=== PATIENT | female | born 1965 | race Caucasian/White ===

== ENCOUNTER → 2016-11-21 | Outpatient (CLI) | payer SELFPAY ==
[~2016-11-21] MED LIST: AMIT25TA9 PO; ASP81TEC PO; CLOP75TA PO; DULO60CA6 PO; FENO135C PO; LISI20TA PO; METF-380 PO; METO25TA2 PO; OMEG-70 PO; OMEG1CAP51 PO; PRAV40TA PO; PRAV80TA2 PO; PRV20T PO; TRAZ-144 PO; TRZ100T PO
--- NOTE | 2016-11-21 14:35 | Diagnostic Imaging Report ---
PROCEDURE: CT chest without contrast. TECHNIQUE: Multiple contiguous axial images were obtained through the chest without the use of intravenous contrast. INDICATION: Dyspnea, followup pulmonary infiltrates. History of tobaccoism. COMPARISON: 10/25/2015. DISCUSSION: Patchy areas of focal interstitial thickening and groundglass opacities are again noted involving all 5 lobes, not significantly changed from the previous exam. Given the stability, findings are suggestive of underlying interstitial scarring though etiology is indeterminate. Small bleb within the left lower lobe is stable. No new consolidation or suspicious pulmonary nodule identified. The pulmonary arteries are dilated suggesting underlying pulmonary artery hypertension, stable. The thoracic aorta is normal in caliber and configuration. Shotty appearing mediastinal lymph nodes are stable. Stable heart size. No pleural or pericardial fluid. The visualized upper abdomen is unremarkable. No acute osseous abnormality identified. IMPRESSION: 1. Multifocal areas of interstitial thickening and groundglass opacities in the bilateral lungs is stable in overall appearance. Findings are nonspecific though could be seen with chronic scarring though an underlying chronic infection or inflammatory process cannot be entirely excluded though felt to be less likely given long-term stability. Recommend continued CT followup in 6-12 months to document further stability. 2. Pulmonary artery hypertension, stable. Dictated by: Dictated on workstation # [id number]
== END ==
LOC: RAD 14:15
PROVIDERS: ATTEND Nurse Practitioner Family
DX: J98.4 Other disorders of lung (principal); R06.02 Shortness of breath; R93.8 Abnormal findings on diagnostic imaging of other specified body structures
CPT/HCPCS: 71250

== ENCOUNTER → 2018-01-26 | Outpatient (CLI) | payer OTHER ==
[~2018-01-26] VITALS: Ht 160 cm; Wt 72.6 kg
[~2018-01-26] MED LIST changes: +CATHETER FLUSH 10 ML SYR IV PRN; +REGADENOSON 0.4 MG/5 ML SYR (LEXISCAN) IV ONE
[2018-01-26 10:07] VITALS: BP 138/82
[2018-01-26 10:10] VITALS: BP 178/82
[2018-01-26 10:12] VITALS: BP 196/91
--- NOTE | 2018-01-27 00:24 | STRESS TEST ---
DATE OF SERVICE: 01/26/2018 RESTING AND POST REGADENOSON TECHNETIUM-99M TETROFOSMIN SPECT CT IMAGING ORDERING PHYSICIAN: Joleen Yo APRN PRIMARY CARE PHYSICIAN: Dr. Otoole. PRIMARY PHYSICIAN: KESHA Javier. CLINICAL DIAGNOSIS: Baseline images were carried out after injection of 10.31 mCi technetium-99m Tetrofosmin. This was followed by 0.4 mg of regadenoson and 29.5 mCi technetium-99m Tetrofosmin for stress imaging. The electrocardiogram showed sinus rhythm at baseline. There was nonspecific ST abnormality, subtle, which persisted during the study. The patient noted some shortness of breath and nausea following regadenoson infusion, which resolved in a few minutes. Review of images at rest and following stress does not indicate any distinct perfusion defect consistent with significant myocardial ischemia or infarction. Gated images show normal global left ventricular systolic function with normal regional wall motion. Left ventricular ejection fraction is calculated to be 74%. Left ventricular end diastolic volume is 75 mL. TID is absent (1.09). CONCLUSIONS: 1. No evidence of any significant myocardial ischemia or infarction on this study. 2. Normal regional wall motion. 3. Normal global left ventricular systolic function with a calculated ejection fraction of 74%. Job ID: [id number] DocumentID: [id number] Dictated Date: 01/26/2018 19:54:00 Lifter Date: 01/27/2018 00:23:46 Dictated By: RAUL GARCIA MD, MA, FACP, FACC,
== END ==
LOC: CARD 08:25
PROVIDERS: ATTEND Nurse Practitioner Family
DX: I25.10 Atherosclerotic heart disease of native coronary artery without angina pectoris (principal); I77.89 Other specified disorders of arteries and arterioles; R07.89 Other chest pain; R06.02 Shortness of breath; I10 Essential (primary) hypertension; E78.5 Hyperlipidemia, unspecified; G47.33 Obstructive sleep apnea (adult) (pediatric); I35.1 Nonrheumatic aortic (valve) insufficiency
CPT/HCPCS: 78452; 93017

== ENCOUNTER 2019-02-01 08:55 | Day surgery (SDC) | payer OTHER ==
[~2019-02-01] VITALS: Ht 160 cm; Wt 63.5 kg
[~2019-02-01 08:55] MED LIST changes: -CATHETER FLUSH 10 ML SYR IV PRN; -REGADENOSON 0.4 MG/5 ML SYR (LEXISCAN) IV ONE
--- OUTSIDE RECORDS SUMMARY | 2019-02-01 08:59 | XMS REPORT | Encounter Summary ---
Author Author [facility] Organization [facility] Address Unknown Phone Unavailable Care Team Providers Care Avionics Systems Engineer Name Role Phone Lachelle Donohue PA-C PCP Loc Auguste RN Unavailable Unavailable Corrine Scales MD Unavailable Reason for Visit * Reason Comments Medication Refill Encounter Details Care Team Description Date Type Department Corrine Scales MD [address] [facility] [address] [place] [address] Medication Refill 08/31/2015 Telephone [facility] - Family Medicine [address] [place] [address] Social History Date Tobacco Use Types Packs/Day Years Used Former Smoker Drinks/Week oz/Week Comments Alcohol Use 3 Glasses of wine 1.8 rare Yes Sex Assigned at Date Recorded Not on file Industry Job Start Date Occupation Not on file Not on file Not on file Travel End Travel History Travel Start No recent travel history available. documented as of this encounter Functional Status Date of Assessment Functional Status Response 07/30/2015 Does the patient have a hearing impairment: No documented as of this encounter Miscellaneous Notes * Telephone Encounter - Corrine Scales MBBS - 08/31/2015 3:42 PM PIN MACHINE OPERATOR Metformin refilled. MACHINE OPERATOR * Telephone Encounter - Nhi Vieyra - 08/31/2015 2:15 PM PIN MACHINE OPERATOR Pt calling requesting refill of METFORMIN 1,000 MG BID to be sent to [facility]endo[facility] [id number] Historical provider, RT Dr Sharma for approval MACHINE OPERATOR documented in this encounter Plan of Treatment Not on filedocumented as of this encounter Visit Diagnoses Not on filedocumented in this encounter
--- OUTSIDE RECORDS SUMMARY | 2019-02-01 08:59 | XMS REPORT | Encounter Summary ---
Author Author [facility] Organization [facility] Address Unknown Phone Unavailable Care Team Providers Care Silk Crepe Machine Operator Name Role Phone Lachelle Donohue PA-C PCP Loc Auguste RN Unavailable Unavailable Corrine Scales MD Unavailable Manuel Negrete MD Unavailable Reason for Visit * Reason Comments Nail Problem Encounter Details Care Team Description Date Type Department Manuel Negrete MD [address] [facility] [address] [place] [address] Onychocryptosis (Primary Dx); Onychomycosis 09/05/2015 Procedure visit [facility] - Family Medicine [address] [place] [address] Social History Date Tobacco Use Types Packs/Day Years Used Former Smoker Drinks/Week oz/Week Comments Alcohol Use 3 Glasses of wine 1.8 rare Yes Sex Assigned at Date Recorded Not on file Industry Job Start Date Occupation Not on file Not on file Not on file Travel End Travel History Travel Start No recent travel history available. documented as of this encounter Last Filed Vital Signs Reading Time Taken Comments Vital Sign 123/74 09/05/2015 11:12 AM WOOD CUTTER Blood Pressure 94 09/05/2015 11:12 AM WOOD CUTTER Pulse 36.4 C (97.5 F) 09/05/2015 11:12 AM WOOD CUTTER Temperature 20 09/05/2015 11:12 AM WOOD CUTTER Respiratory Rate - - Oxygen Saturation - - Inhaled Oxygen Concentration 76.2 kg (168 lb) 09/05/2015 11:12 AM WOOD CUTTER Weight 160 cm (5' 3") 09/05/2015 11:12 AM WOOD CUTTER Height 29.76 09/05/2015 11:12 AM WOOD CUTTER Body Mass Index documented in this encounter Functional Status Date of Assessment Functional Status Response 07/30/2015 Does the patient have a hearing impairment: No documented as of this encounter Progress Notes * Manuel Negrete MD - 09/06/2015 10:53 AM WOOD CUTTER ATTESTATION I was present during the entire procedure performed by Dr Amador and agree with his documentation. Staff name: Manuel Negrete MD CUTTER * Linh Oconnor LPN - 09/05/2015 12:14 PM WOOD CUTTER [facility] [facility] documented in this encounter Procedure Notes * Harmeet Amador MD - 09/05/2015 12:06 PM WOOD CUTTER Associated Order(s): NAIL PROCEDURE Procedure(s): MS AVULSION NAIL PLATE PARTIAL/COMPLETE SIMPLE 1; MS BIOPSY NAIL U NIT SEPARATE PROCEDURE Pre-Procedure Diagnose(s): Onychomycosis; Onychocryptosis PROCEDURE: Lateral Matricectomy INDICATION: Onychocryptosis, onychomycosis Attending: Manuel Negrete MD Resident: Harmeet Amador DESCRIPTION: Risk and benefits of a lateral matricectomy for the patient's onych ocryptosis, as well as, a summary of the procedure was discussed with the patien t. Patient agreed to continue and consent was given (written and verbal). The to e was examined. The 1st toenail of the left foot appeared to have obvious onycho cryptosis on the medial side. The patient verified that this was the correct to e. The foot was placed dorsal side up. The entire distal toe was cleansed with B etadyne. The area was draped. 3 mL of 1% lidocaine (no epinephrine) was injected into the proximal toe near its medial edge. Another 3 mL was injected near the opposite lateral edge. The patient verified complete anesthesia. A nail elevator was used to gently pry up, from distal to proximal, a 1-2 mm strip of nail on t he affected edge until it was from its bed extending to the cuticle. O ne-third of the nail from the lateral aspect was cut. A pair of hemostats was af fixed to the loosened nail and the was gently pulled from the bed. Loosened the remainder of adhesions on medial aspect and removed in the same fashion. Bleedin g was minimal. Pressure was applied to the toe until bleeding stopped. Vaseline gauze placed and dressing applied. Time >[address] Negrete was present for the entire procedure. Harmeet Amador MD Family Medicine, PGY-2 CUTTER documented in this encounter Plan of Treatment Not on filedocumented as of this encounter Results * NAIL PROCEDURE (09/05/2015 12:20 PM WOOD CUTTER) Performing Organization Address City/State/Zipcode Phone Number IN CLINIC documented in this encounter Visit Diagnoses Diagnosis Onychocryptosis - Primary Ingrowing nail Onychomycosis Dermatophytosis of nail documented in this encounter
--- OUTSIDE RECORDS SUMMARY | 2019-02-01 08:59 | XMS REPORT | Clinical Summary ---
Author Author [facility] Organization [facility] Address Unknown Phone Unavailable Care Team Providers Care Lapel Padder Name Role Phone Lachelle Donohue PA-C PCP Loc Auguste RN Unavailable Unavailable Corrine Scales MD Unavailable Manuel Negrete MD Unavailable Source Comments Some departments are not documenting in the electronic medical record. If you d o not see the information that you expected, contact Release of Information in [facility] [employer] Information Management department at [phone] for further assistan ce in locating additional records.[facility] Allergies Comments Active Allergy Reactions Severity Noted Date Hydrocodone ITCHING Low 07/30/2015 Medications End Date Status Medication Sig Dispensed Refills Start Date Active rosuvastatin (CRESTOR) 40 Take 40 mg by 0 mg tablet mouth daily. Active aspirin EC 81 mg tablet Take 81 mg by 0 mouth daily. Active metoprolol XL (TOPROL XL) Take 100 mg 0 100 mg tablet by mouth daily. Active rOPINIRole (REQUIP) 0.5 Take 0.5 mg 0 mg tablet by mouth three times daily. Active DULoxetine DR (CYMBALTA) Take 60 mg by 0 60 mg capsule mouth daily. Active gabapentin (NEURONTIN) Take 600 mg 0 600 mg tablet by mouth three times daily. Active Magnesium 250 mg tab Take by 0 mouth. Active CALCIUM CARBONATE/VITAMIN Take by 0 D2 (CALCIUM + VITAMIN D mouth. PO) Active other 1 Dose. 0 medicationIndications: Indications: Garlic Garlic Active [place]-3 Fatty Take 1 Cap by 0 Acids-Vitamin E (FISH mouth daily. OIL) 1,000 mg cap Active flaxseed 1,000 mg cap Take by 0 mouth. Active vitamins, multiple cap Take 1 Cap by 0 mouth daily. Active vitamins, B complex tab Take 1 Tab by 0 mouth daily. Active melatonin 3 mg tab Take 6 mg by 0 mouth at bedtime daily. Active lisinopril (PRINIVIL, Take 1 Tab by 90 Tab 3 ZESTRIL) 2.5 mg mouth daily. 5 tabletIndications: Type 2 diabetes mellitus with complication (HCC) Active metFORMIN (GLUCOPHAGE) Take 1 Tab by 180 Tab 2 1,000 mg mouth twice 6 tabletIndications: type 2 daily with diabetes mellitus meals. Indications: TYPE 2 DIABETES MELLITUS Active acetaminophen-codeine Take 1-2 Tabs 12 Tab 0 (TYLENOL #3) 300-30 mg by mouth 6 tablet every 4 hours as needed for Pain. Active Problems Problem Noted Date Type 2 diabetes mellitus with complication 08/10/2015 Marijuana abuse 08/10/2015 Essential hypertension 08/10/2015 CAD S/P percutaneous coronary angioplasty 08/10/2015 Anxiety 08/10/2015 Depression 08/10/2015 Insomnia due to medical condition 08/10/2015 Uncontrolled restless leg syndrome 08/10/2015 Family History Medical History Relation Name Comments Alcohol abuse Brother Arthritis Brother Asthma Brother COPD Brother Depression Brother Diabetes Brother Drug Abuse Brother Heart Disease Brother High Cholesterol Brother Hypertension Brother Learning Disability Brother Mental Illness Brother Vision Loss Brother Depression Daughter Drug Abuse Daughter Learning Disability Daughter Mental Illness Daughter Mental Retardation Daughter Vision Loss Daughter Arthritis Maternal Grandfather Diabetes Maternal Grandfather Hearing Loss Maternal Grandfather Heart Disease Maternal Grandfather High Cholesterol Maternal Grandfather Hypertension Maternal Grandfather Vision Loss Maternal Grandfather Arthritis Maternal Grandmother Depression Maternal Grandmother Diabetes Maternal Grandmother Heart Disease Maternal Grandmother High Cholesterol Maternal Grandmother Hypertension Maternal Grandmother Vision Loss Maternal Grandmother Arthritis Mother COPD Mother Depression Mother Diabetes Mother Heart Disease Mother High Cholesterol Mother Hypertension Mother Learning Disability Mother Mental Illness Mother Vision Loss Mother Relation Name Status Comments Brother Daughter Maternal Grandfather Maternal Grandmother Mother Social History Date Tobacco Use Types Packs/Day Years Used Former Smoker Drinks/Week oz/Week Comments Alcohol Use 3 Glasses of wine 1.8 rare Yes Sex Assigned at Date Recorded Not on file Industry Job Start Date Occupation Not on file Not on file Not on file Travel End Travel History Travel Start No recent travel history available. Last Filed Vital Signs Reading Time Taken Comments Vital Sign 123/74 09/05/2015 11:12 AM LABOR CONCILIATOR Blood Pressure 94 09/05/2015 11:12 AM LABOR CONCILIATOR Pulse 36.4 C (97.5 F) 09/05/2015 11:12 AM LABOR CONCILIATOR Temperature 20 09/05/2015 11:12 AM LABOR CONCILIATOR Respiratory Rate 97% 07/30/2015 4:00 PM LABOR CONCILIATOR Oxygen Saturation - - Inhaled Oxygen Concentration 76.2 kg (168 lb) 09/05/2015 11:12 AM LABOR CONCILIATOR Weight 160 cm (5' 3") 09/05/2015 11:12 AM LABOR CONCILIATOR Height 29.76 09/05/2015 11:12 AM LABOR CONCILIATOR Body Mass Index Plan of Treatment Health Maintenance Due Date Last Done Comments HEPATITIS C SCREENING 1965 PHYSICAL (COMPREHENSIVE) 1972 EXAM HIV SCREENING 1980 DILATED EYE EXAM 1983 DTAP/TDAP VACCINES (1 - 1983 Tdap) PNEUMONIA VACCINE (DM) 1983 CERVICAL CANCER SCREENING 1995 BREAST CANCER SCREENING 2005 COLORECTAL CANCER 2015 SCREENING SHINGLES RECOMBINANT 2015 VACCINE (1 of 2) HBA1C 02/06/2016 08/07/2015 FOOT EXAM 08/07/2016 08/07/2015 MICROALBUMIN 08/07/2016 08/07/2015 INFLUENZA VACCINE 05/17/2019 Results Not on filefrom Last 3 Months Insurance Type Payer Benefit Subscriber ID Effective Phone Address Plan / Dates Group [place] x[place]xx 2015 [place], [place] (Home) [place] [address] Advance Directives Patient Beater Lead Explanation Type Date Recorded Advance 07/30/2015 2:09 PM Directive/DPOA
--- OUTSIDE RECORDS SUMMARY | 2019-02-01 09:00 | XMS REPORT | Encounter Summary ---
Author Author [facility] Address Unknown Phone Unavailable Care Team Providers Care Operations Processor Name Role Phone Lachelle Donohue PA-C PCP Loc Auguste RN Unavailable Unavailable Corrine Scales MD Unavailable Reason for Visit * Reason Comments Establish Care Hypertension Encounter Details Care Team Description Date Type Department Corrine Scales MD [address] [facility] [address] 1 [place] [address] Type 2 diabetes mellitus with complication (Primary Dx); Marijuana abuse; Encounter to establish care with new doctor; Essential hypertension; CAD S/P percutaneous coronary angioplasty; Onychomycosis of toenail; Uncontrolled restless leg syndrome; Insomnia due to medical condition; Anxiety; Depression 08/07/2015 Office Visit [facility] - Family Medicine [address] [facility] [address] [place] [address] Social History Date Tobacco Use [...] Signs Reading Time Taken Comments Vital Sign 134/90 08/07/2015 10:05 AM LABORATORY ANALYST Blood Pressure 80 08/07/2015 10:05 AM LABORATORY ANALYST Pulse 36.8 C (98.2 F) 08/07/2015 10:05 AM LABORATORY ANALYST Temperature 20 08/07/2015 10:05 AM LABORATORY ANALYST Respiratory Rate - - Oxygen Saturation - - Inhaled Oxygen Concentration 76.2 kg (168 lb) 08/07/2015 10:05 AM LABORATORY ANALYST Weight 160 cm (5' 3") 08/07/2015 10:05 AM LABORATORY ANALYST Height 29.76 08/07/2015 10:05 AM LABORATORY ANALYST Body Mass Index documented in this encounter Functional Status Date of Assessment Functional Status Response 07/30/2015 Does the patient have a hearing impairment: No documented as of this encounter Progress Notes * Nikky Deluca MD - 08/16/2015 4:58 PM LABORATORY ANALYST I performed a history and physical examination of the patient and discussed the management with the resident. I reviewed the resident's note and agree with the documented findings and plan of care. RATORY ANALYST * Corrine Scales MBBS - 08/07/2015 10:17 AM LABORATORY ANALYST Date of Service: 08/07/2015 Subjective: Dian Baez is a 50 y.o. female. History of Present Illness 50 y/o F with PMH HTN, DM, Depression, HLD, Anxiety, Fibromyalgia, COPD here to establish care. Coming from [facility]. Last time she saw a physician was in April. HTN since over 20 years BP : SBP 160's, DBP : 100's On Metoprolol XL 100mg qday since 6 months. Denies headache, swelling of legs, shortness of breath Restless leg syndrome On Ropinirole 1.5 mg tab at night. Previously on 5 mg at night Does Marijuana at night to keep herself calm DM since over 20 years Does not check her BS at home Per patient her hemoglobin a 1c is well controlled. DM neuropathy and on Gabapentin Diet : portion of fruits and vegatables and baked meat Exercise : None Medications : complaint Insomnia since 3-5 years trouble initiating and maintaining sleep On Melatonin 1.5 mg at night contributing factors : restless leg syndrome. Anxiety and depression : Has an appointment with psychiatry at [facility] s/p stent R side of heart - 2008 for CO PSH : DAVIDA in 25 years ago Appendectomy when she was 15 Gynecologic History DAVIDA 25 years ago. Marital status: Obstetric History Social History Job : None Smoker: quit 5 months ago, on vapour Alcohol: None Drugs: Marijuana Lives with her friend in . Her friend in a RN at [employer]. Depression: Not controlled. Sleeping: On melatonin Family History Family hx of uterine cancers: in mother's family Family hx of colon cancer: none Family hx of premature CAD: none Screening: Last Mammogram: 2008 ; Normal Last Lipid Profile: Not known Last Colonoscopy: Normal CORDWAINER ROS: denies breast pain or new or enlarging lumps on self exam, no abnormal vaginal bleeding, no discharge or pelvic pain, no hot flashes. Review of Systems Constitutional: Positive for appetite change. Negative for fever, activity naranjo e and unexpected weight change. HENT: Negative for rhinorrhea, sore throat and trouble swallowing. Respiratory: Negative for cough, shortness of breath and wheezing. Cardiovascular: Negative for chest pain, palpitations and leg swelling. Gastrointestinal: Negative for nausea, vomiting, abdominal pain and constipation . Genitourinary: Negative for dysuria. Musculoskeletal: Positive for back pain and arthralgias. Neurological: Positive for light-headedness. Negative for headaches. Objective: aspirin EC 81 mg tablet Take 81 mg by mouth daily. CALCIUM CARBONATE/VITAMIN D2 (CALCIUM + VITAMIN D PO) Take by mouth. DULoxetine DR (CYMBALTA) 60 mg capsule Take 60 mg by mouth daily. flaxseed 1,000 mg cap Take by mouth. gabapentin (NEURONTIN) 600 mg tablet Take 600 mg by mouth three times daily. lisinopril (PRINIVIL, ZESTRIL) 2.5 mg tablet Take 1 Tab by mouth daily. Magnesium 250 mg tab Take by mouth. melatonin 3 mg tab Take 6 mg by mouth at bedtime daily. metFORMIN (GLUCOPHAGE) 1,000 mg tablet Take 1,000 mg by mouth twice daily wi th meals. metoprolol XL (TOPROL XL) 100 mg tablet Take 100 mg by mouth daily. [place]-3 Fatty Acids-Vitamin E (FISH OIL) 1,000 mg cap Take 1 Cap by mouth da carmen. other medication 1 Dose. Indications: Garlic rOPINIRole (REQUIP) 0.5 mg tablet Take 0.5 mg by mouth three times daily. rosuvastatin (CRESTOR) 40 mg tablet Take 40 mg by mouth daily. vitamins, B complex tab Take 1 Tab by mouth daily. vitamins, multiple cap Take 1 Cap by mouth daily. Filed Vitals: 12/22/15 1005 BP: 134/90 Pulse: 80 Temp: 36.8 C (98.2 F) TempSrc: Oral Resp: 20 Height: 160 cm (63") Weight: 76.204 kg (168 lb) Body mass index is 29.77 kg/(m^2). Physical Exam HENT: Head: Normocephalic and atraumatic. Right Ear: External ear normal. Left Ear: External ear normal. Eyes: EOM are normal. Pupils are equal, round, and reactive to light. Neck: Normal range of motion. Cardiovascular: Normal rate and regular rhythm. Murmur (systolic in Aortic area) heard. Pulmonary/Chest: Effort normal and breath sounds normal. She has no wheezes. Abdominal: Soft. She exhibits no distension. There is no tenderness. Musculoskeletal: She exhibits no edema. Nursing note and vitals reviewed. Diabetic Foot Exam Bilateral vascular, sensation, integument are normal: Yes Vascular Status Left:dorsalis pedis normal, Right:dorsalis pedis normal, Monofilament Testing Left:diminished on Great and 2nd toe Right:diminished on Great and 2nd toe Skin Integrity Left:Normal Right:Callous Foot Structure Left:onychomycosis of great toe Right:onychomycosis of great toe Assessment and Plan: Dian was seen today for establish care and hypertension. Diagnoses and associated orders for this visit: Type 2 diabetes mellitus with complication - Encouraged low carbohydrate diet, blood sugar checks. Card given to record blo od sugar reading. - Educated foot care - HEMOGLOBIN A1C (Today); - 6.9 - LIPID PROFILE (Today); LDL - 71 - MICROALBUMIN-URINE RANDOM (Today); - 13.0 - MAGNESIUM (Today); 1.7 - lisinopril (PRINIVIL, ZESTRIL) 2.5 mg tablet; Take 1 Tab by mouth daily. for r enal protection Marijuana abuse - AMPHETAMINES-URINE RANDOM; Future - BARBITURATES-URINE RANDOM; Future - BENZODIAZEPINES-URINE RANDOM; Future - CANNABINOIDS-URINE RANDOM; Future - COCAINE-URINE RANDOM; Future - OPIATES-URINE RANDOM; Future - PHENCYCLIDINES-URINE RANDOM; Future - UDS - negative Encounter to establish care with new doctor - Request records from previous physician. Essential hypertension Patient counseled on weight loss (goal BMI 20-25), 2g Na diet, exercise, and valorie iding alcohol. Pt given BP log and asked to record at least 2-3 readings per we ek for next visit. CAD S/P percutaneous coronary angioplasty Recommended to take Aspirin 325 mg qday On Crestor Onychomycosis of toe Referred to procedure clinic for toe nail removal. Restless leg syndrome, uncontrolled On Ropironole 1.5 mg tablet qhs Will review records and increase the dose in next visit Anxiety and depression Pt has an appointment today with [facility] with psychiatry and zoila covington. Pt seen and discussed with Dr.Fitz Corrine Sharma PGY1 Family Medicine Pager - [phone] RATORY ANALYST documented in this encounter Plan of Treatment Not on filedocumented as of this encounter Results * PHENCYCLIDINES-URINE RANDOM (08/07/2015 11:43 AM LABORATORY ANALYST) Phencyclidine NEG NEG-NEG MAIN LAB (PCP) Comment: RESULTS WERE OBTAINED BY IMMUNOASSAY AND ARE PRESUMPTIVE ONLY. POSITIVE INDICATES THE PRESENCE OF SUBSTANCE WITH CHARACTERISTICS SIMILAR TO DRUG-DRUG CLASS OR METABOLITE IN CONC. EQUAL TO OR EXCEEDING VALUES LISTED. PHENCYCLIDINE (PCP)25 NG/ML Specimen Urine - Urine Performing Organization Address [facility] Phone Number MAIN LAB [address] [place] [address] * OPIATES-URINE RANDOM (08/07/2015 11:43 AM LABORATORY ANALYST) Opiates-Urine NEG NEG-NEG MAIN LAB Comment: RESULTS WERE OBTAINED BY IMMUNOASSAY AND ARE PRESUMPTIVE ONLY. POSITIVE INDICATES THE PRESENCE OF SUBSTANCE WITH CHARACTERISTICS SIMILAR TO DRUG-DRUG CLASS OR METABOLITE IN CONC. EQUAL TO OR EXCEEDING VALUES LISTED. OPIATES 2000 NG/ML Specimen Urine - Urine Performing Organization Address [facility] Phone Number MAIN LAB [address] [place] [address] * COCAINE-URINE RANDOM (08/07/2015 11:43 AM LABORATORY ANALYST) Cocaine-Urine NEG NEG-NEG MAIN LAB Comment: RESULTS WERE OBTAINED BY IMMUNOASSAY AND ARE PRESUMPTIVE ONLY. POSITIVE INDICATES THE PRESENCE OF SUBSTANCE WITH CHARACTERISTICS SIMILAR TO DRUG-DRUG CLASS OR METABOLITE IN CONC. EQUAL TO OR EXCEEDING VALUES LISTED. COCAINE 300 NG/ML Specimen Urine - Urine Performing Organization Address [facility] Phone Number [facility] [address] [place] [address] * CANNABINOIDS-URINE RANDOM (08/07/2015 11:43 AM LABORATORY ANALYST) THC NEG NEG-NEG [facility] Comment: RESULTS WERE OBTAINED BY IMMUNOASSAY AND ARE PRESUMPTIVE ONLY. POSITIVE INDICATES THE PRESENCE OF SUBSTANCE WITH CHARACTERISTICS SIMILAR TO DRUG-DRUG CLASS OR METABOLITE IN CONC. EQUAL TO OR EXCEEDING VALUES LISTED. CANNABINOIDS 50 NG/ML Specimen Urine - Urine Performing Organization Address [facility] Phone Number [facility] [address] [place] [address] * BENZODIAZEPINES-URINE RANDOM (08/07/2015 11:43 AM LABORATORY ANALYST) Benzodiazepines NEG NEG-NEG [facility] Comment: RESULTS WERE OBTAINED BY IMMUNOASSAY AND ARE PRESUMPTIVE ONLY. POSITIVE INDICATES THE PRESENCE OF SUBSTANCE WITH CHARACTERISTICS SIMILAR TO DRUG-DRUG CLASS OR METABOLITE IN CONC. EQUAL TO OR EXCEEDING VALUES LISTED. BENZODIAZEPINES 200 NG/ML Specimen Urine - Urine Performing Organization [facility] Phone Number [facility] [address] [place] [address] * BARBITURATES-URINE RANDOM (08/07/2015 11:43 AM LABORATORY ANALYST) Barbiturates,Ur NEG NEG-NEG [facility] ine Comment: RESULTS WERE OBTAINED BY IMMUNOASSAY AND ARE PRESUMPTIVE ONLY. POSITIVE INDICATES THE PRESENCE OF SUBSTANCE WITH CHARACTERISTICS SIMILAR TO DRUG-DRUG CLASS OR METABOLITE IN CONC. EQUAL TO OR EXCEEDING VALUES LISTED. BARBITURATES 200 NG/ML Specimen Urine - Urine Performing Organization Address [facility] Phone Number [facility] [address] [place] [address] * AMPHETAMINES-URINE RANDOM (08/07/2015 11:43 AM LABORATORY ANALYST) Amphetamines NEG NEG-NEG MAIN LAB Comment: RESULTS WERE OBTAINED BY IMMUNOASSAY AND ARE PRESUMPTIVE ONLY. POSITIVE INDICATES THE PRESENCE OF SUBSTANCE WITH CHARACTERISTICS SIMILAR TO DRUG-DRUG CLASS OR METABOLITE IN CONC. EQUAL TO OR EXCEEDING VALUES LISTED. AMPHETAMINES 1000 NG/ML Specimen Urine - Urine Performing Organization Address [facility] Phone Number [facility] [address] [place] [address] * MAGNESIUM (08/07/2015 11:42 AM LABORATORY ANALYST) Magnesium 1.7 1.6 - 2.6 MG/DL [facility] MAIN LAB Specimen Blood Performing Organization Address [facility] Phone [facility] MAIN LAB [address] [place] [address] * MICROALBUMIN-URINE RANDOM (08/07/2015 11:42 AM LABORATORY ANALYST) Microalbumin, 13.0 <19 MCG/ML [facility] MAIN LAB Random Specimen Urine - Urine Performing Organization Address [facility] Phone Number MAIN LAB [address] [place] [address] * LIPID PROFILE (08/07/2015 11:42 AM LABORATORY ANALYST) Cholesterol 155 <200 MG/DL [facility] MAIN LAB Triglycerides 367 (H) <150 MG/DL [facility] MAIN [facility] HDL 39 (L) >40 MG/DL [facility] MAIN [facility] LDL 71 <100 MG/DL [facility] VLDL 73 MG/DL [facility] MAIN [facility] Non HDL 116 MG/DL [facility] MAIN [facility] Cholesterol Comment: Calculated non-HDL Cholesterol (non-HDL-C) indirectly measures LDL-C, Lp(a), IDL-C, and VLDL-C.It is a surrogate marker for Apoprotein B.Non-HDL-C is a more accurate measure of atherogenic particle concentration than LDL-C in patients with hypertriglyceridemia (>200 mg/dL). This calculation is now recommended for evaluation and treatment of coronary heart disease according to the National Cholesterol Education Program Adult Treatment Protocol-III.See Crouch et al. Am J. Cardiol. 2008, 101:1642-3819. The "goal" should be less than 130 mg/dL, but will vary according to risk factors. Specimen Blood Performing Organization Address [facility] Phone Number MAIN LAB [address] [place] [address] * HEMOGLOBIN A1C (08/07/2015 11:42 AM LABORATORY ANALYST) Hemoglobin A1C 6.9 (H) 4.0 - 6.0 % MAIN LAB Comment: The ADA recommends that most patients with type 1 and type 2 diabetes maintain an A1c level <7%. Specimen Blood Performing Organization Address [facility] Phone Number MAIN LAB [address] [place] [address] documented in this encounter Visit Diagnoses Diagnosis Type 2 diabetes mellitus with complication (HCC) - Primary Marijuana abuse Cannabis abuse, unspecified Encounter to establish care with new doctor Other reasons for seeking consultation Essential hypertension Unspecified essential hypertension CAD S/P percutaneous coronary angioplasty Coronary atherosclerosis of [place] coronary artery Onychomycosis of toenail Dermatophytosis of nail Uncontrolled restless leg syndrome Restless legs syndrome (RLS) 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
--- OUTSIDE RECORDS SUMMARY | 2019-02-01 09:00 | XMS REPORT | Encounter Summary ---
Author Author [facility] Organization [facility] Address Unknown Phone Unavailable Care Team Providers Care Social Welfare Research Worker Name Role Phone Lachelle Donohue PA-C PCP Loc Auguste RN Unavailable Unavailable Corrine Scales MD Unavailable Encounter Details Care Team Description Date Type Department Nikky Deluca MD [address] [facility] [address] [place] [address] Cannabis abuse, uncomplicated 08/07/2015 Hospital [facility] [address] [facility] [place] [address] Social History Date Tobacco Use Types Packs/Day [...] impairment: No documented as of this encounter Medications at Time of Discharge Start Date End Date Medication Sig Dispensed Refills aspirin EC 81 mg tablet Take 81 mg by 0 mouth daily. CALCIUM CARBONATE/VITAMIN Take by 0 D2 (CALCIUM + VITAMIN D mouth. PO) DULoxetine DR (CYMBALTA) Take 60 mg by 0 60 mg capsule mouth daily. flaxseed 1,000 mg cap Take by 0 mouth. gabapentin (NEURONTIN) Take 600 mg 0 600 mg tablet by mouth three times daily. 08/07/2015 lisinopril (PRINIVIL, Take 1 Tab by 90 Tab 3 ZESTRIL) 2.5 mg mouth daily. tabletIndications: Type 2 diabetes mellitus with complication (HCC) Magnesium 250 mg tab Take by 0 mouth. melatonin 3 mg tab Take 6 mg by 0 mouth at bedtime daily. metoprolol XL (TOPROL XL) Take 100 mg 0 100 mg tablet by mouth daily. [place]-3 Fatty Take 1 Cap by 0 Acids-Vitamin E (FISH mouth daily. OIL) 1,000 mg cap other 1 Dose. 0 medicationIndications: Indications: Garlic Garlic rOPINIRole (REQUIP) 0.5 Take 0.5 mg 0 mg tablet by mouth three times daily. rosuvastatin (CRESTOR) 40 Take 40 mg by 0 mg tablet mouth daily. vitamins, B complex tab Take 1 Tab by 0 mouth daily. vitamins, multiple cap Take 1 Cap by 0 mouth daily. 08/31/2015 metFORMIN (GLUCOPHAGE) Take 1,000 mg 0 1,000 mg tablet by mouth twice daily with meals. documented as of this encounter Plan of Treatment Not on filedocumented as of this encounter Procedures Comments Procedure Name Priority Date/Time Associated Diagnosis PHENCYCLIDINES-URINE Routine 08/07/2015 Marijuana abuse RANDOM 11:43 AM REGISTRATION SCHEDULING SPECIALIST OPIATES-URINE RANDOM Routine 08/07/2015 Marijuana abuse 11:43 AM REGISTRATION SCHEDULING SPECIALIST COCAINE-URINE RANDOM Routine 08/07/2015 Marijuana abuse 11:43 AM REGISTRATION SCHEDULING SPECIALIST CANNABINOIDS-URINE RANDOM Routine 08/07/2015 Marijuana abuse 11:43 AM REGISTRATION SCHEDULING SPECIALIST BENZODIAZEPINES-URINE Routine 08/07/2015 Marijuana abuse RANDOM 11:43 AM REGISTRATION SCHEDULING SPECIALIST BARBITURATES-URINE RANDOM Routine 08/07/2015 Marijuana abuse 11:43 AM REGISTRATION SCHEDULING SPECIALIST AMPHETAMINES-URINE RANDOM Routine 08/07/2015 Marijuana abuse 11:43 AM REGISTRATION SCHEDULING SPECIALIST MICROALBUMIN-URINE RANDOM Routine 08/07/2015 Type 2 diabetes mellitus 11:42 AM REGISTRATION SCHEDULING SPECIALIST with complication MAGNESIUM Routine 08/07/2015 Type 2 diabetes mellitus 11:42 AM REGISTRATION SCHEDULING SPECIALIST with complication HEMOGLOBIN A1C Routine 08/07/2015 Type 2 diabetes mellitus 11:42 AM REGISTRATION SCHEDULING SPECIALIST with complication LIPID PROFILE Routine 08/07/2015 Type 2 diabetes mellitus 11:42 AM REGISTRATION SCHEDULING SPECIALIST with complication documented in this encounter Results * PHENCYCLIDINES-URINE RANDOM (08/07/2015 11:43 AM REGISTRATION SCHEDULING SPECIALIST) Phencyclidine NEG NEG-NEG MAIN LAB (PCP) Comment: RESULTS WERE OBTAINED BY IMMUNOASSAY AND ARE PRESUMPTIVE ONLY. POSITIVE INDICATES THE PRESENCE OF SUBSTANCE WITH CHARACTERISTICS SIMILAR TO DRUG-DRUG CLASS OR METABOLITE IN CONC. EQUAL TO OR EXCEEDING VALUES LISTED. PHENCYCLIDINE (PCP)25 NG/ML Specimen Urine - Urine Performing Organization Address [facility] Phone Number MAIN LAB [address] [place] [address] * OPIATES-URINE RANDOM (08/07/2015 11:43 AM REGISTRATION SCHEDULING SPECIALIST) Opiates-Urine NEG NEG-NEG MAIN LAB Comment: RESULTS WERE OBTAINED BY IMMUNOASSAY AND ARE PRESUMPTIVE ONLY. POSITIVE INDICATES THE PRESENCE OF SUBSTANCE WITH CHARACTERISTICS SIMILAR TO DRUG-DRUG CLASS OR METABOLITE IN CONC. EQUAL TO OR EXCEEDING VALUES LISTED. OPIATES 2000 NG/ML Specimen Urine - Urine Performing Organization Address [facility] Phone Number MAIN LAB [address] [place] [address] * COCAINE-URINE RANDOM (08/07/2015 11:43 AM REGISTRATION SCHEDULING SPECIALIST) Cocaine-Urine NEG NEG-NEG MAIN LAB Comment: RESULTS WERE OBTAINED BY IMMUNOASSAY AND ARE PRESUMPTIVE ONLY. POSITIVE INDICATES THE PRESENCE OF SUBSTANCE WITH CHARACTERISTICS SIMILAR TO DRUG-DRUG CLASS OR METABOLITE IN CONC. EQUAL TO OR EXCEEDING VALUES LISTED. COCAINE 300 NG/ML Specimen Urine - Urine Performing Organization Address [facility] Phone Number MAIN LAB [address] [place] [address] * CANNABINOIDS-URINE RANDOM (08/07/2015 11:43 AM REGISTRATION SCHEDULING SPECIALIST) THC NEG NEG-NEG MAIN LAB Comment: RESULTS WERE OBTAINED BY IMMUNOASSAY AND ARE PRESUMPTIVE ONLY. POSITIVE INDICATES THE PRESENCE OF SUBSTANCE WITH CHARACTERISTICS SIMILAR TO DRUG-DRUG CLASS OR METABOLITE IN CONC. EQUAL TO OR EXCEEDING VALUES LISTED. CANNABINOIDS 50 NG/ML Specimen Urine - Urine Performing Organization Address [facility] Phone Number MAIN LAB [address] [place] [address] * BENZODIAZEPINES-URINE RANDOM (08/07/2015 11:43 AM REGISTRATION SCHEDULING SPECIALIST) Benzodiazepines NEG NEG-NEG MAIN LAB Comment: RESULTS WERE OBTAINED BY IMMUNOASSAY AND ARE PRESUMPTIVE ONLY. POSITIVE INDICATES THE PRESENCE OF SUBSTANCE WITH CHARACTERISTICS SIMILAR TO DRUG-DRUG CLASS OR METABOLITE IN CONC. EQUAL TO OR EXCEEDING VALUES LISTED. BENZODIAZEPINES 200 NG/ML Specimen Urine - Urine Performing Organization Address [facility] Phone Number MAIN LAB [address] [place] [address] * BARBITURATES-URINE RANDOM (08/07/2015 11:43 AM REGISTRATION SCHEDULING SPECIALIST) Barbiturates,Ur NEG NEG-NEG MAIN LAB ine Comment: RESULTS WERE OBTAINED BY IMMUNOASSAY AND ARE PRESUMPTIVE ONLY. POSITIVE INDICATES THE PRESENCE OF SUBSTANCE WITH CHARACTERISTICS SIMILAR TO DRUG-DRUG CLASS OR METABOLITE IN CONC. EQUAL TO OR EXCEEDING VALUES LISTED. BARBITURATES 200 NG/ML Specimen Urine - Urine Performing Organization Address [facility] Phone Number MAIN LAB [address] [place] [address] * AMPHETAMINES-URINE RANDOM (08/07/2015 11:43 AM REGISTRATION SCHEDULING SPECIALIST) Amphetamines NEG NEG-NEG MAIN LAB Comment: RESULTS WERE OBTAINED BY IMMUNOASSAY AND ARE PRESUMPTIVE ONLY. POSITIVE INDICATES THE PRESENCE OF SUBSTANCE WITH CHARACTERISTICS SIMILAR TO DRUG-DRUG CLASS OR METABOLITE IN CONC. EQUAL TO OR EXCEEDING VALUES LISTED. AMPHETAMINES 1000 NG/ML Specimen Urine - Urine Performing Organization Address [facility] Phone Number MAIN LAB [address] [place] [address] * MICROALBUMIN-URINE RANDOM (08/07/2015 11:42 AM REGISTRATION SCHEDULING SPECIALIST) Microalbumin, 13.0 <19 MCG/ML MAIN LAB Random Specimen Urine - Urine Performing Organization Address [facility] Phone Number MAIN LAB [address] [place] [address] * MAGNESIUM (08/07/2015 11:42 AM REGISTRATION SCHEDULING SPECIALIST) Magnesium 1.7 1.6 - 2.6 MG/DL MAIN LAB Specimen Blood Performing Organization Address [facility] Phone Number MAIN LAB [address] [place] [address] * LIPID PROFILE (08/07/2015 11:42 AM REGISTRATION SCHEDULING SPECIALIST) Cholesterol 155 <200 MG/DL [facility] MAIN LAB [...] National Cholesterol Education Program Adult Treatment Protocol-III.See Miko et al. Am J. Cardiol. 2008, 101:5380-4458. The "goal" should be less than 130 mg/dL, but will vary according to risk factors. Specimen Blood Performing Organization Address City/[facility]/Zipcode Phone Number [facility] [address] [place] [address] * HEMOGLOBIN A1C (08/07/2015 11:42 AM REGISTRATION SCHEDULING SPECIALIST) Hemoglobin A1C 6.9 (H) 4.0 - 6.0 % [facility] MAIN LAB Comment: The ADA recommends that most patients with type 1 and type 2 diabetes maintain an A1c level <7%. Specimen Blood Performing Organization Address City/[facility]/Zipcode Phone Number [facility] [address] [place] [address] documented in this encounter Visit Diagnoses Diagnosis Type 2 diabetes mellitus with complication (HCC) Marijuana abuse Cannabis abuse, unspecified documented in this encounter
--- OUTSIDE RECORDS SUMMARY | 2019-02-01 09:00 | XMS REPORT | Encounter Summary ---
Author Author [facility] Organization [facility] Address Unknown Phone Unavailable Care Team Providers Care Thermostat Mechanic Name Role Phone Lachelle Donohue PA-C PCP Loc Auguste RN Unavailable Unavailable Reason for Visit * Reason Comments Headache BP 200/110 this a.m. Hx of htn. on metoprolol. Dizziness, nausea. Encounter Details Care Team Description Date Type Department Nelson Rooney DO [address] [facility] [place] [address] 07/30/2015 Emergency [facility] [address] [place] [address] Social History Date Tobacco Use Types Packs/Day Years Used Former Smoker Drinks/Week oz/Week Comments Alcohol Use rare Yes Sex Assigned at Date Recorded Not on file Industry Job Start Date Occupation Not on file Not on file Not on file Travel End Travel History Travel Start No recent travel history available. documented as of this encounter Last Filed Vital Signs Reading Time Taken Comments Vital Sign 172/86 07/30/2015 4:00 PM [employer] Blood Pressure 66 07/30/2015 4:00 PM [employer] Pulse 36.5 C (97.7 F) 07/30/2015 12:59 PM [employer] Temperature - - Respiratory Rate 97% 07/30/2015 4:00 PM [employer] Oxygen Saturation - - Inhaled Oxygen Concentration 74.8 kg (165 lb) 07/30/2015 12:59 PM [employer] SUPERVIS[employer] Weight - - Height - - Body Mass Index documented in this encounter Functional Status Date of Assessment Functional Status Response 07/30/2015 Does the patient have a hearing impairment: No documented as of this encounter Discharge Instructions * Instructions* Edgardo Ordoñez MD - 07/30/2015 You were seen today for headache, lightheadedness. Your blood pressure today wa s elevated, but not to dangerous levels. It also appeared that your blood press ure dropped more than expected with standing. IV fluids and a headache cocktail were given with improvement in your symptoms. It is important to drink plenty of fluids and take your blood pressure medications at the same time every day. Follow up with your primary care provider this week to follow up on your blood p ressure management. Return to the ED if you have worsening symptoms, pass out, develop chest pain or shortness of breath, or have any other new concerning emergent issues. * Attachments The following attachments cannot be sent through Care Everywhere.* HEADACHE, UNSPECIFIED ([place]) documented in this encounter ED Notes * Nae Earl RN - 07/30/2015 4:05 PM [employer]JACK SUPERVIS[employer] Pt dc'd to home, verbalizes understanding of dc instructions. KJACK SUPERVISOR * Nae Eral RN - 07/30/2015 3:40 PM [employer] SUPERVISOR Pt reports relief of headache. Magnesium continuing to infuse. KJACK SUPERVISOR * Nae Earl RN - 07/30/2015 3:09 PM [employer] SUPERVISOR Medications given as ordered. Pt currently rates headache 09/26. [employer] SUPERVISOR * Merline Gusman RN - 07/30/2015 1:54 PM [employer] SUPERVIS[employer] Pt to ED via POV with c/o headache and dizziness. Pt reports headache started ye sterday. Reports history of HTN. Pt takes metoprolol. Reports she took her BP at home this morning and it was 200/100's. States she took her metoprolol shortly after. Reports she was still feeling dizzy and c/o posterior headache so she dec ided to come in to the ED. Pt accompanied by her friend. Pt a/o x4. Pt c/o dizzi ness when walking to her ED bed. Report to KAILE Soni. KJACK SUPERVISOR * Nelson Rooney DO - 07/30/2015 1:44 PM BLACKJ[employer] SUPERVISOR Diannicki Baez is a 50 y.o. female. Chief Complaint: Chief Complaint Patient presents with Headache BP 200/110 this a.m. Hx of htn. on metoprolol. Dizziness, nausea. History of Present Illness: HPI Comments: Dian Baez is a 50 y.o. F with a PMH of HTN, HLD, DM, CAD, fibromy algia, depression, anxiety, heart murmur who presents to the ED with headache si nce this morning and loss of vision. Loss of vision described as transient blur ry vision and difficulty focusing, acompanied by headaches, lightheadedness. Rajiv parkinson is accompanied by sister who assists in history. Patient reports frontal, pressure headache since yesterday and gradually worsened today. She states her b lood pressure was 200/100 this morning when measured. She reports experiencing h eadaches like this in the past with elevated blood pressure. She state taking he r 100mg metoprolol this morning and denies missed doses or medication changes re cently. Patient reports lightheadedness with standing and was orthostatic in tri age. She denies appetite change, vomiting or urinary symptoms, CP, SOA dizziness or syncope. She reports half-way tobacco use prior to quitting 5 months ago. History provided by: Patient and relative Review of Systems: Review of Systems Constitutional: Negative for fever and chills. HENT: Negative for congestion and sore throat. Eyes: Positive for visual disturbance. Negative for pain and redness. Respiratory: Negative for cough and shortness of breath. Cardiovascular: Negative for chest pain and palpitations. Gastrointestinal: Positive for nausea. Negative for vomiting, abdominal pain, di arrhea and constipation. Genitourinary: Negative for dysuria and flank pain. Musculoskeletal: Negative for myalgias, back pain and neck pain. Skin: Negative for rash and wound. Neurological: Positive for dizziness (without vertigo), light-headedness and hea daches. Negative for weakness and numbness. Hematological: Does not bruise/bleed easily. Psychiatric/Behavioral: Negative for confusion and decreased concentration. All other systems reviewed and are negative. Allergies: Hydrocodone Past Medical History: Past Medical History Diagnosis Date Hypertension DM (diabetes mellitus) Coronary artery disease Hyperlipidemia Past Surgical History: Past Surgical History Procedure Laterality Date Hx heart catheterization Hx hysterectomy Hx appendectomy Pertinent medical/surgical history reviewed Past Medical History Diagnosis Date Hypertension DM (diabetes mellitus) Coronary artery disease Hyperlipidemia Past Surgical History Procedure Laterality Date Hx heart catheterization Hx hysterectomy Hx appendectomy Social History: History Substance Use Topics Smoking status: Former Smoker Smokeless tobacco: Not on file Alcohol Use: Yes Comment: rare History Drug Use Yes Special: Marijuana Family History: No family history on file. Vitals: ED Vitals Date and Time T BP P RR SPO2P SPO2 [facility] 07/30/15 1600 -- 172/86 mmHg 66 20 PER MINUTE -- 97 % WW 07/30/15 1416 -- 144/85 mmHg -- -- 72 99 % 07/30/15 1414 -- (!) 163/96 mmHg -- -- 66 100 % 07/30/15 1412 -- 183/82 mmHg -- -- 63 98 % 07/30/15 1304 -- 138/89 mmHg -- -- 75 -- JK 07/30/15 1259 36.5 C (97.7 F) 178/88 mmHg -- 20 PER MINUTE 66 98 % JK Physical Exam: Physical Exam Constitutional: She is oriented to person, place, and time. She appears well-dev eloped and well-nourished. No distress. HENT: Head: Normocephalic and atraumatic. Right Ear: External ear normal. Left Ear: External ear normal. Nose: Nose normal. Mouth/Throat: Oropharynx is clear and moist. No oropharyngeal exudate. Eyes: Conjunctivae and EOM are normal. Pupils are equal, round, and reactive to light. Right eye exhibits no discharge. Left eye exhibits no discharge. No scler al icterus. No visual field deficit on individual testing Neck: Neck supple. No tracheal deviation present. No thyromegaly present. Cardiovascular: Normal rate, regular rhythm, normal heart sounds and intact dist al pulses. Pulmonary/Chest: Effort normal. No stridor. No respiratory distress. She has no wheezes. She has rales (few to bilateral lower lung jeffers) in the right lower f ield and the left lower field. Abdominal: Soft. Bowel sounds are normal. She exhibits no distension. There is n o tenderness. There is no rebound and no guarding. Musculoskeletal: Normal range of motion. She exhibits no edema or tenderness. Lymphadenopathy: She has no cervical adenopathy. Neurological: She is alert and oriented to person, place, and time. Gait steady. Strength and sensation grossly intact. Skin: Skin is warm and dry. No rash noted. She is not diaphoretic. No erythema. Psychiatric: She has a normal mood and affect. Her behavior is normal. Nursing note and vitals reviewed. Laboratory Results: Results for orders placed or performed during the hospital encounter of 07/30/15 (from the past 24 hour(s)) CBC AND DIFF Result Value Ref Range White Blood Cells 8.1 4.5 - 11.0 K/UL RBC 4.52 4.0 - 5.0 M/UL Hemoglobin 12.8 12.0 - 15.0 GM/DL Hematocrit 39.5 36 - 45 % MCV 87.3 80 - 100 FL MCH 28.2 26 - 34 PG MCHC 32.3 32.0 - 36.0 G/DL RDW 12.5 11 - 15 % Platelet Count 260 150 - 400 K/UL MPV 8.9 7 - 11 FL Neutrophils 48 41 - 77 % Lymphocytes 45 (H) 24 - 44 % Monocytes 4 4 - 12 % Eosinophils 2 0 - 5 % Basophils 1 0 - 2 % Absolute Neutrophil Count 3.90 1.8 - 7.0 K/UL Absolute Lymph Count 3.60 1.0 - 4.8 K/UL Absolute Monocyte Count 0.30 0 - 0.80 K/UL Absolute Eosinophil Count 0.20 0 - 0.45 K/UL Absolute Basophil Count 0.10 0 - 0.20 K/UL COMPREHENSIVE METABOLIC PANEL Result Value Ref Range Sodium 139 137 - 147 MMOL/L Potassium 4.0 3.5 - 5.1 MMOL/L Chloride 103 98 - 110 MMOL/L Glucose 108 (H) 70 - 100 MG/DL Blood Urea Nitrogen 13 7 - 25 MG/DL Creatinine 0.81 0.4 - 1.00 MG/DL Calcium 10.7 (H) 8.6 - 10.3 MG/DL Total Protein 8.0 6.0 - 8.0 G/DL Total Bilirubin 0.5 0.3 - 1.2 MG/DL Albumin 4.8 3.5 - 5.0 G/DL Alk Phosphatase 75 25 - 110 U/L AST (SGOT) 19 7 - 40 U/L CO2 28 21 - 30 MMOL/L ALT (SGPT) 16 7 - 56 U/L Anion Gap 8 3 - 12 eGFR Non >60 >60 mL/min eGFR >60 >60 mL/min TROPONIN-I Result Value Ref Range Troponin-I <0.01 0.0 - 0.05 NG/ML Radiology Interpretation: n/a EKLead, no st elevation, normal rate, sinus rhythm ED Course: Patient seen and evaluated by resident and attending physician. Initial concern for orthostatic positive vitals, in setting of likely poorly con trolled HTN. Symptoms correlate with position changes per patient. Visual acuity 20/20 near, 20/30 R, 20/25 L. Orthostatic vitals repeated, systolic crops fro 183 lying to 144 standing. CBC, CMP, EKG, troponin, NS bolus, headache cocktail ordered. EKG, troponin without acute abnormality. Labs without acute findings. Discussed with patient, encouraged adequate PO fluid intake and follow up with [facility] care provider regarding BP medication management. Advised to rise slowly and give herself time to adjust before ambulating. Pt discharged with follow up to primary care. Return precautions discussed. MDM Reviewed: vitals and nursing note Interpretation: labs and ECG Facility Administered Meds: Facility-Administered Medications as of 07/30/2015 Medication Last Dose [COMPLETED] acetaminophen (TYLENOL) tablet 650 mg 650 mg at 07/30/15 1456 [COMPLETED] diphenhydrAMINE (BENADRYL) injection 25 mg 25 mg at 07/30/15 145 8 [COMPLETED] magnesium sulfate 1 g/D5W 100 mL IVPB Stopped at 07/30/15 1603 [COMPLETED] metoclopramide HCl (REGLAN) injection 10 mg 10 mg at 07/30/15 15 00 [COMPLETED] sodium chloride 0.9 % infusion Stopped at 07/30/15 1530 Clinical Impression: Final diagnoses: Headache, unspecified headache type (Primary) Lightheadedness Disposition/Follow up Lachelle Donohue PA-C [address] [place] [address] existing appointment this week. Emergency Dept. [address] [place] [address]. [facility] [address] As needed, If symptoms worsen Medications: There are no discharge medications for this patient. Procedure Notes: Procedures Resident Supervision: I have seen and examined the patient and the above documentation is as I have di ctated it to the scribe. Edgardo Ordoñez MD ATTESTATION I personally observed the resident performing the E/M, discussed case with resid ent, and concur with resident documentation of history, physical assessment and treatment plan unless otherwise noted. Staff name: Nelson Rooney DO Date: 08/01/2015 [employer]JACK SUPERVISOR documented in this encounter Plan of Treatment Not on filedocumented as of this encounter Procedures Comments Procedure Name Priority Date/Time Associated Diagnosis PROCEDURES-SCAN 07/31/2015 1:48 PM BLACKJACK SUPERVISOR PROCEDURES-SCAN 07/31/2015 6:53 AM BLACKJACK SUPERVISOR ECG 12-LEAD STAT 07/30/2015 1:53 PM BLACKJACK SUPERVISOR TROPONIN-I Add on 07/30/2015 1:45 PM BLACKJACK SUPERVISOR CBC AND DIFF STAT 07/30/2015 1:45 PM BLACKJACK SUPERVISOR COMPREHENSIVE METABOLIC STAT 07/30/2015 PANEL 1:45 PM BLACKJACK SUPERVISOR documented in this encounter Results * TROPONIN-I (07/30/2015 1:45 PM BLACKJACK SUPERVISOR) [facility] Troponin-I <0.01 0.0 - 0.05 NG/ML [facility] Specimen Performing Organization Address City/State/Zipcode Phone Number [facility] [address] [place] [address] * COMPREHENSIVE METABOLIC PANEL (07/30/2015 1:45 PM BLACKJACK SUPERVISOR) [facility] Sodium 139 137 - 147 MMOL/L [facility] Potassium 4.0 3.5 - 5.1 MMOL/L [facility] Chloride 103 98 - 110 MMOL/L [facility] Glucose 108 (H) 70 - 100 MG/DL [facility] Blood Urea 13 7 - 25 MG/DL [facility] Nitrogen Creatinine 0.81 0.4 - 1.00 MG/DL [facility] Calcium 10.7 (H) 8.6 - 10.3 MG/DL [facility] Total Protein 8.0 6.0 - 8.0 G/DL [facility] Total Bilirubin 0.5 0.3 - 1.2 MG/DL [facility] Albumin 4.8 3.5 - 5.0 G/DL [facility] Alk Phosphatase 75 25 - 110 U/L [facility] AST (SGOT) 19 7 - 40 U/L [facility] CO2 28 21 - 30 MMOL/L [facility] ALT (SGPT) 16 7 - 56 U/L [facility] Anion Gap 8 3 - 12 [facility] eGFR Non >60 >60 mL/min [facility] Comment: Samoan The eGFR is not validated for use in drug dosing adjustments.Continue to use estimated creatinine clearance per dosing reference text.Please contact the Clinical Pharmacist for questions. eGFR >60 >60 mL/min [facility] Samoan Comment: The eGFR is not validated for use in drug dosing adjustments.Continue to use estimated creatinine clearance per dosing reference text.Please contact the Clinical Pharmacist for questions. Specimen Blood Performing Organization Address City/[facility]/Zipcode Phone Number [facility] [address] [place] [address] * CBC AND DIFF (07/30/2015 1:45 PM BLACKJACK SUPERVISOR) White Blood 8.1 4.5 - 11.0 K/UL [facility] Cells RBC 4.52 4.0 - 5.0 M/UL [facility] Hemoglobin 12.8 12.0 - 15.0 GM/DL [facility] Hematocrit 39.5 36 - 45 % [facility] MCV 87.3 80 - 100 FL [facility] MCH 28.2 26 - 34 PG [facility] MCHC 32.3 32.0 - 36.0 G/DL [facility] RDW 12.5 11 - 15 % [facility] Platelet Count 260 150 - 400 K/UL [facility] MPV 8.9 7 - 11 FL [facility] Neutrophils 48 41 - 77 % [facility] Lymphocytes 45 (H) 24 - 44 % [facility] Monocytes 4 4 - 12 % [facility] Eosinophils 2 0 - 5 % [facility] Basophils 1 0 - 2 % [facility] Absolute 3.90 1.8 - 7.0 K/UL [facility] Neutrophil Count Absolute Lymph 3.60 1.0 - 4.8 K/UL [facility] Count Absolute 0.30 0 - 0.80 K/UL [facility] Monocyte Count Absolute 0.20 0 - 0.45 K/UL [facility] Eosinophil Count Absolute 0.10 0 - 0.20 K/UL [facility] Basophil Count Specimen Blood Performing Organization Address City/[facility]/Zipcode Phone Number [facility] [address] [place] [address] documented in this encounter Visit Diagnoses Diagnosis Headache, unspecified headache type - Primary Lightheadedness Dizziness and giddiness Facial pain Headache Dizziness and giddiness Diabetes mellitus without complication (HCC) Type II or unspecified type diabetes mellitus without mention of complication, not stated as uncontrolled Hyperlipidemia, unspecified hyperlipidemia Nausea Nausea alone documented in this encounter Administered Medications Action Date Dose Rate Site Medication Order MAR Action 07/30/2015 2:56 PM BLACKJACK SUPERVISOR 650 mg acetaminophen (TYLENOL) tablet 650 mg Given 650 mg, Oral, ONCE, 1 dose, Thu07/30/15 at 1445, TOTAL ACETAMINOPHEN DOSE NOT TO EXCEED 4GM DAILY, 07/30/2015 2:58 PM BLACKJACK SUPERVISOR 25 mg diphenhydrAMINE (BENADRYL) injection 25 Given mg 25 mg, Intravenous, ONCE, 1 dose, Thu07/30/15 at 1445 07/30/2015 3:04 PM BLACKJACK SUPERVISOR 1 g 100 mL/hr magnesium sulfate 1 g/D5W 100 mL IVPB Given - New 1 g, Intravenous, 100 mL, Administer Bag over 1 Hours, ONCE, 1 dose, Thu07/30/15 at 1445, Each 1gm delivers 8.1 mEq Magnsium., 07/30/2015 3:00 PM BLACKJACK SUPERVISOR 10 mg metoclopramide HCl (REGLAN) injection 10 Given mg 10 mg, Intravenous, ONCE, 1 dose, Thu07/30/15 at 1445 07/30/2015 2:27 PM BLACKJACK SUPERVISOR 1,000 mL sodium chloride 0.9 % infusion Given - New 1,000 mL, 1,000 mL, Intravenous, BOLUS, Bag 1 dose, Thu07/30/15 at 1430 documented in this encounter
--- OUTSIDE RECORDS SUMMARY | 2019-02-01 09:01 | XMS REPORT ---
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 Name Role Phone Migration, Doctor Unavailable Unavailable PROBLEMS Type Condition ICD9-CM Code MLU09-NF Code Onset Dates Condition Status SNOMED Code Problem Unspecified hypertrophic and atrophic condition of skin 701.9 Active 730001024 Problem Solitary pulmonary nodule 793.11 Active 025776840 Problem Depressive disorder, not elsewhere classified 311 Active 80993542 Problem Coronary atherosclerosis of unspecified type of vessel, alutiiq or graft 414.00 Active 231544970 Problem Diabetic neuropathy 250.60 Active 540241137 Problem Hypomagnesemia 275.2 Active 542863167 Problem Cardiac murmur, unspecified R01.1 Active 165492958 Problem Type 2 diabetes mellitus without complication E11.9 Active 71518308 Problem Type 2 diabetes mellitus with hyperglycemia E11.65 Active 937505051133329 Problem Type 2 diabetes mellitus with diabetic neuropathy, unspecified E11.40 Active 2344702919420 Problem Restless legs syndrome G25.81 Active 01729379 Problem Lumbago with sciatica, left side M54.42 Active 149163466 Problem Pure hyperglyceridemia E78.1 Active 161710590 Problem Lumbago with sciatica, right side M54.41 Active 492015734303167 Problem Essential (primary) hypertension I10 Active 39307018 Problem Fibromyalgia M79.7 Active 747655790 Problem DM neuro manif type II E11.40 Active 713703951 Problem Essential hypertension I10 Active 88505093 Problem Chronic obstructive pulmonary disease, unspecified COPD type J44.9 Active 03975537 ALLERGIES No Information ENCOUNTERS Encounter Location Date Diagnosis [facility] [address] [place] [address] Nov, [facility] [address] [place] [address] Nov, Type 2 diabetes mellitus with hyperglycemia E11.65 ; Essential (primary) hypertension I10 and Restless legs syndrome G25.81 [facility] [address] [place] [address] Oct, Type 2 diabetes mellitus with hyperglycemia E11.65 [facility] [address] [place] [address] Sep, Restless legs syndrome G25.81 and Essential (primary) hypertension I10 [facility] [address] [place] [address] Sep, [facility] [address] [place] [address] Sep, Hospital discharge follow-up Z09 [facility] [address] [place] [address] Sep, [facility] [address] [place] [address] Aug, Essential (primary) hypertension I10 [facility] [address] [id number] [place] [id number] Aug, [facility] [address] [facility] [id number] [address] Aug, Restless legs syndrome G25.81 and Type 2 diabetes mellitus with hyperglycemia E11.65 [facility] [address] [place] [address] Aug, Abnormal CT scan, kidney R93.429 [facility] [address] [place] [address] Jul, [facility] [address] [place] [address] Jul, Restless legs syndrome G25.81 [facility] [address] [place] [address] Jul, [facility] [address] [place] [address] Jul, [facility] [address] [place] [address] Jun, Screening for breast cancer Z12.31 [facility] [address] [place] [address] 24 May, 2018 Essential (primary) hypertension I10 [facility] [address] [place] [address] May, Type 2 diabetes mellitus with hyperglycemia E11.65 and Restless legs syndrome G25.81 [facility] [address] [facility] [address] [place] [address] Apr, Lumbago with sciatica, left side M54.42 ; Lumbago with sciatica, right side M54.41 and Restless legs syndrome G25.81 [facility] [address] [place] [address] Mar, [facility] [address] [place] [address] Feb, Restless legs syndrome G25.81 and Fibromyalgia M79.7 [facility] [address] [place] [address] Feb, Essential hypertension I10 and Type 2 diabetes mellitus with hyperglycemia E11.65 [facility] [address] [facility] [address] [place] [address] Feb, Essential (primary) hypertension I10 and Exposure to hepatitis C Z20.5 [facility] [place] [address] [place] [address] Jan, [facility] [place] [address] [place] [address] Jan, [facility] [place] [address] [place] [address] Jan, [facility] [address] [place] [address] Jan, [facility] [address] [place] [address] Jan, [facility] [place] [address] [place] [address] Jan, [facility] [place] [address] [place] [address] December, Essential (primary) hypertension I10 [facility] [address] [place] [address] December, Restless legs syndrome G25.81 [facility] [place] [address] [place] [address] December, Restless legs syndrome G25.81 [facility] [place] [address] [place] [address] December, Restless legs syndrome G25.81 [facility] [address] [place] [address] December, Restless legs syndrome G25.81 [facility] [place] [address] [place] [address] Nov, [facility] [address] [place] [address] Nov, Type 2 diabetes mellitus with hyperglycemia E11.65 [facility] [address] [facility] [id number] [place] [address] Nov, Essential hypertension I10 [facility] [address] [place] [address] Oct, Restless legs syndrome G25.81 [facility] [address] [place] [address] Aug, Type 2 diabetes mellitus with hyperglycemia E11.65 ; Restless legs syndrome G25.81 ; Fibromyalgia M79.7 ; Essential hypertension I10 and Urinary urgency R39.15 [facility] [address] [place] [address] May, [facility] [address] [place] [address] May, Type 2 diabetes mellitus with hyperglycemia E11.65 [facility] [address] [place] [address] May, [facility] [place] [address] [place] [address] Apr, Type 2 diabetes mellitus with hyperglycemia E11.65 [facility] [place] [address] [place] [address] Apr, [facility] [address] [place] [address] Apr, Hospital discharge follow-up Z09 ; Cardiac murmur, unspecified R01.1 ; Tobacco abuse Z72.0 and Chronic obstructive pulmonary disease, unspecified COPD type J44.9 [facility] [address] [place] [address] Mar, Type 2 diabetes mellitus with hyperglycemia E11.65 [facility] [place] [address] [place] [address] Feb, Type 2 diabetes mellitus with hyperglycemia E11.65 and Essential hypertension I10 [facility] [address] [place] [address] Feb, Restless legs syndrome G25.81 ; Type 2 diabetes mellitus with hyperglycemia E11.65 ; Essential hypertension I10 and Right upper quadrant pain R10.11 [facility] [place] [address] [place] [address] Feb, [facility] [address] [place] [address] Feb, [facility] [address] [place] [address] Jan, Type 2 diabetes mellitus with hyperglycemia E11.65 and Right sided abdominal pain R10.9 [facility] [place] [address] [place] [address] Jan, [facility] [address] [place] [address] Jan, Nausea R11.0 ; Essential hypertension I10 and Dizziness R42 [facility] [place] [address] [place] [address] Jan, [facility] [address] [place] [address] Nov, [facility] [address] [place] [address] Nov, [facility] [address] [place] [address] Oct, [facility] [address] [place] [address] Oct, [facility] [address] [place] [address] Oct, [facility] [address] [place] [address] Sep, [facility] [address] [facility] [id number] [address] Sep, Ganglion of tendon M67.40 and DM neuro manif type II E11.40 [facility] [address] [place] [address] Aug, Pure hyperglyceridemia E78.1 [facility] [address] [place] [address] Aug, [facility] [address] [address] Aug, [facility] [address] [address] Aug, [facility] [address] [address] Aug, Fibromyalgia M79.7 [facility] [address] [address] Aug, [facility] [address] [address] Aug, Fibromyalgia M79.7 [facility] [address] [address] Aug, Fibromyalgia M79.7 ; Mass of right foot R22.41 and Type 2 diabetes mellitus with hyperglycemia E11.65 [facility] [address] [address] Jun, [facility] [address] [address] Jun, Furuncle L02.92 and Methicillin resistant Staph aureus culture positive Z22.[address] [address] Jun, Furuncle L02.92 ; Cellulitis of other specified site L03.818 and Methicillin resistant Staph aureus culture positive Z22.322 [facility] [address] [address] Jun, [facility] [address] [address] Jun, Furuncle L02.92 and Cellulitis of other specified site L03.818 [facility] [address] [address] May, Pure hyperglyceridemia E78.1 ; Abscess L02.91 ; Restless legs syndrome G25.81 and Type 2 diabetes mellitus with hyperglycemia E11.65 [facility] [address] [place] [address] May, [facility] [address] [address] May, [address] [address] May, [facility] [address] [address] 16 Apr, 2016 [facility] [address] [address] Mar, Well woman exam Z01.419 ; Encounter for screening mammogram for breast cancer Z12.31 and History of cervical cancer Z85.[address] [address] Mar, Insect bite, multiple W57.XXXA ; Type 2 diabetes mellitus with diabetic neuropathy, unspecified E11.40 ; Essential (primary) hypertension I10 ; DM neuro manif type II E11.40 and Restless legs syndrome G25.81 [facility] [address] [place] [address] Feb, [address] [address] Feb, [address] [address] Feb, [address] [address] Jan, [address] [address] Jan, [address] [address] Jan, Abscess L02.91 [facility] [address] [place] [address] December, DM neuro manif type II E11.40 ; Pure hyperglyceridemia E78.1 ; Essential (primary) hypertension I10 and Type 2 diabetes mellitus without complication E11.9 [facility] [address] [place] [address] Oct, [facility] [address] [place] [address] Sep, [facility] [address] [place] [address] Sep, [facility] [address] [place] [address] Sep, [facility] [address] [place] [address] Sep, Type 2 diabetes mellitus without complication E11.9 ; Pure hyperglyceridemia E78.1 ; Cardiac murmur, unspecified R01.1 and Essential (primary) hypertension I10 [facility] [address] [place] [address] Aug, [facility] [address] [place] [address] Jul, [facility] [address] [place] [address] Jul, [facility] [address] [place] [address] Jun, [facility] [address] [place] [address] Jun, [facility] [address] [place] [address] May, [facility] [address] [place] [address] May, [facility] [address] [place] [address] May, [facility] [address] [place] [address] May, [facility] [address] [place] [address] May, [facility] [address] [place] [address] May, [facility] [address] 29 Apr, 2015 Onychomycosis [address] [address] 15 Apr, [address] [address] 14 Apr, 2015 Nail dystrophy 703.[address] [address] 08 Apr, 2015 Ingrown nail 703.[address] [address] 04 Apr, 2015 Ingrown nail 703.[address] [address] Mar, [address] [address] Mar, Diabetic neuropathy 250.60 ; Fibromyalgia 729.1 and Lumbago 724.[address] [address] Mar, [address] [address] Jan, Diabetes mellitus without mention of complication, type II or unspecified type, uncontrolled 250.02 and Hypomagnesemia 275.[address] [address] Jan, [address] [address] Jan, Coronary atherosclerosis of unspecified type of vessel, alutiiq or graft 414.00 ; Essential hypertension, benign 401.1 ; Other and unspecified hyperlipidemia 272.4 ; Diabetes mellitus without mention of complication, type II or unspecified type, uncontrolled 250.02 ; Depressive disorder, not elsewhere classified 311 and Restless legs syndrome [RLS] 333.[address] [address] Jan, [address] [address] December, Sciatica 724.3 ; Muscle spasm 728.85 ; UTI (urinary tract infection) 599.0 and Dysuria 788.1 [facility] [place] [address] [place] [address] December, [facility] [place] [address] [place] [address] December, Scabies 133.0 and Leg pain 729.5 [facility] [address] [address] Nov, [facility] [address] [place] [address] Nov, [facility] [place] [address] [place] [address] Aug, [facility] [address] [place] [address] Aug, [facility] [place] [address] [place] [address] Jul, [facility] [address], [place] [address] Jul, [facility] [place] [address] [place] [address] Jul, [facility] [address], [place] [address] Jul, [facility] [address] [place] [address] Jul, [facility] [address], [place] [address] Jul, [facility] [place] [address] [place] [address] Jun, [facility] [address], [place] [address] Jun, [facility] [place] [address] [place] [address] Jun, [facility] [address], [place] [address] Jun, [facility] [place] [address] [place] [address] May, 2013 [facility] [id number] [address] May, 2013 [facility] [place] [facility] [id number], [place] [address] 29 Apr, 2013 [facility] [id number], [place] [address] 29 Apr, 2013 [facility] [place] [address] [place] [address] Apr, 2013 [facility] [id number] [place] [address] 25 Apr, 2013 [facility] [place] [address] [place] [address] Apr, 2013 [facility] [address] [place] [address] Apr, 2013 [facility] [place] [facility] [id number] [address] 19 Apr, 2013 [facility] [place] [address] [place] [address] 18 Apr, 2013 [facility] [place] [facility] [id number], [place] [address] 18 Apr, 2013 [facility] [place] [address] [place] [address] 12 Apr, 2013 [facility] [place] [facility] [id number] [address] 12 Apr, 2013 [facility] [place] [facility] [id number], [place] [address] 10 Apr, 2013 [facility] [place] [address] [place] [address] 08 Apr, 2013 [facility] [place] [address] [place] [address] 08 Apr, 2013 [facility] [id number], [place] [address] Apr, [facility] [address], [place] [address] Apr, [facility] [place] [address] [place] [address] Mar, [facility] [address], [place] [address] Mar, [facility] [place] [address] [place] [address] Mar, [facility] [address], [place] [address] Mar, [facility] [place] [address] [place] [address] Feb, [facility] [address], [place] [address] Feb, [facility] [place] [address] [place] [address] December, [facility] [address], [place] [address] December, [facility] [place] [address] [place] [address] December, [facility] [address], [place] [address] December, [facility] [place] [address] [place] [address] Nov, [facility] [address], [place] [address] Nov, [facility] [place] [address] [place] [address] Nov, [facility] [address] [address] Nov, [facility] [place] [address] [place] [address] Nov, [facility] [address], [place] [address] Nov, [facility] [place] [facility] [address] [facility] [id number], [place] [address] Oct, [facility] [place] [facility] [address] [facility] [id number][place] [address] Oct, [facility] [place] [facility] [address] [facility] [id number], [place] [address] Aug, [facility] [place] [facility] [address] [facility] [id number], [place] [address] Aug, [facility] [place] [address] [place] [address] Aug, [facility] [id number], [place] [address] Aug, [facility] [address], [place] [address] Aug, [facility] [place] [facility] [id number], [place] [address] Aug, [facility] [place] [address] [place] [address] Jul, [facility] [id number], [place] [address] Jul, [facility] [place] [facility] [id number], [place] [address] Jul, [facility] [place] [facility] [address] [facility] [id number], [place] [address] Jul, [facility] [place] [facility] [address] [facility] [id number][place] [address] Jun, [facility] [place] [facility] [address] [facility] [id number][place] [address] Jun, [facility] [place] [facility] [address] [facility] [id number], [place] [address] Jun, [facility] [place] [facility] [address] [facility] [id number], [place] [address] 08 Jun, 2013 [facility] [place] [facility] [address] [id number] [place] [address] 08 Jun, 2013 [facility] [place] [facility] [address] [id number][place] [address] 07 Jun, 2013 [facility] [place] [facility] [address] [facility] [id number] [place] [address] 07 Jun, 2013 [facility] [place] [facility] [address] [id number], [place] [address] 06 Jun, 2013 [facility] [place] [facility] [address] [facility] [id number] [place] [address] Jun, [facility] [place] [facility] [address] [facility] [id number] [place] [address] May, [facility] [place] [facility] [address] [facility] [id number], [place] [address] 18 May, 2013 [facility] [place] [facility] [address] [id number] [address] May, [facility] [place] [facility] [address] [facility] [id number], [place] [address] 16 May, 2013 [facility] [place] [facility] [address] [facility] [id number] [address] 14 May, 2013 [facility] [place] [facility] [address] [facility] [id number][place] [address] 14 May, 2013 [facility] [place] [facility] [address] [facility] [id number], [place] [address] May, [facility] [place] [facility] [address] [facility] [id number][place] [address] Apr, [facility] [place] [facility] [address] [facility] [id number] [address] Mar, [facility] [place] [facility] [address] [facility] [id number], [place] [address] Mar, [facility] [place] [facility] [id number], [place] [address] Mar, [facility] [id number], [place] [address] Mar, [facility] [address] [facility] [id number], [place] [address] Feb, [facility] [id number] [address] Feb, [facility] [address] [facility] [id number], [place] [address] Feb, [facility] [address], [place] [address] Feb, [facility] [address], [place] [address] Feb, [facility] [address], [place] [address] Feb, [facility] [id number], [place] [address] Jan, [facility] [id number], [place] [address] Jan, [facility] [id number] [address] Jan, [facility] [id number] [address] Jan, IMMUNIZATIONS No Known Immunizations SOCIAL HISTORY Never Assessed REASON FOR VISIT [facility] PLAN OF CARE VITAL SIGNS MEDICATIONS Unknown Medications RESULTS No Results PROCEDURES No Known procedures INSTRUCTIONS MEDICATIONS ADMINISTERED No Known Medications MEDICAL (GENERAL) HISTORY Type Description Date Medical History Atherosclerotic heart disease of alutiiq coronary artery without angina pectoris Medical History Hidradenitis suppurativa Medical History Pure hyperglyceridemia Medical History Essential (primary) hypertension Medical History Type 2 diabetes mellitus with hyperglycemia Medical History Restless legs syndrome Medical History Major depressive disorder, single episode, unspecified Medical History Cardiac murmur, unspecified Medical History DM neuro manif type II Medical History neurapathy Surgical History hysterectomy Surgical History appendectomy Surgical History heart cath Surgical History nausea/ dehydration 07/2018 Hospitalization History Child Hospitalization History Surgery Hospitalization History IBS x 3months Hospitalization History sepsis 04/2017
--- OUTSIDE RECORDS SUMMARY | 2019-02-01 09:02 | XMS REPORT ---
Author Author Migration, Doctor Organization [facility] Address Unknown Phone Unavailable Care Team Providers Care Bi Tri Operator Name Role Phone Migration, Doctor Unavailable Unavailable PROBLEMS Type Condition ICD9-CM Code NPU39-XY Code Onset Dates Condition Status SNOMED Code Problem Unspecified hypertrophic and atrophic condition of skin 701.9 Active 780577705 Problem Solitary pulmonary nodule 793.11 Active 034016285 Problem Depressive disorder, not elsewhere classified 311 Active 48395892 Problem Coronary atherosclerosis of unspecified type of vessel, tanana or graft 414.00 Active 882007131 Problem Diabetic neuropathy 250.60 Active 738033280 Problem Hypomagnesemia 275.2 Active 071455563 Problem Cardiac murmur, unspecified R01.1 Active 103371067 Problem Type 2 diabetes mellitus without complication E11.9 Active 19235560 Problem Type 2 diabetes mellitus with hyperglycemia E11.65 Active 454737150235801 Problem Type 2 diabetes mellitus with diabetic neuropathy, unspecified E11.40 Active 6135468160535 Problem Restless legs syndrome G25.81 Active 87466430 Problem Lumbago with sciatica, left side M54.42 Active 844211722 Problem Pure hyperglyceridemia E78.1 Active 762143440 Problem Lumbago with sciatica, right side M54.41 Active 564747313784354 Problem Essential (primary) hypertension I10 Active 31168492 Problem Fibromyalgia M79.7 Active 311209726 Problem DM neuro manif type II E11.40 Active 514140781 Problem Essential hypertension I10 Active 44519435 Problem Chronic obstructive pulmonary disease, unspecified COPD type J44.9 Active 31092550 ALLERGIES No Information ENCOUNTERS Encounter Location Date Diagnosis [facility] [address] [facility] [place] [address] Oct, Type 2 diabetes mellitus with hyperglycemia E11.65 [facility] [address] [place] [address] 28 Sep, 2018 Restless legs syndrome G25.81 and Essential (primary) hypertension I10 [facility] [address] [place] [address] Sep, [facility] [address] [place] [address] Sep, Hospital discharge follow-up Z09 [facility] [address] [place] [address] 18 Sep, 2018 [facility] [address] [place] [address] Aug, Essential (primary) hypertension I10 [facility] [id number] [place] [id number] Aug, [facility] [address] [facility] [id number] [address] Aug, Restless legs syndrome G25.81 and Type 2 diabetes mellitus with hyperglycemia E11.65 [facility] [address] [place] [address] Aug, Abnormal CT scan, kidney R93.429 [facility] [address] [place] [address] Jul, [facility] [address] [place] [address] Jul, Restless legs syndrome G25.81 [facility] [address] [place] [address] 05 Jul, 2018 [facility] [address] [place] [address] Jul, [facility] [address] [place] [address] Jun, Screening for breast cancer Z12.31 [facility] [address] [address] May, Essential (primary) hypertension I10 [facility] [address] [place] [address] May, Type 2 diabetes mellitus with hyperglycemia E11.65 and Restless legs syndrome G25.81 [facility] [address] [place] [address] Apr, Lumbago with sciatica, left side M54.42 ; Lumbago with sciatica, right side M54.41 and Restless legs syndrome G25.81 [facility] [address] [place] [address] [place] [address] Mar, [facility] [address] [place] [address] [place] [address] Feb, Restless legs syndrome G25.81 and Fibromyalgia M79.7 [facility] [address] [place] [address] [place] [address] Feb, Essential hypertension I10 and Type 2 diabetes mellitus with hyperglycemia E11.65 [facility] [address] [place] [address] [place] [address] Feb, Essential (primary) hypertension I10 and Exposure to hepatitis C Z20.5 [facility] [address] [place] [address] Jan, [facility] [place] [address] [place] [address] Jan, [facility] [place] [address] [place] [address] Jan, [facility] [place] [address] [place] [address] Jan, [facility] [place] [address] [place] [address] Jan, [facility] [place] [address] [place] [address] Jan, [facility] [place] [address] [place] [address] December, Essential (primary) hypertension I10 [facility] [place] [address] [place] [address] December, Restless legs syndrome G25.81 [facility] [place] [address] [place] [address] December, Restless legs syndrome G25.81 [facility] [place] [address] [place] [address] December, Restless legs syndrome G25.81 [facility] [place] [address] [place] [address] December, Restless legs syndrome G25.81 [facility] [place] [address] [place] [address] Nov, [facility] [place] [address] [place] [address] Nov, Type 2 diabetes mellitus with hyperglycemia E11.65 [facility] [address] [facility] [id number] [place] [address] 16 Nov, 2017 Essential hypertension I10 [facility] [place] [address] [place] [address] Oct, Restless legs syndrome G25.81 [facility] [place] [address] [place] [address] Aug, Type 2 diabetes mellitus with hyperglycemia E11.65 ; Restless legs syndrome G25.81 ; Fibromyalgia M79.7 ; Essential hypertension I10 and Urinary urgency R39.15 [facility] [place] [address] [place] [address] May, [facility] [address] [address] May, Type 2 diabetes mellitus with hyperglycemia E11.65 [facility] [address] [place] [address] May, [facility] [address] [address] Apr, Type 2 diabetes mellitus with hyperglycemia E11.65 [facility] [address] [place] [address] Apr, [facility] [address] [address] Apr, Hospital discharge follow-up Z09 ; Cardiac murmur, unspecified R01.1 ; Tobacco abuse Z72.0 and Chronic obstructive pulmonary disease, unspecified COPD type J44.9 [facility] [place] [address] [place] [address] Mar, Type 2 diabetes mellitus with hyperglycemia E11.65 [facility] [place] [address] [place] [address] Feb, Type 2 diabetes mellitus with hyperglycemia E11.65 and Essential hypertension I10 [facility] [place] [address] [place] [address] Feb, Restless legs syndrome G25.81 ; Type 2 diabetes mellitus with hyperglycemia E11.65 ; Essential hypertension I10 and Right upper quadrant pain R10.11 [facility] [place] [address] [place] [address] Feb, [facility] [place] [address] [place] [address] Feb, [facility] [place] [address] [place] [address] Jan, Type 2 diabetes mellitus with hyperglycemia E11.65 and Right sided abdominal pain R10.9 [facility] [place] [address] [place] [address] Jan, [facility] [place] [address] [place] [address] Jan, Nausea R11.0 ; Essential hypertension I10 and Dizziness R42 [facility] [place] [address] [place] [address] Jan, [facility] [place] [address] [place] [address] Nov, [facility] [place] [address] [place] [address] Nov, [facility] [place] [address] [place] [address] Oct, [facility] [place] [address] [place] [address] Oct, [facility] [place] [address] [place] [address] Oct, [facility] [place] [address] [place] [address] Sep, [facility] [address] [facility] [id number] [place] [address] Sep, Ganglion of tendon M67.40 and DM neuro manif type II E11.40 [facility] [place] [address] [place] [address] Aug, Pure hyperglyceridemia E78.1 [facility] [place] [address] [place] [address] Aug, [facility] [place] [address] [place] [address] Aug, nancyLORENA [place] [address] [place] [address] Aug, Jhonatan [place] [address] [place] [address] Aug, Fibromyalgia M79.7 n[facility]LORENA [place] [address] [place] [address] Aug, Jhonatan [place] [address] [place] [address] 03 Aug, 2016 Fibromyalgia M79.7 [facility] [place] [address] [place] [address] 03 Aug, 2016 Fibromyalgia M79.7 ; Mass of right foot R22.41 and Type 2 diabetes mellitus with hyperglycemia E11.65 [facility] [place] [address] [place] [address] Jun, [facility] [address] [address] Jun, Furuncle L02.92 and Methicillin resistant Staph aureus culture positive Z22.322 [facility] [address] [address] Jun, Furuncle L02.92 ; Cellulitis of other specified site L03.818 and Methicillin resistant Staph aureus culture positive Z22.322 [facility] [place] [address] [place] [address] Jun, [facility] [place] [address] [place] [address] Jun, Furuncle L02.92 and Cellulitis of other specified site L03.818 [facility] [address] [address] May, Pure hyperglyceridemia E78.1 ; Abscess L02.91 ; Restless legs syndrome G25.81 and Type 2 diabetes mellitus with hyperglycemia E11.65 [facility] [place] [address] [place] [address] May, zJhonatan [place] [address] [place] [address] 18 May, 2016 [facility] [place] [address] [place] [address] May, Jhonatan [place] [address] [place] [address] Apr, [facility] [place] [address] [place] [address] Mar, Well woman exam Z01.419 ; Encounter for screening mammogram for breast cancer Z12.31 and History of cervical cancer Z85.41 [facility] [place] [address] [place] [address] Mar, Insect bite, multiple W57.XXXA ; Type 2 diabetes mellitus with diabetic neuropathy, unspecified E11.40 ; Essential (primary) hypertension I10 ; DM neuro manif type II E11.40 and Restless legs syndrome G25.81 K[facility] [place] [address] [place] [address] Feb, [facility] [place] [address] [place] [address] Feb, [facility] [place] [address] [place] [address] Feb, [facility] [place] [address] [place] [address] Jan, [facility] [place] [address] [place] [address] Jan, [facility] [place] [address] [place] [address] Jan, Abscess L02.91 [facility] [place] [address] [place] [address] December, DM neuro manif type II E11.40 ; Pure hyperglyceridemia E78.1 ; Essential (primary) hypertension I10 and Type 2 diabetes mellitus without complication E11.9 [facility] [place] [address] [place] [address] Oct, [facility] [place] [address] [place] [address] Sep, [facility] [place] [address] [place] [address] Sep, [facility] [place] [address] [place] [address] Sep, [facility] [place] [address] [place] [address] Sep, Type 2 diabetes mellitus without complication E11.9 ; Pure hyperglyceridemia E78.1 ; Cardiac murmur, unspecified R01.1 and Essential (primary) hypertension I10 [facility] [place] [address] [place] [address] Aug, [facility] [place] [address] [place] [address] Jul, [facility] [place] [address] [place] [address] Jul, [facility] [place] [address] [place] [address] Jun, [facility] [place] [address] [place] [address] Jun, [facility] [place] [address] [place] [address] May, [facility] [place] [address] [place] [address] May, [facility] [place] [address] [place] [address] May, [facility] [place] [address] [place] [address] May, [facility] [place] [address] [place] [address] May, [facility] [place] [address] [place] [address] May, [facility] [place] [address] [place] [address] Apr, Onychomycosis 110.1 [facility] [place] [address] [place] [address] 15 Apr, 2015 [facility] [place] [address] [place] [address] 14 Apr, 2015 Nail dystrophy 703.8 [facility] [address] [place] [address] 08 Apr, 2015 Ingrown nail 703.[address] [address] Apr, Ingrown nail 703.[address] [address] Mar, [address] [address] Mar, Diabetic neuropathy 250.60 ; Fibromyalgia 729.1 and Lumbago 724.[address] [address] Mar, [address] [address] Jan, Diabetes mellitus without mention of complication, type II or unspecified type, uncontrolled 250.02 and Hypomagnesemia 275.[address] [address] Jan, [address] [address] Jan, Coronary atherosclerosis of unspecified type of vessel, tanana or graft 414.00 ; Essential hypertension, benign 401.1 ; Other and unspecified hyperlipidemia 272.4 ; Diabetes mellitus without mention of complication, type II or unspecified type, uncontrolled 250.02 ; Depressive disorder, not elsewhere classified 311 and Restless legs syndrome [RLS] 333.[address] [address] Jan, [address] [address] December, Sciatica 724.3 ; Muscle spasm 728.85 ; UTI (urinary tract infection) 599.0 and Dysuria 788.[address] [address] December, [address] [address] December, Scabies 133.0 and Leg pain 729.5 [facility] [place] [facility] [address] [address] Nov, [facility] [address] [address] Nov, [facility] [place] [address] [place] [address] Aug, [facility] [address] [place] [id number] [place] [address] Aug, [facility] [place] [address] [place] [address] Jul, [facility] [id number] [place] [address] Jul, [facility] [place] [address] [place] [address] Jul, [facility] [id number] [place] [address] Jul, [facility] [place] [address] [place] [address] Jul, [facility] [id number] [place] [address] Jul, [facility] [place] [address] [place] [address] Jun, [facility] [address] [address] Jun, [facility] [place] [address] [place] [address] Jun, [facility] [address] [address] Jun, [facility] [place] [address] [place] [address] May, [facility] [address] [address] May, [facility] [address] [address] Apr, 2013 [facility] [address] [facility] [id number] [address] 29 Apr, 2013 [facility] [place] [address] [place] [address] Apr, 2013 [facility] [id number] [address] Apr, 2013 [facility] [place] [address] [place] [address] Apr, 2013 [facility] [id number] [address] Apr, 2013 [facility] [id number] [address] Apr, 2013 [facility] [place] [address] [place] [address] Apr, 2013 [facility] [id number] [address] Apr, 2013 [facility] [place] [address] [place] [address] Apr, 2013 [facility] [id number] [address] Apr, 2013 [facility] [address] [id number] [address] Apr, 2013 [facility] [place] [address] [place] [address] 08 Apr, 2013 [facility] [place] [address] [place] [address] 08 Apr, 2013 [facility] [address] [id number] [address] Apr, 2013 [facility] [place] [facility] [address] [id number] [address] 08 Apr, 2013 [facility] [place] [address] [place] [address] Mar, [facility] [place] [facility] [id number] [address] Mar, [facility] [place] [address] [place] [address] Mar, [facility] [id number] [address] Mar, [facility] [place] [address] [place] [address] Feb, [facility] [address] [address] Feb, [facility] [place] [address] [place] [address] December, [facility] [address], [place] [address] December, [facility] [place] [address] [place] [address] December, [facility] [address], [place] [address] December, [facility] [place] [address] [place] [address] Nov, [facility] [id number] [address] Nov, [facility] [place] [address] [place] [address] Nov, [facility] [address], [place] [address] Nov, [facility] [place] [address] [place] [address] Nov, [facility] [id number] [address] Nov, [facility] [address], [place] [address] Oct, [facility] [address], [place] [address] Oct, [facility] [address] [id number] [place] [address] Aug, [facility] [address] [facility] [id number] [place] [address] Aug, Justine BHANDARIA [address] [place] [address] Aug, [facility] [address] [facility] [id number] [place] [address] Aug, [facility] [address] [facility] [id number] [place] [address] Aug, [facility] [address] [facility] [id number] [place] [address] Aug, Justine BHANDARIA [address] [facility] [place] [address] Jul, [facility] [address] [id number] [place] [address] Jul, [facility] [address] [facility] [id number] [place] [address] Jul, [facility] [address] [id number] [place] [address] Jul, [facility] [address] [facility] [id number] [place] [address] Jun, [facility] [address] [id number] [place] [address] Jun, [facility] [address] [facility] [id number] [place] [address] Jun, [facility] [address] [facility] [id number] [place] [address] Jun, [facility] [address] [facility] [id number] [place] [address] Jun, [facility] [address] [facility] [id number] [place] [address] Jun, [facility] [place] [facility] [address] [id number] [place] [address] 07 Jun, 2013 [facility] [place] [facility] [address] [id number] [place] [address] Jun, [facility] [place] [facility] [address] [id number] [place] [address] 06 Jun, 2013 [facility] [place] [facility] [address] [id number] [place] [address] May, [facility] [place] [facility] [address] [id number] [place] [address] 18 May, 2013 [facility] [place] [facility] [address] [id number] [place] [address] May, [facility] [place] [facility] [address] [id number] [place] [address] 16 May, 2013 [facility] [place] [facility] [address] [id number] [place] [address] May, [facility] [place] [facility] [address] [id number] [place] [address] May, [facility] [place] [facility] [address] [id number], [place] [address] May, [facility] [place] [facility] [address] [id number] [address] Apr, [facility] [place] [facility] [address] [id number] [address] Mar, [facility] [place] [facility] [address] [id number] [place] [address] Mar, [facility] [place] [facility] [address] [id number] [place] [address] Mar, [facility] [place] [facility] [address] [id number] [address] Mar, [facility] [place] [facility] [address] [id number] [address] 16 Feb, 2013 [facility] [id number] [address] Feb, [facility] [address] [address] Feb, [facility] [id number] [address] Feb, [facility] [address] [address] Feb, [facility] [address], [place] [address] Feb, [facility] [address] [address] Jan, [facility] [address] [address] Jan, [facility] [address] [address] Jan, [facility] [id number] [address] Jan, IMMUNIZATIONS No Known Immunizations SOCIAL HISTORY Never Assessed REASON FOR VISIT 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
--- OUTSIDE RECORDS SUMMARY | 2019-02-01 09:02 | XMS REPORT ---
Author Author Migration, Doctor Organization [facility] Address Unknown Phone Unavailable Care Team Providers Care Buyer Broker Name Role Phone Migration, Doctor Unavailable Unavailable PROBLEMS Type Condition ICD9-CM Code UKC83-CV Code Onset Dates Condition Status SNOMED Code Problem Unspecified hypertrophic and atrophic condition of skin 701.9 Active 334287697 Problem Solitary pulmonary nodule 793.11 Active 095906934 Problem Depressive disorder, not elsewhere classified 311 Active 24705680 Problem Coronary atherosclerosis of unspecified type of vessel, chehalis or graft 414.00 Active 352185315 Problem Diabetic neuropathy 250.60 Active 017845730 Problem Hypomagnesemia 275.2 Active 693525515 Problem Cardiac murmur, unspecified R01.1 Active 403009594 Problem Type 2 diabetes mellitus without complication E11.9 Active 30579824 Problem Type 2 diabetes mellitus with hyperglycemia E11.65 Active 221652615318507 Problem Type 2 diabetes mellitus with diabetic neuropathy, unspecified E11.40 Active 8111154923627 Problem Restless legs syndrome G25.81 Active 13018119 Problem Lumbago with sciatica, left side M54.42 Active 459355646 Problem Pure hyperglyceridemia E78.1 Active 207451241 Problem Lumbago with sciatica, right side M54.41 Active 926925424860466 Problem Essential (primary) hypertension I10 Active 75153437 Problem Fibromyalgia M79.7 Active 321983786 Problem DM neuro manif type II E11.40 Active 754178927 Problem Essential hypertension I10 Active 61346858 Problem Chronic obstructive pulmonary disease, unspecified COPD type J44.9 Active 91763452 ALLERGIES No Information ENCOUNTERS Encounter Location Date Diagnosis [facility] [address] [place] [address] Nov, [facility] [address] [place] [address] Oct, Type 2 diabetes mellitus with hyperglycemia E11.65 [facility] [address] [place] [address] Sep, Restless legs syndrome G25.81 and Essential (primary) hypertension I10 [facility] [address] [place] [address] [place] [address] Sep, [facility] [address] [place] [address] Sep, Hospital discharge follow-up Z09 [facility] [address] [place] [address] Sep, [facility] [address] [place] [address] Aug, Essential (primary) hypertension I10 [facility] [address] [id number] [place] [id number] Aug, [facility] [address] [facility] [id number] [address] Aug, Restless legs syndrome G25.81 and Type 2 diabetes mellitus with hyperglycemia E11.65 [facility] [address] [place] [address] Aug, Abnormal CT scan, kidney R93.429 [facility] [address] [place] [address] Jul, [facility] [address] [place] [address] Jul, Restless legs syndrome G25.81 [facility] [address] [place] [address] Jul, [facility] [address] [place] [address] Jul, [facility] [address] [place] [address] Jun, Screening for breast cancer Z12.31 [facility] [address] [place] [address] May, Essential (primary) hypertension I10 [facility] [address] [place] [address] May, Type 2 diabetes mellitus with hyperglycemia E11.65 and Restless legs syndrome G25.81 [facility] [address] [place] [address] Apr, Lumbago with sciatica, left side M54.42 ; Lumbago with sciatica, right side M54.41 and Restless legs syndrome G25.81 [facility] [address] [place] [address] [place] [address] Mar, [facility] [address] [place] [address] Feb, Restless legs syndrome G25.81 and Fibromyalgia M79.7 [facility] [address] [place] [address] Feb, Essential hypertension I10 and Type 2 diabetes mellitus with hyperglycemia E11.65 [facility] [address] [facility] [address] [place] [address] Feb, Essential (primary) hypertension I10 and Exposure to hepatitis C Z20.5 [facility] [address] [place] [address] Jan, [facility] [place] [address] [place] [address] Jan, [facility] [place] [address] [place] [address] Jan, [facility] [place] [address] [place] [address] Jan, [facility] [place] [address] [place] [address] Jan, [facility] [place] [address] [place] [address] Jan, [facility] [place] [address] [place] [address] December, Essential (primary) hypertension I10 [facility] [place] [address] [place] [address] December, Restless legs syndrome G25.81 [facility] [place] [address] [place] [address] December, Restless legs syndrome G25.81 [facility] [place] [address] [place] [address] December, Restless legs syndrome G25.81 [facility] [place] [address] [place] [address] December, Restless legs syndrome G25.81 [facility] [place] [address] [place] [address] Nov, [facility] [address] [address] Nov, Type 2 diabetes mellitus with hyperglycemia E11.65 [facility] [place] [address] [facility] [id number] [place] [address] Nov, Essential hypertension I10 [facility] [address] [address] Oct, Restless legs syndrome G25.[address] [address] Aug, Type 2 diabetes mellitus with hyperglycemia E11.65 ; Restless legs syndrome G25.81 ; Fibromyalgia M79.7 ; Essential hypertension I10 and Urinary urgency R39.[address] [address] May, [facility] [address] [address] May, Type 2 diabetes mellitus with hyperglycemia E11.[address] [address] May, [facility] [address] [address] Apr, Type 2 diabetes mellitus with hyperglycemia E11.[address] [address] Apr, [facility] [address] [address] Apr, Hospital discharge follow-up Z09 ; Cardiac murmur, unspecified R01.1 ; Tobacco abuse Z72.0 and Chronic obstructive pulmonary disease, unspecified COPD type J44.[address] [address] Mar, Type 2 diabetes mellitus with hyperglycemia E11.[address] [address] [address] Feb, Type 2 diabetes mellitus with hyperglycemia E11.65 and Essential hypertension I10 [facility] [place] [address] [place] [address] Feb, Restless legs syndrome G25.81 ; Type 2 diabetes mellitus with hyperglycemia E11.65 ; Essential hypertension I10 and Right upper quadrant pain R10.11 [facility] [place] [address] [place] [address] Feb, [facility] [place] [address] [place] [address] Feb, [facility] [place] [address] [place] [address] Jan, Type 2 diabetes mellitus with hyperglycemia E11.65 and Right sided abdominal pain R10.9 [facility] [place] [address] [place] [address] Jan, [facility] [place] [address] [place] [address] Jan, Nausea R11.0 ; Essential hypertension I10 and Dizziness R42 [facility] [address] [place] [address] Jan, [facility] [place] [address] [place] [address] Nov, [facility] [place] [address] [place] [address] Nov, [facility] [place] [address] [place] [address] Oct, [facility] [place] [address] [place] [address] Oct, [facility] [place] [address] [place] [address] Oct, [facility] [address] [place] [address] Sep, [facility] [address] [facility] [id number] [place] [address] Sep, Ganglion of tendon M67.40 and DM neuro manif type II E11.40 [facility] [place] [address] [place] [address] Aug, Pure hyperglyceridemia E78.1 [facility] [place] [address] [place] [address] Aug, [facility] [place] [address] [place] [address] Aug, [facility] [place] [address] [place] [address] Aug, [facility] [address] [address] Aug, Fibromyalgia M79.7 [facility] [place] [address] [place] [address] Aug, [facility] [address] [address] Aug, Fibromyalgia M79.7 [facility] [address] [address] Aug, Fibromyalgia M79.7 ; Mass of right foot R22.41 and Type 2 diabetes mellitus with hyperglycemia E11.[address] [address] Jun, [facility] [address] [address] Jun, Furuncle L02.92 and Methicillin resistant Staph aureus culture positive Z22.[address] [address] Jun, Furuncle L02.92 ; Cellulitis of other specified site L03.818 and Methicillin resistant Staph aureus culture positive Z22.[address] [address] Jun, [facility] [address] [address] Jun, Furuncle L02.92 and Cellulitis of other specified site L03.[address] [address] May, Pure hyperglyceridemia E78.1 ; Abscess L02.91 ; Restless legs syndrome G25.81 and Type 2 diabetes mellitus with hyperglycemia E11.[address] [place] [id number] [place] [address] May, [facility] [place] [address] [place] [address] May, [facility] [place] [address] [place] [address] May, [facility] [place] [address] [place] [address] Apr, [facility] [place] [address] [place] [address] Mar, Well woman exam Z01.419 ; Encounter for screening mammogram for breast cancer Z12.31 and History of cervical cancer Z85.41 [facility] [place] [address] [place] [address] Mar, Insect bite, multiple W57.XXXA ; Type 2 diabetes mellitus with diabetic neuropathy, unspecified E11.40 ; Essential (primary) hypertension I10 ; DM neuro manif type II E11.40 and Restless legs syndrome G25.81 [facility] [place] [address] [place] [address] Feb, [facility] [place] [address] [place] [address] Feb, [facility] [address] [address] Feb, [facility] [address] [address] Jan, [facility] [place] [address] [place] [address] Jan, [facility] [place] [address] [place] [address] Jan, Abscess L02.91 [facility] [place] [address] [place] [address] December, DM neuro manif type II E11.40 ; Pure hyperglyceridemia E78.1 ; Essential (primary) hypertension I10 and Type 2 diabetes mellitus without complication E11.9 [facility] [place] [address] [place] [address] Oct, [facility] [place] [address] [place] [address] Sep, [facility] [place] [address] [place] [address] Sep, [facility] [place] [address] [place] [address] Sep, [facility] [place] [address] [place] [address] Sep, Type 2 diabetes mellitus without complication E11.9 ; Pure hyperglyceridemia E78.1 ; Cardiac murmur, unspecified R01.1 and Essential (primary) hypertension I10 [facility] [place] [address] [place] [address] Aug, [facility] [place] [address] [place] [address] Jul, [facility] [place] [address] [place] [address] Jul, [facility] [place] [address] [place] [address] Jun, [facility] [place] [address] [place] [address] Jun, [facility] [place] [address] [place] [address] May, [facility] [place] [address] [place] [address] May, [facility] [place] [address] [place] [address] May, [facility] [place] [address] [place] [address] May, [facility] [place] [address] [place] [address] May, [facility] [place] [address] [place] [address] May, [facility] [place] [address] [place] [address] Apr, Onychomycosis 110.1 [facility] [place] [address] [place] [address] 15 Apr, [address] [facility] [address] [address] 14 Apr, 2015 Nail dystrophy 703.[address] [address] 08 Apr, 2015 Ingrown nail 703.[address] [address] 04 Apr, 2015 Ingrown nail 703.[address] [address] Mar, [address] [address] Mar, Diabetic neuropathy 250.60 ; Fibromyalgia 729.1 and Lumbago 724.[address] [address] Mar, [address] [address] Jan, Diabetes mellitus without mention of complication, type II or unspecified type, uncontrolled 250.02 and Hypomagnesemia 275.[address] [address] Jan, [address] [address] Jan, Coronary atherosclerosis of unspecified type of vessel, chehalis or graft 414.00 ; Essential hypertension, benign 401.1 ; Other and unspecified hyperlipidemia 272.4 ; Diabetes mellitus without mention of complication, type II or unspecified type, uncontrolled 250.02 ; Depressive disorder, not elsewhere classified 311 and Restless legs syndrome [RLS] 333.[address] [address] Jan, [address] [address] December, Sciatica 724.3 ; Muscle spasm 728.85 ; UTI (urinary tract infection) 599.0 and Dysuria 788.[address] [address] December, [address] [place] [address] December, Scabies 133.[address].5 [facility] [address] [address] Nov, [facility] [address] [address] Nov, [facility] [place] [address] [place] [address] Aug, [facility] [address] [place] [id number] [place] [address] Aug, [facility] [place] [address] [place] [address] Jul, [facility] [address] [address] Jul, [facility] [place] [address] [place] [address] Jul, [facility] [address] [address] Jul, [facility] [place] [address] [place] [address] Jul, [facility] [address] [address] Jul, [facility] [place] [address] [place] [address] Jun, [facility] [address] [address] Jun, [facility] [place] [address] [place] [address] Jun, [facility] [address] [address] Jun, [facility] [place] [address] [place] [address] May, [facility] [address] [address] May, [facility] [place] [facility] [address] [id number] [address] 29 Apr, 2013 [facility] [place] [facility] [address] [id number] [address] 29 Apr, 2013 [facility] [place] [address] [place] [address] Apr, 2013 [facility] [place] [facility] [address] [id number] [address] Apr, 2013 [facility] [place] [address] [place] [address] Apr, 2013 [facility] [place] [facility] [address] [place] [id number] [place] [address] Apr, 2013 [facility] [place] [facility] [address] [address] 19 Apr, 2013 [facility] [place] [address] [place] [address] 18 Apr, 2013 [facility] [place] [facility] [address] [id number] [address] 18 Apr, 2013 [facility] [place] [address] [place] [address] Apr, 2013 [facility] [place] [facility] [address] [id number] [address] 12 Apr, 2013 [facility] [place] [facility] [address] [id number] [address] 10 Apr, 2013 [facility] [place] [address] [place] [address] 08 Apr, 2013 [facility] [place] [address] [place] [address] 08 Apr, 2013 [facility] [place] [facility] [address] [id number] [address] 08 Apr, 2013 [facility] [place] [facility] [address] [id number] [address] 08 Apr, 2013 [facility] [place] [address] [facility] [place] [address] Mar, [facility] [id number] [place] [address] Mar, [facility] [place] [address] [facility] [place] [address] Mar, [facility] [id number] [address] Mar, [facility] [place] [address] [facility] [place] [address] Feb, [facility] [id number] [place] [address] Feb, [facility] [place] [address] [facility] [place] [address] December, [facility] [address] [address] December, [facility] [place] [address] [place] [address] December, [facility] [address] [id number] [address] December, [facility] [place] [address] [place] [address] Nov, [facility] [address] [address] Nov, [facility] [place] [address] [facility] [place] [address] Nov, [facility] [place] [facility] [address] [id number] [address] Nov, [facility] [place] [address] [place] [address] Nov, [facility] [place] [facility] [address] [id number] [place] [address] Nov, [facility] [address] [id number] [address] Oct, [facility] [place] [facility] [address] [facility] [id number] [address] Oct, [facility] [address] [address] Aug, [facility] [place] [id number] [place] [address] Aug, nancyJhonatan [place] [address] [place] [address] Aug, [facility] [address] [address] Aug, [facility] [id number] [place] [address] Aug, [facility] [address] [address] Aug, [facility] [place] [address] [place] [address] Jul, [facility] [address] [address] Jul, [facility] [address] [address] Jul, [facility] [address] [address] Jul, [facility] [address] [address] Jun, [facility] [place] [facility] [address] [facility] [id number] [address] Jun, [facility] [address] [id number] [address] Jun, [facility] [place] [facility] [address] [facility] [id number] [place] [address] Jun, [facility] [place] [facility] [address] [id number] [address] Jun, [facility] [place] [facility] [address] [id number] [place] [address] 07 Jun, 2012 [facility] [place] [facility] [address] [id number] [place] [address] 07 Jun, 2013 [facility] [place] [facility] [address] [id number] [place] [address] 06 Jun, 2012 [facility] [place] [facility] [address] [id number] [place] [address] 06 Jun, 2012 [facility] [place] [facility] [address] [id number] [place] [address] 18 May, 2013 [facility] [place] [facility] [address] [id number] [place] [address] 18 May, 2013 [facility] [place] [facility] [address] [id number] [place] [address] 16 May, 2013 [facility] [place] [facility] [address] [id number] [place] [address] 16 May, 2013 [facility] [place] [facility] [address] [id number] [place] [address] 14 May, 2013 [facility] [place] [facility] [address] [id number] [place] [address] 14 May, 2013 [facility] [place] [facility] [address] [id number] [place] [address] May, [facility] [place] [facility] [address] [id number] [place] [address] Apr, [facility] [place] [facility] [address] [id number] [place] [address] Mar, [facility] [place] [facility] [address] [id number] [place] [address] Mar, [facility] [place] [facility] [address] [id number] [place] [address] Mar, [facility] [place] [facility] [address] [id number] [place] [address] Mar, [facility] [address] [id number] [address] Feb, [facility] [address] [id number] [address] Feb, [facility] [address] [id number] [address] Feb, [facility] [address]65100[place] [address] Feb, [facility] [address] [id number] [address] Feb, [facility] [address]65[address] [address] Feb, [facility] [address]65[address] [address] Jan, [facility] [address]65100[place] [address] Jan, [facility] [address] [id number] [address] Jan, 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
--- OUTSIDE RECORDS SUMMARY | 2019-02-01 09:03 | XMS REPORT ---
Author Author SJ ALY [facility] [address] [place] [address] Care Team Providers Care Emblem Drawer In Name Role Phone SJ ALY Unavailable PROBLEMS Type Condition ICD9-CM Code CON30-SW Code Onset Dates Condition Status SNOMED Code Problem Type 2 diabetes mellitus with hyperglycemia E11.65 Active 192960547861082 Problem Restless legs syndrome G25.81 Active 32379940 Problem Type 2 diabetes mellitus with diabetic neuropathy, unspecified E11.40 Active 8637392333380 Problem Lumbago with sciatica, right side M54.41 Active 716805463847116 Problem Lumbago with sciatica, left side M54.42 Active 982125841 Problem DM neuro manif type II E11.40 Active 021826930 Problem Fibromyalgia M79.7 Active 087938752 Problem Chronic obstructive pulmonary disease, unspecified COPD type J44.9 Active 43988594 Problem Essential hypertension I10 Active 48616041 Problem Coronary atherosclerosis of unspecified type of vessel, [place] or graft 414.00 Active 035555694 Problem Depressive disorder, not elsewhere classified 311 Active 25495436 Problem Solitary pulmonary nodule 793.11 Active 438413914 Problem Unspecified hypertrophic and atrophic condition of skin 701.9 Active 336003538 Problem Type 2 diabetes mellitus without complication E11.9 Active 63985816 Problem Cardiac murmur, unspecified R01.1 Active 419467802 Problem Hypomagnesemia 275.2 Active 977924130 Problem Essential (primary) hypertension I10 Active 35145220 Problem Diabetic neuropathy 250.60 Active 853692109 Problem Pure hyperglyceridemia E78.1 Active 575073507 ALLERGIES No Information ENCOUNTERS Encounter Location Date Diagnosis [facility] [address] [place] [address] [place] [address] Jul, [facility] [address] [address] [place] [address] Jul, [facility] [address] [place] [address] [place] [address] Jun, Screening for breast cancer Z12.31 [facility] [address] [address] May, Essential (primary) hypertension I10 [facility] [address] [address] May, Type 2 diabetes mellitus with hyperglycemia E11.65 and Restless legs syndrome G25.[address] [facility] [address] [place] [address] Apr, Lumbago with sciatica, left side M54.42 ; Lumbago with sciatica, right side M54.41 and Restless legs syndrome G25.[address] [facility] [address] [place] [address] Mar, [facility] [address] [place] [address] Feb, Restless legs syndrome G25.81 and Fibromyalgia M79.7 [facility] [address] [place] [address] Feb, Essential hypertension I10 and Type 2 diabetes mellitus with hyperglycemia E11.65 [facility] [address] [place] [address] Feb, Essential (primary) hypertension I10 and Exposure to hepatitis C Z20.[address] [facility] [address] [address] Jan, [facility] [address] [address] Jan, [facility] [address] [address] Jan, [facility] [place] [address] [place] [address] Jan, [facility] [address] [place] [address] Jan, [facility] [place] [address] [place] [address] Jan, [facility] [address] [place] [address] December, Essential (primary) hypertension I10 [facility] [place] [address] [place] [address] December, Restless legs syndrome G25.81 [facility] [place] [address] [place] [address] December, Restless legs syndrome G25.81 [facility] [place] [address] [place] [address] December, Restless legs syndrome G25.81 [facility] [place] [address] [place] [address] December, Restless legs syndrome G25.81 [facility] [place] [address] [place] [address] Nov, [facility] [place] [address] [place] [address] Nov, Type 2 diabetes mellitus with hyperglycemia E11.65 [facility] [address] [facility] [id number] [place] [address] Nov, Essential hypertension I10 [facility] [place] [address] [place] [address] Oct, Restless legs syndrome G25.81 [facility] [place] [address] [place] [address] Aug, Type 2 diabetes mellitus with hyperglycemia E11.65 ; Restless legs syndrome G25.81 ; Fibromyalgia M79.7 ; Essential hypertension I10 and Urinary urgency R39.15 [facility] [place] [address] [place] [address] May, [facility] [place] [address] [place] [address] 16 May, 2017 Type 2 diabetes mellitus with hyperglycemia E11.65 [facility] [place] [address] [place] [address] 10 May, 2017 [facility] [place] [address] [place] [address] 19 Apr, 2017 Type 2 diabetes mellitus with hyperglycemia E11.65 [facility] [place] [address] [place] [address] 15 Apr, 2017 [facility] [place] [address] [place] [address] Apr, Hospital discharge follow-up Z09 ; Cardiac murmur, unspecified R01.1 ; Tobacco abuse Z72.0 and Chronic obstructive pulmonary disease, unspecified COPD type J44.9 [address] [place] [address] Mar, Type 2 diabetes mellitus with hyperglycemia E11.65 [facility] [address] [address] [place] [address] Feb, Type 2 diabetes mellitus with hyperglycemia E11.65 and Essential hypertension I10 [facility] [address] [place] [address] Feb, Restless legs syndrome G25.81 ; Type 2 diabetes mellitus with hyperglycemia E11.65 ; Essential hypertension I10 and Right upper quadrant pain R10.11 [facility] [address] [address] [place] [address] Feb, [facility] [address] [place] [address] Feb, [facility] [address] [place] [address] Jan, Type 2 diabetes mellitus with hyperglycemia E11.65 and Right sided abdominal pain R10.9 [facility]ha[facility]NEERAJ [address] [address] [place] [address] Jan, nancyCHCSNEERAJ [address] [address] Jan, Nausea R11.0 ; Essential hypertension I10 and Dizziness R42 innaCHCSNEERAJ [place] [address] [place] [address] Jan, [facility] [place] [address] [place] [address] Nov, [facility] [place] [address] [place] [address] Nov, [facility] [place] [address] [place] [address] Oct, [facility] [place] [address] [place] [address] Oct, [facility] [place] [address] [place] [address] Oct, [facility] [address] [place] [address] Sep, [facility] [address] [facility] [id number] [place] [address] Sep, Ganglion of tendon M67.40 and DM neuro manif type II E11.40 [facility] [address] [place] [address] Aug, Pure hyperglyceridemia E78.1 [facility] [address] [address] [place] [address] Aug, [facility] [address] [address] [place] [address] Aug, [facility] [place] [address] [place] [address] Aug, [facility] [address] [place] [address] Aug, Fibromyalgia M79.7 [facility] [address] [place] [address] Aug, [facility] [address] [address] Aug, Fibromyalgia M79.7 [facility] [address] [place] [address] Aug, Fibromyalgia M79.7 ; Mass of right foot R22.41 and Type 2 diabetes mellitus with hyperglycemia E11.65 [facility] [address] [place] [address] Jun, [facility] [address] [place] [address] Jun, Furuncle L02.92 and Methicillin resistant Staph aureus culture positive Z22.322 [facility] [address] [address] Jun, Furuncle L02.92 ; Cellulitis of other specified site L03.818 and Methicillin resistant Staph aureus culture positive Z22.322 [facility] [address] [address] Jun, [facility] [address] [place] [address] Jun, Furuncle L02.92 and Cellulitis of other specified site L03.818 [facility] [address] [place] [address] May, Pure hyperglyceridemia E78.1 ; Abscess L02.91 ; Restless legs syndrome G25.81 and Type 2 diabetes mellitus with hyperglycemia E11.65 [facility] [address] [place] [address] May, [facility] [address] [address] May, [facility] [address] [address] May, [address] [address] Apr, [address] [address] Mar, Well woman exam Z01.419 ; Encounter for screening mammogram for breast cancer Z12.31 and History of cervical cancer Z85.[address] [address] Mar, Insect bite, multiple W57.XXXA ; Type 2 diabetes mellitus with diabetic neuropathy, unspecified E11.40 ; Essential (primary) hypertension I10 ; DM neuro manif type II E11.40 and Restless legs syndrome G25.81 [facility] [address] [place] [address] Feb, [address] [address] Feb, [address] [address] Feb, [address] [address] Jan, [address] [address] Jan, [address] [place] [address] Jan, Abscess L02.91 [facility] [place] [address] [place] [address] December, DM neuro manif type II E11.40 ; Pure hyperglyceridemia E78.1 ; Essential (primary) hypertension I10 and Type 2 diabetes mellitus without complication E11.9 [facility] [place] [address] [place] [address] Oct, [facility] [place] [address] [place] [address] Sep, [facility] [place] [address] [place] [address] Sep, [facility] [place] [address] [place] [address] Sep, [facility] [place] [address] [place] [address] Sep, Type 2 diabetes mellitus without complication E11.9 ; Pure hyperglyceridemia E78.1 ; Cardiac murmur, unspecified R01.1 and Essential (primary) hypertension I10 [facility] [place] [address] [place] [address] Aug, [facility] [place] [address] [place] [address] Jul, [facility] [place] [address] [place] [address] Jul, [facility] [place] [address] [place] [address] Jun, [facility] [place] [address] [place] [address] Jun, [facility] [place] [address] [place] [address] May, [facility] [place] [address] [place] [address] May, [facility] [place] [address] [place] [address] May, [facility] [place] [address] [place] [address] May, [facility] [address] [place] [address] May, [facility] [address] [place] [address] May, [facility] [address] [place] [address] Apr, Onychomycosis 110.1 [facility] [address] [place] [address] 15 Apr, 2015 [facility] [address] [place] [address] 14 Apr, 2015 Nail dystrophy 703.[address] [address] 08 Apr, 2015 Ingrown nail 703.[address] [address] Apr, Ingrown nail 703.[address] [address] Mar, [address] [address] Mar, Diabetic neuropathy 250.60 ; Fibromyalgia 729.1 and Lumbago 724.[address] [address] Mar, [address] [address] Jan, Diabetes mellitus without mention of complication, type II or unspecified type, uncontrolled 250.02 and Hypomagnesemia 275.2 [facility] [address] [place] [address] Jan, [facility] [address] [place] [address] Jan, Coronary atherosclerosis of unspecified type of vessel, [place] or graft 414.00 ; Essential hypertension, benign 401.1 ; Other and unspecified hyperlipidemia 272.4 ; Diabetes mellitus without mention of complication, type II or unspecified type, uncontrolled 250.02 ; Depressive disorder, not elsewhere classified 311 and Restless legs syndrome [RLS] 333.94 [facility] [place] [address] [place] [address] Jan, [facility] [place] [address] [place] [address] December, Sciatica 724.3 ; Muscle spasm 728.85 ; UTI (urinary tract infection) 599.0 and Dysuria 788.1 [facility] [place] [address] [place] [address] December, [facility] [place] [address] [place] [address] December, Scabies 133.0 and Leg pain 729.5 [place] [id number] [place] [address] Nov, [place] [id number] [place] [address] Nov, [facility] [place] [address] [place] [address] Aug, [facility] [address] [place] [id number] [place] [address] Aug, [facility] [place] [address] [place] [address] Jul, [facility] [address] [place], [place] [id number] [place] [address] Jul, [facility] [place] [address] [place] [address] Jul, [facility] [address] [place] [id number] [place] [address] Jul, [facility] [place] [address] [place] [address] Jul, [facility] [address] [place], [place] [id number] [place] [address] Jul, [facility] [place] [address] [place] [address] Jun, [facility] [address] [place] [id number] [place] [address] Jun, [facility] [place] [address] [place] [address] Jun, [facility] [id number] [address] Jun, [facility] [place] [address] [place] [address] May, [facility] [id number] [place] [address] May, [facility] [id number] [place] [address] Apr, [facility] [id number] [place] [address] 29 Apr, 2014 [facility] [place] [address] [place] [address] Apr, [facility] [id number] [place] [address] Apr, [facility] [place] [address] [place] [address] Apr, [facility] [id number] [place] [address] Apr, [facility] [place] [facility] [id number] [address] Apr, [facility] [place] [address] [place] [address] 18 Apr, 2014 [facility] [place] [facility] [id number] [address] 18 Apr, 2014 [facility] [place] [address] [place] [address] Apr, [facility] [id number], [place] [address] Apr, [facility] [id number] [address] 10 Apr, 2013 [facility] [place] [address] [place] [address] Apr, [facility] [place] [address] [place] [address] Apr, [facility] [address] [facility] [id number] [address] Apr, [facility] [id number] [address] Apr, [facility] [place] [address] [place] [address] Mar, [facility] [id number] [address] Mar, [facility] [place] [address] [place] [address] Mar, [facility] [id number] [address] Mar, [facility] [place] [address] [place] [address] Feb, [facility] [id number] [address] Feb, [facility] [place] [address] [place] [address] December, [facility] [id number] [address] December, [facility] [place] [address] [place] [address] December, [facility] [address] [id number] [address] December, [facility] [place] [address] [place] [address] Nov, [facility] [address] [id number] [place] [address] Nov, [facility] [place] [address] [place] [address] Nov, [facility] [address]005[address], [place] [address] Nov, Justine [place] [address] [place] [address] Nov, [facility] [address] [facility] [id number][place] [address] Nov, [facility] [address], [place] [address] Oct, [facility] [address] [facility] [id number], [place] [address] Oct, [facility] [id number] [address] Aug, [facility] [id number] [place] [address] Aug, Justine [place] [address] [place] [address] Aug, [facility] [address]005[address]100[place] [address] Aug, [facility] [address], [place] [address] Aug, [facility] [address], [place] [address] Aug, Justine [place] [address] [place] [address] Jul, [facility] [address] [id number] [address] Jul, [facility] [id number] [address] Jul, [facility] [id number] [address] Jul, [facility] [place] [facility] [address] [id number], [place] [address] Jun, [facility] [id number] [place] [address] 12 Jun, 2013 [facility] [address] [id number] [place] [address] 12 Jun, 2013 [facility] [place] [facility] [address] [id number] [place] [address] 08 Jun, 2013 [facility] [address] [id number] [place] [address] 08 Jun, 2012 [facility] [place] [facility] [address] [id number] [place] [address] 07 Jun, 2012 [facility] [place] [facility] [address] [id number] [place] [address] 07 Jun, 2013 [facility] [place] [facility] [address] [id number] [place] [address] 06 Jun, 2013 [facility] [place] [facility] [address] [id number] [place] [address] 06 Jun, 2013 [facility] [address] [id number] [place] [address] 18 May, 2013 [facility] [place] [facility] [address] [id number] [place] [address] 18 May, 2013 [facility] [address] [facility] [id number] [place] [address] 16 May, 2013 [facility] [place] [facility] [address] [id number] [place] [address] 16 May, 2013 [facility] [place] [facility] [address] [id number] [address] 14 May, 2013 [facility] [place] [facility] [address] [id number] [place] [address] 14 May, 2013 [facility] [place] [facility] [address] [id number] [place] [address] 04 May, 2013 [facility] [place] [facility] [address] [id number] [place] [address] Apr, [facility] [address] [facility] [id number], [place] [address] Mar, [facility] [address] [facility] [id number] [address] Mar, [facility] [address] [facility] [id number] [address] Mar, [facility] [address] [facility] [id number][place] [address] Mar, [facility] [address] [facility] [id number], [place] [address] Feb, [facility] [address] [facility] [id number] [address] Feb, [facility] [id number] [address] Feb, [facility] [address] [id number], [place] [address] Feb, [facility] [id number] [address] Feb, [facility] [id number] [address] Feb, [facility] [id number] [address] Jan, [facility] [id number], [place] [address] Jan, [facility] [address] [facility] [id number][place] [address] Jan, [facility] [id number], [place] [address] Jan, IMMUNIZATIONS No Known Immunizations SOCIAL HISTORY Never Assessed REASON FOR VISIT script for Atorvastatin PLAN OF CARE VITAL SIGNS MEDICATIONS Medication Instructions Dosage Frequency Start Date End Date Duration Status Atorvastatin Calcium 40 mg Orally Once a day 1 tablet 24h May, 90 days Active RESULTS No Results PROCEDURES No Known procedures INSTRUCTIONS MEDICATIONS ADMINISTERED No Known Medications MEDICAL (GENERAL) HISTORY Type Description Date Medical History Atherosclerotic heart disease of [place] coronary artery without angina pectoris Medical History [...] Surgical History appendectomy Surgical History heart cath Hospitalization History Child Hospitalization History Surgery Hospitalization History IBS x 3months Hospitalization History sepsis 04/2017
--- OUTSIDE RECORDS SUMMARY | 2019-02-01 09:03 | XMS REPORT ---
Author Author Migration, Doctor Organization [facility] Address Unknown Phone Unavailable Care Team Providers Care Engine Repairer Service Name Role Phone Migration, Doctor Unavailable Unavailable PROBLEMS Type Condition ICD9-CM Code BCX00-LD Code Onset Dates Condition Status SNOMED Code Problem Unspecified hypertrophic and atrophic condition of skin 701.9 Active 542691731 Problem Solitary pulmonary nodule 793.11 Active 846960734 Problem Depressive disorder, not elsewhere classified 311 Active 20255712 Problem Coronary atherosclerosis of unspecified type of vessel, ramona or graft 414.00 Active 737174373 Problem Diabetic neuropathy 250.60 Active 785218511 Problem Hypomagnesemia 275.2 Active 131501013 Problem Cardiac murmur, unspecified R01.1 Active 872276389 Problem Type 2 diabetes mellitus without complication E11.9 Active 71337104 Problem Type 2 diabetes mellitus with hyperglycemia E11.65 Active 120663825181993 Problem Type 2 diabetes mellitus with diabetic neuropathy, unspecified E11.40 Active 2113535013039 Problem Restless legs syndrome G25.81 Active 29387889 Problem Lumbago with sciatica, left side M54.42 Active 682211643 Problem Pure hyperglyceridemia E78.1 Active 308071911 Problem Lumbago with sciatica, right side M54.41 Active 239019612124283 Problem Essential (primary) hypertension I10 Active 35388967 Problem Fibromyalgia M79.7 Active 492379697 Problem DM neuro manif type II E11.40 Active 099847791 Problem Essential hypertension I10 Active 36763662 Problem Chronic obstructive pulmonary disease, unspecified COPD type J44.9 Active 63379642 ALLERGIES No Information ENCOUNTERS Encounter Location Date Diagnosis [facility] [address] [facility] [place] [address] Oct, Type 2 diabetes mellitus with hyperglycemia E11.65 [facility] [address] [place] [address] 28 Sep, 2018 Restless legs syndrome G25.81 and Essential (primary) hypertension I10 [facility] [address] [place] [address] Sep, [facility] [address] [place] [address] Sep, Hospital discharge follow-up Z09 [facility] [address] [place] [address] 18 Sep, 2018 [facility] [address] [place] [address] Aug, Essential (primary) hypertension I10 [facility] [address] [id number] [place] [id number] Aug, [facility] [address] [facility] [id number] [address] Aug, Restless legs syndrome G25.81 and Type 2 diabetes mellitus with hyperglycemia E11.65 [facility] [address] [place] [address] Aug, Abnormal CT scan, kidney R93.429 [facility] [address] [place] [address] Jul, [facility] [address] [place] [address] Jul, Restless legs syndrome G25.81 [facility] [address] [place] [address] 05 Jul, 2018 [facility] [address] [place] [address] Jul, [facility] [address] [place] [address] Jun, Screening for breast cancer Z12.31 [facility] [address] [address] May, Essential (primary) hypertension I10 [facility] [address] [place] [address] May, Type 2 diabetes mellitus with hyperglycemia E11.65 and Restless legs syndrome G25.81 [facility] [address] [place] [address] Apr, Lumbago with sciatica, left side M54.42 ; Lumbago with sciatica, right side M54.41 and Restless legs syndrome G25.81 [facility] [address] [place] [address] [place] [address] Mar, [facility] [address] [place] [address] [place] [address] Feb, Restless legs syndrome G25.81 and Fibromyalgia M79.7 [facility] [address] [address] [place] [address] Feb, Essential hypertension I10 and Type 2 diabetes mellitus with hyperglycemia E11.65 [facility] [address] [address] [place] [address] Feb, Essential (primary) hypertension I10 and Exposure to hepatitis C Z20.5 [facility] [address] [place] [address] Jan, [facility] [place] [address] [place] [address] Jan, [facility] [place] [address] [place] [address] Jan, [facility] [place] [address] [place] [address] Jan, [facility] [place] [address] [place] [address] Jan, [facility] [place] [address] [place] [address] Jan, [facility] [place] [address] [place] [address] December, Essential (primary) hypertension I10 [facility] [place] [address] [place] [address] December, Restless legs syndrome G25.81 [facility] [place] [address] [place] [address] December, Restless legs syndrome G25.81 [facility] [place] [address] [place] [address] December, Restless legs syndrome G25.81 [facility] [place] [address] [place] [address] December, Restless legs syndrome G25.81 [facility] [place] [address] [place] [address] Nov, [facility] [place] [address] [place] [address] Nov, Type 2 diabetes mellitus with hyperglycemia E11.65 [facility] [address] [facility] [id number] [place] [address] 16 Nov, 2017 Essential hypertension I10 [facility] [place] [address] [place] [address] Oct, Restless legs syndrome G25.81 [facility] [place] [address] [place] [address] Aug, Type 2 diabetes mellitus with hyperglycemia E11.65 ; Restless legs syndrome G25.81 ; Fibromyalgia M79.7 ; Essential hypertension I10 and Urinary urgency R39.15 [facility] [place] [address] [place] [address] May, [facility] [address] [address] May, Type 2 diabetes mellitus with hyperglycemia E11.65 [facility] [address] [place] [address] May, [facility] [address] [address] Apr, Type 2 diabetes mellitus with hyperglycemia E11.65 [facility] [address] [place] [address] Apr, [facility] [address] [address] Apr, Hospital discharge follow-up Z09 ; Cardiac murmur, unspecified R01.1 ; Tobacco abuse Z72.0 and Chronic obstructive pulmonary disease, unspecified COPD type J44.9 [facility] [place] [address] [place] [address] Mar, Type 2 diabetes mellitus with hyperglycemia E11.65 [facility] [place] [address] [place] [address] Feb, Type 2 diabetes mellitus with hyperglycemia E11.65 and Essential hypertension I10 [facility] [place] [address] [place] [address] Feb, Restless legs syndrome G25.81 ; Type 2 diabetes mellitus with hyperglycemia E11.65 ; Essential hypertension I10 and Right upper quadrant pain R10.11 [facility] [place] [address] [place] [address] Feb, [facility] [place] [address] [place] [address] Feb, [facility] [place] [address] [place] [address] Jan, Type 2 diabetes mellitus with hyperglycemia E11.65 and Right sided abdominal pain R10.9 [facility] [place] [address] [place] [address] Jan, [facility] [place] [address] [place] [address] Jan, Nausea R11.0 ; Essential hypertension I10 and Dizziness R42 [facility] [place] [address] [place] [address] Jan, [facility] [place] [address] [place] [address] Nov, [facility] [place] [address] [place] [address] Nov, [facility] [place] [address] [place] [address] Oct, [facility] [place] [address] [place] [address] Oct, [facility] [place] [address] [place] [address] Oct, [facility] [place] [address] [place] [address] Sep, [facility] [address] [facility] [id number] [place] [address] Sep, Ganglion of tendon M67.40 and DM neuro manif type II E11.40 [facility] [place] [address] [place] [address] Aug, Pure hyperglyceridemia E78.1 [facility] [place] [address] [place] [address] Aug, [facility] [place] [address] [place] [address] Aug, [facility] [address] [place] [address] Aug, Jhonatan [place] [address] [place] [address] Aug, Fibromyalgia M79.7 [facility] [place] [address] [place] [address] Aug, [facility] [place] [address] [place] [address] 03 Aug, 2016 Fibromyalgia M79.7 [facility] [place] [address] [place] [address] 03 Aug, 2016 Fibromyalgia M79.7 ; Mass of right foot R22.41 and Type 2 diabetes mellitus with hyperglycemia E11.65 [facility] [place] [address] [place] [address] Jun, [facility] [address] [address] Jun, Furuncle L02.92 and Methicillin resistant Staph aureus culture positive Z22.322 [facility] [address] [address] Jun, Furuncle L02.92 ; Cellulitis of other specified site L03.818 and Methicillin resistant Staph aureus culture positive Z22.322 [facility] [place] [address] [place] [address] Jun, [facility] [place] [address] [place] [address] Jun, Furuncle L02.92 and Cellulitis of other specified site L03.818 [facility] [address] [address] May, Pure hyperglyceridemia E78.1 ; Abscess L02.91 ; Restless legs syndrome G25.81 and Type 2 diabetes mellitus with hyperglycemia E11.65 [facility] [place] [address] [place] [address] May, zJhonatan [place] [address] [place] [address] 18 May, 2016 [facility] [place] [address] [place] [address] May, Jhonatan [place] [address] [place] [address] Apr, [facility] [place] [address] [place] [address] Mar, Well woman exam Z01.419 ; Encounter for screening mammogram for breast cancer Z12.31 and History of cervical cancer Z85.41 [facility] [place] [address] [place] [address] Mar, Insect bite, multiple W57.XXXA ; Type 2 diabetes mellitus with diabetic neuropathy, unspecified E11.40 ; Essential (primary) hypertension I10 ; DM neuro manif type II E11.40 and Restless legs syndrome G25.81 [facility] [place] [address] [place] [address] Feb, [facility] [place] [address] [place] [address] Feb, [facility] [place] [address] [place] [address] Feb, [facility] [place] [address] [place] [address] Jan, [facility] [place] [address] [place] [address] Jan, [facility] [place] [address] [place] [address] Jan, Abscess L02.91 [facility] [place] [address] [place] [address] December, DM neuro manif type II E11.40 ; Pure hyperglyceridemia E78.1 ; Essential (primary) hypertension I10 and Type 2 diabetes mellitus without complication E11.9 [facility] [place] [address] [place] [address] Oct, [facility] [place] [address] [place] [address] Sep, [facility] [place] [address] [place] [address] Sep, [facility] [place] [address] [place] [address] Sep, [facility] [place] [address] [place] [address] Sep, Type 2 diabetes mellitus without complication E11.9 ; Pure hyperglyceridemia E78.1 ; Cardiac murmur, unspecified R01.1 and Essential (primary) hypertension I10 [facility] [place] [address] [place] [address] Aug, [facility] [place] [address] [place] [address] Jul, [facility] [place] [address] [place] [address] Jul, [facility] [place] [address] [place] [address] Jun, [facility] [place] [address] [place] [address] Jun, [facility] [place] [address] [place] [address] May, [facility] [place] [address] [place] [address] May, [facility] [place] [address] [place] [address] May, [facility] [place] [address] [place] [address] May, [facility] [place] [address] [place] [address] May, [facility] [place] [address] [place] [address] May, [facility] [place] [address] [place] [address] Apr, Onychomycosis 110.1 [facility] [place] [address] [place] [address] 15 Apr, 2015 [facility] [place] [address] [place] [address] 14 Apr, 2015 Nail dystrophy 703.8 [facility] [address] [place] [address] 08 Apr, 2015 Ingrown nail 703.[address] [address] Apr, Ingrown nail 703.[address] [address] Mar, [address] [address] Mar, Diabetic neuropathy 250.60 ; Fibromyalgia 729.1 and Lumbago 724.[address] [address] Mar, [address] [address] Jan, Diabetes mellitus without mention of complication, type II or unspecified type, uncontrolled 250.02 and Hypomagnesemia 275.[address] [address] Jan, [address] [address] Jan, Coronary atherosclerosis of unspecified type of vessel, ramona or graft 414.00 ; Essential hypertension, benign 401.1 ; Other and unspecified hyperlipidemia 272.4 ; Diabetes mellitus without mention of complication, type II or unspecified type, uncontrolled 250.02 ; Depressive disorder, not elsewhere classified 311 and Restless legs syndrome [RLS] 333.[address] [address] Jan, [address] [address] December, Sciatica 724.3 ; Muscle spasm 728.85 ; UTI (urinary tract infection) 599.0 and Dysuria 788.[address] [address] December, [address] [address] December, Scabies 133.0 and Leg pain 729.5 [facility] [place] [facility] [address]65[place] [address] Nov, [facility] [address]00565100[place], [place] [address] Nov, [facility] [place] [address] [place] [address] Aug, [facility] [address] [place] [id number] [place] [address] Aug, [facility] [place] [address] [place] [address] Jul, [facility] [id number] [place] [address] Jul, [facility] [place] [address] [place] [address] Jul, [facility] [id number] [place] [address] Jul, [facility] [place] [address] [place] [address] Jul, [facility] [address] [place] [address] Jul, [facility] [place] [address] [place] [address] Jun, [facility] [address]65[address] [address] Jun, [facility] [place] [address] [place] [address] Jun, [facility] [address]65[address], [place] [address] Jun, [facility] [place] [address] [place] [address] May, [facility] [address]65[address] [address] May, [facility] [address]65[address], [place] [address] Apr, 2013 [facility] [address] [facility] [id number] [address] 29 Apr, 2013 [facility] [place] [address] [place] [address] Apr, 2013 [facility] [address] [id number] [address] Apr, 2013 [facility] [place] [address] [place] [address] Apr, 2013 [facility] [address] [place] [address] [id number] [address] Apr, 2013 [facility] [address] [id number] [address] Apr, 2013 [facility] [place] [address] [place] [address] Apr, 2013 [facility] [address] [id number] [address] Apr, 2013 [facility] [place] [address] [place] [address] Apr, 2013 [facility] [address] [place] [id number] [address] Apr, 2013 [facility] [address] [id number] [address] Apr, 2013 [facility] [place] [address] [place] [address] 08 Apr, 2013 [facility] [place] [address] [place] [address] 08 Apr, 2013 [facility] [address] [id number] [address] Apr, 2013 [facility] [place] [facility] [address] [id number] [address] 08 Apr, 2013 [facility] [place] [address] [place] [address] Mar, [facility] [place] [facility] [id number], [place] [address] Mar, [facility] [place] [address] [place] [address] Mar, [facility] [address] [id number], [place] [address] Mar, [facility] [place] [address] [place] [address] Feb, [facility] [address]65[address], [place] [address] Feb, [facility] [place] [address] [place] [address] December, [facility] [address], [place] [address] December, [facility] [place] [address] [place] [address] December, [facility] [address]65[address], [place] [address] December, [facility] [place] [address] [place] [address] Nov, [facility] [address] [id number], [place] [address] Nov, [facility] [place] [address] [place] [address] Nov, [facility] [address]65[address], [place] [address] Nov, [facility] [place] [address] [place] [address] Nov, [facility] [id number], [place] [address] Nov, [facility] [address], [place] [address] Oct, [facility] [address], [place] [address] Oct, [facility] [address] [id number] [place] [address] Aug, [facility] [address] [facility] [id number] [place] [address] Aug, Justine [facility] [address] [facility] [place] [address] Aug, [facility] [address] [facility] [id number] [place] [address] Aug, [facility] [address] [facility] [id number] [place] [address] Aug, [facility] [address] [facility] [id number] [place] [address] Aug, Just[facility] [address] [facility] [place] [address] Jul, [facility] [id number] [place] [address] Jul, [facility] [address] [facility] [id number] [place] [address] Jul, [facility] [address] [place] [id number] [place] [address] Jul, [facility] [address] [facility] [id number] [place] [address] Jun, [facility] [address] [id number] [place] [address] Jun, [facility] [address] [facility] [id number] [place] [address] Jun, [facility] [address] [facility] [id number] [place] [address] Jun, [facility] [address] [facility] [id number] [place] [address] Jun, [facility] [address] [facility] [id number] [place] [address] Jun, [facility] [place] [facility] [address] [id number] [place] [address] 07 Jun, 2013 [facility] [place] [facility] [address] [id number] [place] [address] Jun, [facility] [place] [facility] [address] [id number] [place] [address] 06 Jun, 2013 [facility] [place] [facility] [address] [id number] [place] [address] May, [facility] [place] [facility] [address] [id number] [place] [address] 18 May, 2013 [facility] [place] [facility] [address] [id number] [place] [address] May, [facility] [place] [facility] [address] [id number] [place] [address] 16 May, 2013 [facility] [place] [facility] [address] [id number] [place] [address] May, [facility] [place] [facility] [address] [id number] [place] [address] May, [facility] [place] [facility] [address] [id number], [place] [address] May, [facility] [place] [facility] [address] [id number], [place] [address] Apr, [facility] [place] [facility] [address] [id number], [place] [address] Mar, [facility] [place] [facility] [address] [id number] [place] [address] Mar, [facility] [place] [facility] [address] [id number] [place] [address] Mar, [facility] [place] [facility] [address] [id number], [place] [address] Mar, [facility] [place] [facility] [address] [id number], [place] [address] 16 Feb, 2013 [facility] [address] [facility] [id number], [place] [address] Feb, [facility] [address] [facility] [id number], [place] [address] Feb, [facility] [address] [id number], [place] [address] Feb, [facility] [address] [facility] [id number], [place] [address] Feb, [facility] [address] [facility] [id number] [address] Feb, [facility] [address], [place] [address] Jan, [facility] [address], [place] [address] Jan, [facility] ([facility] [id number], [place] [address] Jan, [facility] ([facility] [id number] [address] Jan, IMMUNIZATIONS No Known Immunizations SOCIAL HISTORY Never Assessed REASON FOR VISIT [facility] PLAN OF CARE VITAL SIGNS MEDICATIONS Medication Instructions Dosage Frequency Start Date End Date Duration Status Aspirin 81 mg 1 tablet by Oral route 1 time per day Jan, Active Crestor 40 mg 1 tablet by Oral route 1 time per day Apr, Active Toprol XL 100 mg take 1 tablet by Oral route 1 time per day Aug, Active Bactrim DS 800-160 mg 1 tablet by Oral route 2 times per day for 10 day(s) Jun, Active metformin 1,000 mg take 1 tablet by Oral route 2 times per day Jul, Active prazosin 2 mg Take 1 Capsule by Oral route 1 time per day at bedtime for nightmares and sleeplessness Jul, Active Cymbalta 60 mg 1 Capsule by Oral route 1 time per day Nov, Active Requip 0.5 mg 3 tablet by Oral route 1 time per day 1-3 hours before HS 20 Aug, 2014 Active Lipofen 150 mg take 1 capsule (150 mg) by oral route once daily with food Apr, Active RESULTS No Results PROCEDURES No Known procedures INSTRUCTIONS MEDICATIONS ADMINISTERED No Known Medications MEDICAL (GENERAL) HISTORY Type Description Date Medical History Atherosclerotic heart disease of [place] coronary artery without angina pectoris Medical History [...]
--- OUTSIDE RECORDS SUMMARY | 2019-02-01 09:04 | XMS REPORT ---
Author Author SJ ALY [facility] [address] [place] [address] Care Team Providers Care Safety Sealer Name Role Phone SJ ALY Unavailable PROBLEMS Type Condition ICD9-CM Code UZM98-HO Code Onset Dates Condition Status SNOMED Code Problem Type 2 diabetes mellitus with hyperglycemia E11.65 Active 894887728066323 Problem Restless legs syndrome G25.81 Active 77917902 Problem Type 2 diabetes mellitus with diabetic neuropathy, unspecified E11.40 Active 2060782212499 Problem Lumbago with sciatica, right side M54.41 Active 215913641396433 Problem Lumbago with sciatica, left side M54.42 Active 475055903 Problem DM neuro manif type II E11.40 Active 865737732 Problem Fibromyalgia M79.7 Active 323016234 Problem Chronic obstructive pulmonary disease, unspecified COPD type J44.9 Active 73562923 Problem Essential hypertension I10 Active 21484026 Problem Coronary atherosclerosis of unspecified type of vessel, [place]or[place] or graft 414.00 Active 832251523 Problem Depressive disorder, not elsewhere classified 311 Active 89077691 Problem Solitary pulmonary nodule 793.11 Active 812794984 Problem Unspecified hypertrophic and atrophic condition of skin 701.9 Active 930678569 Problem Type 2 diabetes mellitus without complication E11.9 Active 17039947 Problem Cardiac murmur, unspecified R01.1 Active 851059760 Problem Hypomagnesemia 275.2 Active 007760132 Problem Essential (primary) hypertension I10 Active 31029751 Problem Diabetic neuropathy 250.60 Active 608392535 Problem Pure hyperglyceridemia E78.1 Active 163749633 ALLERGIES No Information ENCOUNTERS Encounter Location Date Diagnosis [facility] [address] [place] [address] [place] [address] Jul, [facility] [address] [place] [address] Jul, [facility] [address] [place] [address] Jun, Screening for breast cancer Z12.31 [facility] [address] [address] May, Essential (primary) hypertension I10 [facility] [address] [address] May, Type 2 diabetes mellitus with hyperglycemia E11.65 and Restless legs syndrome G25.[address] [facility] [address] [place] [address] Apr, Lumbago with sciatica, left side M54.42 ; Lumbago with sciatica, right side M54.41 and Restless legs syndrome G25.[address] [facility] [address] [place] [address] Mar, [facility] [address] [place] [address] Feb, Restless legs syndrome G25.81 and Fibromyalgia M79.7 [facility] [address] [place] [address] Feb, Essential hypertension I10 and Type 2 diabetes mellitus with hyperglycemia E11.65 [facility] [address] [place] [address] Feb, Essential (primary) hypertension I10 and Exposure to hepatitis C Z20.[address] [facility] [address] [address] Jan, [facility] [address] [address] Jan, [facility] [address] [address] Jan, [facility] [place] [address] [place] [address] Jan, [facility] [address] [place] [address] Jan, [facility] [place] [address] [place] [address] Jan, [facility] [address] [place] [address] December, Essential (primary) hypertension I10 [facility] [place] [address] [place] [address] December, Restless legs syndrome G25.81 [facility] [place] [address] [place] [address] December, Restless legs syndrome G25.81 [facility] [place] [address] [place] [address] December, Restless legs syndrome G25.81 [facility] [place] [address] [place] [address] December, Restless legs syndrome G25.81 [facility] [place] [address] [place] [address] Nov, [facility] [place] [address] [place] [address] Nov, Type 2 diabetes mellitus with hyperglycemia E11.65 [facility] [address] [facility] [id number] [address] Nov, Essential hypertension I10 [facility] [place] [address] [place] [address] Oct, Restless legs syndrome G25.81 [facility] [place] [address] [place] [address] Aug, Type 2 diabetes mellitus with hyperglycemia E11.65 ; Restless legs syndrome G25.81 ; Fibromyalgia M79.7 ; Essential hypertension I10 and Urinary urgency R39.15 [facility] [place] [address] [place] [address] May, [facility] [place] [address] [place] [address] 16 May, 2017 Type 2 diabetes mellitus with hyperglycemia E11.65 [facility] [place] [address] [place] [address] 10 May, 2017 [facility] [place] [address] [place] [address] 19 Apr, 2017 Type 2 diabetes mellitus with hyperglycemia E11.65 [facility] [place] [address] [place] [address] 15 Apr, 2017 [facility] [place] [address] [place] [address] Apr, Hospital discharge follow-up Z09 ; Cardiac murmur, unspecified R01.1 ; Tobacco abuse Z72.0 and Chronic obstructive pulmonary disease, unspecified COPD type J44.9 [facility] [address] [place] [address] Mar, Type 2 diabetes mellitus with hyperglycemia E11.65 [facility] [place] [address] [place] [address] Feb, Type 2 diabetes mellitus with hyperglycemia E11.65 and Essential hypertension I10 [facility] [address] [place] [address] Feb, Restless legs syndrome G25.81 ; Type 2 diabetes mellitus with hyperglycemia E11.65 ; Essential hypertension I10 and Right upper quadrant pain R10.11 [facility] [address] [place] [address] Feb, [facility] [place] [address] [place] [address] Feb, [facility] [address] [place] [address] Jan, Type 2 diabetes mellitus with hyperglycemia E11.65 and Right sided abdominal pain R10.9 [facility] [address] [place] [address] Jan, nancy[facility]CS[facility]ER[facility] [address] [address] Jan, Nausea R11.0 ; Essential hypertension I10 and Dizziness R42 [facility] [place] [address] [place] [address] Jan, [facility] [place] [address] [place] [address] Nov, [facility] [place] [address] [place] [address] Nov, [facility] [place] [address] [place] [address] Oct, [facility] [place] [address] [place] [address] Oct, [facility] [place] [address] [place] [address] Oct, [facility] [address] [place] [address] Sep, [facility] [address] [facility] [id number] [place] [address] Sep, Ganglion of tendon M67.40 and DM neuro manif type II E11.40 [facility] [place] [address] [place] [address] Aug, Pure hyperglyceridemia E78.1 [facility] [place] [address] [place] [address] Aug, [facility] [place] [address] [place] [address] Aug, [facility] [place] [address] [place] [address] Aug, [facility] [address] [place] [address] Aug, Fibromyalgia M79.7 [facility] [address] [place] [address] Aug, [facility] [address] [address] Aug, Fibromyalgia M79.7 [facility] [address] [place] [address] Aug, Fibromyalgia M79.7 ; Mass of right foot R22.41 and Type 2 diabetes mellitus with hyperglycemia E11.65 [facility] [place] [address] [place] [address] Jun, [facility] [address] [place] [address] Jun, Furuncle L02.92 and Methicillin resistant Staph aureus culture positive Z22.322 [facility] [address] [address] Jun, Furuncle L02.92 ; Cellulitis of other specified site L03.818 and Methicillin resistant Staph aureus culture positive Z22.322 [facility] [address] [address] Jun, [facility] [address] [place] [address] Jun, Furuncle L02.92 and Cellulitis of other specified site L03.818 [facility] [address] [place] [address] May, Pure hyperglyceridemia E78.1 ; Abscess L02.91 ; Restless legs syndrome G25.81 and Type 2 diabetes mellitus with hyperglycemia E11.65 [facility] [address] [place] [address] May, [facility] [address] [address] May, [facility] [address] [address] May, [address] [address] Apr, [address] [address] Mar, Well woman exam Z01.419 ; Encounter for screening mammogram for breast cancer Z12.31 and History of cervical cancer Z85.[address] [address] Mar, Insect bite, multiple W57.XXXA ; Type 2 diabetes mellitus with diabetic neuropathy, unspecified E11.40 ; Essential (primary) hypertension I10 ; DM neuro manif type II E11.40 and Restless legs syndrome G25.81 [facility] [address] [place] [address] Feb, [address] [address] Feb, [address] [address] Feb, [address] [address] Jan, [address] [address] Jan, [address] [place] [address] Jan, Abscess L02.91 [facility] [place] [address] [place] [address] December, DM neuro manif type II E11.40 ; Pure hyperglyceridemia E78.1 ; Essential (primary) hypertension I10 and Type 2 diabetes mellitus without complication E11.9 [facility] [place] [address] [place] [address] Oct, [facility] [place] [address] [place] [address] Sep, [facility] [place] [address] [place] [address] Sep, [facility] [place] [address] [place] [address] Sep, [facility] [place] [address] [place] [address] Sep, Type 2 diabetes mellitus without complication E11.9 ; Pure hyperglyceridemia E78.1 ; Cardiac murmur, unspecified R01.1 and Essential (primary) hypertension I10 [facility] [place] [address] [place] [address] Aug, [facility] [place] [address] [place] [address] Jul, [facility] [place] [address] [place] [address] Jul, [facility] [place] [address] [place] [address] Jun, [facility] [place] [address] [place] [address] Jun, [facility] [place] [address] [place] [address] May, [facility] [place] [address] [place] [address] May, [facility] [place] [address] [place] [address] May, [facility] [place] [address] [place] [address] May, [facility] [address] [place] [address] May, [facility] [address] [place] [address] May, [facility] [address] [place] [address] Apr, Onychomycosis 110.1 [facility] [address] [place] [address] 15 Apr, 2015 [facility] [address] [place] [address] 14 Apr, 2015 Nail dystrophy 703.[address] [address] 08 Apr, 2015 Ingrown nail 703.[address] [address] Apr, Ingrown nail 703.[address] [address] Mar, [address] [address] Mar, Diabetic neuropathy 250.60 ; Fibromyalgia 729.1 and Lumbago 724.[address] [address] Mar, [address] [address] Jan, Diabetes mellitus without mention of complication, type II or unspecified type, uncontrolled 250.02 and Hypomagnesemia 275.2 [facility] [address] [place] [address] Jan, [facility] [address] [place] [address] Jan, Coronary atherosclerosis of unspecified type of vessel, [place] or graft 414.00 ; Essential hypertension, benign 401.1 ; Other and unspecified hyperlipidemia 272.4 ; Diabetes mellitus without mention of complication, type II or unspecified type, uncontrolled 250.02 ; Depressive disorder, not elsewhere classified 311 and Restless legs syndrome [RLS] 333.94 [facility] [place] [address] [place] [address] Jan, [facility] [place] [address] [place] [address] December, Sciatica 724.3 ; Muscle spasm 728.85 ; UTI (urinary tract infection) 599.0 and Dysuria 788.1 [facility] [place] [address] [place] [address] December, [facility] [place] [address] [place] [address] December, Scabies 133.0 and Leg pain 729.5 [place] [id number] [place] [address] Nov, [place] [id number] [place] [address] Nov, [facility] [place] [address] [place] [address] Aug, [facility] [address] [place] [id number] [place] [address] Aug, [facility] [place] [address] [place] [address] Jul, [facility] [address] [place] [id number] [place] [address] Jul, [facility] [place] [address] [place] [address] Jul, [facility] [address] [place] [id number] [place] [address] Jul, [facility] [place] [address] [place] [address] Jul, [facility] [address] [place] [address] [place] [address] Jul, [facility] [place] [address] [place] [address] Jun, [facility] [address] [place] [id number] [place] [address] Jun, [facility] [place] [address] [place] [address] Jun, [facility] [id number] [address] Jun, [facility] [place] [address] [place] [address] May, [facility] [id number] [place] [address] May, [facility] [id number] [place] [address] Apr, [facility] [id number] [place] [address] 29 Apr, 2014 [facility] [place] [address] [place] [address] Apr, [facility] [id number] [place] [address] Apr, [facility] [place] [address] [place] [address] Apr, [facility] [id number] [place] [address] Apr, [facility] [address] [id number] [address] Apr, [facility] [place] [address] [place] [address] 18 Apr, 2014 [facility] [place] [facility] [address] [id number] [address] 18 Apr, 2014 [facility] [place] [address] [place] [address] Apr, [facility] [address] [id number] [address] Apr, [facility] [address] [id number], [place] [address] 10 Apr, 2013 [facility] [place] [address] [place] [facility] [place] [address] Apr, [facility] [place] [address] [place] [address] Apr, [facility] [address] [facility] [id number] [address] Apr, [facility] [place] [address] [id number] [address] Apr, [facility] [place] [address] [place] [address] Mar, [facility] [address] [id number] [address] Mar, [facility] [place] [address] [place] [address] Mar, [facility] [address] [id number] [address] Mar, [facility] [place] [address] [place] [address] Feb, [facility] [address] [id number] [address] Feb, [facility] [place] [address] [place] [address] December, [facility] [address] [id number] [address] December, [facility] [place] [address] [place] [address] December, [facility] [address] [id number] [address] December, [facility] [place] [address] [place] [address] Nov, [facility] [id number] [place] [address] Nov, [facility] [place] [address] [place] [address] Nov, [facility] [address]100[place] [address] Nov, [facility] [place] [address] [place] [address] Nov, [facility] [address] [facility] [id number] [address] Nov, [facility] [address]65100[place] [address] Oct, [facility] [address] [facility] [id number] [address] Oct, [facility] [address] [id number] [address] Aug, [facility] [address]65[address] [address] Aug, [facility] [place] [address] [place] [address] Aug, [facility] [address] [address] Aug, [facility] [address] [address] Aug, [facility] [address]100[place] [address] Aug, [facility] [place] [address] [place] [address] Jul, [facility] [address] [id number] [address] Jul, [facility] [address] [id number] [address] Jul, [facility] [address] [id number] [address] Jul, [facility] [place] [facility] [address] [id number] [address] Jun, [facility] [address] [place] [address] 12 Jun, 2013 [facility] [address] [id number] [place] [address] 12 Jun, 2013 [facility] [place] [facility] [address] [id number] [place] [address] 08 Jun, 2013 [facility] [address] [id number] [place] [address] 08 Jun, 2012 [facility] [place] [facility] [address] [id number] [place] [address] 07 Jun, 2012 [facility] [place] [facility] [address] [id number] [place] [address] 07 Jun, 2013 [facility] [place] [facility] [address] [id number] [place] [address] 06 Jun, 2013 [facility] [place] [facility] [address] [id number] [place] [address] 06 Jun, 2013 [facility] [address] [id number] [place] [address] 18 May, 2013 [facility] [place] [facility] [address] [id number] [place] [address] 18 May, 2013 [facility] [address] [facility] [id number] [place] [address] 16 May, 2013 [facility] [place] [facility] [address] [id number] [place] [address] 16 May, 2013 [facility] [place] [facility] [address] [id number] [address] 14 May, 2013 [facility] [place] [facility] [address] [id number] [place] [address] 14 May, 2013 [facility] [place] [facility] [address] [id number] [place] [address] 04 May, 2013 [facility] [place] [facility] [address] [id number] [place] [address] Apr, [facility] [address] [facility] [id number] [address] Mar, [facility] [address] [facility] [id number][place] [address] Mar, [facility] [address] [facility] [id number] [address] Mar, [facility] [address] [facility] [id number], [place] [address] Mar, [facility] [address] [facility] [id number] [address] Feb, [facility] [address] [facility] [id number] [address] Feb, [facility] [address] [address] Feb, [facility] [address]100[place] [address] Feb, [facility] [address] [address] Feb, [facility] [id number] [address] Feb, [facility] [id number] [address] Jan, [facility] [id number] [address] Jan, [facility] [id number] [address] Jan, [facility] [id number] [address] Jan, IMMUNIZATIONS No Known Immunizations SOCIAL HISTORY Never Assessed REASON FOR VISIT Repository Atorvastatin PLAN OF CARE VITAL SIGNS MEDICATIONS Unknown Medications RESULTS No Results PROCEDURES No Known procedures INSTRUCTIONS MEDICATIONS ADMINISTERED No Known Medications MEDICAL (GENERAL) HISTORY Type Description Date Medical History Atherosclerotic heart disease of [place] coronary artery without angina pectoris Medical History [...]
--- OUTSIDE RECORDS SUMMARY | 2019-02-01 09:04 | XMS REPORT ---
Author Author ANGELIQUE PHILLIPS [facility] [address] [facility] Address [address] [place] [address] Care Team Providers Care Commercial Artist Lettering Name Role Phone ANGELIQUE PHILLIPS Unavailable PROBLEMS Type Condition ICD9-CM Code VNR57-FO Code Onset Dates Condition Status SNOMED Code Problem Type 2 diabetes mellitus with hyperglycemia E11.65 Active 729295880311232 Problem Restless legs syndrome G25.81 Active 25078970 Problem Type 2 diabetes mellitus with diabetic neuropathy, unspecified E11.40 Active 8072067836483 Problem Lumbago with sciatica, right side M54.41 Active 855885124185638 Problem Lumbago with sciatica, left side M54.42 Active 541553023 Problem DM neuro manif type II E11.40 Active 707785789 Problem Fibromyalgia M79.7 Active 353986318 Problem Chronic obstructive pulmonary disease, unspecified COPD type J44.9 Active 90268841 Problem Essential hypertension I10 Active 38149564 Problem Coronary atherosclerosis of unspecified type of vessel, [place] or graft 414.00 Active 377215162 Problem Depressive disorder, not elsewhere classified 311 Active 60772868 Problem Solitary pulmonary nodule 793.11 Active 033965829 Problem Unspecified hypertrophic and atrophic condition of skin 701.9 Active 418212369 Problem Type 2 diabetes mellitus without complication E11.9 Active 60227070 Problem Cardiac murmur, unspecified R01.1 Active 973100428 Problem Hypomagnesemia 275.2 Active 115204715 Problem Essential (primary) hypertension I10 Active 05227516 Problem Diabetic neuropathy 250.60 Active 287762331 Problem Pure hyperglyceridemia E78.1 Active 425158286 ALLERGIES Substance Reaction Event Type Date Status Hydrocodone-Acetaminophen itching Drug Allergy Jun, Active Acetaminophen-Codeine #3 itching Drug Allergy Jun, Active ENCOUNTERS Encounter Location Date Diagnosis [facility] [address] [place] [address] [place] [address] Jun, Screening for breast cancer Z12.31 [facility] [address] [place] [address] [place] [address] May, Essential (primary) hypertension I10 [facility] [address] [address] [place] [address] May, Type 2 diabetes mellitus with hyperglycemia E11.65 and Restless legs syndrome G25.81 [facility] [address] [place] [address] Apr, Lumbago with sciatica, left side M54.42 ; Lumbago with sciatica, right side M54.41 and Restless legs syndrome G25.81 [facility] [address] [address] [place] [address] Mar, [facility] [address] [facility] [address] [place] [address] Feb, Restless legs syndrome G25.81 and Fibromyalgia M79.7 [facility] [address] [place] [address] [place] [address] Feb, Essential hypertension I10 and Type 2 diabetes mellitus with hyperglycemia E11.[address] [facility] [address] [place] [address] Feb, Essential (primary) hypertension I10 and Exposure to hepatitis C Z20.[address] [facility] [address] [address] Jan, [facility] [place] [address] [place] [address] Jan, [facility] [place] [address] [place] [address] Jan, [facility] [place] [address] [place] [address] Jan, [facility] [place] [address] [place] [address] Jan, [facility] [place] [address] [place] [address] Jan, [facility] [place] [address] [place] [address] December, Essential (primary) hypertension I10 [facility] [place] [address] [place] [address] December, Restless legs syndrome G25.81 [facility] [place] [address] [place] [address] December, Restless legs syndrome G25.81 [facility] [place] [address] [place] [address] December, Restless legs syndrome G25.81 [facility] [place] [address] [place] [address] December, Restless legs syndrome G25.81 [facility] [place] [address] [place] [address] Nov, [facility] [place] [address] [place] [address] Nov, Type 2 diabetes mellitus with hyperglycemia E11.65 [facility] [address] [facility] [id number] [place] [address] Nov, Essential hypertension I10 [facility] [place] [address] [place] [address] Oct, Restless legs syndrome G25.81 [facility] [place] [address] [place] [address] Aug, Type 2 diabetes mellitus with hyperglycemia E11.65 ; Restless legs syndrome G25.81 ; Fibromyalgia M79.7 ; Essential hypertension I10 and Urinary urgency R39.15 [facility] [place] [address] [place] [address] 30 May, 2017 [facility] [place] [address] [place] [address] 16 May, 2017 Type 2 diabetes mellitus with hyperglycemia E11.65 [facility] [place] [address] [place] [address] May, [facility] [place] [address] [place] [address] 19 Apr, 2017 Type 2 diabetes mellitus with hyperglycemia E11.65 [facility] [place] [address] [place] [address] 15 Apr, 2017 [facility] [place] [address] [place] [address] 11 Apr, 2017 Hospital discharge follow-up Z09 ; Cardiac murmur, unspecified R01.1 ; Tobacco abuse Z72.0 and Chronic obstructive pulmonary disease, unspecified COPD type J44.9 [facility] [place] [address] [place] [address] Mar, Type 2 diabetes mellitus with hyperglycemia E11.65 [facility] [place] [address] [place] [address] Feb, Type 2 diabetes mellitus with hyperglycemia E11.65 and Essential hypertension I10 [facility] [place] [address] [place] [address] Feb, Restless legs syndrome G25.81 ; Type 2 diabetes mellitus with hyperglycemia E11.65 ; Essential hypertension I10 and Right upper quadrant pain R10.11 [facility] [place] [address] [place] [address] Feb, [facility] [place] [address] [place] [address] Feb, [facility] [place] [address] [place] [address] Jan, Type 2 diabetes mellitus with hyperglycemia E11.65 and Right sided abdominal pain R10.9 [facility] [place] [address] [place] [address] Jan, [facility] [place] [address] [place] [address] Jan, Nausea R11.0 ; Essential hypertension I10 and Dizziness R42 [facility] [place] [address] [place] [address] Jan, [facility] [place] [address] [place] [address] Nov, [facility] [place] [address] [place] [address] Nov, [facility] [place] [address] [place] [address] Oct, [facility] [place] [address] [place] [address] Oct, [facility] [place] [address] [place] [address] Oct, [facility] [place] [address] [place] [address] Sep, [facility] [address] [facility] [id number] [place] [address] Sep, Ganglion of tendon M67.40 and DM neuro manif type II E11.40 [facility] [place] [address] [place] [address] Aug, Pure hyperglyceridemia E78.1 [facility] [place] [address] [place] [address] Aug, [facility] [place] [address] [place] [address] Aug, [facility] [place] [address] [place] [address] Aug, [facility] [place] [address] [place] [address] Aug, Fibromyalgia M79.7 [facility] [place] [address] [place] [address] Aug, [facility] [place] [address] [place] [address] Aug, Fibromyalgia M79.7 [facility] [address] [address] Aug, Fibromyalgia M79.7 ; Mass of right foot R22.41 and Type 2 diabetes mellitus with hyperglycemia E11.65 [facility] [place] [address] [place] [address] Jun, [facility] [place] [address] [place] [address] Jun, Furuncle L02.92 and Methicillin resistant Staph aureus culture positive Z22.322 [facility] [place] [address] [place] [address] Jun, Furuncle L02.92 ; Cellulitis of other specified site L03.818 and Methicillin resistant Staph aureus culture positive Z22.322 [facility] [place] [address] [place] [address] Jun, [facility] [place] [address] [place] [address] Jun, Furuncle L02.92 and Cellulitis of other specified site L03.[address] [address] May, Pure hyperglyceridemia E78.1 ; Abscess L02.91 ; Restless legs syndrome G25.81 and Type 2 diabetes mellitus with hyperglycemia E11.[address] [address] May, [address] [address] May, [facility] [address] [address] May, [facility] [address] [address] Apr, [address] [address] Mar, Well woman exam Z01.419 ; Encounter for screening mammogram for breast cancer Z12.31 and History of cervical cancer Z85.[address] [address] Mar, Insect bite, multiple W57.XXXA ; Type 2 diabetes mellitus with diabetic neuropathy, unspecified E11.40 ; Essential (primary) hypertension I10 ; DM neuro manif type II E11.40 and Restless legs syndrome G25.[address] [address] Feb, [address] [address] Feb, [address] [address] Feb, [address] [address] Jan, [address] [address] Jan, [address] [address] Jan, Abscess L02.91 [facility] [place] [address] [place] [address] December, DM neuro manif type II E11.40 ; Pure hyperglyceridemia E78.1 ; Essential (primary) hypertension I10 and Type 2 diabetes mellitus without complication E11.9 [facility] [place] [address] [place] [address] Oct, [facility] [place] [address] [place] [address] Sep, [facility] [place] [address] [place] [address] Sep, [facility] [place] [address] [place] [address] Sep, [facility] [place] [address] [place] [address] Sep, Type 2 diabetes mellitus without complication E11.9 ; Pure hyperglyceridemia E78.1 ; Cardiac murmur, unspecified R01.1 and Essential (primary) hypertension I10 [facility] [place] [address] [place] [address] Aug, [facility] [place] [address] [place] [address] Jul, [facility] [place] [address] [place] [address] Jul, [facility] [place] [address] [place] [address] Jun, [facility] [place] [address] [place] [address] Jun, [facility] [place] [address] [place] [address] May, [facility] [place] [address] [place] [address] May, [facility] [place] [address] [place] [address] May, [facility] [place] [address] [place] [address] May, [facility] [place] [address] [place] [address] May, [facility] [address] [place] [address] May, [address] [address] Apr, Onychomycosis 110.[address] [address] Apr, [facility] [place] [address] [place] [address] Apr, Nail dystrophy 703.[address] [address] 08 Apr, 2015 Ingrown nail 703.[address] [address] Apr, Ingrown nail 703.[address] [address] Mar, [address] [address] Mar, Diabetic neuropathy 250.60 ; Fibromyalgia 729.1 and Lumbago 724.[address] [address] Mar, [address] [address] Jan, Diabetes mellitus without mention of complication, type II or unspecified type, uncontrolled 250.02 and Hypomagnesemia 275.[address] [address] Jan, [address] [address] Jan, Coronary atherosclerosis of unspecified type of vessel, [place] or graft 414.00 ; Essential hypertension, benign 401.1 ; Other and unspecified hyperlipidemia 272.4 ; Diabetes mellitus without mention of complication, type II or unspecified type, uncontrolled 250.02 ; Depressive disorder, not elsewhere classified 311 and Restless legs syndrome [RLS] 333.94 [facility] [address] [place] [address] Jan, [facility] [place] [address] [place] [address] December, Sciatica 724.3 ; Muscle spasm 728.85 ; UTI (urinary tract infection) 599.0 and Dysuria 788.1 [facility] [place] [address] [place] [address] December, [facility] [place] [address] [place] [address] December, Scabies 133.0 and Leg pain 729.5 [facility] [address], [place] [address] Nov, [facility] [address] [place] [address] Nov, [facility] [place] [address] [place] [address] Aug, [facility] [address], [place] [address] Aug, [facility] [place] [address] [place] [address] Jul, [facility] [address], [place] [address] Jul, [facility] [place] [address] [place] [address] Jul, [facility] [address], [place] [address] Jul, [facility] [place] [address] [place] [address] Jul, [facility] [address] [place] [id number], [place] [address] Jul, [facility] [place] [address] [place] [address] Jun, [facility] [address], [place] [address] Jun, [facility] [place] [address] [place] [address] Jun, [facility] [place] [facility] [address] [id number], [place] [address] Jun, [facility] [place] [address] [place] [address] May, [facility] [place] [facility] [address] [place] [id number], [place] [address] May, [facility] [place] [facility] [address] [place] [id number] [place] [address] Apr, 2013 [facility] [place] [facility] [address] [place] [id number] [place] [address] 29 Apr, 2013 [facility] [place] [address] [place] [address] Apr, [facility] [place] [facility] [address] [place] [id number] [place] [address] Apr, 2013 [facility] [place] [address] [place] [address] Apr, 2013 [facility] [place] [facility] [address] [place] [id number] [place] [address] Apr, [facility] [place] [facility] [id number], [place] [address] Apr, [facility] [place] [address] [place] [address] 18 Apr, 2014 [facility] [place] [facility] [id number], [place] [address] 18 Apr, 2013 [facility] [place] [address] [place] [address] 12 Apr, 2013 [facility] [place] [facility] [id number], [place] [address] 12 Apr, 2013 [facility] [place] [facility] [id number], [place] [address] 10 Apr, 2013 [facility] [place] [address] [place] [address] Apr, [facility] [place] [address] [place] [address] Apr, [facility] [address], [place] [address] Apr, [facility] [address], [place] [address] Apr, [facility] [place] [address] [place] [address] Mar, [facility] [address], [place] [address] Mar, [facility] [place] [address] [place] [address] Mar, [facility] [address], [place] [address] Mar, [facility] [place] [address] [place] [address] Feb, [facility] [address], [place] [address] Feb, [facility] [place] [address] [place] [address] December, [facility] [address], [place] [address] December, [facility] [place] [address] [place] [address] December, [facility] [address], [place] [address] December, [facility] [place] [address] [place] [address] Nov, [facility] [address], [place] [address] Nov, [facility] [place] [address] [place] [address] Nov, [facility] [address], [place] [address] Nov, [facility] [place] [address] [facility] [place] [address] Nov, [facility] [address] [facility] [id number] [place] [address] Nov, [facility] [address] [facility] [id number] [place] [address] Oct, [facility] [address] [id number] [place] [address] Oct, [facility] [address] [id number] [place] [address] Aug, [facility] [address] [id number] [place] [address] Aug, [facility] [place] [address] [facility] [place] [address] Aug, [facility] [address] [place] [id number] [place] [address] Aug, [facility] [address] [id number] [place] [address] Aug, [facility] [address] [id number] [place] [address] Aug, [facility] [place] [address] [facility] [place] [address] Jul, [facility] [address] [place] [id number] [place] [address] Jul, [facility] [address] [address] [id number] [place] [address] Jul, [facility] [id number] [place] [address] Jul, [facility] [address] [facility] [id number] [place] [address] Jun, [facility] [id number], [place] [address] Jun, [facility] [place] [facility] [address] [id number] [place] [address] 12 Jun, 2013 [facility] [place] [facility] [address] [id number] [place] [address] 08 Jun, 2013 [facility] [place] [facility] [address] [id number] [place] [address] 08 Jun, 2013 [facility] [place] [facility] [address] [id number] [place] [address] 07 Jun, 2013 [facility] [place] [facility] [address] [id number] [place] [address] 07 Jun, 2013 [facility] [place] [facility] [address] [id number] [place] [address] Jun, [facility] [place] [facility] [address] [id number] [place] [address] Jun, [facility] [place] [facility] [address] [id number], [place] [address] 18 May, 2013 [facility] [place] [facility] [address] [id number] [place] [address] 18 May, 2013 [facility] [place] [facility] [address] [id number], [place] [address] 16 May, 2013 [facility] [place] [facility] [address] [id number], [place] [address] 16 May, 2013 [facility] [place] [facility] [address] [id number], [place] [address] 14 May, 2013 [facility] [place] [facility] [address] [id number], [place] [address] 14 May, 2013 [facility] [place] [facility] [address] [id number], [place] [address] 04 May, 2013 [facility] [place] [facility] [address] [id number], [place] [address] 04 Apr, 2013 [facility] [place] [facility] [address] [id number], [place] [address] Mar, [facility] [address] [facility] [id number], [place] [address] Mar, [facility] [address] [facility] [id number], [place] [address] Mar, [facility] [id number], [place] [address] Mar, [facility] [address] [facility] [id number], [place] [address] Feb, [facility] [address] [facility] [id number], [place] [address] Feb, [facility] [address] [facility] [id number], [place] [address] Feb, [facility] [address], [place] [address] Feb, [facility] [address], [place] [address] Feb, [facility] [address], [place] [address] Feb, [facility] [id number], [place] [address] Jan, [facility] [id number], [place] [address] Jan, [facility] [id number], [place] [address] Jan, [facility] [id number], [place] [address] Jan, IMMUNIZATIONS No Known Immunizations SOCIAL HISTORY Never Assessed REASON FOR VISIT EDW breast exam only. [place] PLAN OF CARE Activity Details Follow Up prn Reason: Pending Test Mammogram, Bilateral Screening VITAL SIGNS Height 63 in 2018-06-25 Weight 157.0 lbs 2018-06-25 Temperature 97.8 degrees Fahrenheit 2018-06-25 Heart Rate 94 bpm 2018-06-25 Respiratory Rate 18 2018-06-25 BMI 27.81 kg/m2 2018-06-25 Blood pressure systolic 134 mmHg 2018-06-25 Blood pressure diastolic 72 mmHg 2018-06-25 MEDICATIONS Medication Instructions Dosage Frequency Start Date End Date Duration Status Atorvastatin Calcium 40 mg Orally Once a day 1 tablet 24h May, 90 days Active Cymbalta 60 mg Orally Once a day 2 tablets 24h Active Aspirin 81 MG Orally Once a day 1 tablet 24h Active Magnesium 250 MG Orally Once a day 1 tablet with a meal 24h Active Lisinopril 10 MG Orally Once a day 1 tablet 24h 30 days Active Advair Diskus 250-50 MCG/DOSE by inhalation route Twice a day 1 puff 12h Active Protonix 40 MG Orally Once a day 1 packet 24h Apr, 30 day(s) Active Metoprolol Tartrate 50 mg Orally Twice a day 1 tablet 12h Aug, 90 days Active PredniSONE 20 MG Orally Once a day 2 tablet 24h Apr, 5 day(s) Active Duloxetine HCl 60 mg Orally Once a day 2 capsule 24h Active MetFORMIN HCl ER 500 mg Orally 2 times a day 1 tablet with evening meal 12h Jan, 30 day(s) Active Ropinirole HCl 3 MG Orally at noon 1 tablet at noon and 2 at hs Jun, Active RESULTS No Results PROCEDURES No Known procedures INSTRUCTIONS MEDICATIONS ADMINISTERED No Known Medications MEDICAL (GENERAL) HISTORY Type Description Date Medical History Atherosclerotic heart disease of [place] coronary artery without angina pectoris Medical History [...]
--- OUTSIDE RECORDS SUMMARY | 2019-02-01 09:05 | XMS REPORT ---
Author Author [facility] [address] [place] [address] Care Team Providers Care [employer] Shift Lead Name Role Phone ALYSJ Unavailable PROBLEMS Type Condition ICD9-CM Code YIJ39-XO Code Onset Dates Condition Status SNOMED Code Problem Type 2 diabetes mellitus with hyperglycemia E11.65 Active 454652813259673 Problem Restless legs syndrome G25.81 Active 21051922 Problem Type 2 diabetes mellitus with diabetic neuropathy, unspecified E11.40 Active 2171367642409 Problem Lumbago with sciatica, right side M54.41 Active 035994405146994 Problem Lumbago with sciatica, left side M54.42 Active 594239322 Problem DM neuro manif type II E11.40 Active 943447506 Problem Fibromyalgia M79.7 Active 317362040 Problem Chronic obstructive pulmonary disease, unspecified COPD type J44.9 Active 24279300 Problem Essential hypertension I10 Active 70574002 Problem Coronary atherosclerosis of unspecified type of vessel, [place] or graft 414.00 Active 047844111 Problem Depressive disorder, not elsewhere classified 311 Active 17779635 Problem Solitary pulmonary nodule 793.11 Active 921318218 Problem Unspecified hypertrophic and atrophic condition of skin 701.9 Active 535122271 Problem Type 2 diabetes mellitus without complication E11.9 Active 85979569 Problem Cardiac murmur, unspecified R01.1 Active 287436994 Problem Hypomagnesemia 275.2 Active 357079074 Problem Essential (primary) hypertension I10 Active 35778049 Problem Diabetic neuropathy 250.60 Active 982283900 Problem Pure hyperglyceridemia E78.1 Active 485530386 ALLERGIES No Information ENCOUNTERS Encounter Location Date Diagnosis [facility] [address] [place] [address] Jun, [facility] [address] [place] [address] May, Essential (primary) hypertension I10 [facility] [address] [place] [address] May, Type 2 diabetes mellitus with hyperglycemia E11.65 and Restless legs syndrome G25.81 [facility] [address] [place] [address] Apr, Lumbago with sciatica, left side M54.42 ; Lumbago with sciatica, right side M54.41 and Restless legs syndrome G25.81 [facility] [address] [place] [address] Mar, [facility] [address] [place] [address] Feb, Restless legs syndrome G25.81 and Fibromyalgia M79.7 [facility] [address] [place] [address] Feb, Essential hypertension I10 and Type 2 diabetes mellitus with hyperglycemia E11.65 [facility] [address] [place] [address] Feb, Essential (primary) hypertension I10 and Exposure to hepatitis C Z20.[address] [facility] [address] [address] Jan, [facility] [address] [address] Jan, [facility] [address] [place] [address] Jan, [facility] [place] [address] [place] [address] Jan, [facility] [address] [place] [address] Jan, [facility] [place] [address] [place] [address] Jan, [facility] [address] [place] [address] December, Essential (primary) hypertension I10 [facility] [place] [address] [place] [address] December, Restless legs syndrome G25.81 [facility] [place] [address] [place] [address] December, Restless legs syndrome G25.81 [facility] [address] [place] [address] December, Restless legs syndrome G25.81 [address] [place] [address] December, Restless legs syndrome G25.81 [facility] [address] [place] [address] Nov, [facility] [address] [place] [address] Nov, Type 2 diabetes mellitus with hyperglycemia E11.65 [facility] [address] [facility] [id number] [place] [address] Nov, Essential hypertension I10 [address] [place] [address] Oct, Restless legs syndrome G25.81 [address] [place] [address] Aug, Type 2 diabetes mellitus with hyperglycemia E11.65 ; Restless legs syndrome G25.81 ; Fibromyalgia M79.7 ; Essential hypertension I10 and Urinary urgency R39.15 [facility] [address] [place] [address] May, innaCHCSNEERAJ [address] [address] May, Type 2 diabetes mellitus with hyperglycemia E11.65 [facility] [address] [place] [address] May, [facility] [address] [place] [address] Apr, Type 2 diabetes mellitus with hyperglycemia E11.65 [facility] [address] [place] [address] Apr, nancyCHCSNEERAJ [address] [address] Apr, Hospital discharge follow-up Z09 ; Cardiac murmur, unspecified R01.1 ; Tobacco abuse Z72.0 and Chronic obstructive pulmonary disease, unspecified COPD type J44.9 [facility] [address] [place] [address] Mar, Type 2 diabetes mellitus with hyperglycemia E11.65 [facility] [place] [address] [place] [address] Feb, Type 2 diabetes mellitus with hyperglycemia E11.65 and Essential hypertension I10 [facility] [address] [place] [address] Feb, Restless legs syndrome G25.81 ; Type 2 diabetes mellitus with hyperglycemia E11.65 ; Essential hypertension I10 and Right upper quadrant pain R10.11 [facility] [address] [place] [address] Feb, [facility] [place] [address] [place] [address] Feb, [facility] [place] [address] [place] [address] Jan, Type 2 diabetes mellitus with hyperglycemia E11.65 and Right sided abdominal pain R10.9 [facility] [place] [address] [place] [address] Jan, [facility] [place] [address] [place] [address] Jan, Nausea R11.0 ; Essential hypertension I10 and Dizziness R42 [facility] [place] [address] [place] [address] Jan, [facility] [place] [address] [place] [address] Nov, [facility] [place] [address] [place] [address] Nov, [facility] [place] [address] [place] [address] Oct, [facility] [place] [address] [place] [address] Oct, [facility] [place] [address] [place] [address] Oct, [facility] [place] [address] [place] [address] Sep, [facility] [address] [facility] [id number] [place] [address] Sep, Ganglion of tendon M67.40 and DM neuro manif type II E11.40 [facility] [address] [place] [address] Aug, Pure hyperglyceridemia E78.1 [facility] [address] [place] [address] Aug, [facility] [place] [address] [place] [address] Aug, [facility] [place] [address] [place] [address] Aug, [facility] [address] [address] Aug, Fibromyalgia M79.7 [facility] [address] [place] [address] Aug, [facility] [address] [address] Aug, Fibromy[address] M79.7 [facility] [address] [address] Aug, Fibromyalgia M79.7 ; Mass of right foot R22.41 and Type 2 diabetes mellitus with hyperglycemia E11.[address] [facility] [address] [address] Jun, [facility] [address] [address] Jun, Furuncle L02.92 and Methicillin resistant Staph aureus culture positive Z22.[address] [facility] [address] [address] Jun, Furuncle L02.92 ; Cellulitis of other specified site L03.818 and Methicillin resistant Staph aureus culture positive Z22.[address] [facility] [address] [address] Jun, [facility] [address] [address] Jun, Furuncle L02.92 and Cellulitis of other specified site L03.818 [facility] [address] [address] [place] [address] May, Pure hyperglyceridemia E78.1 ; Abscess L02.91 ; Restless legs syndrome G25.81 and Type 2 diabetes mellitus with hyperglycemia E11.65 [facility] [address] [place] [address] May, [facility] [address] [place] [address] May, [facility] [address] [place] [address] May, [facility] [address] [address] [place] [address] Apr, [facility] [address] [address] Mar, Well woman exam Z01.419 ; Encounter for screening mammogram for breast cancer Z12.31 and History of cervical cancer Z85.41 [facility] [address] [place] [address] Mar, Insect bite, multiple W57.XXXA ; Type 2 diabetes mellitus with diabetic neuropathy, unspecified E11.40 ; Essential (primary) hypertension I10 ; DM neuro manif type II E11.40 and Restless legs syndrome G25.81 [facility] [address] [place] [address] Feb, [facility] [address] [place] [address] Feb, [facility] [address] [place] [address] Feb, [facility] [address] [place] [address] Jan, [facility] [address] [place] [address] Jan, [address] [address] Jan, Abscess L02.91 [facility] [address] [place] [address] December, DM neuro manif type II E11.40 ; Pure hyperglyceridemia E78.1 ; Essential (primary) hypertension I10 and Type 2 diabetes mellitus without complication E11.9 [facility] [address] [place] [address] Oct, [facility] [address] [place] [address] Sep, [facility] [place] [address] [place] [address] Sep, [facility] [address] [place] [address] Sep, [facility] [address] [place] [address] Sep, Type 2 diabetes mellitus without complication E11.9 ; Pure hyperglyceridemia E78.1 ; Cardiac murmur, unspecified R01.1 and Essential (primary) hypertension I10 [facility] [address] [place] [address] Aug, [facility] [place] [address] [place] [address] Jul, [facility] [place] [address] [place] [address] Jul, [facility] [place] [address] [place] [address] Jun, [facility] [place] [address] [place] [address] Jun, [facility] [place] [address] [place] [address] May, [facility] [place] [address] [place] [address] May, [facility] [address] [place] [address] May, [facility] [place] [address] [place] [address] May, [facility] [place] [address] [place] [address] May, [facility] [place] [address] [place] [address] May, [facility] [address] [place] [address] 29 Apr, 2015 Onychomycosis 110.1 [facility] [address] [place] [address] 15 Apr, 2015 [facility] [address] [place] [address] 14 Apr, 2015 Nail dystrophy 703.[address] [address] 08 Apr, 2015 Ingrown nail 703.[address] [address] 04 Apr, 2015 Ingrown nail 703.[address] [address] Mar, [facility] [address] [address] Mar, Diabetic neuropathy 250.60 ; Fibromyalgia 729.1 and Lumbago 724.[address] [address] Mar, [address] [address] Jan, Diabetes mellitus without mention of complication, type II or unspecified type, uncontrolled 250.02 and Hypomagnesemia 275.[address] [address] Jan, [address] [address] Jan, Coronary atherosclerosis of unspecified type of vessel, [place] or graft 414.00 ; Essential hypertension, benign 401.1 ; Other and unspecified hyperlipidemia 272.4 ; Diabetes mellitus without mention of complication, type II or unspecified type, uncontrolled 250.02 ; Depressive disorder, not elsewhere classified 311 and Restless legs syndrome [RLS] 333.94 [facility] [address] [place] [address] Jan, [address] [address] December, Sciatica 724.3 ; Muscle spasm 728.85 ; UTI (urinary tract infection) 599.0 and Dysuria 788.1 [facility] [address] [address] [place] [address] December, [facility] [place] [address] [place] [address] December, Scabies 133.0 and Leg pain 729.5 [facility] [address], [place] [address] Nov, [facility] [id number] [place] [address] Nov, [facility] [address] [place] [address] Aug, [facility] [id number] [place] [address] Aug, [facility] [address] [place] [address] Jul, [facility] [id number] [place] [address] Jul, [facility] [address] [place] [address] Jul, [facility] [id number] [place] [address] Jul, [facility] [address] [place] [address] Jul, [facility] [address], [place] [address] Jul, [facility] [address] [place] [address] Jun, [facility] [id number] [place] [address] Jun, [facility] [place] [place] [address] Jun, [facility] [id number] [place] [address] Jun, [facility] [address] [place] [address] May, [facility] [id number], [place] [address] May, [facility] [id number], [place] [address] Apr, 2013 [facility] [id number], [place] [address] 29 Apr, 2013 [facility] [address] [place] [address] Apr, [facility] [id number] [place] [address] Apr, 2013 [facility] [address] [place] [address] Apr, [facility] [id number], [place] [address] Apr, 2013 [facility] [id number], [place] [address] Apr, 2013 [facility] [address] [place] [address] 18 Apr, 2013 [facility] [id number], [place] [address] 18 Apr, 2014 [facility] [address] [place] [address] 12 Apr, 2013 [facility] [id number], [place] [address] 12 Apr, 2013 [facility] [id number] [place] [address] 10 Apr, 2013 [facility] [address] [place] [address] 08 Apr, 2013 [facility] [place] [address] [place] [address] 08 Apr, 2013 [facility] [id number], [place] [address] Apr, [facility] [id number], [place] [address] Apr, [facility] [address] [place] [address] Mar, [facility] [id number], [place] [address] Mar, [facility] [place] [address] [place] [address] Mar, [facility] [id number], [place] [address] Mar, [facility] [place] [address] [place] [address] Feb, [facility] [address], [place] [address] Feb, [facility] [place] [address] [place] [address] December, [facility] [id number], [place] [address] December, [facility] [place] [address] [place] [address] December, [facility] [id number], [place] [address] December, [facility] [place] [address] [place] [address] Nov, [facility] [id number], [place] [address] Nov, [facility] [place] [address] [place] [address] Nov, [facility] [address], [place] [address] Nov, [facility] [place] [address] [place] [address] Nov, [facility] [address] [place] [address] Nov, [facility] [address] [facility] [id number] [place] [address] Oct, [facility] [address] [facility] 3] [id number] [place] [address] Oct, [facility] [address], [place] [address] Aug, [facility] [address] [facility] 3] [id number] [place] [address] Aug, [facility] [address] [address] [place] [address] Aug, [facility] [address], [place] [address] Aug, [facility] [address], [place] [address] Aug, [facility] [address], [place] [address] Aug, [facility] [place] [address] [place] [address] Jul, [facility] [address], [place] [address] Jul, [facility] [address], [place] [address] Jul, [facility] [id number], [place] [address] Jul, [facility] [address] [facility] 3] [id number], [place] [address] Jun, [facility] [address] [facility] 3] [id number][place] [address] Jun, [facility] [id number], [place] [address] Jun, [facility] [place] [facility] [address] [facility] 3] [id number] [place] [address] 08 Jun, 2013 [facility] [place] [facility] [address] [id number] [place] [address] 08 Jun, 2013 [facility] [place] [facility] [address] [id number] [place] [address] 07 Jun, 2013 [facility] [place] [facility] [address] [id number] [place] [address] 07 Jun, 2013 [facility] [place] [facility] [address] [id number] [place] [address] 06 Jun, 2013 [facility] [place] [facility] [address] [id number] [place] [address] 06 Jun, 2013 [facility] [place] [facility] [address] [id number] [place] [address] 18 May, 2013 [facility] [place] [facility] [address] [id number] [place] [address] 18 May, 2013 [facility] [place] [facility] [address] [id number] [place] [address] 16 May, 2013 [facility] [place] [facility] [address] [id number] [place] [address] 16 May, 2013 [facility] [place] [facility] [address] [id number] [place] [address] 14 May, 2013 [facility] [place] [facility] [address] [id number] [place] [address] 14 May, 2013 [facility] [place] [facility] [address] [id number] [place] [address] May, [facility] [place] [facility] [address] [id number] [place] [address] Apr, [facility] [place] [facility] [address] [id number] [place] [address] Mar, [facility] [place] [facility] [address] [id number] [place] [address] Mar, [facility] [id number], [place] [address] Mar, [facility] [address] [facility] 3] [id number], [place] [address] Mar, [facility] [id number], [place] [address] Feb, [facility] [address] [facility]] [id number] [address] Feb, [facility] [address] [facility] 3] [id number], [place] [address] Feb, [facility] [address], [place] [address] Feb, [facility] [address], [place] [address] Feb, [facility] [address], [place] [address] Feb, [facility] [address], [place] [address] Jan, [facility] [address], [place] [address] Jan, [facility] [id number], [place] [address] Jan, [facility] [id number], [place] [address] Jan, IMMUNIZATIONS No Known Immunizations SOCIAL HISTORY Never Assessed REASON FOR VISIT Repository Lisinopril PLAN OF CARE VITAL SIGNS MEDICATIONS Medication Instructions Dosage Frequency Start Date End Date Duration Status Lisinopril 10 MG Orally Once a day 1 tablet 24h 30 days Active RESULTS No Results PROCEDURES No Known procedures INSTRUCTIONS MEDICATIONS ADMINISTERED No Known Medications MEDICAL (GENERAL) HISTORY Type Description Date Medical History Atherosclerotic heart disease of [place] coronary artery without angina pectoris Medical History [...]
--- OUTSIDE RECORDS SUMMARY | 2019-02-01 09:06 | XMS REPORT ---
Author Author [facility] [address] Address [address] [place] [address] Care Team Providers Care Workers' Compensation Commissioner Name Role Phone ALYSJ Unavailable PROBLEMS Type Condition ICD9-CM Code KNP62-DL Code Onset Dates Condition Status SNOMED Code Problem Type 2 diabetes mellitus with hyperglycemia E11.65 Active 063816682322630 Problem Restless legs syndrome G25.81 Active 19347822 Problem Type 2 diabetes mellitus with diabetic neuropathy, unspecified E11.40 Active 3944622405672 Problem Lumbago with sciatica, right side M54.41 Active 542792082640941 Problem Lumbago with sciatica, left side M54.42 Active 469388152 Problem DM neuro manif type II E11.40 Active 050095003 Problem Fibromyalgia M79.7 Active 090752441 Problem Chronic obstructive pulmonary disease, unspecified COPD type J44.9 Active 51092077 Problem Essential hypertension I10 Active 27775178 Problem Coronary atherosclerosis of unspecified type of vessel, [place] or graft 414.00 Active 424142307 Problem Depressive disorder, not elsewhere classified 311 Active 84162545 Problem Solitary pulmonary nodule 793.11 Active 738551750 Problem Unspecified hypertrophic and atrophic condition of skin 701.9 Active 041582398 Problem Type 2 diabetes mellitus without complication E11.9 Active 15734154 Problem Cardiac murmur, unspecified R01.1 Active 781851537 Problem Hypomagnesemia 275.2 Active 567791074 Problem Essential (primary) hypertension I10 Active 86328633 Problem Diabetic neuropathy 250.60 Active 036887613 Problem Pure hyperglyceridemia E78.1 Active 373456066 ALLERGIES Substance Reaction Event Type Date Status Hydrocodone-Acetaminophen itching Drug Allergy Apr, Active Acetaminophen-Codeine #3 itching Drug Allergy Apr, Active ENCOUNTERS Encounter Location Date Diagnosis [facility] [address] [place] [address] [place] [address] May, Type 2 diabetes mellitus with hyperglycemia E11.65 and Restless legs syndrome G25.81 [facility] [place] [address] [place] [address] Apr, Lumbago with sciatica, left side M54.42 ; Lumbago with sciatica, right side M54.41 and Restless legs syndrome G25.81 [facility] [address] [place] [place] [address] Mar, [facility] [address] [place] [address] Feb, Restless legs syndrome G25.81 and Fibromyalgia M79.7 [facility] [address] [place] [address] Feb, Essential hypertension I10 and Type 2 diabetes mellitus with hyperglycemia E11.65 [facility] [address] [facility] [address] [place] [address] Feb, Essential (primary) hypertension I10 and Exposure to hepatitis C Z20.5 [facility] [address] [place] [address] Jan, [facility] [place] [address] [place] [address] Jan, [facility] [place] [address] [place] [address] Jan, [facility] [place] [address] [place] [address] Jan, [facility] [place] [address] [place] [address] Jan, [facility] [place] [address] [place] [address] Jan, [facility] [place] [address] [place] [address] December, Essential (primary) hypertension I10 [facility] [place] [address] [place] [address] December, Restless legs syndrome G25.81 [facility] [place] [address] [place] [address] December, Restless legs syndrome G25.81 [facility] [place] [address] [place] [address] December, Restless legs syndrome G25.81 [facility] [place] [address] [place] [address] December, Restless legs syndrome G25.81 [facility] [place] [address] [place] [address] Nov, [facility] [place] [address] [place] [address] Nov, Type 2 diabetes mellitus with hyperglycemia E11.65 [facility] [address] [facility] [id number] [place] [address] Nov, Essential hypertension I10 [facility] [place] [address] [place] [address] Oct, Restless legs syndrome G25.81 [facility] [place] [address] [place] [address] Aug, Type 2 diabetes mellitus with hyperglycemia E11.65 ; Restless legs syndrome G25.81 ; Fibromyalgia M79.7 ; Essential hypertension I10 and Urinary urgency R39.15 [facility] [place] [address] [place] [address] May, [facility] [place] [address] [place] [address] May, Type 2 diabetes mellitus with hyperglycemia E11.65 [facility] [place] [address] [place] [address] May, [facility] [place] [address] [place] [address] Apr, Type 2 diabetes mellitus with hyperglycemia E11.65 [facility] [place] [address] [place] [address] Apr, [facility] [place] [address] [place] [address] Apr, Hospital discharge follow-up Z09 ; Cardiac murmur, unspecified R01.1 ; Tobacco abuse Z72.0 and Chronic obstructive pulmonary disease, unspecified COPD type J44.9 [facility] [place] [address] [place] [address] Mar, Type 2 diabetes mellitus with hyperglycemia E11.65 [facility] [place] [address] [place] [address] Feb, Type 2 diabetes mellitus with hyperglycemia E11.65 and Essential hypertension I10 [facility] [place] [address] [place] [address] Feb, Restless legs syndrome G25.81 ; Type 2 diabetes mellitus with hyperglycemia E11.65 ; Essential hypertension I10 and Right upper quadrant pain R10.11 [facility] [place] [address] [place] [address] Feb, [facility] [place] [address] [place] [address] Feb, [facility] [place] [address] [place] [address] Jan, Type 2 diabetes mellitus with hyperglycemia E11.65 and Right sided abdominal pain R10.9 [facility] [place] [address] [place] [address] Jan, [facility] [place] [address] [place] [address] Jan, Nausea R11.0 ; Essential hypertension I10 and Dizziness R42 [facility] [address] [place] [address] Jan, [facility] [place] [address] [place] [address] Nov, [facility] [place] [address] [place] [address] Nov, [facility] [place] [address] [place] [address] Oct, [facility] [place] [address] [place] [address] Oct, [facility] [place] [address] [place] [address] Oct, [facility] [place] [address] [place] [address] Sep, [facility] [address] [facility] [id number] [address] Sep, Ganglion of tendon M67.40 and DM neuro manif type II E11.40 [facility] [place] [address] [place] [address] Aug, Pure hyperglyceridemia E78.1 [facility] [address] [address] Aug, [facility] [address] [address] Aug, [facility] [address] [address] Aug, [facility] [address] [address] Aug, Fibromyalgia M79.[address] [address] Aug, [facility] [address] [address] Aug, Fibromyalgia M79.[address] [address] Aug, Fibromyalgia M79.7 ; Mass of right foot R22.41 and Type 2 diabetes mellitus with hyperglycemia E11.[address] [address] Jun, [facility] [address] [address] Jun, Furuncle L02.92 and Methicillin resistant Staph aureus culture positive Z22.[address] [address] Jun, Furuncle L02.92 ; Cellulitis of other specified site L03.818 and Methicillin resistant Staph aureus culture positive Z22.[address] [address] Jun, [facility] [address] [address] Jun, Furuncle L02.92 and Cellulitis of other specified site L03.[address] [address] May, Pure hyperglyceridemia E78.1 ; Abscess L02.91 ; Restless legs syndrome G25.81 and Type 2 diabetes mellitus with hyperglycemia E11.65 [facility] [place] [address] [place] [address] May, [facility] [place] [address] [place] [address] 18 May, 2016 [facility] [place] [address] [place] [address] May, [facility] [place] [address] [place] [address] 16 Apr, 2016 [facility] [place] [address] [place] [address] Mar, Well woman exam Z01.419 ; Encounter for screening mammogram for breast cancer Z12.31 and History of cervical cancer Z85.41 [facility] [address] [place] [address] Mar, Insect bite, multiple W57.XXXA ; Type 2 diabetes mellitus with diabetic neuropathy, unspecified E11.40 ; Essential (primary) hypertension I10 ; DM neuro manif type II E11.40 and Restless legs syndrome G25.81 [facility] [place] [address] [place] [address] Feb, [facility] [place] [address] [place] [address] Feb, [facility] [address] [place] [address] Feb, [facility] [place] [address] [place] [address] Jan, [facility] [place] [address] [place] [address] Jan, [facility] [place] [address] [place] [address] Jan, Abscess L02.91 [facility] [address] [place] [address] December, DM neuro manif type II E11.40 ; Pure hyperglyceridemia E78.1 ; Essential (primary) hypertension I10 and Type 2 diabetes mellitus without complication E11.9 [facility] [place] [address] [place] [address] Oct, [facility] [place] [address] [place] [address] Sep, [facility] [place] [address] [place] [address] Sep, [facility] [place] [address] [place] [address] Sep, [facility] [place] [address] [place] [address] Sep, Type 2 diabetes mellitus without complication E11.9 ; Pure hyperglyceridemia E78.1 ; Cardiac murmur, unspecified R01.1 and Essential (primary) hypertension I10 [facility] [place] [address] [place] [address] Aug, [facility] [place] [address] [place] [address] Jul, [facility] [place] [address] [place] [address] Jul, [facility] [place] [address] [place] [address] Jun, [facility] [place] [address] [place] [address] Jun, [facility] [place] [address] [place] [address] May, [facility] [place] [address] [place] [address] May, [facility] [place] [address] [place] [address] May, [facility] [place] [address] [place] [address] May, [facility] [place] [address] [place] [address] May, [facility] [place] [address] [place] [address] May, [facility] [place] [address] [place] [address] Apr, Onychomycosis 110.1 [facility] [address] [place] [address] Apr, [facility] [address] [place] [address] 14 Apr, 2015 Nail dystrophy 703.[address] [address] 08 Apr, 2015 Ingrown nail 703.[address] [address] 04 Apr, 2015 Ingrown nail 703.[address] [address] Mar, [address] [address] Mar, Diabetic neuropathy 250.60 ; Fibromyalgia 729.1 and Lumbago 724.[address] [address] Mar, [address] [address] Jan, Diabetes mellitus without mention of complication, type II or unspecified type, uncontrolled 250.02 and Hypomagnesemia 275.[address] [address] Jan, [address] [address] Jan, Coronary atherosclerosis of unspecified type of vessel, [place] or graft 414.00 ; Essential hypertension, benign 401.1 ; Other and unspecified hyperlipidemia 272.4 ; Diabetes mellitus without mention of complication, type II or unspecified type, uncontrolled 250.02 ; Depressive disorder, not elsewhere classified 311 and Restless legs syndrome [RLS] 333.[address] [address] Jan, [address] [address] December, Sciatica 724.3 ; Muscle spasm 728.85 ; UTI (urinary tract infection) 599.0 and Dysuria 788.1 [facility] [address] [place] [address] December, [facility] [place] [address] [place] [address] December, Scabies 133.0 and Leg pain 729.5 [facility] [address] [address] Nov, [facility] [id number] [place] [address] Nov, [facility] [place] [address] [place] [address] Aug, [facility] [id number] [place] [address] Aug, [facility] [place] [address] [place] [address] Jul, [facility] [id number] [place] [address] Jul, [facility] [place] [address] [place] [address] Jul, [facility] [address] [place] [address] Jul, [facility] [place] [address] [place] [address] Jul, [facility] [address] [address] Jul, [facility] [place] [address] [place] [address] Jun, [facility] [address] [address] Jun, [facility] [place] [address] [place] [address] Jun, [facility] [address] [address] Jun, [facility] [place] [address] [place] [address] May, 2013 [facility] [id number] [address] May, [facility] [place] [facility] [id number] [address] Apr, 2013 [facility] [id number] [address] 29 Apr, 2013 [facility] [place] [address] [place] [address] Apr, 2013 [facility] [id number] [address] Apr, 2013 [facility] [place] [address] [place] [address] Apr, 2013 [facility] [id number] [address] Apr, 2013 [facility] [id number] [address] Apr, 2013 [facility] [place] [address] [place] [address] 18 Apr, 2013 [facility] [id number] [address] 18 Apr, 2013 [facility] [place] [address] [place] [address] Apr, 2013 [facility] [place] [facility] [id number] [address] 12 Apr, 2013 [facility] [place] [facility] [id number] [address] 10 Apr, 2013 [facility] [place] [address] [place] [address] 08 Apr, 2013 [facility] [place] [address] [place] [address] 08 Apr, 2013 [facility] [place] [facility] [id number] [address] 08 Apr, 2013 [facility] [place] [facility] [address] [address] Apr, [facility] [place] [address] [place] [address] Mar, [facility] [address] [address] Mar, [facility] [place] [address] [place] [address] Mar, [facility] [address] [address] Mar, [facility] [place] [address] [place] [address] Feb, [facility] [address] [address] Feb, [facility] [place] [address] [place] [address] December, [facility] [address] [address] December, [facility] [place] [address] [place] [address] December, [facility] [address] [address] December, [facility] [place] [address] [place] [address] Nov, [facility] [address] [address] Nov, [facility] [place] [address] [place] [address] Nov, [facility] [address] [address] Nov, [facility] [place] [address] [place] [address] Nov, [facility] [address] [address] Nov, [facility] [address] [facility] [id number] [place] [address] Oct, [facility] [address] [facility] [id number] [place] [address] Oct, [facility] [address] [facility] [id number] [place] [address] Aug, [facility] [address] [facility] [id number] [place] [address] Aug, [facility] [place] [address] [place] [facility] [place] [address] Aug, [facility] [address] [facility] [id number] [place] [address] Aug, [facility] [id number] [place] [address] Aug, [facility] [id number] [place] [address] Aug, [facility] [place] [address] [place] [facility] [address] Jul, [facility] [address] [facility] [id number] [place] [address] Jul, [facility] [address] [facility] [id number] [place] [address] Jul, [facility] [id number] [place] [address] Jul, [facility] [place] [facility] [address] [facility] [id number] [address] Jun, [facility] [address] [facility] [id number] [place] [address] Jun, [facility] [address] [facility] [id number] [place] [address] Jun, [facility] [address] [facility] [id number] [place] [address] Jun, [facility] [place] [facility] [address] [id number] [place] [address] 08 Jun, 2012 [facility] [place] [facility] [address] [id number] [place] [address] 07 Jun, 2013 [facility] [place] [facility] [address] [id number] [place] [address] 07 Jun, 2013 [facility] [place] [facility] [address] [id number] [place] [address] 06 Jun, 2013 [facility] [place] [facility] [address] [id number] [place] [address] 06 Jun, 2012 [facility] [place] [facility] [address] [id number] [place] [address] 18 May, 2013 [facility] [place] [facility] [address] [id number] [place] [address] 18 May, 2013 [facility] [place] [facility] [address] [id number] [place] [address] 16 May, 2013 [facility] [place] [facility] [address] [id number] [place] [address] 16 May, 2013 [facility] [place] [facility] [address] [id number] [place] [address] 14 May, 2013 [facility] [place] [facility] [address] [id number] [place] [address] 14 May, 2013 [facility] [place] [facility] [address] [id number] [place] [address] May, [facility] [place] [facility] [address] [id number] [place] [address] Apr, [facility] [place] [facility] [address] [id number] [place] [address] Mar, [facility] [place] [facility] [address] [id number] [place] [address] Mar, [facility] [place] [facility] [address] [id number] [address] Mar, [facility] [id number] [address] Mar, [facility] [address] [facility] [id number] [place] [address] Feb, [facility] [address] [address] Feb, [facility] [address] [facility] [id number] [place] [address] Feb, [facility] [address] [facility] [id number] [place] [address] Feb, [facility] [address] [address] Feb, [facility] [address] [address] Feb, [facility] [address] [address] Jan, [facility] [address] [address] Jan, [facility] [address] [address] Jan, [facility] [id number] [address] Jan, IMMUNIZATIONS No Known Immunizations SOCIAL HISTORY Never Assessed REASON FOR VISIT Pain (acute)-back, said she feels bone on bone, said she had meds for restless l egs it doesnt help, said its a constant ache JBishop PLAN OF CARE Activity Details Follow Up prn Reason: VITAL SIGNS Height 63 in 2018-05-05 Weight 155.0 lbs 2018-05-05 Temperature 97.7 degrees Fahrenheit 2018-05-05 Heart Rate 94 bpm 2018-05-05 Respiratory Rate 18 2018-05-05 BMI 27.45 kg/m2 2018-05-05 Blood pressure systolic 148 mmHg 2018-05-05 Blood pressure diastolic 76 mmHg 2018-05-05 MEDICATIONS Medication Instructions Dosage Frequency Start Date End Date Duration Status Protonix 40 MG Orally Once a day 1 packet 24h 20 Apr, 2017 30 day(s) Active Duloxetine HCl 60 mg Orally Once a day 2 capsule 24h Active Cymbalta 60 mg Orally Once a day 2 tablets 24h Active Advair Diskus 250-50 MCG/DOSE by inhalation route Twice a day 1 puff 12h Active MetFORMIN HCl ER 500 mg Orally 2 times a day 1 tablet with evening meal 12h Jan, 30 day(s) Active Magnesium 250 MG Orally Once a day 1 tablet with a meal 24h Active Aspirin 81 MG Orally Once a day 1 tablet 24h Active Atorvastatin Calcium 40 mg Orally Once a day 1 tablet 24h May, 90 days Active Lisinopril 10 MG Orally Once a day 1 tablet 24h 30 days Active PredniSONE 20 MG Orally Once a day 2 tablet 24h Apr, 5 day(s) Active Ropinirole HCl 3 MG Orally at noon 1 tablet at noon and 2 at hs Jun, Active Metoprolol Tartrate 50 mg Orally Twice a day 1 tablet 12h Aug, 90 days Active RESULTS No Results PROCEDURES No Known procedures INSTRUCTIONS MEDICATIONS ADMINISTERED No Known Medications MEDICAL (GENERAL) HISTORY Type Description Date Medical History Atherosclerotic heart disease of [place] coronary artery without angina pectoris Medical History [...]
--- OUTSIDE RECORDS SUMMARY | 2019-02-01 09:06 | XMS REPORT ---
Author Author SJ ALY [facility] [address] [place] [address] Care Team Providers Care Cosmetic Manager Name Role Phone SJ ALY Unavailable PROBLEMS Type Condition ICD9-CM Code OTR36-HQ Code Onset Dates Condition Status SNOMED Code Problem Type 2 diabetes mellitus with hyperglycemia E11.65 Active 209239510194683 Problem Restless legs syndrome G25.81 Active 55450707 Problem Type 2 diabetes mellitus with diabetic neuropathy, unspecified E11.40 Active 8999040067394 Problem Lumbago with sciatica, right side M54.41 Active 212188156208915 Problem Lumbago with sciatica, left side M54.42 Active 362444450 Problem DM neuro manif type II E11.40 Active 300956068 Problem Fibromyalgia M79.7 Active 578601220 Problem Chronic obstructive pulmonary disease, unspecified COPD type J44.9 Active 71024818 Problem Essential hypertension I10 Active 30841262 Problem Coronary atherosclerosis of unspecified type of vessel, [place] or graft 414.00 Active 999949570 Problem Depressive disorder, not elsewhere classified 311 Active 26341316 Problem Solitary pulmonary nodule 793.11 Active 823212693 Problem Unspecified hypertrophic and atrophic condition of skin 701.9 Active 030054495 Problem Type 2 diabetes mellitus without complication E11.9 Active 97757389 Problem Cardiac murmur, unspecified R01.1 Active 453660964 Problem Hypomagnesemia 275.2 Active 511595633 Problem Essential (primary) hypertension I10 Active 85581772 Problem Diabetic neuropathy 250.60 Active 393220886 Problem Pure hyperglyceridemia E78.1 Active 998132991 ALLERGIES No Information ENCOUNTERS Encounter Location Date Diagnosis [facility] [address] [place] [address] [place] [address] May, Type 2 diabetes mellitus with hyperglycemia E11.65 and Restless legs syndrome G25.81 [facility] [address] [place] [address] [place] [address] Apr, Lumbago with sciatica, left side M54.42 ; Lumbago with sciatica, right side M54.41 and Restless legs syndrome G25.81 [facility] [address] [place] [address] [place] [address] Mar, [facility] [address] [place] [address] [place] [address] Feb, Restless legs syndrome G25.81 and Fibromyalgia M79.7 [facility] [address] [place] [address] [place] [address] Feb, Essential hypertension I10 and Type 2 diabetes mellitus with hyperglycemia E11.65 [facility] [address] [facility] [address] [place] [address] Feb, Essential (primary) hypertension I10 and Exposure to hepatitis C Z20.5 [facility] [address] [place] [address] Jan, [facility] [place] [address] [place] [address] Jan, [facility] [place] [address] [place] [address] Jan, [facility] [place] [address] [place] [address] Jan, [facility] [place] [address] [place] [address] Jan, [facility] [place] [address] [place] [address] Jan, [facility] [place] [address] [place] [address] December, Essential (primary) hypertension I10 [facility] [place] [address] [place] [address] December, Restless legs syndrome G25.81 [facility] [place] [address] [place] [address] December, Restless legs syndrome G25.81 [facility] [place] [address] [place] [address] December, Restless legs syndrome G25.81 [facility] [place] [address] [place] [address] December, Restless legs syndrome G25.81 [facility] [place] [address] [place] [address] Nov, [facility] [address] [place] [address] Nov, Type 2 diabetes mellitus with hyperglycemia E11.65 [facility] [address] [facility] [id number] [place] [address] Nov, Essential hypertension I10 [facility] [address] [place] [address] Oct, Restless legs syndrome G25.81 [facility] [address] [place] [address] Aug, Type 2 diabetes mellitus with hyperglycemia E11.65 ; Restless legs syndrome G25.81 ; Fibromyalgia M79.7 ; Essential hypertension I10 and Urinary urgency R39.15 [facility] [address] [place] [address] May, [facility] [address] [address] May, Type 2 diabetes mellitus with hyperglycemia E11.65 [facility] [address] [address] May, [facility] [address] [address] Apr, Type 2 diabetes mellitus with hyperglycemia E11.65 [facility] [address] [address] Apr, [facility] [address] [address] Apr, Hospital discharge follow-up Z09 ; Cardiac murmur, unspecified R01.1 ; Tobacco abuse Z72.0 and Chronic obstructive pulmonary disease, unspecified COPD type J44.9 [facility] [address] [place] [address] Mar, Type 2 diabetes mellitus with hyperglycemia E11.65 [facility] [address] [place] [address] Feb, Type 2 diabetes mellitus with hyperglycemia E11.65 and Essential hypertension I10 [facility] [place] [address] [place] [address] Feb, Restless legs syndrome G25.81 ; Type 2 diabetes mellitus with hyperglycemia E11.65 ; Essential hypertension I10 and Right upper quadrant pain R10.11 [facility] [place] [address] [place] [address] Feb, [facility] [place] [address] [place] [address] Feb, [facility] [place] [address] [place] [address] Jan, Type 2 diabetes mellitus with hyperglycemia E11.65 and Right sided abdominal pain R10.9 [facility] [place] [address] [place] [address] Jan, [facility] [place] [address] [place] [address] Jan, Nausea R11.0 ; Essential hypertension I10 and Dizziness R42 [facility] [place] [address] [place] [address] Jan, [facility] [place] [address] [place] [address] Nov, [facility] [place] [address] [place] [address] Nov, [facility] [place] [address] [place] [address] Oct, [facility] [place] [address] [place] [address] Oct, [facility] [place] [address] [place] [address] Oct, [facility] [place] [address] [place] [address] Sep, [facility] [address] [facility] [id number] [place] [address] Sep, Ganglion of tendon M67.40 and DM neuro manif type II E11.40 [facility] [place] [address] [place] [address] Aug, Pure hyperglyceridemia E78.1 [facility] [address] [place] [address] Aug, [facility] [address] [address] Aug, [facility] [address] [place] [address] Aug, [facility] [address] [address] Aug, Fibromyalgia M79.7 [facility] [address] [place] [address] Aug, [facility] [address] [address] Aug, Fibromyalgia M79.7 [facility] [address] [address] Aug, Fibromyalgia M79.7 ; Mass of right foot R22.41 and Type 2 diabetes mellitus with hyperglycemia E11.[address] [address] Jun, [facility] [address] [address] Jun, Furuncle L02.92 and Methicillin resistant Staph aureus culture positive Z22.[address] [address] Jun, Furuncle L02.92 ; Cellulitis of other specified site L03.818 and Methicillin resistant Staph aureus culture positive Z22.[address] [address] Jun, [facility] [address] [address] Jun, Furuncle L02.92 and Cellulitis of other specified site L03.818 [facility] [address] [place] [address] May, Pure hyperglyceridemia E78.1 ; Abscess L02.91 ; Restless legs syndrome G25.81 and Type 2 diabetes mellitus with hyperglycemia E11.65 [facility] [place] [address] [place] [address] May, [facility] [address] [place] [address] 18 May, 2016 [facility] [address] [place] [address] May, [facility] [address] [place] [address] Apr, [facility] [address] [address] Mar, Well woman exam Z01.419 ; Encounter for screening mammogram for breast cancer Z12.31 and History of cervical cancer Z85.41 [facility] [address] [place] [address] Mar, Insect bite, multiple W57.XXXA ; Type 2 diabetes mellitus with diabetic neuropathy, unspecified E11.40 ; Essential (primary) hypertension I10 ; DM neuro manif type II E11.40 and Restless legs syndrome G25.81 [facility] [address] [place] [address] Feb, [facility] [address] [place] [address] Feb, [facility] [address] [place] [address] Feb, [facility] [address] [place] [address] Jan, [facility] [address] [place] [address] Jan, [facility] [address] [place] [address] Jan, Abscess L02.91 [facility] [address] [place] [address] December, DM neuro manif type II E11.40 ; Pure hyperglyceridemia E78.1 ; Essential (primary) hypertension I10 and Type 2 diabetes mellitus without complication E11.9 [facility] [address] [place] [address] Oct, [address] [address] [place] [address] Sep, 2015 [facility] [place] [address] [place] [address] Sep, [facility] [place] [address] [place] [address] Sep, [facility] [place] [address] [place] [address] Sep, Type 2 diabetes mellitus without complication E11.9 ; Pure hyperglyceridemia E78.1 ; Cardiac murmur, unspecified R01.1 and Essential (primary) hypertension I10 [facility] [place] [address] [place] [address] Aug, [facility] [place] [address] [place] [address] Jul, [facility] [place] [address] [place] [address] Jul, [facility] [place] [address] [place] [address] Jun, [facility] [place] [address] [place] [address] Jun, [facility] [place] [address] [place] [address] May, [facility] [place] [address] [place] [address] May, [facility] [place] [address] [place] [address] May, [facility] [place] [address] [place] [address] May, 2014 [facility] [place] [address] [place] [address] May, [facility] [place] [address] [place] [address] May, 2014 [facility] [place] [address] [place] [address] Apr, Onychomycosis 110.1 [facility] [place] [address] [place] [address] 15 Apr, 2015 [facility] [address] [place] [address] 14 Apr, 2015 Nail dystrophy 703.[address] [address] 08 Apr, 2015 Ingrown nail 703.[address] [address] 04 Apr, 2015 Ingrown nail 703.[address] [address] Mar, [address] [address] Mar, Diabetic neuropathy 250.60 ; Fibromyalgia 729.1 and Lumbago 724.[address] [address] Mar, [address] [address] Jan, Diabetes mellitus without mention of complication, type II or unspecified type, uncontrolled 250.02 and Hypomagnesemia 275.[address] [address] Jan, [address] [address] Jan, Coronary atherosclerosis of unspecified type of vessel, [place] or graft 414.00 ; Essential hypertension, benign 401.1 ; Other and unspecified hyperlipidemia 272.4 ; Diabetes mellitus without mention of complication, type II or unspecified type, uncontrolled 250.02 ; Depressive disorder, not elsewhere classified 311 and Restless legs syndrome [RLS] 333.94 [facility] [address] [place] [address] Jan, [address] [address] December, Sciatica 724.3 ; Muscle spasm 728.85 ; UTI (urinary tract infection) 599.0 and Dysuria 788.[address] [address] December, [address] [place] [address] December, Scabies 133.0 and Leg pain 729.5 [facility] [address] [address] Nov, [facility] [id number] [place] [address] Nov, [facility] [place] [address] [place] [address] Aug, [facility] [id number] [place] [address] Aug, [facility] [place] [address] [place] [address] Jul, [facility] [address] [place] [address] Jul, [facility] [place] [address] [place] [address] Jul, [facility] [address] [place] [address] Jul, [facility] [place] [address] [place] [address] Jul, [facility] [address] [place] [address] Jul, [facility] [place] [address] [place] [address] Jun, [facility] [address] [address] Jun, [facility] [place] [address] [place] [address] Jun, [facility] [address] [address] Jun, [facility] [place] [address] [place] [address] May, [facility] [address] [place] [address] May, [facility] [place] [facility] [address] [facility] [id number] [address] 29 Apr, 2013 [facility] [place] [facility] [id number] [address] 29 Apr, 2013 [facility] [place] [address] [place] [address] Apr, 2013 [facility] [place] [facility] [id number] [place] [address] Apr, 2013 [facility] [place] [address] [place] [address] Apr, 2013 [facility] [place] [facility] [id number] [place] [address] Apr, 2013 [facility] [place] [facility] [id number] [address] Apr, 2013 [facility] [place] [address] [place] [address] 18 Apr, 2013 [facility] [place] [facility] [id number] [address] 18 Apr, 2013 [facility] [place] [address] [place] [address] Apr, 2013 [facility] [place] [facility] [id number] [address] 12 Apr, 2013 [facility] [place] [facility] [id number] [address] 10 Apr, 2013 [facility] [place] [address] [place] [address] 08 Apr, 2013 [facility] [place] [address] [place] [address] 08 Apr, 2013 [facility] [place] [facility] [id number] [address] 08 Apr, 2013 [facility] [place] [facility] [id number] [address] 08 Apr, 2013 [facility] [place] [address] [place] [facility] [address] Mar, [facility] [id number] [address] Mar, [facility] [place] [address] [place] [address] Mar, [facility] [id number] [address] Mar, [facility] [place] [address] [place] [facility] [address] Feb, [facility] [id number] [address] Feb, [facility] [place] [address] [place] [address] December, [facility] [address] [address] December, [facility] [place] [address] [place] [address] December, [facility] [id number] [address] December, [facility] [place] [address] [place] [facility] [place] [address] Nov, [facility] [id number] [address] Nov, [facility] [place] [address] [place] [address] Nov, [facility] [id number] [address] Nov, [facility] [place] [address] [place] [address] Nov, [facility] [id number] [address] Nov, [facility] [id number] [address] Oct, [facility] [address] [facility] [id number] [place] [address] Oct, [facility] [address] [facility] [id number] [place] [address] Aug, [facility] [address] [facility] [id number] [place] [address] Aug, [facility] [address] [place] [address] Aug, [facility] [address] [facility] [id number] [place] [address] Aug, [facility] [address] [facility] [id number] [place] [address] Aug, [facility] [address] [id number] [address] Aug, nancyJhonatan [place] [address] [place] [address] Jul, [facility] [address] [facility] [id number] [address] Jul, [facility] [id number] [address] Jul, [facility] [id number] [address] Jul, [facility] [id number] [address] Jun, [facility] [address] [facility] [id number] [place] [address] Jun, [facility] [address] [facility] [id number] [place] [address] Jun, [facility] [address] [facility] [id number] [place] [address] Jun, [facility] [address] [facility] [id number] [place] [address] Jun, [facility] [place] [facility] [address] [id number] [place] [address] 07 Jun, 2012 [facility] [place] [facility] [address] [id number] [place] [address] 07 Jun, 2013 [facility] [place] [facility] [address] [id number] [place] [address] 06 Jun, 2013 [facility] [place] [facility] [address] [id number] [place] [address] 06 Jun, 2013 [facility] [place] [facility] [address] [id number] [place] [address] 18 May, 2013 [facility] [place] [facility] [address] [id number] [place] [address] 18 May, 2013 [facility] [place] [facility] [address] [id number] [place] [address] 16 May, 2013 [facility] [place] [facility] [address] [id number] [place] [address] 16 May, 2013 [facility] [place] [facility] [address] [id number] [place] [address] May, [facility] [place] [facility] [address] [id number] [place] [address] 14 May, 2013 [facility] [place] [facility] [address] [id number] [place] [address] May, [facility] [place] [facility] [address] [id number] [place] [address] Apr, [facility] [place] [facility] [address] [id number] [place] [address] Mar, [facility] [place] [facility] [address] [id number] [place] [address] Mar, [facility] [place] [facility] [address] [id number] [place] [address] Mar, [facility] [place] [facility] [address] [id number] [address] Mar, [facility] [id number] [address] Feb, [facility] [address] [address] Feb, [facility] [id number] [address] Feb, [facility] [address] [address] Feb, [facility] [id number] [address] Feb, [facility] [address] [address] Feb, [facility] [address] [address] Jan, [facility] [id number] [address] Jan, [facility] [id number] [address] Jan, [facility] [id number] [address] Jan, IMMUNIZATIONS No Known Immunizations SOCIAL HISTORY Never Assessed REASON FOR VISIT repository refills PLAN OF CARE VITAL SIGNS MEDICATIONS Medication Instructions Dosage Frequency Start Date End Date Duration Status Ropinirole HCl 3 MG Orally at noon 1 tablet at noon and 2 at hs 03 Jun, 2016 Active MetFORMIN HCl ER 500 mg Orally 2 times a day 1 tablet with evening meal 12h Jan, 30 day(s) Active RESULTS No Results PROCEDURES No Known procedures INSTRUCTIONS MEDICATIONS ADMINISTERED No Known Medications MEDICAL (GENERAL) HISTORY Type Description Date Medical History Atherosclerotic heart disease of [place] coronary artery without angina pectoris Medical History [...]
--- OUTSIDE RECORDS SUMMARY | 2019-02-01 09:07 | XMS REPORT ---
Author Author [facility] [address] [place] [address] Care Team Providers Care Hand Violin Maker Name Role Phone SJ ALY Unavailable PROBLEMS Type Condition ICD9-CM Code [id number] Code Onset Dates Condition Status SNOMED Code Problem Type 2 diabetes mellitus with hyperglycemia E11.65 Active 460087412793570 Problem Restless legs syndrome G25.81 Active 05953263 Problem Type 2 diabetes mellitus with diabetic neuropathy, unspecified E11.40 Active 3743084515891 Problem Lumbago with sciatica, right side M54.41 Active 453668685252981 Problem Lumbago with sciatica, left side M54.42 Active 280076004 Problem DM neuro manif type II E11.40 Active 857240158 Problem Fibromyalgia M79.7 Active 201224113 Problem Chronic obstructive pulmonary disease, unspecified COPD type J44.9 Active 31217563 Problem Essential hypertension I10 Active 16977994 Problem Coronary atherosclerosis of unspecified type of vessel, cachil dehe or graft 414.00 Active 836270176 Problem Depressive disorder, not elsewhere classified 311 Active 81413279 Problem Solitary pulmonary nodule 793.11 Active 238362905 Problem Unspecified hypertrophic and atrophic condition of skin 701.9 Active 632549268 Problem Type 2 diabetes mellitus without complication E11.9 Active 07160108 Problem Cardiac murmur, unspecified R01.1 Active 669584983 Problem Hypomagnesemia 275.2 Active 573561963 Problem Essential (primary) hypertension I10 Active 76028595 Problem Diabetic neuropathy 250.60 Active 110740955 Problem Pure hyperglyceridemia E78.1 Active 109909458 ALLERGIES No Information ENCOUNTERS Encounter Location Date Diagnosis [facility] [address] [place] [address] Apr, Lumbago with sciatica, left side M54.42 ; Lumbago with sciatica, right side M54.41 and Restless legs syndrome G25.81 [facility] [address] [place] [address] Mar, [facility] [address] [place] [address] Feb, Restless legs syndrome G25.81 and Fibromyalgia M79.7 [facility] [address] [place] [address] Feb, Essential hypertension I10 and Type 2 diabetes mellitus with hyperglycemia E11.65 [facility] [address] [place] [address] Feb, Essential (primary) hypertension I10 and Exposure to hepatitis C Z20.[address] [facility] [address] [place] [address] Jan, [facility] [place] [address] [place] [address] Jan, [facility] [place] [address] [place] [address] Jan, [facility] [place] [address] [place] [address] Jan, [facility] [place] [address] [place] [address] Jan, [facility] [address] [place] [address] Jan, [facility] [place] [address] [place] [address] December, Essential (primary) hypertension I10 [facility] [place] [address] [place] [address] December, Restless legs syndrome G25.81 [facility] [place] [address] [place] [address] December, Restless legs syndrome G25.81 [facility] [place] [address] [place] [address] December, Restless legs syndrome G25.81 [facility] [place] [address] [place] [address] December, Restless legs syndrome G25.81 [facility] [place] [address] [place] [address] Nov, [facility] [address] [place] [address] Nov, Type 2 diabetes mellitus with hyperglycemia E11.65 [facility] [address] [facility] [id number] [place] [address] Nov, Essential hypertension I10 [facility] [place] [address] [place] [address] Oct, Restless legs syndrome G25.81 [facility] [place] [address] [place] [address] Aug, Type 2 diabetes mellitus with hyperglycemia E11.65 ; Restless legs syndrome G25.81 ; Fibromyalgia M79.7 ; Essential hypertension I10 and Urinary urgency R39.[address] [address] [address] May, [facility] [address] [address] May, Type 2 diabetes mellitus with hyperglycemia E11.[address] [address] [place] [address] May, [facility] [address] [address] Apr, Type 2 diabetes mellitus with hyperglycemia E11.[address] [facility] [address] [address] 15 Apr, 2017 [facility] [address] [address] 11 Apr, 2017 Hospital discharge follow-up Z09 ; Cardiac murmur, unspecified R01.1 ; Tobacco abuse Z72.0 and Chronic obstructive pulmonary disease, unspecified COPD type J44.9 [facility] [place] [address] [place] [address] Mar, Type 2 diabetes mellitus with hyperglycemia E11.[address] [address] [place] [address] Feb, Type 2 diabetes mellitus with hyperglycemia E11.65 and Essential hypertension I10 [facility] [place] [address] [place] [address] 12 Desean, 2017 Restless legs syndrome G25.81 ; Type 2 diabetes mellitus with hyperglycemia E11.65 ; Essential hypertension I10 and Right upper quadrant pain R10.11 [facility] [address] [place] [address] Feb, [facility] [place] [address] [place] [address] Feb, [facility] [place] [address] [place] [address] Jan, Type 2 diabetes mellitus with hyperglycemia E11.65 and Right sided abdominal pain R10.9 [facility] [place] [address] [place] [address] Jan, [facility] [place] [address] [place] [address] Jan, Nausea R11.0 ; Essential hypertension I10 and Dizziness R42 [facility] [place] [address] [place] [address] Jan, [facility] [place] [address] [place] [address] Nov, [facility] [place] [address] [place] [address] Nov, [facility] [place] [address] [place] [address] Oct, [facility] [place] [address] [place] [address] Oct, [facility] [place] [address] [place] [address] Oct, [facility] [place] [address] [place] [address] Sep, [facility] [address] [facility] [id number], [place] [address] Sep, Ganglion of tendon M67.40 and DM neuro manif type II E11.40 [facility] [place] [address] [place] [address] Aug, Pure hyperglyceridemia E78.1 [facility] [place] [address] [place] [address] Aug, [facility] [address] [place] [address] Aug, [facility] [place] [address] [place] [address] Aug, [facility] [place] [address] [place] [address] Aug, Fibromyalgia M79.7 [facility] [place] [address] [place] [address] Aug, [facility] [place] [address] [place] [address] Aug, Fibromyalgia M79.7 [facility] [place] [address] [place] [address] Aug, Fibromyalgia M79.7 ; Mass of right foot R22.41 and Type 2 diabetes mellitus with hyperglycemia E11.65 [facility] [place] [address] [place] [address] Jun, [facility] [place] [address] [place] [address] Jun, Furuncle L02.92 and Methicillin resistant Staph aureus culture positive Z22.322 [facility] [place] [address] [place] [address] Jun, Furuncle L02.92 ; Cellulitis of other specified site L03.818 and Methicillin resistant Staph aureus culture positive Z22.322 [facility] [place] [address] [place] [address] Jun, [facility] [address] [address] Jun, Furuncle L02.92 and Cellulitis of other specified site L03.818 [facility] [place] [address] [place] [address] May, Pure hyperglyceridemia E78.1 ; Abscess L02.91 ; Restless legs syndrome G25.81 and Type 2 diabetes mellitus with hyperglycemia E11.65 [facility] [place] [address] [place] [address] May, [facility] [place] [address] [place] [address] 18 May, 2016 [facility] [place] [address] [place] [address] May, [facility] [place] [address] [place] [address] Apr, [address] [address] Mar, Well woman exam Z01.419 ; Encounter for screening mammogram for breast cancer Z12.31 and History of cervical cancer Z85.41 [facility] [address] [place] [address] Mar, Insect bite, multiple W57.XXXA ; Type 2 diabetes mellitus with diabetic neuropathy, unspecified E11.40 ; Essential (primary) hypertension I10 ; DM neuro manif type II E11.40 and Restless legs syndrome G25.81 [facility] [address] [place] [address] Feb, [facility] [address] [place] [address] Feb, [address] [address] Feb, [address] [address] Jan, [address] [address] Jan, [address] [address] Jan, Abscess L02.[address] [address] December, DM neuro manif type II E11.40 ; Pure hyperglyceridemia E78.1 ; Essential (primary) hypertension I10 and Type 2 diabetes mellitus without complication E11.9 [facility] [address] [place] [address] Oct, [facility] [place] [address] [place] [address] Sep, [facility] [address] [place] [address] Sep, [facility] [place] [address] [place] [address] Sep, [facility] [place] [place] [address] Sep, Type 2 diabetes mellitus without complication E11.9 ; Pure hyperglyceridemia E78.1 ; Cardiac murmur, unspecified R01.1 and Essential (primary) hypertension I10 [facility] [place] [address] [place] [address] Aug, [facility] [place] [place] [address] Jul, [facility] [place] [address] [place] [address] Jul, [facility] [place] [address] [place] [address] Jun, [facility] [place] [address] [place] [address] Jun, [facility] [place] [address] [place] [address] May, [facility] [place] [address] [place] [address] May, [facility] [place] [address] [place] [address] May, [facility] [place] [address] [place] [address] May, [facility] [place] [address] [place] [address] May, [facility] [place] [address] [place] [address] May, [facility] [place] [address] [place] [address] Apr, Onychomycosis 110.1 [facility] [place] [address] [place] [address] 15 Apr, 2015 [facility] [place] [address] [place] [address] 14 Apr, 2015 Nail dystrophy 703.8 [facility] [place] [address] [place] [address] Apr, Ingrown nail 703.0 [facility] [place] [address] [place] [address] Apr, Ingrown nail 703.[address] [address] Mar, [facility] [place] [address] [place] [address] Mar, Diabetic neuropathy 250.60 ; Fibromyalgia 729.1 and Lumbago 724.2 [facility] [address] [place] [address] Mar, [facility] [address] [place] [address] Jan, Diabetes mellitus without mention of complication, type II or unspecified type, uncontrolled 250.02 and Hypomagnesemia 275.[address] [address] Jan, [address] [address] Jan, Coronary atherosclerosis of unspecified type of vessel, cachil dehe or graft 414.00 ; Essential hypertension, benign 401.1 ; Other and unspecified hyperlipidemia 272.4 ; Diabetes mellitus without mention of complication, type II or unspecified type, uncontrolled 250.02 ; Depressive disorder, not elsewhere classified 311 and Restless legs syndrome [RLS] 333.94 [facility] [address] [place] [address] Jan, [facility] [address] [place] [address] December, Sciatica 724.3 ; Muscle spasm 728.85 ; UTI (urinary tract infection) 599.0 and Dysuria 788.1 [facility] [address] [place] [address] December, [facility] [address] [place] [address] December, Scabies 133.0 and Leg pain 729.5 [facility] [address], [place] [address] 14 Nov, 2014 [facility] [address] [id number] [address] Nov, [facility] [place] [address] [place] [address] Aug, [facility] [address], [place] [address] Aug, [facility] [place] [address] [place] [address] Jul, [facility] [address], [place] [address] Jul, [facility] [place] [address] [place] [address] Jul, [facility] [address], [place] [address] Jul, [facility] [place] [address] [place] [address] Jul, [facility] [address], [place] [address] Jul, [facility] [place] [address] [place] [address] Jun, [facility] [address], [place] [address] Jun, [facility] [place] [address] [place] [address] Jun, [facility] [address], [place] [address] Jun, [facility] [address] [address] [place] [address] May, [facility] [address], [place] [address] May, [facility] [address], [place] [address] Apr, [facility] [place] [facility] [address] [facility] [id number], [place] [address] 29 Apr, 2013 [facility] [place] [address] [place] [address] Apr, 2013 [facility] [place] [facility] [address] [id number], [place] [address] Apr, 2013 [facility] [place] [address] [place] [address] Apr, 2013 [facility] [place] [facility] [address] [id number] [address] Apr, 2013 [facility] [place] [facility] [id number] [place] [address] Apr, 2013 [facility] [place] [address] [place] [address] Apr, 2013 [facility] [place] [facility] [address], [place] [address] Apr, 2013 [facility] [place] [address] [place] [address] Apr, 2013 [facility] [place] [facility] [address] [id number] [address] Apr, 2013 [facility] [place] [facility] [address] [id number] [address] Apr, 2013 [facility] [place] [address] [place] [address] Apr, 2013 [facility] [place] [address] [place] [address] 08 Apr, 2013 [facility] [place] [facility] [address] [id number] [address] Apr, [facility] [place] [facility] [id number] [address] Apr, 2013 [facility] [place] [address] [place] [address] Mar, [facility] [place] [facility] [id number], [place] [address] Mar, [facility] [place] [address] [place] [facility] [place] [address] Mar, [facility] [id number] [address] Mar, [facility] [place] [address] [facility] [place] [address] Feb, [facility] [id number] [address] Feb, [facility] [place] [address] [facility] [place] [address] December, [facility] [id number], [place] [address] December, [facility] [place] [address] [facility] [place] [address] December, [facility] [address], [place] [address] December, [facility] [place] [address] [facility] [place] [address] Nov, [facility] [id number], [place] [address] Nov, [facility] [place] [address] [facility] [place] [address] Nov, [facility] [id number], [place] [address] Nov, [facility] [place] [address] [facility] [place] [address] Nov, [facility] [place] [facility] [address] [id number] [address] Nov, [facility] [id number], [place] [address] Oct, [facility] [place] [facility] [id number], [place] [address] Oct, [facility] [id number] [address] Aug, [facility] [address] [id number], [place] [address] Aug, Justine [facility] [address] [place] [address] Aug, [facility] [place] [facility] [address] [facility] [id number], [place] [address] Aug, [facility] [place] [facility] [address] [facility] [id number], [place] [address] Aug, [facility] [address] [facility] [id number], [place] [address] Aug, Justine BHANDARIA [address] [facility] [place] [address] Jul, [facility] [place] [facility] [address] [id number] [address] Jul, [facility] [place] [facility] [address] [facility] [id number], [place] [address] Jul, [facility] [place] [facility] [address] [id number] [address] Jul, [facility] [place] [facility] [address] [facility] [id number], [place] [address] Jun, [facility] [place] [facility] [address] [id number], [place] [address] Jun, [facility] [place] [facility] [address] [id number], [place] [address] Jun, [facility] [place] [facility] [address] [id number], [place] [address] Jun, [facility] [place] [facility] [address] [facility] [id number], [place] [address] Jun, [facility] [place] [facility] [address] [facility] [id number], [place] [address] Jun, [facility] [place] [facility] [address] [facility] [id number] [place] [address] 07 Jun, 2013 [facility] [place] [facility] [address] [id number] [place] [address] 06 Jun, 2013 [facility] [place] [facility] [address] [id number] [place] [address] 06 Jun, 2013 [facility] [place] [facility] [address] [id number] [place] [address] 18 May, 2013 [facility] [place] [facility] [address] [id number] [place] [address] 18 May, 2013 [facility] [place] [facility] [address] [id number] [place] [address] 16 May, 2013 [facility] [place] [facility] [address] [id number] [place] [address] 16 May, 2013 [facility] [place] [facility] [address] [id number] [place] [address] 14 May, 2013 [facility] [place] [facility] [address] [id number] [place] [address] 14 May, 2013 [facility] [place] [facility] [address] [id number] [place] [address] 04 May, 2013 [facility] [place] [facility] [address] [id number] [place] [address] Apr, [facility] [place] [facility] [address] [id number] [place] [address] Mar, [facility] [place] [facility] [address] [id number] [place] [address] Mar, [facility] [place] [facility] [address] [id number] [place] [address] Mar, [facility] [place] [facility] [address] [id number] [place] [address] Mar, [facility] [place] [facility] [address] [id number] [place] [address] Feb, [facility] [id number], [place] [address] 15 Feb, 2013 [facility] [id number], [place] [address] Feb, [facility] [id number], [place] [address] Feb, [facility] [address], [place] [address] Feb, [facility] [address], [place] [address] Feb, [facility] [address], [place] [address] Jan, [facility] [address], [place] [address] Jan, [facility] [address], [place] [address] Jan, [facility] [id number], [place] [address] Jan, IMMUNIZATIONS No Known Immunizations SOCIAL HISTORY Never Assessed REASON FOR VISIT Atorvastatin - repository PLAN OF CARE VITAL SIGNS MEDICATIONS Unknown Medications RESULTS No Results PROCEDURES No Known procedures INSTRUCTIONS MEDICATIONS ADMINISTERED No Known Medications MEDICAL (GENERAL) HISTORY Type Description Date Medical History 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
--- OUTSIDE RECORDS SUMMARY | 2019-02-01 09:08 | XMS REPORT ---
Author Author [facility]J [facility] Address [address] [place] [address] Care Team Providers Care Education Professor Name Role Phone SJ ALY Unavailable PROBLEMS Type Condition ICD9-CM Code ODW36-DH Code Onset Dates Condition Status SNOMED Code Problem Essential (primary) hypertension I10 Active 78215353 Problem Type 2 diabetes mellitus with hyperglycemia E11.65 Active 963042850228958 Problem Pure hyperglyceridemia E78.1 Active 553568253 Problem Chronic obstructive pulmonary disease, unspecified COPD type J44.9 Active 97095475 Problem Essential hypertension I10 Active 91633903 Problem Restless legs syndrome G25.81 Active 01261522 Problem Type 2 diabetes mellitus with diabetic neuropathy, unspecified E11.40 Active 5235031619134 Problem DM neuro manif type II E11.40 Active 119625191 Problem Fibromyalgia M79.7 Active 053212851 Problem Solitary pulmonary nodule 793.11 Active 014712359 Problem Unspecified hypertrophic and atrophic condition of skin 701.9 Active 501364412 Problem Hypomagnesemia 275.2 Active 832848911 Problem Diabetic neuropathy 250.60 Active 712265248 Problem Coronary atherosclerosis of unspecified type of vessel, [place] or graft 414.00 Active 725567627 Problem Type 2 diabetes mellitus without complication E11.9 Active 38535255 Problem Depressive disorder, not elsewhere classified 311 Active 45038460 Problem Cardiac murmur, unspecified R01.1 Active 286936855 ALLERGIES Substance Reaction Event Type Date Status Hydrocodone-Acetaminophen itching Drug Allergy Feb, Active Acetaminophen-Codeine #3 itching Drug Allergy Feb, Active ENCOUNTERS Encounter Location Date Diagnosis [facility] [address] [place] [address] [place] [address] Mar, [facility] [address] [place] [address] [place] [address] Feb, Restless legs syndrome G25.81 and Fibromyalgia M79.7 [facility] [address] [place] [address] [place] [address] Feb, Essential hypertension I10 and Type 2 diabetes mellitus with hyperglycemia E11.65 [facility] [address] [place] [address] Feb, Essential (primary) hypertension I10 and Exposure to hepatitis C Z20.5 [facility] [address] [place] [address] Jan, [facility] [place] [address] [place] [address] Jan, [facility] [address] [place] [address] Jan, [facility] [place] [address] [place] [address] Jan, [facility] [address] [place] [address] Jan, [facility] [address] [place] [address] Jan, [facility] [place] [address] [place] [address] December, Essential (primary) hypertension I10 [facility] [address] [place] [address] December, Restless legs syndrome G25.81 [facility] [address] [place] [address] December, Restless legs syndrome G25.81 [facility] [place] [address] [place] [address] December, Restless legs syndrome G25.81 [facility] [place] [address] [place] [address] December, Restless legs syndrome G25.81 [facility] [address] [place] [address] Nov, [facility] [place] [address] [place] [address] Nov, Type 2 diabetes mellitus with hyperglycemia E11.65 [facility] [address] [facility] [id number] [place] [address] Nov, Essential hypertension I10 [facility] [place] [address] [place] [address] Oct, Restless legs syndrome G25.[address] [address] Aug, Type 2 diabetes mellitus with hyperglycemia E11.65 ; Restless legs syndrome G25.81 ; Fibromyalgia M79.7 ; Essential hypertension I10 and Urinary urgency R39.15 [facility] [address] [place] [address] May, [facility] [place] [address] [place] [address] May, Type 2 diabetes mellitus with hyperglycemia E11.65 [facility] [address] [place] [address] May, [facility] [address] [address] Apr, Type 2 diabetes mellitus with hyperglycemia E11.65 [facility] [address] [place] [address] Apr, [facility] [address] [address] Apr, Hospital discharge follow-up Z09 ; Cardiac murmur, unspecified R01.1 ; Tobacco abuse Z72.0 and Chronic obstructive pulmonary disease, unspecified COPD type J44.[address] [facility] [address] [address] Mar, Type 2 diabetes mellitus with hyperglycemia E11.65 [facility] [place] [address] [place] [address] Feb, Type 2 diabetes mellitus with hyperglycemia E11.65 and Essential hypertension I10 [facility] [place] [address] [place] [address] Feb, Restless legs syndrome G25.81 ; Type 2 diabetes mellitus with hyperglycemia E11.65 ; Essential hypertension I10 and Right upper quadrant pain R10.11 [facility] [place] [address] [place] [address] Feb, [facility] [place] [address] [place] [address] Feb, [facility] [place] [address] [place] [address] Jan, Type 2 diabetes mellitus with hyperglycemia E11.65 and Right sided abdominal pain R10.9 [facility] [place] [address] [place] [address] Jan, [facility] [place] [address] [place] [address] Jan, Nausea R11.0 ; Essential hypertension I10 and Dizziness R42 [facility] [place] [address] [place] [address] Jan, [facility] [place] [address] [place] [address] Nov, [facility] [place] [address] [place] [address] Nov, [facility] [place] [address] [place] [address] Oct, [facility] [place] [address] [place] [address] Oct, [facility] [address] [place] [address] Oct, [facility] [address] [place] [address] Sep, [facility] [address] [facility] [id number] [place] [address] Sep, Ganglion of tendon M67.40 and DM neuro manif type II E11.40 [facility] [place] [address] [place] [address] Aug, Pure hyperglyceridemia E78.1 [facility] [place] [address] [place] [address] Aug, [facility] [place] [address] [place] [address] Aug, [facility] [place] [address] [place] [address] Aug, [facility] [place] [address] [place] [address] Aug, Fibromyalgia M79.7 [facility] [place] [address] [place] [address] Aug, [facility] [place] [address] [place] [address] Aug, Fibromyalgia M79.7 [facility] [address] [place] [address] Aug, Fibromyalgia M79.7 ; Mass of right foot R22.41 and Type 2 diabetes mellitus with hyperglycemia E11.65 [facility] [place] [address] [place] [address] Jun, [facility] [place] [address] [place] [address] Jun, Furuncle L02.92 and Methicillin resistant Staph aureus culture positive Z22.322 [facility] [address] [place] [address] Jun, Furuncle L02.92 ; Cellulitis of other specified site L03.818 and Methicillin resistant Staph aureus culture positive Z22.322 [facility] [place] [address] [place] [address] Jun, [facility] [place] [address] [place] [address] Jun, Furuncle L02.92 and Cellulitis of other specified site L03.818 [facility] [place] [address] [place] [address] May, Pure hyperglyceridemia E78.1 ; Abscess L02.91 ; Restless legs syndrome G25.81 and Type 2 diabetes mellitus with hyperglycemia E11.65 [facility] [place] [address] [place] [address] May, [facility] [place] [address] [place] [address] May, [facility] [place] [address] [place] [address] May, [facility] [place] [address] [place] [address] Apr, [facility] [place] [address] [place] [address] Mar, Well woman exam Z01.419 ; Encounter for screening mammogram for breast cancer Z12.31 and History of cervical cancer Z85.41 [facility] [address] [place] [address] Mar, Insect bite, multiple W57.XXXA ; Type 2 diabetes mellitus with diabetic neuropathy, unspecified E11.40 ; Essential (primary) hypertension I10 ; DM neuro manif type II E11.40 and Restless legs syndrome G25.81 [facility] [address] [place] [address] Feb, [facility] [address] [place] [address] Feb, [facility] [address] [place] [address] Feb, [facility] [address] [address] Jan, [facility] [address] [place] [address] Jan, [facility] [address] [place] [address] Jan, Abscess L02.91 [facility] [address] [place] [address] December, DM neuro manif type II E11.40 ; Pure hyperglyceridemia E78.1 ; Essential (primary) hypertension I10 and Type 2 diabetes mellitus without complication E11.9 [facility] [address] [place] [address] Oct, [facility] [place] [address] [place] [address] Sep, [facility] [address] [place] [address] Sep, [facility] [place] [address] [place] [address] Sep, [facility] [address] [address] Sep, Type 2 diabetes mellitus without complication E11.9 ; Pure hyperglyceridemia E78.1 ; Cardiac murmur, unspecified R01.1 and Essential (primary) hypertension I10 [facility] [place] [address] [place] [address] Aug, [facility] [place] [address] [place] [address] Jul, [facility] [place] [address] [place] [address] Jul, [facility] [place] [address] [place] [address] Jun, [facility] [place] [address] [place] [address] Jun, [facility] [place] [address] [place] [address] May, [facility] [place] [address] [place] [address] May, [facility] [place] [address] [place] [address] May, [facility] [place] [address] [place] [address] May, [facility] [place] [address] [place] [address] May, [facility] [place] [address] [place] [address] May, [facility] [place] [address] [place] [address] Apr, Onychomycosis 110.1 [facility] [place] [address] [place] [address] 15 Apr, 2015 [facility] [place] [address] [place] [address] 14 Apr, 2015 Nail dystrophy 703.8 [facility] [place] [address] [place] [address] 08 Apr, 2015 Ingrown nail 703.0 [facility] [place] [address] [place] [address] 04 Apr, 2015 Ingrown nail 703.0 [facility] [place] [address] [place], [place] [address], [place] [address] Mar, [facility] [address] [place] [address] Mar, Diabetic neuropathy 250.60 ; Fibromyalgia 729.1 and Lumbago 724.2 [facility] [address] [place] [address] Mar, [facility] [address] [place] [address] Jan, Diabetes mellitus without mention of complication, type II or unspecified type, uncontrolled 250.02 and Hypomagnesemia 275.2 [facility] [address] [place] [address] Jan, [facility] [address] [address] Jan, Coronary atherosclerosis of unspecified type of vessel, [place] or graft 414.00 ; Essential hypertension, benign 401.1 ; Other and unspecified hyperlipidemia 272.4 ; Diabetes mellitus without mention of complication, type II or unspecified type, uncontrolled 250.02 ; Depressive disorder, not elsewhere classified 311 and Restless legs syndrome [RLS] 333.94 [facility] [address] [place] [address] Jan, [address] [address] December, Sciatica 724.3 ; Muscle spasm 728.85 ; UTI (urinary tract infection) 599.0 and Dysuria 788.1 [facility] [address] [place] [address] December, [facility] [address] [place] [address] December, Scabies 133.0 and Leg pain 729.5 [facility] [address] [place], [place] [id number] [address] Nov, [place] [id number] [address] Nov, [facility] [address] [place] [address] Aug, [facility] [address] [address] Aug, [facility] [place] [address] [place] [address] Jul, [facility] [address] [address] Jul, [facility] [place] [address] [place] [address] Jul, [facility] [address] [address] Jul, [facility] [place] [address] [place] [address] Jul, [facility] [address] [address] Jul, [facility] [place] [address] [place] [address] Jun, [facility] [address] [address] Jun, [facility] [place] [address] [place] [address] Jun, [facility] [address] [address] Jun, [facility] [place] [address] [place] [address] May, [facility] [address] [address] May, [facility] [address] [address] Apr, [facility] [address], [place] [address] Apr, [facility] [place] [address] [place] [address] Apr, [facility] [address] [address] Apr, 2013 [facility] [place] [address] [place] [address] Apr, 2013 [facility] [address] [place] [id number] [address] Apr, 2013 [facility] [address] [id number] [address] Apr, 2013 [facility] [place] [address] [place] [address] Apr, 2013 [facility] [address] [address] [id number] [address] Apr, 2013 [facility] [place] [address] [place] [address] Apr, 2013 [facility] [address] [place] [address] [id number] [address] Apr, 2013 [facility] [address] [id number] [address] Apr, 2013 [facility] [place] [address] [place] [address] Apr, [facility] [place] [address] [place] [address] Apr, [facility] [address] [id number] [address] Apr, [facility] [address] [id number] [address] Apr, 2013 [facility] [place] [address] [place] [address] Mar, [facility] [address] [place] [id number] [place] [address] Mar, [facility] [place] [address] [place] [address] Mar, [facility] [address] [address] [id number] [address] Mar, [facility] [place] [address] [facility] [place] [address] Feb, [facility] [place] [facility] [address] [facility] [id number] [address] Feb, [facility] [place] [address] [facility] [place] [address] December, [facility] [place] [facility] [address] [address] [id number] [address] December, [facility] [place] [address] [facility] [place] [address] December, [facility] [place] [facility] [address] [address] [id number] [address] December, [facility] [place] [address] [facility] [place] [address] Nov, [facility] [place] [facility] [address] [address] [id number] [address] Nov, [facility] [place] [address] [facility] [place] [address] Nov, [facility] [place] [facility] [address] [place] [id number] [address] Nov, [facility] [place] [address] [place] [address] Nov, [facility] [place] [facility] [address] [address] [id number] [address] Nov, [facility] [place] [facility] [address] [facility] [id number] [address] Oct, [facility] [place] [facility] [address] [facility] [id number] [place] [address] Oct, [facility] [place] [facility] [address] [place] [id number] [address] Aug, [facility] [place] [facility] [address] [facility] [id number] [address] Aug, [facility] [place] [address] [facility] [place] [address] Aug, [facility] [place] [facility] [address] [id number] [place] [address] Aug, [facility] [place] [facility] [address] [id number] [place] [address] Aug, [facility] [place] [facility] [address] [facility] [id number] [place] [address] Aug, [facility] [address] [facility] [address] Jul, [facility] [place] [facility] [address] [id number] [place] [address] Jul, [facility] [place] [facility] [address] [id number] [place] [address] Jul, [facility] [place] [facility] [address] [facility] [id number] [place] [address] Jul, [facility] [place] [facility] [address] [id number] [place] [address] Jun, [facility] [place] [facility] [address] [id number] [place] [address] Jun, [facility] [place] [facility] [address] [id number] [place] [address] Jun, [facility] [place] [facility] [address] [facility] [id number] [address] Jun, [facility] [place] [facility] [address] [id number] [address] Jun, [facility] [place] [facility] [address] [id number] [address] Jun, [facility] [place] [facility] [address] [id number] [place] [address] Jun, [facility] [place] [facility] [address] [facility] [id number] [address] Jun, [facility] [place] [facility] [address] [id number] [address] Jun, [facility] [place] [facility] [address] [id number] [place] [address] May, [facility] [place] [facility] [address] [id number] [place] [address] 18 May, 2013 [facility] [place] [facility] [address] [id number] [place] [address] 16 May, 2013 [facility] [place] [facility] [address] [id number] [place] [address] 16 May, 2013 [facility] [place] [facility] [address] [id number] [place] [address] 14 May, 2013 [facility] [place] [facility] [address] [id number] [place] [address] 14 May, 2013 [facility] [place] [facility] [address] [id number] [place] [address] May, [facility] [place] [facility] [address] [id number] [place] [address] Apr, [facility] [place] [facility] [address] [id number] [place] [address] Mar, [facility] [place] [facility] [address] [id number] [place] [address] Mar, [facility] [place] [facility] [address] [id number] [place] [address] Mar, [facility] [place] [facility] [address] [id number] [place] [address] Mar, [facility] [place] [facility] [address] [id number] [place] [address] Feb, [facility] [place] [facility] [address] [id number] [place] [address] Feb, [facility] [place] [facility] [address] [id number] [place] [address] Feb, [facility] [place] [facility] [address] [id number] [place] [address] Feb, [facility] [address] [facility] [id number] [address] Feb, [facility] [address] [id number] [address] Feb, [facility] [address] [id number], [place] [address] Jan, [facility] [address] [id number], [place] [address] Jan, [facility] [address] [id number] [address] Jan, [facility] [address] [id number], [place] [address] Jan, IMMUNIZATIONS No Known Immunizations SOCIAL HISTORY Never Assessed REASON FOR VISIT last weeks labs results [facility] PLAN OF CARE Activity Details Follow Up prn, 3 Months Reason: VITAL SIGNS Height 63 in 2018-03-08 Weight 151 lbs 2018-03-08 Temperature 97.0 degrees Fahrenheit 2018-03-08 Heart Rate 97 bpm 2018-03-08 Respiratory Rate 20 2018-03-08 BMI 26.75 kg/m2 2018-03-08 Blood pressure systolic 144 mmHg 2018-03-08 Blood pressure diastolic 76 mmHg 2018-03-08 MEDICATIONS Medication Instructions Dosage Frequency Start Date End Date Duration Status Duloxetine HCl 60 mg Orally Once a day 2 capsule 24h Active Magnesium 250 MG Orally Once a day 1 tablet with a meal 24h Active Aspirin 81 MG Orally Once a day 1 tablet 24h Active Atorvastatin Calcium 40 mg Orally Once a day 1 tablet 24h May, 90 days Active Advair Diskus 250-50 MCG/DOSE by inhalation route Twice a day 1 puff 12h Active Protonix 40 MG Orally Once a day 1 packet 24h Apr, 30 day(s) Active Cymbalta 60 mg Orally Once a day 2 tablets 24h Active MetFORMIN HCl ER 500 mg Orally 2 times a day 1 tablet with evening meal 12h Jan, 30 day(s) Active Ropinirole HCl 1 MG Orally at noon 1 tablet at noon and 2 at hs 03 Jun, 2016 30 days Active Metoprolol Tartrate 50 mg Orally Twice a day 1 tablet 12h 12 Aug, 2016 90 days Active Lisinopril 10 MG Orally Once a day 1 tablet 24h 30 days Active RESULTS No Results PROCEDURES No Known procedures INSTRUCTIONS MEDICATIONS ADMINISTERED No Known Medications MEDICAL (GENERAL) HISTORY Type Description Date Medical History Atherosclerotic heart disease of [place] coronary artery without angina pectoris Medical History [...]
--- OUTSIDE RECORDS SUMMARY | 2019-02-01 09:09 | XMS REPORT ---
Author Author SJ ALY [facility] [address] [place] [address] Care Team Providers Care Buggyman Name Role Phone SJ ALY Unavailable PROBLEMS Type Condition ICD9-CM Code ATC09-SO Code Onset Dates Condition Status SNOMED Code Problem Essential (primary) hypertension I10 Active 67620721 Problem Type 2 diabetes mellitus with hyperglycemia E11.65 Active 910739500928873 Problem Pure hyperglyceridemia E78.1 Active 411924300 Problem Chronic obstructive pulmonary disease, unspecified COPD type J44.9 Active 36578842 Problem Essential hypertension I10 Active 48843425 Problem Restless legs syndrome G25.81 Active 36752249 Problem Type 2 diabetes mellitus with diabetic neuropathy, unspecified E11.40 Active 1163291177535 Problem DM neuro manif type II E11.40 Active 465509313 Problem Fibromyalgia M79.7 Active 663457491 Problem Solitary pulmonary nodule 793.11 Active 594618398 Problem Unspecified hypertrophic and atrophic condition of skin 701.9 Active 997504829 Problem Hypomagnesemia 275.2 Active 769065606 Problem Diabetic neuropathy 250.60 Active 374571695 Problem Coronary atherosclerosis of unspecified type of vessel, [place] or graft 414.00 Active 828314480 Problem Type 2 diabetes mellitus without complication E11.9 Active 23878971 Problem Depressive disorder, not elsewhere classified 311 Active 50208361 Problem Cardiac murmur, unspecified R01.1 Active 038429005 ALLERGIES No Information ENCOUNTERS Encounter Location Date Diagnosis [facility] [address] [place] [address] Mar, [facility] [address] [place] [address] Feb, Restless legs syndrome G25.81 and Fibromyalgia M79.7 [facility] [address] [place] [address] Feb, Essential hypertension I10 and Type 2 diabetes mellitus with hyperglycemia E11.65 [facility] [address] [place] [address] 16 Feb, 2018 Essential (primary) hypertension I10 and Exposure to hepatitis C Z20.5 [facility] [address] [place] [place] [address] Jan, [facility] [address] [place] [address] Jan, [facility] [address] [place] [address] Jan, [facility] [address] [place] [address] Jan, [facility] [address] [place] [address] Jan, [facility] [address] [place] [address] Jan, [facility] [address] [place] [address] December, Essential (primary) hypertension I10 [facility] [address] [place] [address] December, Restless legs syndrome G25.81 [facility] [address] [place] [address] December, Restless legs syndrome G25.81 [facility] [address] [place] [address] December, Restless legs syndrome G25.81 [facility] [address] [place] [address] December, Restless legs syndrome G25.81 [facility] [address] [place] [address] Nov, [facility] [address] [place] [address] Nov, Type 2 diabetes mellitus with hyperglycemia E11.65 [facility] [address] [facility] [id number] [place] [address] 16 Nov, 2017 Essential hypertension I10 [facility] [address] [place] [address] Oct, Restless legs syndrome G25.81 [facility] [address] [place] [address] Aug, Type 2 diabetes mellitus with hyperglycemia E11.65 ; Restless legs syndrome G25.81 ; Fibromyalgia M79.7 ; Essential hypertension I10 and Urinary urgency R39.15 [facility] [address] [place] [address] May, [facility] [address] [address] [place] [address] May, Type 2 diabetes mellitus with hyperglycemia E11.65 [facility] [address] [place] [address] May, [facility] [address] [place] [address] Apr, Type 2 diabetes mellitus with hyperglycemia E11.[address] [facility] [address] [address] Apr, [facility] [address] [address] Apr, Hospital discharge follow-up Z09 ; Cardiac murmur, unspecified R01.1 ; Tobacco abuse Z72.0 and Chronic obstructive pulmonary disease, unspecified COPD type J44.[address] [facility] [address] [address] Mar, Type 2 diabetes mellitus with hyperglycemia E11.65 [facility] [address] [address] Feb, Type 2 diabetes mellitus with hyperglycemia E11.65 and Essential hypertension I10 [facility] [address] [place] [address] Feb, Restless legs syndrome G25.81 ; Type 2 diabetes mellitus with hyperglycemia E11.65 ; Essential hypertension I10 and Right upper quadrant pain R10.11 [facility] [address] [place] [address] Feb, [facility] [address] [place] [address] Feb, [facility] [address] [place] [address] Jan, Type 2 diabetes mellitus with hyperglycemia E11.65 and Right sided abdominal pain R10.9 [facility] [address] [place] [address] Jan, [facility] [address] [place] [address] Jan, Nausea R11.0 ; Essential hypertension I10 and Dizziness R42 [facility] [address] [place] [address] Jan, [facility] [address] [place] [address] Nov, [facility] [address] [place] [address] Nov, [facility] [address] [place] [address] Oct, [facility] [address] [place] [address] Oct, [facility] [address] [place] [address] Oct, [facility] [address] [place] [address] Sep, [facility] [address] [facility] [id number] [place] [address] Sep, Ganglion of tendon M67.40 and DM neuro manif type II E11.40 [facility] [address] [place] [address] Aug, Pure hyperglyceridemia E78.1 [facility] [address] [place] [address] Aug, [facility] [address] [place] [address] Aug, [facility] [address] [place] [address] Aug, [facility] [address] [place] [address] Aug, Fibromyalgia M79.7 [facility] [address] [place] [address] Aug, [facility] [address] [place] [address] Aug, Fibromyalgia M79.7 [facility] [address] [address] Aug, Fibromyalgia M79.7 ; Mass of right foot R22.41 and Type 2 diabetes mellitus with hyperglycemia E11.65 [facility] [address] [address] Jun, [facility] [address] [address] Jun, Furuncle L02.92 and Methicillin resistant Staph aureus culture positive Z22.[address] [address] Jun, Furuncle L02.92 ; Cellulitis of other specified site L03.818 and Methicillin resistant Staph aureus culture positive Z22.[address] [place] [address] Jun, [facility] [address] [address] Jun, Furuncle L02.92 and Cellulitis of other specified site L03.818 [facility] [address] [address] May, Pure hyperglyceridemia E78.1 ; Abscess L02.91 ; Restless legs syndrome G25.81 and Type 2 diabetes mellitus with hyperglycemia E11.65 [facility] [address] [address] May, [facility] [address] [address] May, [facility] [address] [address] May, [facility] [address] [address] Apr, [facility] [address] [address] Mar, Well woman exam Z01.419 ; Encounter for screening mammogram for breast cancer Z12.31 and History of cervical cancer Z85.41 [facility] [address] [place] [address] Mar, Insect bite, multiple W57.XXXA ; Type 2 diabetes mellitus with diabetic neuropathy, unspecified E11.40 ; Essential (primary) hypertension I10 ; DM neuro manif type II E11.40 and Restless legs syndrome G25.81 [facility] [address] [place] [address] Feb, [facility] [address] [place] [address] Feb, [facility] [address] [place] [address] Feb, [facility] [address] [place] [address] Jan, [facility] [address] [place] [address] Jan, [facility] [address] [place] [address] Jan, Abscess L02.91 [facility] [address] [place] [address] December, DM neuro manif type II E11.40 ; Pure hyperglyceridemia E78.1 ; Essential (primary) hypertension I10 and Type 2 diabetes mellitus without complication E11.9 [facility] [address] [place] [address] Oct, [facility] [address] [place] [address] Sep, [facility] [address] [place] [address] Sep, [facility] [address] [place] [address] Sep, [facility] [address] [place] [address] Sep, Type 2 diabetes mellitus without complication E11.9 ; Pure hyperglyceridemia E78.1 ; Cardiac murmur, unspecified R01.1 and Essential (primary) hypertension I10 [facility] [address] [place] [address] Aug, [facility] [address] [place] [address] Jul, [facility] [address] [place] [address] Jul, [facility] [address] [place] [address] Jun, [facility] [address] [place] [address] Jun, [facility] [address] [place] [address] May, [facility] [address] [place] [address] May, [facility] [address] [place] [address] May, [facility] [address] [place] [address] May, [facility] [address] [place] [address] May, [facility] [address] [place] [address] May, [facility] [address] [place] [address] 29 Apr, 2015 Onychomycosis 110.1 [facility] [address] [place] [address] 15 Apr, 2015 [facility] [address] [place] [address] 14 Apr, 2015 Nail dystrophy 703.8 [facility] [address] [place] [address] 08 Apr, 2015 Ingrown nail 703.0 [facility] [address] [place] [address] 04 Apr, 2015 Ingrown nail 703.0 [facility] [address] [place] [address] 18 Mar, 2015 [facility] [address] [place] [address] Mar, Diabetic neuropathy 250.60 ; Fibromyalgia 729.1 and Lumbago 724.[address] [address] Mar, [address] [address] Jan, Diabetes mellitus without mention of complication, type II or unspecified type, uncontrolled 250.02 and Hypomagnesemia 275.[address] [address] Jan, [address] [address] Jan, Coronary atherosclerosis of unspecified type of vessel, [place] or graft 414.00 ; Essential hypertension, benign 401.1 ; Other and unspecified hyperlipidemia 272.4 ; Diabetes mellitus without mention of complication, type II or unspecified type, uncontrolled 250.02 ; Depressive disorder, not elsewhere classified 311 and Restless legs syndrome [RLS] 333.[address] [address] Jan, [address] [address] December, Sciatica 724.3 ; Muscle spasm 728.85 ; UTI (urinary tract infection) 599.0 and Dysuria 788.[address] [address] December, [address] [address] December, Scabies 133.0 and Leg pain 729.5 [address] [address] Nov, [address], [place] [address] Nov, [address] [address] Aug, [address] [place] [address] Aug, [facility] [address] [facility] [address] Jul, [facility] [id number], [place] [address] Jul, [facility] [address] [place] [address] Jul, [facility] [id number], [place] [address] Jul, [facility] [address] [place] [address] Jul, [facility] [address] [place] [address] Jul, [facility] [address] [place] [address] Jun, [facility] [address], [place] [address] Jun, [facility] [address] [place] [address] Jun, [facility] [address], [place] [address] Jun, [facility] [address] [place] [address] May, [facility] [id number], [place] [address] May, [facility] [id number], [place] [address] Apr, [facility] [id number] [place] [address] Apr, [facility] [address] [place] [address] Apr, [facility] [address], [place] [address] Apr, [facility] [address] [place] [address] Apr, [facility] [id number], [place] [address] Apr, [facility] [place] [facility] [id number], [place] [address] Apr, 2013 [facility] [address] [place] [address] Apr, [facility] [place] [facility] [id number], [place] [address] Apr, 2013 [facility] [address] [place] [address] Apr, [facility] [id number], [place] [address] Apr, [facility] [id number], [place] [address] Apr, [facility] [address] [place] [address] Apr, [facility] [address] [place] [address] Apr, [facility] [place] [facility] [id number], [place] [address] Apr, [facility] [id number], [place] [address] Apr, [facility] [address] [place] [address] Mar, [facility] [place] [facility] [id number], [place] [address] Mar, [facility] [address] [place] [address] Mar, [facility] [place] [facility] [id number], [place] [address] Mar, [facility] [address] [place] [address] Feb, [facility] [place] [facility] [address], [place] [address] Feb, [facility] [address] [place] [address] December, [facility] [id number], [place] [address] December, [facility] [address] [place] [address] December, [facility] [address], [place] [address] December, [facility] [address] [facility] [address] Nov, [facility] [address], [place] [address] Nov, [facility] [address] [place] [address] Nov, [facility] [address], [place] [address] Nov, [facility] [address] [place] [address] Nov, [facility] [id number], [place] [address] Nov, [facility] [id number], [place] [address] Oct, [facility] [id number], [place] [address] Oct, [facility] [place] [facility] [id number], [place] [address] Aug, [facility] [id number], [place] [address] Aug, [facility] [address] [place] [address] Aug, [facility] [address], [place] [address] Aug, [facility] [address] [id number] [place] [address] Aug, [facility] [address] [id number] [place] [address] Aug, [facility] [address] [facility] [place] [address] Jul, [facility] [place] [facility] [address] [id number] [place] [address] Jul, [facility] [place] [facility] [address] [id number] [place] [address] Jul, [facility] [place] [facility] [address] [id number] [place] [address] Jul, [facility] [place] [facility] [address] [facility] [id number] [place] [address] Jun, [facility] [place] [facility] [address] [id number], [place] [address] Jun, [facility] [place] [facility] [address] [id number] [place] [address] Jun, [facility] [place] [facility] [address] [id number], [place] [address] Jun, [facility] [place] [facility] [address] [facility] [id number], [place] [address] Jun, [facility] [place] [facility] [address] [id number], [place] [address] Jun, [facility] [place] [facility] [address] [id number], [place] [address] Jun, [facility] [place] [facility] [address] [id number], [place] [address] Jun, [facility] [place] [facility] [address] [facility] [id number], [place] [address] Jun, [facility] [place] [facility] [address] [id number], [place] [address] 18 May, 2013 [facility] [place] [facility] [address] [id number] [place] [address] 18 May, 2013 [facility] [place] [facility] [address] [id number] [place] [address] 16 May, 2013 [facility] [place] [facility] [address] [id number] [place] [address] 16 May, 2013 [facility] [place] [facility] [address] [id number] [place] [address] 14 May, 2013 [facility] [place] [facility] [address] [id number] [place] [address] 14 May, 2013 [facility] [place] [facility] [address] [id number] [place] [address] 04 May, 2013 [facility] [place] [facility] [address] [id number] [place] [address] 04 Apr, 2013 [facility] [place] [facility] [address] [id number] [place] [address] Mar, [facility] [place] [facility] [address] [id number] [place] [address] Mar, [facility] [place] [facility] [address] [id number] [place] [address] Mar, [facility] [place] [facility] [address] [id number] [place] [address] Mar, [facility] [place] [facility] [address] [id number], [place] [address] Feb, [facility] [place] [facility] [address] [id number] [place] [address] Feb, [facility] [place] [facility] [address] [id number] [place] [address] Feb, [facility] [place] [facility] [address] [id number] [place] [address] Feb, [facility] [place] [facility] [address] [id number] [place] [address] Feb, [facility] [address] [facility] [id number], [place] [address] Feb, [facility] [id number], [place] [address] Jan, [facility] [address] [facility] [id number], [place] [address] Jan, [facility] [address] [facility] [id number], [place] [address] Jan, [facility] [address] [facility] [id number], [place] [address] Jan, IMMUNIZATIONS No Known Immunizations SOCIAL HISTORY Never Assessed REASON FOR VISIT Repository Meds PLAN OF CARE VITAL SIGNS MEDICATIONS Medication Instructions Dosage Frequency Start Date End Date Duration Status Metoprolol Tartrate 50 mg Orally Twice a day 1 tablet 12h Aug, 90 days Active MetFORMIN HCl ER 500 mg Orally 2 times a day 1 tablet with evening meal 12h Jan, 30 day(s) Active RESULTS No Results PROCEDURES No Known procedures INSTRUCTIONS MEDICATIONS ADMINISTERED No Known Medications MEDICAL (GENERAL) HISTORY Type Description Date Medical History Atherosclerotic heart disease of [place] coronary artery without angina pectoris Medical History [...]
--- OUTSIDE RECORDS SUMMARY | 2019-02-01 09:09 | XMS REPORT ---
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 Name Role Phone SJ ALY Unavailable PROBLEMS Type Condition ICD9-CM Code GGN32-RB Code Onset Dates Condition Status SNOMED Code Problem Essential (primary) hypertension I10 Active 34310182 Problem Type 2 diabetes mellitus with hyperglycemia E11.65 Active 298579948612576 Problem Pure hyperglyceridemia E78.1 Active 833130284 Problem Chronic obstructive pulmonary disease, unspecified COPD type J44.9 Active 97579633 Problem Essential hypertension I10 Active 97021920 Problem Restless legs syndrome G25.81 Active 59835996 Problem Type 2 diabetes mellitus with diabetic neuropathy, unspecified E11.40 Active 7043609819303 Problem DM neuro manif type II E11.40 Active 394462402 Problem Fibromyalgia M79.7 Active 966486382 Problem Solitary pulmonary nodule 793.11 Active 088286175 Problem Unspecified hypertrophic and atrophic condition of skin 701.9 Active 124422913 Problem Hypomagnesemia 275.2 Active 651882827 Problem Diabetic neuropathy 250.60 Active 106268855 Problem Coronary atherosclerosis of unspecified type of vessel, kobuk or graft 414.00 Active 103134462 Problem Type 2 diabetes mellitus without complication E11.9 Active 22232727 Problem Depressive disorder, not elsewhere classified 311 Active 51432823 Problem Cardiac murmur, unspecified R01.1 Active 555726259 ALLERGIES Substance Reaction Event Type Date Status Hydrocodone-Acetaminophen itching Drug Allergy Feb, Active Acetaminophen-Codeine #3 itching Drug Allergy Feb, Active ENCOUNTERS Encounter Location Date Diagnosis [facility] [address] [place] [address] Mar, [facility] [address] [place] [address] Feb, Restless legs syndrome G25.81 and Fibromyalgia M79.7 [facility] [address] [place] [address] Feb, Essential hypertension I10 and Type 2 diabetes mellitus with hyperglycemia E11.65 [facility] [address] [place] [address] Feb, Essential (primary) hypertension I10 and Exposure to hepatitis C Z20.5 [facility] [address] [place] [address] Jan, [facility] [place] [address] [place] [address] Jan, [facility] [address] [place] [address] Jan, [facility] [place] [address] [place] [address] Jan, z[facility] [place] [address] [place] [address] Jan, [facility] [place] [address] [place] [address] Jan, [facility] [place] [address] [place] [address] December, Essential (primary) hypertension I10 znancy[facility] [place] [address] [place] [address] December, Restless legs syndrome G25.81 [facility] [place] [address] [place] [address] December, Restless legs syndrome G25.81 [facility] [place] [address] [place] [address] December, Restless legs syndrome G25.81 [facility] [place] [address] [place] [address] December, Restless legs syndrome G25.81 [facility] [address] [place] [address] Nov, [facility] [place] [address] [place] [address] Nov, Type 2 diabetes mellitus with hyperglycemia E11.65 [facility] [address] [facility] [id number] [place] [address] Nov, Essential hypertension I10 [facility] [place] [address] [place] [address] Oct, Restless legs syndrome G25.[address] [address] Aug, Type 2 diabetes mellitus with hyperglycemia E11.65 ; Restless legs syndrome G25.81 ; Fibromyalgia M79.7 ; Essential hypertension I10 and Urinary urgency R39.15 [facility] [address] [place] [address] May, [facility] [place] [address] [place] [address] May, Type 2 diabetes mellitus with hyperglycemia E11.65 [facility] [address] [place] [address] May, [facility] [address] [address] Apr, Type 2 diabetes mellitus with hyperglycemia E11.65 [facility] [address] [place] [address] Apr, [facility] [address] [address] Apr, Hospital discharge follow-up Z09 ; Cardiac murmur, unspecified R01.1 ; Tobacco abuse Z72.0 and Chronic obstructive pulmonary disease, unspecified COPD type J44.[address] [facility] [address] [address] Mar, Type 2 diabetes mellitus with hyperglycemia E11.65 [facility] [place] [address] [place] [address] Feb, Type 2 diabetes mellitus with hyperglycemia E11.65 and Essential hypertension I10 [facility] [place] [address] [place] [address] Feb, Restless legs syndrome G25.81 ; Type 2 diabetes mellitus with hyperglycemia E11.65 ; Essential hypertension I10 and Right upper quadrant pain R10.11 [facility] [place] [address] [place] [address] Feb, [facility] [place] [address] [place] [address] Feb, [facility] [place] [address] [place] [address] Jan, Type 2 diabetes mellitus with hyperglycemia E11.65 and Right sided abdominal pain R10.9 [facility] [place] [address] [place] [address] Jan, [facility] [place] [address] [place] [address] Jan, Nausea R11.0 ; Essential hypertension I10 and Dizziness R42 [facility] [place] [address] [place] [address] Jan, [facility] [place] [address] [place] [address] Nov, [facility] [place] [address] [place] [address] Nov, [facility] [place] [address] [place] [address] Oct, [facility] [place] [address] [place] [address] Oct, [facility] [address] [place] [address] Oct, [facility] [address] [place] [address] Sep, [facility] [place] [address] [facility] [id number] [place] [address] Sep, Ganglion of tendon M67.40 and DM neuro manif type II E11.40 [facility] [place] [address] [place] [address] Aug, Pure hyperglyceridemia E78.1 [facility] [place] [address] [place] [address] Aug, [facility] [place] [address] [place] [address] Aug, [facility] [place] [address] [place] [address] Aug, [facility] [place] [address] [place] [address] Aug, Fibromyalgia M79.7 [facility] [place] [address] [place] [address] Aug, [facility] [place] [address] [place] [address] Aug, Fibromyalgia M79.7 [facility] [address] [place] [address] Aug, Fibromyalgia M79.7 ; Mass of right foot R22.41 and Type 2 diabetes mellitus with hyperglycemia E11.65 [facility] [place] [address] [place] [address] Jun, [facility] [place] [address] [place] [address] Jun, Furuncle L02.92 and Methicillin resistant Staph aureus culture positive Z22.322 [facility] [place] [address] [place] [address] Jun, Furuncle L02.92 ; Cellulitis of other specified site L03.818 and Methicillin resistant Staph aureus culture positive Z22.322 [facility] [place] [address] [place] [address] Jun, [facility] [place] [address] [place] [address] Jun, Furuncle L02.92 and Cellulitis of other specified site L03.818 [facility] [place] [address] [place] [address] May, Pure hyperglyceridemia E78.1 ; Abscess L02.91 ; Restless legs syndrome G25.81 and Type 2 diabetes mellitus with hyperglycemia E11.65 [facility] [place] [address] [place] [address] May, [facility] [place] [address] [place] [address] May, [facility] [place] [address] [place] [address] May, [facility] [place] [address] [place] [address] Apr, [facility] [place] [address] [place] [address] Mar, Well woman exam Z01.419 ; Encounter for screening mammogram for breast cancer Z12.31 and History of cervical cancer Z85.41 [facility] [address] [place] [address] Mar, Insect bite, multiple W57.XXXA ; Type 2 diabetes mellitus with diabetic neuropathy, unspecified E11.40 ; Essential (primary) hypertension I10 ; DM neuro manif type II E11.40 and Restless legs syndrome G25.81 [facility] [address] [place] [address] Feb, [facility] [address] [place] [address] Feb, [facility] [address] [place] [address] Feb, [facility] [address] [address] Jan, [facility] [address] [place] [address] Jan, [facility] [address] [place] [address] Jan, Abscess L02.91 [facility] [address] [place] [address] December, DM neuro manif type II E11.40 ; Pure hyperglyceridemia E78.1 ; Essential (primary) hypertension I10 and Type 2 diabetes mellitus without complication E11.9 [facility] [address] [place] [address] Oct, [facility] [place] [address] [place] [address] Sep, [facility] [address] [place] [address] Sep, [facility] [place] [address] [place] [address] Sep, [facility] [address] [address] Sep, Type 2 diabetes mellitus without complication E11.9 ; Pure hyperglyceridemia E78.1 ; Cardiac murmur, unspecified R01.1 and Essential (primary) hypertension I10 [facility] [place] [address] [place] [address] Aug, [facility] [place] [address] [place] [address] Jul, [facility] [place] [address] [place] [address] Jul, [facility] [place] [address] [place] [address] Jun, [facility] [place] [address] [place] [address] Jun, [facility] [place] [address] [place] [address] May, [facility] [place] [address] [place] [address] May, [facility] [place] [address] [place] [address] May, [facility] [place] [address] [place] [address] May, [facility] [place] [address] [place] [address] May, [facility] [place] [address] [place] [address] May, [facility] [place] [address] [place] [address] Apr, Onychomycosis 110.1 [facility] [place] [address] [place] [address] 15 Apr, 2015 [facility] [place] [address] [place] [address] 14 Apr, 2015 Nail dystrophy 703.8 [facility] [place] [address] [place] [address] 08 Apr, 2015 Ingrown nail 703.0 [facility] [place] [address] [place] [address] 04 Apr, 2015 Ingrown nail 703.0 [facility] [place] [address] [place], [place] [address], [place] [address] Mar, [facility] [address] [place] [address] Mar, Diabetic neuropathy 250.60 ; Fibromyalgia 729.1 and Lumbago 724.2 [facility] [address] [place] [address] Mar, [facility] [address] [place] [address] Jan, Diabetes mellitus without mention of complication, type II or unspecified type, uncontrolled 250.02 and Hypomagnesemia 275.2 [facility] [address] [place] [address] Jan, [facility] [address] [address] Jan, Coronary atherosclerosis of unspecified type of vessel, kobuk or graft 414.00 ; Essential hypertension, benign 401.1 ; Other and unspecified hyperlipidemia 272.4 ; Diabetes mellitus without mention of complication, type II or unspecified type, uncontrolled 250.02 ; Depressive disorder, not elsewhere classified 311 and Restless legs syndrome [RLS] 333.94 [facility] [address] [place] [address] Jan, [address] [address] December, Sciatica 724.3 ; Muscle spasm 728.85 ; UTI (urinary tract infection) 599.0 and Dysuria 788.1 [facility] [address] [place] [address] December, [facility] [address] [place] [address] December, Scabies 133.0 and Leg pain 729.5 [facility] [place] [address] [place], [place] [id number] [address] Nov, [place] [id number] [address] Nov, [facility] [address] [place] [address] Aug, [facility] [place] [address] [address] Aug, [facility] [place] [address] [place] [address] Jul, [facility] [place] [address] [address] Jul, [facility] [place] [address] [place] [address] Jul, [facility] [place] [address] [address] Jul, [facility] [place] [address] [place] [address] Jul, [facility] [place] [address]100[place] [address] Jul, [facility] [place] [address] [place] [address] Jun, [facility] [place] [address] [address] Jun, [facility] [place] [address] [place] [address] Jun, [facility] [place] [address] [address] Jun, [facility] [place] [address] [place] [address] May, [facility] [place] [address] [address] May, [facility] [place] [address] [address] Apr, [facility] [place] [address] [address] Apr, [facility] [place] [address] [place] [address] Apr, [facility] [place] [address] [address] Apr, 2013 [facility] [place] [address] [place] [address] Apr, 2013 [facility] [id number] [address] Apr, 2013 [facility] [id number] [address] Apr, 2013 [facility] [place] [address] [place] [address] Apr, 2013 [facility] [id number] [address] Apr, 2013 [facility] [place] [address] [place] [address] Apr, 2013 [facility] [id number] [address] Apr, 2013 [facility] [id number] [address] Apr, 2013 [facility] [place] [address] [place] [address] Apr, [facility] [place] [address] [place] [address] Apr, [facility] [id number] [address] Apr, [facility] [id number] [address] Apr, 2013 [facility] [place] [address] [place] [address] Mar, [facility] [id number] [place] [address] Mar, [facility] [place] [address] [place] [address] Mar, [facility] [id number] [address] Mar, [facility] [place] [address] [facility] [place] [address] Feb, [facility] [place] [facility] [address] [facility] [id number] [address] Feb, [facility] [place] [address] [facility] [place] [address] December, [facility] [place] [facility] [id number] [address] December, [facility] [place] [address] [place] [facility] [place] [address] December, [facility] [place] [facility] [id number] [address] December, [facility] [place] [address] [facility] [place] [address] Nov, [facility] [place] [facility] [id number] [address] Nov, [facility] [place] [address] [facility] [place] [address] Nov, [facility] [place] [facility] [id number] [address] Nov, [facility] [place] [address] [place] [address] Nov, [facility] [place] [facility] [id number] [address] Nov, [facility] [place] [facility] [address] [facility] [id number] [address] Oct, [facility] [place] [facility] [address] [facility] [id number] [place] [address] Oct, [facility] [place] [facility] [address] [id number] [address] Aug, [facility] [place] [facility] [address] [facility] [id number] [address] Aug, [facility] [place] [address] [facility] [place] [address] Aug, [facility] [place] [facility] [address] [id number] [place] [address] Aug, [facility] [place] [facility] [address] [id number] [place] [address] Aug, [facility] [place] [facility] [address] [facility] [id number] [place] [address] Aug, nancyJhonatan [facility] [address] [place] [address] Jul, [facility] [place] [facility] [address] [id number] [place] [address] Jul, [facility] [place] [facility] [address] [id number] [place] [address] Jul, [facility] [place] [facility] [address] [facility] [id number] [place] [address] Jul, [facility] [place] [facility] [address] [id number] [place] [address] Jun, [facility] [place] [facility] [address] [id number] [place] [address] Jun, [facility] [place] [facility] [address] [id number] [place] [address] Jun, [facility] [place] [facility] [address] [facility] [id number] [address] Jun, [facility] [place] [facility] [address] [id number] [address] Jun, [facility] [place] [facility] [address] [id number] [address] Jun, [facility] [place] [facility] [address] [id number] [place] [address] Jun, [facility] [place] [facility] [address] [facility] [id number] [address] Jun, [facility] [place] [facility] [address] [id number] [address] Jun, [facility] [place] [facility] [address] [id number] [place] [address] May, [facility] [place] [facility] [address] [id number] [place] [address] 18 May, 2013 [facility] [place] [facility] [address] [id number] [place] [address] 16 May, 2013 [facility] [place] [facility] [address] [id number] [place] [address] 16 May, 2013 [facility] [place] [facility] [address] [id number] [place] [address] 14 May, 2013 [facility] [place] [facility] [address] [id number] [place] [address] 14 May, 2013 [facility] [place] [facility] [address] [id number] [place] [address] May, [facility] [place] [facility] [address] [id number] [place] [address] Apr, [facility] [place] [facility] [address] [id number] [place] [address] Mar, [facility] [place] [facility] [address] [id number] [place] [address] Mar, [facility] [place] [facility] [address] [id number] [place] [address] Mar, [facility] [place] [facility] [address] [id number] [place] [address] Mar, [facility] [place] [facility] [address] [id number] [place] [address] Feb, [facility] [place] [facility] [address] [id number] [place] [address] Feb, [facility] [place] [facility] [address] [id number] [place] [address] Feb, [facility] [place] [facility] [address] [id number] [address] Feb, [facility] [place] [id number] [address] Feb, [facility] [place] [id number] [address] Feb, [facility] [place] [id number] [address] Jan, [facility] [place] [id number] [address] Jan, [facility] [place] [id number] [address] Jan, [facility] [place] [id number] [address] Jan, IMMUNIZATIONS No Known Immunizations SOCIAL HISTORY Never Assessed REASON FOR VISIT HTN, wants to know if you can check for hep C partney has it [facility] PLAN OF CARE Activity Details Follow Up prn, 1 Week Reason:HTN VITAL SIGNS Height 63 in 2018-03-01 Weight 145.9 lbs 2018-03-01 Temperature 98.1 degrees Fahrenheit 2018-03-01 Heart Rate 76 bpm 2018-03-01 Respiratory Rate 18 2018-03-01 BMI 25.84 kg/m2 2018-03-01 Blood pressure systolic 188 mmHg 2018-03-01 Blood pressure diastolic 92 mmHg 2018-03-01 MEDICATIONS Medication Instructions Dosage Frequency Start Date End Date Duration Status Protonix 40 MG Orally Once a day 1 packet 24h Apr, 30 day(s) Active Duloxetine HCl 60 mg Orally Once a day 2 capsule 24h Active MetFORMIN HCl ER 500 mg Orally 2 times a day 1 tablet with evening meal 12h Jan, 30 day(s) Active Atorvastatin Calcium 40 mg Orally Once a day 1 tablet 24h May, 90 days Active Advair Diskus 250-50 MCG/DOSE by inhalation route Twice a day 1 puff 12h Active Magnesium 250 MG Orally Once a day 1 tablet with a meal 24h Active Aspirin 81 MG Orally Once a day 1 tablet 24h Active Metoprolol Tartrate 100 mg Orally Twice a day 1/2 tablet 12h 12 Aug, 2016 Active Lisinopril 10 MG Orally Once a day 1 tablet 24h 30 days Active Cymbalta 60 mg Orally Once a day 2 tablets 24h Active Ropinirole HCl 1 MG Orally at noon 1 tablet at noon and 2 at hs 03 Jun, 2016 30 days Active RESULTS No Results PROCEDURES Procedure Date Ordered Result Body Site ACUTE HEPATITIS PANEL March 01, 2018 MANUAL CELL COUNT, EACH March 01, 2018 COMPREHEN METABOLIC PANEL March 01, 2018 VENIPUNCT, ROUTINE* March 01, 2018 ASSAY THYROID STIM HORMONE March 01, 2018 INSTRUCTIONS MEDICATIONS ADMINISTERED No Known Medications MEDICAL (GENERAL) HISTORY Type Description Date Medical History Atherosclerotic heart disease of [place] coronary artery without angina pectoris Medical History [...]
--- OUTSIDE RECORDS SUMMARY | 2019-02-01 09:10 | XMS REPORT ---
Author Author SJ ALY [facility] [address] Address [address] [place] [address] Care Team Providers Care Java Manager Name Role Phone ALYSJ Unavailable PROBLEMS Type Condition ICD9-CM Code XTS07-MD Code Onset Dates Condition Status SNOMED Code Problem Essential (primary) hypertension I10 Active 03276237 Problem Type 2 diabetes mellitus with hyperglycemia E11.65 Active 473809164624380 Problem Pure hyperglyceridemia E78.1 Active 474278807 Problem Chronic obstructive pulmonary disease, unspecified COPD type J44.9 Active 30219003 Problem Essential hypertension I10 Active 41391328 Problem Restless legs syndrome G25.81 Active 53193094 Problem Type 2 diabetes mellitus with diabetic neuropathy, unspecified E11.40 Active 2143321135951 Problem DM neuro manif type II E11.40 Active 415305527 Problem Fibromyalgia M79.7 Active 320370919 Problem Solitary pulmonary nodule 793.11 Active 789081726 Problem Unspecified hypertrophic and atrophic condition of skin 701.9 Active 223162611 Problem Hypomagnesemia 275.2 Active 276439075 Problem Diabetic neuropathy 250.60 Active 627247336 Problem Coronary atherosclerosis of unspecified type of vessel, [place] or graft 414.00 Active 427265621 Problem Type 2 diabetes mellitus without complication E11.9 Active 50353534 Problem Depressive disorder, not elsewhere classified 311 Active 59904726 Problem Cardiac murmur, unspecified R01.1 Active 222251896 ALLERGIES No Information ENCOUNTERS Encounter Location Date Diagnosis [facility] [address] [place] [address] Mar, [facility] [address] [place] [address] Feb, Restless legs syndrome G25.81 and Fibromyalgia M79.7 [facility] [address] [place] [address] Feb, Essential hypertension I10 and Type 2 diabetes mellitus with hyperglycemia E11.65 [facility] [address] [place] [address] Feb, Essential (primary) hypertension I10 and Exposure to hepatitis C Z20.5 [facility] [address] [place] [address] Jan, [facility] [address] [address] Jan, [facility] [address] [place] [address] Jan, [facility] [address] [place] [address] Jan, [facility] [address] [place] [address] Jan, [facility] [address] [address] Jan, [facility] [address] [address] December, Essential (primary) hypertension I10 [facility] [address] [place] [address] December, Restless legs syndrome G25.81 [facility] [address] [place] [address] December, Restless legs syndrome G25.[address] [address] December, Restless legs syndrome G25.[address] [address] December, Restless legs syndrome G25.81 [facility] [address] [place] [address] Nov, [address] [address] Nov, Type 2 diabetes mellitus with hyperglycemia E11.65 [facility] [address] [facility] [id number] [address] Nov, Essential hypertension I10 [facility] [address] [place] [address] Oct, Restless legs syndrome G25.81 [facility] [address] [place] [address] Aug, Type 2 diabetes mellitus with hyperglycemia E11.65 ; Restless legs syndrome G25.81 ; Fibromyalgia M79.7 ; Essential hypertension I10 and Urinary urgency R39.[address] [address] 30 May, 2017 [facility] [address] [address] 16 May, 2017 Type 2 diabetes mellitus with hyperglycemia E11.[address] [address] May, [address] [address] 19 Apr, 2017 Type 2 diabetes mellitus with hyperglycemia E11.[address] [address] Apr, [address] [address] Apr, Hospital discharge follow-up Z09 ; Cardiac murmur, unspecified R01.1 ; Tobacco abuse Z72.0 and Chronic obstructive pulmonary disease, unspecified COPD type J44.[address] [address] Mar, Type 2 diabetes mellitus with hyperglycemia E11.[address] [address] Feb, Type 2 diabetes mellitus with hyperglycemia E11.65 and Essential hypertension I10 [address] [address] Feb, Restless legs syndrome G25.81 ; Type 2 diabetes mellitus with hyperglycemia E11.65 ; Essential hypertension I10 and Right upper quadrant pain R10.[address] [address] Feb, [address] [address] Feb, [address] [address] Jan, Type 2 diabetes mellitus with hyperglycemia E11.65 and Right sided abdominal pain R10.[address] [address] Jan, [facility] [place] [address] [place] [address] Jan, Nausea R11.0 ; Essential hypertension I10 and Dizziness R42 [address] [address] 07 Jan, [address] [address] Nov, [address] [address] Nov, [address] [address] Oct, [address] [address] Oct, [address] [address] Oct, [address] [address] Sep, [facility] [address] [facility] [id number], [place] [address] Sep, Ganglion of tendon M67.40 and DM neuro manif type II E11.[address] [address] Aug, Pure hyperglyceridemia E78.[address] [address] Aug, [address] [address] Aug, [address] [address] Aug, [address] [address] Aug, Fibromyalgia M79.[address] [address] Aug, [address] [address] Aug, Fibromyalgia M79.[address] [address] Aug, Fibromyalgia M79.7 ; Mass of right foot R22.41 and Type 2 diabetes mellitus with hyperglycemia E11.[address] [address] Jun, [address] [address] Jun, Furuncle L02.92 and Methicillin resistant Staph aureus culture positive Z22.[address] [address] Jun, Furuncle L02.92 ; Cellulitis of other specified site L03.818 and Methicillin resistant Staph aureus culture positive Z22.[address] [address] Jun, [address] [address] Jun, Furuncle L02.92 and Cellulitis of other specified site L03.[address] [address] May, Pure hyperglyceridemia E78.1 ; Abscess L02.91 ; Restless legs syndrome G25.81 and Type 2 diabetes mellitus with hyperglycemia E11.[address] [address] May, [address] [address] May, [address] [address] May, [address] [address] Apr, [address] [address] Mar, Well woman exam Z01.419 ; Encounter for screening mammogram for breast cancer Z12.31 and History of cervical cancer Z85.[address] [address] Mar, Insect bite, multiple W57.XXXA ; Type 2 diabetes mellitus with diabetic neuropathy, unspecified E11.40 ; Essential (primary) hypertension I10 ; DM neuro manif type II E11.40 and Restless legs syndrome G25.[address] [address] Feb, [facility] [address] [place] [address] Feb, [facility] [address] [place] [address] Feb, [facility] [address] [place] [address] Jan, [facility] [address] [address] [place] [address] Jan, [facility] [address] [place] [address] Jan, Abscess L02.91 [facility] [address] [place] [address] December, DM neuro manif type II E11.40 ; Pure hyperglyceridemia E78.1 ; Essential (primary) hypertension I10 and Type 2 diabetes mellitus without complication E11.9 [facility] [address] [place] [address] Oct, [facility] [address] [place] [address] Sep, [facility] [address] [address] Sep, [facility] [address] [address] Sep, [facility] [address] [address] Sep, Type 2 diabetes mellitus without complication E11.9 ; Pure hyperglyceridemia E78.1 ; Cardiac murmur, unspecified R01.1 and Essential (primary) hypertension I10 [facility] [address] [place] [address] Aug, [facility] [address] [address] Jul, [facility] [address] [address] Jul, [facility] [address] [address] Jun, [facility] [address] [address] Jun, [facility] [address] May, [address] [address] May, [address] [address] May, [address] [address] May, [address] [address] May, [address] [address] May, [address] [address] Apr, Onychomycosis 110.[address] [address] 15 Apr, [address] [address] 14 Apr, 2015 Nail dystrophy 703.[address] [address] 08 Apr, 2015 Ingrown nail 703.[address] [address] 04 Apr, 2015 Ingrown nail 703.[address] [address] Mar, [address] [address] Mar, Diabetic neuropathy 250.60 ; Fibromyalgia 729.1 and Lumbago 724.[address] [address] Mar, [address] [address] Jan, Diabetes mellitus without mention of complication, type II or unspecified type, uncontrolled 250.02 and Hypomagnesemia 275.[address] [address] Jan, [address] [address] Jan, Coronary atherosclerosis of unspecified type of vessel, [place] or graft 414.00 ; Essential hypertension, benign 401.1 ; Other and unspecified hyperlipidemia 272.4 ; Diabetes mellitus without mention of complication, type II or unspecified type, uncontrolled 250.02 ; Depressive disorder, not elsewhere classified 311 and Restless legs syndrome [RLS] 333.[address] [address] Jan, [address] [address] December, Sciatica 724.3 ; Muscle spasm 728.85 ; UTI (urinary tract infection) 599.0 and Dysuria 788.[address] [address] December, [address] [address] December, Scabies 133.0 and Leg pain 729.5 [place] [id number] [place] [address] Nov, [place] [id number] [place] [address] Nov, [address] [address] Aug, [address] [place] [address] Aug, [address] [address] Jul, [place] [id number] [place] [address] Jul, [address] [address] Jul, [address] [place] [address] Jul, [address] [address] Jul, [address] [place] [address] Jul, [address] [place] [address] Jun, [facility] [place] [facility] [address] [facility] [id number], [place] [address] Jun, [facility] [place] [address] [place] [address] Jun, [facility] [place] [facility] [address] [place] [id number], [place] [address] Jun, [facility] [place] [address] [place] [address] May, [facility] [place] [facility] [address] [facility] [id number], [place] [address] May, [facility] [place] [facility] [address] [id number], [place] [address] Apr, [facility] [place] [facility] [address] [place] [id number], [place] [address] Apr, [facility] [place] [address] [place] [address] Apr, [facility] [place] [facility] [address] [id number], [place] [address] Apr, [facility] [place] [address] [place] [address] Apr, [facility] [place] [facility] [address] [place] [address] [id number], [place] [address] Apr, [facility] [place] [facility] [id number], [place] [address] Apr, [facility] [place] [address] [place] [address] Apr, [facility] [place] [facility] [address] [facility] [id number], [place] [address] Apr, [facility] [place] [address] [place] [address] Apr, [facility] [place] [facility] [address] [id number], [place] [address] Apr, [facility] [place] [facility] [address] [place] [id number], [place] [address] Apr, [facility] [place] [address] [place] [address] Apr, [facility] [place] [address] [place] [address] Apr, [facility] [place] [facility] [address] [facility] [id number] [place] [address] Apr, [facility] [place] [facility] [address] [place] [id number], [place] [address] Apr, [facility] [place] [address] [place] [address] Mar, [facility] [place] [facility] [address] [id number], [place] [address] Mar, [facility] [place] [address] [place] [address] Mar, [facility] [place] [facility] [id number], [place] [address] Mar, [facility] [place] [address] [place] [address] Feb, [facility] [place] [facility] [id number], [place] [address] Feb, [facility] [place] [address] [place] [address] December, [facility] [place] [facility] [address] [id number], [place] [address] December, [facility] [place] [address] [place] [address] December, [facility] [place] [facility] [id number], [place] [address] December, [facility] [place] [address] [place] [address] Nov, [facility] [place] [facility] [address] [facility] [id number], [place] [address] Nov, [facility] [place] [address] [place] [address] Nov, [facility] [place] [facility] [address] [id number] [place] [address] Nov, [facility] [place] [address] [place] [facility] [address] Nov, [facility] [place] [facility] [address] [facility] [id number] [place] [address] Nov, [facility] [place] [facility] [address] [facility] [id number] [place] [address] Oct, [facility] [place] [facility] [address] [facility] [id number] [place] [address] Oct, [facility] [place] [facility] [address] [facility] [id number] [place] [address] Aug, [facility] [address] [place] [address] [id number] [place] [address] Aug, [facility] [place] [address] [place] [facility] [address] Aug, [facility] [address] [place] [address] [id number] [place] [address] Aug, [facility] [address] [place] [address] [id number] [place] [address] Aug, [facility] [address] [place] [id number] [place] [address] Aug, [facility] [place] [address] [place] [facility] [address] Jul, [facility] [address] [facility] [id number] [place] [address] Jul, [facility] [place] [facility] [address] [id number] [place] [address] Jul, [facility] [place] [facility] [address] [facility] [id number] [place] [address] Jul, [facility] [place] [facility] [address] [facility] [id number] [place] [address] Jun, [facility] [address] [id number] [place] [address] 12 Jun, 2012 [facility] [address] [id number] [place] [address] 12 Jun, 2013 [facility] [place] [facility] [address] [id number] [place] [address] 08 Jun, 2013 [facility] [address] [id number] [place] [address] 08 Jun, 2013 [facility] [place] [facility] [address] [id number] [place] [address] 07 Jun, 2013 [facility] [place] [facility] [address] [id number] [place] [address] 07 Jun, 2013 [facility] [place] [facility] [address] [id number] [place] [address] 06 Jun, 2013 [facility] [place] [facility] [address] [id number] [place] [address] Jun, [facility] [address] [id number] [place] [address] 18 May, 2013 [facility] [place] [facility] [address] [id number] [place] [address] 18 May, 2013 [facility] [address] [facility] [id number] [place] [address] 16 May, 2013 [facility] [place] [facility] [address] [id number] [place] [address] 16 May, 2013 [facility] [place] [facility] [address] [id number], [place] [address] 14 May, 2013 [facility] [place] [facility] [address] [id number] [place] [address] 14 May, 2013 [facility] [place] [facility] [address] [id number] [place] [address] 04 May, 2013 [facility] [place] [facility] [address] [id number] [place] [address] Apr, [facility] [address] [facility] [id number], [place] [address] Mar, [facility] [address] [facility] [id number], [place] [address] Mar, [facility] [address] [facility] [id number], [place] [address] Mar, [facility] [address] [facility] [id number], [place] [address] Mar, [facility] [address] [facility] [id number], [place] [address] Feb, [facility] [address] [facility] [id number], [place] [address] Feb, [facility] [id number], [place] [address] Feb, [facility] [address], [place] [address] Feb, [facility] [id number], [place] [address] Feb, [facility] [id number], [place] [address] Feb, [facility] [id number], [place] [address] Jan, [facility] [id number], [place] [address] Jan, [facility] [id number], [place] [address] Jan, [facility] [id number], [place] [address] Jan, IMMUNIZATIONS No Known Immunizations SOCIAL HISTORY Never Assessed REASON FOR VISIT PLAN OF CARE VITAL SIGNS MEDICATIONS Unknown [...]
--- OUTSIDE RECORDS SUMMARY | 2019-02-01 09:10 | XMS REPORT ---
Author Author SJ ALY [facility] [address] [facility] Address [address] [place] [address] Care Team Providers Care Family Services Specialist Name Role Phone ALYSJ Unavailable PROBLEMS Type Condition ICD9-CM Code AJE26-TB Code Onset Dates Condition Status SNOMED Code Problem Essential (primary) hypertension I10 Active 98242316 Problem Type 2 diabetes mellitus with hyperglycemia E11.65 Active 557859106939635 Problem Pure hyperglyceridemia E78.1 Active 859930603 Problem Chronic obstructive pulmonary disease, unspecified COPD type J44.9 Active 92322912 Problem Essential hypertension I10 Active 73303976 Problem Restless legs syndrome G25.81 Active 54138856 Problem Type 2 diabetes mellitus with diabetic neuropathy, unspecified E11.40 Active 2217500654370 Problem DM neuro manif type II E11.40 Active 280495845 Problem Fibromyalgia M79.7 Active 597597662 Problem Solitary pulmonary nodule 793.11 Active 176352279 Problem Unspecified hypertrophic and atrophic condition of skin 701.9 Active 847894907 Problem Hypomagnesemia 275.2 Active 917535066 Problem Diabetic neuropathy 250.60 Active 690774804 Problem Coronary atherosclerosis of unspecified type of vessel, 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 Active 055137030 Problem Type 2 diabetes mellitus without complication E11.9 Active 79584134 Problem Depressive disorder, not elsewhere classified 311 Active 49791199 Problem Cardiac murmur, unspecified R01.1 Active 986623490 ALLERGIES No Information ENCOUNTERS Encounter Location Date Diagnosis [facility] [address] [place] [address] Feb, Restless legs syndrome G25.81 and Fibromyalgia M79.7 [facility] [address] [place] [address] Feb, Essential hypertension I10 and Type 2 diabetes mellitus with hyperglycemia E11.65 [facility] [address] [place] [address] Feb, Essential (primary) hypertension I10 and Exposure to hepatitis C Z20.5 [facility] [address] [place] [address] Jan, [facility] [address] [address] Jan, [facility] [address] [address] Jan, [facility] [address] [address] Jan, [facility] [address] [place] [address] Jan, [facility] [address] [address] Jan, [facility] [address] [address] December, Essential (primary) hypertension I10 [facility] [address] [address] December, Restless legs syndrome G25.[address] [address] December, Restless legs syndrome G25.81 [facility] [address] [address] December, Restless legs syndrome G25.81 [facility] [address] [address] December, Restless legs syndrome G25.[address] [address] Nov, [facility] [address] [address] Nov, Type 2 diabetes mellitus with hyperglycemia E11.65 [facility] [address] [facility] [id number] [address] Nov, Essential hypertension I10 [address] [address] Oct, Restless legs syndrome G25.[address] [address] Aug, Type 2 diabetes mellitus with hyperglycemia E11.65 ; Restless legs syndrome G25.81 ; Fibromyalgia M79.7 ; Essential hypertension I10 and Urinary urgency R39.[address] [address] May, [address] [address] 16 May, 2017 Type 2 diabetes mellitus with hyperglycemia E11.[address] [address] May, [address] [address] Apr, Type 2 diabetes mellitus with hyperglycemia E11.[address] [address] Apr, [address] [address] Apr, Hospital discharge follow-up Z09 ; Cardiac murmur, unspecified R01.1 ; Tobacco abuse Z72.0 and Chronic obstructive pulmonary disease, unspecified COPD type J44.[address] [address] Mar, Type 2 diabetes mellitus with hyperglycemia E11.[address] [address] Feb, Type 2 diabetes mellitus with hyperglycemia E11.65 and Essential hypertension I10 [address] [address] Feb, Restless legs syndrome G25.81 ; Type 2 diabetes mellitus with hyperglycemia E11.65 ; Essential hypertension I10 and Right upper quadrant pain R10.[address] [address] Feb, [address] [address] Feb, [address] [address] Jan, Type 2 diabetes mellitus with hyperglycemia E11.65 and Right sided abdominal pain R10.[address] [address] Jan, [address] [address] 19 Jerry, 2017 Nausea R11.0 ; Essential hypertension I10 and Dizziness R42 [address] [address] Jan, [address] [address] Nov, [address] [address] Nov, [address] [address] Oct, [address] [address] Oct, [address] [address] Oct, [address] [address] Sep, [facility] [address] [facility] [id number] [place] [address] Sep, Ganglion of tendon M67.40 and DM neuro manif type II E11.[address] [address] Aug, Pure hyperglyceridemia E78.[address] [address] Aug, [address] [address] Aug, [address] [address] Aug, [address] [address] Aug, Fibromyalgia M79.[address] [address] Aug, [address] [address] Aug, Fibromyalgia M79.[address] [address] Aug, Fibromyalgia M79.7 ; Mass of right foot R22.41 and Type 2 diabetes mellitus with hyperglycemia E11.[address] [address] Jun, [address] [address] Jun, Furuncle L02.92 and Methicillin resistant Staph aureus culture positive Z22.[address] [address] Jun, Furuncle L02.92 ; Cellulitis of other specified site L03.818 and Methicillin resistant Staph aureus culture positive Z22.[address] [address] Jun, [address] [address] Jun, Furuncle L02.92 and Cellulitis of other specified site L03.[address] [address] May, Pure hyperglyceridemia E78.1 ; Abscess L02.91 ; Restless legs syndrome G25.81 and Type 2 diabetes mellitus with hyperglycemia E11.[address] [address] May, [address] [address] May, [address] [address] May, [address] [address] Apr, [address] [address] Mar, Well woman exam Z01.419 ; Encounter for screening mammogram for breast cancer Z12.31 and History of cervical cancer Z85.[address] [address] Mar, Insect bite, multiple W57.XXXA ; Type 2 diabetes mellitus with diabetic neuropathy, unspecified E11.40 ; Essential (primary) hypertension I10 ; DM neuro manif type II E11.40 and Restless legs syndrome G25.[address] [address] Feb, [address] [address] Feb, [facility] [address] [place] [address] Feb, [facility] [address] [place] [address] Jan, [address] [address] Jan, [address] [address] Jan, Abscess L02.[address] [address] December, DM neuro manif type II E11.40 ; Pure hyperglyceridemia E78.1 ; Essential (primary) hypertension I10 and Type 2 diabetes mellitus without complication E11.[address] [address] Oct, [facility] [address] [address] Sep, [facility] [address] [address] Sep, [address] [address] Sep, [facility] [address] [address] Sep, Type 2 diabetes mellitus without complication E11.9 ; Pure hyperglyceridemia E78.1 ; Cardiac murmur, unspecified R01.1 and Essential (primary) hypertension I10 [address] [address] Aug, [facility] [address] [address] Jul, [facility] [address] [address] Jul, [facility] [address] [address] Jun, [facility] [address] [address] Jun, [facility] [address] [address] May, [address] [address] 09 May, 2015 [facility] [address] [place] [address] 07 May, [address] [address] May, [address] [address] May, [address] [address] May, [address] [address] Apr, Onychomycosis 110.[address] [address] Apr, [address] [address] 14 Apr, 2015 Nail dystrophy 703.[address] [address] 08 Apr, 2015 Ingrown nail 703.[address] [address] 04 Apr, 2015 Ingrown nail 703.[address] [address] Mar, [address] [address] Mar, Diabetic neuropathy 250.60 ; Fibromyalgia 729.1 and Lumbago 724.[address] [address] Mar, [address] [address] Jan, Diabetes mellitus without mention of complication, type II or unspecified type, uncontrolled 250.02 and Hypomagnesemia 275.[address] [address] Jan, [address] [address] Jan, Coronary atherosclerosis of unspecified type of vessel, 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 ; Essential hypertension, benign 401.1 ; Other and unspecified hyperlipidemia 272.4 ; Diabetes mellitus without mention of complication, type II or unspecified type, uncontrolled 250.02 ; Depressive disorder, not elsewhere classified 311 and Restless legs syndrome [RLS] 333.[address] [address] Jan, [address] [address] December, Sciatica 724.3 ; Muscle spasm 728.85 ; UTI (urinary tract infection) 599.0 and Dysuria 788.[address] [address] December, [address] [address] December, Scabies 133.0 and Leg pain 729.5 [address] [address] Nov, [address] [place] [address] Nov, [address] [address] Aug, [facility] [address] [place] [id number], [place] [address] Aug, [address] [address] Jul, [address] [address] Jul, [address] [address] Jul, [facility] [address] [place] [address], [place] [address] Jul, [address] [address] Jul, [facility] [address] [place] [address] [address] Jul, [address] [address] Jun, [facility] [address] [place] [address] [address] Jun, [facility] [address] [place] [address] Jun, [facility] [place] [facility] [id number] [address] Jun, [facility] [place] [address] [place] [address] May, [facility] [place] [facility] [id number] [address] May, [facility] [place] [facility] [id number] [address] Apr, [facility] [place] [facility] [id number] [address] Apr, [facility] [place] [address] [place] [address] Apr, [facility] [place] [facility] [id number] [address] Apr, [facility] [address] [place] [address] Apr, [facility] [place] [facility] [id number] [address] Apr, [facility] [place] [facility] [id number] [address] Apr, [facility] [place] [address] [place] [address] 18 Apr, 2014 [facility] [place] [facility] [address] [id number] [address] 18 Apr, 2014 [facility] [address] [place] [address] Apr, [facility] [place] [facility] [id number] [address] Apr, [facility] [place] [facility] [id number] [address] 10 Apr, 2014 [facility] [address] [facility] [address] Apr, [facility] [address] [facility] [address] Apr, [facility] [place] [facility] [address] [facility] [id number] [place] [address] Apr, [facility] [place] [facility] [id number] [place] [address] Apr, [facility] [address] [facility] [address] Mar, [facility] [place] [facility] [id number] [place] [address] Mar, [facility] [place] [address] [place] [address] Mar, [facility] [place] [facility] [id number] [place] [address] Mar, [facility] [place] [address] [facility] [address] Feb, [facility] [place] [facility] [id number] [place] [address] Feb, [facility] [place] [address] [facility] [address] December, [facility] [place] [facility] [id number] [place] [address] December, [facility] [address] [place] [address] December, [facility] [place] [facility] [id number], [place] [address] December, [facility] [address] [facility] [address] Nov, [facility] [place] [facility] [id number] [address] Nov, [facility] [place] [address] [place] [address] Nov, [facility] [place] [facility] [id number], [place] [address] 14 Nov, 2013 [facility] [address] [facility] [address] Nov, [facility] [place] [facility] [address] [facility] [id number] [place] [address] Nov, [facility] [place] [facility] [address] [facility] [id number] [place] [address] Oct, [facility] [place] [facility] [address] [facility] [id number] [place] [address] Oct, [facility] [place] [facility] [address] [facility] [id number] [place] [address] Aug, [facility] [place] [facility] [address] [facility] [id number] [place] [address] Aug, [facility] [place] [address] [facility] [address] Aug, [facility] [place] [facility] [id number] [place] [address] Aug, [facility] [place] [facility] [id number] [place] [address] Aug, [facility] [place] [facility] [id number] [place] [address] Aug, [facility] [place] [address] [facility] [address] Jul, [facility] [place] [facility] [id number] [place] [address] Jul, [facility] [place] [facility] [address] [facility] [id number] [place] [address] Jul, [facility] [place] [facility] [address] [facility] [id number] [place] [address] Jul, [facility] [place] [facility] [address] [facility] [id number] [place] [address] Jun, [facility] [place] [facility] [address] [facility] [id number] [address] Jun, [facility] [place] [facility] [address] [id number] [place] [address] 12 Jun, 2012 [facility] [place] [facility] [address] [id number] [place] [address] 08 Jun, 2013 [facility] [place] [facility] [address] [id number] [place] [address] 08 Jun, 2012 [facility] [place] [facility] [address] [id number] [place] [address] 07 Jun, 2012 [facility] [place] [facility] [address] [id number] [place] [address] 07 Jun, 2012 [facility] [place] [facility] [address] [id number] [place] [address] 06 Jun, 2013 [facility] [place] [facility] [address] [id number] [place] [address] 06 Jun, 2013 [facility] [place] [facility] [address] [id number] [place] [address] 18 May, 2013 [facility] [place] [facility] [address] [id number] [place] [address] 18 May, 2013 [facility] [place] [facility] [address] [id number] [place] [address] 16 May, 2013 [facility] [place] [facility] [address] [id number] [place] [address] 16 May, 2013 [facility] [place] [facility] [address] [id number] [place] [address] 14 May, 2013 [facility] [place] [facility] [address] [id number] [place] [address] 14 May, 2013 [facility] [place] [facility] [address] [id number] [place] [address] 04 May, 2013 [facility] [place] [facility] [address] [id number] [place] [address] 04 Apr, 2013 [facility] [place] [facility] [address] [id number] [place] [address] Mar, [facility] [id number], [place] [address] Mar, [facility] [id number], [place] [address] Mar, [facility] [id number], [place] [address] Mar, [facility] [address], [place] [address] Feb, [facility] [id number], [place] [address] Feb, [facility] [address], [place] [address] Feb, [facility] [address], [place] [address] Feb, [facility] [address], [place] [address] Feb, [facility] [id number], [place] [address] Feb, [facility] [address], [place] [address] Jan, [facility] [id number], [place] [address] Jan, [facility] [id number], [place] [address] Jan, [facility] [id number], [place] [address] Jan, IMMUNIZATIONS No Known Immunizations SOCIAL HISTORY Never Assessed REASON FOR VISIT PLAN OF CARE VITAL SIGNS MEDICATIONS Unknown Medications RESULTS No Results PROCEDURES No Known procedures INSTRUCTIONS MEDICATIONS ADMINISTERED No Known Medications MEDICAL (GENERAL) HISTORY Type Description Date Medical History 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
--- OUTSIDE RECORDS SUMMARY | 2019-02-01 09:11 | XMS REPORT ---
Author Author SJ ALY [facility] [address] [facility] Address [address] [place] [address] Care Team Providers Care Desktop Support Associate Name Role Phone ALYSJ Unavailable PROBLEMS Type Condition ICD9-CM Code KHS69-NO Code Onset Dates Condition Status SNOMED Code Problem Essential (primary) hypertension I10 Active 98472683 Problem Type 2 diabetes mellitus with hyperglycemia E11.65 Active 958663032566724 Problem Pure hyperglyceridemia E78.1 Active 562893890 Problem Chronic obstructive pulmonary disease, unspecified COPD type J44.9 Active 21639317 Problem Essential hypertension I10 Active 77681755 Problem Restless legs syndrome G25.81 Active 09417476 Problem Type 2 diabetes mellitus with diabetic neuropathy, unspecified E11.40 Active 1325157902703 Problem DM neuro manif type II E11.40 Active 610234139 Problem Fibromyalgia M79.7 Active 112215227 Problem Solitary pulmonary nodule 793.11 Active 829531672 Problem Unspecified hypertrophic and atrophic condition of skin 701.9 Active 164795205 Problem Hypomagnesemia 275.2 Active 100368128 Problem Diabetic neuropathy 250.60 Active 518836592 Problem Coronary atherosclerosis of unspecified type of vessel, [place] or graft 414.00 Active 607696352 Problem Type 2 diabetes mellitus without complication E11.9 Active 34201085 Problem Depressive disorder, not elsewhere classified 311 Active 83527373 Problem Cardiac murmur, unspecified R01.1 Active 350096272 ALLERGIES No Information ENCOUNTERS Encounter Location Date Diagnosis [facility] [address] [place] [address] Feb, Restless legs syndrome G25.81 and Fibromyalgia M79.7 [facility] [address] [place] [address] Feb, Essential hypertension I10 and Type 2 diabetes mellitus with hyperglycemia E11.65 [facility] [address] [place] [address] Feb, Essential (primary) hypertension I10 and Exposure to hepatitis C Z20.5 [facility] [address] [place] [address] Jan, [facility] [address] [address] Jan, [facility] [address] [address] Jan, [facility] [address] [address] Jan, [facility] [address] [place] [address] Jan, [facility] [address] [address] Jan, [facility] [address] [address] December, Essential (primary) hypertension I10 [facility] [address] [address] December, Restless legs syndrome G25.[address] [address] December, Restless legs syndrome G25.81 [facility] [address] [address] December, Restless legs syndrome G25.81 [facility] [address] [address] December, Restless legs syndrome G25.[address] [address] Nov, [facility] [address] [address] Nov, Type 2 diabetes mellitus with hyperglycemia E11.65 [facility] [address] [facility] [id number] [address] Nov, Essential hypertension I10 [address] [address] Oct, Restless legs syndrome G25.[address] [address] Aug, Type 2 diabetes mellitus with hyperglycemia E11.65 ; Restless legs syndrome G25.81 ; Fibromyalgia M79.7 ; Essential hypertension I10 and Urinary urgency R39.[address] [address] May, [address] [address] 16 May, 2017 Type 2 diabetes mellitus with hyperglycemia E11.[address] [address] May, [address] [address] Apr, Type 2 diabetes mellitus with hyperglycemia E11.[address] [address] Apr, [address] [address] Apr, Hospital discharge follow-up Z09 ; Cardiac murmur, unspecified R01.1 ; Tobacco abuse Z72.0 and Chronic obstructive pulmonary disease, unspecified COPD type J44.[address] [address] Mar, Type 2 diabetes mellitus with hyperglycemia E11.[address] [address] Feb, Type 2 diabetes mellitus with hyperglycemia E11.65 and Essential hypertension I10 [address] [address] Feb, Restless legs syndrome G25.81 ; Type 2 diabetes mellitus with hyperglycemia E11.65 ; Essential hypertension I10 and Right upper quadrant pain R10.[address] [address] Feb, [address] [address] Feb, [address] [address] Jan, Type 2 diabetes mellitus with hyperglycemia E11.65 and Right sided abdominal pain R10.[address] [address] Jan, [address] [address] 19 Jerry, 2017 Nausea R11.0 ; Essential hypertension I10 and Dizziness R42 [address] [address] Jan, [address] [address] Nov, [address] [address] Nov, [address] [address] Oct, [address] [address] Oct, [address] [address] Oct, [address] [address] Sep, [facility] [address] [facility] [id number] [place] [address] Sep, Ganglion of tendon M67.40 and DM neuro manif type II E11.[address] [address] Aug, Pure hyperglyceridemia E78.[address] [address] Aug, [address] [address] Aug, [address] [address] Aug, [address] [address] Aug, Fibromyalgia M79.[address] [address] Aug, [address] [address] Aug, Fibromyalgia M79.[address] [address] Aug, Fibromyalgia M79.7 ; Mass of right foot R22.41 and Type 2 diabetes mellitus with hyperglycemia E11.[address] [address] Jun, [address] [address] Jun, Furuncle L02.92 and Methicillin resistant Staph aureus culture positive Z22.[address] [address] Jun, Furuncle L02.92 ; Cellulitis of other specified site L03.818 and Methicillin resistant Staph aureus culture positive Z22.[address] [address] Jun, [address] [address] Jun, Furuncle L02.92 and Cellulitis of other specified site L03.[address] [address] May, Pure hyperglyceridemia E78.1 ; Abscess L02.91 ; Restless legs syndrome G25.81 and Type 2 diabetes mellitus with hyperglycemia E11.[address] [address] May, [address] [address] May, [address] [address] May, [address] [address] Apr, [address] [address] Mar, Well woman exam Z01.419 ; Encounter for screening mammogram for breast cancer Z12.31 and History of cervical cancer Z85.[address] [address] Mar, Insect bite, multiple W57.XXXA ; Type 2 diabetes mellitus with diabetic neuropathy, unspecified E11.40 ; Essential (primary) hypertension I10 ; DM neuro manif type II E11.40 and Restless legs syndrome G25.[address] [address] Feb, [address] [address] Feb, [facility] [address] [place] [address] Feb, [facility] [address] [place] [address] Jan, [address] [address] Jan, [address] [address] Jan, Abscess L02.[address] [address] December, DM neuro manif type II E11.40 ; Pure hyperglyceridemia E78.1 ; Essential (primary) hypertension I10 and Type 2 diabetes mellitus without complication E11.[address] [address] Oct, [facility] [address] [address] Sep, [facility] [address] [address] Sep, [address] [address] Sep, [facility] [address] [address] Sep, Type 2 diabetes mellitus without complication E11.9 ; Pure hyperglyceridemia E78.1 ; Cardiac murmur, unspecified R01.1 and Essential (primary) hypertension I10 [address] [address] Aug, [facility] [address] [address] Jul, [facility] [address] [address] Jul, [facility] [address] [address] Jun, [facility] [address] [address] Jun, [facility] [address] [address] May, [address] [address] 09 May, 2015 [facility] [address] [place] [address] 07 May, [address] [address] May, [address] [address] May, [address] [address] May, [address] [address] Apr, Onychomycosis 110.[address] [address] Apr, [address] [address] 14 Apr, 2015 Nail dystrophy 703.[address] [address] 08 Apr, 2015 Ingrown nail 703.[address] [address] 04 Apr, 2015 Ingrown nail 703.[address] [address] Mar, [address] [address] Mar, Diabetic neuropathy 250.60 ; Fibromyalgia 729.1 and Lumbago 724.[address] [address] Mar, [address] [address] Jan, Diabetes mellitus without mention of complication, type II or unspecified type, uncontrolled 250.02 and Hypomagnesemia 275.[address] [address] Jan, [address] [address] Jan, Coronary atherosclerosis of unspecified type of vessel, [place] or graft 414.00 ; Essential hypertension, benign 401.1 ; Other and unspecified hyperlipidemia 272.4 ; Diabetes mellitus without mention of complication, type II or unspecified type, uncontrolled 250.02 ; Depressive disorder, not elsewhere classified 311 and Restless legs syndrome [RLS] 333.[address] [address] Jan, [address] [address] December, Sciatica 724.3 ; Muscle spasm 728.85 ; UTI (urinary tract infection) 599.0 and Dysuria 788.[address] [address] December, [address] [address] December, Scabies 133.0 and Leg pain 729.5 [address] [address] Nov, [address] [place] [address] Nov, [address] [address] Aug, [facility] [address] [place], [place] [address], [place] [address] Aug, [address] [address] Jul, [address], [place] [address] Jul, [address] [address] Jul, [facility] [address] [place] [address], [place] [address] Jul, [address] [address] Jul, [facility] [address] [place] [address], [place] [address] Jul, [address] [address] Jun, [facility] [address] [place] [address], [place] [address] Jun, [facility] [address] [place] [address] Jun, [facility] [place] [facility] [address] [id number], [place] [address] Jun, [facility] [address] [address] [place] [address] May, [facility] [place] [facility] [address] [id number], [place] [address] May, [facility] [place] [facility] [address] [id number], [place] [address] Apr, [facility] [place] [facility] [address] [id number], [place] [address] Apr, [facility] [place] [address] [place] [address] Apr, [facility] [place] [facility] [address] [id number], [place] [address] Apr, [facility] [address] [place] [address] Apr, [facility] [place] [facility] [address] [id number], [place] [address] Apr, [facility] [place] [facility] [address] [id number], [place] [address] Apr, [facility] [address] [address] [place] [address] 18 Apr, 2014 [facility] [place] [facility] [address] [id number], [place] [address] 18 Apr, 2014 [facility] [address] [place] [address] Apr, [facility] [place] [facility] [address] [id number], [place] [address] Apr, [facility] [place] [facility] [address] [id number], [place] [address] 10 Apr, 2014 [facility] [address] [address] [place] [facility] [place] [address] Apr, [facility] [place] [address] [place] [facility] [place] [address] Apr, [facility] [place] [facility] [address] [facility] [id number] [place] [address] Apr, [facility] [place] [facility] [id number] [place] [address] Apr, [facility] [place] [address] [facility] [place] [address] Mar, [facility] [place] [facility] [id number] [place] [address] Mar, [facility] [address] [address] [place] [address] Mar, [facility] [place] [facility] [id number] [place] [address] Mar, [facility] [place] [address] [facility] [place] [address] Feb, [facility] [place] [facility] [id number] [place] [address] Feb, [facility] [address] [facility] [place] [address] December, [facility] [place] [facility] [id number] [place] [address] December, [facility] [address] [place] [address] December, [facility] [place] [facility] [address] [id number], [place] [address] December, [facility] [place] [address] [facility] [place] [address] Nov, [facility] [place] [facility] [address] [id number], [place] [address] Nov, [facility] [address] [address] [place] [address] Nov, [facility] [place] [facility] [address] [id number], [place] [address] 14 Nov, 2013 [facility] [address] [address] [facility] [place] [address] Nov, [facility] [place] [facility] [address] [facility] [id number] [place] [address] Nov, [facility] [place] [facility] [address] [facility] [id number] [place] [address] Oct, [facility] [place] [facility] [address] [facility] [id number] [place] [address] Oct, [facility] [place] [facility] [address] [facility] [id number] [place] [address] Aug, [facility] [place] [facility] [address] [facility] [id number] [place] [address] Aug, [facility] [place] [address] [facility] [place] [address] Aug, [facility] [place] [facility] [id number] [place] [address] Aug, [facility] [place] [facility] [id number] [place] [address] Aug, [facility] [place] [facility] [id number] [place] [address] Aug, [facility] [place] [address] [facility] [place] [address] Jul, [facility] [place] [facility] [id number] [place] [address] Jul, [facility] [place] [facility] [address] [facility] [id number] [place] [address] Jul, [facility] [place] [facility] [address] [facility] [id number] [place] [address] Jul, [facility] [place] [facility] [address] [facility] [id number] [place] [address] Jun, [facility] [place] [facility] [address] [facility] [id number] [address] Jun, [facility] [place] [facility] [address] [id number] [place] [address] 12 Jun, 2012 [facility] [place] [facility] [address] [id number] [place] [address] 08 Jun, 2013 [facility] [place] [facility] [address] [id number] [place] [address] 08 Jun, 2012 [facility] [place] [facility] [address] [id number] [place] [address] 07 Jun, 2012 [facility] [place] [facility] [address] [id number] [place] [address] 07 Jun, 2012 [facility] [place] [facility] [address] [id number] [place] [address] 06 Jun, 2013 [facility] [place] [facility] [address] [id number] [place] [address] 06 Jun, 2013 [facility] [place] [facility] [address] [id number] [place] [address] 18 May, 2013 [facility] [place] [facility] [address] [id number] [place] [address] 18 May, 2013 [facility] [place] [facility] [address] [id number] [place] [address] 16 May, 2013 [facility] [place] [facility] [address] [id number] [place] [address] 16 May, 2013 [facility] [place] [facility] [address] [id number] [place] [address] 14 May, 2013 [facility] [place] [facility] [address] [id number] [place] [address] 14 May, 2013 [facility] [place] [facility] [address] [id number] [place] [address] 04 May, 2013 [facility] [place] [facility] [address] [id number] [place] [address] 04 Apr, 2013 [facility] [place] [facility] [address] [id number] [place] [address] Mar, [facility] [address] [id number], [place] [address] Mar, [facility] [address], [place] [address] Mar, [facility] [address] [id number], [place] [address] Mar, [facility] [address], [place] [address] Feb, [facility] [address] [id number], [place] [address] Feb, [facility] [address], [place] [address] Feb, [facility] [address], [place] [address] Feb, [facility] [address], [place] [address] Feb, [facility] [address], [place] [address] Feb, [facility] [address], [place] [address] Jan, [facility] [address] [id number], [place] [address] Jan, [facility] [address] [id number], [place] [address] Jan, [facility] [address] [id number], [place] [address] Jan, IMMUNIZATIONS No Known Immunizations SOCIAL HISTORY Never Assessed REASON FOR VISIT PALS MEDICATION PLAN OF CARE VITAL SIGNS MEDICATIONS Unknown Medications RESULTS No Results PROCEDURES No Known procedures INSTRUCTIONS MEDICATIONS ADMINISTERED No Known Medications MEDICAL (GENERAL) HISTORY Type Description Date Medical History Atherosclerotic heart disease of [place] coronary artery without angina pectoris Medical [...]
--- OUTSIDE RECORDS SUMMARY | 2019-02-01 09:11 | XMS REPORT ---
Author Author SJ [facility] [facility] Address [address] [place] [address] Care Team Providers Care Director Integrated Name Role Phone ALYSJ Unavailable PROBLEMS Type Condition ICD9-CM Code WIV57-MN Code Onset Dates Condition Status SNOMED Code Problem Essential (primary) hypertension I10 Active 02994100 Problem Type 2 diabetes mellitus with hyperglycemia E11.65 Active 897344191042711 Problem Pure hyperglyceridemia E78.1 Active 728354004 Problem Chronic obstructive pulmonary disease, unspecified COPD type J44.9 Active 20201775 Problem Essential hypertension I10 Active 17159474 Problem Restless legs syndrome G25.81 Active 83054765 Problem Type 2 diabetes mellitus with diabetic neuropathy, unspecified E11.40 Active 3432803985027 Problem DM neuro manif type II E11.40 Active 426715791 Problem Fibromyalgia M79.7 Active 520937387 Problem Solitary pulmonary nodule 793.11 Active 442305422 Problem Unspecified hypertrophic and atrophic condition of skin 701.9 Active 890340058 Problem Hypomagnesemia 275.2 Active 752953651 Problem Diabetic neuropathy 250.60 Active 726937156 Problem Coronary atherosclerosis of unspecified type of vessel, port [place] or graft 414.00 Active 989765898 Problem Type 2 diabetes mellitus without complication E11.9 Active 71091803 Problem Depressive disorder, not elsewhere classified 311 Active 02985661 Problem Cardiac murmur, unspecified R01.1 Active [id number] ALLERGIES No Information ENCOUNTERS Encounter Location Date Diagnosis [facility] [address] [place] [address] Feb, Restless legs syndrome G25.81 and Fibromyalgia M79.7 [facility] [address] [place] [address] Feb, Essential hypertension I10 and Type 2 diabetes mellitus with hyperglycemia E11.65 [facility] [address] [place] [address] Feb, Essential (primary) hypertension I10 and Exposure to hepatitis C Z20.5 [facility] [place] [address] [place] [address] Jan, [facility] [address] [address] Jan, [facility] [address] [address] Jan, [facility] [address] [address] Jan, [facility] [place] [address] [place] [address] Jan, [facility] [address] [address] Jan, [facility] [address] [address] December, Essential (primary) hypertension I10 [facility] [address] [address] December, Restless legs syndrome G25.[address] [address] December, Restless legs syndrome G25.81 [facility] [address] [address] December, Restless legs syndrome G25.81 [facility] [address] [address] December, Restless legs syndrome G25.[address] [address] Nov, [facility] [address] [address] Nov, Type 2 diabetes mellitus with hyperglycemia E11.65 [facility] [place] [address] [facility] [id number] [address] Nov, Essential hypertension I10 [address] [address] Oct, Restless legs syndrome G25.[address] [address] Aug, Type 2 diabetes mellitus with hyperglycemia E11.65 ; Restless legs syndrome G25.81 ; Fibromyalgia M79.7 ; Essential hypertension I10 and Urinary urgency R39.[address] [address] May, [address] [address] 16 May, 2017 Type 2 diabetes mellitus with hyperglycemia E11.[address] [address] May, [address] [address] Apr, Type 2 diabetes mellitus with hyperglycemia E11.[address] [address] Apr, [address] [address] Apr, Hospital discharge follow-up Z09 ; Cardiac murmur, unspecified R01.1 ; Tobacco abuse Z72.0 and Chronic obstructive pulmonary disease, unspecified COPD type J44.[address] [address] Mar, Type 2 diabetes mellitus with hyperglycemia E11.[address] [address] Feb, Type 2 diabetes mellitus with hyperglycemia E11.65 and Essential hypertension I10 [address] [address] Feb, Restless legs syndrome G25.81 ; Type 2 diabetes mellitus with hyperglycemia E11.65 ; Essential hypertension I10 and Right upper quadrant pain R10.[address] [address] Feb, [address] [address] Feb, [address] [address] Jan, Type 2 diabetes mellitus with hyperglycemia E11.65 and Right sided abdominal pain R10.[address] [address] Jan, [address] [address] 19 Jerry, 2017 Nausea R11.0 ; Essential hypertension I10 and Dizziness R42 [address] [address] Jan, [address] [address] Nov, [address] [address] Nov, [address] [address] Oct, [address] [address] Oct, [address] [address] Oct, [address] [address] Sep, [facility] [place] [address] [facility] [id number] [place] [address] Sep, Ganglion of tendon M67.40 and DM neuro manif type II E11.[address] [address] Aug, Pure hyperglyceridemia E78.[address] [address] Aug, [address] [address] Aug, [address] [address] Aug, [address] [address] Aug, Fibromyalgia M79.[address] [address] Aug, [address] [address] Aug, Fibromyalgia M79.[address] [address] Aug, Fibromyalgia M79.7 ; Mass of right foot R22.41 and Type 2 diabetes mellitus with hyperglycemia E11.[address] [address] Jun, [address] [address] Jun, Furuncle L02.92 and Methicillin resistant Staph aureus culture positive Z22.[address] [address] Jun, Furuncle L02.92 ; Cellulitis of other specified site L03.818 and Methicillin resistant Staph aureus culture positive Z22.[address] [address] Jun, [address] [address] Jun, Furuncle L02.92 and Cellulitis of other specified site L03.[address] [address] May, Pure hyperglyceridemia E78.1 ; Abscess L02.91 ; Restless legs syndrome G25.81 and Type 2 diabetes mellitus with hyperglycemia E11.[address] [address] May, [address] [address] May, [address] [address] May, [address] [address] Apr, [address] [address] Mar, Well woman exam Z01.419 ; Encounter for screening mammogram for breast cancer Z12.31 and History of cervical cancer Z85.[address] [address] Mar, Insect bite, multiple W57.XXXA ; Type 2 diabetes mellitus with diabetic neuropathy, unspecified E11.40 ; Essential (primary) hypertension I10 ; DM neuro manif type II E11.40 and Restless legs syndrome G25.[address] [address] Feb, [address] [address] Feb, [facility] [address] [place] [address] Feb, [facility] [address] [place] [address] Jan, [address] [address] Jan, [address] [address] Jan, Abscess L02.[address] [address] December, DM neuro manif type II E11.40 ; Pure hyperglyceridemia E78.1 ; Essential (primary) hypertension I10 and Type 2 diabetes mellitus without complication E11.[address] [address] Oct, [facility] [address] [address] Sep, [facility] [address] [address] Sep, [address] [address] Sep, [facility] [address] [address] Sep, Type 2 diabetes mellitus without complication E11.9 ; Pure hyperglyceridemia E78.1 ; Cardiac murmur, unspecified R01.1 and Essential (primary) hypertension I10 [address] [address] Aug, [facility] [address] [address] Jul, [facility] [address] [address] Jul, [facility] [address] [address] Jun, [facility] [address] [address] Jun, [facility] [address] [address] May, [address] [address] 09 May, 2015 [facility] [address] [place] [address] 07 May, [address] [address] May, [address] [address] May, [address] [address] May, [address] [address] Apr, Onychomycosis 110.[address] [address] Apr, [address] [address] 14 Apr, 2015 Nail dystrophy 703.[address] [address] 08 Apr, 2015 Ingrown nail 703.[address] [address] 04 Apr, 2015 Ingrown nail 703.[address] [address] Mar, [address] [address] Mar, Diabetic neuropathy 250.60 ; Fibromyalgia 729.1 and Lumbago 724.[address] [address] Mar, [address] [address] Jan, Diabetes mellitus without mention of complication, type II or unspecified type, uncontrolled 250.02 and Hypomagnesemia 275.[address] [address] Jan, [address] [address] Jan, Coronary atherosclerosis of unspecified type of vessel, port heiden or graft 414.00 ; Essential hypertension, benign 401.1 ; Other and unspecified hyperlipidemia 272.4 ; Diabetes mellitus without mention of complication, type II or unspecified type, uncontrolled 250.02 ; Depressive disorder, not elsewhere classified 311 and Restless legs syndrome [RLS] 333.[address] [address] Jan, [address] [address] December, Sciatica 724.3 ; Muscle spasm 728.85 ; UTI (urinary tract infection) 599.0 and Dysuria 788.[address] [address] December, [address] [address] December, Scabies 133.0 and Leg pain 729.5 [address] [address] Nov, [address] [place] [address] Nov, [address] [address] Aug, [facility] [place] [address] [place] [address] Aug, [address] [address] Jul, [address], [place] [address] Jul, [address] [address] Jul, [facility] [place] [address] [place] [address] Jul, [address] [address] Jul, [facility] [place] [address] [place] [address] Jul, [address] [address] Jun, [facility] [place] [address] [place] [address] Jun, [facility] [place] [address] [place] [address] Jun, [facility] [place] [facility] [address] [id number], [place] [address] Jun, [facility] [place] [address] [place] [address] May, [facility] [place] [facility] [address] [id number], [place] [address] May, [facility] [place] [facility] [address] [id number], [place] [address] Apr, [facility] [place] [facility] [address] [id number], [place] [address] Apr, [facility] [place] [address] [place] [address] Apr, [facility] [place] [facility] [address] [id number], [place] [address] Apr, [facility] [place] [address] [place] [address] Apr, [facility] [place] [facility] [address] [id number], [place] [address] Apr, [facility] [place] [facility] [address] [id number] [address] Apr, [facility] [place] [address] [place] [address] 18 Apr, 2014 [facility] [place] [facility] [address] [id number], [place] [address] 18 Apr, 2014 [facility] [place] [address] [place] [address] Apr, [facility] [place] [facility] [address] [id number], [place] [address] Apr, [facility] [place] [facility] [address] [id number], [place] [address] 10 Apr, 2014 [facility] [place] [address] [facility] [place] [address] Apr, [facility] [place] [address] [facility] [place] [address] Apr, [facility] [place] [facility] [address] [facility] [id number] [place] [address] Apr, [facility] [place] [facility] [id number] [place] [address] Apr, [facility] [place] [address] [facility] [place] [address] Mar, [facility] [place] [facility] [id number] [place] [address] Mar, [facility] [place] [address] [place] [address] Mar, [facility] [place] [facility] [id number] [place] [address] Mar, [facility] [place] [address] [facility] [place] [address] Feb, [facility] [place] [facility] [id number] [place] [address] Feb, [facility] [place] [address] [facility] [place] [address] December, [facility] [place] [facility] [id number] [place] [address] December, [facility] [place] [address] [place] [address] December, [facility] [place] [facility] [address] [id number], [place] [address] December, [facility] [place] [address] [facility] [place] [address] Nov, [facility] [place] [facility] [address] [id number], [place] [address] Nov, [facility] [place] [address] [place] [address] Nov, [facility] [place] [facility] [address] [id number], [place] [address] 14 Nov, 2013 [facility] [place] [address] [facility] [place] [address] Nov, [facility] [place] [facility] [address] [facility] [id number] [place] [address] Nov, [facility] [place] [facility] [address] [facility] [id number] [place] [address] Oct, [facility] [place] [facility] [address] [facility] [id number] [place] [address] Oct, [facility] [place] [facility] [address] [facility] [id number] [place] [address] Aug, [facility] [place] [facility] [address] [facility] [id number] [place] [address] Aug, [facility] [place] [address] [facility] [place] [address] Aug, [facility] [place] [facility] [id number] [place] [address] Aug, [facility] [place] [facility] [id number] [place] [address] Aug, [facility] [place] [facility] [id number] [place] [address] Aug, [facility] [place] [address] [facility] [place] [address] Jul, [facility] [place] [facility] [id number] [place] [address] Jul, [facility] [place] [facility] [address] [facility] [id number] [place] [address] Jul, [facility] [place] [facility] [address] [facility] [id number] [place] [address] Jul, [facility] [place] [facility] [address] [facility] [id number] [place] [address] Jun, [facility] [place] [facility] [address] [facility] [id number], [place] [address] Jun, [facility] [place] [facility] [address] [id number] [place] [address] 12 Jun, 2012 [facility] [place] [facility] [address] [id number] [place] [address] 08 Jun, 2013 [facility] [place] [facility] [address] [id number] [place] [address] 08 Jun, 2012 [facility] [place] [facility] [address] [id number] [place] [address] 07 Jun, 2012 [facility] [place] [facility] [address] [id number] [place] [address] 07 Jun, 2012 [facility] [place] [facility] [address] [id number] [place] [address] 06 Jun, 2013 [facility] [place] [facility] [address] [id number] [place] [address] 06 Jun, 2013 [facility] [place] [facility] [address] [id number] [place] [address] 18 May, 2013 [facility] [place] [facility] [address] [id number] [place] [address] 18 May, 2013 [facility] [place] [facility] [address] [id number] [place] [address] 16 May, 2013 [facility] [place] [facility] [address] [id number] [place] [address] 16 May, 2013 [facility] [place] [facility] [address] [id number] [place] [address] 14 May, 2013 [facility] [place] [facility] [address] [id number] [place] [address] 14 May, 2013 [facility] [place] [facility] [address] [id number] [place] [address] 04 May, 2013 [facility] [place] [facility] [address] [id number] [place] [address] 04 Apr, 2013 [facility] [place] [facility] [address] [id number] [place] [address] Mar, [facility] [place] [address] [id number], [place] [address] Mar, [facility] [place] [address], [place] [address] Mar, [facility] [place] [address] [id number], [place] [address] Mar, [facility] [place] [address], [place] [address] Feb, [facility] [place] [address] [id number], [place] [address] Feb, [facility] [place] [address], [place] [address] Feb, [facility] [place] [address], [place] [address] Feb, [facility] [place] [address], [place] [address] Feb, [facility] [place] [address], [place] [address] Feb, [facility] [place] [address], [place] [address] Jan, [facility] [place] [address] [id number], [place] [address] Jan, [facility] [place] [address] [id number], [place] [address] Jan, [facility] [place] [address] [id number], [place] [address] Jan, IMMUNIZATIONS No Known Immunizations SOCIAL HISTORY Never Assessed REASON FOR VISIT Refill request PLAN OF CARE VITAL SIGNS MEDICATIONS Unknown Medications RESULTS No Results PROCEDURES No Known procedures INSTRUCTIONS MEDICATIONS ADMINISTERED No Known Medications MEDICAL (GENERAL) HISTORY Type Description Date Medical History Atherosclerotic heart disease of [place] coronary artery without angina pectoris Medical History [...]
--- OUTSIDE RECORDS SUMMARY | 2019-02-01 09:12 | XMS REPORT ---
Author Author SJ ALY [facility] [address] [facility] Address [address] [place] [address] Care Team Providers Care Vb Developer Name Role Phone ALYSJ Unavailable PROBLEMS Type Condition ICD9-CM Code SPT78-CP Code Onset Dates Condition Status SNOMED Code Problem Essential (primary) hypertension I10 Active 59636196 Problem Type 2 diabetes mellitus with hyperglycemia E11.65 Active 345037253328463 Problem Pure hyperglyceridemia E78.1 Active 296020923 Problem Chronic obstructive pulmonary disease, unspecified COPD type J44.9 Active 26759940 Problem Essential hypertension I10 Active 31071374 Problem Restless legs syndrome G25.81 Active 23216542 Problem Type 2 diabetes mellitus with diabetic neuropathy, unspecified E11.40 Active 5624854172820 Problem DM neuro manif type II E11.40 Active 113571051 Problem Fibromyalgia M79.7 Active 966837182 Problem Solitary pulmonary nodule 793.11 Active 329716775 Problem Unspecified hypertrophic and atrophic condition of skin 701.9 Active 255395824 Problem Hypomagnesemia 275.2 Active 948758719 Problem Diabetic neuropathy 250.60 Active 671511687 Problem Coronary atherosclerosis of unspecified type of vessel, [place] or graft 414.00 Active 818067555 Problem Type 2 diabetes mellitus without complication E11.9 Active 61002053 Problem Depressive disorder, not elsewhere classified 311 Active 70946208 Problem Cardiac murmur, unspecified R01.1 Active 556119375 ALLERGIES No Information ENCOUNTERS Encounter Location Date Diagnosis [facility] [address] [place] [address] Feb, Restless legs syndrome G25.81 and Fibromyalgia M79.7 [facility] [address] [place] [address] Feb, Essential hypertension I10 and Type 2 diabetes mellitus with hyperglycemia E11.65 [facility] [address] [place] [address] Feb, Essential (primary) hypertension I10 and Exposure to hepatitis C Z20.5 [facility] [address] [place] [address] Jan, [facility] [address] [address] Jan, [facility] [address] [address] Jan, [facility] [address] [address] Jan, [facility] [address] [place] [address] Jan, [facility] [address] [address] Jan, [facility] [address] [address] December, Essential (primary) hypertension I10 [facility] [address] [address] December, Restless legs syndrome G25.[address] [address] December, Restless legs syndrome G25.81 [facility] [address] [address] December, Restless legs syndrome G25.81 [facility] [address] [address] December, Restless legs syndrome G25.[address] [address] Nov, [facility] [address] [address] Nov, Type 2 diabetes mellitus with hyperglycemia E11.65 [facility] [address] [facility] [id number] [address] Nov, Essential hypertension I10 [address] [address] Oct, Restless legs syndrome G25.[address] [address] Aug, Type 2 diabetes mellitus with hyperglycemia E11.65 ; Restless legs syndrome G25.81 ; Fibromyalgia M79.7 ; Essential hypertension I10 and Urinary urgency R39.[address] [address] May, [address] [address] 16 May, 2017 Type 2 diabetes mellitus with hyperglycemia E11.[address] [address] May, [address] [address] Apr, Type 2 diabetes mellitus with hyperglycemia E11.[address] [address] Apr, [address] [address] Apr, Hospital discharge follow-up Z09 ; Cardiac murmur, unspecified R01.1 ; Tobacco abuse Z72.0 and Chronic obstructive pulmonary disease, unspecified COPD type J44.[address] [address] Mar, Type 2 diabetes mellitus with hyperglycemia E11.[address] [address] Feb, Type 2 diabetes mellitus with hyperglycemia E11.65 and Essential hypertension I10 [address] [address] Feb, Restless legs syndrome G25.81 ; Type 2 diabetes mellitus with hyperglycemia E11.65 ; Essential hypertension I10 and Right upper quadrant pain R10.[address] [address] Feb, [address] [address] Feb, [address] [address] Jan, Type 2 diabetes mellitus with hyperglycemia E11.65 and Right sided abdominal pain R10.[address] [address] Jan, [address] [address] 19 Jerry, 2017 Nausea R11.0 ; Essential hypertension I10 and Dizziness R42 [address] [address] Jan, [address] [address] Nov, [address] [address] Nov, [address] [address] Oct, [address] [address] Oct, [address] [address] Oct, [address] [address] Sep, [facility] [address] [facility] [id number] [place] [address] Sep, Ganglion of tendon M67.40 and DM neuro manif type II E11.[address] [address] Aug, Pure hyperglyceridemia E78.[address] [address] Aug, [address] [address] Aug, [address] [address] Aug, [address] [address] Aug, Fibromyalgia M79.[address] [address] Aug, [address] [address] Aug, Fibromyalgia M79.[address] [address] Aug, Fibromyalgia M79.7 ; Mass of right foot R22.41 and Type 2 diabetes mellitus with hyperglycemia E11.[address] [address] Jun, [address] [address] Jun, Furuncle L02.92 and Methicillin resistant Staph aureus culture positive Z22.[address] [address] Jun, Furuncle L02.92 ; Cellulitis of other specified site L03.818 and Methicillin resistant Staph aureus culture positive Z22.[address] [address] Jun, [address] [address] Jun, Furuncle L02.92 and Cellulitis of other specified site L03.[address] [address] May, Pure hyperglyceridemia E78.1 ; Abscess L02.91 ; Restless legs syndrome G25.81 and Type 2 diabetes mellitus with hyperglycemia E11.[address] [address] May, [address] [address] May, [address] [address] May, [address] [address] Apr, [address] [address] Mar, Well woman exam Z01.419 ; Encounter for screening mammogram for breast cancer Z12.31 and History of cervical cancer Z85.[address] [address] Mar, Insect bite, multiple W57.XXXA ; Type 2 diabetes mellitus with diabetic neuropathy, unspecified E11.40 ; Essential (primary) hypertension I10 ; DM neuro manif type II E11.40 and Restless legs syndrome G25.[address] [address] Feb, [address] [address] Feb, [facility] [address] [place] [address] Feb, [facility] [address] [place] [address] Jan, [address] [address] Jan, [address] [address] Jan, Abscess L02.[address] [address] December, DM neuro manif type II E11.40 ; Pure hyperglyceridemia E78.1 ; Essential (primary) hypertension I10 and Type 2 diabetes mellitus without complication E11.[address] [address] Oct, [facility] [address] [address] Sep, [facility] [address] [address] Sep, [address] [address] Sep, [facility] [address] [address] Sep, Type 2 diabetes mellitus without complication E11.9 ; Pure hyperglyceridemia E78.1 ; Cardiac murmur, unspecified R01.1 and Essential (primary) hypertension I10 [address] [address] Aug, [facility] [address] [address] Jul, [facility] [address] [address] Jul, [facility] [address] [address] Jun, [facility] [address] [address] Jun, [facility] [address] [address] May, [address] [address] 09 May, 2015 [facility] [address] [place] [address] 07 May, [address] [address] May, [address] [address] May, [address] [address] May, [address] [address] Apr, Onychomycosis 110.[address] [address] Apr, [address] [address] 14 Apr, 2015 Nail dystrophy 703.[address] [address] 08 Apr, 2015 Ingrown nail 703.[address] [address] 04 Apr, 2015 Ingrown nail 703.[address] [address] Mar, [address] [address] Mar, Diabetic neuropathy 250.60 ; Fibromyalgia 729.1 and Lumbago 724.[address] [address] Mar, [address] [address] Jan, Diabetes mellitus without mention of complication, type II or unspecified type, uncontrolled 250.02 and Hypomagnesemia 275.[address] [address] Jan, [address] [address] Jan, Coronary atherosclerosis of unspecified type of vessel, [place] or graft 414.00 ; Essential hypertension, benign 401.1 ; Other and unspecified hyperlipidemia 272.4 ; Diabetes mellitus without mention of complication, type II or unspecified type, uncontrolled 250.02 ; Depressive disorder, not elsewhere classified 311 and Restless legs syndrome [RLS] 333.[address] [address] Jan, [address] [address] December, Sciatica 724.3 ; Muscle spasm 728.85 ; UTI (urinary tract infection) 599.0 and Dysuria 788.[address] [address] December, [address] [address] December, Scabies 133.0 and Leg pain 729.5 [address] [address] Nov, [address] [place] [address] Nov, [address] [address] Aug, [facility] [address] [place] [id number], [place] [address] Aug, [address] [address] Jul, [address], [place] [address] Jul, [address] [address] Jul, [facility] [address] [place] [id number], [place] [address] Jul, [address] [address] Jul, [facility] [address] [place] [id number], [place] [address] Jul, [address] [address] Jun, [facility] [address] [place] [id number], [place] [address] Jun, [facility] [address] [place] [address] Jun, [facility] [facility] [address] [id number] [address] Jun, [facility] [address] [place] [address] May, [facility] [address] [id number], [place] [address] May, [facility] [place] [facility] [address] [id number], [place] [address] Apr, [facility] [place] [facility] [address] [id number], [place] [address] Apr, [facility] [address] [place] [address] Apr, [facility] [place] [facility] [address] [id number] [address] Apr, [facility] [address] [place] [address] Apr, [facility] [id number], [place] [address] Apr, [facility] [place] [facility] [address] [id number], [place] [address] Apr, [facility] [address] [place] [address] 18 Apr, 2014 [facility] [facility] [address] [id number] [address] 18 Apr, 2014 [facility] [address] [address] [place] [address] Apr, [facility] [address] [id number], [place] [address] Apr, [facility] [facility] [address] [id number], [place] [address] 10 Apr, 2014 [facility] [address] [address] [place] [facility] [place] [address] Apr, [facility] [place] [address] [place] [facility] [place] [address] Apr, [facility] [place] [facility] [address] [facility] [id number] [place] [address] Apr, [facility] [place] [facility] [id number] [place] [address] Apr, [facility] [address] [address] [place] [address] Mar, [facility] [facility] [id number] [place] [address] Mar, [facility] [address] [address] [place] [address] Mar, [facility] [facility] [id number] [place] [address] Mar, [facility] [address] [place] [facility] [place] [address] Feb, [facility] [place] [facility] [id number] [place] [address] Feb, [facility] [address] [place] [address] December, [facility] [facility] [id number] [place] [address] December, [facility] [address] [place] [address] December, [facility] [facility] [address] [id number], [place] [address] December, [facility] [address] [address] [place] [facility] [place] [address] Nov, [facility] [facility] [id number], [place] [address] Nov, [facility] [address] [place] [address] Nov, [facility] [facility] [address] [id number], [place] [address] 14 Nov, 2013 [facility] [address] [address] [place] [address] Nov, [facility] [place] [facility] [address] [facility] [id number] [place] [address] Nov, [facility] [place] [facility] [address] [facility] [id number] [place] [address] Oct, [facility] [place] [facility] [address] [facility] [id number] [place] [address] Oct, [facility] [place] [facility] [address] [facility] [id number] [place] [address] Aug, [facility] [place] [facility] [address] [facility] [id number] [place] [address] Aug, [facility] [address] [address] [place] [address] Aug, [facility] [place] [facility] [id number] [place] [address] Aug, [facility] [place] [facility] [id number] [place] [address] Aug, [facility] [place] [facility] [id number] [place] [address] Aug, [facility] [address] [place] [address] Jul, [facility] [place] [facility] [id number] [place] [address] Jul, [facility] [place] [facility] [address] [facility] [id number] [place] [address] Jul, [facility] [place] [facility] [address] [facility] [id number] [place] [address] Jul, [facility] [place] [facility] [address] [facility] [id number] [place] [address] Jun, [facility] [place] [facility] [address] [facility] [id number], [place] [address] Jun, [facility] [place] [facility] [address] [id number] [place] [address] 12 Jun, 2012 [facility] [place] [facility] [address] [id number] [place] [address] 08 Jun, 2013 [facility] [place] [facility] [address] [id number] [place] [address] 08 Jun, 2012 [facility] [place] [facility] [address] [id number] [place] [address] 07 Jun, 2012 [facility] [place] [facility] [address] [id number] [place] [address] 07 Jun, 2012 [facility] [place] [facility] [address] [id number] [place] [address] 06 Jun, 2013 [facility] [place] [facility] [address] [id number] [place] [address] 06 Jun, 2013 [facility] [place] [facility] [address] [id number] [place] [address] 18 May, 2013 [facility] [place] [facility] [address] [id number] [place] [address] 18 May, 2013 [facility] [place] [facility] [address] [id number] [place] [address] 16 May, 2013 [facility] [place] [facility] [address] [id number] [place] [address] 16 May, 2013 [facility] [place] [facility] [address] [id number] [place] [address] 14 May, 2013 [facility] [place] [facility] [address] [id number] [place] [address] 14 May, 2013 [facility] [place] [facility] [address] [id number] [place] [address] 04 May, 2013 [facility] [place] [facility] [address] [id number] [place] [address] 04 Apr, 2013 [facility] [place] [facility] [address] [id number] [place] [address] Mar, [facility] [address] [id number], [place] [address] Mar, [facility] [id number], [place] [address] Mar, [facility] [id number] [address] Mar, [facility] [id number], [place] [address] Feb, [facility] [id number], [place] [address] Feb, [facility] [id number], [place] [address] Feb, [facility] [id number], [place] [address] Feb, [facility] [id number], [place] [address] Feb, [facility] [id number], [place] [address] Feb, [facility] [id number] [address] Jan, [facility] [id number], [place] [address] Jan, [facility] [id number] [address] Jan, [facility] [address] [id number] [address] Jan, IMMUNIZATIONS No Known Immunizations SOCIAL HISTORY Never Assessed REASON FOR VISIT referral PLAN OF CARE VITAL SIGNS MEDICATIONS Unknown Medications RESULTS No Results PROCEDURES No Known procedures INSTRUCTIONS MEDICATIONS ADMINISTERED No Known Medications MEDICAL (GENERAL) HISTORY Type Description Date Medical History Atherosclerotic heart disease of [place] coronary artery without angina pectoris Medical History [...]
--- OUTSIDE RECORDS SUMMARY | 2019-02-01 09:12 | XMS REPORT ---
Author Author SJ ALY Organization [facility] [address] [facility] Address [address] [place] [address] Care Team Providers Care Supervisor Word Processing Name Role Phone ALYSJ Unavailable PROBLEMS Type Condition ICD9-CM Code UEH46-DH Code Onset Dates Condition Status SNOMED Code Problem Essential (primary) hypertension I10 Active 07328227 Problem Type 2 diabetes mellitus with hyperglycemia E11.65 Active 854007169049216 Problem Pure hyperglyceridemia E78.1 Active 459319116 Problem Chronic obstructive pulmonary disease, unspecified COPD type J44.9 Active 92957060 Problem Essential hypertension I10 Active 46864909 Problem Restless legs syndrome G25.81 Active 42220459 Problem Type 2 diabetes mellitus with diabetic neuropathy, unspecified E11.40 Active 6424367647935 Problem DM neuro manif type II E11.40 Active 857550347 Problem Fibromyalgia M79.7 Active 985434372 Problem Solitary pulmonary nodule 793.11 Active 312910220 Problem Unspecified hypertrophic and atrophic condition of skin 701.9 Active 242276864 Problem Hypomagnesemia 275.2 Active 579148835 Problem Diabetic neuropathy 250.60 Active 958314321 Problem Coronary atherosclerosis of unspecified type of vessel, [place] or graft 414.00 Active 356108567 Problem Type 2 diabetes mellitus without complication E11.9 Active 20918553 Problem Depressive disorder, not elsewhere classified 311 Active 14788887 Problem Cardiac murmur, unspecified R01.1 Active 339926848 ALLERGIES Substance Reaction Event Type Date Status Hydrocodone-Acetaminophen itching Drug Allergy December, Active Acetaminophen-Codeine #3 itching Drug Allergy December, Active ENCOUNTERS Encounter Location Date Diagnosis [facility] [address] [place] [address] Feb, Restless legs syndrome G25.81 and Fibromyalgia M79.7 [facility] [address] [place] [address] Feb, Essential hypertension I10 and Type 2 diabetes mellitus with hyperglycemia E11.65 [facility] [address] [place] [address] Feb, Essential (primary) hypertension I10 and Exposure to hepatitis C Z20.5 [facility] [place] [address] [place] [address] Jan, [facility] [address] [place] [address] Jan, [facility] [place] [address] [place] [address] Jan, [facility] [place] [address] [place] [address] Jan, [facility] [place] [address] [place] [address] Jan, [facility] [place] [address] [place] [address] Jan, [facility] [address] [address] December, Essential (primary) hypertension I10 [facility] [place] [address] [place] [address] December, Restless legs syndrome G25.81 [facility] [place] [address] [place] [address] December, Restless legs syndrome G25.81 [facility] [place] [address] [place] [address] December, Restless legs syndrome G25.81 [facility] [place] [address] [place] [address] December, Restless legs syndrome G25.81 [facility] [place] [address] [place] [address] Nov, [facility] [place] [address] [place] [address] Nov, Type 2 diabetes mellitus with hyperglycemia E11.65 [facility] [address] [facility] [id number] [address] Nov, Essential hypertension I10 [facility] [place] [address] [place] [address] Oct, Restless legs syndrome G25.81 [facility] [place] [address] [place] [address] Aug, Type 2 diabetes mellitus with hyperglycemia E11.65 ; Restless legs syndrome G25.81 ; Fibromyalgia M79.7 ; Essential hypertension I10 and Urinary urgency R39.15 [facility] [place] [address] 30 May, [address] [address] 16 May, 2017 Type 2 diabetes mellitus with hyperglycemia E11.[address] [address] May, [facility] [address] [address] 19 Apr, 2017 Type 2 diabetes mellitus with hyperglycemia E11.[address] [address] Apr, [address] [address] 11 Apr, 2017 Hospital discharge follow-up Z09 ; Cardiac murmur, unspecified R01.1 ; Tobacco abuse Z72.0 and Chronic obstructive pulmonary disease, unspecified COPD type J44.[address] [address] Mar, Type 2 diabetes mellitus with hyperglycemia E11.[address] [address] Feb, Type 2 diabetes mellitus with hyperglycemia E11.65 and Essential hypertension I10 [address] [address] Feb, Restless legs syndrome G25.81 ; Type 2 diabetes mellitus with hyperglycemia E11.65 ; Essential hypertension I10 and Right upper quadrant pain R10.[address] [address] Feb, [facility] [address] [address] Feb, [address] [address] Jan, Type 2 diabetes mellitus with hyperglycemia E11.65 and Right sided abdominal pain R10.[address] [address] Jan, [address] [address] Jan, Nausea R11.0 ; Essential hypertension I10 and Dizziness R42 [address] [address] 07 Jan, [address] [address] Nov, [address] [address] Nov, [address] [address] Oct, [address] [address] Oct, [address] [address] Oct, [address] [address] Sep, [facility] [address] [facility] [id number], [place] [address] Sep, Ganglion of tendon M67.40 and DM neuro manif type II E11.[address] [address] Aug, Pure hyperglyceridemia E78.[address] [address] Aug, [address] [address] Aug, [address] [address] Aug, [address] [address] Aug, Fibromyalgia M79.[address] [address] Aug, [address] [address] Aug, Fibromyalgia M79.[address] [address] Aug, Fibromyalgia M79.7 ; Mass of right foot R22.41 and Type 2 diabetes mellitus with hyperglycemia E11.[address] [address] Jun, [address] [address] Jun, Furuncle L02.92 and Methicillin resistant Staph aureus culture positive Z22.[address] [address] Jun, Furuncle L02.92 ; Cellulitis of other specified site L03.818 and Methicillin resistant Staph aureus culture positive Z22.[address] [address] Jun, [address] [address] Jun, Furuncle L02.92 and Cellulitis of other specified site L03.[address] [address] May, Pure hyperglyceridemia E78.1 ; Abscess L02.91 ; Restless legs syndrome G25.81 and Type 2 diabetes mellitus with hyperglycemia E11.[address] [address] May, [address] [address] May, [address] [address] May, [address] [address] Apr, [address] [address] Mar, Well woman exam Z01.419 ; Encounter for screening mammogram for breast cancer Z12.31 and History of cervical cancer Z85.[address] [address] Mar, Insect bite, multiple W57.XXXA ; Type 2 diabetes mellitus with diabetic neuropathy, unspecified E11.40 ; Essential (primary) hypertension I10 ; DM neuro manif type II E11.40 and Restless legs syndrome G25.[address] [address] Feb, [facility] [place] [address] [place] [address] Feb, [facility] [place] [address] [place] [address] Feb, [facility] [place] [address] [place] [address] Jan, [facility] [place] [address] [place] [address] Jan, [facility] [place] [address] [place] [address] Jan, Abscess L02.91 [facility] [place] [address] [place] [address] December, DM neuro manif type II E11.40 ; Pure hyperglyceridemia E78.1 ; Essential (primary) hypertension I10 and Type 2 diabetes mellitus without complication E11.9 [facility] [place] [address] [place] [address] Oct, [facility] [place] [address] [place] [address] Sep, [facility] [place] [address] [place] [address] Sep, [facility] [place] [address] [place] [address] Sep, [facility] [place] [address] Sep, Type 2 diabetes mellitus without complication E11.9 ; Pure hyperglyceridemia E78.1 ; Cardiac murmur, unspecified R01.1 and Essential (primary) hypertension I10 [facility] [place] [address] [place] [address] Aug, [facility] [place] [address] [place] [address] Jul, [facility] [place] [address] [place] [address] Jul, [facility] [place] [address] [place] [address] Jun, [facility] [place] [address] [place] [address] Jun, [facility] [address] [place] [address] May, [address] [address] May, [address] [address] May, [address] [address] May, [address] [address] May, [address] [address] May, [address] [address] 29 Apr, 2015 Onychomycosis [address] [address] 15 Apr, [address] [address] 14 Apr, 2015 Nail dystrophy 703.[address] [address] 08 Apr, 2015 Ingrown nail 703.[address] [address] 04 Apr, 2015 Ingrown nail 703.[address] [address] Mar, [address] [address] Mar, Diabetic neuropathy 250.60 ; Fibromyalgia 729.1 and Lumbago 724.[address] [address] Mar, [address] [address] Jan, Diabetes mellitus without mention of complication, type II or unspecified type, uncontrolled 250.02 and Hypomagnesemia 275.[address] [address] Jan, [address] [address] Jan, Coronary atherosclerosis of unspecified type of vessel, [place] or graft 414.00 ; Essential hypertension, benign 401.1 ; Other and unspecified hyperlipidemia 272.4 ; Diabetes mellitus without mention of complication, type II or unspecified type, uncontrolled 250.02 ; Depressive disorder, not elsewhere classified 311 and Restless legs syndrome [RLS] 333.94 [facility] [address] [place] [address] Jan, [address] [address] December, Sciatica 724.3 ; Muscle spasm 728.85 ; UTI (urinary tract infection) 599.0 and Dysuria 788.[address] [address] December, [address] [address] December, Scabies 133.0 and Leg pain 729.5 [place] [id number] [place] [address] Nov, [place] [id number] [place] [address] Nov, [address] [address] Aug, [place] [id number] [place] [address] Aug, [address] [address] Jul, [place] [id number] [place] [address] Jul, [address] [address] Jul, [place] [id number] [place] [address] Jul, [address] [address] Jul, [id number] [place] [address] Jul, [facility] [place] [address] [place] [address] Jun, [facility] [place] [facility] [address] [facility] [id number], [place] [address] Jun, [facility] [place] [address] [place] [address] Jun, [facility] [place] [facility] [address] [id number], [place] [address] Jun, [facility] [place] [address] [place] [address] May, [facility] [place] [facility] [address] [facility] [id number], [place] [address] May, [facility] [place] [facility] [address] [id number], [place] [address] Apr, [facility] [place] [facility] [address] [id number], [place] [address] Apr, [facility] [place] [address] [place] [address] Apr, [facility] [place] [facility] [address] [id number], [place] [address] Apr, [facility] [place] [address] [place] [address] Apr, [facility] [place] [facility] [address] [id number], [place] [address] Apr, [facility] [place] [facility] [address] [id number], [place] [address] 19 Apr, 2014 [facility] [place] [address] [place] [address] 18 Apr, 2014 [facility] [place] [facility] [address] [facility] [id number], [place] [address] Apr, [facility] [place] [address] [place] [address] Apr, [facility] [place] [facility] [address] [id number], [place] [address] Apr, [facility] [place] [facility] [address] [facility] [id number] [place] [address] Apr, [facility] [place] [address] [place] [facility] [place] [address] Apr, [facility] [place] [address] [facility] [place] [address] Apr, [facility] [place] [facility] [address] [facility] [id number] [place] [address] Apr, [facility] [place] [facility] [address] [facility] [id number], [place] [address] Apr, [facility] [place] [address] [place] [facility] [place] [address] Mar, [facility] [place] [facility] [address] [id number], [place] [address] Mar, [facility] [place] [address] [place] [address] Mar, [facility] [place] [facility] [address] [id number], [place] [address] Mar, [facility] [place] [address] [facility] [place] [address] Feb, [facility] [place] [facility] [address] [id number], [place] [address] Feb, [facility] [place] [address] [place] [address] December, [facility] [place] [facility] [address] [id number], [place] [address] December, [facility] [place] [address] [place] [address] December, [facility] [place] [facility] [address] [facility] [id number] [place] [address] December, [facility] [place] [address] [facility] [place] [address] Nov, [facility] [place] [facility] [address] [facility] [id number], [place] [address] Nov, [facility] [place] [address] [place] [address] 14 Nov, 2013 [facility] [address] [facility] [id number] [place] [address] 14 Nov, 2013 [facility] [place] [address] [place] [address] Nov, [facility] [place] [facility] [address] [facility] [id number] [place] [address] Nov, [facility] [place] [facility] [address] [place] [id number] [place] [address] Oct, [facility] [place] [facility] [address] [facility] [id number] [place] [address] Oct, [facility] [place] [facility] [address] [facility] [id number] [place] [address] Aug, [facility] [address] [place] [id number] [place] [address] Aug, [facility] [place] [address] [facility] [place] [address] Aug, [facility] [address] [place] [id number] [place] [address] Aug, [facility] [place] [facility] [address] [place] [id number] [place] [address] Aug, [facility] [address] [place] [id number] [place] [address] Aug, [facility] [place] [address] [place] [facility] [place] [address] Jul, [facility] [place] [facility] [address] [facility] [id number] [place] [address] Jul, [facility] [place] [facility] [address] [facility] [id number] [place] [address] Jul, [facility] [place] [facility] [address] [facility] [id number] [place] [address] Jul, [facility] [place] [facility] [address] [place] [id number] [place] [address] Jun, [facility] [place] [facility] [address] [id number] [place] [address] 12 Jun, 2013 [facility] [place] [facility] [address] [id number] [place] [address] 12 Jun, 2013 [facility] [place] [facility] [address] [id number] [place] [address] 08 Jun, 2013 [facility] [place] [facility] [address] [id number] [place] [address] 08 Jun, 2013 [facility] [place] [facility] [address] [id number] [place] [address] 07 Jun, 2013 [facility] [place] [facility] [address] [id number] [place] [address] 07 Jun, 2013 [facility] [place] [facility] [address] [id number] [place] [address] 06 Jun, 2013 [facility] [place] [facility] [address] [id number] [place] [address] 06 Jun, 2013 [facility] [place] [facility] [address] [id number] [place] [address] 18 May, 2013 [facility] [place] [facility] [address] [id number] [place] [address] 18 May, 2013 [facility] [place] [facility] [address] [id number] [place] [address] 16 May, 2013 [facility] [place] [facility] [address] [id number] [place] [address] 16 May, 2013 [facility] [place] [facility] [address] [id number] [place] [address] 14 May, 2013 [facility] [place] [facility] [address] [id number] [place] [address] 14 May, 2013 [facility] [place] [facility] [address] [id number] [place] [address] 04 May, 2013 [facility] [place] [facility] [address] [id number] [place] [address] Apr, [facility] [address] [facility] [id number], [place] [address] Mar, [facility] [address] [facility] [id number], [place] [address] Mar, [facility] [address] [id number], [place] [address] Mar, [facility] [address] [facility] [id number], [place] [address] Mar, [facility] [address] [facility] [id number], [place] [address] Feb, [facility] [address] [id number], [place] [address] Feb, [facility] [address], [place] [address] Feb, [facility] [address], [place] [address] Feb, [facility] [id number], [place] [address] Feb, [facility] [address], [place] [address] Feb, [facility] [address] [id number], [place] [address] Jan, [facility] [address] [place] [id number], [place] [address] Jan, [facility] [address] [place] [id number], [place] [address] Jan, [facility] [address], [place] [address] Jan, IMMUNIZATIONS No Known Immunizations SOCIAL HISTORY Never Assessed REASON FOR VISIT Neuropathy, med refill JBishop, ran out of BP med yesterday PLAN OF CARE Activity Details Follow Up prn, 2 Months Reason:fasting labs VITAL SIGNS Height 63 in 2018-01-04 Weight 148.3 lbs 2018-01-04 Temperature 97.8 degrees Fahrenheit 2018-01-04 Heart Rate 76 bpm 2018-01-04 Respiratory Rate 16 2018-01-04 BMI 26.27 kg/m2 2018-01-04 Blood pressure systolic 164 mmHg 2018-01-04 Blood pressure diastolic 82 mmHg 2018-01-04 MEDICATIONS Medication Instructions Dosage Frequency Start Date End Date Duration Status Duloxetine HCl 60 mg Orally Once a day 2 capsule 24h Active Magnesium 250 MG Orally Once a day 1 tablet with a meal 24h Active Protonix 40 MG Orally Once a day 1 packet 24h 20 Apr, 2017 30 day(s) Active Ropinirole HCl 1 MG Orally at noon 1 tablet at noon and 2 at hs Jun, 30 days Active Advair Diskus 250-50 MCG/DOSE by inhalation route Twice a day 1 puff 12h Active MetFORMIN HCl ER 500 mg Orally 2 times a day 1 tablet with evening meal 12h Jan, 30 day(s) Active Metoprolol Tartrate 100 mg Orally Twice a day 1/2 tablet 12h 12 Aug, 2016 Active Cymbalta 60 mg Orally Once a day 2 tablets 24h Active Aspirin 81 MG Orally Once a day 1 tablet 24h Active Atorvastatin Calcium 40 mg Orally Once a day 1 tablet 24h May, 30 days Active Lisinopril 2.5 MG Orally Once a day 1 tablet 24h 30 days Active RESULTS No Results PROCEDURES No Known procedures INSTRUCTIONS MEDICATIONS ADMINISTERED No Known Medications MEDICAL (GENERAL) HISTORY Type Description Date Medical History Atherosclerotic heart disease of [place] coronary artery without angina pectoris Medical History [...]
--- OUTSIDE RECORDS SUMMARY | 2019-02-01 09:13 | XMS REPORT ---
Author Author ANGELIQUE PHILLIPS Organization [facility] [address] [facility] Address [address] [place] [address] Care Team Providers Care Registered Dietetic Technician Name Role Phone ANGELIQUE PHILLIPS Unavailable PROBLEMS Type Condition ICD9-CM Code BVH79-QN Code Onset Dates Condition Status SNOMED Code Problem Essential (primary) hypertension I10 Active 52318480 Problem Type 2 diabetes mellitus with hyperglycemia E11.65 Active 415828680033959 Problem Pure hyperglyceridemia E78.1 Active 846147031 Problem Chronic obstructive pulmonary disease, unspecified COPD type J44.9 Active 51462242 Problem Essential hypertension I10 Active 10939150 Problem Restless legs syndrome G25.81 Active 16729466 Problem Type 2 diabetes mellitus with diabetic neuropathy, unspecified E11.40 Active 7325228665895 Problem DM neuro manif type II E11.40 Active 756484195 Problem Fibromyalgia M79.7 Active 767817268 Problem Solitary pulmonary nodule 793.11 Active 709147623 Problem Unspecified hypertrophic and atrophic condition of skin 701.9 Active 693768719 Problem Hypomagnesemia 275.2 Active 362168045 Problem Diabetic neuropathy 250.60 Active 136133168 Problem Coronary atherosclerosis of unspecified type of vessel, [place] or graft 414.00 Active 326164252 Problem Type 2 diabetes mellitus without complication E11.9 Active 41138668 Problem Depressive disorder, not elsewhere classified 311 Active 95465925 Problem Cardiac murmur, unspecified R01.1 Active 089580953 ALLERGIES No Information ENCOUNTERS Encounter Location Date Diagnosis [facility] [address] [place] [address] Feb, Restless legs syndrome G25.81 and Fibromyalgia M79.7 [facility] [address] [place] [address] Feb, Essential hypertension I10 and Type 2 diabetes mellitus with hyperglycemia E11.65 [facility] [address] [place] [address] Feb, Essential (primary) hypertension I10 and Exposure to hepatitis C Z20.5 [facility] [place] [address] [place] [address] Jan, [facility] [address] [address] Jan, [facility] [address] [address] Jan, [facility] [address] [address] Jan, [facility] [place] [address] [place] [address] Jan, [facility] [address] [address] Jan, [facility] [address] [address] December, Essential (primary) hypertension I10 [facility] [address] [address] December, Restless legs syndrome G25.[address] [address] December, Restless legs syndrome G25.81 [facility] [address] [address] December, Restless legs syndrome G25.81 [facility] [address] [address] December, Restless legs syndrome G25.[address] [address] Nov, [facility] [address] [address] Nov, Type 2 diabetes mellitus with hyperglycemia E11.65 [facility] [address] [facility] [id number] [address] Nov, Essential hypertension I10 [address] [address] Oct, Restless legs syndrome G25.[address] [address] Aug, Type 2 diabetes mellitus with hyperglycemia E11.65 ; Restless legs syndrome G25.81 ; Fibromyalgia M79.7 ; Essential hypertension I10 and Urinary urgency R39.[address] [address] May, [address] [address] 16 May, 2017 Type 2 diabetes mellitus with hyperglycemia E11.[address] [address] May, [address] [address] Apr, Type 2 diabetes mellitus with hyperglycemia E11.[address] [address] Apr, [address] [address] Apr, Hospital discharge follow-up Z09 ; Cardiac murmur, unspecified R01.1 ; Tobacco abuse Z72.0 and Chronic obstructive pulmonary disease, unspecified COPD type J44.[address] [address] Mar, Type 2 diabetes mellitus with hyperglycemia E11.[address] [address] Feb, Type 2 diabetes mellitus with hyperglycemia E11.65 and Essential hypertension I10 [address] [address] Feb, Restless legs syndrome G25.81 ; Type 2 diabetes mellitus with hyperglycemia E11.65 ; Essential hypertension I10 and Right upper quadrant pain R10.[address] [address] Feb, [address] [address] Feb, [address] [address] Jan, Type 2 diabetes mellitus with hyperglycemia E11.65 and Right sided abdominal pain R10.[address] [address] Jan, [address] [address] 19 Jerry, 2017 Nausea R11.0 ; Essential hypertension I10 and Dizziness R42 [address] [address] Jan, [address] [address] Nov, [address] [address] Nov, [address] [address] Oct, [address] [address] Oct, [address] [address] Oct, [address] [address] Sep, [facility] [address] [facility] [id number] [place] [address] Sep, Ganglion of tendon M67.40 and DM neuro manif type II E11.[address] [address] Aug, Pure hyperglyceridemia E78.[address] [address] Aug, [address] [address] Aug, [address] [address] Aug, [address] [address] Aug, Fibromyalgia M79.[address] [address] Aug, [address] [address] Aug, Fibromyalgia M79.[address] [address] Aug, Fibromyalgia M79.7 ; Mass of right foot R22.41 and Type 2 diabetes mellitus with hyperglycemia E11.[address] [address] Jun, [address] [address] Jun, Furuncle L02.92 and Methicillin resistant Staph aureus culture positive Z22.[address] [address] Jun, Furuncle L02.92 ; Cellulitis of other specified site L03.818 and Methicillin resistant Staph aureus culture positive Z22.[address] [address] Jun, [address] [address] Jun, Furuncle L02.92 and Cellulitis of other specified site L03.[address] [address] May, Pure hyperglyceridemia E78.1 ; Abscess L02.91 ; Restless legs syndrome G25.81 and Type 2 diabetes mellitus with hyperglycemia E11.[address] [address] May, [address] [address] May, [address] [address] May, [address] [address] Apr, [address] [address] Mar, Well woman exam Z01.419 ; Encounter for screening mammogram for breast cancer Z12.31 and History of cervical cancer Z85.[address] [address] Mar, Insect bite, multiple W57.XXXA ; Type 2 diabetes mellitus with diabetic neuropathy, unspecified E11.40 ; Essential (primary) hypertension I10 ; DM neuro manif type II E11.40 and Restless legs syndrome G25.[address] [address] Feb, [address] [address] Feb, [facility] [address] [place] [address] Feb, [facility] [address] [place] [address] Jan, [address] [address] Jan, [address] [address] Jan, Abscess L02.[address] [address] December, DM neuro manif type II E11.40 ; Pure hyperglyceridemia E78.1 ; Essential (primary) hypertension I10 and Type 2 diabetes mellitus without complication E11.[address] [address] Oct, [facility] [address] [address] Sep, [facility] [address] [address] Sep, [address] [address] Sep, [facility] [address] [address] Sep, Type 2 diabetes mellitus without complication E11.9 ; Pure hyperglyceridemia E78.1 ; Cardiac murmur, unspecified R01.1 and Essential (primary) hypertension I10 [address] [address] Aug, [facility] [address] [address] Jul, [facility] [address] [address] Jul, [facility] [address] [address] Jun, [facility] [address] [address] Jun, [facility] [address] [address] May, [address] [address] 09 May, 2015 [facility] [address] [place] [address] 07 May, [address] [address] May, [address] [address] May, [address] [address] May, [address] [address] Apr, Onychomycosis 110.[address] [address] Apr, [address] [address] 14 Apr, 2015 Nail dystrophy 703.[address] [address] 08 Apr, 2015 Ingrown nail 703.[address] [address] 04 Apr, 2015 Ingrown nail 703.[address] [address] Mar, [address] [address] Mar, Diabetic neuropathy 250.60 ; Fibromyalgia 729.1 and Lumbago 724.[address] [address] Mar, [address] [address] Jan, Diabetes mellitus without mention of complication, type II or unspecified type, uncontrolled 250.02 and Hypomagnesemia 275.[address] [address] Jan, [address] [address] Jan, Coronary atherosclerosis of unspecified type of vessel, [place] or graft 414.00 ; Essential hypertension, benign 401.1 ; Other and unspecified hyperlipidemia 272.4 ; Diabetes mellitus without mention of complication, type II or unspecified type, uncontrolled 250.02 ; Depressive disorder, not elsewhere classified 311 and Restless legs syndrome [RLS] 333.[address] [address] Jan, [address] [address] December, Sciatica 724.3 ; Muscle spasm 728.85 ; UTI (urinary tract infection) 599.0 and Dysuria 788.[address] [address] December, [address] [address] December, Scabies 133.0 and Leg pain 729.5 [address] [address] Nov, [address] [place] [address] Nov, [address] [address] Aug, [facility] [address] [place] [id number] [address] Aug, [address] [address] Jul, [address] [address] Jul, [address] [address] Jul, [facility] [address] [place] [id number] [address] Jul, [address] [address] Jul, [facility] [address] [place] [id number] [address] Jul, [address] [address] Jun, [facility] [address] [place] [id number] [address] Jun, [facility] [address] [place] [address] Jun, [facility] [place] [facility] [address] [id number] [address] Jun, [facility] [address] [place] [address] May, [facility] [place] [facility] [address] [id number] [address] May, [facility] [place] [facility] [address] [id number] [address] Apr, [facility] [place] [facility] [address] [id number] [address] Apr, [facility] [address] [place] [address] Apr, [facility] [place] [facility] [address] [id number] [address] Apr, [facility] [address] [place] [address] Apr, [facility] [place] [facility] [address] [id number] [address] Apr, [facility] [place] [facility] [address] [id number] [address] Apr, [facility] [address] [place] [address] 18 Apr, 2014 [facility] [place] [facility] [address] [id number] [address] 18 Apr, 2014 [facility] [address] [place] [address] Apr, [facility] [place] [facility] [address] [id number] [address] Apr, [facility] [place] [facility] [address] [id number] [address] 10 Apr, 2014 [facility] [address] [facility] [place] [address] Apr, [facility] [address] [facility] [place] [address] Apr, [facility] [place] [facility] [address] [facility] [id number] [place] [address] Apr, [facility] [place] [facility] [address] [id number] [place] [address] Apr, [facility] [address] [facility] [place] [address] Mar, [facility] [place] [facility] [address] [id number] [place] [address] Mar, [facility] [address] [place] [address] Mar, [facility] [place] [facility] [address] [id number] [place] [address] Mar, [facility] [address] [facility] [place] [address] Feb, [facility] [place] [facility] [address] [id number] [place] [address] Feb, [facility] [address] [facility] [place] [address] December, [facility] [place] [facility] [address] [id number] [place] [address] December, [facility] [address] [place] [address] December, [facility] [place] [facility] [address] [id number] [address] December, [facility] [address] [facility] [place] [address] Nov, [facility] [place] [facility] [address] [id number] [address] Nov, [facility] [address] [place] [address] Nov, [facility] [place] [facility] [address] [id number] [address] 14 Nov, 2013 [facility] [address] [facility] [place] [address] Nov, [facility] [place] [facility] [address] [facility] [id number] [place] [address] Nov, [facility] [place] [facility] [address] [facility] [id number] [place] [address] Oct, [facility] [place] [facility] [address] [facility] [id number] [place] [address] Oct, [facility] [place] [facility] [address] [facility] [id number] [place] [address] Aug, [facility] [place] [facility] [address] [facility] [id number] [place] [address] Aug, [facility] [address] [facility] [place] [address] Aug, [facility] [place] [facility] [address] [id number] [place] [address] Aug, [facility] [place] [facility] [address] [id number] [place] [address] Aug, [facility] [place] [facility] [address] [id number] [place] [address] Aug, [facility] [address] [facility] [place] [address] Jul, [facility] [place] [facility] [address] [id number] [place] [address] Jul, [facility] [place] [facility] [address] [facility] [id number] [place] [address] Jul, [facility] [place] [facility] [address] [facility] [id number] [place] [address] Jul, [facility] [place] [facility] [address] [facility] [id number] [place] [address] Jun, [facility] [place] [facility] [address] [facility] [id number], [place] [address] Jun, [facility] [place] [facility] [address] [id number] [place] [address] 12 Jun, 2012 [facility] [place] [facility] [address] [id number] [place] [address] 08 Jun, 2013 [facility] [place] [facility] [address] [id number] [place] [address] 08 Jun, 2012 [facility] [place] [facility] [address] [id number] [place] [address] 07 Jun, 2012 [facility] [place] [facility] [address] [id number] [place] [address] 07 Jun, 2012 [facility] [place] [facility] [address] [id number] [place] [address] 06 Jun, 2013 [facility] [place] [facility] [address] [id number] [place] [address] 06 Jun, 2013 [facility] [place] [facility] [address] [id number] [place] [address] 18 May, 2013 [facility] [place] [facility] [address] [id number] [place] [address] 18 May, 2013 [facility] [place] [facility] [address] [id number] [place] [address] 16 May, 2013 [facility] [place] [facility] [address] [id number] [place] [address] 16 May, 2013 [facility] [place] [facility] [address] [id number] [place] [address] 14 May, 2013 [facility] [place] [facility] [address] [id number] [place] [address] 14 May, 2013 [facility] [place] [facility] [address] [id number] [place] [address] 04 May, 2013 [facility] [place] [facility] [address] [id number] [place] [address] 04 Apr, 2013 [facility] [place] [facility] [address] [id number] [place] [address] Mar, [facility] [address] [id number] [address] Mar, [facility] [address] [address] Mar, [facility] [address] [address] Mar, [facility] [address] [address] Feb, [facility] [address] [address] Feb, [facility] [address] [address] Feb, [facility] [address] [address] Feb, [facility] [address] [address] Feb, [facility] [address] [address] Feb, [facility] [address] [address] Jan, [facility] [address] [address] Jan, [facility] [address] [address] Jan, [facility] [address] [id number] [address] Jan, IMMUNIZATIONS No Known Immunizations SOCIAL HISTORY Never Assessed REASON FOR VISIT med clarification. PLAN OF CARE VITAL SIGNS MEDICATIONS Medication Instructions Dosage Frequency Start Date End Date Duration Status Ropinirole HCl 1 MG Orally at noon 1 tablet at noon and 2 at hs Jun, 30 days Active RESULTS No Results PROCEDURES No Known procedures INSTRUCTIONS MEDICATIONS ADMINISTERED No Known Medications MEDICAL (GENERAL) HISTORY Type Description Date Medical History Atherosclerotic heart disease of [place] coronary artery without angina pectoris Medical History [...]
--- OUTSIDE RECORDS SUMMARY | 2019-02-01 09:13 | XMS REPORT ---
Author Author SJ ALY [facility] [address] [facility] Address [address] [place] [address] Care Team Providers Care Cabin Equipment Supervisor Name Role Phone ALYSJ Unavailable PROBLEMS Type Condition ICD9-CM Code [id number] Code Onset Dates Condition Status SNOMED Code Problem Essential (primary) hypertension I10 Active 57319654 Problem Type 2 diabetes mellitus with hyperglycemia E11.65 Active 223998641580660 Problem Pure hyperglyceridemia E78.1 Active 168087687 Problem Chronic obstructive pulmonary disease, unspecified COPD type J44.9 Active 61540537 Problem Essential hypertension I10 Active 76798552 Problem Restless legs syndrome G25.81 Active 25066090 Problem Type 2 diabetes mellitus with diabetic neuropathy, unspecified E11.40 Active 2032572744516 Problem DM neuro manif type II E11.40 Active 474332835 Problem Fibromyalgia M79.7 Active 008409154 Problem Solitary pulmonary nodule 793.11 Active 663427740 Problem Unspecified hypertrophic and atrophic condition of skin 701.9 Active 150822065 Problem Hypomagnesemia 275.2 Active 943268754 Problem Diabetic neuropathy 250.60 Active 141558361 Problem Coronary atherosclerosis of unspecified type of vessel, [place] or graft 414.00 Active 458847973 Problem Type 2 diabetes mellitus without complication E11.9 Active 02817260 Problem Depressive disorder, not elsewhere classified 311 Active 46734395 Problem Cardiac murmur, unspecified R01.1 Active 281527960 ALLERGIES No Information ENCOUNTERS Encounter Location Date Diagnosis [facility] [address] [place] [address] Feb, Restless legs syndrome G25.81 and Fibromyalgia M79.7 [facility] [address] [place] [address] Feb, Essential hypertension I10 and Type 2 diabetes mellitus with hyperglycemia E11.65 [facility] [address] [place] [address] Feb, Essential (primary) hypertension I10 and Exposure to hepatitis C Z20.5 [facility] [address] [place] [address] Jan, [facility] [address] [address] Jan, [facility] [address] [address] Jan, [facility] [address] [address] Jan, [facility] [address] [place] [address] Jan, [facility] [address] [address] Jan, [facility] [address] [address] December, Essential (primary) hypertension I10 [facility] [address] [address] December, Restless legs syndrome G25.[address] [address] December, Restless legs syndrome G25.81 [facility] [address] [address] December, Restless legs syndrome G25.81 [facility] [address] [address] December, Restless legs syndrome G25.[address] [address] Nov, [facility] [address] [address] Nov, Type 2 diabetes mellitus with hyperglycemia E11.[address] [facility] [address] [facility] [id number] [address] Nov, Essential hypertension I10 [address] [address] Oct, Restless legs syndrome G25.[address] [address] Aug, Type 2 diabetes mellitus with hyperglycemia E11.65 ; Restless legs syndrome G25.81 ; Fibromyalgia M79.7 ; Essential hypertension I10 and Urinary urgency R39.[address] [address] May, [address] [address] 16 May, 2017 Type 2 diabetes mellitus with hyperglycemia E11.[address] [address] May, [address] [address] Apr, Type 2 diabetes mellitus with hyperglycemia E11.[address] [address] Apr, [address] [address] Apr, Hospital discharge follow-up Z09 ; Cardiac murmur, unspecified R01.1 ; Tobacco abuse Z72.0 and Chronic obstructive pulmonary disease, unspecified COPD type J44.[address] [address] Mar, Type 2 diabetes mellitus with hyperglycemia E11.[address] [address] Feb, Type 2 diabetes mellitus with hyperglycemia E11.65 and Essential hypertension I10 [address] [address] Feb, Restless legs syndrome G25.81 ; Type 2 diabetes mellitus with hyperglycemia E11.65 ; Essential hypertension I10 and Right upper quadrant pain R10.[address] [address] Feb, [address] [address] Feb, [address] [address] Jan, Type 2 diabetes mellitus with hyperglycemia E11.65 and Right sided abdominal pain R10.[address] [address] Jan, [address] [address] 19 Jerry, 2017 Nausea R11.0 ; Essential hypertension I10 and Dizziness R42 [address] [address] Jan, [address] [address] Nov, [address] [address] Nov, [address] [address] Oct, [address] [address] Oct, [address] [address] Oct, [address] [address] Sep, [facility] [address] [facility] [id number] [place] [address] Sep, Ganglion of tendon M67.40 and DM neuro manif type II E11.[address] [address] Aug, Pure hyperglyceridemia E78.[address] [address] Aug, [address] [address] Aug, [address] [address] Aug, [address] [address] Aug, Fibromyalgia M79.[address] [address] Aug, [address] [address] Aug, Fibromyalgia M79.[address] [address] Aug, Fibromyalgia M79.7 ; Mass of right foot R22.41 and Type 2 diabetes mellitus with hyperglycemia E11.[address] [address] Jun, [address] [address] Jun, Furuncle L02.92 and Methicillin resistant Staph aureus culture positive Z22.[address] [address] Jun, Furuncle L02.92 ; Cellulitis of other specified site L03.818 and Methicillin resistant Staph aureus culture positive Z22.[address] [address] Jun, [address] [address] Jun, Furuncle L02.92 and Cellulitis of other specified site L03.[address] [address] May, Pure hyperglyceridemia E78.1 ; Abscess L02.91 ; Restless legs syndrome G25.81 and Type 2 diabetes mellitus with hyperglycemia E11.[address] [address] May, [address] [address] May, [address] [address] May, [address] [address] Apr, [address] [address] Mar, Well woman exam Z01.419 ; Encounter for screening mammogram for breast cancer Z12.31 and History of cervical cancer Z85.[address] [address] Mar, Insect bite, multiple W57.XXXA ; Type 2 diabetes mellitus with diabetic neuropathy, unspecified E11.40 ; Essential (primary) hypertension I10 ; DM neuro manif type II E11.40 and Restless legs syndrome G25.[address] [address] Feb, [address] [address] Feb, [facility] [address] [place] [address] Feb, [facility] [address] [place] [address] Jan, [address] [address] Jan, [address] [address] Jan, Abscess L02.[address] [address] December, DM neuro manif type II E11.40 ; Pure hyperglyceridemia E78.1 ; Essential (primary) hypertension I10 and Type 2 diabetes mellitus without complication E11.[address] [address] Oct, [facility] [address] [address] Sep, [facility] [address] [address] Sep, [address] [address] Sep, [facility] [address] [address] Sep, Type 2 diabetes mellitus without complication E11.9 ; Pure hyperglyceridemia E78.1 ; Cardiac murmur, unspecified R01.1 and Essential (primary) hypertension I10 [address] [address] Aug, [facility] [address] [address] Jul, [facility] [address] [address] Jul, [facility] [address] [address] Jun, [facility] [address] [address] Jun, [facility] [address] [address] May, [address] [address] 09 May, 2015 [facility] [address] [place] [address] 07 May, [address] [address] May, [address] [address] May, [address] [address] May, [address] [address] Apr, Onychomycosis 110.[address] [address] Apr, [address] [address] 14 Apr, 2015 Nail dystrophy 703.[address] [address] 08 Apr, 2015 Ingrown nail 703.[address] [address] 04 Apr, 2015 Ingrown nail 703.[address] [address] Mar, [address] [address] Mar, Diabetic neuropathy 250.60 ; Fibromyalgia 729.1 and Lumbago 724.[address] [address] Mar, [address] [address] Jan, Diabetes mellitus without mention of complication, type II or unspecified type, uncontrolled 250.02 and Hypomagnesemia 275.[address] [address] Jan, [address] [address] Jan, Coronary atherosclerosis of unspecified type of vessel, [place] or graft 414.00 ; Essential hypertension, benign 401.1 ; Other and unspecified hyperlipidemia 272.4 ; Diabetes mellitus without mention of complication, type II or unspecified type, uncontrolled 250.02 ; Depressive disorder, not elsewhere classified 311 and Restless legs syndrome [RLS] 333.[address] [address] Jan, [address] [address] December, Sciatica 724.3 ; Muscle spasm 728.85 ; UTI (urinary tract infection) 599.0 and Dysuria 788.[address] [address] December, [address] [address] December, Scabies 133.0 and Leg pain 729.5 [address] [address] Nov, [address] [place] [address] Nov, [address] [address] Aug, [facility] [address] [place] [address], [place] [address] Aug, [address] [address] Jul, [address], [place] [address] Jul, [address] [address] Jul, [facility] [address] [place] [address] [address] Jul, [address] [address] Jul, [facility] [address] [place] [address], [place] [address] Jul, [address] [address] Jun, [facility] [address] [place] [address] [address] Jun, [facility] [place] [address] [place] [address] Jun, [facility] [place] [facility] [address] [id number], [place] [address] Jun, [facility] [place] [address] [place] [address] May, [facility] [place] [facility] [address] [id number], [place] [address] May, [facility] [place] [facility] [address] [id number] [address] Apr, [facility] [place] [facility] [id number], [place] [address] Apr, [facility] [place] [address] [place] [address] Apr, [facility] [place] [facility] [id number], [place] [address] Apr, [facility] [place] [address] [place] [address] Apr, [facility] [place] [facility] [id number], [place] [address] Apr, [facility] [place] [facility] [address] [id number], [place] [address] Apr, [facility] [place] [address] [place] [address] 18 Apr, 2014 [facility] [place] [facility] [address] [id number], [place] [address] 18 Apr, 2014 [facility] [place] [address] [place] [address] Apr, [facility] [place] [facility] [address] [id number], [place] [address] Apr, [facility] [place] [facility] [address] [id number], [place] [address] 10 Apr, 2014 [facility] [place] [address] [facility] [place] [address] Apr, [facility] [place] [address] [facility] [place] [address] Apr, [facility] [place] [facility] [address] [facility] [id number] [place] [address] Apr, [facility] [place] [facility] [id number] [place] [address] Apr, [facility] [place] [address] [facility] [place] [address] Mar, [facility] [place] [facility] [id number] [place] [address] Mar, [facility] [address] [address] [place] [address] Mar, [facility] [place] [facility] [id number] [place] [address] Mar, [facility] [place] [address] [facility] [place] [address] Feb, [facility] [place] [facility] [id number] [place] [address] Feb, [facility] [place] [address] [facility] [place] [address] December, [facility] [place] [facility] [id number] [place] [address] December, [facility] [address] [address] [place] [address] December, [facility] [place] [facility] [id number], [place] [address] December, [facility] [place] [address] [facility] [place] [address] Nov, [facility] [place] [facility] [id number], [place] [address] Nov, [facility] [address] [address] [place] [address] Nov, [facility] [place] [facility] [id number], [place] [address] 14 Nov, 2013 [facility] [place] [address] [facility] [place] [address] Nov, [facility] [place] [facility] [address] [facility] [id number] [place] [address] Nov, [facility] [place] [facility] [address] [facility] [id number] [place] [address] Oct, [facility] [place] [facility] [address] [facility] [id number] [place] [address] Oct, [facility] [place] [facility] [address] [facility] [id number] [place] [address] Aug, [facility] [place] [facility] [address] [facility] [id number] [place] [address] Aug, [facility] [place] [address] [facility] [place] [address] Aug, [facility] [place] [facility] [id number] [place] [address] Aug, [facility] [place] [facility] [id number] [place] [address] Aug, [facility] [place] [facility] [id number] [place] [address] Aug, [facility] [place] [address] [facility] [place] [address] Jul, [facility] [place] [facility] [id number] [place] [address] Jul, [facility] [place] [facility] [address] [facility] [id number] [place] [address] Jul, [facility] [place] [facility] [address] [facility] [id number] [place] [address] Jul, [facility] [place] [facility] [address] [facility] [id number] [place] [address] Jun, [facility] [place] [facility] [address] [facility] [id number], [place] [address] Jun, [facility] [place] [facility] [address] [id number] [place] [address] 12 Jun, 2012 [facility] [place] [facility] [address] [id number] [place] [address] 08 Jun, 2013 [facility] [place] [facility] [address] [id number] [place] [address] 08 Jun, 2012 [facility] [place] [facility] [address] [id number] [place] [address] 07 Jun, 2012 [facility] [place] [facility] [address] [id number] [place] [address] 07 Jun, 2012 [facility] [place] [facility] [address] [id number] [place] [address] 06 Jun, 2013 [facility] [place] [facility] [address] [id number] [place] [address] 06 Jun, 2013 [facility] [place] [facility] [address] [id number] [place] [address] 18 May, 2013 [facility] [place] [facility] [address] [id number] [place] [address] 18 May, 2013 [facility] [place] [facility] [address] [id number] [place] [address] 16 May, 2013 [facility] [place] [facility] [address] [id number] [place] [address] 16 May, 2013 [facility] [place] [facility] [address] [id number] [place] [address] 14 May, 2013 [facility] [place] [facility] [address] [id number] [place] [address] 14 May, 2013 [facility] [place] [facility] [address] [id number] [place] [address] 04 May, 2013 [facility] [place] [facility] [address] [id number] [place] [address] 04 Apr, 2013 [facility] [place] [facility] [address] [id number] [place] [address] Mar, [facility] [id number] [address] Mar, [facility] [address] [address] Mar, [facility] [id number] [address] Mar, [facility] [address] [address] Feb, [facility] [id number] [address] Feb, [facility] [address] [address] Feb, [facility] [address] [address] Feb, [facility] [address] [address] Feb, [facility] [address] [address] Feb, [facility] [address] [address] Jan, [facility] [id number] [address] Jan, [facility] [address] [id number], [place] [address] Jan, [facility] [address] [id number], [place] [address] Jan, IMMUNIZATIONS No Known Immunizations SOCIAL HISTORY Never Assessed REASON FOR VISIT refill atorvastatin PLAN OF CARE VITAL SIGNS MEDICATIONS Medication Instructions Dosage Frequency Start Date End Date Duration Status Atorvastatin Calcium 40 mg Orally Once a day 1 tablet 24h May, 90 days Active RESULTS No Results PROCEDURES No Known procedures INSTRUCTIONS MEDICATIONS ADMINISTERED No Known Medications MEDICAL (GENERAL) HISTORY Type Description Date Medical History Atherosclerotic heart disease of [place] coronary artery without angina pectoris Medical History [...]
--- OUTSIDE RECORDS SUMMARY | 2019-02-01 09:14 | XMS REPORT ---
Author Author SJ ALY [facility] [address] [facility] Address [address] [place] [address] Care Team Providers Care Department Store Manager Name Role Phone ALYSJ Unavailable PROBLEMS Type Condition ICD9-CM Code DLY94-IV Code Onset Dates Condition Status SNOMED Code Problem Essential (primary) hypertension I10 Active 34060089 Problem Type 2 diabetes mellitus with hyperglycemia E11.65 Active 765724425271360 Problem Pure hyperglyceridemia E78.1 Active 399508141 Problem Chronic obstructive pulmonary disease, unspecified COPD type J44.9 Active 77132501 Problem Essential hypertension I10 Active 56054538 Problem Restless legs syndrome G25.81 Active 18932933 Problem Type 2 diabetes mellitus with diabetic neuropathy, unspecified E11.40 Active 6734780335126 Problem DM neuro manif type II E11.40 Active 916343805 Problem Fibromyalgia M79.7 Active 047961093 Problem Solitary pulmonary nodule 793.11 Active 999732094 Problem Unspecified hypertrophic and atrophic condition of skin 701.9 Active 797174109 Problem Hypomagnesemia 275.2 Active 054065452 Problem Diabetic neuropathy 250.60 Active 743487744 Problem Coronary atherosclerosis of unspecified type of vessel, creek or graft 414.00 Active 219169346 Problem Type 2 diabetes mellitus without complication E11.9 Active 78185496 Problem Depressive disorder, not elsewhere classified 311 Active 68368385 Problem Cardiac murmur, unspecified R01.1 Active 615289545 ALLERGIES No Information ENCOUNTERS Encounter Location Date Diagnosis [facility] [address] [place] [address] Feb, Restless legs syndrome G25.81 and Fibromyalgia M79.7 [facility] [address] [place] [address] Feb, Essential hypertension I10 and Type 2 diabetes mellitus with hyperglycemia E11.65 [facility] [address] [place] [address] Feb, Essential (primary) hypertension I10 and Exposure to hepatitis C Z20.5 [facility] [address] [place] [address] Jan, [facility] [address] [address] Jan, [facility] [address] [address] Jan, [facility] [address] [address] Jan, [facility] [address] [place] [address] Jan, [facility] [address] [address] Jan, [facility] [address] [address] December, Essential (primary) hypertension I10 [facility] [address] [address] December, Restless legs syndrome G25.[address] [address] December, Restless legs syndrome G25.81 [facility] [address] [address] December, Restless legs syndrome G25.81 [facility] [address] [address] December, Restless legs syndrome G25.[address] [address] Nov, [facility] [address] [address] Nov, Type 2 diabetes mellitus with hyperglycemia E11.65 [facility] [address] [facility] [id number] [address] Nov, Essential hypertension I10 [address] [address] Oct, Restless legs syndrome G25.[address] [address] Aug, Type 2 diabetes mellitus with hyperglycemia E11.65 ; Restless legs syndrome G25.81 ; Fibromyalgia M79.7 ; Essential hypertension I10 and Urinary urgency R39.[address] [address] May, [address] [address] 16 May, 2017 Type 2 diabetes mellitus with hyperglycemia E11.[address] [address] May, [address] [address] Apr, Type 2 diabetes mellitus with hyperglycemia E11.[address] [address] Apr, [address] [address] Apr, Hospital discharge follow-up Z09 ; Cardiac murmur, unspecified R01.1 ; Tobacco abuse Z72.0 and Chronic obstructive pulmonary disease, unspecified COPD type J44.[address] [address] Mar, Type 2 diabetes mellitus with hyperglycemia E11.[address] [address] Feb, Type 2 diabetes mellitus with hyperglycemia E11.65 and Essential hypertension I10 [address] [address] Feb, Restless legs syndrome G25.81 ; Type 2 diabetes mellitus with hyperglycemia E11.65 ; Essential hypertension I10 and Right upper quadrant pain R10.[address] [address] Feb, [address] [address] Feb, [address] [address] Jan, Type 2 diabetes mellitus with hyperglycemia E11.65 and Right sided abdominal pain R10.[address] [address] Jan, [address] [address] 19 Jerry, 2017 Nausea R11.0 ; Essential hypertension I10 and Dizziness R42 [address] [address] Jan, [address] [address] Nov, [address] [address] Nov, [address] [address] Oct, [address] [address] Oct, [address] [address] Oct, [address] [address] Sep, [facility] [address] [facility] [id number] [address] Sep, Ganglion of tendon M67.40 and DM neuro manif type II E11.[address] [address] Aug, Pure hyperglyceridemia E78.[address] [address] Aug, [address] [address] Aug, [address] [address] Aug, [address] [address] Aug, Fibromyalgia M79.[address] [address] Aug, [address] [address] Aug, Fibromyalgia M79.[address] [address] Aug, Fibromyalgia M79.7 ; Mass of right foot R22.41 and Type 2 diabetes mellitus with hyperglycemia E11.[address] [address] Jun, [address] [address] Jun, Furuncle L02.92 and Methicillin resistant Staph aureus culture positive Z22.[address] [address] Jun, Furuncle L02.92 ; Cellulitis of other specified site L03.818 and Methicillin resistant Staph aureus culture positive Z22.[address] [address] Jun, [address] [address] Jun, Furuncle L02.92 and Cellulitis of other specified site L03.[address] [address] May, Pure hyperglyceridemia E78.1 ; Abscess L02.91 ; Restless legs syndrome G25.81 and Type 2 diabetes mellitus with hyperglycemia E11.[address] [address] May, [address] [address] May, [address] [address] May, [address] [address] Apr, [address] [address] Mar, Well woman exam Z01.419 ; Encounter for screening mammogram for breast cancer Z12.31 and History of cervical cancer Z85.[address] [address] Mar, Insect bite, multiple W57.XXXA ; Type 2 diabetes mellitus with diabetic neuropathy, unspecified E11.40 ; Essential (primary) hypertension I10 ; DM neuro manif type II E11.40 and Restless legs syndrome G25.[address] [address] Feb, [address] [address] Feb, [facility] [address] [place] [address] Feb, [facility] [address] [place] [address] Jan, [address] [address] Jan, [address] [address] Jan, Abscess L02.[address] [address] December, DM neuro manif type II E11.40 ; Pure hyperglyceridemia E78.1 ; Essential (primary) hypertension I10 and Type 2 diabetes mellitus without complication E11.[address] [address] Oct, [facility] [address] [address] Sep, [facility] [address] [address] Sep, [address] [address] Sep, [facility] [address] [address] Sep, Type 2 diabetes mellitus without complication E11.9 ; Pure hyperglyceridemia E78.1 ; Cardiac murmur, unspecified R01.1 and Essential (primary) hypertension I10 [address] [address] Aug, [facility] [address] [address] Jul, [facility] [address] [address] Jul, [facility] [address] [address] Jun, [facility] [address] [address] Jun, [facility] [address] [address] May, [address] [address] 09 May, 2015 [facility] [address] [place] [address] 07 May, [address] [address] May, [address] [address] May, [address] [address] May, [address] [address] Apr, Onychomycosis 110.[address] [address] Apr, [address] [address] 14 Apr, 2015 Nail dystrophy 703.[address] [address] 08 Apr, 2015 Ingrown nail 703.[address] [address] 04 Apr, 2015 Ingrown nail 703.[address] [address] Mar, [address] [address] Mar, Diabetic neuropathy 250.60 ; Fibromyalgia 729.1 and Lumbago 724.[address] [address] Mar, [address] [address] Jan, Diabetes mellitus without mention of complication, type II or unspecified type, uncontrolled 250.02 and Hypomagnesemia 275.[address] [address] Jan, [address] [address] Jan, Coronary atherosclerosis of unspecified type of vessel, creek or graft 414.00 ; Essential hypertension, benign 401.1 ; Other and unspecified hyperlipidemia 272.4 ; Diabetes mellitus without mention of complication, type II or unspecified type, uncontrolled 250.02 ; Depressive disorder, not elsewhere classified 311 and Restless legs syndrome [RLS] 333.[address] [address] Jan, [address] [address] December, Sciatica 724.3 ; Muscle spasm 728.85 ; UTI (urinary tract infection) 599.0 and Dysuria 788.[address] [address] December, [address] [address] December, Scabies 133.0 and Leg pain 729.5 [address] [address] Nov, [id number] [place] [address] Nov, [address] [address] Aug, [facility] [address] [place] [id number] [address] Aug, [address] [address] Jul, [address] [address] Jul, [address] [address] Jul, [facility] [address] [place] [id number] [address] Jul, [address] [address] Jul, [facility] [address] [place] [id number] [address] Jul, [address] [address] Jun, [facility] [address] [place] [id number] [address] Jun, [facility] [address] [place] [address] Jun, [facility] [place] [facility] [address] [id number], [place] [address] Jun, [facility] [place] [address] [place] [address] May, [facility] [place] [facility] [id number], [place] [address] May, [facility] [place] [facility] [id number], [place] [address] Apr, [facility] [place] [facility] [id number], [place] [address] Apr, [facility] [address] [address] [place] [address] Apr, [facility] [place] [facility] [id number], [place] [address] Apr, [facility] [place] [address] [place] [address] Apr, [facility] [place] [facility] [id number], [place] [address] Apr, [facility] [place] [facility] [id number], [place] [address] Apr, [facility] [address] [address] [place] [address] 18 Apr, 2014 [facility] [place] [facility] [address] [id number], [place] [address] 18 Apr, 2014 [facility] [address] [address] [place] [address] Apr, [facility] [place] [facility] [address] [id number], [place] [address] Apr, [facility] [place] [facility] [address] [id number], [place] [address] 10 Apr, 2014 [facility] [place] [address] [facility] [place] [address] Apr, [facility] [place] [address] [facility] [place] [address] Apr, [facility] [place] [facility] [address] [facility] [id number] [place] [address] Apr, [facility] [place] [facility] [id number] [place] [address] Apr, [facility] [place] [address] [facility] [place] [address] Mar, [facility] [place] [facility] [id number] [place] [address] Mar, [facility] [place] [address] [place] [address] Mar, [facility] [place] [facility] [id number] [place] [address] Mar, [facility] [place] [address] [facility] [place] [address] Feb, [facility] [place] [facility] [id number] [place] [address] Feb, [facility] [place] [address] [facility] [place] [address] December, [facility] [place] [facility] [id number] [place] [address] December, [facility] [address] [address] [place] [address] December, [facility] [place] [facility] [id number], [place] [address] December, [facility] [place] [address] [facility] [place] [address] Nov, [facility] [place] [facility] [id number], [place] [address] Nov, [facility] [address] [address] [place] [address] Nov, [facility] [place] [facility] [id number], [place] [address] 14 Nov, 2013 [facility] [place] [address] [facility] [place] [address] Nov, [facility] [place] [facility] [address] [facility] [id number] [place] [address] Nov, [facility] [place] [facility] [address] [facility] [id number] [place] [address] Oct, [facility] [place] [facility] [address] [facility] [id number] [place] [address] Oct, [facility] [place] [facility] [address] [facility] [id number] [place] [address] Aug, [facility] [place] [facility] [address] [facility] [id number] [place] [address] Aug, [facility] [place] [address] [facility] [place] [address] Aug, [facility] [place] [facility] [id number] [place] [address] Aug, [facility] [place] [facility] [id number] [place] [address] Aug, [facility] [place] [facility] [id number] [place] [address] Aug, [facility] [place] [address] [facility] [place] [address] Jul, [facility] [place] [facility] [id number] [place] [address] Jul, [facility] [place] [facility] [address] [facility] [id number] [place] [address] Jul, [facility] [place] [facility] [address] [facility] [id number] [place] [address] Jul, [facility] [place] [facility] [address] [facility] [id number] [place] [address] Jun, [facility] [place] [facility] [address] [facility] [id number] [address] Jun, [facility] [place] [facility] [address] [id number] [place] [address] 12 Jun, 2012 [facility] [place] [facility] [address] [id number] [place] [address] 08 Jun, 2013 [facility] [place] [facility] [address] [id number] [place] [address] 08 Jun, 2012 [facility] [place] [facility] [address] [id number] [place] [address] 07 Jun, 2012 [facility] [place] [facility] [address] [id number] [place] [address] 07 Jun, 2012 [facility] [place] [facility] [address] [id number] [place] [address] 06 Jun, 2013 [facility] [place] [facility] [address] [id number] [place] [address] 06 Jun, 2013 [facility] [place] [facility] [address] [id number] [place] [address] 18 May, 2013 [facility] [place] [facility] [address] [id number] [place] [address] 18 May, 2013 [facility] [place] [facility] [address] [id number] [place] [address] 16 May, 2013 [facility] [place] [facility] [address] [id number] [place] [address] 16 May, 2013 [facility] [place] [facility] [address] [id number] [place] [address] 14 May, 2013 [facility] [place] [facility] [address] [id number] [place] [address] 14 May, 2013 [facility] [place] [facility] [address] [id number] [place] [address] 04 May, 2013 [facility] [place] [facility] [address] [id number] [place] [address] 04 Apr, 2013 [facility] [place] [facility] [address] [id number] [place] [address] Mar, [facility] [address] [id number], [place] [address] Mar, [facility] [address], [place] [address] Mar, [facility] [address], [place] [address] Mar, [facility] [address], [place] [address] Feb, [facility] [address], [place] [address] Feb, [facility] [address], [place] [address] Feb, [facility] [address], [place] [address] Feb, [facility] [address], [place] [address] Feb, [facility] [address], [place] [address] Feb, [facility] [address], [place] [address] Jan, [facility] [address], [place] [address] Jan, [facility] [address], [place] [address] Jan, [facility] [id number], [place] [address] Jan, IMMUNIZATIONS No Known Immunizations SOCIAL HISTORY Never Assessed REASON FOR VISIT need samples PLAN OF CARE VITAL SIGNS MEDICATIONS Medication Instructions Dosage Frequency Start Date End Date Duration Status Ropinirole HCl 0.5 MG Orally HS 3 tablets Jun, 30 days Active RESULTS No Results PROCEDURES No Known procedures INSTRUCTIONS MEDICATIONS ADMINISTERED No Known Medications MEDICAL (GENERAL) HISTORY Type Description Date Medical History Atherosclerotic heart disease of creek coronary artery without angina pectoris Medical History [...]
--- OUTSIDE RECORDS SUMMARY | 2019-02-01 09:15 | XMS REPORT ---
Author Author SJ ALY [facility] [address] [facility] Address [address] [place] [address] Care Team Providers Care Engraving Patternmaker Name Role Phone ALYSJ Unavailable PROBLEMS Type Condition ICD9-CM Code ZBD18-ES Code Onset Dates Condition Status SNOMED Code Problem Essential (primary) hypertension I10 Active 71476346 Problem Type 2 diabetes mellitus with hyperglycemia E11.65 Active 939720366854812 Problem Pure hyperglyceridemia E78.1 Active 737671726 Problem Chronic obstructive pulmonary disease, unspecified COPD type J44.9 Active 91187830 Problem Essential hypertension I10 Active 07783412 Problem Restless legs syndrome G25.81 Active 64861270 Problem Type 2 diabetes mellitus with diabetic neuropathy, unspecified E11.40 Active 7049191835909 Problem DM neuro manif type II E11.40 Active 836587207 Problem Fibromyalgia M79.7 Active 209365663 Problem Solitary pulmonary nodule 793.11 Active 513186762 Problem Unspecified hypertrophic and atrophic condition of skin 701.9 Active 318600218 Problem Hypomagnesemia 275.2 Active 262225991 Problem Diabetic neuropathy 250.60 Active 803683086 Problem Coronary atherosclerosis of unspecified type of vessel, pokagon or graft 414.00 Active 301537269 Problem Type 2 diabetes mellitus without complication E11.9 Active 51532021 Problem Depressive disorder, not elsewhere classified 311 Active 14598263 Problem Cardiac murmur, unspecified R01.1 Active 494390580 ALLERGIES No Information ENCOUNTERS Encounter Location Date Diagnosis [facility] [address] [place] [address] Feb, Restless legs syndrome G25.81 and Fibromyalgia M79.7 [facility] [address] [place] [address] Feb, Essential hypertension I10 and Type 2 diabetes mellitus with hyperglycemia E11.65 [facility] [address] [place] [address] Feb, Essential (primary) hypertension I10 and Exposure to hepatitis C Z20.5 [facility] [address] [place] [address] Jan, [facility] [address] [place] [address] Jan, [facility] [place] [address] [place] [address] Jan, [facility] [address] [address] Jan, [facility] [address] [address] Jan, [facility] [place] [address] [place] [address] Jan, [facility] [address] [place] [address] December, Essential (primary) hypertension I10 [facility] [address] [address] December, Restless legs syndrome G25.81 [facility] [address] [address] December, Restless legs syndrome G25.81 [facility] [address] [address] December, Restless legs syndrome G25.81 [facility] [address] [address] December, Restless legs syndrome G25.81 [facility] [address] [address] Nov, [address] [address] Nov, Type 2 diabetes mellitus with hyperglycemia E11.65 [facility] [address] [facility] [id number] [address] Nov, Essential hypertension I10 [facility] [address] [address] 15 Oct, 2017 Restless legs syndrome G25.81 [facility] [address] [address] Aug, Type 2 diabetes mellitus with hyperglycemia E11.65 ; Restless legs syndrome G25.81 ; Fibromyalgia M79.7 ; Essential hypertension I10 and Urinary urgency R39.15 [facility] [address] [address] 30 May, 2017 [facility] [place] [address] [place] [address] 16 May, 2017 Type 2 diabetes mellitus with hyperglycemia E11.65 [facility] [place] [address] [place] [address] 10 May, 2017 [facility] [place] [address] [place] [address] 19 Apr, 2017 Type 2 diabetes mellitus with hyperglycemia E11.65 [facility] [place] [address] [place] [address] 15 Apr, 2017 [facility] [place] [address] [place] [address] 11 Apr, 2017 Hospital discharge follow-up Z09 ; Cardiac murmur, unspecified R01.1 ; Tobacco abuse Z72.0 and Chronic obstructive pulmonary disease, unspecified COPD type J44.9 [facility] [place] [address] [place] [address] Mar, Type 2 diabetes mellitus with hyperglycemia E11.65 [facility] [place] [address] [place] [address] Feb, Type 2 diabetes mellitus with hyperglycemia E11.65 and Essential hypertension I10 [facility] [place] [address] [place] [address] Feb, Restless legs syndrome G25.81 ; Type 2 diabetes mellitus with hyperglycemia E11.65 ; Essential hypertension I10 and Right upper quadrant pain R10.11 [facility] [place] [address] [place] [address] Feb, [facility] [place] [address] [place] [address] Feb, [facility] [place] [address] [place] [address] Jan, Type 2 diabetes mellitus with hyperglycemia E11.65 and Right sided abdominal pain R10.9 [facility] [place] [address] [place] [address] Jan, [facility] [place] [address] [place] [address] Jan, Nausea R11.0 ; Essential hypertension I10 and Dizziness R42 [facility] [place] [address] [place] [address] Jan, [facility] [place] [address] [place] [address] Nov, [facility] [place] [address] [place] [address] Nov, [facility] [place] [address] [place] [address] Oct, [facility] [place] [address] [place] [address] Oct, [facility] [address] [address] Oct, [facility] [address] Sep, [facility] [address] [facility] [id number] [address] Sep, Ganglion of tendon M67.40 and DM neuro manif type II E11.40 [facility] [address] [place] [address] Aug, Pure hyperglyceridemia E78.1 [facility] [address] [address] Aug, [facility] [address] [address] Aug, [facility] [address] [address] Aug, [facility] [address] [address] Aug, Fibromyalgia M79.7 [facility] [address] Aug, [facility] [address] [address] Aug, Fibromyalgia M79.7 [facility] [address] [address] Aug, Fibromyalgia M79.7 ; Mass of right foot R22.41 and Type 2 diabetes mellitus with hyperglycemia E11.65 [facility] [address] [place] [address] Jun, [facility] [place] [address] [place] [address] Jun, Furuncle L02.92 and Methicillin resistant Staph aureus culture positive Z22.322 [facility] [place] [address] [place] [address] 04 Jun, 2016 Furuncle L02.92 ; Cellulitis of other specified site L03.818 and Methicillin resistant Staph aureus culture positive Z22.322 [facility] [place] [address] [place] [address] Jun, [facility] [place] [address] [place] [address] Jun, Furuncle L02.92 and Cellulitis of other specified site L03.818 [facility] [address] [address] May, Pure hyperglyceridemia E78.1 ; Abscess L02.91 ; Restless legs syndrome G25.81 and Type 2 diabetes mellitus with hyperglycemia E11.[address] [address] May, [facility] [address] [address] May, [facility] [address] [address] May, [address] [address] Apr, [address] [address] Mar, Well woman exam Z01.419 ; Encounter for screening mammogram for breast cancer Z12.31 and History of cervical cancer Z85.[address] [address] Mar, Insect bite, multiple W57.XXXA ; Type 2 diabetes mellitus with diabetic neuropathy, unspecified E11.40 ; Essential (primary) hypertension I10 ; DM neuro manif type II E11.40 and Restless legs syndrome G25.[address] [address] Feb, [facility] [address] [address] Feb, [address] [address] Feb, [facility] [address] [address] Jan, [facility] [address] [address] Jan, [address] [address] Jan, Abscess L02.[address] [address] December, DM neuro manif type II E11.40 ; Pure hyperglyceridemia E78.1 ; Essential (primary) hypertension I10 and Type 2 diabetes mellitus without complication E11.9 [facility] [place] [address] [place] [address] Oct, [facility] [place] [address] [place] [address] Sep, [facility] [place] [address] [place] [address] Sep, [facility] [place] [address] [place] [address] Sep, [facility] [place] [address] [place] [address] Sep, Type 2 diabetes mellitus without complication E11.9 ; Pure hyperglyceridemia E78.1 ; Cardiac murmur, unspecified R01.1 and Essential (primary) hypertension I10 [facility] [place] [address] [place] [address] Aug, [facility] [place] [address] [place] [address] Jul, [facility] [place] [address] [place] [address] Jul, [facility] [place] [address] [place] [address] Jun, [facility] [place] [address] [place] [address] Jun, [facility] [place] [address] [place] [address] May, [facility] [place] [address] [place] [address] May, [facility] [place] [address] [place] [address] May, [facility] [place] [address] [place] [address] May, [facility] [place] [address] [place] [address] May, [facility] [place] [address] [place] [address] May, [facility] [place] [address] [place] [address] 29 Apr, 2015 Onychomycosis 110.1 [facility] [place] [address] [place] [address] 15 Apr, [address] [address] 14 Apr, 2015 Nail dystrophy 703.[address] [address] 08 Apr, 2015 Ingrown nail 703.[address] [address] 04 Apr, 2015 Ingrown nail 703.[address] [address] Mar, [address] [address] Mar, Diabetic neuropathy 250.60 ; Fibromyalgia 729.1 and Lumbago 724.[address] [address] Mar, [address] [address] Jan, Diabetes mellitus without mention of complication, type II or unspecified type, uncontrolled 250.02 and Hypomagnesemia 275.[address] [address] Jan, [address] [address] Jan, Coronary atherosclerosis of unspecified type of vessel, pokagon or graft 414.00 ; Essential hypertension, benign 401.1 ; Other and unspecified hyperlipidemia 272.4 ; Diabetes mellitus without mention of complication, type II or unspecified type, uncontrolled 250.02 ; Depressive disorder, not elsewhere classified 311 and Restless legs syndrome [RLS] 333.[address] [address] Jan, [address] [address] December, Sciatica 724.3 ; Muscle spasm 728.85 ; UTI (urinary tract infection) 599.0 and Dysuria 788.[address] [address] December, [address] [address] December, Scabies 133.0 and Leg pain 729.5 [facility] [id number] [address] 14 Nov, 2014 [facility] [address] [address] Nov, [facility] [place] [address] [place] [address] Aug, [facility] [place] [facility] [address] [address] Aug, [facility] [place] [address] [place] [address] Jul, [facility] [address] [address] Jul, [facility] [place] [address] [place] [address] Jul, [facility] [address] [place] [address] Jul, [facility] [place] [address] [place] [address] Jul, [facility] [address] [address] Jul, [facility] [place] [address] [place] [address] Jun, [facility] [address] [address] Jun, [facility] [place] [address] [place] [address] Jun, [facility] [address] [address] Jun, [facility] [place] [address] [place] [address] May, [facility] [address] [address] May, [facility] [address] [address] Apr, [facility] [place] [address] [address] Apr, [facility] [place] [address] [place] [address] Apr, 2013 [facility] [place] [address] [id number] [address] Apr, 2013 [facility] [place] [address] [place] [address] Apr, 2013 [facility] [place] [id number] [address] Apr, 2013 [facility] [place] [id number] [place] [address] Apr, 2013 [facility] [place] [address] [place] [address] Apr, 2013 [facility] [place] [id number] [place] [address] Apr, 2013 [facility] [place] [address] [place] [address] Apr, 2013 [facility] [id number] [place] [address] Apr, 2013 [facility] [id number] [place] [address] Apr, 2013 [facility] [place] [address] [place] [address] 08 Apr, 2013 [facility] [place] [address] [place] [address] 08 Apr, 2013 [facility] [place] [facility] [address] [id number] [address] Apr, 2013 [facility] [id number] [address] Apr, 2013 [facility] [place] [address] [place] [address] Mar, [facility] [place] [facility] [id number] [place] [address] Mar, [facility] [place] [address] [place] [address] Mar, [facility] [place] [facility] [id number] [address] Mar, [facility] [place] [address] [place] [address] Feb, [facility] [id number] [address] Feb, [facility] [place] [address] [place] [address] December, [facility] [id number] [address] December, [facility] [place] [address] [place] [address] December, [facility] [facility] [id number] [address] December, [facility] [place] [address] [place] [address] Nov, [facility] [id number] [address] Nov, [facility] [place] [address] [place] [address] Nov, [facility] [place] [facility] [id number] [address] Nov, [facility] [place] [address] [place] [address] Nov, [facility] [place] [facility] [address] [id number] [address] Nov, [facility] [place] [facility] [id number] [address] Oct, [facility] [place] [facility] [id number] [address] Oct, [facility] [place] [facility] [id number] [address] Aug, [facility] [place] [facility] [address] [facility] [id number] [address] Aug, [facility] [place] [address] [place] [address] Aug, [facility] [place] [facility] [address] [address] Aug, [facility] [address] [id number] [address] Aug, [facility] [place] [facility] [address] [facility] [id number] [address] Aug, [facility] [place] [address] [facility] [place] [address] Jul, [facility] [facility] [address] [id number] [address] Jul, [facility] [facility] [address] [id number] [address] Jul, [facility] [place] [facility] [address] [id number] [address] Jul, [facility] [facility] [address] [id number] [address] Jun, [facility] [facility] [address] [id number] [address] Jun, [facility] [place] [facility] [address] [id number] [place] [address] Jun, [facility] [place] [facility] [address] [facility] [id number] [place] [address] Jun, [facility] [place] [facility] [address] [id number] [address] Jun, [facility] [place] [facility] [address] [id number] [address] Jun, [facility] [place] [facility] [address] [id number] [place] [address] Jun, [facility] [place] [facility] [address] [facility] [id number] [address] Jun, [facility] [place] [facility] [address] [id number] [place] [address] Jun, [facility] [place] [facility] [address] [id number] [place] [address] 18 May, 2012 [facility] [place] [facility] [address] [id number] [place] [address] 18 May, 2012 [facility] [place] [facility] [address] [id number] [place] [address] 16 May, 2012 [facility] [place] [facility] [address] [id number] [place] [address] 16 May, 2012 [facility] [place] [facility] [address] [id number] [place] [address] 14 May, 2013 [facility] [place] [facility] [address] [id number] [place] [address] 14 May, 2013 [facility] [place] [facility] [address] [id number] [place] [address] 04 May, 2013 [facility] [place] [facility] [address] [id number] [place] [address] 04 Apr, 2013 [facility] [place] [facility] [address] [id number] [place] [address] Mar, [facility] [place] [facility] [address] [id number] [place] [address] Mar, [facility] [place] [facility] [address] [id number] [place] [address] Mar, [facility] [place] [facility] [address] [id number] [place] [address] Mar, [facility] [place] [facility] [address] [id number] [place] [address] Feb, [facility] [place] [facility] [address] [id number] [place] [address] Feb, [facility] [place] [facility] [address] [id number] [place] [address] Feb, [facility] [place] [facility] [address] [id number] [place] [address] Feb, [facility] [address] [facility] [id number] [address] Feb, [facility] [address] [id number] [address] Feb, [facility] [address] [id number] [address] Jan, [facility] [address] [id number] [address] Jan, [facility] [address] [id number] [address] Jan, [facility] [address] [id number] [address] Jan, IMMUNIZATIONS No Known Immunizations SOCIAL HISTORY Never Assessed REASON FOR VISIT Refill request PLAN OF CARE VITAL SIGNS MEDICATIONS Medication Instructions Dosage Frequency Start Date End Date Duration Status Ropinirole HCl 0.5 MG Orally HS 3 tablets Jun, 30 days Active RESULTS No Results PROCEDURES No Known procedures INSTRUCTIONS MEDICATIONS ADMINISTERED No Known Medications MEDICAL (GENERAL) HISTORY Type Description Date Medical History 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
--- OUTSIDE RECORDS SUMMARY | 2019-02-01 09:15 | XMS REPORT ---
Author Author SJ ALY [facility] [address] [facility] Address [address] [place] [address] Care Team Providers Care Inspecting Supervisor Name Role Phone ALYSJ Unavailable PROBLEMS Type Condition ICD9-CM Code ZSB27-BE Code Onset Dates Condition Status SNOMED Code Problem Essential (primary) hypertension I10 Active 19916937 Problem Type 2 diabetes mellitus with hyperglycemia E11.65 Active 557937157467378 Problem Pure hyperglyceridemia E78.1 Active 672834334 Problem Chronic obstructive pulmonary disease, unspecified COPD type J44.9 Active 47313027 Problem Essential hypertension I10 Active 54261803 Problem Restless legs syndrome G25.81 Active 07296125 Problem Type 2 diabetes mellitus with diabetic neuropathy, unspecified E11.40 Active 4767622653694 Problem DM neuro manif type II E11.40 Active 215864743 Problem Fibromyalgia M79.7 Active 950828484 Problem Solitary pulmonary nodule 793.11 Active 853968131 Problem Unspecified hypertrophic and atrophic condition of skin 701.9 Active 345836364 Problem Hypomagnesemia 275.2 Active 398457358 Problem Diabetic neuropathy 250.60 Active 530808831 Problem Coronary atherosclerosis of unspecified type of vessel, burns paiute or graft 414.00 Active 431281476 Problem Type 2 diabetes mellitus without complication E11.9 Active 86594637 Problem Depressive disorder, not elsewhere classified 311 Active 28222676 Problem Cardiac murmur, unspecified R01.1 Active 082882160 ALLERGIES No Information ENCOUNTERS Encounter Location Date Diagnosis [facility] [address] [place] [address] Feb, Restless legs syndrome G25.81 and Fibromyalgia M79.7 [facility] [address] [place] [address] Feb, Essential hypertension I10 and Type 2 diabetes mellitus with hyperglycemia E11.65 [facility] [address] [place] [address] Feb, Essential (primary) hypertension I10 and Exposure to hepatitis C Z20.5 [facility] [address] [place] [address] Jan, [facility] [address] [place] [address] Jan, [facility] [place] [address] [place] [address] Jan, [facility] [address] [address] Jan, [facility] [address] [address] Jan, [facility] [place] [address] [place] [address] Jan, [facility] [address] [place] [address] December, Essential (primary) hypertension I10 [facility] [address] [address] December, Restless legs syndrome G25.81 [facility] [address] [address] December, Restless legs syndrome G25.81 [facility] [address] [address] December, Restless legs syndrome G25.81 [facility] [address] [address] December, Restless legs syndrome G25.81 [facility] [address] [address] Nov, [address] [address] Nov, Type 2 diabetes mellitus with hyperglycemia E11.65 [facility] [address] [facility] [id number] [address] Nov, Essential hypertension I10 [facility] [address] [address] 15 Oct, 2017 Restless legs syndrome G25.81 [facility] [address] [address] Aug, Type 2 diabetes mellitus with hyperglycemia E11.65 ; Restless legs syndrome G25.81 ; Fibromyalgia M79.7 ; Essential hypertension I10 and Urinary urgency R39.15 [facility] [address] [address] 30 May, 2017 [facility] [place] [address] [place] [address] 16 May, 2017 Type 2 diabetes mellitus with hyperglycemia E11.65 [facility] [place] [address] [place] [address] 10 May, 2017 [facility] [place] [address] [place] [address] 19 Apr, 2017 Type 2 diabetes mellitus with hyperglycemia E11.65 [facility] [place] [address] [place] [address] 15 Apr, 2017 [facility] [place] [address] [place] [address] 11 Apr, 2017 Hospital discharge follow-up Z09 ; Cardiac murmur, unspecified R01.1 ; Tobacco abuse Z72.0 and Chronic obstructive pulmonary disease, unspecified COPD type J44.9 [facility] [place] [address] [place] [address] Mar, Type 2 diabetes mellitus with hyperglycemia E11.65 [facility] [place] [address] [place] [address] Feb, Type 2 diabetes mellitus with hyperglycemia E11.65 and Essential hypertension I10 [facility] [place] [address] [place] [address] Feb, Restless legs syndrome G25.81 ; Type 2 diabetes mellitus with hyperglycemia E11.65 ; Essential hypertension I10 and Right upper quadrant pain R10.11 [facility] [place] [address] [place] [address] Feb, [facility] [place] [address] [place] [address] Feb, [facility] [place] [address] [place] [address] Jan, Type 2 diabetes mellitus with hyperglycemia E11.65 and Right sided abdominal pain R10.9 [facility] [place] [address] [place] [address] Jan, [facility] [place] [address] [place] [address] Jan, Nausea R11.0 ; Essential hypertension I10 and Dizziness R42 [facility] [place] [address] [place] [address] Jan, [facility] [place] [address] [place] [address] Nov, [facility] [place] [address] [place] [address] Nov, [facility] [place] [address] [place] [address] Oct, [facility] [place] [address] [place] [address] Oct, [facility] [address] [address] Oct, [facility] [address] Sep, [facility] [address] [facility] [id number], [place] [address] Sep, Ganglion of tendon M67.40 and DM neuro manif type II E11.40 [facility] [address] [place] [address] Aug, Pure hyperglyceridemia E78.1 [facility] [address] [address] Aug, [facility] [address] [address] Aug, [facility] [address] [address] Aug, [facility] [address] [address] Aug, Fibromyalgia M79.7 [facility] [address] Aug, [facility] [address] [address] Aug, Fibromyalgia M79.7 [facility] [address] [address] Aug, Fibromyalgia M79.7 ; Mass of right foot R22.41 and Type 2 diabetes mellitus with hyperglycemia E11.65 [facility] [address] [place] [address] Jun, [facility] [place] [address] [place] [address] Jun, Furuncle L02.92 and Methicillin resistant Staph aureus culture positive Z22.322 [facility] [place] [address] [place] [address] 04 Jun, 2016 Furuncle L02.92 ; Cellulitis of other specified site L03.818 and Methicillin resistant Staph aureus culture positive Z22.322 [facility] [place] [address] [place] [address] Jun, [facility] [place] [address] [place] [address] Jun, Furuncle L02.92 and Cellulitis of other specified site L03.818 [facility] [address] [address] May, Pure hyperglyceridemia E78.1 ; Abscess L02.91 ; Restless legs syndrome G25.81 and Type 2 diabetes mellitus with hyperglycemia E11.[address] [address] May, [facility] [address] [address] May, [facility] [address] [address] May, [address] [address] Apr, [address] [address] Mar, Well woman exam Z01.419 ; Encounter for screening mammogram for breast cancer Z12.31 and History of cervical cancer Z85.[address] [address] Mar, Insect bite, multiple W57.XXXA ; Type 2 diabetes mellitus with diabetic neuropathy, unspecified E11.40 ; Essential (primary) hypertension I10 ; DM neuro manif type II E11.40 and Restless legs syndrome G25.[address] [address] Feb, [facility] [address] [address] Feb, [address] [address] Feb, [facility] [address] [address] Jan, [facility] [address] [address] Jan, [address] [address] Jan, Abscess L02.[address] [address] December, DM neuro manif type II E11.40 ; Pure hyperglyceridemia E78.1 ; Essential (primary) hypertension I10 and Type 2 diabetes mellitus without complication E11.9 [facility] [place] [address] [place] [address] Oct, [facility] [place] [address] [place] [address] Sep, [facility] [place] [address] [place] [address] Sep, [facility] [place] [address] [place] [address] Sep, [facility] [place] [address] [place] [address] Sep, Type 2 diabetes mellitus without complication E11.9 ; Pure hyperglyceridemia E78.1 ; Cardiac murmur, unspecified R01.1 and Essential (primary) hypertension I10 [facility] [place] [address] [place] [address] Aug, [facility] [place] [address] [place] [address] Jul, [facility] [place] [address] [place] [address] Jul, [facility] [place] [address] [place] [address] Jun, [facility] [place] [address] [place] [address] Jun, [facility] [place] [address] [place] [address] May, [facility] [place] [address] [place] [address] May, [facility] [place] [address] [place] [address] May, [facility] [place] [address] [place] [address] May, [facility] [place] [address] [place] [address] May, [facility] [place] [address] [place] [address] May, [facility] [place] [address] [place] [address] 29 Apr, 2015 Onychomycosis 110.1 [facility] [place] [address] [place] [address] 15 Apr, [address] [address] 14 Apr, 2015 Nail dystrophy 703.[address] [address] 08 Apr, 2015 Ingrown nail 703.[address] [address] 04 Apr, 2015 Ingrown nail 703.[address] [address] Mar, [address] [address] Mar, Diabetic neuropathy 250.60 ; Fibromyalgia 729.1 and Lumbago 724.[address] [address] Mar, [address] [address] Jan, Diabetes mellitus without mention of complication, type II or unspecified type, uncontrolled 250.02 and Hypomagnesemia 275.[address] [address] Jan, [address] [address] Jan, Coronary atherosclerosis of unspecified type of vessel, burns paiute or graft 414.00 ; Essential hypertension, benign 401.1 ; Other and unspecified hyperlipidemia 272.4 ; Diabetes mellitus without mention of complication, type II or unspecified type, uncontrolled 250.02 ; Depressive disorder, not elsewhere classified 311 and Restless legs syndrome [RLS] 333.[address] [address] Jan, [address] [address] December, Sciatica 724.3 ; Muscle spasm 728.85 ; UTI (urinary tract infection) 599.0 and Dysuria 788.[address] [address] December, [address] [address] December, Scabies 133.0 and Leg pain 729.5 [facility] [address] [id number] [address] 14 Nov, 2014 [facility] [address] [address] Nov, [facility] [place] [address] [place] [address] Aug, [facility] [place] [facility] [address], [place] [address] Aug, [facility] [place] [address] [place] [address] Jul, [facility] [address] [address] Jul, [facility] [place] [address] [place] [address] Jul, [facility] [id number] [place] [address] Jul, [facility] [place] [address] [place] [address] Jul, [facility] [address] [address] Jul, [facility] [place] [address] [place] [address] Jun, [facility] [address], [place] [address] Jun, [facility] [place] [address] [place] [address] Jun, [facility] [address], [place] [address] Jun, [facility] [place] [address] [place] [address] May, [facility] [address], [place] [address] May, [facility] [facility] [address], [place] [address] Apr, [facility] [place] [facility] [address], [place] [address] Apr, [facility] [place] [address] [facility] [place] [address] Apr, 2013 [facility] [place] [facility] [address] [id number] [address] Apr, 2013 [facility] [place] [address] [place] [address] Apr, 2013 [facility] [place] [facility] [address] [id number] [address] Apr, 2013 [facility] [place] [facility] [id number] [place] [address] Apr, 2013 [facility] [place] [address] [facility] [place] [address] Apr, 2013 [facility] [place] [facility] [id number] [place] [address] Apr, 2013 [facility] [place] [address] [place] [address] Apr, 2013 [facility] [place] [facility] [id number] [place] [address] Apr, 2013 [facility] [place] [facility] [id number] [place] [address] Apr, 2013 [facility] [place] [address] [facility] [place] [address] 08 Apr, 2013 [facility] [place] [address] [place] [address] 08 Apr, 2013 [facility] [place] [facility] [address] [id number], [place] [address] Apr, 2013 [facility] [place] [facility] [id number], [place] [address] Apr, 2013 [facility] [place] [address] [facility] [place] [address] Mar, [facility] [place] [facility] [id number] [place] [address] Mar, [facility] [place] [address] [place] [address] Mar, [facility] [place] [facility] [id number] [address] Mar, [facility] [place] [address] [facility] [place] [address] Feb, [facility] [id number] [address] Feb, [facility] [place] [address] [facility] [place] [address] December, [facility] [id number], [place] [address] December, [facility] [place] [address] [facility] [place] [address] December, [facility] [place] [facility] [id number] [address] December, [facility] [place] [address] [facility] [place] [address] Nov, [facility] [id number], [place] [address] Nov, [facility] [place] [address] [facility] [place] [address] Nov, [facility] [place] [facility] [address] [id number] [address] Nov, [facility] [place] [address] [facility] [place] [address] Nov, [facility] [place] [facility] [id number] [address] Nov, [facility] [place] [facility] [id number], [place] [address] Oct, [facility] [place] [facility] [address] [id number] [address] Oct, [facility] [place] [facility] [address] [id number], [place] [address] Aug, [facility] [place] [facility] [address] [facility] [id number], [place] [address] Aug, [facility] [place] [address] [facility] [place] [address] Aug, [facility] [place] [facility] [address] [address] Aug, [facility] [address] [id number], [place] [address] Aug, [facility] [place] [facility] [address] [facility] [id number], [place] [address] Aug, [facility] [place] [address] [place] [address] Jul, [facility] [place] [facility] [address] [id number], [place] [address] Jul, [facility] [place] [facility] [address] [id number], [place] [address] Jul, [facility] [place] [facility] [address] [id number], [place] [address] Jul, [facility] [place] [facility] [address] [id number], [place] [address] Jun, [facility] [place] [facility] [address] [id number], [place] [address] Jun, [facility] [place] [facility] [address] [id number], [place] [address] Jun, [facility] [place] [facility] [address] [facility] [id number], [place] [address] Jun, [facility] [place] [facility] [address] [id number], [place] [address] Jun, [facility] [place] [facility] [address] [id number], [place] [address] Jun, [facility] [place] [facility] [address] [id number], [place] [address] Jun, [facility] [place] [facility] [address] [facility] [id number], [place] [address] Jun, [facility] [place] [facility] [address] [id number], [place] [address] Jun, [facility] [place] [facility] [address] [id number] [place] [address] 18 May, 2012 [facility] [place] [facility] [address] [id number] [place] [address] 18 May, 2012 [facility] [place] [facility] [address] [id number] [place] [address] 16 May, 2012 [facility] [place] [facility] [address] [id number] [place] [address] 16 May, 2012 [facility] [place] [facility] [address] [id number] [place] [address] 14 May, 2013 [facility] [place] [facility] [address] [id number] [place] [address] 14 May, 2013 [facility] [place] [facility] [address] [id number] [place] [address] 04 May, 2013 [facility] [place] [facility] [address] [id number] [place] [address] 04 Apr, 2013 [facility] [place] [facility] [address] [id number] [place] [address] Mar, [facility] [place] [facility] [address] [id number] [place] [address] Mar, [facility] [place] [facility] [address] [id number] [place] [address] Mar, [facility] [place] [facility] [address] [id number] [place] [address] Mar, [facility] [place] [facility] [address] [id number] [place] [address] Feb, [facility] [place] [facility] [address] [id number] [place] [address] Feb, [facility] [place] [facility] [address] [id number] [place] [address] Feb, [facility] [place] [facility] [address] [id number] [place] [address] Feb, [facility] [address] [facility] [id number], [place] [address] Feb, [facility] [address] [id number], [place] [address] Feb, [facility] [address] [id number], [place] [address] Jan, [facility] [address] [id number], [place] [address] Jan, [facility] [id number], [place] [address] Jan, [facility] [address] [id number], [place] [address] Jan, IMMUNIZATIONS No Known Immunizations SOCIAL HISTORY Never Assessed REASON FOR VISIT PLAN OF CARE VITAL SIGNS MEDICATIONS Medication Instructions Dosage Frequency Start Date End Date Duration Status Ropinirole HCl 0.5 MG Orally HS 3 tablets Jun, 60 days Active RESULTS No Results PROCEDURES No Known procedures INSTRUCTIONS MEDICATIONS ADMINISTERED No Known Medications MEDICAL (GENERAL) HISTORY Type Description Date Medical History 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
--- OUTSIDE RECORDS SUMMARY | 2019-02-01 09:16 | XMS REPORT ---
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 Role Phone ALYSJ Unavailable PROBLEMS Type Condition ICD9-CM Code EUQ82-XV Code Onset Dates Condition Status SNOMED Code Problem Essential (primary) hypertension I10 Active 27333865 Problem Type 2 diabetes mellitus with hyperglycemia E11.65 Active [id number] Problem Pure hyperglyceridemia E78.1 Active 738181031 Problem Chronic obstructive pulmonary disease, unspecified COPD type J44.9 Active 59907576 Problem Essential hypertension I10 Active 80904188 Problem Restless legs syndrome G25.81 Active 61175694 Problem Type 2 diabetes mellitus with diabetic neuropathy, unspecified E11.40 Active 8557895423311 Problem DM neuro manif type II E11.40 Active 452638575 Problem Fibromyalgia M79.7 Active 923536125 Problem Solitary pulmonary nodule 793.11 Active 202468866 Problem Unspecified hypertrophic and atrophic condition of skin 701.9 Active 163536227 Problem Hypomagnesemia 275.2 Active 684298458 Problem Diabetic neuropathy 250.60 Active 481209470 Problem Coronary atherosclerosis of unspecified type of vessel, wiyot or graft 414.00 Active 035027312 Problem Type 2 diabetes mellitus without complication E11.9 Active 90428422 Problem Depressive disorder, not elsewhere classified 311 Active 60077446 Problem Cardiac murmur, unspecified R01.1 Active 739622814 ALLERGIES Substance Reaction Event Type Date Status Hydrocodone-Acetaminophen itching Drug Allergy Nov, Active Acetaminophen-Codeine #3 itching Drug Allergy Nov, Active ENCOUNTERS Encounter Location Date Diagnosis [facility] [address] [place] [address] Feb, Restless legs syndrome G25.81 and Fibromyalgia M79.7 [facility] [address] [place] [address] Feb, Essential hypertension I10 and Type 2 diabetes mellitus with hyperglycemia E11.65 [facility] [address] [place] [address] Feb, Essential (primary) hypertension I10 and Exposure to hepatitis C Z20.5 [facility] [place] [address] [place] [address] Jan, [facility] [place] [address] [place] [address] Jan, [facility] [place] [address] [place] [address] Jan, [facility] [place] [address] [place] [address] Jan, [facility] [place] [address] [place] [address] Jan, [facility] [place] [address] [place] [address] Jan, [facility] [place] [address] [place] [address] December, Essential (primary) hypertension I10 [facility] [place] [address] [place] [address] December, Restless legs syndrome G25.81 [facility] [place] [address] [place] [address] December, Restless legs syndrome G25.81 [facility] [place] [address] [place] [address] December, Restless legs syndrome G25.81 [facility] [place] [address] [place] [address] December, Restless legs syndrome G25.81 [facility] [place] [address] [place] [address] Nov, [facility] [place] [address] [place] [address] Nov, Type 2 diabetes mellitus with hyperglycemia E11.65 [facility] [address] [facility] [id number] [place] [address] Nov, Essential hypertension I10 [facility] [place] [address] [place] [address] Oct, Restless legs syndrome G25.81 [facility] [place] [address] [place] [address] Aug, Type 2 diabetes mellitus with hyperglycemia E11.65 ; Restless legs syndrome G25.81 ; Fibromyalgia M79.7 ; Essential hypertension I10 and Urinary urgency R39.15 [facility] [address] [place] [address] 30 May, 2017 [facility] [address] [place] [address] 16 May, 2017 Type 2 diabetes mellitus with hyperglycemia E11.65 [facility] [address] [place] [address] May, [facility] [address] [place] [address] Apr, Type 2 diabetes mellitus with hyperglycemia E11.65 [facility] [address] [place] [address] Apr, [facility] [address] [place] [address] 11 Apr, 2017 Hospital discharge follow-up Z09 ; Cardiac murmur, unspecified R01.1 ; Tobacco abuse Z72.0 and Chronic obstructive pulmonary disease, unspecified COPD type J44.9 [facility] [address] [place] [address] Mar, Type 2 diabetes mellitus with hyperglycemia E11.65 [facility] [address] [place] [address] Feb, Type 2 diabetes mellitus with hyperglycemia E11.65 and Essential hypertension I10 [facility] [address] [place] [address] Feb, Restless legs syndrome G25.81 ; Type 2 diabetes mellitus with hyperglycemia E11.65 ; Essential hypertension I10 and Right upper quadrant pain R10.11 [facility] [address] [place] [address] Feb, [facility] [address] [place] [address] Feb, [facility] [address] [place] [address] Jan, Type 2 diabetes mellitus with hyperglycemia E11.65 and Right sided abdominal pain R10.9 [facility] [address] [place] [address] Jan, [facility] [address] [place] [address] Jan, Nausea R11.0 ; Essential hypertension I10 and Dizziness R42 [facility] [address] [address] [place] [address] Jan, [facility] [address] [place] [address] Nov, [facility] [address] [place] [address] Nov, [facility] [address] [place] [address] Oct, [facility] [address] [place] [address] Oct, [facility] [address] [place] [address] Oct, [facility] [address] [place] [address] Sep, [facility] [address] [facility] [id number] [address] Sep, Ganglion of tendon M67.40 and DM neuro manif type II E11.40 [facility] [address] [place] [address] Aug, Pure hyperglyceridemia E78.1 [facility] [address] [place] [address] Aug, [facility] [address] [place] [address] Aug, [facility] [address] [place] [address] Aug, [facility] [address] [place] [address] Aug, Fibromyalgia M79.7 [facility] [address] [address] Aug, [facility] [address] [place] [address] Aug, Fibromyalgia M79.7 [facility] [address] [address] Aug, Fibromyalgia M79.7 ; Mass of right foot R22.41 and Type 2 diabetes mellitus with hyperglycemia E11.65 [facility] [place] [address] [place] [address] Jun, [facility] [address] [address] [place] [address] Jun, Furuncle L02.92 and Methicillin resistant Staph aureus culture positive Z22.322 [facility] [place] [address] [place] [address] 04 Jun, 2016 Furuncle L02.92 ; Cellulitis of other specified site L03.818 and Methicillin resistant Staph aureus culture positive Z22.[address] [address] Jun, [address] [address] Jun, Furuncle L02.92 and Cellulitis of other specified site L03.[address] [address] May, Pure hyperglyceridemia E78.1 ; Abscess L02.91 ; Restless legs syndrome G25.81 and Type 2 diabetes mellitus with hyperglycemia E11.[address] [address] May, [address] [address] May, [address] [address] May, [address] [address] Apr, [address] [address] Mar, Well woman exam Z01.419 ; Encounter for screening mammogram for breast cancer Z12.31 and History of cervical cancer Z85.[address] [address] Mar, Insect bite, multiple W57.XXXA ; Type 2 diabetes mellitus with diabetic neuropathy, unspecified E11.40 ; Essential (primary) hypertension I10 ; DM neuro manif type II E11.40 and Restless legs syndrome G25.[address] [address] Feb, [address] [address] Feb, [address] [address] Feb, [address] [address] Jan, [address] [address] Jan, [address] [address] Jan, Abscess L02.91 [facility] [address] [place] [address] December, DM neuro manif type II E11.40 ; Pure hyperglyceridemia E78.1 ; Essential (primary) hypertension I10 and Type 2 diabetes mellitus without complication E11.9 [facility] [address] [place] [address] Oct, [facility] [address] [address] [place] [address] Sep, [facility] [address] [place] [address] Sep, [facility] [address] [place] [address] Sep, [facility] [address] [address] [place] [address] Sep, Type 2 diabetes mellitus without complication E11.9 ; Pure hyperglyceridemia E78.1 ; Cardiac murmur, unspecified R01.1 and Essential (primary) hypertension I10 [facility] [address] [place] [address] Aug, [facility] [address] [place] [address] Jul, [facility] [address] [address] [place] [address] Jul, [facility] [address] [place] [address] Jun, [facility] [address] [place] [address] Jun, [facility] [address] [address] [place] [address] May, [facility] [address] [place] [address] May, [facility] [address] [address] [place] [address] May, [facility] [address] [address] [place] [address] May, [facility] [address] [address] [place] [address] May, [facility] [address] [address] [place] [address] May, [facility] [place] [address] [place] [address] 29 Apr, 2015 Onych[address]osis [address] [address] 15 Apr, [address] [address] 14 Apr, 2015 Nail dystrophy 703.[address] [address] 08 Apr, 2015 Ingrown nail 703.[address] [address] 04 Apr, 2015 Ingrown nail 703.[address] [address] Mar, [address] [address] Mar, Diabetic neuropathy 250.60 ; Fibromyalgia 729.1 and Lumbago 724.[address] [address] Mar, [address] [address] Jan, Diabetes mellitus without mention of complication, type II or unspecified type, uncontrolled 250.02 and Hypomagnesemia 275.[address] [address] Jan, [address] [address] Jan, Coronary atherosclerosis of unspecified type of vessel, wiyot or graft 414.00 ; Essential hypertension, benign 401.1 ; Other and unspecified hyperlipidemia 272.4 ; Diabetes mellitus without mention of complication, type II or unspecified type, uncontrolled 250.02 ; Depressive disorder, not elsewhere classified 311 and Restless legs syndrome [RLS] 333.[address] [address] Jan, [address] [address] December, Sciatica 724.3 ; Muscle spasm 728.85 ; UTI (urinary tract infection) 599.0 and Dysuria 788.[address] [address] December, [address] [address] December, Scabies 133.0 and Leg pain 729.5 [facility] [address], [place] [address] Nov, [facility] [address], [place] [address] Nov, [facility] [address] [place] [address] Aug, [facility] [address] [place] [place] [id number] [place] [address] Aug, [facility] [address] [address] [place] [address] Jul, [facility] [id number] [place] [address] Jul, [facility] [address] [place] [address] Jul, [facility] [id number] [place] [address] Jul, [facility] [address] [address] [place] [address] Jul, [facility] [id number] [place] [address] Jul, [facility] [address] [place] [address] Jun, [facility] [address], [place] [address] Jun, [facility] [address] [place] [address] Jun, [facility] [address], [place] [address] Jun, [facility] [address] [address] [place] [address] May, [facility] [address], [place] [address] May, [facility] [address], [place] [address] Apr, [facility] [place] [facility] [address] [facility] [id number], [place] [address] 29 Apr, 2013 [facility] [place] [address] [place] [address] Apr, 2013 [facility] [place] [facility] [address] [id number], [place] [address] Apr, 2013 [facility] [address] [address] [place] [address] Apr, 2013 [facility] [place] [facility] [address] [facility] [id number], [place] [address] Apr, 2013 [facility] [place] [facility] [address] [facility] [id number] [place] [address] Apr, 2013 [facility] [place] [address] [place] [address] Apr, 2013 [facility] [place] [facility] [id number], [place] [address] Apr, [facility] [place] [address] [place] [address] Apr, 2013 [facility] [place] [facility] [address] [facility] [id number], [place] [address] Apr, 2013 [facility] [place] [facility] [id number], [place] [address] Apr, 2013 [facility] [address] [address] [place] [address] Apr, 2013 [facility] [place] [address] [place] [address] Apr, 2013 [facility] [place] [facility] [address] [facility] [id number], [place] [address] 08 Apr, 2013 [facility] [place] [facility] [address] [facility] [id number], [place] [address] Apr, 2013 [facility] [address] [address] [place] [address] Mar, [facility] [place] [facility] [id number], [place] [address] Mar, [facility] [place] [address] [place] [address] Mar, [facility] [address] [facility] [id number], [place] [address] Mar, [facility] [place] [address] [place] [address] Feb, [facility] [place] [facility] [id number] [place] [address] Feb, [facility] [place] [address] [place] [address] December, [facility] [place] [facility] [address], [place] [address] December, [facility] [place] [address] [place] [address] December, [facility] [place] [facility] [id number], [place] [address] December, [facility] [place] [address] [place] [address] Nov, [facility] [id number], [place] [address] Nov, [facility] [place] [address] [place] [address] Nov, [facility] [place] [facility] [id number], [place] [address] Nov, [facility] [place] [address] [place] [address] Nov, [facility] [place] [facility] [id number], [place] [address] Nov, [facility] [place] [facility] [id number], [place] [address] Oct, [facility] [place] [facility] [id number], [place] [address] Oct, [facility] [place] [facility] [id number], [place] [address] Aug, [facility] [place] [facility] [id number], [place] [address] Aug, [facility] [place] [address] [place] [address] 06 Aug, 2013 [facility] [address] [id number], [place] [address] Aug, [facility] [place] [facility] [address] [facility] [id number], [place] [address] Aug, [facility] [place] [facility] [address] [facility] [id number], [place] [address] Aug, [facility] [place] [address] [place] [address] 13 Jul, 2013 [facility] [place] [facility] [address] [id number] [place] [address] Jul, [facility] [place] [facility] [address] [id number], [place] [address] Jul, [facility] [place] [facility] [address] [facility] [id number], [place] [address] Jul, [facility] [place] [facility] [address] [id number], [place] [address] Jun, [facility] [place] [facility] [address] [facility] [id number], [place] [address] Jun, [facility] [place] [facility] [address] [facility] [id number], [place] [address] Jun, [facility] [place] [facility] [address] [facility] [id number], [place] [address] Jun, [facility] [place] [facility] [address] [id number], [place] [address] Jun, [facility] [place] [facility] [address] [id number], [place] [address] Jun, [facility] [place] [facility] [address] [facility] [id number], [place] [address] Jun, [facility] [place] [facility] [address] [facility] [id number], [place] [address] Jun, [facility] [place] [facility] [address] [id number] [place] [address] 06 Jun, 2012 [facility] [place] [facility] [address] [id number] [place] [address] 18 May, 2012 [facility] [place] [facility] [address] [id number] [place] [address] 18 May, 2013 [facility] [place] [facility] [address] [id number] [place] [address] 16 May, 2012 [facility] [place] [facility] [address] [id number] [place] [address] 16 May, 2012 [facility] [place] [facility] [address] [id number] [place] [address] 14 May, 2013 [facility] [place] [facility] [address] [id number] [place] [address] 14 May, 2013 [facility] [place] [facility] [address] [id number] [place] [address] 04 May, 2013 [facility] [place] [facility] [address] [id number] [place] [address] Apr, [facility] [place] [facility] [address] [id number] [place] [address] Mar, [facility] [place] [facility] [address] [id number] [place] [address] Mar, [facility] [place] [facility] [address] [id number] [place] [address] Mar, [facility] [place] [facility] [address] [id number] [place] [address] Mar, [facility] [place] [facility] [address] [id number] [place] [address] Feb, [facility] [place] [facility] [address] [id number] [place] [address] Feb, [facility] [place] [facility] [address] [id number] [place] [address] Feb, [facility] [address] [facility] [id number], [place] [address] Feb, [facility] [id number], [place] [address] Feb, [facility] [id number], [place] [address] Feb, [facility] [address], [place] [address] Jan, [facility] [id number], [place] [address] Jan, [facility] [address], [place] [address] Jan, [facility] [id number], [place] [address] Jan, IMMUNIZATIONS No Known Immunizations SOCIAL HISTORY Never Assessed REASON FOR VISIT diabetic f/u A1C is 5.9 [facility] PLAN OF CARE Activity Details Follow Up prn, 3 Months Reason: VITAL SIGNS Height 63 in 2017-12-02 Weight 152.8 lbs 2017-12-02 Temperature 98.6 degrees Fahrenheit 2017-12-02 Heart Rate 56 bpm 2017-12-02 Respiratory Rate 16 2017-12-02 BMI 27.06 kg/m2 2017-12-02 Blood pressure systolic 124 mmHg 2017-12-02 Blood pressure diastolic 66 mmHg 2017-12-02 MEDICATIONS Medication Instructions Dosage Frequency Start Date End Date Duration Status Duloxetine HCl 60 mg Orally Once a day 2 capsule 24h Active Advair Diskus 250-50 MCG/DOSE by inhalation route Twice a day 1 puff 12h Active Magnesium 250 MG Orally Once a day 1 tablet with a meal 24h Active Lisinopril 2.5 MG Orally Once a day 1 tablet 24h 30 days Active Atorvastatin Calcium 40 mg Orally Once a day 1 tablet 24h 31 May, 2016 30 days Active Cymbalta 60 mg Orally Once a day 2 tablets 24h Active Protonix 40 MG Orally Once a day 1 packet 24h 20 Apr, 2017 30 day(s) Active Aspirin 81 MG Orally Once a day 1 tablet 24h Active MetFORMIN HCl ER 500 mg Orally 2 times a day 1 tablet with evening meal 12h Jan, 30 day(s) Active Metoprolol Tartrate 100 mg Orally Twice a day 1/2 tablet 12h Aug, Active Ropinirole HCl 0.5 MG Orally HS 3 tablets Jun, 30 days Active RESULTS Name Result Date Reference Range A1C (IN HOUSE) A1C IN HOUSE 5.9 4.3 - 5.6 % Previous A1c 6.4 Lot [id number] Exp date PROCEDURES Procedure Date Ordered Result Body Site GLYCATED HEMOGLOBIN TEST December 02, 2017 INSTRUCTIONS MEDICATIONS ADMINISTERED No Known Medications MEDICAL (GENERAL) HISTORY Type Description Date Medical History 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
--- OUTSIDE RECORDS SUMMARY | 2019-02-01 09:16 | XMS REPORT ---
Author Author SJ ALY [facility] [address] [facility] Address [address] [place] [address] Care Team Providers Care Metalworker Name Role Phone ALYSJ Unavailable PROBLEMS Type Condition ICD9-CM Code GPC14-YS Code Onset Dates Condition Status SNOMED Code Problem Essential (primary) hypertension I10 Active 35461514 Problem Type 2 diabetes mellitus with hyperglycemia E11.65 Active 330129728445731 Problem Pure hyperglyceridemia E78.1 Active 760456362 Problem Chronic obstructive pulmonary disease, unspecified COPD type J44.9 Active 22811279 Problem Essential hypertension I10 Active 93036609 Problem Restless legs syndrome G25.81 Active 46279088 Problem Type 2 diabetes mellitus with diabetic neuropathy, unspecified E11.40 Active 3521121179890 Problem DM neuro manif type II E11.40 Active 071370486 Problem Fibromyalgia M79.7 Active 895609819 Problem Solitary pulmonary nodule 793.11 Active 074515952 Problem Unspecified hypertrophic and atrophic condition of skin 701.9 Active 696288560 Problem Hypomagnesemia 275.2 Active 654199663 Problem Diabetic neuropathy 250.60 Active 750985061 Problem Coronary atherosclerosis of unspecified type of vessel, [place] or graft 414.00 Active 626204162 Problem Type 2 diabetes mellitus without complication E11.9 Active 45195675 Problem Depressive disorder, not elsewhere classified 311 Active 00600342 Problem Cardiac murmur, unspecified R01.1 Active 812943618 ALLERGIES No Information ENCOUNTERS Encounter Location Date Diagnosis [facility] [address] [place] [address] Feb, Restless legs syndrome G25.81 and Fibromyalgia M79.7 [facility] [address] [place] [address] Feb, Essential hypertension I10 and Type 2 diabetes mellitus with hyperglycemia E11.65 [facility] [address] [place] [address] Feb, Essential (primary) hypertension I10 and Exposure to hepatitis C Z20.5 [facility] [address] [place] [address] Jan, [facility] [address] [place] [address] Jan, [facility] [place] [address] [place] [address] Jan, [facility] [address] [address] Jan, [facility] [address] [address] Jan, [facility] [place] [address] [place] [address] Jan, [facility] [address] [place] [address] December, Essential (primary) hypertension I10 [facility] [address] [address] December, Restless legs syndrome G25.81 [facility] [address] [address] December, Restless legs syndrome G25.81 [facility] [address] [address] December, Restless legs syndrome G25.81 [facility] [address] [address] December, Restless legs syndrome G25.81 [facility] [address] [address] Nov, [address] [address] Nov, Type 2 diabetes mellitus with hyperglycemia E11.65 [facility] [address] [facility] [id number] [address] Nov, Essential hypertension I10 [facility] [address] [address] 15 Oct, 2017 Restless legs syndrome G25.81 [facility] [address] [address] Aug, Type 2 diabetes mellitus with hyperglycemia E11.65 ; Restless legs syndrome G25.81 ; Fibromyalgia M79.7 ; Essential hypertension I10 and Urinary urgency R39.15 [facility] [address] [address] 30 May, 2017 [facility] [address] [place] [address] 16 May, 2017 Type 2 diabetes mellitus with hyperglycemia E11.65 [facility] [place] [address] [place] [address] 10 May, 2017 [facility] [place] [address] [place] [address] 19 Apr, 2017 Type 2 diabetes mellitus with hyperglycemia E11.65 [facility] [place] [address] [place] [address] 15 Apr, 2017 [facility] [place] [address] [place] [address] 11 Apr, 2017 Hospital discharge follow-up Z09 ; Cardiac murmur, unspecified R01.1 ; Tobacco abuse Z72.0 and Chronic obstructive pulmonary disease, unspecified COPD type J44.9 [facility] [place] [address] [place] [address] Mar, Type 2 diabetes mellitus with hyperglycemia E11.65 [facility] [place] [address] [place] [address] Feb, Type 2 diabetes mellitus with hyperglycemia E11.65 and Essential hypertension I10 [facility] [place] [address] [place] [address] Feb, Restless legs syndrome G25.81 ; Type 2 diabetes mellitus with hyperglycemia E11.65 ; Essential hypertension I10 and Right upper quadrant pain R10.11 [facility] [place] [address] [place] [address] Feb, [facility] [place] [address] [place] [address] Feb, [facility] [place] [address] [place] [address] Jan, Type 2 diabetes mellitus with hyperglycemia E11.65 and Right sided abdominal pain R10.9 [facility] [place] [address] [place] [address] Jan, [facility] [place] [address] [place] [address] Jan, Nausea R11.0 ; Essential hypertension I10 and Dizziness R42 [facility] [place] [address] [place] [address] Jan, [facility] [place] [address] [place] [address] Nov, [facility] [place] [address] [place] [address] Nov, [facility] [place] [address] [place] [address] Oct, [facility] [place] [address] [place] [address] Oct, [facility] [address] [address] Oct, [facility] [address] Sep, [facility] [place] [address] [facility] [id number] [address] Sep, Ganglion of tendon M67.40 and DM neuro manif type II E11.40 [facility] [address] [place] [address] Aug, Pure hyperglyceridemia E78.1 [facility] [address] [address] Aug, [facility] [address] [address] Aug, [facility] [address] [address] Aug, [facility] [address] [address] Aug, Fibromyalgia M79.7 [facility] [address] [address] Aug, [facility] [address] [address] Aug, Fibromyalgia M79.7 [facility] [address] [address] Aug, Fibromyalgia M79.7 ; Mass of right foot R22.41 and Type 2 diabetes mellitus with hyperglycemia E11.65 [facility] [address] [place] [address] Jun, [facility] [place] [address] [place] [address] Jun, Furuncle L02.92 and Methicillin resistant Staph aureus culture positive Z22.322 [facility] [place] [address] [place] [address] 04 Jun, 2016 Furuncle L02.92 ; Cellulitis of other specified site L03.818 and Methicillin resistant Staph aureus culture positive Z22.322 [facility] [place] [address] [place] [address] Jun, [facility] [place] [address] [place] [address] Jun, Furuncle L02.92 and Cellulitis of other specified site L03.818 [facility] [address] [address] May, Pure hyperglyceridemia E78.1 ; Abscess L02.91 ; Restless legs syndrome G25.81 and Type 2 diabetes mellitus with hyperglycemia E11.[address] [address] May, [facility] [address] [address] May, [facility] [address] [address] May, [address] [address] Apr, [address] [address] Mar, Well woman exam Z01.419 ; Encounter for screening mammogram for breast cancer Z12.31 and History of cervical cancer Z85.[address] [address] Mar, Insect bite, multiple W57.XXXA ; Type 2 diabetes mellitus with diabetic neuropathy, unspecified E11.40 ; Essential (primary) hypertension I10 ; DM neuro manif type II E11.40 and Restless legs syndrome G25.[address] [address] Feb, [facility] [address] [address] Feb, [address] [address] Feb, [facility] [address] [address] Jan, [facility] [address] [address] Jan, [address] [address] Jan, Abscess L02.[address] [address] December, DM neuro manif type II E11.40 ; Pure hyperglyceridemia E78.1 ; Essential (primary) hypertension I10 and Type 2 diabetes mellitus without complication E11.9 [facility] [place] [address] [place] [address] Oct, [facility] [place] [address] [place] [address] Sep, [facility] [place] [address] [place] [address] Sep, [facility] [place] [address] [place] [address] Sep, [facility] [place] [address] [place] [address] Sep, Type 2 diabetes mellitus without complication E11.9 ; Pure hyperglyceridemia E78.1 ; Cardiac murmur, unspecified R01.1 and Essential (primary) hypertension I10 [facility] [place] [address] [place] [address] Aug, [facility] [place] [address] [place] [address] Jul, [facility] [place] [address] [place] [address] Jul, [facility] [place] [address] [place] [address] Jun, [facility] [place] [address] [place] [address] Jun, [facility] [place] [address] [place] [address] May, [facility] [place] [address] [place] [address] May, [facility] [place] [address] [place] [address] May, [facility] [place] [address] [place] [address] May, [facility] [place] [address] [place] [address] May, [facility] [place] [address] [place] [address] May, [facility] [place] [address] [place] [address] 29 Apr, 2015 Onychomycosis 110.1 [facility] [place] [address] [place] [address] 15 Apr, [address] [address] 14 Apr, 2015 Nail dystrophy 703.[address] [address] 08 Apr, 2015 Ingrown nail 703.[address] [address] 04 Apr, 2015 Ingrown nail 703.[address] [address] Mar, [address] [address] Mar, Diabetic neuropathy 250.60 ; Fibromyalgia 729.1 and Lumbago 724.[address] [address] Mar, [address] [address] Jan, Diabetes mellitus without mention of complication, type II or unspecified type, uncontrolled 250.02 and Hypomagnesemia 275.[address] [address] Jan, [address] [address] Jan, Coronary atherosclerosis of unspecified type of vessel, [place] or graft 414.00 ; Essential hypertension, benign 401.1 ; Other and unspecified hyperlipidemia 272.4 ; Diabetes mellitus without mention of complication, type II or unspecified type, uncontrolled 250.02 ; Depressive disorder, not elsewhere classified 311 and Restless legs syndrome [RLS] 333.[address] [address] Jan, [address] [address] December, Sciatica 724.3 ; Muscle spasm 728.85 ; UTI (urinary tract infection) 599.0 and Dysuria 788.[address] [address] December, [address] [address] December, Scabies 133.0 and Leg pain 729.5 [facility] [place] [id number] [address] 14 Nov, 2014 [facility] [address] [address] Nov, [facility] [place] [address] [place] [address] Aug, [facility] [place] [facility] [address] [address] Aug, [facility] [place] [address] [place] [address] Jul, [facility] [address] [address] Jul, [facility] [place] [address] [place] [address] Jul, [facility] [id number] [place] [address] Jul, [facility] [place] [address] [place] [address] Jul, [facility] [place] [facility] [address] [address] Jul, [facility] [place] [address] [place] [address] Jun, [facility] [address] [address] Jun, [facility] [place] [address] [place] [address] Jun, [facility] [place] [facility] [address] [address] Jun, [facility] [place] [address] [place] [address] May, [facility] [place] [facility] [address] [address] May, [facility] [place] [facility] [address] [address] Apr, [facility] [place] [facility] [address] [address] Apr, [facility] [place] [address] [place] [address] Apr, 2013 [facility] [place] [facility] [id number] [address] Apr, 2013 [facility] [place] [address] [place] [address] Apr, 2013 [facility] [place] [facility] [id number] [address] Apr, 2013 [facility] [place] [facility] [id number] [place] [address] Apr, 2013 [facility] [place] [address] [place] [address] Apr, 2013 [facility] [place] [facility] [id number] [place] [address] Apr, 2013 [facility] [place] [address] [place] [address] Apr, 2013 [facility] [place] [facility] [id number] [place] [address] Apr, 2013 [facility] [place] [facility] [id number] [place] [address] Apr, 2013 [facility] [place] [address] [place] [address] 08 Apr, 2013 [facility] [place] [address] [place] [address] 08 Apr, 2013 [facility] [place] [facility] [id number] [address] Apr, 2013 [facility] [place] [facility] [id number] [address] Apr, 2013 [facility] [place] [address] [place] [address] Mar, [facility] [place] [facility] [id number] [place] [address] Mar, [facility] [place] [address] [place] [address] Mar, [facility] [place] [facility] [id number] [address] Mar, [facility] [place] [address] [place] [address] Feb, [facility] [id number] [address] Feb, [facility] [place] [address] [place] [address] December, [facility] [id number] [address] December, [facility] [place] [address] [place] [address] December, [facility] [place] [facility] [id number] [address] December, [facility] [place] [address] [place] [address] Nov, [facility] [id number] [address] Nov, [facility] [place] [address] [place] [address] Nov, [facility] [place] [facility] [id number] [address] Nov, [facility] [place] [address] [place] [address] Nov, [facility] [place] [facility] [id number] [address] Nov, [facility] [place] [facility] [id number] [address] Oct, [facility] [place] [facility] [id number] [address] Oct, [facility] [place] [facility] [id number] [address] Aug, [facility] [place] [facility] [address] [facility] [id number][place] [address] Aug, [facility] [place] [address] [place] [address] Aug, [facility] [place] [facility] [address] [address] Aug, [facility] [address] [id number][place] [address] Aug, [facility] [place] [facility] [address] [facility] [id number][place] [address] Aug, [facility] [place] [address] [place] [address] Jul, [facility] [place] [facility] [address] [id number][place] [address] Jul, [facility] [place] [facility] [address] [id number][place] [address] Jul, [facility] [place] [facility] [address] [id number][place] [address] Jul, [facility] [place] [facility] [id number] [address] Jun, [facility] [place] [facility] [address] [id number][place] [address] Jun, [facility] [place] [facility] [address] [id number][place] [address] Jun, [facility] [place] [facility] [address] [facility] [id number][place] [address] Jun, [facility] [place] [facility] [id number] [address] Jun, [facility] [place] [facility] [address] [id number][place] [address] Jun, [facility] [place] [facility] [address] [id number][place] [address] Jun, [facility] [place] [facility] [address] [facility] [id number][place] [address] Jun, [facility] [place] [facility] [address] [id number][place] [address] Jun, [facility] [place] [facility] [address] [id number] [place] [address] 18 May, 2012 [facility] [place] [facility] [address] [id number] [place] [address] 18 May, 2012 [facility] [place] [facility] [address] [id number] [place] [address] 16 May, 2012 [facility] [place] [facility] [address] [id number] [place] [address] 16 May, 2012 [facility] [place] [facility] [address] [id number] [place] [address] 14 May, 2013 [facility] [place] [facility] [address] [id number] [place] [address] 14 May, 2013 [facility] [place] [facility] [address] [id number] [place] [address] 04 May, 2013 [facility] [place] [facility] [address] [id number] [place] [address] 04 Apr, 2013 [facility] [place] [facility] [address] [id number] [place] [address] Mar, [facility] [place] [facility] [address] [id number] [place] [address] Mar, [facility] [place] [facility] [address] [id number] [place] [address] Mar, [facility] [place] [facility] [address] [id number] [place] [address] Mar, [facility] [place] [facility] [address] [id number] [place] [address] Feb, [facility] [place] [facility] [address] [id number] [place] [address] Feb, [facility] [place] [facility] [address] [id number] [place] [address] Feb, [facility] [place] [facility] [address] [id number] [place] [address] Feb, [facility] [address] [facility] [id number][place] [address] Feb, [facility] [id number] [address] Feb, [facility] [id number] [address] Jan, [facility] [id number] [address] Jan, [facility] [id number] [address] Jan, [facility] [id number] [address] Jan, IMMUNIZATIONS No Known Immunizations SOCIAL HISTORY Never Assessed REASON FOR VISIT Needs referral/request call back PLAN OF CARE VITAL SIGNS MEDICATIONS Unknown Medications RESULTS No Results PROCEDURES No Known procedures INSTRUCTIONS MEDICATIONS ADMINISTERED No Known Medications MEDICAL (GENERAL) HISTORY Type Description Date Medical History Atherosclerotic heart disease of [place] coronary artery without angina pectoris Medical History [...]
--- OUTSIDE RECORDS SUMMARY | 2019-02-01 09:17 | XMS REPORT ---
Author Author SJ ALY [facility] [address] [facility] Address [address] [place] [address] Care Team Providers Care Drosser Name Role Phone ALYSJ Unavailable PROBLEMS Type Condition ICD9-CM Code CHA16-EZ Code Onset Dates Condition Status SNOMED Code Problem Essential (primary) hypertension I10 Active 35690334 Problem Type 2 diabetes mellitus with hyperglycemia E11.65 Active 835427138857395 Problem Pure hyperglyceridemia E78.1 Active 672556322 Problem Chronic obstructive pulmonary disease, unspecified COPD type J44.9 Active 84121198 Problem Essential hypertension I10 Active 86979805 Problem Restless legs syndrome G25.81 Active 46611093 Problem Type 2 diabetes mellitus with diabetic neuropathy, unspecified E11.40 Active 4301560907348 Problem DM neuro manif type II E11.40 Active 381928094 Problem Fibromyalgia M79.7 Active 675438421 Problem Solitary pulmonary nodule 793.11 Active 923626622 Problem Unspecified hypertrophic and atrophic condition of skin 701.9 Active 459412348 Problem Hypomagnesemia 275.2 Active 624884363 Problem Diabetic neuropathy 250.60 Active 402873220 Problem Coronary atherosclerosis of unspecified type of vessel, [place]-cay[place] or graft 414.00 Active 173792816 Problem Type 2 diabetes mellitus without complication E11.9 Active 15147611 Problem Depressive disorder, not elsewhere classified 311 Active 41132995 Problem Cardiac murmur, unspecified R01.1 Active 291303325 ALLERGIES No Information ENCOUNTERS Encounter Location Date Diagnosis [facility] [address] [place] [address] Feb, Restless legs syndrome G25.81 and Fibromyalgia M79.7 [facility] [address] [place] [address] Feb, Essential hypertension I10 and Type 2 diabetes mellitus with hyperglycemia E11.65 [facility] [address] [place] [address] Feb, Essential (primary) hypertension I10 and Exposure to hepatitis C Z20.5 [facility] [address] [place] [address] Jan, [facility] [address] [place] [address] Jan, [facility] [place] [address] [place] [address] Jan, [facility] [address] [address] Jan, [facility] [address] [address] Jan, [facility] [place] [address] [place] [address] Jan, [facility] [address] [place] [address] December, Essential (primary) hypertension I10 [facility] [address] [address] December, Restless legs syndrome G25.81 [facility] [address] [address] December, Restless legs syndrome G25.81 [facility] [address] [address] December, Restless legs syndrome G25.81 [facility] [address] [address] December, Restless legs syndrome G25.81 [facility] [address] [address] Nov, [address] [address] Nov, Type 2 diabetes mellitus with hyperglycemia E11.65 [facility] [address] [facility] [id number] [address] Nov, Essential hypertension I10 [facility] [address] [address] 15 Oct, 2017 Restless legs syndrome G25.81 [facility] [address] [address] Aug, Type 2 diabetes mellitus with hyperglycemia E11.65 ; Restless legs syndrome G25.81 ; Fibromyalgia M79.7 ; Essential hypertension I10 and Urinary urgency R39.15 [facility] [address] [address] 30 May, 2017 [facility] [address] [place] [address] 16 May, 2017 Type 2 diabetes mellitus with hyperglycemia E11.65 [facility] [place] [address] [place] [address] 10 May, 2017 [facility] [place] [address] [place] [address] 19 Apr, 2017 Type 2 diabetes mellitus with hyperglycemia E11.65 [facility] [place] [address] [place] [address] 15 Apr, 2017 [facility] [place] [address] [place] [address] 11 Apr, 2017 Hospital discharge follow-up Z09 ; Cardiac murmur, unspecified R01.1 ; Tobacco abuse Z72.0 and Chronic obstructive pulmonary disease, unspecified COPD type J44.9 [facility] [place] [address] [place] [address] Mar, Type 2 diabetes mellitus with hyperglycemia E11.65 [facility] [place] [address] [place] [address] Feb, Type 2 diabetes mellitus with hyperglycemia E11.65 and Essential hypertension I10 [facility] [place] [address] [place] [address] Feb, Restless legs syndrome G25.81 ; Type 2 diabetes mellitus with hyperglycemia E11.65 ; Essential hypertension I10 and Right upper quadrant pain R10.11 [facility] [place] [address] [place] [address] Feb, [facility] [place] [address] [place] [address] Feb, [facility] [place] [address] [place] [address] Jan, Type 2 diabetes mellitus with hyperglycemia E11.65 and Right sided abdominal pain R10.9 [facility] [place] [address] [place] [address] Jan, [facility] [place] [address] [place] [address] Jan, Nausea R11.0 ; Essential hypertension I10 and Dizziness R42 [facility] [place] [address] [place] [address] Jan, [facility] [place] [address] [place] [address] Nov, [facility] [place] [address] [place] [address] Nov, [facility] [place] [address] [place] [address] Oct, [facility] [place] [address] [place] [address] Oct, [facility] [address] [address] Oct, [facility] [address] Sep, [facility] [address] [facility] [id number] [address] Sep, Ganglion of tendon M67.40 and DM neuro manif type II E11.40 [facility] [address] [place] [address] Aug, Pure hyperglyceridemia E78.1 [facility] [address] [address] Aug, [facility] [address] [address] Aug, [facility] [address] [address] Aug, [facility] [address] [address] Aug, Fibromyalgia M79.7 [facility] [address] Aug, [facility] [address] [address] Aug, Fibromyalgia M79.7 [facility] [address] [address] Aug, Fibromyalgia M79.7 ; Mass of right foot R22.41 and Type 2 diabetes mellitus with hyperglycemia E11.65 [facility] [address] [place] [address] Jun, [facility] [place] [address] [place] [address] Jun, Furuncle L02.92 and Methicillin resistant Staph aureus culture positive Z22.322 [facility] [place] [address] [place] [address] 04 Jun, 2016 Furuncle L02.92 ; Cellulitis of other specified site L03.818 and Methicillin resistant Staph aureus culture positive Z22.322 [facility] [place] [address] [place] [address] Jun, [facility] [place] [address] [place] [address] Jun, Furuncle L02.92 and Cellulitis of other specified site L03.818 [facility] [address] [address] May, Pure hyperglyceridemia E78.1 ; Abscess L02.91 ; Restless legs syndrome G25.81 and Type 2 diabetes mellitus with hyperglycemia E11.[address] [address] May, [facility] [address] [address] May, [facility] [address] [address] May, [address] [address] Apr, [address] [address] Mar, Well woman exam Z01.419 ; Encounter for screening mammogram for breast cancer Z12.31 and History of cervical cancer Z85.[address] [address] Mar, Insect bite, multiple W57.XXXA ; Type 2 diabetes mellitus with diabetic neuropathy, unspecified E11.40 ; Essential (primary) hypertension I10 ; DM neuro manif type II E11.40 and Restless legs syndrome G25.[address] [address] Feb, [facility] [address] [address] Feb, [address] [address] Feb, [facility] [address] [address] Jan, [facility] [address] [address] Jan, [address] [address] Jan, Abscess L02.[address] [address] December, DM neuro manif type II E11.40 ; Pure hyperglyceridemia E78.1 ; Essential (primary) hypertension I10 and Type 2 diabetes mellitus without complication E11.9 [facility] [place] [address] [place] [address] Oct, [facility] [place] [address] [place] [address] Sep, [facility] [place] [address] [place] [address] Sep, [facility] [place] [address] [place] [address] Sep, [facility] [place] [address] [place] [address] Sep, Type 2 diabetes mellitus without complication E11.9 ; Pure hyperglyceridemia E78.1 ; Cardiac murmur, unspecified R01.1 and Essential (primary) hypertension I10 [facility] [place] [address] [place] [address] Aug, [facility] [place] [address] [place] [address] Jul, [facility] [place] [address] [place] [address] Jul, [facility] [place] [address] [place] [address] Jun, [facility] [place] [address] [place] [address] Jun, [facility] [place] [address] [place] [address] May, [facility] [place] [address] [place] [address] May, [facility] [place] [address] [place] [address] May, [facility] [place] [address] [place] [address] May, [facility] [place] [address] [place] [address] May, [facility] [place] [address] [place] [address] May, [facility] [place] [address] [place] [address] 29 Apr, 2015 Onychomycosis 110.1 [facility] [place] [address] [place] [address] 15 Apr, [address] [address] 14 Apr, 2015 Nail dystrophy 703.[address] [address] 08 Apr, 2015 Ingrown nail 703.[address] [address] 04 Apr, 2015 Ingrown nail 703.[address] [address] Mar, [address] [address] Mar, Diabetic neuropathy 250.60 ; Fibromyalgia 729.1 and Lumbago 724.[address] [address] Mar, [address] [address] Jan, Diabetes mellitus without mention of complication, type II or unspecified type, uncontrolled 250.02 and Hypomagnesemia 275.[address] [address] Jan, [address] [address] Jan, Coronary atherosclerosis of unspecified type of vessel, seneca-cay[place] or graft 414.00 ; Essential hypertension, benign 401.1 ; Other and unspecified hyperlipidemia 272.4 ; Diabetes mellitus without mention of complication, type II or unspecified type, uncontrolled 250.02 ; Depressive disorder, not elsewhere classified 311 and Restless legs syndrome [RLS] 333.[address] [address] Jan, [address] [address] December, Sciatica 724.3 ; Muscle spasm 728.85 ; UTI (urinary tract infection) 599.0 and Dysuria 788.[address] [address] December, [address] [address] December, Scabies 133.0 and Leg pain 729.5 [facility] [id number] [address] 14 Nov, 2014 [facility] [address] [address] Nov, [facility] [place] [address] [place] [address] Aug, [facility] [place] [facility] [address] [address] Aug, [facility] [place] [address] [place] [address] Jul, [facility] [address] [address] Jul, [facility] [place] [address] [place] [address] Jul, [facility] [id number] [place] [address] Jul, [facility] [place] [address] [place] [address] Jul, [facility] [place] [address] [address] Jul, [facility] [place] [address] [place] [address] Jun, [facility] [address] [address] Jun, [facility] [place] [address] [place] [address] Jun, [facility] [place] [id number] [address] Jun, [facility] [place] [address] [place] [address] May, [facility] [place] [address] [address] May, [facility] [place] [id number] [address] Apr, [facility] [place] [facility] [address] [address] Apr, [facility] [place] [address] [place] [address] Apr, 2013 [facility] [place] [facility] [id number] [address] Apr, 2013 [facility] [place] [address] [place] [address] Apr, 2013 [facility] [place] [facility] [id number] [address] Apr, 2013 [facility] [place] [facility] [id number] [place] [address] Apr, 2013 [facility] [place] [address] [place] [address] Apr, 2013 [facility] [place] [facility] [id number] [place] [address] Apr, 2013 [facility] [place] [address] [place] [address] Apr, 2013 [facility] [place] [facility] [id number] [place] [address] Apr, 2013 [facility] [place] [facility] [id number] [place] [address] Apr, 2013 [facility] [place] [address] [place] [address] 08 Apr, 2013 [facility] [place] [address] [place] [address] 08 Apr, 2013 [facility] [place] [facility] [id number] [address] Apr, 2013 [facility] [place] [facility] [id number] [address] Apr, 2013 [facility] [place] [address] [place] [address] Mar, [facility] [place] [facility] [id number] [place] [address] Mar, [facility] [place] [address] [place] [address] Mar, [facility] [place] [facility] [id number] [address] Mar, [facility] [place] [address] [place] [address] Feb, [facility] [id number] [address] Feb, [facility] [place] [address] [place] [address] December, [facility] [id number] [address] December, [facility] [place] [address] [place] [address] December, [facility] [place] [facility] [id number] [address] December, [facility] [place] [address] [place] [address] Nov, [facility] [id number] [address] Nov, [facility] [place] [address] [place] [address] Nov, [facility] [place] [facility] [id number] [address] Nov, [facility] [place] [address] [place] [address] Nov, [facility] [place] [facility] [id number] [address] Nov, [facility] [place] [facility] [id number] [address] Oct, [facility] [place] [facility] [id number] [address] Oct, [facility] [place] [facility] [id number] [address] Aug, [facility] [place] [facility] [address] [facility] [id number] [address] Aug, [facility] [place] [address] [place] [address] Aug, [facility] [place] [facility] [address] [address] Aug, [facility] [address] [id number] [address] Aug, [facility] [place] [facility] [address] [facility] [id number] [address] Aug, [facility] [place] [address] [facility] [place] [address] Jul, [facility] [place] [facility] [address] [id number] [address] Jul, [facility] [place] [facility] [address] [id number] [address] Jul, [facility] [place] [facility] [address] [id number] [address] Jul, [facility] [place] [facility] [id number] [address] Jun, [facility] [place] [facility] [address] [id number] [address] Jun, [facility] [place] [facility] [address] [id number] [address] Jun, [facility] [place] [facility] [address] [facility] [id number] [place] [address] Jun, [facility] [place] [facility] [id number] [address] Jun, [facility] [place] [facility] [address] [id number] [place] [address] Jun, [facility] [place] [facility] [address] [id number] [place] [address] Jun, [facility] [place] [facility] [address] [facility] [id number] [address] Jun, [facility] [place] [facility] [address] [id number] [address] Jun, [facility] [place] [facility] [address] [id number] [place] [address] 18 May, 2012 [facility] [place] [facility] [address] [id number] [place] [address] 18 May, 2012 [facility] [place] [facility] [address] [id number] [place] [address] 16 May, 2012 [facility] [place] [facility] [address] [id number] [place] [address] 16 May, 2012 [facility] [place] [facility] [address] [id number] [place] [address] 14 May, 2013 [facility] [place] [facility] [address] [id number] [place] [address] 14 May, 2013 [facility] [place] [facility] [address] [id number] [place] [address] 04 May, 2013 [facility] [place] [facility] [address] [id number] [place] [address] 04 Apr, 2013 [facility] [place] [facility] [address] [id number] [place] [address] Mar, [facility] [place] [facility] [address] [id number] [place] [address] Mar, [facility] [place] [facility] [address] [id number] [place] [address] Mar, [facility] [place] [facility] [address] [id number] [place] [address] Mar, [facility] [place] [facility] [address] [id number] [place] [address] Feb, [facility] [place] [facility] [address] [id number] [place] [address] Feb, [facility] [place] [facility] [address] [id number] [place] [address] Feb, [facility] [place] [facility] [address] [id number] [place] [address] Feb, [facility] [address] [facility] [id number] [address] Feb, [facility] [address] [facility] [id number] [place] [address] Feb, [facility] [address] [facility] [id number] [address] Jan, [facility] [id number] [address] Jan, [facility] [address] [facility] [id number] [address] Jan, [facility] [address] [facility] [id number] [address] Jan, IMMUNIZATIONS No Known Immunizations SOCIAL HISTORY Never Assessed REASON FOR VISIT Repository Medication PLAN OF CARE VITAL SIGNS MEDICATIONS Medication Instructions Dosage Frequency Start Date End Date Duration Status Lisinopril 2.5 MG Orally Once a day 1 tablet 24h 30 days Active Atorvastatin Calcium 40 mg Orally Once a day 1 tablet 24h May, 30 days Active RESULTS No Results PROCEDURES No Known procedures INSTRUCTIONS MEDICATIONS ADMINISTERED No Known Medications MEDICAL (GENERAL) HISTORY Type Description Date Medical History 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
--- OUTSIDE RECORDS SUMMARY | 2019-02-01 09:17 | XMS REPORT ---
Author Author SJ ALY [facility] [address] Address [address] [place] [address] Care Team Providers Care Director Of Publications Name Role Phone SJ ALY Unavailable PROBLEMS Type Condition ICD9-CM Code LUH23-BP Code Onset Dates Condition Status SNOMED Code Problem Essential (primary) hypertension I10 Active 41071047 Problem Type 2 diabetes mellitus with hyperglycemia E11.65 Active 131957846943037 Problem Pure hyperglyceridemia E78.1 Active 830745501 Problem Chronic obstructive pulmonary disease, unspecified COPD type J44.9 Active 40319256 Problem Essential hypertension I10 Active 35112171 Problem Restless legs syndrome G25.81 Active 87766366 Problem Type 2 diabetes mellitus with diabetic neuropathy, unspecified E11.40 Active 9530534128505 Problem DM neuro manif type II E11.40 Active 100432589 Problem Fibromyalgia M79.7 Active 591109661 Problem Solitary pulmonary nodule 793.11 Active 527352444 Problem Unspecified hypertrophic and atrophic condition of skin 701.9 Active 863037097 Problem Hypomagnesemia 275.2 Active 078986038 Problem Diabetic neuropathy 250.60 Active 466577759 Problem Coronary atherosclerosis of unspecified type of vessel, [place] or graft 414.00 Active 855769161 Problem Type 2 diabetes mellitus without complication E11.9 Active 36066017 Problem Depressive disorder, not elsewhere classified 311 Active 94494838 Problem Cardiac murmur, unspecified R01.1 Active 911858681 ALLERGIES No Information ENCOUNTERS Encounter Location Date Diagnosis [facility] [address] [place] [address] Feb, [facility] [address] [place] [address] Feb, Essential (primary) hypertension I10 and Exposure to hepatitis C Z20.5 [facility] [place] [address] [place] [address] Jan, [facility] [place] [address] [place] [address] Jan, [facility] [place] [address] [place] [address] Jan, [facility] [place] [address] [place] [address] Jan, [facility] [place] [address] [place] [address] Jan, [facility] [place] [address] [place] [address] Jan, [facility] [place] [address] [place] [address] December, Essential (primary) hypertension I10 [facility] [place] [address] [place] [address] December, Restless legs syndrome G25.81 [facility] [place] [address] [place] [address] December, Restless legs syndrome G25.81 [facility] [place] [address] [place] [address] December, Restless legs syndrome G25.81 [facility] [place] [address] [place] [address] December, Restless legs syndrome G25.81 [facility] [place] [address] [place] [address] Nov, [facility] [place] [address] [place] [address] Nov, Type 2 diabetes mellitus with hyperglycemia E11.65 [facility] [address] [facility] [id number] [place] [address] Nov, Essential hypertension I10 [facility] [place] [address] [place] [address] Oct, Restless legs syndrome G25.81 [facility] [place] [address] [place] [address] Aug, Type 2 diabetes mellitus with hyperglycemia E11.65 ; Restless legs syndrome G25.81 ; Fibromyalgia M79.7 ; Essential hypertension I10 and Urinary urgency R39.15 [facility] [place] [address] [place] [address] 30 May, 2017 [facility] [place] [address] [place] [address] 16 May, 2017 Type 2 diabetes mellitus with hyperglycemia E11.65 [facility] [place] [address] [place] [address] 10 May, 2017 [facility] [place] [address] [place] [address] 19 Apr, 2017 Type 2 diabetes mellitus with hyperglycemia E11.65 [facility] [place] [address] [place] [address] 15 Apr, 2017 [facility] [place] [address] [place] [address] 11 Apr, 2017 Hospital discharge follow-up Z09 ; Cardiac murmur, unspecified R01.1 ; Tobacco abuse Z72.0 and Chronic obstructive pulmonary disease, unspecified COPD type J44.9 [facility] [place] [address] [place] [address] Mar, Type 2 diabetes mellitus with hyperglycemia E11.65 [facility] [place] [address] [place] [address] Feb, Type 2 diabetes mellitus with hyperglycemia E11.65 and Essential hypertension I10 [facility] [place] [address] [place] [address] Feb, Restless legs syndrome G25.81 ; Type 2 diabetes mellitus with hyperglycemia E11.65 ; Essential hypertension I10 and Right upper quadrant pain R10.11 [facility] [place] [address] [place] [address] Feb, [facility] [place] [address] [place] [address] Feb, [facility] [place] [address] [place] [address] Jan, Type 2 diabetes mellitus with hyperglycemia E11.65 and Right sided abdominal pain R10.9 [facility] [place] [address] [place] [address] Jan, [facility] [place] [address] [place] [address] Jan, Nausea R11.0 ; Essential hypertension I10 and Dizziness R42 [facility] [place] [address] [place] [address] Jan, [facility] [place] [address] [place] [address] Nov, [facility] [place] [address] [place] [address] Nov, [facility] [place] [address] [place] [address] Oct, [facility] [place] [address] [place] [address] Oct, [facility] [address] [address] Oct, [facility] [address] [address] Sep, [facility] [address] [facility] [id number] [place] [address] 17 Sep, 2016 Ganglion of tendon M67.40 and DM neuro manif type II E11.40 [facility] [place] [address] [place] [address] Aug, Pure hyperglyceridemia E78.1 [facility] [address] [address] Aug, [facility] [address] [address] Aug, [facility] [address] [address] Aug, [facility] [address] [address] Aug, Fibromyalgia M79.7 [facility] [address] [address] Aug, [facility] [place] [address] Aug, Fibromyalgia M79.7 [facility] [address] [address] Aug, Fibromyalgia M79.7 ; Mass of right foot R22.41 and Type 2 diabetes mellitus with hyperglycemia E11.65 [facility] [place] [address] [place] [address] Jun, [facility] [place] [address] [place] [address] Jun, Furuncle L02.92 and Methicillin resistant Staph aureus culture positive Z22.322 [facility] [address] [address] Jun, Furuncle L02.92 ; Cellulitis of other specified site L03.818 and Methicillin resistant Staph aureus culture positive Z22.322 [facility] [place] [address] [place] [address] Jun, [facility] [place] [address] [place] [address] Jun, Furuncle L02.92 and Cellulitis of other specified site L03.818 [facility] [place] [address] [place] [address] May, Pure hyperglyceridemia E78.1 ; Abscess L02.91 ; Restless legs syndrome G25.81 and Type 2 diabetes mellitus with hyperglycemia E11.65 [facility] [place] [address] [place] [address] May, [facility] [place] [address] [place] [address] May, [facility] [place] [address] [place] [address] May, [facility] [address] [address] Apr, [facility] [address] [address] Mar, Well woman exam Z01.419 ; Encounter for screening mammogram for breast cancer Z12.31 and History of cervical cancer Z85.41 [facility] [address] [address] Mar, Insect bite, multiple W57.XXXA ; Type 2 diabetes mellitus with diabetic neuropathy, unspecified E11.40 ; Essential (primary) hypertension I10 ; DM neuro manif type II E11.40 and Restless legs syndrome G25.81 [facility] [address] Feb, [facility] [address] [address] Feb, [facility] [address] [address] Feb, [facility] [address] [address] Jan, [facility] [address] [address] Jan, [facility] [address] [address] Jan, Abscess L02.91 [facility] [address] [address] December, DM neuro manif type II E11.40 ; Pure hyperglyceridemia E78.1 ; Essential (primary) hypertension I10 and Type 2 diabetes mellitus without complication E11.9 [facility] [address] [address] Oct, [facility] [place] [address] [place] [address] Sep, [facility] [place] [address] [place] [address] Sep, [facility] [place] [address] [place] [address] Sep, [facility] [place] [address] [place] [address] Sep, Type 2 diabetes mellitus without complication E11.9 ; Pure hyperglyceridemia E78.1 ; Cardiac murmur, unspecified R01.1 and Essential (primary) hypertension I10 [facility] [place] [address] [place] [address] Aug, [facility] [place] [address] [place] [address] Jul, [facility] [place] [address] [place] [address] Jul, [facility] [place] [address] [place] [address] Jun, [facility] [place] [address] [place] [address] Jun, [facility] [place] [address] [place] [address] May, [facility] [place] [address] [place] [address] May, [facility] [place] [address] [place] [address] May, [facility] [place] [address] [place] [address] May, [facility] [place] [address] [place] [address] May, [facility] [place] [address] [place] [address] May, [facility] [place] [address] [place] [address] 29 Apr, 2015 Onychomycosis 110.1 [facility] [place] [address] [place] [address] 15 Apr, 2015 [facility] [place] [address] [place] [address] 14 Apr, 2015 Nail dystrophy 703.8 [facility] [place] [address] [place] [address] 08 Apr, 2015 Ingrown nail 703.[address] [address] Apr, Ingrown nail 703.[address] [address] Mar, [address] [address] Mar, Diabetic neuropathy 250.60 ; Fibromyalgia 729.1 and Lumbago 724.[address] [address] Mar, [address] [address] Jan, Diabetes mellitus without mention of complication, type II or unspecified type, uncontrolled 250.02 and Hypomagnesemia 275.[address] [address] Jan, [address] [address] Jan, Coronary atherosclerosis of unspecified type of vessel, [place] or graft 414.00 ; Essential hypertension, benign 401.1 ; Other and unspecified hyperlipidemia 272.4 ; Diabetes mellitus without mention of complication, type II or unspecified type, uncontrolled 250.02 ; Depressive disorder, not elsewhere classified 311 and Restless legs syndrome [RLS] 333.[address] [address] Jan, [address] [address] December, Sciatica 724.3 ; Muscle spasm 728.85 ; UTI (urinary tract infection) 599.0 and Dysuria 788.[address] [address] December, [address] [address] December, Scabies 133.0 and Leg pain 729.5 [facility] [id number] [address] Nov, [facility] [id number], [place] [address] Nov, [address] [place] [address] Aug, [facility] [place] [facility] [id number] [address] Aug, [facility] [place] [address] [place] [address] Jul, [facility] [place] [facility] [id number], [place] [address] Jul, [facility] [place] [address] [place] [address] Jul, [facility] [place] [facility] [id number] [place] [address] Jul, [facility] [place] [address] [place] [address] Jul, [facility] [place] [facility] [id number] [place] [address] Jul, [facility] [place] [address] [place] [address] Jun, [facility] [place] [facility] [id number], [place] [address] Jun, [facility] [place] [address] [place] [address] Jun, [facility] [place] [facility] [id number], [place] [address] Jun, [facility] [place] [address] [place] [address] May, [facility] [place] [facility] [id number], [place] [address] May, [facility] [place] [facility] [id number], [place] [address] Apr, [facility] [place] [facility] [id number], [place] [address] Apr, [facility] [place] [address] [place] [address] Apr, [facility] [place] [facility] [id number], [place] [address] Apr, [facility] [place] [address] [place] [address] Apr, 2013 [facility] [place] [facility] [address] [facility] [id number] [address] Apr, 2013 [facility] [place] [facility] [address] [facility] [id number] [place] [address] Apr, 2013 [facility] [place] [address] [place] [address] Apr, 2013 [facility] [place] [facility] [address] [facility] [id number] [address] Apr, 2013 [facility] [place] [address] [place] [address] Apr, 2013 [facility] [place] [facility] [id number] [place] [address] Apr, 2013 [facility] [place] [facility] [id number] [place] [address] Apr, [facility] [place] [address] [place] [address] 08 Apr, 2013 [facility] [place] [address] [place] [address] 08 Apr, 2013 [facility] [place] [facility] [id number], [place] [address] Apr, 2013 [facility] [place] [facility] [id number], [place] [address] Apr, [facility] [place] [address] [place] [address] Mar, [facility] [place] [facility] [id number], [place] [address] Mar, [facility] [place] [address] [place] [address] Mar, [facility] [place] [facility] [address] [facility] [id number] [address] Mar, [facility] [place] [address] [place] [address] Feb, [facility] [place] [facility] [id number], [place] [address] Feb, [facility] [place] [address] [place] [address] December, [facility] [place] [facility] [id number], [place] [address] December, [facility] [place] [address] [place] [address] December, [facility] [place] [facility] [id number], [place] [address] December, [facility] [place] [address] [place] [address] Nov, [facility] [place] [facility] [id number], [place] [address] Nov, [facility] [place] [address] [place] [address] Nov, [facility] [place] [facility] [id number], [place] [address] Nov, [facility] [place] [address] [place] [address] Nov, [facility] [place] [facility] [id number], [place] [address] Nov, [facility] [place] [facility] [address], [place] [address] Oct, [facility] [place] [facility] [id number], [place] [address] Oct, [facility] [place] [facility] [id number], [place] [address] Aug, [facility] [place] [facility] [address] [facility] [id number] [address] Aug, [facility] [place] [address] [place] [address] Aug, [facility] [place] [facility] [address] [facility] [id number], [place] [address] Aug, [facility] [place] [facility] [id number], [place] [address] Aug, [facility] [place] [facility] [address] [facility] [id number] [address] Aug, [facility] [place] [address] [place] [address] Jul, [facility] [address] [facility] [id number] [address] Jul, [facility] [address] [facility] [id number] [address] Jul, [facility] [place] [facility] [address] [facility] [id number] [address] Jul, [facility] [address] [facility] [id number] [place] [address], [place] [address] Jun, [facility] [place] [facility] [address] [facility] [id number] [address] Jun, [facility] [address] [facility] [id number] [address] Jun, [facility] [place] [facility] [address] [facility] [id number] [address] Jun, [facility] [address] [facility] [id number] [address] Jun, [facility] [place] [facility] [address] [facility] [id number][place] [address] Jun, [facility] [place] [facility] [address] [facility] [id number], [place] [address] Jun, [facility] [place] [facility] [address] [facility] [id number], [place] [address] Jun, [facility] [place] [facility] [address] [facility] [id number] [address] Jun, [facility] [place] [facility] [address] [facility] [id number], [place] [address] May, [facility] [place] [facility] [address] [facility] [id number] [address] May, [facility] [place] [facility] [address] [id number] [place] [address] 16 May, 2013 [facility] [place] [facility] [address] [id number] [place] [address] 16 May, 2013 [facility] [place] [facility] [address] [id number] [place] [address] 14 May, 2013 [facility] [place] [facility] [address] [id number] [place] [address] 14 May, 2013 [facility] [place] [facility] [address] [id number] [place] [address] 04 May, 2013 [facility] [place] [facility] [address] [id number] [place] [address] Apr, [facility] [place] [facility] [address] [id number] [place] [address] Mar, [facility] [place] [facility] [address] [id number] [place] [address] Mar, [facility] [place] [facility] [address] [id number] [place] [address] Mar, [facility] [place] [facility] [address] [id number] [place] [address] Mar, [facility] [place] [facility] [address] [id number] [place] [address] Feb, [facility] [place] [facility] [address] [id number] [place] [address] 15 Feb, 2013 [facility] [place] [facility] [address] [id number] [place] [address] Feb, [facility] [place] [facility] [address] [id number] [place] [address] Feb, [facility] [place] [facility] [address] [id number] [place] [address] 05 Feb, 2013 [facility] [place] [facility] [address] [id number] [place] [address] Feb, [facility] [address] [facility] [id number] [place] [address] Jan, [facility] [address] [facility] [id number], [place] [address] Jan, [facility] [address] [facility] [id number] [place] [address] Jan, [facility] [address] [facility] [id number], [place] [address] Jan, IMMUNIZATIONS No Known Immunizations SOCIAL HISTORY Never Assessed REASON FOR VISIT Refill request PLAN OF CARE VITAL SIGNS MEDICATIONS Medication Instructions Dosage Frequency Start Date End Date Duration Status Ropinirole HCl 0.5 MG Orally HS 3 tablets Jun, 30 days Active Atorvastatin Calcium 40 mg Orally Once a day 1 tablet 24h May, 30 days Active RESULTS No Results PROCEDURES No Known procedures INSTRUCTIONS MEDICATIONS ADMINISTERED No Known Medications MEDICAL (GENERAL) HISTORY Type Description Date Medical History Atherosclerotic heart disease of [place] coronary artery without angina pectoris Medical History [...]
[2019-02-01] MEDS ORDERED: LIDOCAINE 1% INJ 20 ML 20 ML VIAL ONE (09:18)
--- OUTSIDE RECORDS SUMMARY | 2019-02-01 09:18 | XMS REPORT ---
Author Author SJ [facility] [place] Address [address] [place] [address] Care Team Providers Care Content Management Consultant Name Role Phone ALY, SJ Unavailable PROBLEMS Type Condition ICD9-CM Code NZU30-SL Code Onset Dates Condition Status SNOMED Code Problem Essential (primary) hypertension I10 Active 93253574 Problem Type 2 diabetes mellitus with hyperglycemia E11.65 Active 003858941766957 Problem Pure hyperglyceridemia E78.1 Active 286543770 Problem Chronic obstructive pulmonary disease, unspecified COPD type J44.9 Active 76052689 Problem Essential hypertension I10 Active 99907799 Problem Restless legs syndrome G25.81 Active 05964134 Problem Type 2 diabetes mellitus with diabetic neuropathy, unspecified E11.40 Active 1759001057380 Problem DM neuro manif type II E11.40 Active 616512148 Problem Fibromyalgia M79.7 Active 415179727 Problem Solitary pulmonary nodule 793.11 Active 248988370 Problem Unspecified hypertrophic and atrophic condition of skin 701.9 Active 787815085 Problem Hypomagnesemia 275.2 Active 307718118 Problem Diabetic neuropathy 250.60 Active 155594393 Problem Coronary atherosclerosis of unspecified type of vessel, [place] or graft 414.00 Active 970214988 Problem Type 2 diabetes mellitus without complication E11.9 Active 51298964 Problem Depressive disorder, not elsewhere classified 311 Active 27015014 Problem Cardiac murmur, unspecified R01.1 Active 855970892 ALLERGIES No Information ENCOUNTERS Encounter Location Date Diagnosis [facility] [place] [address] [id number] [place], [place] [id number] Feb, [facility] [place] [address] [id number] [place] [id number] December, Restless legs syndrome G25.81 [facility] [place] [address] [facility] [address] [id number] [place] [address] December, Restless legs syndrome G25.81 [facility] [place] [address] [id number] [place] [id number] Nov, [facility] [place] [address] [facility] [facility] [facility] [address] [id number] [place] [id number] Nov, Type 2 diabetes mellitus with hyperglycemia E11.65 [facility] [address] [facility] [id number] [place] [address] Nov, Essential hypertension I10 [facility] [place] [address] [facility] [facility] [address] [id number] [place] [id number] Oct, Restless legs syndrome G25.81 [facility] [place] [address] [place] [address] [address] [id number] [place] [id number] Aug, Type 2 diabetes mellitus with hyperglycemia E11.65 ; Restless legs syndrome G25.81 ; Fibromyalgia M79.7 ; Essential hypertension I10 and Urinary urgency R39.[address] [facility] [place] [address] [facility] [address] [id number] [place] [id number] May, [facility] [place] [address] [place] [address] [address] [id number] [place] [id number] May, Type 2 diabetes mellitus with hyperglycemia E11.[address] [facility] [place] [address] [facility] [address] [id number] [place] [id number] May, [facility] [place] [address] [facility] [address] [id number] [place] [address] Apr, Type 2 diabetes mellitus with hyperglycemia E11.[address] [facility] [place] [address] [facility] [address] [id number] [place] [address] Apr, [facility] [place] [address] [place] [address] [address] [id number] [place] [id number] Apr, Hospital discharge follow-up Z09 ; Cardiac murmur, unspecified R01.1 ; Tobacco abuse Z72.0 and Chronic obstructive pulmonary disease, unspecified COPD type J44.[address] [facility] [place] [address] [facility] [address] [id number] [place] [id number] Mar, Type 2 diabetes mellitus with hyperglycemia E11.[address] [facility] [place] [address] [facility] [address] [id number] [place] [id number] Feb, Type 2 diabetes mellitus with hyperglycemia E11.65 and Essential hypertension I10 [facility] [place] [address] [facility] [address] [id number] [place] [id number] Feb, Restless legs syndrome G25.81 ; Type 2 diabetes mellitus with hyperglycemia E11.65 ; Essential hypertension I10 and Right upper quadrant pain R10.[address] [facility] [place] [address] [facility] [address] [id number] [place] [id number] Feb, [facility] [place] [address] [facility] [address] [id number] [place] [address] Feb, [facility] [place] [address] [facility] [address] [id number] [place] [id number] Jan, Type 2 diabetes mellitus with hyperglycemia E11.65 and Right sided abdominal pain R10.[address] [facility] [place] [address] [facility] [address] [id number] [place] [id number] Jan, [facility] [place] [address] [facility] [address] [id number] [place] [address] Jan, Nausea R11.0 ; Essential hypertension I10 and Dizziness R42 [facility] [place] [address] [facility] [address] [id number] [place] [id number] Jan, [facility] [place] [address] [facility] [address] [id number] [place] [id number] Nov, [facility] [place] [address] [facility] [address] [id number] [place] [id number] Nov, [facility] [place] [address] [facility] [address] [id number] [place] 6[address]69[address] Oct, [facility] [place] [address] [facility] [address] [id number] [place] [id number] Oct, [facility] [place] [address] [facility] [address] [id number] [place] [id number] Oct, [facility] [place] [address] [facility] [address] [id number] [place] [id number] Sep, [facility] [address] [facility] [id number] [place] [address] Sep, Ganglion of tendon M67.40 and DM neuro manif type II E11.40 [facility] [place] [address] [id number] [place] [address] Aug, Pure hyperglyceridemia E78.1 [facility] [place] [address] [id number] [place] 110509618 Aug, [facility] [place] [address] [id number] [place] 040[place]1946 Aug, [facility] [place] [address] [id number] [place] [address]270 Aug, [facility] [place] [address] [id number] [place] 80[address] Aug, Fibromyalgia M79.7 [facility] [place] [address] [id number] [place] [id number] Aug, [facility] [place] [address] [id number] [place] 89[address]22746 Aug, Fibromyalgia M79.7 [facility] [place] [address] [id number] [place] 786[address] Aug, Fibromyalgia M79.7 ; Mass of right foot R22.41 and Type 2 diabetes mellitus with hyperglycemia E11.65 [facility] [place] [address] [id number] [place] 340[address] Jun, [facility] [place] [address] [id number] [place] 7[address] Jun, Furuncle L02.92 and Methicillin resistant Staph aureus culture positive Z22.322 [facility] [place] [address] [id number] [place] 5749[address]119 Jun, Furuncle L02.92 ; Cellulitis of other specified site L03.818 and Methicillin resistant Staph aureus culture positive Z22.322 [facility] [place] [address] [id number] [place] 744262361 Jun, [facility] [place] [address] [id number] [place] 584364399 Jun, Furuncle L02.92 and Cellulitis of other specified site L03.818 [facility] [place] [address] [id number] [place] 193058785 May, Pure hyperglyceridemia E78.1 ; Abscess L02.91 ; Restless legs syndrome G25.81 and Type 2 diabetes mellitus with hyperglycemia E11.[address] [facility] [place] [address] [facility] [address] [id number] [place] 902879751 May, [facility] [place] [address] [facility] [address] [id number] [place] 395873897 May, [facility] [place] [address] [facility] [address] [id number] [place] [id number] May, [facility] [place] [address] [facility] [address] [id number] [place] 895229815 Apr, [facility] [place] [address] [place] [address] [address] [id number] [place] 544359413 Mar, Well woman exam Z01.419 ; Encounter for screening mammogram for breast cancer Z12.31 and History of cervical cancer Z85.41 [facility] [place] [address] [place] [address] [address] [id number] [place] 1570[address]173 Mar, Insect bite, multiple W57.XXXA ; Type 2 diabetes mellitus with diabetic neuropathy, unspecified E11.40 ; Essential (primary) hypertension I10 ; DM neuro manif type II E11.40 and Restless legs syndrome G25.[address] [facility] [place] [address] [facility] [address] [id number] [place] 396116941 Feb, [facility] [place] [address] [facility] [address] [id number] [place] [id number] Feb, [facility] [place] [address] [facility] [address] [id number] [place] [id number] Feb, [facility] [place] [address] [facility] [address] [id number] [place] 545334499 Jan, [facility] [place] [address] [facility] [address] [id number] [place] [id number] Jan, [facility] [place] [address] [facility] [address] [id number] [place] 151169557 Jan, Abscess L02.[address] [facility] [place] [address] [facility] [address] [id number] [place] 160673939 December, DM neuro manif type II E11.40 ; Pure hyperglyceridemia E78.1 ; Essential (primary) hypertension I10 and Type 2 diabetes mellitus without complication E11.[address] [facility] [place] [address] [facility] [address] [id number] [place] 830085485 Oct, [facility] [place] [address] [facility] [address] [id number] [place] 424062743 Sep, [facility] [place] [address] [facility] [address] [id number] [place] [id number] Sep, [facility] [place] [address] [facility] [address] [id number] [place] 125534774 Sep, [facility] [place] [address] [facility] [address] [id number] [place] 345787264 Sep, Type 2 diabetes mellitus without complication E11.9 ; Pure hyperglyceridemia E78.1 ; Cardiac murmur, unspecified R01.1 and Essential (primary) hypertension I10 [facility] [place] [address] [facility] [address] [id number] [place] 412686421 Aug, [facility] [place] [address] [facility] [address] [id number] [place] 305441484 Jul, [facility] [place] [address] [facility] [address] [id number] [place] 648160199 Jul, [facility] [place] [address] [facility] [address] [id number] [place] [id number] Jun, [facility] [place] [address] [facility] [address] [id number] [place] [id number] Jun, [facility] [place] [address] [facility] [address] [id number] [place] [id number] May, [facility] [place] [address] [facility] [address] [id number] [place] [id number] May, [facility] [place] [address] [facility] [address] [id number] [place] [id number] May, [facility] [place] [address] [facility] [address] [id number] [place] 024153640 May, [facility] [place] [address] [facility] [address] [id number] [place] 080453237 May, [facility] [place] [address] [place] [address] C [id number] [place] [id number] May, [facility] [place] [address] [place] [address] [address] [id number] [place] [id number] Apr, Onychomycosis 110.1 [facility] [place] [address] [place] [address] [address] [id number] [place] [id number] Apr, [facility] [place] [address] [place] [address] [address] [id number] [place] [id number] 14 Apr, 2015 Nail dystrophy 703.8 [facility] [place] [address] [place] [address] C [id number] [place] 757901330 08 Apr, 2015 Ingrown nail 703.0 [facility] [place] [address] [place] [address] C [id number] [place] [id number] Apr, Ingrown nail 703.0 [facility] [place] [address] [place] [address] C [id number] [place] [id number] Mar, [facility] [place] [address] [place] [address] C [id number] [place] 227393968 Mar, Diabetic neuropathy 250.60 ; Fibromyalgia 729.1 and Lumbago 724.2 [facility] [place] [address] [place] [address] C [id number] [place] [id number] Mar, [facility] [place] [address] [place] [address] C [id number] [place] [id number] Jan, Diabetes mellitus without mention of complication, type II or unspecified type, uncontrolled 250.02 and Hypomagnesemia 275.2 [facility] [place] [address] [place] [address] C [id number] [place] [id number] Jan, [facility] [place] [address] [place] [address] [address] [id number] [place] [id number] Jan, Coronary atherosclerosis of unspecified type of vessel, [place] or graft 414.00 ; Essential hypertension, benign 401.1 ; Other and unspecified hyperlipidemia 272.4 ; Diabetes mellitus without mention of complication, type II or unspecified type, uncontrolled 250.02 ; Depressive disorder, not elsewhere classified 311 and Restless legs syndrome [RLS] 333.[address] [facility] [place] [address] [facility] [address] [id number] [place] [id number] Jan, [facility] [place] [address] [facility] [address] [id number] [place] 958921774 December, Sciatica 724.3 ; Muscle spasm 728.85 ; UTI (urinary tract infection) 599.0 and Dysuria 788.1 [facility] [place] [address] [facility] [address] [id number] [place] [id number] December, [facility] [place] [address] [facility] [address] [id number] [place] [id number] December, Scabies 133.0 and Leg pain 729.5 [facility] [address] [facility] [id number] [place] [address] Nov, [facility] [address] [facility] [id number] [place] [address] Nov, [facility] [place] [address] [facility] [address] [id number] [place] [id number] Aug, [facility] [address] [facility] [id number] [place] [address] Aug, [facility] [place] [address] [facility] [address] [id number] [place] [id number] Jul, [facility] [address] [facility] [id number] [place] [address] Jul, [facility] [place] [address] [facility] [address] [id number] [place] [id number] Jul, [facility] [address] [facility] [id number] [place] [address] Jul, [facility] [place] [address] [facility] [address] [id number] [place] [id number] Jul, [facility] [address] [facility] [id number] [place] [address] Jul, [facility] [place] [address] [facility] [address] [id number] [place] [id number] Jun, [facility] [place] [facility] [address] [id number] [place] [address] Jun, [facility] [place] [address] [id number] [place] [id number] Jun, [facility] [place] [facility] [address] [facility] [id number] [facility] [address] Jun, [facility] [place] [address] [id number] [place] [id number] May, [facility] [address] [id number] [facility] [place] [address] May, [facility] [place] [facility] [address] [id number] [place] [address] Apr, [facility] [address] [facility] [id number] [place] [address] Apr, [facility] [place] [address] [facility] [address] [id number] [place] [id number] Apr, [facility] [place] [facility] [address] [id number] [facility] [place] [address] Apr, [facility] [place] [address] [facility] [address] [id number] [place] [id number] Apr, [facility] [address] [facility] [id number] [place] [address] Apr, [facility] [place] [facility] [address] [id number] [facility] [place] [address] Apr, [facility] [place] [address] [facility] [address] [id number] [place] 038512995 Apr, [facility] [place] [facility] [address] [id number] [facility] [address] Apr, [facility] [place] [address] [facility] [address] [id number] [place] 428940273 Apr, [facility] [place] [facility] [address] [facility] [id number] [facility] [address] Apr, [facility] [place] [facility] [address] [id number] [place] [address] Apr, [facility] [place] [address] [id number] [place] 450886210 Apr, [facility] [place] [address] [id number] [place] 740499322 Apr, [facility] [place] [facility] [address] [id number] [place] [address] Apr, [facility] [place] [facility] [address] [id number] [place] [address] Apr, [facility] [place] [address] [id number] [place] 110979652 Mar, [facility] [place] [facility] [address] [id number] [place] [address] Mar, [facility] [place] [address] [facility] [address] [id number] [place] 979041600 Mar, [facility] [address] [id number] [place] [address] Mar, [facility] [place] [address] [id number] [place] 831191563 Feb, [facility] [place] [facility] [address] [id number] [place] [address] Feb, [facility] [place] [address] [facility] [address] [id number] [place] 585467236 December, [facility] [place] [facility] [address] [id number] [place] [address] December, [facility] [place] [address] [id number] [place] 656753344 December, [facility] [place] [facility] [address] [id number] [place] [address] December, [facility] [place] [address] [facility] [address] [id number] [place] 190062984 Nov, [facility] [place] [facility] [address] [id number] [place] [address] Nov, [facility] [place] [address] [id number] [place] 748864274 Nov, [facility] [place] [facility] [address] [id number] [place] [address] Nov, [facility] [place] [address] [facility] [address] [id number] [place] [id number] Nov, [facility] [address] [id number] [address] Nov, [facility] [place] [facility] [address] [id number] [place] [address] Oct, [facility] [place] [facility] [address] [id number][place] [address] Oct, [facility] [place] [facility] [address] [id number][place] [address] Aug, [facility] [address] [id number] [place] [address] Aug, [facility] [place] [address] [facility] [address] [id number] [place] [id number] Aug, [facility] [address] [id number][place] [address] Aug, [facility] [place] [facility] [address] [id number][place] [address] Aug, [facility] [place] [facility] [address] [id number][place] [address] Aug, [facility] [place] [address] [id number] [place] [id number] Jul, [facility] [place] [facility] [address] [id number][place] [address] Jul, [facility] [place] [facility] [address] [id number][place] [address] Jul, [facility] [place] [facility] [address] [facility] [id number] [place] [address] 12 Jul, 2013 [facility] [address] [id number] [place] [address] 19 Jun, 2013 [facility] [place] [facility] [address] [id number] [place] [address] Jun, [facility] [address] [id number] [place] [address] Jun, [facility] [place] [facility] [address] [id number] [place] [address] 08 Jun, 2013 [facility] [address] [id number] [place] [address] 08 Jun, 2013 [facility] [place] [facility] [address] [id number] [place] [address] 07 Jun, 2013 [facility] [address] [id number] [place] [address] 07 Jun, 2013 [facility] [address] [id number] [place] [address] 06 Jun, 2013 [facility] [place] [facility] [address] [id number] [place] [address] 06 Jun, 2013 [facility] [address] [facility] [id number] [place] [address] 18 May, 2013 [facility] [place] [facility] [address] [id number] [place] [address] 18 May, 2013 [facility] [place] [facility] [address] [id number][place] [address] 16 May, 2013 [facility] [place] [facility] [address] [id number] [place] [address] 16 May, 2013 [facility] [place] [facility] [address] [id number] [place] [address] 14 May, 2013 [facility] [place] [facility] [address] [id number] [place] [address] 14 May, 2013 [facility] [place] [facility] [address] [id number] [place] [address] 04 May, 2013 [facility] [place] [facility] [address] [id number] [place] [address] 04 Apr, 2013 [facility] [place] [facility] [address] [id number] [place] [address] Mar, [facility] [place] [facility] [address] [id number] [place] [address] Mar, [facility] [place] [facility] [address] [id number] [place] [address] Mar, [facility] [place] [facility] [address] [id number] [place] [address] Mar, [facility] [place] [facility] [address] [id number] [place] [address] 16 Feb, 2013 [facility] [place] [facility] [address] [id number] [place] [address] 15 Feb, 2013 [facility] [place] [facility] [address] [id number] [place] [address] Feb, [facility] [place] [facility] [address] [id number] [place] [address] Feb, [facility] [place] [facility] [address] [id number] [place] [address] Feb, [facility] [place] [facility] [address] [id number] [address] Feb, [facility] [place] [facility] [address] [id number] [place] [address] Jan, [facility] [place] [facility] [address] [id number] [place] [address] Jan, [facility] [place] [facility] [address] [id number] [place] [address] Jan, [facility] [place] [facility] [address] [id number] [place] [address] Jan, IMMUNIZATIONS No Known Immunizations SOCIAL HISTORY Never Assessed REASON FOR VISIT repository meds PLAN OF CARE VITAL SIGNS MEDICATIONS Medication Instructions Dosage Frequency Start Date End Date Duration Status MetFORMIN HCl ER 500 mg Orally 2 times a day 1 tablet with evening meal 12h 28 Jan, 2017 30 day(s) Active Protonix 40 MG Orally Once a day 1 packet 24h 20 Apr, 2017 30 day(s) Active RESULTS No Results PROCEDURES No Known procedures INSTRUCTIONS MEDICATIONS ADMINISTERED No Known Medications MEDICAL (GENERAL) HISTORY Type Description Date Medical History Atherosclerotic heart disease of [place] coronary artery without angina pectoris Medical History Hidradenitis suppurativa Medical History Pure hyperglyceridemia Medical History Essential (primary) hypertension Medical History Type 2 diabetes mellitus with hyperglycemia Medical History Restless legs syndrome Medical History Major depressive disorder, single episode, unspecified Medical History Cardiac murmur, unspecified Medical History DM neuro manif type II Surgical History hysterectomy Surgical History appendectomy Surgical History heart cath Hospitalization History Child Hospitalization History Surgery Hospitalization History IBS x 3months Hospitalization History sepsis 04/2017
--- OUTSIDE RECORDS SUMMARY | 2019-02-01 09:19 | XMS REPORT ---
Author Author SJ [facility]Y [facility] [place] Address [address] [place] [address] Care Team Providers Care Pocketbook Maker Name Role Phone ALY, SJ Unavailable PROBLEMS Type Condition ICD9-CM Code BXT68-AV Code Onset Dates Condition Status SNOMED Code Problem Essential (primary) hypertension I10 Active 48044090 Problem Type 2 diabetes mellitus with hyperglycemia E11.65 Active 342540052867082 Problem Pure hyperglyceridemia E78.1 Active 420415566 Problem Chronic obstructive pulmonary disease, unspecified COPD type J44.9 Active 20338403 Problem Essential hypertension I10 Active 35794790 Problem Restless legs syndrome G25.81 Active 86832641 Problem Type 2 diabetes mellitus with diabetic neuropathy, unspecified E11.40 Active 6642598591806 Problem DM neuro manif type II E11.40 Active 241845014 Problem Fibromyalgia M79.7 Active 856556990 Problem Solitary pulmonary nodule 793.11 Active 761924473 Problem Unspecified hypertrophic and atrophic condition of skin 701.9 Active 125843199 Problem Hypomagnesemia 275.2 Active 720623098 Problem Diabetic neuropathy 250.60 Active 862206816 Problem Coronary atherosclerosis of unspecified type of vessel, [place] or graft 414.00 Active 757271461 Problem Type 2 diabetes mellitus without complication E11.9 Active 71450500 Problem Depressive disorder, not elsewhere classified 311 Active 65858588 Problem Cardiac murmur, unspecified R01.1 Active 960757378 ALLERGIES No Information ENCOUNTERS Encounter Location Date Diagnosis [facility] [place] [address] [id number] [place] [address] Feb, [facility] [place] [address] [id number] [place] [address] December, Restless legs syndrome G25.81 [facility] [place] [address] [facility] [address] [id number] [place] [address] December, Restless legs syndrome G25.81 [facility] [place] [address] [id number] [place] [id number] Nov, [facility] [place] [address] [facility] [id number] [place] [address] Nov, Type 2 diabetes mellitus with hyperglycemia E11.65 [facility] [address] [facility] [id number] [place] [address] Nov, Essential hypertension I10 [facility] [place] [address] [facility] [address] [id number] [place] 9[address]6727[address] Oct, Restless legs syndrome G25.81 [facility] [place] [address] [place] [address] [address] [id number] [place] [address]32[address] Aug, Type 2 diabetes mellitus with hyperglycemia E11.65 ; Restless legs syndrome G25.81 ; Fibromyalgia M79.7 ; Essential hypertension I10 and Urinary urgency R39.15 [facility] [place] [address] [facility] [address] [id number] [place] [id number] May, [facility] [place] [address] [place] [address] [address] [id number] [place] 159484437 May, Type 2 diabetes mellitus with hyperglycemia E11.65 [facility] [place] [address] [facility] [address] [id number] [place] [id number] May, [facility] [place] [address] [facility] [address] [id number] [place] [address] Apr, Type 2 diabetes mellitus with hyperglycemia E11.65 [facility] [place] [address] [facility] [address] [id number] [place] 50[address] Apr, [facility] [place] [address] [place] [address] [address] [id number] [place] [address]35 Apr, Hospital discharge follow-up Z09 ; Cardiac murmur, unspecified R01.1 ; Tobacco abuse Z72.0 and Chronic obstructive pulmonary disease, unspecified COPD type J44.9 [facility] [place] [address] [facility] [address] [id number] [place] [address]35[address] Mar, Type 2 diabetes mellitus with hyperglycemia E11.65 [facility] [place] [address] [facility] [address] [id number] [place] [address] Feb, Type 2 diabetes mellitus with hyperglycemia E11.65 and Essential hypertension I10 [facility] [place] [address] [facility] [address] [id number] [place] [address] Feb, Restless legs syndrome G25.81 ; Type 2 diabetes mellitus with hyperglycemia E11.65 ; Essential hypertension I10 and Right upper quadrant pain R10.11 [facility] [place] [address] [facility] [address] [id number] [place] [id number] Feb, [facility] [place] [address] [facility] [address] [id number] [place] [address] Feb, [facility] [place] [address] [facility] [address] [id number] [place] [address]87[address] Jan, Type 2 diabetes mellitus with hyperglycemia E11.65 and Right sided abdominal pain R10.9 [facility] [place] [address] [facility] [address] [id number] [place] 136561038 Jan, [facility] [place] [address] [facility] [address] [id number] [place] 131716256 Jan, Nausea R11.0 ; Essential hypertension I10 and Dizziness R42 [facility] [place] [address] [facility] [address] [id number] [place] [id number] Jan, [facility] [place] [address] [facility] [address] [id number] [place] [address] Nov, [facility] [place] [address] [facility] [address] [id number] [place] 198045850 Nov, [facility] [place] [address] [facility] [address] [id number] [place] [address]873301 Oct, [facility] [place] [address] [facility] [address] [id number] [place] 457122283 Oct, [facility] [place] [address] [facility] [address] [id number] [place] 924058002 Oct, [facility] [place] [address] [facility] [address] [id number] [place] [address] Sep, [facility] [address] [facility] [id number] [place] [address] Sep, Ganglion of tendon M67.40 and DM neuro manif type II E11.40 [facility] [place] [address] [id number] [place] [id number] Aug, Pure hyperglyceridemia E78.1 [facility] [place] [address] [id number] [place] 29[address]133 Aug, [facility] [place] [address] [id number] [place] 4[address]218 Aug, [facility] [place] [address] [id number] [place] [address] Aug, [facility] [place] [address] [id number] [place] 440454163 Aug, Fibromyalgia M79.7 [facility] [place] [address] [id number] [place] [address]27 Aug, [facility] [place] [address] [id number] [place] 9[address]07[address] Aug, Fibromyalgia M79.7 [facility] [place] [address] [id number] [place] [address]213[address]60 Aug, Fibromyalgia M79.7 ; Mass of right foot R22.41 and Type 2 diabetes mellitus with hyperglycemia E11.65 [facility] [place] [address] [id number] [place] [address] Jun, [facility] [place] [address] [id number] [place] [address]85 Jun, Furuncle L02.92 and Methicillin resistant Staph aureus culture positive Z22.322 [facility] [place] [address] [id number] [place] [address] Jun, Furuncle L02.92 ; Cellulitis of other specified site L03.818 and Methicillin resistant Staph aureus culture positive Z22.322 [facility] [place] [address] [id number] [place] 8765[address]89 Jun, [facility] [place] [address] [id number] [place] 79368[address]50 Jun, Furuncle L02.92 and Cellulitis of other specified site L03.818 [facility] [place] [address] [id number] [place] [address] May, Pure hyperglyceridemia E78.1 ; Abscess L02.91 ; Restless legs syndrome G25.81 and Type 2 diabetes mellitus with hyperglycemia E11.65 [facility] [place] [address] [facility] [address] [id number] [place] 695407222 May, [facility] [place] [address] [facility] [address] [id number] [place] [id number] May, [facility] [place] [address] [facility] [address] [id number] [place] 9005[address]808 May, [facility] [place] [address] [facility] [address] [id number] [place] 26[address]76 Apr, [facility] [place] [address] [place] [address] [address] [id number] [place] [id number] Mar, Well woman exam Z01.419 ; Encounter for screening mammogram for breast cancer Z12.31 and History of cervical cancer Z85.41 [facility] [place] [address] [place] [address] [address] [id number] [place] 522[address]456 Mar, Insect bite, multiple W57.XXXA ; Type 2 diabetes mellitus with diabetic neuropathy, unspecified E11.40 ; Essential (primary) hypertension I10 ; DM neuro manif type II E11.40 and Restless legs syndrome G25.81 [facility] [place] [address] [facility] [address] [id number] [place] [id number] Feb, [facility] [place] [address] [facility] [address] [id number] [place] 283757853 Feb, [facility] [place] [address] [facility] [address] [id number] [place] [id number] Feb, [facility] [place] [address] [facility] [address] [id number] [place] 638[address]4312 Jan, [facility] [place] [address] [facility] [address] [id number] [place] 75616500[address] Jan, [facility] [place] [address] [facility] [address] [id number] [place] 449821911 Jan, Abscess L02.91 [facility] [place] [address] [facility] [address] [id number] [place] 240011869 December, DM neuro manif type II E11.40 ; Pure hyperglyceridemia E78.1 ; Essential (primary) hypertension I10 and Type 2 diabetes mellitus without complication E11.9 [facility] [place] [address] [facility] [address] [id number] [place] 9763533[address] Oct, [facility] [place] [address] [facility] [address] [id number] [place] 609965547 Sep, [facility] [place] [address] [facility] [address] [id number] [place] 392[address]0945 Sep, [facility] [place] [address] [facility] [address] [id number] [place] 256435674 Sep, [facility] [place] [address] [facility] [address] [id number] [place] 872451487 Sep, Type 2 diabetes mellitus without complication E11.9 ; Pure hyperglyceridemia E78.1 ; Cardiac murmur, unspecified R01.1 and Essential (primary) hypertension I10 [facility] [place] [address] [facility] [address] [id number] [place] [id number] Aug, [facility] [place] [address] [facility] [address] [id number] [place] 975954715 Jul, [facility] [place] [address] [facility] [address] [id number] [place] 882253631 Jul, [facility] [place] [address] [facility] [address] [id number] [place] 571299258 Jun, [facility] [place] [address] [facility] [address] [id number] [place] 877883535 Jun, [facility] [place] [address] [facility] [address] [id number] [place] 059289968 May, [facility] [place] [address] [facility] [address] [id number] [place] 380757354 May, [facility] [place] [address] [facility] [address] [id number] [place] 607067400 May, [facility] [place] [address] [facility] [address] [id number] [place] 159180681 May, [facility] [place] [address] [facility] [address] [id number] [place] 322666042 May, [facility] [place] [address] [place] [address] C [id number] [place] 780896169 May, [facility] [place] [address] [place] [address] [address] [id number] [place] [id number] Apr, Onychomycosis 110.1 [facility] [place] [address] [place] [address] [address] [id number] [place] 837436239 Apr, [facility] [place] [address] [place] [address] [address] [id number] [place] 654392170 14 Apr, 2015 Nail dystrophy 703.8 [facility] [place] [address] [place] [address] C [id number] [place] 912868542 08 Apr, 2015 Ingrown nail 703.0 [facility] [place] [address] [place] [address] C [id number] [place] 171787580 Apr, Ingrown nail 703.0 [facility] [place] [address] [place] [address] C [id number] [place] 118729293 Mar, [facility] [place] [address] [place] [address] C [id number] [place] 002201216 Mar, Diabetic neuropathy 250.60 ; Fibromyalgia 729.1 and Lumbago 724.2 [facility] [place] [address] [place] [address] C [id number] [place] 025145843 Mar, [facility] [place] [address] [place] [address] C [id number] [place] 723306813 Jan, Diabetes mellitus without mention of complication, type II or unspecified type, uncontrolled 250.02 and Hypomagnesemia 275.2 [facility] [place] [address] [place] [address] C [id number] [place] 585288107 Jan, [facility] [place] [address] [place] [address] [address] [id number] [place] 173430679 Jan, Coronary atherosclerosis of unspecified type of vessel, [place] or graft 414.00 ; Essential hypertension, benign 401.1 ; Other and unspecified hyperlipidemia 272.4 ; Diabetes mellitus without mention of complication, type II or unspecified type, uncontrolled 250.02 ; Depressive disorder, not elsewhere classified 311 and Restless legs syndrome [RLS] 333.94 [facility] [place] [address] [facility] [address] [id number] [place] 754517002 Jan, [facility] [place] [address] [facility] [address] [id number] [place] 686440526 December, Sciatica 724.3 ; Muscle spasm 728.85 ; UTI (urinary tract infection) 599.0 and Dysuria 788.1 [facility] [place] [address] [facility] [address] [id number] [place] 237749526 December, [facility] [place] [address] [facility] [address] [id number] [place] 740815243 December, Scabies 133.0 and Leg pain 729.5 [facility] [address] [facility] [id number] [place] [address] Nov, [facility] [address] [facility] [id number] [place] [address] Nov, [facility] [place] [address] [facility] [address] [id number] [place] 346868708 Aug, [facility] [address] [facility] [id number] [place] [address] Aug, [facility] [place] [address] [facility] [address] [id number] [place] 603751523 Jul, [facility] [address] [facility] [id number] [place] [address] Jul, [facility] [place] [address] [facility] [address] [id number] [place] 757822375 Jul, [facility] [address] [facility] [id number] [place] [address] Jul, [facility] [place] [address] [facility] [address] [id number] [place] 885459277 Jul, [facility] [address] [facility] [id number] [place] [address] Jul, [facility] [place] [address] [facility] [address] [id number] [place] 212075604 Jun, [facility] [place] [facility] [address] [id number] [place] [address] Jun, [facility] [place] [address] [id number] [place] 611168810 Jun, [facility] [place] [facility] [address] [facility] [id number] [facility] [place] [address] Jun, [facility] [place] [address] [id number] [place] 090769206 May, [facility] [address] [id number] [facility] [place] [address] May, [facility] [place] [facility] [address] [id number] [place] [address] Apr, [facility] [address] [facility] [id number] [place] [address] Apr, [facility] [place] [address] [facility] [address] [id number] [place] 893018911 Apr, [facility] [place] [facility] [address] [id number] [facility] [place] [address] Apr, [facility] [place] [address] [facility] [address] [id number] [place] 565352005 Apr, [facility] [address] [facility] [id number] [place] [address] Apr, [facility] [place] [facility] [address] [id number] [facility] [place] [address] Apr, [facility] [place] [address] [facility] [address] [id number] [place] 700046277 Apr, [facility] [place] [facility] [address] [id number] [facility] [place] [address] Apr, [facility] [place] [address] [facility] [address] [id number] [place] 527182199 Apr, [facility] [place] [facility] [address] [facility] [id number] [facility] [place] [address] Apr, [facility] [place] [facility] [address] [id number] [place] [address] Apr, [facility] [place] [address] [id number] [place] 218026146 Apr, [facility] [place] [address] [id number] [place] 831346929 Apr, [facility] [place] [facility] [address] [id number] [place] [address] Apr, [facility] [place] [facility] [address] [id number] [place] [address] Apr, [facility] [place] [address] [id number] [place] 018231247 Mar, [facility] [place] [facility] [address] [id number] [place] [address] Mar, [facility] [place] [address] [facility] [address] [id number] [place] 482347364 Mar, [facility] [address] [id number] [place] [address] Mar, [facility] [place] [address] [id number] [place] 507984211 Feb, [facility] [place] [facility] [address] [id number] [place] [address] Feb, [facility] [place] [address] [facility] [address] [id number] [place] [id number] December, [facility] [place] [facility] [address] [id number] [place] [address] December, [facility] [place] [address] [id number] [place] 964900945 December, [facility] [place] [facility] [address] [id number] [place] [address] December, [facility] [place] [address] [facility] [address] [id number] [place] 169753894 Nov, [facility] [place] [facility] [address] [id number] [place] [address] Nov, [facility] [place] [address] [id number] [place] 745580182 Nov, [facility] [place] [facility] [address] [id number] [place] [address] Nov, [facility] [place] [address] [facility] [address] [id number] [place] 538958266 Nov, [facility] [address] [id number][place] [address] Nov, [facility] [place] [facility] [address] [id number] [place] [address] Oct, [facility] [place] [facility] [address] [id number], [place] [address] Oct, [facility] [place] [facility] [address] [id number], [place] [address] Aug, [facility] [address] [id number] [place] [address] Aug, [facility] [place] [address] [facility] [address] [id number] [place] 764[address]9072 Aug, [facility] [address] [id number], [place] [address] Aug, [facility] [place] [facility] [address] [id number], [place] [address] Aug, [facility] [place] [facility] [address] [id number], [place] [address] Aug, [facility] [place] [address] [id number] [place] [id number] Jul, [facility] [place] [facility] [address] [id number], [place] [address] Jul, [facility] [place] [facility] [address] [id number], [place] [address] Jul, [facility] [place] [facility] [address] [facility] [id number] [place] [address] 12 Jul, 2013 [facility] [address] [id number] [place] [address] 19 Jun, 2013 [facility] [place] [facility] [address] [id number] [place] [address] Jun, [facility] [address] [id number] [place] [address] Jun, [facility] [place] [facility] [address] [id number] [place] [address] 08 Jun, 2013 [facility] [address] [id number] [place] [address] 08 Jun, 2013 [facility] [place] [facility] [address] [id number] [place] [address] 07 Jun, 2013 [facility] [address] [id number] [place] [address] 07 Jun, 2013 [facility] [address] [id number] [place] [address] 06 Jun, 2013 [facility] [place] [facility] [address] [id number] [place] [address] 06 Jun, 2013 [facility] [address] [facility] [id number] [place] [address] 18 May, 2013 [facility] [place] [facility] [address] [id number] [place] [address] 18 May, 2013 [facility] [place] [facility] [address] [id number][place] [address] 16 May, 2013 [facility] [place] [facility] [address] [id number] [place] [address] 16 May, 2013 [facility] [place] [facility] [address] [id number] [place] [address] 14 May, 2013 [facility] [place] [facility] [address] [id number] [place] [address] 14 May, 2013 [facility] [place] [facility] [address] [id number] [place] [address] 04 May, 2013 [facility] [place] [facility] [address] [id number] [place] [address] 04 Apr, 2013 [facility] [place] [facility] [address] [id number] [place] [address] Mar, [facility] [place] [facility] [address] [id number] [place] [address] Mar, [facility] [place] [facility] [address] [id number] [place] [address] Mar, [facility] [place] [facility] [address] [id number] [place] [address] Mar, [facility] [place] [facility] [address] [id number] [place] [address] 16 Feb, 2013 [facility] [place] [facility] [address] [id number] [place] [address] 15 Feb, 2013 [facility] [place] [facility] [address] [id number] [place] [address] Feb, [facility] [place] [facility] [address] [id number] [place] [address] Feb, [facility] [place] [facility] [address] [id number] [place] [address] Feb, [facility] [place] [facility] [address] [id number], [place] [address] Feb, [facility] [place] [facility] [address] [id number] [place] [address] Jan, [facility] [place] [facility] [address] [id number] [place] [address] Jan, [facility] [place] [facility] [address] [id number] [place] [address] Jan, [facility] [place] [facility] [address] [id number] [place] [address] Jan, IMMUNIZATIONS No Known Immunizations SOCIAL HISTORY Never Assessed REASON FOR VISIT Requests return call PLAN OF CARE VITAL SIGNS MEDICATIONS Unknown Medications RESULTS No Results PROCEDURES No Known procedures INSTRUCTIONS MEDICATIONS ADMINISTERED No Known Medications MEDICAL (GENERAL) HISTORY Type Description Date Medical History Atherosclerotic heart disease of [place] coronary artery without angina pectoris Medical [...]
--- OUTSIDE RECORDS SUMMARY | 2019-02-01 09:19 | XMS REPORT ---
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 Name Role Phone JEAN-PIERRE PARRISH CP Unavailable Allergies No Known Allergies Problems Problem Type Condition ICD-9 Code Onset Dates Condition Status Problem Shortness of breath 786.05 Active Problem Solitary pulmonary nodule 793.11 Active Problem Pure hyperglyceridemia 272.1 Active Problem Hypomagnesemia 275.2 Active Problem Depressive disorder, not elsewhere classified 311 Active Problem Undiagnosed cardiac murmurs 785.2 Active Problem Restless legs syndrome [RLS] 333.94 Active Assessment Nail dystrophy 703.8 Active Problem Diabetic neuropathy 250.60 Active Problem Hidradenitis 705.83 Active Problem Other dyspnea and respiratory abnormalities 786.09 Active Problem Coronary atherosclerosis of unspecified type of vessel, [place] or graft 414.00 Active Problem Personal history of tobacco use, presenting hazards to health V15.82 Active Problem Nondependent tobacco use disorder 305.1 Active Problem Chest pain, unspecified 786.50 Active Problem Diabetes mellitus without mention of complication, type II or unspecified type, uncontrolled 250.02 Active Problem Unspecified myalgia and myositis 729.1 Active Problem Other and unspecified hyperlipidemia 272.4 Active Problem Essential hypertension, benign 401.1 Active Problem Unspecified hypertrophic and atrophic condition of skin 701.9 Active Problem Pain in soft tissues of limb 729.5 Active Problem Unspecified essential hypertension 401.9 Active Problem Pain in joint, forearm 719.43 Active Medications No Known Medications Results No Known Results Summary Purpose [employer] Submission
--- OUTSIDE RECORDS SUMMARY | 2019-02-01 09:19 | XMS REPORT ---
Author Author SJ ALY [facility] [place] Address [address] [place] [address] Care Team Providers Care Cage Loader Name Role Phone ALYSJ Unavailable PROBLEMS Type Condition ICD9-CM Code WBJ70-RX Code Onset Dates Condition Status SNOMED Code Problem Essential (primary) hypertension I10 Active 68546352 Problem Type 2 diabetes mellitus with hyperglycemia E11.65 Active [id number] Problem Pure hyperglyceridemia E78.1 Active 770885439 Problem Chronic obstructive pulmonary disease, unspecified COPD type J44.9 Active 16944868 Problem Essential hypertension I10 Active 62578455 Problem Restless legs syndrome G25.81 Active 03414177 Problem Type 2 diabetes mellitus with diabetic neuropathy, unspecified E11.40 Active 8354066840316 Problem DM neuro manif type II E11.40 Active 313237182 Problem Fibromyalgia M79.7 Active 307159910 Problem Solitary pulmonary nodule 793.11 Active 770885517 Problem Unspecified hypertrophic and atrophic condition of skin 701.9 Active 174652569 Problem Hypomagnesemia 275.2 Active 360295418 Problem Diabetic neuropathy 250.60 Active 024296821 Problem Coronary atherosclerosis of unspecified type of vessel, point hope ira or graft 414.00 Active 716733714 Problem Type 2 diabetes mellitus without complication E11.9 Active 02597670 Problem Depressive disorder, not elsewhere classified 311 Active 46609844 Problem Cardiac murmur, unspecified R01.1 Active 547701211 ALLERGIES Substance Reaction Event Type Date Status Hydrocodone-Acetaminophen itching Drug Allergy Aug, Active Acetaminophen-Codeine #3 itching Drug Allergy Aug, Active ENCOUNTERS Encounter Location Date Diagnosis [facility] [place] [address] [facility] [address] [id number] [place] [id number] Feb, [facility] [place] [address] [facility] [address] [id number] [place] [id number] Jan, [facility] [place] [address] [facility] [address] [id number] [place] 023586032 Jan, [facility] [place] [address] [facility] [address] [id number] [place] 718078366 Jan, [facility] [place] [address] [facility] [address] [id number] [place] 033798566 December, Essential (primary) hypertension I10 [facility] [place] [address] [place] [address] [address] [id number] [place] 3524[address]471 December, Restless legs syndrome G25.81 [facility] [place] [address] [place] [address] [address] [id number] [place] 6[address]20517 December, Restless legs syndrome G25.81 [facility] [place] [address] [place] [address] [address] [id number] [place] [id number] December, Restless legs syndrome G25.81 [facility] [place] [address] [place] [address] [address] [id number] [place] 262683418 December, Restless legs syndrome G25.81 [facility] [place] [address] [place] [address] [address] [id number] [place] 312708426 Nov, [facility] [place] [address] [place] [address] [address] [id number] [place] 355107512 Nov, Type 2 diabetes mellitus with hyperglycemia E11.65 [facility] [address] [facility] [id number] [place] [address] Nov, Essential hypertension I10 [facility] [place] [address] [place] [address] [address] [id number] [place] 9[address]643 Oct, Restless legs syndrome G25.81 [facility] [place] [address] [place] [address] [address] [id number] [place] 858277840 Aug, Type 2 diabetes mellitus with hyperglycemia E11.65 ; Restless legs syndrome G25.81 ; Fibromyalgia M79.7 ; Essential hypertension I10 and Urinary urgency R39.15 [facility] [place] [address] [place] [address] [address] [id number] [place] 299581415 May, [facility] [place] [address] [place] [address] [address] [id number] [place] 950073490 May, Type 2 diabetes mellitus with hyperglycemia E11.65 [facility] [place] [address] [place] [address] [address] [id number] [place] [id number] May, [facility] [place] [address] [facility] [address] [id number] [place] [id number] 19 Apr, 2017 Type 2 diabetes mellitus with hyperglycemia E11.65 [facility] [place] [address] [facility] [address] [id number] [place] [id number] 15 Apr, 2017 [facility] [place] [address] [facility] [address] [id number] [place] [id number] 11 Apr, 2017 Hospital discharge follow-up Z09 ; Cardiac murmur, unspecified R01.1 ; Tobacco abuse Z72.0 and Chronic obstructive pulmonary disease, unspecified COPD type J44.9 [facility] [place] [address] [facility] [address] [id number] [place] [id number] Mar, Type 2 diabetes mellitus with hyperglycemia E11.65 [facility] [place] [address] [facility] [address] [id number] [place] 787462904 Feb, Type 2 diabetes mellitus with hyperglycemia E11.65 and Essential hypertension I10 [facility] [place] [address] [facility] [address] [id number] [place] 210441209 Feb, Restless legs syndrome G25.81 ; Type 2 diabetes mellitus with hyperglycemia E11.65 ; Essential hypertension I10 and Right upper quadrant pain R10.11 [facility] [place] [address] [facility] [address] [id number] [place] 050841967 Feb, [facility] [place] [address] [facility] [address] [id number] [place] [id number] Feb, [facility] [place] [address] [facility] [address] [id number] [place] 779229098 Jan, Type 2 diabetes mellitus with hyperglycemia E11.65 and Right sided abdominal pain R10.9 [facility] [place] [address] [facility] [address] [id number] [place] 156305809 Jan, [facility] [place] [address] [facility] [address] [id number] [place] 423006411 Jan, Nausea R11.0 ; Essential hypertension I10 and Dizziness R42 [facility] [place] [address] [facility] [address] [id number] [place] [id number] Jan, [facility] [place] [address] [facility] [address] [id number] [place] 063327231 Nov, [facility] [place] [address] [facility] [address] [id number] [place] 424531440 Nov, [facility] [place] [address] [facility] [address] [id number] [place] 710167980 Oct, [facility] [place] [address] [facility] [address] [id number] [place] 078964958 Oct, [facility] [place] [address] [facility] [address] [id number] [place] 334[address]153 Oct, [facility] [place] [address] [facility] [address] [id number] [place] [id number] Sep, [facility] [address] [facility] [id number] [place] [address] Sep, Ganglion of tendon M67.40 and DM neuro manif type II E11.40 [facility] [place] [address] [facility] [address] [id number] [place] [address] Aug, Pure hyperglyceridemia E78.1 [facility] [place] [address] [facility] [address] [id number] [place] 179799241 Aug, [facility] [place] [address] [facility] [address] [id number] [place] 940832208 Aug, [facility] [place] [address] [facility] [address] [id number] [place] 223634192 Aug, [facility] [place] [address] [facility] [address] [id number] [place] 088631357 Aug, Fibromyalgia M79.7 [facility] [place] [address] [facility] [address] [id number] [place] 958649540 Aug, [facility] [place] [address] [facility] [address] [id number] [place] 610574975 Aug, Fibromyalgia M79.7 [facility] [place] [address] [facility] [address] [id number] [place] 015042710 Aug, Fibromyalgia M79.7 ; Mass of right foot R22.41 and Type 2 diabetes mellitus with hyperglycemia E11.65 [facility] [place] [address] [facility] [address] [id number] [place] 436325630 Jun, [facility] [place] [address] [facility] [address] [id number] [place] 833684729 Jun, Furuncle L02.92 and Methicillin resistant Staph aureus culture positive Z22.322 [facility] [place] [address] [facility] [address] [id number] [place] 988984737 Jun, Furuncle L02.92 ; Cellulitis of other specified site L03.818 and Methicillin resistant Staph aureus culture positive Z22.322 [facility] [place] [address] [facility] [address] [id number] [place] 666415144 Jun, [facility] [place] [address] [facility] [address] [id number] [place] 276570707 Jun, Furuncle L02.92 and Cellulitis of other specified site L03.818 [facility] [place] [address] [facility] [address] [id number] [place] 535178913 May, Pure hyperglyceridemia E78.1 ; Abscess L02.91 ; Restless legs syndrome G25.81 and Type 2 diabetes mellitus with hyperglycemia E11.65 [facility] [place] [address] [facility] [address] [id number] [place] 110863202 May, [facility] [place] [address] [facility] [address] [id number] [place] 787700294 May, [facility] [place] [address] [facility] [address] [id number] [place] [id number] May, [facility] [place] [address] [facility] [address] [id number] [place] 324423386 16 Apr, 2016 [facility] [place] [address] [facility] [address] [id number] [place] [id number] Mar, Well woman exam Z01.419 ; Encounter for screening mammogram for breast cancer Z12.31 and History of cervical cancer Z85.41 [facility] [place] [address] [facility] [address] [id number] [place] 113574335 Mar, Insect bite, multiple W57.XXXA ; Type 2 diabetes mellitus with diabetic neuropathy, unspecified E11.40 ; Essential (primary) hypertension I10 ; DM neuro manif type II E11.40 and Restless legs syndrome G25.81 [facility] [place] [address] [facility] [address] [id number] [place] 069613301 Feb, [facility] [place] [address] [facility] [address] [id number] [place] 342202514 Feb, [facility] [place] [address] [facility] [address] [id number] [place] 842650958 Feb, [facility] [place] [address] [facility] [address] [id number] [place] 762198715 Jan, [facility] [place] [address] [facility] [address] [id number] [place] [id number] Jan, [facility] [place] [address] [facility] [address] [id number] [place] 267791875 Jan, Abscess L02.91 [facility] [place] [address] [place] [address] [address] [id number] [place] 291406808 December, DM neuro manif type II E11.40 ; Pure hyperglyceridemia E78.1 ; Essential (primary) hypertension I10 and Type 2 diabetes mellitus without complication E11.9 [facility] [place] [address] [facility] [address] [id number] [place] 369562084 Oct, [facility] [place] [address] [facility] [address] [id number] [place] 812251392 Sep, [facility] [place] [address] [facility] [address] [id number] [place] [id number] Sep, [facility] [place] [address] [facility] [address] [id number] [place] [id number] Sep, [facility] [place] [address] [facility] [address] [id number] [place] 812180500 Sep, Type 2 diabetes mellitus without complication E11.9 ; Pure hyperglyceridemia E78.1 ; Cardiac murmur, unspecified R01.1 and Essential (primary) hypertension I10 [facility] [place] [address] [facility] [address] [id number] [place] [id number] Aug, [facility] [place] [address] [facility] [address] [id number] [place] [id number] Jul, [facility] [place] [address] [facility] [address] [id number] [place] 048614606 Jul, [facility] [place] [address] [facility] [address] [id number] [place] 323863791 Jun, [facility] [place] [address] [facility] [address] [id number] [place] 204881649 Jun, [facility] [place] [address] [facility] [address] [id number] [place] 396896428 May, [facility] [place] [address] [facility] [address] [id number] [place] 068995187 May, [facility] [place] [address] [facility] [address] [id number] [place] 779678064 May, [facility] [place] [address] [facility] [address] [id number] [place] 169016048 May, [facility] [place] [address] [facility] [address] [id number] [place] 700241182 May, [facility] [place] [address] [facility] [address] [id number] [place] 932908262 May, [facility] [place] [address] [facility] [address] [id number] [place] 094671546 Apr, Onychomycosis 110.1 [facility] [place] [address] [place] [address] [address] [id number] [place] [id number] 15 Apr, 2015 [facility] [place] [address] [facility] [address] [id number] [place], [place] 146261763 14 Apr, 2015 Nail dystrophy 703.8 [facility] [place] [address] [facility] [address] [id number] [place] [id number] 08 Apr, 2015 Ingrown nail 703.0 [facility] [place] [address] [facility] [address] [id number] [place], [place] [id number] 04 Apr, 2015 Ingrown nail 703.0 [facility] [place] [address] [facility] [address] [id number] [place] 856804576 Mar, [facility] [place] [address] [facility] [address] [id number] [place] 699146403 Mar, Diabetic neuropathy 250.60 ; Fibromyalgia 729.1 and Lumbago 724.[address] [id number] [place] 772[address]33[address] Mar, [address] [id number] [place] 269883050 Jan, Diabetes mellitus without mention of complication, type II or unspecified type, uncontrolled 250.02 and Hypomagnesemia 275.[address] [id number] [place], [place] 121388103 Jan, [address] [id number] [place] [id number] Jan, Coronary atherosclerosis of unspecified type of vessel, point hope ira or graft 414.00 ; Essential hypertension, benign 401.1 ; Other and unspecified hyperlipidemia 272.4 ; Diabetes mellitus without mention of complication, type II or unspecified type, uncontrolled 250.02 ; Depressive disorder, not elsewhere classified 311 and Restless legs syndrome [RLS] 333.[address] [id number] [place] 635382079 Jan, [address] [id number] [place] 491691965 December, Sciatica 724.3 ; Muscle spasm 728.85 ; UTI (urinary tract infection) 599.0 and Dysuria 788.[address] [id number] [place] 978104226 December, [address] [id number] [place] 087532216 December, Scabies 133.0 and Leg pain 729.5 [place] [address] [address] Nov, [facility] [address] [address] Nov, [address] [id number] [place] [id number] Aug, [place] [address] [place] [id number] [place] [address] Aug, [facility] [place] [address] [id number] [place] 022593821 Jul, [facility] [place] [facility] [address] [id number] [place] [address] Jul, [facility] [place] [address] [id number] [place] [id number] Jul, [facility] [place] [facility] [address] [id number] [place] [address] Jul, [facility] [place] [address] [id number] [place] 638944354 Jul, [facility] [place] [facility] [address] [facility] [id number] [place] [address] Jul, [facility] [place] [address] [id number] [facility] [address] Jun, [facility] [place] [facility] [address] [id number] [place] [address] Jun, [facility] [place] [address] [id number] [place] 384597467 Jun, [facility] [place] [facility] [address] [facility] [id number] [place] [address] Jun, [facility] [place] [address] [facility] [address] [id number] [place] 561165174 May, [facility] [place] [facility] [address] [id number] [place] [address] May, [facility] [place] [facility] [address] [id number] [place] [address] Apr, [facility] [place] [facility] [address] [id number] [place] [address] Apr, [facility] [place] [address] [facility] [address] [id number] [place] 160351963 Apr, [facility] [place] [facility] [address] [id number] [place] [address] Apr, [facility] [place] [address] [facility] [address] [id number] [place] 108964234 Apr, [facility] [place] [facility] [address] [facility] [id number] [place] [address] Apr, [facility] [place] [facility] [address] [facility] [id number] [place] [address] Apr, [facility] [place] [address] [facility] [address] [id number] [place] 632906113 Apr, [facility] [place] [facility] [address] [facility] [id number] [place] [address] Apr, [facility] [place] [address] [facility] [address] [id number] [place] 563869499 Apr, [facility] [place] [facility] [address] [facility] [id number] [place] [address] Apr, [facility] [place] [facility] [address] [facility] [id number] [place] [address] Apr, [facility] [place] [address] [facility] [address] [id number] [place] 100084426 Apr, [facility] [place] [address] [facility] [address] [id number] [place] 916256773 Apr, [facility] [place] [facility] [address] [facility] [id number] [place] [address] Apr, [facility] [place] [facility] [address] [facility] [id number] [place] [address] Apr, [facility] [place] [address] [id number] [place] 937599555 Mar, [facility] [place] [facility] [address] [facility] [id number] [place] [address] Mar, [facility] [place] [address] [facility] [address] [id number] [place] 724157286 Mar, [facility] [place] [facility] [address] [facility] [id number] [place] [address] Mar, [facility] [place] [address] [id number] [place] 654999068 Feb, [facility] [place] [facility] [address] [id number] [place] [address] Feb, [facility] [place] [address] [id number] [place] 122830430 December, [facility] [place] [facility] [address] [id number] [place] [address] December, [facility] [place] [address] [id number] [place] 257442629 December, [facility] [place] [facility] [address] [id number] [place] [address] December, [facility] [place] [address] [id number] [place] 736049839 Nov, [facility] [place] [facility] [address] [id number] [place] [address] Nov, [facility] [place] [address] [id number] [place] 130463377 Nov, [facility] [place] [facility] [address] [id number] [place] [address] Nov, [facility] [place] [address] [id number] [place] 734373881 Nov, [facility] [place] [facility] [address] [id number] [place] [address] Nov, [facility] [place] [facility] [address] [id number] [place] [address] Oct, [facility] [place] [facility] [address] [id number] [place] [address] Oct, [facility] [place] [facility] [address] [id number] [place] [address] Aug, [facility] [place] [facility] [address] [id number] [place] [address] Aug, [facility] [place] [address] [id number] [place] [id number] Aug, [facility] [place] [facility] [address] [id number] [place] [address] Aug, [facility] [place] [facility] [address] [id number] [place] [address] Aug, [facility] [place] [facility] [address] [id number] [place] [address] Aug, [facility] [place] [address] [id number] [place] 023633303 Jul, [facility] [place] [facility] [address] [id number] [place] [address] Jul, [facility] [place] [facility] [address] [id number] [place] [address] Jul, [facility] [place] [facility] [address] [id number] [place] [address] Jul, [facility] [place] [facility] [address] [id number] [place] [address] Jun, [facility] [place] [facility] [address] [id number] [place] [address] Jun, [facility] [place] [facility] [address] [id number] [place] [address] Jun, [facility] [place] [facility] [address] [id number] [place] [address] Jun, [facility] [place] [facility] [address] [id number] [place] [address] Jun, [facility] [place] [facility] [address] [id number] [place] [address] Jun, [facility] [place] [facility] [address] [id number] [place] [address] Jun, [facility] [place] [facility] [address] [id number] [place] [address] Jun, [facility] [place] [facility] [address] [id number] [place] [address] 06 Jun, 2013 [facility] [place] [facility] [address] [id number] [place] [address] May, [facility] [place] [facility] [address] [id number] [place] [address] 18 May, 2013 [facility] [place] [facility] [address] [id number] [place] [address] May, [facility] [place] [facility] [address] [id number] [place] [address] May, [facility] [place] [facility] [address] [id number] [place] [address] May, [facility] [place] [facility] [address] [id number] [place] [address] May, [facility] [place] [facility] [address] [id number] [place] [address] May, [facility] [place] [facility] [address] [id number] [place] [address] Apr, [facility] [place] [facility] [address] [id number] [address] Mar, [facility] [place] [facility] [address] [id number] [address] Mar, [facility] [place] [facility] [address] [id number] [address] Mar, [facility] [place] [facility] [address] [id number] [place] [address] Mar, [facility] [place] [facility] [address] [id number] [address] Feb, [facility] [place] [facility] [address] [id number] [place] [address] Feb, [facility] [place] [facility] [address] [facility] [id number] [address] Feb, [facility] [address] [id number] [address] Feb, [facility] [address] [id number] [address] Feb, [facility] [id number] [address] Feb, [facility] [id number] [address] Jan, [facility] [id number] [address] Jan, [facility] [id number] [address] Jan, [facility] [address] [id number] [address] Jan, IMMUNIZATIONS No Known Immunizations SOCIAL HISTORY Never Assessed REASON FOR VISIT [facility]ana [place], incontinence issues. PLAN OF CARE Activity Details Follow Up prn, 4 Weeks Reason: VITAL SIGNS Height 63 in 2017-08-26 Weight 164 lbs 2017-08-26 Temperature 98.7 degrees Fahrenheit 2017-08-26 Heart Rate 68 bpm 2017-08-26 Respiratory Rate 16 2017-08-26 BMI 29.05 kg/m2 2017-08-26 Blood pressure systolic 142 mmHg 2017-08-26 Blood pressure diastolic 70 mmHg 2017-08-26 MEDICATIONS Medication Instructions Dosage Frequency Start Date End Date Duration Status Atorvastatin Calcium 40 mg Orally Once a day 1 tablet 24h May, Active Magnesium 250 MG Orally Once a day 1 tablet with a meal 24h Active Advair Diskus 250-50 MCG/DOSE by inhalation route Twice a day 1 puff 12h Active Aspirin 81 MG Orally Once a day 1 tablet 24h Active Metoprolol Tartrate 100 mg Orally Twice a day 1/2 tablet 12h Aug, Active Protonix 40 MG Orally Once a day 1 packet 24h Apr, 30 day(s) Active MetFORMIN HCl ER 500 mg Orally 2 times a day 1 tablet with evening meal 12h Jan, 30 day(s) Active Lisinopril 2.5 MG Orally Once a day 1 tablet 24h 90 days Active Duloxetine HCl 60 mg Orally Once a day 2 capsule 24h Active Ropinirole HCl 0.5 MG Orally HS 3 tablets Jun, 30 days Active RESULTS Name Result Date Reference Range A1C (IN HOUSE) A1C IN HOUSE 6.4 4.3 - 5.6 % Previous A1c 7.3 Lot [id number] Exp date 10/2018 UA LONG DIP (IN HOUSE) Lot # [id number] Exp date 05/2018 Clarity clear Color yellow Odor none GLU neg JOHN PAUL neg KET neg SG 1.010 BLO neg pH 7.0 Protein neg URO 0.2 NIT neg TAMMY neg Lot # Exp date PROCEDURES Procedure Date Ordered Result Body Site URINALYSIS, AUTO, W/O SCOPE Aug 26, 2017 GLYCATED HEMOGLOBIN TEST Aug 26, 2017 INSTRUCTIONS MEDICATIONS ADMINISTERED No Known Medications MEDICAL (GENERAL) HISTORY Type Description Date Medical History Atherosclerotic heart disease of [place] coronary artery without angina pectoris Medical History [...]
--- OUTSIDE RECORDS SUMMARY | 2019-02-01 09:20 | XMS REPORT ---
Author EDUARDO Myers e[employer] Address Unknown Phone Unavailable Care Team Providers Care Electrolysis Investigator Name Role Phone EDUARDO WEBB CP Unavailable Allergies, Adverse Reactions, Alerts Substance Reaction Event Type Hydrocodone-Acetaminophen itching Drug Allergy Problems Problem Type Condition Code Onset Dates Condition Status Assessment Type 2 diabetes mellitus without complication E11.9 Active Assessment Essential (primary) hypertension I10 Active Assessment Pure hyperglyceridemia E78.1 Active Assessment DM neuro manif type II E11.40 Active Problem Restless legs syndrome [RLS] 333.94 Active Problem Solitary pulmonary nodule 793.11 Active Problem Depressive disorder, not elsewhere classified 311 Active Problem Other dyspnea and respiratory abnormalities 786.09 Active Problem Diabetes mellitus without mention of complication, type II or unspecified type, uncontrolled 250.02 Active Problem Hidradenitis 705.83 Active Problem Coronary atherosclerosis of unspecified type of vessel, [place] or graft 414.00 Active Problem Personal history of tobacco use, presenting hazards to health V15.82 Active Problem Pure hyperglyceridemia E78.1 Active Problem Cardiac murmur, unspecified R01.1 Active Problem Chest pain, unspecified 786.50 Active Problem Nondependent tobacco use disorder 305.1 Active Problem Type 2 diabetes mellitus without complication E11.9 Active Problem Unspecified myalgia and myositis 729.1 Active Problem Hypomagnesemia 275.2 Active Problem Undiagnosed cardiac murmurs 785.2 Active Problem Essential (primary) hypertension I10 Active Problem Diabetic neuropathy 250.60 Active Problem Other and unspecified hyperlipidemia 272.4 Active Problem Essential hypertension, benign 401.1 Active Problem Unspecified hypertrophic and atrophic condition of skin 701.9 Active Problem Unspecified essential hypertension 401.9 Active Problem Shortness of breath 786.05 Active Problem Pure hyperglyceridemia 272.1 Active Problem Pain in soft tissues of limb 729.5 Active Problem Pain in joint, forearm 719.43 Active Medications Medication Code System Code Instructions Start Date End Date Status Dosage Garlic [facility] [address]-36 100 MG Orally not defined HydrOXYzine HCl [facility] [address]-35 10 MG Orally 2 times a day PRN not defined Gabapentin [facility] [address]-54 600 MG Orally Three times a day January 03, 2015 1 tablet Crestor [facility] [address]-78 40 mg May 11, 2014 1 tablet by Oral route 1 time per day Toprol XL [facility] [address]-50 100 MG Orally Sep 05, 2014 take 1 tablet by Oral route 1 time per day Advair Diskus [facility] [address]-87 250-50 MCG/DOSE Inhalation not defined Metoprolol Tartrate [facility] [address]-23 50 mg November 28, 2013 take 1 tablet by Oral route 2 times per day Aspirin [facility] [address]-21 81 mg January 27, 2013 1 tablet by Oral route 1 time per day Cyclobenzaprine HCl [facility] [address]-52 5 MG Orally Once a day at HS Apr 02, 2015 1 tablet Ventolin HFA [facility] [address]-40 90 MCG/ACT Inhalation every 4 hrs 2 puffs as needed metformin [facility] [address]-50 1,000 mg Aug 04, 2014 take 1 tablet by Oral route 2 times per day Lisinopril [facility] [address]-26 2.5 MG Orally Once a day 1 tablet Requip [facility] [address]-20 0.5 MG Sep 05, 2014 3 tablet by Oral route 1 time per day 1-3 hours before HS Cymbalta [facility] [address]-81 60 mg November 28, 2013 1 Capsule by Oral route 1 time per day Procedures Procedure Coding System Code Date [facility] NOBLL January 15, 2016 VENIPUNCT, ROUTINE* CPT-4 74067 January 15, 2016 GLYCATED HEMOGLOBIN TEST CPT-4 88368 January 15, 2016 Office Visit, Est Pt., Level 3 CPT-4 11178 January 15, 2016 FOOT EXAM PERFORMED CPT-4 2028F January 15, 2016 Vital Signs Date/Time: January 15, 2016 Cardiac Monitoring Heart Rate 68 bpm Weight 169.0 lbs Height 63 in BMI 29.93 Index Blood Pressure Diastolic 88 mmHg Blood Pressure Systolic 140 mmHg Results No Known Results Summary Purpose [employer]ClinicalWorks Submission
--- OUTSIDE RECORDS SUMMARY | 2019-02-01 09:20 | XMS REPORT ---
Author Author SJ ALY [facility] [employer] Address Unknown Phone Unavailable Care Team Providers Care Pension Agent Name Role Phone SJ ALY CP Unavailable Allergies, Adverse Reactions, Alerts Substance Reaction Event Type Hydrocodone-Acetaminophen itching Drug Allergy Acetaminophen-Codeine #3 itching Drug Allergy Problems Problem Type Condition Code Onset Dates Condition Status Assessment Cellulitis of other specified site L03.818 Active Assessment Methicillin resistant Staph aureus culture positive Z22.322 Active Assessment Furuncle L02.92 Active Problem Restless legs syndrome [RLS] 333.94 Active Problem Depressive disorder, not elsewhere classified 311 Active Problem Diabetes mellitus without mention of complication, type II or unspecified type, uncontrolled 250.02 Active Problem Unspecified myalgia and myositis 729.1 Active Problem Personal history of tobacco use, presenting hazards to health V15.82 Active Problem Nondependent tobacco use disorder 305.1 Active Problem Coronary atherosclerosis of unspecified type of vessel, [place] or graft 414.00 Active Problem Chest pain, unspecified 786.50 Active Problem Undiagnosed cardiac murmurs 785.2 Active Problem Diabetic neuropathy 250.60 Active Problem Hypomagnesemia 275.2 Active Problem Restless legs syndrome G25.81 Active Problem Type 2 diabetes mellitus with diabetic neuropathy, unspecified E11.40 Active Problem Other and unspecified hyperlipidemia 272.4 Active Problem Unspecified essential hypertension 401.9 Active Problem Type 2 diabetes mellitus with hyperglycemia E11.65 Active Problem Unspecified hypertrophic and atrophic condition of skin 701.9 Active Problem Cardiac murmur, unspecified R01.1 Active Problem Essential (primary) hypertension I10 Active Problem Type 2 diabetes mellitus without complication E11.9 Active Problem Pure hyperglyceridemia E78.1 Active Problem Pain in joint, forearm 719.43 Active Problem Shortness of breath 786.05 Active Problem Essential hypertension, benign 401.1 Active Problem Pain in soft tissues of limb 729.5 Active Problem Other dyspnea and respiratory abnormalities 786.09 Active Problem Hidradenitis 705.83 Active Problem Pure hyperglyceridemia 272.1 Active Problem Solitary pulmonary nodule 793.11 Active Medications Medication Code System Code Instructions Start Date End Date Status Dosage Toprol XL [facility] [address]-79 100 MG Orally Sep 05, 2014 take 1 tablet by Oral route 1 time per day Advair Diskus [facility] [address]-10 250-50 MCG/DOSE by inhalation route Twice a day 1 puff metformin [facility] [address]-56 1,000 mg Aug 04, 2014 take 1 tablet by Oral route 2 times per day Metoprolol Tartrate [facility] [address]-95 50 mg November 28, 2013 take 1 tablet by Oral route 2 times per day Aspirin [facility] [address]-23 81 mg January 27, 2013 1 tablet by Oral route 1 time per day Bactrim DS [facility] [address]-03 800-160 MG Orally Twice a day Jun 16, 2016 Jun 26, 2016 1 tablet Lisinopril [facility] [address]-59 2.5 MG Orally Once a day 1 tablet BusPIRone HCl [facility] [address]-16 10 mg Orally Twice a day March 11, 2016 Take 1 tablet PredniSONE [facility] [address]-43 20 mg Orally Once a day Mar 17, 2016 2 tabs daily x 4 days then 1 tab daily x 4 days Ventolin HFA [facility] [address]-99 90 MCG/ACT Inhalation every 4 hrs 2 puffs as needed Atorvastatin Calcium [facility] [address]-94 40 mg Orally Once a day Jun 16, 2016 1 tablet Ropinirole HCl [facility] [address]-81 0.5 MG Orally @ HS Jun 19, 2016 3 tablets Cymbalta [facility] [address]-00 60 mg November 28, 2013 1 Capsule by Oral route 1 time per day Gabapentin [facility] [address]-04 600 MG Orally Three times a day January 03, 2015 1 tablet Procedures Procedure Coding System Code Date Office Visit, Est Pt., Level 3 CPT-4 60140 Jun 20, 2016 Vital Signs Date/Time: Jun 20, 2016 Cardiac Monitoring Heart Rate 66 bpm Weight 159.4 lbs Height 63 in BMI 28.23 Index Blood Pressure Diastolic 80 mmHg Blood Pressure Systolic 128 mmHg Results No Known Results Summary Purpose eClinicalWorks Submission
--- OUTSIDE RECORDS SUMMARY | 2019-02-01 09:20 | XMS REPORT ---
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 Name Role Phone ALY, SJ Unavailable PROBLEMS Type Condition ICD9-CM Code JBE16-LB Code Onset Dates Condition Status SNOMED Code Problem Essential (primary) hypertension I10 Active 22597363 Problem Type 2 diabetes mellitus with hyperglycemia E11.65 Active 144109485949968 Problem Pure hyperglyceridemia E78.1 Active 445013960 Problem Chronic obstructive pulmonary disease, unspecified COPD type J44.9 Active 43326670 Problem Essential hypertension I10 Active 05534212 Problem Restless legs syndrome G25.81 Active 38785304 Problem Type 2 diabetes mellitus with diabetic neuropathy, unspecified E11.40 Active 6235473680757 Problem DM neuro manif type II E11.40 Active 198826403 Problem Fibromyalgia M79.7 Active 151800584 Problem Solitary pulmonary nodule 793.11 Active 926002149 Problem Unspecified hypertrophic and atrophic condition of skin 701.9 Active 287519566 Problem Hypomagnesemia 275.2 Active 378330031 Problem Diabetic neuropathy 250.60 Active 414108138 Problem Coronary atherosclerosis of unspecified type of vessel, [place] or graft 414.00 Active 071882331 Problem Type 2 diabetes mellitus without complication E11.9 Active 88338911 Problem Depressive disorder, not elsewhere classified 311 Active 89954495 Problem Cardiac murmur, unspecified R01.1 Active 936270350 ALLERGIES No Information ENCOUNTERS Encounter Location Date Diagnosis [facility] [place] [address] [id number] [facility] [place] [id number] Feb, [facility] [place] [address] [id number] [facility] [place] [id number] December, [facility] [place] [address] [id number] [place] [address] December, Restless legs syndrome G25.81 [facility] [place] [address] [id number] [place] [id number] December, Restless legs syndrome G25.81 [facility] [place] [address] [id number] [place] [address]14420 December, Restless legs syndrome G25.81 [facility] [place] [address] [facility] [id number] [place] 258[address]05[address] December, Restless legs syndrome G25.81 [facility] [place] [address] [facility] [id number] [place] [address]44[address] Nov, [facility] [place] [address] [id number] [place] [id number] Nov, Type 2 diabetes mellitus with hyperglycemia E11.[address] [facility] [address] [facility] [id number] [place] [address] Nov, Essential hypertension I10 [facility] [place] [address] [place] [address] C [id number] [place] [id number] Oct, Restless legs syndrome G25.81 [facility] [place] [address] [facility] [id number] [place] [id number] Aug, Type 2 diabetes mellitus with hyperglycemia E11.65 ; Restless legs syndrome G25.81 ; Fibromyalgia M79.7 ; Essential hypertension I10 and Urinary urgency R39.15 [facility] [place] [address] [id number] [place] [id number] May, [facility] [place] [address] [place] [address] [address] [id number] [place] [address]24523 May, Type 2 diabetes mellitus with hyperglycemia E11.65 [facility] [place] [address] [facility] [id number] [place] [id number] May, [facility] [place] [address] [place] [address] [address] [id number] [place] [id number] 19 Apr, 2017 Type 2 diabetes mellitus with hyperglycemia E11.65 [facility] [place] [address] [facility] [id number] [place] [id number] 15 Apr, 2017 [facility] [place] [address] [place] [address] [address] [id number] [place] [id number] 11 Apr, 2017 Hospital discharge follow-up Z09 ; Cardiac murmur, unspecified R01.1 ; Tobacco abuse Z72.0 and Chronic obstructive pulmonary disease, unspecified COPD type J44.9 [facility] [place] [address] [facility] [id number] [place] [id number] Mar, Type 2 diabetes mellitus with hyperglycemia E11.65 [facility] [place] [address] [facility] [id number] [place] 8287404[address] Feb, Type 2 diabetes mellitus with hyperglycemia E11.65 and Essential hypertension I10 [facility] [place] [address] [facility] [id number] [place] [address] Feb, Restless legs syndrome G25.81 ; Type 2 diabetes mellitus with hyperglycemia E11.65 ; Essential hypertension I10 and Right upper quadrant pain R10.11 [facility] [place] [address] [facility] [id number] [place] [id number] Feb, [facility] [place] [address] [facility] [id number] [place] 433[address]4680 Feb, [facility] [place] [address] [facility] [id number] [place] 363199939 Jan, Type 2 diabetes mellitus with hyperglycemia E11.65 and Right sided abdominal pain R10.9 [facility] [place] [address] [facility] [id number] [place] [id number] Jan, [facility] [place] [address] [facility] [id number] [place] 304037007 Jan, Nausea R11.0 ; Essential hypertension I10 and Dizziness R42 [facility] [place] [address] [facility] [id number] [place] 590863384 Jan, [facility] [place] [address] [facility] [id number] [place] [address]014437 Nov, [facility] [place] [address] [facility] [id number] [place] [id number] Nov, [facility] [place] [address] [facility] [id number] [place] [id number] Oct, [facility] [place] [address] [facility] [id number] [place] [id number] Oct, [facility] [place] [address] [facility] [id number] [place] 378045145 Oct, [facility] [place] [address] [facility] [id number] [place] [id number] Sep, [facility] [address] [facility] [id number] [place] [address] 17 Sep, 2016 Ganglion of tendon M67.40 and DM neuro manif type II E11.40 [facility] [place] [address] [facility] [id number] [place] [id number] Aug, Pure hyperglyceridemia E78.1 [facility] [place] [address] [facility] [id number] [place] 133354586 Aug, [facility] [place] [address] [facility] [id number] [place] 700727771 Aug, [facility] [place] [address] [facility] [id number] [place] [id number] Aug, [facility] [place] [address] [facility] [id number] [place] 242817688 Aug, Fibromyalgia M79.7 [facility] [place] [address] [facility] [id number] [place] 893757438 Aug, [facility] [place] [address] [facility] [id number] [place] 692814925 Aug, Fibromyalgia M79.7 [facility] [place] [address] [facility] [id number] [place] 525124652 Aug, Fibromyalgia M79.7 ; Mass of right foot R22.41 and Type 2 diabetes mellitus with hyperglycemia E11.65 [facility] [place] [address] [id number] [place] 318248935 Jun, [facility] [place] [address] [id number] [place] 051304506 Jun, Furuncle L02.92 and Methicillin resistant Staph aureus culture positive Z22.322 [facility] [place] [address] [facility] [id number] [place] 248567148 Jun, Furuncle L02.92 ; Cellulitis of other specified site L03.818 and Methicillin resistant Staph aureus culture positive Z22.322 [facility] [place] [address] [facility] [id number] [place] 815692953 Jun, [facility] [place] [address] [facility] [address] [id number] [place] 011741769 Jun, Furuncle L02.92 and Cellulitis of other specified site L03.818 [facility] [place] [address] [facility] [id number] [place] 143353947 May, Pure hyperglyceridemia E78.1 ; Abscess L02.91 ; Restless legs syndrome G25.81 and Type 2 diabetes mellitus with hyperglycemia E11.65 [facility] [place] [address] [facility] [id number] [place] 810123987 May, [facility] [place] [address] [id number] [place] [id number] May, [facility] [place] [address] [id number] [place] 906007563 May, [facility] [place] [address] [id number] [place] 162721039 Apr, [facility] [place] [address] [id number] [place] 600531126 Mar, Well woman exam Z01.419 ; Encounter for screening mammogram for breast cancer Z12.31 and History of cervical cancer Z85.41 [facility] [place] [address] [place] [address] [address] [id number] [place] 590613018 Mar, Insect bite, multiple W57.XXXA ; Type 2 diabetes mellitus with diabetic neuropathy, unspecified E11.40 ; Essential (primary) hypertension I10 ; DM neuro manif type II E11.40 and Restless legs syndrome G25.81 [facility] [place] [address] [facility] [id number] [place] 290853559 Feb, [facility] [place] [address] [id number] [place] 160791502 Feb, [facility] [place] [address] [facility] [id number] [place] 437075993 Feb, [facility] [place] [address] [facility] [id number] [place] 455521054 Jan, [facility] [place] [address] [facility] [id number] [place] 480230022 Jan, [facility] [place] [address] [facility] [facility] [address] [id number] [place] 287453396 Jan, Abscess L02.91 [facility] [place] [address] [facility] [id number] [place] 341875394 December, DM neuro manif type II E11.40 ; Pure hyperglyceridemia E78.1 ; Essential (primary) hypertension I10 and Type 2 diabetes mellitus without complication E11.9 [facility] [place] [address] [facility] [id number] [place] 028795508 Oct, [facility] [place] [address] [facility] [address] [id number] [place] 397820080 Sep, [facility] [place] [address] [facility] [address] [id number] [place] 882238809 Sep, [facility] [place] [address] [facility] [address] [id number] [place] 938917430 Sep, [facility] [place] [address] [facility] [address] [id number] [place] 310348876 Sep, Type 2 diabetes mellitus without complication E11.9 ; Pure hyperglyceridemia E78.1 ; Cardiac murmur, unspecified R01.1 and Essential (primary) hypertension I10 [facility] [place] [address] [facility] [address] [id number] [place] 467478842 Aug, [facility] [place] [address] [facility] [address] [id number] [place] 485654386 Jul, [facility] [place] [address] [facility] [address] [id number] [place] [id number] Jul, [facility] [place] [address] [facility] [address] [id number] [place] 730747963 Jun, [facility] [place] [address] [facility] [address] [id number] [place] [id number] Jun, [facility] [place] [address] [facility] [address] [id number] [place] 214760676 May, [facility] [place] [address] [facility] [address] [id number] [place] [id number] May, [facility] [place] [address] [facility] [address] [id number] [place] 791128984 May, [facility] [place] [address] [facility] [address] [id number] [place] [id number] May, [facility] [place] [address] [place] [address] [address] [id number] [place] [id number] May, [facility] [place] [address] [place] [address] [address] [id number] [place] [id number] May, [facility] [place] [address] [place] [address] [address] [id number] [place] 770468148 Apr, Onychomycosis 110.1 [facility] [place] [address] [place] [address] [address] [id number] [place] [id number] Apr, [facility] [place] [address] [place] [address] [address] [id number] [place] 399382640 Apr, Nail dystrophy 703.8 [facility] [place] [address] [place] [address] [address] [id number] [place] [id number] 08 Apr, 2015 Ingrown nail 703.0 [facility] [place] [address] [place] [address] [address] [id number] [place] [id number] 04 Apr, 2015 Ingrown nail 703.0 [facility] [place] [address] [place] [address] [address] [id number] [place] [id number] Mar, [facility] [place] [address] [place] [address] [address] [id number] [place] [id number] Mar, Diabetic neuropathy 250.60 ; Fibromyalgia 729.1 and Lumbago 724.2 [facility] [place] [address] [place] [address] [address] [id number] [place] [id number] Mar, [facility] [place] [address] [place] [address] [address] [id number] [place] 988116277 Jan, Diabetes mellitus without mention of complication, type II or unspecified type, uncontrolled 250.02 and Hypomagnesemia 275.2 [facility] [place] [address] [place] [address] [address] [id number] [place] [id number] Jan, [facility] [place] [address] [facility] [address] [id number] [place] 485482029 Jan, Coronary atherosclerosis of unspecified type of vessel, [place] or graft 414.00 ; Essential hypertension, benign 401.1 ; Other and unspecified hyperlipidemia 272.4 ; Diabetes mellitus without mention of complication, type II or unspecified type, uncontrolled 250.02 ; Depressive disorder, not elsewhere classified 311 and Restless legs syndrome [RLS] 333.94 [facility] [place] [address] [facility] C [id number] [place] 446698716 Jan, [facility] [place] [address] [place] [address] C [id number] [place] 608408510 December, Sciatica 724.3 ; Muscle spasm 728.85 ; UTI (urinary tract infection) 599.0 and Dysuria 788.1 [facility] [address] [place] [address] C [id number] [place], [place] [id number] December, [facility] [place] [address] [place] [address] C [id number] [place] 715720235 December, Scabies 133.0 and Leg pain 729.5 [facility] [address] [id number] [address] Nov, [facility] [address] [id number] [address] Nov, [facility] [address] [place] [address] [id number] [place] [id number] Aug, [facility] [address] [id number] [address] Aug, [facility] [address] [place] [address] C [id number] [place] [id number] Jul, [facility] [id number] [address] Jul, [facility] [address] [place] [address] C [id number] [place] [id number] Jul, [facility] [id number] [place] [address] Jul, [facility] [place] [address] [facility] [address] [id number] [place] [id number] Jul, [facility] [place] [facility] [address] [facility] [id number] [place] [address] Jul, [facility] [place] [address] [facility] [address] [id number] [place] [id number] Jun, [facility] [place] [facility] [address] [facility] [id number] [place] [address] Jun, [facility] [place] [address] [facility] [address] [id number] [place] 716863317 Jun, [facility] [place] [facility] [address] [facility] [id number] [place] [address] Jun, [facility] [place] [address] [facility] [address] [id number] [place] [id number] May, [facility] [place] [facility] [address] [facility] [id number] [place] [address] May, [facility] [place] [facility] [address] [facility] [id number] [place] [address] Apr, [facility] [place] [facility] [address] [facility] [id number] [place] [address] Apr, [facility] [place] [address] [facility] [address] [id number] [place] 600944245 Apr, [facility] [place] [facility] [address] [facility] [id number] [place] [address] Apr, [facility] [place] [address] [facility] [address] [id number] [place] [id number] Apr, [facility] [place] [facility] [address] [facility] [id number] [place] [address] Apr, [facility] [place] [facility] [address] [facility] [id number] [place] [address] Apr, [facility] [place] [address] [facility] [address] [id number] [place] 734504116 Apr, [facility] [place] [facility] [address] [id number] [place] [address] Apr, [facility] [place] [address] [facility] [address] [id number] [place] [id number] Apr, [facility] [place] [facility] [address] [facility] [id number] [place] [address] Apr, [facility] [place] [facility] [address] [id number] [facility] [place] [address] Apr, [facility] [place] [address] [id number] [place] 528213697 Apr, [facility] [place] [address] [id number] [place] [id number] Apr, [facility] [place] [facility] [address] [facility] [id number] [place] [address] Apr, [facility] [place] [facility] [address] [id number] [facility] [place] [address] Apr, [facility] [place] [address] [id number] [place] 247940689 Mar, [facility] [place] [facility] [address] [id number] [place] [address] Mar, [facility] [place] [address] [facility] [address] [id number] [place] [id number] Mar, [facility] [place] [facility] [address] [id number] [place] [address] Mar, [facility] [place] [address] [id number] [place] 310044156 Feb, [facility] [place] [facility] [address] [id number] [facility] [place] [address] Feb, [facility] [place] [address] [facility] [address] [id number] [place] [id number] December, [facility] [place] [facility] [address] [facility] [id number] [place] [address] December, [facility] [place] [address] [id number] [place] 605920878 December, [facility] [address] [id number] [facility] [place] [address] December, [facility] [place] [address] [id number] [place] [id number] Nov, [facility] [address] [id number] [facility] [place] [address] Nov, [facility] [place] [address] [id number] [place] [id number] Nov, [facility] [address] [id number] [place] [address] Nov, [facility] [place] [address] [id number] [place] 512147976 Nov, [facility] [address] [id number] [place] [address] Nov, [facility] [place] [facility] [address] [id number] [place] [address] Oct, [facility] [place] [facility] [address] [id number] [place] [address] Oct, [facility] [address] [id number] [place] [address] Aug, [facility] [place] [facility] [address] [id number] [place] [address] Aug, [facility] [place] [address] [id number] [place] [id number] Aug, [facility] [place] [facility] [address] [id number] [place] [address] Aug, [facility] [place] [facility] [address] [id number] [place] [address] Aug, [facility] [place] [facility] [address] [id number] [address] Aug, [facility] [place] [address] [facility] C [id number] [place] [id number] Jul, [facility] [place] [facility] [address] [id number] [place] [address] Jul, [facility] [place] [facility] [address] [id number] [place] [address] Jul, [facility] [place] [facility] [address] [id number] [place] [address] Jul, [facility] [place] [facility] [address] [id number] [place] [address] Jun, [facility] [place] [facility] [address] [id number] [place] [address] Jun, [facility] [place] [facility] [address] [id number] [place] [address] Jun, [facility] [place] [facility] [address] [id number] [place] [address] Jun, [facility] [place] [facility] [address] [id number] [place] [address] Jun, [facility] [place] [facility] [address] [id number] [place] [address] Jun, [facility] [place] [facility] [address] [id number] [place] [address] Jun, [facility] [place] [facility] [address] [id number] [place] [address] Jun, [facility] [place] [facility] [address] [id number] [place] [address] Jun, [facility] [place] [facility] [address] [id number] [place] [address] May, [facility] [place] [facility] [address] [id number] [place] [address] May, [facility] [place] [facility] [address] [id number] [place] [address] 16 May, 2013 [facility] [place] [facility] [address] [id number] [place] [address] 16 May, 2013 [facility] [place] [facility] [address] [id number] [place] [address] 14 May, 2013 [facility] [place] [facility] [address] [id number] [place] [address] 14 May, 2013 [facility] [place] [facility] [address] [id number] [place] [address] May, [facility] [place] [facility] [address] [id number] [place] [address] Apr, [facility] [place] [facility] [address] [id number] [place] [address] Mar, [facility] [place] [facility] [address] [id number] [place] [address] Mar, [facility] [place] [facility] [address] [id number], [place] [address] Mar, [facility] [place] [facility] [address] [id number] [place] [address] Mar, [facility] [place] [facility] [address] [id number], [place] [address] Feb, [facility] [place] [facility] [address] [id number], [place] [address] Feb, [facility] [place] [facility] [address] [id number], [place] [address] Feb, [facility] [place] [facility] [address] [id number] [place] [address] Feb, [facility] [place] [facility] [address] [id number], [place] [address] Feb, [facility] [place] [facility] [address] [id number], [place] [address] Feb, [facility] [place] [facility] [address] [facility] [id number] [place] [address] 18 Jan, 2013 [facility] [address] [facility] [id number], [place] [address] Jan, [facility] [address] [facility] [id number], [place] [address] 17 Jan, 2013 [facility] [address] [facility] [id number], [place] [address] Jan, IMMUNIZATIONS No Known Immunizations SOCIAL HISTORY Never Assessed REASON FOR VISIT out of Ropinirole PLAN OF CARE VITAL SIGNS MEDICATIONS Medication Instructions Dosage Frequency Start Date End Date Duration Status Ropinirole HCl 0.5 MG Orally HS 3 tablets Jun, 30 days Active RESULTS No Results PROCEDURES No Known procedures INSTRUCTIONS MEDICATIONS ADMINISTERED No Known Medications MEDICAL (GENERAL) HISTORY Type Description Date Medical History Atherosclerotic heart disease of [place] coronary artery without angina pectoris Medical History [...]
--- OUTSIDE RECORDS SUMMARY | 2019-02-01 09:20 | XMS REPORT ---
Author Author SJ ALY [facility] Address [address] [place] [address] Care Team Providers Care Rivet Tester Name Role Phone ALYSJ Unavailable PROBLEMS Type Condition ICD9-CM Code [id number] Code Onset Dates Condition Status SNOMED Code Problem Solitary pulmonary nodule 793.11 Active 274742557 Problem Chest pain, unspecified 786.50 Active 38312446 Problem Personal history of tobacco use, presenting hazards to health V15.82 Active 8156664317881 Problem Other dyspnea and respiratory abnormalities 786.09 Active 583344729 Problem Shortness of breath 786.05 Active 108538410 Problem Undiagnosed cardiac murmurs 785.2 Active 676749937 Problem Pain in soft tissues of limb 729.5 Active 64027469 Problem Unspecified myalgia and myositis 729.1 Active 670945250 Problem Diabetic neuropathy 250.60 Active 007524284 Problem Pain in joint, forearm 719.43 Active 490570489 Problem Type 2 diabetes mellitus without complication E11.9 Active 42817622 Problem Hidradenitis 705.83 Active 92487037 Problem Cardiac murmur, unspecified R01.1 Active 859084920 Problem Pure hyperglyceridemia E78.1 Active 843258848 Problem Essential (primary) hypertension I10 Active 66651982 Problem Essential hypertension I10 Active 91912398 Problem DM neuro manif type II E11.40 Active 289190454 Problem Unspecified essential hypertension 401.9 Active 50292402 Problem Coronary atherosclerosis of unspecified type of vessel, [place] or graft 414.00 Active 470913887 Problem Unspecified hypertrophic and atrophic condition of skin 701.9 Active 966073483 Problem Type 2 diabetes mellitus with diabetic neuropathy, unspecified E11.40 Active 7840827726136 Problem Type 2 diabetes mellitus with hyperglycemia E11.65 Active 975852018484143 Problem Fibromyalgia M79.7 Active 660136335 Problem Restless legs syndrome G25.81 Active 35754681 Problem Nondependent tobacco use disorder 305.1 Active 463461998 Problem Other and unspecified hyperlipidemia 272.4 Active 33803304 Problem Essential hypertension, benign 401.1 Active 2150575 Problem Depressive disorder, not elsewhere classified 311 Active 27984240 Problem Restless legs syndrome [RLS] 333.94 Active 90380580 Problem Hypomagnesemia 275.2 Active 818457116 Problem Pure hyperglyceridemia 272.1 Active 829721060 Problem Diabetes mellitus without mention of complication, type II or unspecified type, uncontrolled 250.02 Active 043263641 ALLERGIES Unknown Allergies SOCIAL HISTORY No smoking Hx information available PLAN OF CARE VITAL SIGNS MEDICATIONS Medication Instructions Dosage Frequency Start Date End Date Duration Status Advair Diskus 250-50 MCG/DOSE by inhalation route Twice a day 1 puff 12h Active RESULTS No Results PROCEDURES No Known procedures IMMUNIZATIONS No Known Immunizations
--- OUTSIDE RECORDS SUMMARY | 2019-02-01 09:21 | XMS REPORT ---
Author Author SJ ALY [facility] Address [address] [place] [address] Care Team Providers Care Crtts Name Role Phone ALYSJ Unavailable PROBLEMS Type Condition ICD9-CM Code [id number] Code Onset Dates Condition Status SNOMED Code Problem Personal history of tobacco use, presenting hazards to health V15.82 Active 3341162506960 Problem Solitary pulmonary nodule 793.11 Active 810269523 Problem Other dyspnea and respiratory abnormalities 786.09 Active 733099051 Problem Chest pain, unspecified 786.50 Active 90656509 Problem Shortness of breath 786.05 Active 481702761 Problem Undiagnosed cardiac murmurs 785.2 Active 937468263 Problem Pain in soft tissues of limb 729.5 Active 59352860 Problem Unspecified myalgia and myositis 729.1 Active 309024734 Problem Pain in joint, forearm 719.43 Active 003081440 Problem Type 2 diabetes mellitus without complication E11.9 Active 40630666 Problem Hidradenitis 705.83 Active 90118931 Problem Cardiac murmur, unspecified R01.1 Active 761506780 Problem Unspecified hypertrophic and atrophic condition of skin 701.9 Active 216748551 Problem Essential (primary) hypertension I10 Active 70063359 Problem Type 2 diabetes mellitus with hyperglycemia E11.65 Active 422116622837277 Problem Pure hyperglyceridemia E78.1 Active 682137227 Problem Chronic obstructive pulmonary disease, unspecified COPD type J44.9 Active 71862771 Problem Essential hypertension I10 Active 75543142 Problem Essential hypertension, benign 401.1 Active 5235016 Problem Unspecified essential hypertension 401.9 Active 74129488 Problem Coronary atherosclerosis of unspecified type of vessel, [place] or graft 414.00 Active 356633630 Problem Restless legs syndrome G25.81 Active 17047590 Problem Type 2 diabetes mellitus with diabetic neuropathy, unspecified E11.40 Active 0677679089581 Problem DM neuro manif type II E11.40 Active 656001912 Problem Fibromyalgia M79.7 Active 902667019 Problem Other and unspecified hyperlipidemia 272.4 Active 51566918 Problem Pure hyperglyceridemia 272.1 Active 658192003 Problem Depressive disorder, not elsewhere classified 311 Active 87852851 Problem Nondependent tobacco use disorder 305.1 Active 919365894 Problem Hypomagnesemia 275.2 Active 063722739 Problem Diabetic neuropathy 250.60 Active 020369819 Problem Diabetes mellitus without mention of complication, type II or unspecified type, uncontrolled 250.02 Active 845750026 Problem Restless legs syndrome [RLS] 333.94 Active 25232202 ALLERGIES No Information SOCIAL HISTORY Never Assessed PLAN OF CARE VITAL SIGNS MEDICATIONS Medication Instructions Dosage Frequency Start Date End Date Duration Status Lyrica 150 MG TAKE ONE CAPSULE BY MOUTH TWICE DAILY 30 Active RESULTS No Results PROCEDURES No Known procedures IMMUNIZATIONS No Known Immunizations MEDICAL (GENERAL) HISTORY Type Description Date Medical History Atherosclerotic heart disease of [place] coronary artery without angina pectoris Medical History [...]
--- OUTSIDE RECORDS SUMMARY | 2019-02-01 09:21 | XMS REPORT ---
Author [facility] [place] Address [address] [place] [address] Care Team Providers Care Survey Project Manager Name Role Phone ALYSJ Unavailable PROBLEMS Type Condition ICD9-CM Code HZW39-CB Code Onset Dates Condition Status SNOMED Code Problem Essential (primary) hypertension I10 Active 84668850 Problem Type 2 diabetes mellitus with hyperglycemia E11.65 Active 097092431507641 Problem Pure hyperglyceridemia E78.1 Active 715884313 Problem Chronic obstructive pulmonary disease, unspecified COPD type J44.9 Active 85639523 Problem Essential hypertension I10 Active 88275170 Problem Restless legs syndrome G25.81 Active 06306968 Problem Type 2 diabetes mellitus with diabetic neuropathy, unspecified E11.40 Active 1069950595482 Problem DM neuro manif type II E11.40 Active 130055086 Problem Fibromyalgia M79.7 Active 353930210 Problem Solitary pulmonary nodule 793.11 Active 134296432 Problem Unspecified hypertrophic and atrophic condition of skin 701.9 Active 062671058 Problem Hypomagnesemia 275.2 Active 159588824 Problem Diabetic neuropathy 250.60 Active 928889074 Problem Coronary atherosclerosis of unspecified type of vessel, tonawanda or graft 414.00 Active 209222706 Problem Type 2 diabetes mellitus without complication E11.9 Active 39188858 Problem Depressive disorder, not elsewhere classified 311 Active 76618449 Problem Cardiac murmur, unspecified R01.1 Active 696676455 ALLERGIES Substance Reaction Event Type Date Status Hydrocodone-Acetaminophen itching Drug Allergy Apr, Active Acetaminophen-Codeine #3 itching Drug Allergy Apr, Active ENCOUNTERS Encounter Location Date Diagnosis [facility] [place] [address] [facility] [address] [id number] [place] [id number] Feb, [facility] [place] [address] [facility] [address] [id number] [place] [id number] Nov, [facility] [place] [address] [facility] [address] [id number] [place] [address] Nov, Type 2 diabetes mellitus with hyperglycemia E11.65 [facility] [address] [facility] [id number] [place] [address] Nov, Essential hypertension I10 [facility] [place] [address] [facility] [address] [id number] [place] [id number] Oct, Restless legs syndrome G25.81 [facility] [place] [address] [facility] [address] [id number] [place] [id number] Aug, Type 2 diabetes mellitus with hyperglycemia E11.65 ; Restless legs syndrome G25.81 ; Fibromyalgia M79.7 ; Essential hypertension I10 and Urinary urgency R39.15 [facility] [place] [address] [facility] [address] [id number] [place] [id number] May, [facility] [place] [address] [place] [address] [address] [id number] [place] [id number] May, Type 2 diabetes mellitus with hyperglycemia E11.65 [facility] [place] [address] [facility] [address] [id number] [place] [id number] May, [facility] [place] [address] [place] [address] [address] [id number] [place] [id number] Apr, Type 2 diabetes mellitus with hyperglycemia E11.65 [facility] [place] [address] [facility] [address] [id number] [place] [address] Apr, [facility] [place] [address] [place] [address] [address] [id number] [place] [id number] Apr, Hospital discharge follow-up Z09 ; Cardiac murmur, unspecified R01.1 ; Tobacco abuse Z72.0 and Chronic obstructive pulmonary disease, unspecified COPD type J44.9 [facility] [place] [address] [facility] [address] [id number] [place] [id number] Mar, Type 2 diabetes mellitus with hyperglycemia E11.65 [facility] [place] [address] [facility] [address] [id number] [place] [address] Feb, Type 2 diabetes mellitus with hyperglycemia E11.65 and Essential hypertension I10 [facility] [place] [address] [facility] [address] [id number] [place] [address] Feb, Restless legs syndrome G25.81 ; Type 2 diabetes mellitus with hyperglycemia E11.65 ; Essential hypertension I10 and Right upper quadrant pain R10.11 [facility] [place] [address] [facility] [address] [id number] [place] [address] Feb, [facility] [place] [address] [facility] [address] [id number] [place] [id number] Feb, [facility] [place] [address] [facility] [address] [id number] [place] [address] Jan, Type 2 diabetes mellitus with hyperglycemia E11.65 and Right sided abdominal pain R10.9 [facility] [place] [address] [facility] [address] [id number] [place] [id number] Jan, [facility] [place] [address] [facility] [address] [id number] [place] [id number] Jan, Nausea R11.0 ; Essential hypertension I10 and Dizziness R42 [facility] [place] [address] [place] [address] [address] [id number] [place] [address] Jan, [facility] [place] [address] [facility] [address] [id number] [place] [address]18[address] Nov, [facility] [place] [address] [facility] [address] [id number] [place] [id number] Nov, [facility] [place] [address] [place] [address] [address] [id number] [place] [address]45[address] Oct, [facility] [place] [address] [place] [address] [address] [id number] [place] [id number] Oct, [facility] [place] [address] [place] [address] [address] [id number] [place] [address]98[address] Oct, [facility] [place] [address] [facility] [address] [id number] [place] [id number] Sep, [facility] [address] [facility] [id number] [place] [address] Sep, Ganglion of tendon M67.40 and DM neuro manif type II E11.40 [facility] [place] [address] [place] [address] [address] [id number] [place] [address] Aug, Pure hyperglyceridemia E78.1 [facility] [place] [address] [facility] [address] [id number] [place] [address] Aug, [facility] [place] [address] [id number] [place] [address] Aug, [facility] [place] [address] [id number] [place] [id number] Aug, [facility] [place] [address] [id number] [place] [address] Aug, Fibromyalgia M79.7 [facility] [place] [address] [id number] [place] [id number] Aug, [facility] [place] [address] [id number] [place] [address] Aug, Fibromyalgia M79.7 [facility] [place] [address] [id number] [place] [address] Aug, Fibromyalgia M79.7 ; Mass of right foot R22.41 and Type 2 diabetes mellitus with hyperglycemia E11.65 [facility] [place] [address] [id number] [place] [address] Jun, [facility] [place] [address] [id number] [place] [address] Jun, Furuncle L02.92 and Methicillin resistant Staph aureus culture positive Z22.322 [facility] [place] [address] [id number] [place] [address] Jun, Furuncle L02.92 ; Cellulitis of other specified site L03.818 and Methicillin resistant Staph aureus culture positive Z22.322 [facility] [place] [address] [id number] [place] [address] Jun, [facility] [place] [address] [id number] [place] [address] Jun, Furuncle L02.92 and Cellulitis of other specified site L03.818 [facility] [place] [address] [id number] [place] [address] May, Pure hyperglyceridemia E78.1 ; Abscess L02.91 ; Restless legs syndrome G25.81 and Type 2 diabetes mellitus with hyperglycemia E11.65 [facility] [place] [address] [facility] [address] [id number] [place] [address] May, [facility] [place] [address] [facility] [address] [id number] [place] [id number] May, [facility] [place] [address] [facility] [address] [id number] [place] [id number] May, [facility] [place] [address] [facility] [address] [id number] [place] 6[address]96 Apr, [facility] [place] [address] [facility] [address] [id number] [place] [address] Mar, Well woman exam Z01.419 ; Encounter for screening mammogram for breast cancer Z12.31 and History of cervical cancer Z85.41 [facility] [place] [address] [facility] [address] [id number] [place] [address] Mar, Insect bite, multiple W57.XXXA ; Type 2 diabetes mellitus with diabetic neuropathy, unspecified E11.40 ; Essential (primary) hypertension I10 ; DM neuro manif type II E11.40 and Restless legs syndrome G25.81 [facility] [place] [address] [facility] [address] [id number] [place] [address] Feb, [facility] [place] [address] [facility] [address] [id number] [place] [id number] Feb, [facility] [place] [address] [facility] [address] [id number] [place] [id number] Feb, [facility] [place] [address] [facility] [address] [id number] [place] [address] Jan, [facility] [place] [address] [facility] [address] [id number] [place] [address] Jan, [facility] [place] [address] [facility] [address] [id number] [place] 77[address]125 Jan, Abscess L02.91 [facility] [place] [address] [facility] [address] [id number] [place] [id number] December, DM neuro manif type II E11.40 ; Pure hyperglyceridemia E78.1 ; Essential (primary) hypertension I10 and Type 2 diabetes mellitus without complication E11.9 [facility] [place] [address] [facility] [address] [id number] [place] [address]4680[address] Oct, [facility] [place] [address] [facility] [address] [id number] [place] [address]223 Sep, [facility] [place] [address] [facility] [address] [id number] [place] 444893555 Sep, [facility] [place] [address] [facility] [address] [id number] [place] [address] Sep, [facility] [place] [address] [facility] [address] [id number] [place] 63[address] Sep, Type 2 diabetes mellitus without complication E11.9 ; Pure hyperglyceridemia E78.1 ; Cardiac murmur, unspecified R01.1 and Essential (primary) hypertension I10 [facility] [place] [address] [facility] [address] [id number] [place] [id number] Aug, [facility] [place] [address] [facility] [address] [id number] [place] [id number] Jul, [facility] [place] [address] [facility] [address] [id number] [place] [address] Jul, [facility] [place] [address] [facility] [address] [id number] [place] 95[address]404 Jun, [facility] [place] [address] [facility] [address] [id number] [place] 6[address]198464 Jun, [facility] [place] [address] [facility] [address] [id number] [place] [id number] May, [facility] [place] [address] [facility] [address] [id number] [place] 668174216 May, [facility] [place] [address] [facility] [address] [id number] [place] [id number] May, [facility] [place] [address] [facility] [address] [id number] [place] 534161662 May, [facility] [place] [address] [facility] [address] [id number] [place] [id number] May, [facility] [place] [address] [facility] [address] [id number] [place] [id number] May, [facility] [place] [address] [place] [address] C [id number] [place] 324905045 Apr, Onychomycosis 110.1 [facility] [place] [address] [place] [address] C [id number] [place] [id number] Apr, [facility] [place] [address] [place] [address] C [id number] [place] [id number] 14 Apr, 2015 Nail dystrophy 703.8 [facility] [place] [address] [place] [address] C [id number] [place] [id number] 08 Apr, 2015 Ingrown nail 703.0 [facility] [place] [address] [place] [address] C [id number] [place] [id number] 04 Apr, 2015 Ingrown nail 703.0 [facility] [place] [address] [place] [address] C [id number] [place] [id number] Mar, [facility] [place] [address] [place] [address] C [id number] [place] [address]98[address] Mar, Diabetic neuropathy 250.60 ; Fibromyalgia 729.1 and Lumbago 724.2 [facility] [place] [address] [place] [address] C [id number] [place] [id number] Mar, [facility] [place] [address] [place] [address] C [id number] [place] [id number] Jan, Diabetes mellitus without mention of complication, type II or unspecified type, uncontrolled 250.02 and Hypomagnesemia 275.2 [facility] [place] [address] [place] [address] C [id number] [place] [id number] Jan, [facility] [place] [address] [place] [address] C [id number] [place] 497627593 Jan, Coronary atherosclerosis of unspecified type of vessel, tonawanda or graft 414.00 ; Essential hypertension, benign 401.1 ; Other and unspecified hyperlipidemia 272.4 ; Diabetes mellitus without mention of complication, type II or unspecified type, uncontrolled 250.02 ; Depressive disorder, not elsewhere classified 311 and Restless legs syndrome [RLS] 333.94 [facility] [place] [address] [place] [address] C [id number] [place] 824965748 Jan, [facility] [place] [address] [id number] [place] [id number] December, Sciatica 724.3 ; Muscle spasm 728.85 ; UTI (urinary tract infection) 599.0 and Dysuria 788.1 [facility] [place] [address] [id number] [place] 722391755 December, [facility] [place] [address] [facility] [address] [id number] [place] 8135[address]379 December, Scabies 133.0 and Leg pain 729.5 [facility] [address] [facility] [id number] [place] [address] Nov, [facility] [address] [facility] [id number] [place] [address] Nov, [facility] [place] [address] [facility] [address] [id number] [place] [id number] Aug, [facility] [address] [facility] [facility] [id number] [place] [address] Aug, [facility] [place] [address] [facility] [address] [id number] [place] [id number] Jul, [facility] [address] [facility] [id number] [place] [address] Jul, [facility] [place] [address] [facility] [address] [id number] [place] [id number] Jul, [facility] [address] [facility] [id number] [place] [address] Jul, [facility] [place] [address] [facility] [address] [id number] [place] [id number] Jul, [facility] [address] [facility] [id number] [place] [address] Jul, [facility] [place] [address] [facility] [address] [id number] [place] 898021147 Jun, [facility] [address] [facility] [facility] [id number] [place] [address] Jun, [facility] [place] [address] [id number] [place] [address]78148009 Jun, [facility] [place] [facility] [address] [facility] [facility] [id number] [facility] [address] Jun, [facility] [place] [address] [facility] [address] [id number] [place] [id number] May, [facility] [place] [facility] [address] [facility] [id number] [place] [address] May, [facility] [place] [facility] [address] [facility] [id number] [place] [address] Apr, [facility] [place] [facility] [address] [facility] [id number] [place] [address] Apr, [facility] [place] [address] [facility] [address] [id number] [place] 8[place]40[place] Apr, [facility] [place] [facility] [address] [facility] [id number] [place] [address] Apr, [facility] [place] [address] [facility] [address] [id number] [place] 181624197 Apr, [facility] [place] [facility] [address] [facility] [id number] [place] [address] Apr, [facility] [place] [facility] [address] [facility] [id number] [place] [address] Apr, [facility] [place] [address] [facility] [address] [id number] [place] 766299227 Apr, [facility] [place] [facility] [address] [facility] [id number] [place] [address] Apr, [facility] [place] [address] [id number] [place] [id number] Apr, [facility] [place] [facility] [address] [facility] [id number] [place] [address] Apr, [facility] [place] [facility] [address] [facility] [address] [id number] [place] [address] 10 Apr, 2014 [facility] [place] [address] [id number] [place] 977201327 Apr, [facility] [place] [address] [id number] [place] 668276893 Apr, [facility] [place] [facility] [address] [id number] [place] [address] Apr, [facility] [place] [facility] [address] [id number] [place] [address] Apr, [facility] [place] [address] [facility] [address] [id number] [place] 749390809 Mar, [facility] [place] [facility] [address] [id number] [place] [address] Mar, [facility] [place] [address] [facility] [address] [id number] [place] 845100301 Mar, [facility] [place] [facility] [address] [facility] [id number] [place] [address] Mar, [facility] [place] [address] [facility] [address] [id number] [place] [id number] Feb, [facility] [place] [facility] [address] [id number] [place] [address] Feb, [facility] [place] [address] [facility] [address] [id number] [place] 747397709 December, [facility] [place] [facility] [address] [id number] [place] [address] December, [facility] [place] [address] [facility] [address] [id number] [place] [id number] December, [facility] [place] [facility] [address] [id number] [place] [address] December, [facility] [place] [address] [id number] [place] 766875302 Nov, [facility] [place] [facility] [address] [id number] [place] [address] Nov, [facility] [place] [address] [facility] [address] [id number] [place] [id number] Nov, [facility] [place] [facility] [address] [id number] [place] [address] Nov, [facility] [place] [address] [id number] [place] 235513856 Nov, [facility] [place] [facility] [address] [id number] [place] [address] Nov, [facility] [place] [facility] [address] [id number] [place] [address] Oct, [facility] [place] [facility] [address] [id number] [place] [address] Oct, [facility] [place] [facility] [address] [id number] [place] [address] Aug, [facility] [place] [facility] [address] [id number] [place] [address] Aug, [facility] [place] [address] [facility] [address] [id number] [place] 430717859 Aug, [facility] [place] [facility] [address] [id number] [place] [address] Aug, [facility] [place] [facility] [address] [id number] [place] [address] Aug, [facility] [place] [facility] [address] [id number] [place] [address] Aug, [facility] [place] [address] [id number] [place] 075113673 Jul, [facility] [place] [facility] [address] [id number] [place] [address] Jul, [facility] [place] [facility] [address] [id number] [place] [address] Jul, [facility] [place] [facility] [address] [id number] [place] [address] Jul, [facility] [place] [facility] [address] [id number] [place] [address] Jun, [facility] [place] [facility] [address] [id number] [place] [address] Jun, [facility] [place] [facility] [address] [id number] [place] [address] Jun, [facility] [place] [facility] [address] [id number] [place] [address] Jun, [facility] [place] [facility] [address] [id number] [place] [address] 08 Jun, 2013 [facility] [place] [facility] [address] [id number] [place] [address] Jun, [facility] [place] [facility] [address] [id number] [place] [address] Jun, [facility] [place] [facility] [address] [id number] [place] [address] Jun, [facility] [place] [facility] [address] [id number] [place] [address] 06 Jun, 2013 [facility] [place] [facility] [address] [id number] [place] [address] 18 May, 2013 [facility] [place] [facility] [address] [id number] [place] [address] 18 May, 2013 [facility] [place] [facility] [address] [id number], [place] [address] 16 May, 2013 [facility] [place] [facility] [address] [id number] [address] 16 May, 2013 [facility] [place] [facility] [address] [id number] [place] [address] 14 May, 2013 [facility] [place] [facility] [address] [id number], [place] [address] 14 May, 2013 [facility] [place] [facility] [address] [id number] [place] [address] 04 May, 2013 [facility] [place] [facility] [address] [id number] [place] [address] 04 Apr, 2013 [facility] [address] [id number] [place] [address] Mar, [facility] [address] [id number] [place] [address] Mar, [facility] [address] [id number] [place] [address] Mar, [facility] [address] [id number] [place] [address] Mar, [facility] [address] [id number] [place] [address] Feb, [facility] [address] [id number] [place] [address] Feb, [facility] [address] [facility] [address] [id number] [place] [address] Feb, [facility] [address] [id number] [place] [address] Feb, [facility] [address] [facility] [address] [id number] [place] [address] Feb, [facility] [address] [facility] [address] [id number], [place] [address] Feb, [facility] [address] [facility] [address] [id number], [place] [address] Jan, [facility] [address] [facility] [address] [id number], [place] [address] Jan, [facility] [address] [facility] [address] [id number], [place] [address] 17 Jan, 2013 [facility] [address] [facility] [address] [id number], [place] [address] 13 Jan, 2013 IMMUNIZATIONS No Known Immunizations SOCIAL HISTORY Never Assessed REASON FOR VISIT Hospital f/[facility] PLAN OF CARE Activity Details Follow Up prn, 2 - 3 Days Reason: VITAL SIGNS Height 63 in 2017-04-27 Weight 164.8 lbs 2017-04-27 Temperature 98.6 degrees Fahrenheit 2017-04-27 Heart Rate 80 bpm 2017-04-27 Respiratory Rate 16 2017-04-27 BMI 29.19 kg/m2 2017-04-27 Blood pressure systolic 138 mmHg 2017-04-27 Blood pressure diastolic 76 mmHg 2017-04-27 MEDICATIONS Medication Instructions Dosage Frequency Start Date End Date Duration Status Advair Diskus 250-50 MCG/DOSE by inhalation route Twice a day 1 puff 12h Active Magnesium 250 MG Orally Once a day 1 tablet with a meal 24h Active Atorvastatin Calcium 40 mg Orally Once a day 1 tablet 24h May, Active Ropinirole HCl 0.5 MG Orally HS 3 tablets Jun, Active Ventolin HFA 90 MCG/ACT Inhalation every 4 hrs 2 puffs as needed 4h Active Lisinopril 2.5 MG Orally Once a day 1 tablet 24h 90 days Active Pantoprazole Sodium 40 MG Orally Once a day 1 tablet 24h Active Azithromycin 500 MG Active Metoprolol Tartrate 100 mg Orally Twice a day 1/2 tablet 12h Aug, Active Duloxetine HCl 60 MG Orally Once a day 1 capsule 24h Active MetFORMIN HCl ER 500 mg Orally 2 times a day 1 tablet with evening meal 12h Jan, 30 day(s) Active RESULTS No Results PROCEDURES No Known procedures INSTRUCTIONS MEDICATIONS ADMINISTERED No Known Medications MEDICAL (GENERAL) HISTORY Type Description Date Medical History Atherosclerotic heart disease of [place] coronary artery without angina pectoris Medical History [...]
--- OUTSIDE RECORDS SUMMARY | 2019-02-01 09:21 | XMS REPORT ---
Author EDUARDO Myers [facility] eClinicalWorks Address Unknown Phone Unavailable Care Team Providers Care Vapor Coater Name Role Phone EDUARDO WEBB CP Unavailable Allergies No Known Allergies Problems Problem Type Condition Code Onset Dates Condition Status Problem Pure hyperglyceridemia 272.1 Active Problem Other dyspnea and respiratory abnormalities 786.09 Active Problem Solitary pulmonary nodule 793.11 Active Problem Hypomagnesemia 275.2 Active Problem Diabetes mellitus without mention of complication, type II or unspecified type, uncontrolled 250.02 Active Problem DM neuro manif type II E11.40 Active Problem Depressive disorder, not elsewhere classified 311 Active Problem Restless legs syndrome [RLS] 333.94 Active Problem Diabetic neuropathy 250.60 Active Problem Personal history of tobacco use, presenting hazards to health V15.82 Active Problem Hidradenitis 705.83 Active Problem Undiagnosed cardiac murmurs 785.2 Active Problem Coronary atherosclerosis of unspecified type of vessel, [place] or graft 414.00 Active Problem Chest pain, unspecified 786.50 Active Problem Unspecified hypertrophic and atrophic condition of skin 701.9 Active Problem Unspecified myalgia and myositis 729.1 Active Problem Nondependent tobacco use disorder 305.1 Active Problem Essential hypertension, benign 401.1 Active Problem Pain in soft tissues of limb 729.5 Active Problem Unspecified essential hypertension 401.9 Active Problem Pain in joint, forearm 719.43 Active Problem Other and unspecified hyperlipidemia 272.4 Active Problem Shortness of breath 786.05 Active Medications Medication Code System Code Instructions Start Date End Date Status Dosage Crestor [facility] [address]-94 20 MG Orally May 11, 2014 2 tablet by Oral route 1 time per day Results No Known Results Summary Purpose eClinicalWorks Submission
--- OUTSIDE RECORDS SUMMARY | 2019-02-01 09:21 | XMS REPORT ---
Author EDUARDO Myers [facility] eClinicalWorks Address Unknown Phone Unavailable Care Team Providers Care Production Support Developer Name Role Phone EDUARDO WEBB CP Unavailable Allergies, Adverse Reactions, Alerts Substance Reaction Event Type Hydrocodone-Acetaminophen itching Drug Allergy Acetaminophen-Codeine #3 itching Drug Allergy Problems Problem Type Condition Code Onset Dates Condition Status Assessment DM neuro manif type II E11.40 Active Assessment Restless legs syndrome G25.81 Active Assessment Type 2 diabetes mellitus with diabetic neuropathy, unspecified E11.40 Active Assessment Essential (primary) hypertension I10 Active Assessment Insect bite, multiple W57.XXXA Active Problem Restless legs syndrome [RLS] 333.94 [...] Coronary atherosclerosis of unspecified type of vessel, [place] or graft 414.00 Active Problem Chest pain, [...] Instructions Start Date End Date Status Dosage Cymbalta [facility] [address]-02 60 mg November 28, 2013 1 Capsule by Oral route 1 time per day Ventolin HFA [facility] [address]-86 90 MCG/ACT Inhalation every 4 hrs 2 puffs as needed Aspirin [facility] [address]-35 81 mg January 27, 2013 1 tablet by Oral route 1 time per day metformin [facility] [address]-28 1,000 mg Aug 04, 2014 take 1 tablet by Oral route 2 times per day Metoprolol Tartrate [facility] [address]-23 50 mg November 28, 2013 take 1 tablet by Oral route 2 times per day Gabapentin [facility] [address]-43 600 MG Orally Three times a day January 03, 2015 1 tablet Lisinopril [facility] [address]-27 2.5 MG Orally Once a day 1 tablet Advair Diskus [facility] [address]-02 250-50 MCG/DOSE by inhalation route Twice a day 1 puff Toprol XL [facility] [address]-45 100 MG Orally Sep 05, 2014 take 1 tablet by Oral route 1 time per day Requip [facility] [address]-87 0.5 MG Sep 05, 2014 3 tablet by Oral route 1 time per day 1-3 hours before HS PredniSONE [facility] [address]-22 20 mg Orally Once a day Mar 17, 2016 2 tabs daily x 4 days then 1 tab daily x 4 days BusPIRone HCl [facility] [address]-83 10 mg Orally Twice a day March 11, 2016 Take 1 tablet Procedures Procedure Coding System Code Date Office Visit, Est Pt., Level 4 CPT-4 65809 Mar 17, 2016 Vital Signs Date/Time: Mar 17, 2016 Cardiac Monitoring Heart Rate 72 bpm Weight 161.4 lbs Height 63 in BMI 28.59 Index Blood Pressure Diastolic 58 mmHg Blood Pressure Systolic 106 mmHg Results No Known Results Summary Purpose eClinicalWorks Submission
--- OUTSIDE RECORDS SUMMARY | 2019-02-01 09:22 | XMS REPORT ---
Author SJ Hammond Organization eClinicalWorks Address Unknown Phone Unavailable Care Team Providers Care Private Security Guard Name Role Phone SJ ALY CP Unavailable Allergies No Known Allergies Problems [...] Coronary atherosclerosis of unspecified type of vessel, [place] or graft 414.00 Active Problem Personal history [...] Instructions Start Date End Date Status Dosage Gabapentin [facility] [address]-59 600 MG Orally Three times a day January 03, 2015 1 tablet Results No Known Results Summary Purpose eClinicalWorks Submission
--- OUTSIDE RECORDS SUMMARY | 2019-02-01 09:22 | XMS REPORT ---
Author JEAN-PIERRE Smith Organization eClinicalWorks Address Unknown Phone Unavailable Care Team Providers Care Herbarium Worker Name Role Phone JEAN-PIERRE PARRISH CP Unavailable [...] Coronary atherosclerosis of unspecified type of vessel, [place] or graft 414.00 Active Problem Chest pain, [...] Problem Shortness of breath 786.05 Active Medications No Known Medications Results No Known Results Summary Purpose eClinicalWorks Submission
--- OUTSIDE RECORDS SUMMARY | 2019-02-01 09:22 | XMS REPORT ---
Author JEAN-PIERRE Smith Organization eClinicalWorks Address Unknown Phone Unavailable Care Team Providers Care Hydraulic Jack Operator Name Role Phone JEAN-PIERRE PARRISH CP Unavailable [...] Coronary atherosclerosis of unspecified type of vessel, [place] or graft 414.00 Active Problem Chest pain, [...] Start Date End Date Status Dosage Gabapentin [facility] [address]-00 600 MG Orally Three times a day January 03, 2015 1 tablet Results No Known Results Summary Purpose eClinicalWorks Submission
--- OUTSIDE RECORDS SUMMARY | 2019-02-01 09:22 | XMS REPORT ---
Author EDUARDO Meyrs eClinicalWorks Address Unknown Phone Unavailable Care Team Providers Care Hub Lead Name Role Phone EDUARDO WEBB CP Unavailable Allergies, Adverse Reactions, Alerts Substance Reaction Event Type Hydrocodone-Acetaminophen itching Drug Allergy Acetaminophen-Codeine #3 itching Drug Allergy Problems Problem Type Condition Code Onset Dates Condition Status Assessment Encounter for screening mammogram for breast cancer Z12.31 Active Assessment History of cervical cancer Z85.41 Active Assessment Well woman exam Z01.419 Active Problem Restless legs syndrome [RLS] 333.94 [...] Coronary atherosclerosis of unspecified type of vessel, [place] or graft 414.00 Active Problem Chest pain, [...] Start Date End Date Status Dosage Gabapentin [facility] [address]-43 600 MG Orally Three times a day January 03, 2015 1 tablet Ventolin HFA [facility] [address]-43 90 MCG/ACT Inhalation every 4 hrs 2 puffs as needed Cymbalta [facility] [address]-24 60 mg November 28, 2013 1 Capsule by Oral route 1 time per day Requip [facility] [address]-46 0.5 MG Sep 05, 2014 3 tablet by Oral route 1 time per day 1-3 hours before HS PredniSONE [facility] [address]-46 20 mg Orally Once a day Mar 17, 2016 2 tabs daily x 4 days then 1 tab daily x 4 days Advair Diskus [facility] [address]-85 250-50 MCG/DOSE by inhalation route Twice a day 1 puff Toprol XL [facility] [address]-15 100 MG Orally Sep 05, 2014 take 1 tablet by Oral route 1 time per day Aspirin [facility] [address]-97 81 mg January 27, 2013 1 tablet by Oral route 1 time per day Lisinopril [facility] [address]-98 2.5 MG Orally Once a day 1 tablet Metoprolol Tartrate [facility] [address]-01 50 mg November 28, 2013 take 1 tablet by Oral route 2 times per day metformin [facility] [address]-84 1,000 mg Aug 04, 2014 take 1 tablet by Oral route 2 times per day BusPIRone HCl [facility] [address]-73 10 mg Orally Twice a day March 11, 2016 Take 1 tablet Procedures Procedure Coding System Code Date SPECIMEN HANDLING CPT-4 61526 Mar 24, 2016 Preventive Care Est Pt. Age 40-64 CPT-4 69687 Mar 24, 2016 Vital Signs Date/Time: Mar 24, 2016 Cardiac Monitoring Heart Rate 88 bpm Weight 166.4 lbs Height 63 in BMI 29.47 Index Blood Pressure Diastolic 72 mmHg Blood Pressure Systolic 120 mmHg Results No Known Results Summary Purpose eClinicalWorks Submission
--- OUTSIDE RECORDS SUMMARY | 2019-02-01 09:22 | XMS REPORT ---
Author Author SJ ALY [facility] Address [address] [place] [address] Care Team Providers Care Ham Doctor Name Role Phone ALYSJ Unavailable PROBLEMS Type Condition ICD9-CM Code MUY72-OB Code Onset Dates Condition Status SNOMED Code Problem Solitary pulmonary nodule 793.11 Active 701595269 Problem Chest pain, unspecified 786.50 Active 46062771 Problem Personal history of tobacco use, presenting hazards to health V15.82 Active 5034416420336 Problem Other dyspnea and respiratory abnormalities 786.09 Active 658221889 Problem Shortness of breath 786.05 Active 230290040 Problem Undiagnosed cardiac murmurs 785.2 Active 590946720 Problem Pain in soft tissues of limb 729.5 Active 04695724 Problem Unspecified myalgia and myositis 729.1 Active 173944354 Problem Diabetic neuropathy 250.60 Active 632815230 Problem Pain in joint, forearm 719.43 Active 565534083 Problem Type 2 diabetes mellitus without complication E11.9 Active 58587132 Problem Hidradenitis 705.83 Active 41231617 Problem Cardiac murmur, unspecified R01.1 Active 715462310 Problem Pure hyperglyceridemia E78.1 Active 922716977 Problem Essential (primary) hypertension I10 Active 90064248 Problem Essential hypertension I10 Active 10934699 Problem DM neuro manif type II E11.40 Active 698302515 Problem Unspecified essential hypertension 401.9 Active 72783444 Problem Coronary atherosclerosis of unspecified type of vessel, [place] or graft 414.00 Active 770242903 Problem Unspecified hypertrophic and atrophic condition of skin 701.9 Active 135960170 Problem Type 2 diabetes mellitus with diabetic neuropathy, unspecified E11.40 Active 3532153514494 Problem Type 2 diabetes mellitus with hyperglycemia E11.65 Active 421117349420901 Problem Fibromyalgia M79.7 Active 265548600 Problem Restless legs syndrome G25.81 Active 92359272 Problem Nondependent tobacco use disorder 305.1 Active 558748785 Problem Other and unspecified hyperlipidemia 272.4 Active 03548884 Problem Essential hypertension, benign 401.1 Active 1229043 Problem Depressive disorder, not elsewhere classified 311 Active 76032663 Problem Restless legs syndrome [RLS] 333.94 Active 77946504 Problem Hypomagnesemia 275.2 Active 476717013 Problem Pure hyperglyceridemia 272.1 Active 086621651 Problem Diabetes mellitus without mention of complication, type II or unspecified type, uncontrolled 250.02 Active 266047017 ALLERGIES Substance Reaction Event Type Date Status Hydrocodone-Acetaminophen itching Drug Allergy Aug, Active Acetaminophen-Codeine #3 itching Drug Allergy Aug, Active SOCIAL HISTORY No smoking Hx information available PLAN OF CARE Activity Details Follow Up prn, 1 Week Reason:for DM visit VITAL SIGNS Height 63 in 2016-08-19 Weight 173.2 lbs 2016-08-19 Temperature 97.9 degrees Fahrenheit 2016-08-19 Heart Rate 76 bpm 2016-08-19 Respiratory Rate 16 2016-08-19 BMI 30.68 kg/m2 2016-08-19 Blood pressure systolic 156 mmHg 2016-08-19 Blood pressure diastolic 88 mmHg 2016-08-19 MEDICATIONS Medication Instructions Dosage Frequency Start Date End Date Duration Status BusPIRone HCl 10 mg Orally Twice a day Take 1 tablet 12h Feb, Active Ventolin HFA 90 MCG/ACT Inhalation every 4 hrs 2 puffs as needed 4h Active Lyrica 150 MG Orally Twice a day 1 capsule 12h Aug, Active Advair Diskus 250-50 MCG/DOSE by inhalation route Twice a day 1 puff 12h Active Cymbalta 60 mg 1 Capsule by Oral route 1 time per day Nov, Active Lisinopril 2.5 MG Orally Once a day 1 tablet 24h Active Ropinirole HCl 0.5 MG Orally @ HS 3 tablets Jun, Active Atorvastatin Calcium 40 mg Orally Once a day 1 tablet 24h May, Active Metoprolol Tartrate 50 mg take 1 tablet by Oral route 2 times per day Nov, Active RESULTS No Results PROCEDURES Procedure Date Ordered Related Diagnosis Body Site Office Visit, Est Pt., Level 3 Aug 19, 2016 IMMUNIZATIONS No Known Immunizations
--- OUTSIDE RECORDS SUMMARY | 2019-02-01 09:23 | XMS REPORT ---
Author EDUARDO Myers [facility] eClinicalWorks Address Unknown Phone Unavailable Care Team Providers Care Cage Manager Name Role Phone EDUARDO WEBB CP Unavailable Allergies No Known Allergies Problems Problem Type Condition Code Onset Dates Condition Status Problem Restless legs syndrome [RLS] 333.94 Active [...] [place] or graft 414.00 Active Problem Chest pain, [...] Instructions Start Date End Date Status Dosage Metoprolol Tartrate [facility] [address]-88 50 mg November 28, 2013 take 1 tablet by Oral route 2 times per day Results No Known Results Summary Purpose eClinicalWorks Submission
--- OUTSIDE RECORDS SUMMARY | 2019-02-01 09:23 | XMS REPORT ---
Author Author SJ ALY [facility] [place] Address [address] [place] [address] Care Team Providers Care Tack Puller Machine Name Role Phone ALYSJ Unavailable PROBLEMS Type Condition ICD9-CM Code WJT72-OS Code Onset Dates Condition Status SNOMED Code Problem Personal history of tobacco use, presenting hazards to health V15.82 Active 9195104687298 Problem Solitary pulmonary nodule 793.11 Active 398208435 Problem Other dyspnea and respiratory abnormalities 786.09 Active 949715232 Problem Chest pain, unspecified 786.50 Active 25035953 Problem Shortness of breath 786.05 Active 200839398 Problem Undiagnosed cardiac murmurs 785.2 Active 217306123 Problem Pain in soft tissues of limb 729.5 Active 79946648 Problem Unspecified myalgia and myositis 729.1 Active 477007254 Problem Pain in joint, forearm 719.43 Active 371967098 Problem Type 2 diabetes mellitus without complication E11.9 Active 85188689 Problem Hidradenitis 705.83 Active 86772179 Problem Cardiac murmur, unspecified R01.1 Active 264713658 Problem Unspecified hypertrophic and atrophic condition of skin 701.9 Active 635916074 Problem Essential (primary) hypertension I10 Active 14652551 Problem Type 2 diabetes mellitus with hyperglycemia E11.65 Active 271732557837510 Problem Pure hyperglyceridemia E78.1 Active 197330916 Problem Chronic obstructive pulmonary disease, unspecified COPD type J44.9 Active 24054878 Problem Essential hypertension I10 Active 34348641 Problem Essential hypertension, benign 401.1 Active 7896999 Problem Unspecified essential hypertension 401.9 Active 81044539 Problem Coronary atherosclerosis of unspecified type of vessel, unalak[place]et or graft 414.00 Active 664184561 Problem Restless legs syndrome G25.81 Active 87581187 Problem Type 2 diabetes mellitus with diabetic neuropathy, unspecified E11.40 Active 9896322351027 Problem DM neuro manif type II E11.40 Active 710290759 Problem Fibromyalgia M79.7 Active 678232419 Problem Other and unspecified hyperlipidemia 272.4 Active 58598028 Problem Pure hyperglyceridemia 272.1 Active 835868501 Problem Depressive disorder, not elsewhere classified 311 Active 35734532 Problem Nondependent tobacco use disorder 305.1 Active 377707801 Problem Hypomagnesemia 275.2 Active 954716830 Problem Diabetic neuropathy 250.60 Active 727022507 Problem Diabetes mellitus without mention of complication, type II or unspecified type, uncontrolled 250.02 Active 328450274 Problem Restless legs syndrome [RLS] 333.94 Active 59794095 ALLERGIES No Information ENCOUNTERS Encounter Location Date Diagnosis [facility] [place] [address] [place] [address] C [id number] [place] [id number] Nov, [facility] [place] [address] [place] [address] C [id number] [place] [id number] Oct, Restless legs syndrome G25.81 [facility] [place] [address] [place] [address] C [id number] [place] [id number] Aug, Type 2 diabetes mellitus with hyperglycemia E11.65 ; Restless legs syndrome G25.81 ; Fibromyalgia M79.7 ; Essential hypertension I10 and Urinary urgency R39.15 [facility] [place] [address] [facility] [address] [id number] [place] [id number] May, [facility] [place] [address] [place] [address] C [id number] [place] [id number] May, Type 2 diabetes mellitus with hyperglycemia E11.65 [facility] [place] [address] [place] [address] C [id number] [place] [id number] May, [facility] [place] [address] [place] [address] [address] [id number] [place] 550481052 Apr, Type 2 diabetes mellitus with hyperglycemia E11.65 [facility] [place] [address] [place] [address] [address] [id number] [place] [id number] Apr, [facility] [place] [address] [place] [address] C [id number] [place] [id number] 11 Apr, 2017 Hospital discharge follow-up Z09 ; Cardiac murmur, unspecified R01.1 ; Tobacco abuse Z72.0 and Chronic obstructive pulmonary disease, unspecified COPD type J44.9 [facility] [place] [address] [place] [address] [address] [id number] [place] [id number] Mar, Type 2 diabetes mellitus with hyperglycemia E11.65 [facility] [place] [address] [facility] [address] [id number] [place] [id number] Feb, Type 2 diabetes mellitus with hyperglycemia E11.65 and Essential hypertension I10 [facility] [place] [address] [facility] [address] [id number] [place] 964159273 Feb, Restless legs syndrome G25.81 ; Type 2 diabetes mellitus with hyperglycemia E11.65 ; Essential hypertension I10 and Right upper quadrant pain R10.11 [facility] [place] [address] [facility] [address] [id number] [place] [id number] Feb, [facility] [place] [address] [facility] [address] [id number] [place] 349227825 Feb, [facility] [place] [address] [facility] [address] [id number] [place] 927344078 Jan, Type 2 diabetes mellitus with hyperglycemia E11.65 and Right sided abdominal pain R10.9 [facility] [place] [address] [facility] [address] [id number] [place] [id number] Jan, [facility] [place] [address] [facility] [address] [id number] [place] 089509239 Jan, Nausea R11.0 ; Essential hypertension I10 and Dizziness R42 [facility] [place] [address] [facility] [address] [id number] [place] [id number] Jan, [facility] [place] [address] [facility] [address] [id number] [place] [id number] Nov, [facility] [place] [address] [facility] [address] [id number] [place] [id number] Nov, [facility] [place] [address] [facility] [address] [id number] [place] [id number] Oct, [facility] [place] [address] [facility] [address] [id number] [place] 859717931 Oct, [facility] [place] [address] [facility] [address] [id number] [place] 710455458 Oct, [facility] [place] [address] [facility] [address] [id number] [place] [id number] Sep, [facility] [address] [facility] [id number] [place] [address] 17 Sep, 2016 Ganglion of tendon M67.40 and DM neuro manif type II E11.40 [facility] [place] [address] [facility] [address] [id number] [place] 610648733 Aug, Pure hyperglyceridemia E78.1 [facility] [place] [address] [facility] [address] [id number] [place] [id number] Aug, [facility] [place] [address] [facility] [address] [id number] [place] [id number] Aug, [facility] [place] [address] [facility] [address] [id number] [place] 202229797 Aug, [facility] [place] [address] [facility] [address] [id number] [place] 289358345 Aug, Fibromyalgia M79.7 [facility] [place] [address] [facility] [address] [id number] [place] [id number] Aug, [facility] [place] [address] [facility] [address] [id number] [place] 077331863 Aug, Fibromyalgia M79.7 [facility] [place] [address] [facility] [address] [id number] [place] 260110095 Aug, Fibromyalgia M79.7 ; Mass of right foot R22.41 and Type 2 diabetes mellitus with hyperglycemia E11.65 [facility] [place] [address] [facility] [address] [id number] [place] [id number] Jun, [facility] [place] [address] [facility] [address] [id number] [place] 232306487 Jun, Furuncle L02.92 and Methicillin resistant Staph aureus culture positive Z22.322 [facility] [place] [address] [facility] [address] [id number] [place] 782255870 Jun, Furuncle L02.92 ; Cellulitis of other specified site L03.818 and Methicillin resistant Staph aureus culture positive Z22.322 [facility] [place] [address] [facility] [address] [id number] [place] [id number] Jun, [facility] [place] [address] [facility] [address] [id number] [place] 264198674 Jun, Furuncle L02.92 and Cellulitis of other specified site L03.818 [facility] [place] [address] [facility] [address] [id number] [place] 856413366 May, Pure hyperglyceridemia E78.1 ; Abscess L02.91 ; Restless legs syndrome G25.81 and Type 2 diabetes mellitus with hyperglycemia E11.65 [facility] [place] [address] [facility] [address] [id number] [place] [id number] May, [facility] [place] [address] [facility] [address] [id number] [place] 833621494 May, [facility] [place] [address] [facility] [address] [id number] [place] [id number] May, [facility] [place] [address] [facility] [address] [id number] [place] [id number] Apr, [facility] [place] [address] [place] [address] [address] [id number] [place] [id number] Mar, Well woman exam Z01.419 ; Encounter for screening mammogram for breast cancer Z12.31 and History of cervical cancer Z85.41 [facility] [place] [address] [place] [address] [address] [id number] [place] 552983460 Mar, Insect bite, multiple W57.XXXA ; Type 2 diabetes mellitus with diabetic neuropathy, unspecified E11.40 ; Essential (primary) hypertension I10 ; DM neuro manif type II E11.40 and Restless legs syndrome G25.81 [facility] [place] [address] [facility] [address] [id number] [place] 535143553 Feb, [facility] [place] [address] [facility] [address] [id number] [place] 135539824 Feb, [facility] [place] [address] [facility] [address] [id number] [place] 570318266 Feb, [facility] [place] [address] [facility] [address] [id number] [place] 248471700 Jan, [facility] [place] [address] [facility] [address] [id number] [place] 538118108 Jan, [facility] [place] [address] [facility] [address] [id number] [place] [id number] Jan, Abscess L02.91 [facility] [place] [address] [facility] [address] [id number] [place] [id number] December, DM neuro manif type II E11.40 ; Pure hyperglyceridemia E78.1 ; Essential (primary) hypertension I10 and Type 2 diabetes mellitus without complication E11.9 [facility] [place] [address] [facility] [address] [id number] [place] 235491693 Oct, [facility] [place] [address] [facility] [address] [id number] [place] 529693597 Sep, [facility] [place] [address] [facility] [address] [id number] [place] [id number] Sep, [facility] [place] [address] [facility] [address] [id number] [place] [id number] Sep, [facility] [place] [address] [facility] [address] [id number] [place] 452450145 Sep, Type 2 diabetes mellitus without complication E11.9 ; Pure hyperglyceridemia E78.1 ; Cardiac murmur, unspecified R01.1 and Essential (primary) hypertension I10 [facility] [place] [address] [facility] [address] [id number] [place] 277589958 Aug, [facility] [place] [address] [facility] [address] [id number] [place] 341191904 Jul, [facility] [place] [address] [facility] [address] [id number] [place] 647343525 Jul, [facility] [place] [address] [facility] [address] [id number] [place] [id number] Jun, [facility] [place] [address] [facility] [address] [id number] [place] 534364795 Jun, [facility] [place] [address] [facility] [address] [id number] [place] [id number] May, [facility] [place] [address] [facility] [address] [id number] [place] 214753979 May, [facility] [place] [address] [facility] [address] [id number] [place] [id number] May, [facility] [place] [address] [facility] [address] [id number] [place], [place] 915057931 May, [facility] [place] [address] [facility] [address] [id number] [place], [place] [id number] May, [facility] [place] [address] [place] [address] [address] [id number] [place] 123833305 May, [facility] [place] [address] [place] [address] [address] [id number] [place] [id number] Apr, Onychomycosis 110.1 [facility] [place] [address] [place] [address] [address] [id number] [place] [id number] Apr, [facility] [place] [address] [place] [address] [address] [id number] [place] 918834479 Apr, Nail dystrophy 703.8 [facility] [place] [address] [place] [address] [address] [id number] [place] [id number] 08 Apr, 2015 Ingrown nail 703.0 [facility] [place] [address] [place] [address] [address] [id number] [place] [id number] Apr, Ingrown nail 703.0 [facility] [place] [address] [place] [address] [address] [id number] [place] [id number] Mar, [facility] [place] [address] [place] [address] [address] [id number] [place], [place] [id number] Mar, Diabetic neuropathy 250.60 ; Fibromyalgia 729.1 and Lumbago 724.2 [facility] [place] [address] [place] [address] [address] [id number] [place], [place] [id number] Mar, [facility] [place] [address] [place] [address] [address] [id number] [place] [id number] Jan, Diabetes mellitus without mention of complication, type II or unspecified type, uncontrolled 250.02 and Hypomagnesemia 275.2 [facility] [place] [address] [place] [address] [address] [id number] [place] 917922174 Jan, [facility] [place] [address] [place] [address] [address] [id number] [place] 842932379 Jan, Coronary atherosclerosis of unspecified type of vessel, unalakleet or graft 414.00 ; Essential hypertension, benign 401.1 ; Other and unspecified hyperlipidemia 272.4 ; Diabetes mellitus without mention of complication, type II or unspecified type, uncontrolled 250.02 ; Depressive disorder, not elsewhere classified 311 and Restless legs syndrome [RLS] 333.94 [facility] [address] [place] [address] C [id number] [place] [id number] Jan, [facility] [place] [address] [place] [address] C [id number] [place], [place] 614727490 December, Sciatica 724.3 ; Muscle spasm 728.85 ; UTI (urinary tract infection) 599.0 and [facility]ysuria 788.1 [facility] [address] [place] [address] [address] [id number] [place] [id number] December, [facility] [address] [place] [address] C [id number] [place], [place] 240869816 December, Scabies 133.0 and Leg pain 729.5 [facility] [address] [id number] [address] Nov, [facility] [address] [address] Nov, [facility] [address] [place] [address] C [id number] [place] [id number] Aug, [facility] [address] [id number] [address] Aug, [facility] [place] [address] [place] [address] C [id number] [place] [id number] Jul, [facility] [address] [id number] [address] Jul, [facility] [address] [place] [address] C [id number] [place] [id number] Jul, [facility] [address] [id number] [address] Jul, [facility] [place] [address] [place] [address] [address] [id number] [place] 075184601 Jul, [facility] [place] [facility] [address] [id number] [facility] [address] Jul, [facility] [place] [address] [id number] [place] 049279987 Jun, [facility] [place] [facility] [address] [facility] [id number] [facility] [place] [address] Jun, [facility] [place] [address] [id number] [place] 036750955 Jun, [facility] [place] [facility] [address] [id number] [facility] [place] [address] Jun, [facility] [place] [address] [id number] [place] [id number] May, [facility] [place] [facility] [address] [facility] [id number] [place] [address] May, [facility] [place] [facility] [address] [id number] [place] [address] Apr, [facility] [place] [facility] [address] [id number] [place] [address] Apr, [facility] [place] [address] [facility] [address] [id number] [place] [id number] Apr, [facility] [place] [facility] [address] [facility] [id number] [place] [address] Apr, [facility] [place] [address] [facility] [address] [id number] [place] [id number] Apr, [facility] [place] [facility] [address] [id number] [facility] [place] [address] Apr, [facility] [place] [facility] [address] [id number] [place] [address] Apr, [facility] [place] [address] [id number] [place] [id number] Apr, [facility] [place] [facility] [address] [facility] [id number] [place] [address] Apr, [facility] [place] [address] [id number] [place] 693701642 Apr, [facility] [place] [facility] [address] [id number] [place] [address] Apr, [facility] [place] [facility] [address] [facility] [id number] [place] [address] Apr, [facility] [place] [address] [id number] [place] 419382777 Apr, [facility] [place] [address] [id number] [place] [id number] Apr, [facility] [place] [facility] [address] [id number] [place] [address] Apr, [facility] [place] [facility] [address] [facility] [id number] [place] [address] Apr, [facility] [place] [address] [facility] [address] [id number] [place] 010297124 Mar, [facility] [place] [facility] [address] [id number] [place] [address] Mar, [facility] [place] [address] [id number] [place] 566986633 Mar, [facility] [address] [facility] [id number] [place] [address] Mar, [facility] [place] [address] [id number] [place] 566375456 Feb, [facility] [place] [facility] [address] [id number] [place] [address] Feb, [facility] [place] [address] [id number] [place] [id number] December, [facility] [place] [facility] [address] [id number] [place] [address] December, [facility] [place] [address] [facility] [address] [id number] [place] 309911996 December, [facility] [place] [facility] [address] [id number] [place] [address] December, [facility] [place] [address] [id number] [place] [id number] Nov, [facility] [address] [id number] [place] [address] Nov, [facility] [place] [address] [id number] [place] [id number] Nov, [facility] [address] [id number] [place] [address] Nov, [facility] [place] [address] [id number] [place] 049278568 Nov, [facility] [address] [id number] [place] [address] Nov, [facility] [address] [id number] [place] [address] Oct, [facility] [address] [id number] [place] [address] Oct, [facility] [place] [facility] [address] [id number] [place] [address] Aug, [facility] [address] [id number] [place] [address] Aug, [facility] [place] [address] [facility] [address] [id number] [place] [id number] Aug, [facility] [place] [facility] [address] [id number] [place] [address] Aug, [facility] [place] [facility] [address] [id number] [place] [address] Aug, [facility] [place] [facility] [address] [id number] [place] [address] Aug, [facility] [place] [address] [id number] [place], [place] [id number] Jul, [facility] [place] [facility] [address] [id number] [place] [address] 13 Jul, 2013 [facility] [address] [id number] [place] [address] Jul, [facility] [place] [facility] [address] [id number] [place] [address] Jul, [facility] [address] [id number] [place] [address] Jun, [facility] [place] [facility] [address] [id number] [place] [address] Jun, [facility] [address] [id number] [place] [address] Jun, [facility] [address] [id number] [place] [address] Jun, [facility] [place] [facility] [address] [id number] [place] [address] Jun, [facility] [address] [id number] [place] [address] 07 Jun, 2013 [facility] [place] [facility] [address] [id number] [place] [address] Jun, [facility] [address] [facility] [id number] [place] [address] 06 Jun, 2013 [facility] [place] [facility] [address] [id number] [place] [address] 06 Jun, 2013 [facility] [place] [facility] [address] [id number] [address] 18 May, 2013 [facility] [place] [facility] [address] [id number] [place] [address] 18 May, 2013 [facility] [place] [facility] [address] [id number] [place] [address] 16 May, 2013 [facility] [place] [facility] [address] [id number] [place] [address] 16 May, 2013 [facility] [place] [facility] [address] [id number] [place] [address] 14 May, 2013 [facility] [place] [facility] [address] [id number] [place] [address] 14 May, 2013 [facility] [place] [facility] [address] [id number] [place] [address] 04 May, 2013 [facility] [place] [facility] [address] [id number] [place] [address] Apr, [facility] [place] [facility] [address] [id number] [place] [address] Mar, [facility] [place] [facility] [address] [id number] [place] [address] Mar, [facility] [place] [facility] [address] [id number] [place] [address] Mar, [facility] [place] [facility] [address] [id number] [place] [address] Mar, [facility] [place] [facility] [address] [id number] [place] [address] Feb, [facility] [place] [facility] [address] [id number] [place] [address] Feb, [facility] [place] [facility] [address] [id number] [place] [address] Feb, [facility] [place] [facility] [address] [id number] [place] [address] Feb, [facility] [place] [facility] [address] [id number] [place] [address] Feb, [facility] [place] [facility] [address] [id number] [place] [address] Feb, [facility] [place] [facility] [address] [id number] [place] [address] Jan, [facility] [place] [facility] [address] [id number] [place] [address] Jan, [facility] [address] [facility] [id number] [place] [address] Jan, [facility] [address] [facility] [id number] [place] [address] Jan, IMMUNIZATIONS No Known Immunizations SOCIAL HISTORY Never Assessed REASON FOR VISIT Lab (walk-in). [facility] PLAN OF CARE Activity Details Follow Up prn Reason: VITAL SIGNS MEDICATIONS Unknown Medications RESULTS Name Result Date Reference Range CBC 2017-03-10 WBC 7.8 3.4-10.8 RBC 5.02 3.77-5.28 Hemoglobin 14.1 11.1-15.9 Hematocrit 42.1 34.0-46.6 MCV 84 79-97 MCH 28.1 26.6-33.0 MCHC 33.5 31.5-35.7 RDW 15.0 12.3-15.4 Platelets 319 150-379 Neutrophils 54 Lymphs 38 Monocytes 6 Eos 2 Basos 0 Immature Cells Neutrophils (Absolute) 4.1 1.4-7.0 Lymphs (Absolute) 3.0 0.7-3.1 Monocytes(Absolute) 0.5 0.1-0.9 Eos (Absolute) 0.2 0.0-0.4 Baso (Absolute) 0.0 0.0-0.2 Immature Granulocytes 0 Immature Grans (Abs) 0.0 0.0-0.1 [facility] Hematology Comments: LIPID PANEL 2017-03-10 Cholesterol, Total 166 100-199 Triglycerides 195 0-149 HDL Cholesterol 37 >39 VLDL Cholesterol Richard 39 5-40 LDL Cholesterol Calc 90 0-99 Comment: CMP 2017-03-10 Glucose, Serum 114 65-99 BUN 10 6-24 Creatinine, Serum 0.80 0.57-1.00 eGFR If NonAfricn Am 86 >59 eGFR If Africn Am 99 >59 BUN/Creatinine Ratio 13 9-23 Sodium, Serum 138 134-144 Potassium, Serum 5.3 3.5-5.2 Chloride, Serum 98 96-106 Carbon Dioxide, Total 20 18-29 Calcium, Serum 10.2 8.7-10.2 Protein, Total, Serum 7.5 6.0-8.5 Albumin, Serum 4.5 3.5-5.5 Globulin, Total 3.0 1.5-4.5 A/G Ratio 1.5 1.2-2.2 Bilirubin, Total 0.6 0.0-1.2 Alkaline Phosphatase, S 116 39-117 AST (SGOT) 23 0-40 ALT (SGPT) 15 0-32 PROCEDURES Procedure Date Ordered Result Body Site ROUTINE VENIPUNCTURE 2017-03-10 N/A COMPLETE CBC W/AUTO DIFF WBC March 10, 2017 COMPREHEN METABOLIC PANEL March 10, 2017 LIPID PANEL March 10, 2017 INSTRUCTIONS MEDICATIONS ADMINISTERED No Known Medications MEDICAL (GENERAL) HISTORY Type Description Date Medical History Atherosclerotic heart disease of [place] coronary artery without angina pectoris Medical History [...]
--- OUTSIDE RECORDS SUMMARY | 2019-02-01 09:23 | XMS REPORT ---
Author EDUARDO Myers [facility] eClinicalWorks Address Unknown Phone Unavailable Care Team Providers Care Breastfeeding Educator Name Role Phone EDUARDO WEBB CP Unavailable [...] Coronary atherosclerosis of unspecified type of vessel, [place] or graft 414.00 Active Problem Chest pain, [...] Instructions Start Date End Date Status Dosage Ropinirole HCl [facility] [address]-46 0.5 MG Orally @ HS Jun 19, 2016 3 tablets Results No Known Results Summary Purpose eClinicalWorks Submission
--- OUTSIDE RECORDS SUMMARY | 2019-02-01 09:23 | XMS REPORT ---
Author EDUARDO Myers [facility] eClinicalWorks Address Unknown Phone Unavailable Care Team Providers Care Investment Officer Name Role Phone EDUARDO WEBB CP Unavailable [...] Coronary atherosclerosis of unspecified type of vessel, [place] or graft 414.00 Active Problem Chest pain, [...]
--- OUTSIDE RECORDS SUMMARY | 2019-02-01 09:24 | XMS REPORT ---
Author EDUARDO Myers [facility] eClinicalWorks Address Unknown Phone Unavailable Care Team Providers Care Copier Technician Name Role Phone EDUARDO WEBB CP Unavailable Allergies, Adverse Reactions, Alerts Substance Reaction Event Type Hydrocodone-Acetaminophen itching Drug Allergy Problems Problem Type Condition Code Onset Dates Condition Status Assessment Abscess L02.91 Active Problem Restless legs syndrome [RLS] 333.94 Active Problem Depressive disorder, not elsewhere classified 311 Active Problem Other dyspnea and respiratory abnormalities 786.09 Active Problem Diabetes mellitus without mention of complication, type II or unspecified type, uncontrolled 250.02 Active Problem Hidradenitis 705.83 Active Problem Unspecified myalgia and myositis 729.1 Active Problem Personal history of tobacco use, presenting hazards to health V15.82 Active Problem Undiagnosed cardiac murmurs 785.2 Active Problem Coronary atherosclerosis of unspecified type of vessel, [place] or graft 414.00 Active Problem Pure hyperglyceridemia E78.1 Active Problem Cardiac murmur, unspecified R01.1 Active Problem Unspecified hypertrophic and atrophic condition of skin 701.9 Active Problem Chest pain, unspecified 786.50 Active Problem Type 2 diabetes mellitus without complication E11.9 Active Problem Nondependent tobacco use disorder 305.1 Active Problem Hypomagnesemia 275.2 Active Problem DM neuro manif type II E11.40 Active Problem Essential (primary) hypertension I10 Active Problem Diabetic neuropathy 250.60 Active Problem Essential hypertension, benign 401.1 Active Problem Pain in soft tissues of limb 729.5 Active Problem Unspecified essential hypertension 401.9 Active Problem Other and unspecified hyperlipidemia 272.4 Active Problem Pure hyperglyceridemia 272.1 Active Problem Solitary pulmonary nodule 793.11 Active Problem Pain in joint, forearm 719.43 Active Problem Shortness of breath 786.05 Active Medications Medication Code System Code Instructions Start Date End Date Status Dosage Toprol XL [facility] [address]-14 100 MG Orally Sep 05, 2014 take 1 tablet by Oral route 1 time per day HydrOXYzine HCl [facility] [address]-46 10 MG Orally 2 times a day PRN not defined Garlic [facility] [address]-07 100 MG Orally not defined Cymbalta [facility] [address]-44 60 mg November 28, 2013 1 Capsule by Oral route 1 time per day Lisinopril [facility] [address]-74 2.5 MG Orally Once a day 1 tablet Crestor [facility] [address]-98 40 mg May 11, 2014 1 tablet by Oral route 1 time per day Aspirin [facility] [address]-09 81 mg January 27, 2013 1 tablet by Oral route 1 time per day Advair Diskus [facility] [address]-75 250-50 MCG/DOSE Inhalation not defined Requip [facility] [address]-53 0.5 MG Sep 05, 2014 3 tablet by Oral route 1 time per day 1-3 hours before HS Ventolin HFA [facility] [address]-66 90 MCG/ACT Inhalation every 4 hrs 2 puffs as needed Gabapentin [facility] [address]-71 600 MG Orally Three times a day January 03, 2015 1 tablet Bactrim DS [facility] [address]-85 800-160 MG Orally Twice a day January 17, 2016 January 27, 2016 1 tablet Tylenol/Codeine #3 [facility] [address]-67 300-30 MG Orally every 6 hrs January 17, 2016 1 tablet as needed Metoprolol Tartrate [facility] [address]-07 50 mg November 28, 2013 take 1 tablet by Oral route 2 times per day Cyclobenzaprine HCl [facility] [address]-67 5 MG Orally Once a day at HS Apr 02, 2015 1 tablet metformin [facility] [address]-71 1,000 mg Aug 04, 2014 take 1 tablet by Oral route 2 times per day Procedures Procedure Coding System Code Date Office Visit, Est Pt., Level 3 CPT-4 40167 January 17, 2016 Vital Signs Date/Time: January 17, 2016 Cardiac Monitoring Heart Rate 82 bpm Weight 169.2 lbs Height 63 in Blood Pressure Diastolic 80 mmHg Blood Pressure Systolic 132 mmHg Results No Known Results Summary Purpose eClinicalWorks Submission
--- OUTSIDE RECORDS SUMMARY | 2019-02-01 09:24 | XMS REPORT ---
Author Author SJ ALY [facility] Address [address] [place] [address] Care Team Providers Care Group Fitness Department Head Name Role Phone ALYSJ Unavailable PROBLEMS Type Condition ICD9-CM Code [id number] Code Onset Dates Condition Status SNOMED Code Problem Solitary pulmonary nodule 793.11 Active 498824541 Problem Chest pain, unspecified 786.50 Active 67406309 Problem Personal history of tobacco use, presenting hazards to health V15.82 Active 8681494044299 Problem Other dyspnea and respiratory abnormalities 786.09 Active 135289913 Problem Shortness of breath 786.05 Active 980491573 Problem Undiagnosed cardiac murmurs 785.2 Active 267283911 Problem Pain in soft tissues of limb 729.5 Active 56073594 Problem Unspecified myalgia and myositis 729.1 Active 798577306 Problem Diabetic neuropathy 250.60 Active 212789113 Problem Pain in joint, forearm 719.43 Active 842918784 Problem Type 2 diabetes mellitus without complication E11.9 Active 37349008 Problem Hidradenitis 705.83 Active 60628854 Problem Cardiac murmur, unspecified R01.1 Active 325323811 Problem Pure hyperglyceridemia E78.1 Active 820970176 Problem Essential (primary) hypertension I10 Active 13185287 Problem Essential hypertension I10 Active 41036769 Problem DM neuro manif type II E11.40 Active 799174614 Problem Unspecified essential hypertension 401.9 Active 20151132 Problem Coronary atherosclerosis of unspecified type of vessel, [place] or graft 414.00 Active 819123716 Problem Unspecified hypertrophic and atrophic condition of skin 701.9 Active 477198890 Problem Type 2 diabetes mellitus with diabetic neuropathy, unspecified E11.40 Active 3701426210141 Problem Type 2 diabetes mellitus with hyperglycemia E11.65 Active 232333124164230 Problem Fibromyalgia M79.7 Active 515329931 Problem Restless legs syndrome G25.81 Active 38415229 Problem Nondependent tobacco use disorder 305.1 Active 904986921 Problem Other and unspecified hyperlipidemia 272.4 Active 21019311 Problem Essential hypertension, benign 401.1 Active 5459609 Problem Depressive disorder, not elsewhere classified 311 Active 92346021 Problem Restless legs syndrome [RLS] 333.94 Active 75229544 Problem Hypomagnesemia 275.2 Active 731089511 Problem Pure hyperglyceridemia 272.1 Active 089502371 Problem Diabetes mellitus without mention of complication, type II or unspecified type, uncontrolled 250.02 Active 169920393 ALLERGIES Unknown Allergies SOCIAL HISTORY No smoking Hx information available PLAN OF CARE VITAL SIGNS MEDICATIONS Medication Instructions Dosage Frequency Start Date End Date Duration Status Lyrica 150 MG Orally Twice a day 1 capsule 12h Aug, 30 days Active RESULTS No Results PROCEDURES No Known procedures IMMUNIZATIONS No Known Immunizations
--- OUTSIDE RECORDS SUMMARY | 2019-02-01 09:24 | XMS REPORT ---
Author EDUARDO Myers [facility] eClinicalWorks Address Unknown Phone Unavailable Care Team Providers Care Otr Truck Driver Name Role Phone EDUARDO WEBB CP Unavailable [...] Coronary atherosclerosis of unspecified type of vessel, [place] or graft 414.00 Active Problem Chest pain, [...] Instructions Start Date End Date Status Dosage Advair Diskus [facility] [address]-36 250-50 MCG/DOSE by inhalation route Twice a day 1 puff Results No Known Results Summary Purpose eClinicalWorks Submission
--- OUTSIDE RECORDS SUMMARY | 2019-02-01 09:24 | XMS REPORT ---
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 Role Phone ALYSJ Unavailable PROBLEMS Type Condition ICD9-CM Code XEM53-VI Code Onset Dates Condition Status SNOMED Code Problem Personal history of tobacco use, presenting hazards to health V15.82 Active 7834378057942 Problem Solitary pulmonary nodule 793.11 Active 067416556 Problem Other dyspnea and respiratory abnormalities 786.09 Active 391077201 Problem Chest pain, unspecified 786.50 Active 37257799 Problem Shortness of breath 786.05 Active 469772510 Problem Undiagnosed cardiac murmurs 785.2 Active 010409338 Problem Pain in soft tissues of limb 729.5 Active 66344535 Problem Unspecified myalgia and myositis 729.1 Active 800306882 Problem Pain in joint, forearm 719.43 Active 219603817 Problem Type 2 diabetes mellitus without complication E11.9 Active 90055222 Problem Hidradenitis 705.83 Active 06043821 Problem Cardiac murmur, unspecified R01.1 Active 992013156 Problem Unspecified hypertrophic and atrophic condition of skin 701.9 Active 410492938 Problem Essential (primary) hypertension I10 Active 93498107 Problem Type 2 diabetes mellitus with hyperglycemia E11.65 Active 095393869715532 Problem Pure hyperglyceridemia E78.1 Active 919530016 Problem Chronic obstructive pulmonary disease, unspecified COPD type J44.9 Active 91718819 Problem Essential hypertension I10 Active 45268757 Problem Essential hypertension, benign 401.1 Active 5993416 Problem Unspecified essential hypertension 401.9 Active 77324977 Problem Coronary atherosclerosis of unspecified type of vessel, otoe-missouria or graft 414.00 Active 861115406 Problem Restless legs syndrome G25.81 Active 44080011 Problem Type 2 diabetes mellitus with diabetic neuropathy, unspecified E11.40 Active 2956950126329 Problem DM neuro manif type II E11.40 Active 637156912 Problem Fibromyalgia M79.7 Active 491431827 Problem Other and unspecified hyperlipidemia 272.4 Active 59389505 Problem Pure hyperglyceridemia 272.1 Active 315746200 Problem Depressive disorder, not elsewhere classified 311 Active 55595885 Problem Nondependent tobacco use disorder 305.1 Active 505132491 Problem Hypomagnesemia 275.2 Active 235298901 Problem Diabetic neuropathy 250.60 Active 580627414 Problem Diabetes mellitus without mention of complication, type II or unspecified type, uncontrolled 250.02 Active 822957344 Problem Restless legs syndrome [RLS] 333.94 Active 51930709 ALLERGIES No Information ENCOUNTERS Encounter Location Date Diagnosis [facility] [place] [address] [place] [address] C [id number] [place] [id number] Nov, [facility] [place] [address] [place] [address] C [id number] [place] [id number] Oct, Restless legs syndrome G25.81 [facility] [place] [address] [place] [address] C [id number] [place] 800592718 Aug, Type 2 diabetes mellitus with hyperglycemia E11.65 ; Restless legs syndrome G25.81 ; Fibromyalgia M79.7 ; Essential hypertension I10 and Urinary urgency R39.15 [facility] [place] [address] [facility] [address] [id number] [place] [id number] May, [facility] [place] [address] [place] [address] C [id number] [place] [id number] May, Type 2 diabetes mellitus with hyperglycemia E11.65 [facility] [place] [address] [place] [address] C [id number] [place] [id number] May, [facility] [place] [address] [place] [address] [address] [id number] [place] 694708219 Apr, Type 2 diabetes mellitus with hyperglycemia E11.65 [facility] [place] [address] [place] [address] [address] [id number] [place] 030347851 Apr, [facility] [place] [address] [place] [address] C [id number] [place] [id number] 11 Apr, 2017 Hospital discharge follow-up Z09 ; Cardiac murmur, unspecified R01.1 ; Tobacco abuse Z72.0 and Chronic obstructive pulmonary disease, unspecified COPD type J44.9 [facility] [place] [address] [place] [address] [address] [id number] [place] [id number] Mar, Type 2 diabetes mellitus with hyperglycemia E11.65 [facility] [place] [address] [facility] [address] [id number] [place] 827774709 Feb, Type 2 diabetes mellitus with hyperglycemia E11.65 and Essential hypertension I10 [facility] [place] [address] [facility] [address] [id number] [place] 396368601 Feb, Restless legs syndrome G25.81 ; Type 2 diabetes mellitus with hyperglycemia E11.65 ; Essential hypertension I10 and Right upper quadrant pain R10.11 [facility] [place] [address] [facility] [address] [id number] [place] 202091635 Feb, [facility] [place] [address] [facility] [address] [id number] [place] 282521593 Feb, [facility] [place] [address] [facility] [address] [id number] [place] 188022176 Jan, Type 2 diabetes mellitus with hyperglycemia E11.65 and Right sided abdominal pain R10.9 [facility] [place] [address] [facility] [address] [id number] [place] 485729018 Jan, [facility] [place] [address] [facility] [address] [id number] [place] 077959836 Jan, Nausea R11.0 ; Essential hypertension I10 and Dizziness R42 [facility] [place] [address] [facility] [address] [id number] [place] 907955874 Jan, [facility] [place] [address] [facility] [address] [id number] [place] 806654395 Nov, [facility] [place] [address] [facility] [address] [id number] [place] 746964848 Nov, [facility] [place] [address] [facility] [address] [id number] [place] 459909626 Oct, [facility] [place] [address] [facility] [address] [id number] [place] 899494951 Oct, [facility] [place] [address] [facility] [address] [id number] [place] 696854348 Oct, [facility] [place] [address] [facility] [address] [id number] [place] 948666604 Sep, [facility] [address] [facility] [id number] [place] [address] 17 Sep, 2016 Ganglion of tendon M67.40 and DM neuro manif type II E11.40 [facility] [place] [address] [facility] [address] [id number] [place] 689308193 Aug, Pure hyperglyceridemia E78.1 [facility] [place] [address] [facility] [address] [id number] [place] 400059393 Aug, [facility] [place] [address] [facility] [address] [id number] [place] 822125806 Aug, [facility] [place] [address] [facility] [address] [id number] [place] [id number] Aug, [facility] [place] [address] [facility] [address] [id number] [place] 820908858 Aug, Fibromyalgia M79.7 [facility] [place] [address] [facility] [address] [id number] [place] 995335853 Aug, [facility] [place] [address] [facility] [address] [id number] [place] 240859420 Aug, Fibromyalgia M79.7 [facility] [place] [address] [facility] [address] [id number] [place] 677167779 Aug, Fibromyalgia M79.7 ; Mass of right foot R22.41 and Type 2 diabetes mellitus with hyperglycemia E11.65 [facility] [place] [address] [facility] [address] [id number] [place] 837322626 Jun, [facility] [place] [address] [facility] [address] [id number] [place] 456793231 Jun, Furuncle L02.92 and Methicillin resistant Staph aureus culture positive Z22.322 [facility] [place] [address] [facility] [address] [id number] [place] 113578846 Jun, Furuncle L02.92 ; Cellulitis of other specified site L03.818 and Methicillin resistant Staph aureus culture positive Z22.322 [facility] [place] [address] [facility] [address] [id number] [place] [id number] Jun, [facility] [place] [address] [facility] [address] [id number] [place] 264064088 Jun, Furuncle L02.92 and Cellulitis of other specified site L03.818 [facility] [place] [address] [facility] [address] [id number] [place] 253269254 May, Pure hyperglyceridemia E78.1 ; Abscess L02.91 ; Restless legs syndrome G25.81 and Type 2 diabetes mellitus with hyperglycemia E11.65 [facility] [place] [address] [facility] [address] [id number] [place] 664942959 May, [facility] [place] [address] [facility] [address] [id number] [place] 836891624 May, [facility] [place] [address] [facility] [address] [id number] [place] 822240739 May, [facility] [place] [address] [facility] [address] [id number] [place] [id number] Apr, [facility] [place] [address] [place] [address] [address] [id number] [place] 358850507 Mar, Well woman exam Z01.419 ; Encounter for screening mammogram for breast cancer Z12.31 and History of cervical cancer Z85.41 [facility] [place] [address] [place] [address] [address] [id number] [place] 351549130 Mar, Insect bite, multiple W57.XXXA ; Type 2 diabetes mellitus with diabetic neuropathy, unspecified E11.40 ; Essential (primary) hypertension I10 ; DM neuro manif type II E11.40 and Restless legs syndrome G25.81 [facility] [place] [address] [facility] [address] [id number] [place] [id number] Feb, [facility] [place] [address] [facility] [address] [id number] [place] 995019943 Feb, [facility] [place] [address] [facility] [address] [id number] [place] 836549211 Feb, [facility] [place] [address] [facility] [address] [id number] [place] 128983654 Jan, [facility] [place] [address] [facility] [address] [id number] [place] [id number] Jan, [facility] [place] [address] [facility] [address] [id number] [place] 767219464 Jan, Abscess L02.91 [facility] [place] [address] [facility] [address] [id number] [place] 310626684 December, DM neuro manif type II E11.40 ; Pure hyperglyceridemia E78.1 ; Essential (primary) hypertension I10 and Type 2 diabetes mellitus without complication E11.9 [facility] [place] [address] [facility] [address] [id number] [place] 722084501 Oct, [facility] [place] [address] [facility] [address] [id number] [place] [id number] Sep, [facility] [place] [address] [facility] [address] [id number] [place] 209041080 Sep, [facility] [place] [address] [facility] [address] [id number] [place] 700554472 Sep, [facility] [place] [address] [facility] [address] [id number] [place] 869178957 Sep, Type 2 diabetes mellitus without complication E11.9 ; Pure hyperglyceridemia E78.1 ; Cardiac murmur, unspecified R01.1 and Essential (primary) hypertension I10 [facility] [place] [address] [facility] [address] [id number] [place] 251178117 Aug, [facility] [place] [address] [facility] [address] [id number] [place] 559560342 Jul, [facility] [place] [address] [facility] [address] [id number] [place] 731174256 Jul, [facility] [place] [address] [facility] [address] [id number] [place] 810580542 Jun, [facility] [place] [address] [facility] [address] [id number] [place] 892984747 Jun, [facility] [place] [address] [facility] [address] [id number] [place] 655894212 May, [facility] [place] [address] [facility] [address] [id number] [place] 990224959 May, [facility] [place] [address] [facility] [address] [id number] [place] 036814373 May, [facility] [place] [address] [facility] [address] [id number] [place] [id number] May, [facility] [place] [address] [facility] [address] [id number] [place] 155500601 May, [facility] [place] [address] [place] [address] [address] [id number] [place] 285574560 May, [facility] [place] [address] [place] [address] [address] [id number] [place] [id number] Apr, Onychomycosis 110.1 [facility] [place] [address] [place] [address] [address] [id number] [place] [id number] Apr, [facility] [place] [address] [place] [address] [address] [id number] [place] 502432916 Apr, Nail dystrophy 703.8 [facility] [place] [address] [place] [address] [address] [id number] [place] [id number] 08 Apr, 2015 Ingrown nail 703.0 [facility] [place] [address] [place] [address] [address] [id number] [place] 612838576 Apr, Ingrown nail 703.0 [facility] [place] [address] [place] [address] [address] [id number] [place] 159650123 Mar, [facility] [place] [address] [place] [address] [address] [id number] [place] 409594690 Mar, Diabetic neuropathy 250.60 ; Fibromyalgia 729.1 and Lumbago 724.2 [facility] [place] [address] [place] [address] [address] [id number] [place] [id number] Mar, [facility] [place] [address] [place] [address] [address] [id number] [place] 912039854 Jan, Diabetes mellitus without mention of complication, type II or unspecified type, uncontrolled 250.02 and Hypomagnesemia 275.2 [facility] [place] [address] [place] [address] [address] [id number] [place] 969317562 Jan, [facility] [place] [address] [place] [address] [address] [id number] [place] 093433901 Jan, Coronary atherosclerosis of unspecified type of vessel, otoe-missouria or graft 414.00 ; Essential hypertension, benign 401.1 ; Other and unspecified hyperlipidemia 272.4 ; Diabetes mellitus without mention of complication, type II or unspecified type, uncontrolled 250.02 ; Depressive disorder, not elsewhere classified 311 and Restless legs syndrome [RLS] 333.94 [facility] [address] [place] [address] C [id number] [place] [id number] Jan, [facility] [place] [address] [place] [address] C [id number] [place], [place] 183022416 December, Sciatica 724.3 ; Muscle spasm 728.85 ; UTI (urinary tract infection) 599.0 and Dysuria 788.1 [facility] [address] [place] [address] [address] [id number] [place], [place] [id number] December, [facility] [address] [place] [address] C [id number] [place], [place] [id number] December, Scabies 133.0 and Leg pain 729.5 [facility] [address] [id number] [address] Nov, [facility] [address] [address] Nov, [facility] [address] [place] [address] C [id number] [place] [id number] Aug, [facility] [address] [id number] [address] Aug, [facility] [place] [address] [place] [address] C [id number] [place] [id number] Jul, [facility] [address] [id number] [address] Jul, [facility] [address] [place] [address] C [id number] [place] 023362032 Jul, [facility] [address] [id number] [address] Jul, [facility] [place] [address] [place] [address] [address] [id number] [place] 887809581 Jul, [facility] [place] [facility] [address] [id number] [facility] [place] [address] Jul, [facility] [place] [address] [id number] [place] 858441473 Jun, [facility] [place] [facility] [address] [facility] [id number] [facility] [place] [address] Jun, [facility] [place] [address] [id number] [place] 229930389 Jun, [facility] [place] [facility] [address] [id number] [facility] [place] [address] Jun, [facility] [place] [address] [id number] [place] 138016588 May, [facility] [place] [facility] [address] [facility] [id number] [place] [address] May, [facility] [place] [facility] [address] [id number] [place] [address] Apr, [facility] [place] [facility] [address] [id number] [place] [address] Apr, [facility] [place] [address] [facility] [address] [id number] [place] [id number] Apr, [facility] [place] [facility] [address] [facility] [id number] [place] [address] Apr, [facility] [place] [address] [facility] [address] [id number] [place] 162817352 Apr, [facility] [place] [facility] [address] [id number] [facility] [place] [address] Apr, [facility] [place] [facility] [address] [id number] [place] [address] Apr, [facility] [place] [address] [id number] [place] 902142830 Apr, [facility] [place] [facility] [address] [facility] [id number] [place] [address] Apr, [facility] [place] [address] [id number] [place] 403323560 Apr, [facility] [place] [facility] [address] [id number] [place] [address] Apr, [facility] [place] [facility] [address] [facility] [id number] [place] [address] Apr, [facility] [place] [address] [id number] [place] 243195972 Apr, [facility] [place] [address] [id number] [place] 094401312 Apr, [facility] [place] [facility] [address] [id number] [place] [address] Apr, [facility] [place] [facility] [address] [facility] [id number] [place] [address] Apr, [facility] [place] [address] [facility] [address] [id number] [place] 118708572 Mar, [facility] [place] [facility] [address] [id number] [place] [address] Mar, [facility] [place] [address] [id number] [place] 428561532 Mar, [facility] [place] [address] [facility] [id number] [place] [address] Mar, [facility] [place] [address] [id number] [place] [id number] Feb, [facility] [place] [facility] [address] [id number] [place] [address] Feb, [facility] [place] [address] [id number] [place] 367099046 December, [facility] [place] [facility] [address] [id number] [place] [address] December, [facility] [place] [address] [facility] [address] [id number] [place] 716134437 December, [facility] [place] [facility] [address] [id number] [place] [address] December, [facility] [place] [address] [id number] [place] 805634625 Nov, [facility] [address] [id number] [place] [address] Nov, [facility] [place] [address] [id number] [place] 789988220 Nov, [facility] [address] [id number] [place] [address] Nov, [facility] [place] [address] [id number] [place] 013974494 Nov, [facility] [address] [id number] [place] [address] Nov, [facility] [address] [id number] [place] [address] Oct, [facility] [address] [id number] [place] [address] Oct, [facility] [place] [facility] [address] [id number] [place] [address] Aug, [facility] [address] [id number] [place] [address] Aug, [facility] [place] [address] [facility] [address] [id number] [place] [id number] Aug, [facility] [place] [facility] [address] [id number] [place] [address] Aug, [facility] [place] [facility] [address] [id number] [place] [address] Aug, [facility] [place] [facility] [address] [id number] [place] [address] Aug, [facility] [place] [address] [id number] [place] [id number] Jul, [facility] [place] [facility] [address] [id number] [place] [address] 13 Jul, 2013 [facility] [address] [id number] [place] [address] Jul, [facility] [place] [facility] [address] [id number] [place] [address] Jul, [facility] [address] [id number] [place] [address] Jun, [facility] [place] [facility] [address] [id number] [place] [address] Jun, [facility] [address] [id number] [place] [address] Jun, [facility] [address] [id number] [place] [address] Jun, [facility] [place] [facility] [address] [id number] [place] [address] Jun, [facility] [address] [id number] [place] [address] 07 Jun, 2013 [facility] [place] [facility] [address] [id number] [place] [address] Jun, [facility] [address] [facility] [id number] [place] [address] 06 Jun, 2013 [facility] [place] [facility] [address] [id number] [place] [address] 06 Jun, 2013 [facility] [place] [facility] [address] [id number], [place] [address] 18 May, 2013 [facility] [place] [facility] [address] [id number] [place] [address] 18 May, 2013 [facility] [place] [facility] [address] [id number] [place] [address] 16 May, 2013 [facility] [place] [facility] [address] [id number] [place] [address] 16 May, 2013 [facility] [place] [facility] [address] [id number] [place] [address] 14 May, 2013 [facility] [place] [facility] [address] [id number] [place] [address] 14 May, 2013 [facility] [place] [facility] [address] [id number] [place] [address] 04 May, 2013 [facility] [place] [facility] [address] [id number] [place] [address] Apr, [facility] [place] [facility] [address] [id number] [place] [address] Mar, [facility] [place] [facility] [address] [id number] [place] [address] Mar, [facility] [place] [facility] [address] [id number] [place] [address] Mar, [facility] [place] [facility] [address] [id number] [place] [address] Mar, [facility] [place] [facility] [address] [id number] [place] [address] Feb, [facility] [place] [facility] [address] [id number], [place] [address] Feb, [facility] [place] [facility] [address] [id number], [place] [address] Feb, [facility] [place] [facility] [address] [id number], [place] [address] Feb, [facility] [place] [facility] [address] [id number] [place] [address] Feb, [facility] [place] [facility] [address] [id number], [place] [address] Feb, [facility] [place] [facility] [address] [id number], [place] [address] Jan, [facility] [place] [facility] [address] [id number], [place] [address] Jan, [facility] [address] [facility] [id number] [place] [address] Jan, [facility] [address] [facility] [id number], [place] [address] Jan, IMMUNIZATIONS No Known Immunizations SOCIAL HISTORY Never Assessed REASON FOR VISIT RUQ pain for a month PLAN OF CARE Activity Details Follow Up prn, 1 Week Reason:f/u after US VITAL SIGNS Height 63 in 2017-02-25 Temperature 98.1 degrees Fahrenheit 2017-02-25 Heart Rate 68 bpm 2017-02-25 Respiratory Rate 16 2017-02-25 Blood pressure systolic 138 mmHg 2017-02-25 Blood pressure diastolic 84 mmHg 2017-02-25 MEDICATIONS Medication Instructions Dosage Frequency Start Date End Date Duration Status Ropinirole HCl 0.5 MG Orally HS 3 tablets Jun, Active Lisinopril 2.5 MG Orally Once a day 1 tablet 24h 90 days Active Metoprolol Tartrate 100 mg Orally Twice a day 1/2 tablet 12h Aug, Active Magnesium 250 MG Orally Once a day 1 tablet with a meal 24h Active Atorvastatin Calcium 40 mg Orally Once a day 1 tablet 24h 31 May, 2016 Active MetFORMIN HCl ER 500 mg Orally 2 times a day 1 tablet with evening meal 12h Jan, 30 day(s) Active Advair Diskus 250-50 MCG/DOSE by inhalation route Twice a day 1 puff 12h Active Ventolin HFA 90 MCG/ACT Inhalation every 4 hrs 2 puffs as needed 4h Active Cymbalta 60 mg 1 Capsule by Oral route 1 time per day Nov, Active RESULTS Name Result Date Reference Range Ultrasound : Abdomen, LIMITED (specify organ) 2017-03-10 PROCEDURES No Known procedures INSTRUCTIONS MEDICATIONS ADMINISTERED No Known Medications MEDICAL (GENERAL) HISTORY Type Description Date Medical History Atherosclerotic heart disease of [place] coronary artery without angina pectoris Medical History [...]
--- OUTSIDE RECORDS SUMMARY | 2019-02-01 09:24 | XMS REPORT ---
Author Author JEAN-PIERRE PARRISH [facility] Address [address] [place] [address] Care Team Providers Care Gift Shop Manager Name Role Phone JEAN-PIERRE PARRISH Unavailable PROBLEMS Type Condition ICD9-CM Code KRU54-MG Code Onset Dates Condition Status SNOMED Code Problem Personal history of tobacco use, presenting hazards to health V15.82 Active 8782197935045 Problem Solitary pulmonary nodule 793.11 Active 564101623 Problem Other dyspnea and respiratory abnormalities 786.09 Active 011590295 Problem Chest pain, unspecified 786.50 Active 95059966 Problem Shortness of breath 786.05 Active 893893601 Problem Undiagnosed cardiac murmurs 785.2 Active 439739061 Problem Pain in soft tissues of limb 729.5 Active 65909943 Problem Unspecified myalgia and myositis 729.1 Active 009646471 Problem Pain in joint, forearm 719.43 Active 956946986 Problem Type 2 diabetes mellitus without complication E11.9 Active 57867648 Problem Hidradenitis 705.83 Active 33177339 Problem Cardiac murmur, unspecified R01.1 Active 138584086 Problem Unspecified hypertrophic and atrophic condition of skin 701.9 Active 154130376 Problem Essential (primary) hypertension I10 Active 70675523 Problem Type 2 diabetes mellitus with hyperglycemia E11.65 Active 260182492489330 Problem Pure hyperglyceridemia E78.1 Active 905439223 Problem Chronic obstructive pulmonary disease, unspecified COPD type J44.9 Active 40179524 Problem Essential hypertension I10 Active 93491177 Problem Essential hypertension, benign 401.1 Active 1884424 Problem Unspecified essential hypertension 401.9 Active 40756193 Problem Coronary atherosclerosis of unspecified type of vessel, [place] or graft 414.00 Active 856138713 Problem Restless legs syndrome G25.81 Active 30629466 Problem Type 2 diabetes mellitus with diabetic neuropathy, unspecified E11.40 Active 2526333656396 Problem DM neuro manif type II E11.40 Active 058474570 Problem Fibromyalgia M79.7 Active 083781607 Problem Other and unspecified hyperlipidemia 272.4 Active 06622513 Problem Pure hyperglyceridemia 272.1 Active 652259927 Problem Depressive disorder, not elsewhere classified 311 Active 42643298 Problem Nondependent tobacco use disorder 305.1 Active 854326416 Problem Hypomagnesemia 275.2 Active 588353057 Problem Diabetic neuropathy 250.60 Active 738967100 Problem Diabetes mellitus without mention of complication, type II or unspecified type, uncontrolled 250.02 Active 147078993 Problem Restless legs syndrome [RLS] 333.94 Active 25499964 ALLERGIES No Information SOCIAL HISTORY Never Assessed PLAN OF CARE VITAL SIGNS MEDICATIONS Medication Instructions Dosage Frequency Start Date End Date Duration Status Metoprolol Tartrate 100 mg Orally Twice a day 1/2 tablet 12h 12 Aug, 2016 Active RESULTS No Results PROCEDURES No Known procedures IMMUNIZATIONS No Known Immunizations MEDICAL (GENERAL) HISTORY Type Description Date Medical History Atherosclerotic heart disease of [place] coronary artery without angina pectoris Medical History [...]
--- OUTSIDE RECORDS SUMMARY | 2019-02-01 09:24 | XMS REPORT ---
Author EDUARDO Myers [facility] eClinical[employer] Address Unknown Phone Unavailable Care Team Providers Care Healthcare Social Worker Name Role Phone EDUARDO WEBB CP Unavailable Allergies, Adverse Reactions, Alerts Substance Reaction Event Type Hydrocodone-Acetaminophen itching Drug Allergy Acetaminophen-Codeine #3 itching Drug Allergy Problems Problem Type Condition Code Onset Dates Condition Status Assessment Type 2 diabetes mellitus with hyperglycemia E11.65 Active Assessment Abscess L02.91 Active Assessment Restless legs syndrome G25.81 Active Assessment Pure hyperglyceridemia E78.1 Active Problem Restless legs syndrome [RLS] 333.94 [...] Coronary atherosclerosis of unspecified type of vessel, [place] or graft 414.00 Active Problem Chest pain, [...] Start Date End Date Status Dosage Cymbalta [facility] [address]-18 60 mg November 28, 2013 1 Capsule by Oral route 1 time per day Toprol XL [facility] [address]-75 100 MG Orally Sep 05, 2014 take 1 tablet by Oral route 1 time per day Gabapentin [facility] [address]-03 600 MG Orally Three times a day January 03, 2015 1 tablet metformin [facility] [address]-53 1,000 mg Aug 04, 2014 take 1 tablet by Oral route 2 times per day Bactrim DS [facility] [address]-59 800-160 MG Orally Twice a day Jun 16, 2016 Jun 26, 2016 1 tablet Aspirin [facility] [address]-11 81 mg January 27, 2013 1 tablet by Oral route 1 time per day Advair Diskus [facility] [address]-35 250-50 MCG/DOSE by inhalation route Twice a day 1 puff Lisinopril [facility] [address]-98 2.5 MG Orally Once a day 1 tablet Requip [facility] [address]-52 0.5 MG Sep 05, 2014 3 tablet by Oral route 1 time per day 1-3 hours before HS Ventolin HFA [facility] [address]-35 90 MCG/ACT Inhalation every 4 hrs 2 puffs as needed BusPIRone HCl [facility] [address]-08 10 mg Orally Twice a day March 11, 2016 Take 1 tablet Metoprolol Tartrate [facility] [address]-63 50 mg November 28, 2013 take 1 tablet by Oral route 2 times per day Atorvastatin Calcium [facility] [address]-39 40 mg Orally Once a day Jun 16, 2016 1 tablet PredniSONE [facility] [address]-27 20 mg Orally Once a day Mar 17, 2016 2 tabs daily x 4 days then 1 tab daily x 4 days Procedures Procedure Coding System Code Date Office Visit, Est Pt., Level 3 CPT-4 51419 Jun 16, 2016 CULTURE BACTERIA ANAEROBIC CPT-4 90759 Jun 16, 2016 DRAINAGE OF SKIN ABSCESS CPT-4 72188 Jun 16, 2016 CULTURE, BACTERIA, OTHER CPT-4 02152 Jun 16, 2016 Vital Signs Date/Time: Jun 16, 2016 Cardiac Monitoring Heart Rate 84 bpm Weight 160.2 lbs Height 63 in BMI 28.38 Index Blood Pressure Diastolic 70 mmHg Blood Pressure Systolic 118 mmHg Results Name Result Date Reference Range Unit Abnormality Flag I/D SIMPLE ABSCESS CULTURE, ANAEROBIC AND AEROBIC ----Aerobic Culture Final report [id number] ----Anaerobic Culture Final report [id number] Summary Purpose eClinicalWorks Submission
--- OUTSIDE RECORDS SUMMARY | 2019-02-01 09:25 | XMS REPORT ---
Author Author SJ ALY [facility] Address [address] [place] [address] Care Team Providers Care Address Change Clerk Name Role Phone ALY, SJ Unavailable PROBLEMS Type Condition ICD9-CM Code EAJ11-NR Code Onset Dates Condition Status SNOMED Code Problem Essential (primary) hypertension I10 Active 27051346 Problem Type 2 diabetes mellitus with hyperglycemia E11.65 Active [id number] Problem Pure hyperglyceridemia E78.1 Active 409065915 Problem Chronic obstructive pulmonary disease, unspecified COPD type J44.9 Active 49453356 Problem Essential hypertension I10 Active 54691278 Problem Restless legs syndrome G25.81 Active 88520663 Problem Type 2 diabetes mellitus with diabetic neuropathy, unspecified E11.40 Active 8507257158957 Problem DM neuro manif type II E11.40 Active 929364491 Problem Fibromyalgia M79.7 Active 898909762 Problem Solitary pulmonary nodule 793.11 Active 509361042 Problem Unspecified hypertrophic and atrophic condition of skin 701.9 Active 845629955 Problem Hypomagnesemia 275.2 Active 667335141 Problem Diabetic neuropathy 250.60 Active 600074299 Problem Coronary atherosclerosis of unspecified type of vessel, [place] or graft 414.00 Active 916985019 Problem Type 2 diabetes mellitus without complication E11.9 Active 08514171 Problem Depressive disorder, not elsewhere classified 311 Active 78304197 Problem Cardiac murmur, unspecified R01.1 Active 731481446 ALLERGIES No Information ENCOUNTERS Encounter Location Date Diagnosis [facility] [place] [address] [facility] [address] [id number] [place] [id number] Feb, [facility] [address] [place] [address] C [id number] [place] [id number] Nov, [facility] [address] [place] [address] C [id number] [place] [id number] Nov, Type 2 diabetes mellitus with hyperglycemia E11.65 [facility] [address] [facility] [id number] [place] [address] 16 Nov, 2017 Essential hypertension I10 [facility] [place] [address] [facility] [address] [id number] [place] [id number] Oct, Restless legs syndrome G25.81 [facility] [place] [address] [facility] [address] [id number] [place] [id number] 10 Aug, 2017 Type 2 diabetes mellitus with hyperglycemia E11.65 ; Restless legs syndrome G25.81 ; Fibromyalgia M79.7 ; Essential hypertension I10 and Urinary urgency R39.15 [facility] [place] [address] [facility] [address] [id number] [place] [id number] May, [facility] [place] [address] [place] [address] [address] [id number] [place] [id number] 16 May, 2017 Type 2 diabetes mellitus with hyperglycemia E11.65 [facility] [place] [address] [place] [address] C [id number] [place] [id number] May, [facility] [place] [address] [place] [address] [address] [id number] [place] [id number] 19 Apr, 2017 Type 2 diabetes mellitus with hyperglycemia E11.65 [facility] [place] [address] [place] [address] [address] [id number] [place] [id number] 15 Apr, 2017 [facility] [place] [address] [place] [address] C [id number] [place] [id number] 11 Apr, 2017 Hospital discharge follow-up Z09 ; Cardiac murmur, unspecified R01.1 ; Tobacco abuse Z72.0 and Chronic obstructive pulmonary disease, unspecified COPD type J44.9 [facility] [place] [address] [place] [address] [address] [id number] [place] [id number] Mar, Type 2 diabetes mellitus with hyperglycemia E11.65 [facility] [place] [address] [facility] [address] [id number] [place] [id number] Feb, Type 2 diabetes mellitus with hyperglycemia E11.65 and Essential hypertension I10 [facility] [place] [address] [facility] [address] [id number] [place] [id number] Feb, Restless legs syndrome G25.81 ; Type 2 diabetes mellitus with hyperglycemia E11.65 ; Essential hypertension I10 and Right upper quadrant pain R10.11 [facility] [place] [address] [facility] [address] [id number] [place] [id number] Feb, [facility] [place] [address] [facility] [address] [id number] [place] [id number] Feb, [facility] [place] [address] [facility] [address] [id number] [place] [id number] Jan, Type 2 diabetes mellitus with hyperglycemia E11.65 and Right sided abdominal pain R10.9 [facility] [place] [address] [facility] [address] [id number] [place] [id number] Jan, [facility] [place] [address] [facility] [address] [id number] [place] [id number] Jan, Nausea R11.0 ; Essential hypertension I10 and Dizziness R42 [facility] [place] [address] [facility] [address] [id number] [place] [id number] Jan, [facility] [place] [address] [facility] [address] [id number] [place] [id number] Nov, [facility] [place] [address] [place] [address] [address] [id number] [place] [id number] Nov, [facility] [place] [address] [facility] [address] [id number] [place] [id number] Oct, [facility] [place] [address] [place] [address] [address] [id number] [place] [id number] Oct, [facility] [place] [address] [place] [address] [address] [id number] [place] [id number] Oct, [facility] [place] [address] [place] [address] [address] [id number] [place] [id number] Sep, [facility] [address] [facility] [id number] [place] [address] Sep, Ganglion of tendon M67.40 and DM neuro manif type II E11.40 [facility] [place] [address] [facility] [address] [id number] [place] [id number] Aug, Pure hyperglyceridemia E78.1 [facility] [place] [address] [place] [address] [address] [id number] [place] [id number] Aug, [facility] [place] [address] [id number] [place] [id number] Aug, [facility] [place] [address] [id number] [place] [id number] Aug, [facility] [place] [address] [facility] [address] [id number] [place] [id number] Aug, Fibromyalgia M79.7 [facility] [place] [address] [id number] [place] [id number] Aug, [facility] [place] [address] [facility] [address] [id number] [place] [id number] Aug, Fibromyalgia M79.7 [facility] [place] [address] [id number] [place] [id number] Aug, Fibromyalgia M79.7 ; Mass of right foot R22.41 and Type 2 diabetes mellitus with hyperglycemia E11.65 [facility] [place] [address] [facility] [address] [id number] [place] [id number] Jun, [facility] [place] [address] [facility] [address] [id number] [place] [id number] Jun, Furuncle L02.92 and Methicillin resistant Staph aureus culture positive Z22.322 [facility] [place] [address] [facility] [address] [id number] [place] 9[address]822583 04 Jun, 2016 Furuncle L02.92 ; Cellulitis of other specified site L03.818 and Methicillin resistant Staph aureus culture positive Z22.322 [facility] [place] [address] [id number] [place] [id number] Jun, [facility] [place] [address] [facility] [address] [id number] [place] [id number] Jun, Furuncle L02.92 and Cellulitis of other specified site L03.818 [facility] [place] [address] [id number] [place] [id number] May, Pure hyperglyceridemia E78.1 ; Abscess L02.91 ; Restless legs syndrome G25.81 and Type 2 diabetes mellitus with hyperglycemia E11.65 [facility] [place] [address] [id number] [place] [id number] May, [facility] [place] [address] [facility] [address] [id number] [place] [id number] May, [facility] [place] [address] [facility] [address] [id number] [place] 3002[address]104 May, [facility] [place] [address] [facility] [address] [id number] [place] 170355975 Apr, [facility] [place] [address] [facility] [address] [id number] [place] [id number] Mar, Well woman exam Z01.419 ; Encounter for screening mammogram for breast cancer Z12.31 and History of cervical cancer Z85.41 [facility] [place] [address] [facility] [address] [id number] [place] [id number] Mar, Insect bite, multiple W57.XXXA ; Type 2 diabetes mellitus with diabetic neuropathy, unspecified E11.40 ; Essential (primary) hypertension I10 ; DM neuro manif type II E11.40 and Restless legs syndrome G25.81 [facility] [place] [address] [facility] [address] [id number] [place] [id number] Feb, [facility] [place] [address] [facility] [address] [id number] [place] 990[address]32[address] Feb, [facility] [place] [address] [facility] [address] [id number] [place] 53585[address]40 Feb, [facility] [place] [address] [facility] [address] [id number] [place] [id number] Jan, [facility] [place] [address] [facility] [address] [id number] [place] [id number] Jan, [facility] [place] [address] [facility] [address] [id number] [place] 939455047 Jan, Abscess L02.91 [facility] [place] [address] [facility] [address] [id number] [place] [id number] December, DM neuro manif type II E11.40 ; Pure hyperglyceridemia E78.1 ; Essential (primary) hypertension I10 and Type 2 diabetes mellitus without complication E11.9 [facility] [place] [address] [facility] [address] [id number] [place] [id number] Oct, [facility] [place] [address] [facility] [address] [id number] [place] [id number] Sep, [facility] [place] [address] [facility] [address] [id number] [place] [id number] Sep, [facility] [place] [address] [facility] [address] [id number] [place] [id number] Sep, [facility] [place] [address] [facility] [address] [id number] [place] [id number] Sep, Type 2 diabetes mellitus without complication E11.9 ; Pure hyperglyceridemia E78.1 ; Cardiac murmur, unspecified R01.1 and Essential (primary) hypertension I10 [facility] [place] [address] [facility] [address] [id number] [place] [id number] Aug, [facility] [place] [address] [facility] [address] [id number] [place] 319787788 Jul, [facility] [place] [address] [facility] [address] [id number] [place] [id number] Jul, [facility] [place] [address] [facility] [address] [id number] [place] 852241522 Jun, [facility] [place] [address] [facility] [address] [id number] [place] 020724400 Jun, [facility] [place] [address] [facility] [address] [id number] [place] [id number] May, [facility] [place] [address] [facility] [address] [id number] [place] [id number] May, [facility] [place] [address] [facility] [address] [id number] [place] [id number] May, [facility] [place] [address] [facility] [address] [id number] [place] [id number] May, [facility] [place] [address] [facility] [address] [id number] [place] [id number] May, [facility] [place] [address] [facility] [address] [id number] [place] [id number] May, [facility] [place] [address] [facility] [address] [id number] [place] 947335063 Apr, Onychomycosis 110.1 [facility] [place] [address] [place] [address] C [id number] [place] [id number] Apr, [facility] [place] [address] [place] [address] C [id number] [place] 928892558 Apr, Nail dystrophy 703.8 [facility] [place] [address] [place] [address] C [id number] [place] [id number] 08 Apr, 2015 Ingrown nail 703.0 [facility] [place] [address] [place] [address] C [id number] [place] [id number] 04 Apr, 2015 Ingrown nail 703.0 [facility] [place] [address] [place] [address] C [id number] [place] [id number] Mar, [facility] [place] [address] [place] [address] C [id number] [place] [id number] Mar, Diabetic neuropathy 250.60 ; Fibromyalgia 729.1 and Lumbago 724.2 [facility] [place] [address] [place] [address] C [id number] [place], [place] [id number] Mar, [facility] [place] [address] [place] [address] C [id number] [place] [id number] Jan, Diabetes mellitus without mention of complication, type II or unspecified type, uncontrolled 250.02 and Hypomagnesemia 275.2 [facility] [place] [address] [place] [address] C [id number] [place] [id number] Jan, [facility] [place] [address] [place] [address] C [id number] [place] [id number] Jan, Coronary atherosclerosis of unspecified type of vessel, caddo or graft 414.00 ; Essential hypertension, benign 401.1 ; Other and unspecified hyperlipidemia 272.4 ; Diabetes mellitus without mention of complication, type II or unspecified type, uncontrolled 250.02 ; Depressive disorder, not elsewhere classified 311 and Restless legs syndrome [RLS] 333.94 [facility] [place] [address] [place] [address] C [id number] [place] [id number] Jan, [facility] [place] [address] [place] [address] C [id number] [place] [id number] December, Sciatica 724.3 ; Muscle spasm 728.85 ; UTI (urinary tract infection) 599.0 and Dysuria 788.1 [facility] [place] [address] [id number] [place] [id number] December, [facility] [place] [address] [facility] [address] [id number] [place] [id number] December, Scabies 133.0 and Leg pain 729.5 [facility] [address] [facility] [id number] [place] [address] Nov, [facility] [address] [facility] [id number] [place] [address] Nov, [facility] [place] [address] [facility] [address] [id number] [place] [id number] Aug, [facility] [address] [facility] [id number] [place] [address] Aug, [facility] [place] [address] [facility] [address] [id number] [place] [id number] Jul, [facility] [address] [facility] [id number] [place] [address] Jul, [facility] [place] [address] [facility] [address] [id number] [place] [id number] Jul, [facility] [address] [facility] [id number] [place] [address] Jul, [facility] [place] [address] [facility] [address] [id number] [place] [id number] Jul, [facility] [address] [facility] [id number] [place] [address] Jul, [facility] [place] [address] [facility] [address] [id number] [place] [id number] Jun, [facility] [address] [facility] [id number] [place] [address] Jun, [facility] [place] [address] [facility] [address] [id number] [place] [id number] Jun, [facility] [place] [facility] [address] [id number] [place] [address] Jun, [facility] [place] [address] [id number] [place] [id number] May, [facility] [place] [facility] [address] [facility] [id number] [place] [address] May, [facility] [place] [facility] [address] [id number] [place] [address] Apr, [facility] [place] [facility] [address] [id number] [place] [address] Apr, [facility] [place] [address] [facility] [address] [id number] [place] [id number] Apr, [facility] [place] [facility] [address] [facility] [id number] [place] [address] Apr, [facility] [place] [address] [facility] [address] [id number] [place] [id number] Apr, [facility] [place] [facility] [address] [id number] [place] [address] Apr, [facility] [place] [facility] [address] [id number] [place] [address] Apr, [facility] [place] [address] [facility] [address] [id number] [place] [id number] Apr, [facility] [place] [facility] [address] [id number] [place] [address] Apr, [facility] [place] [address] [facility] [address] [id number] [place] [id number] Apr, [facility] [place] [facility] [address] [id number] [place] [address] 12 Apr, 2014 [facility] [place] [facility] [address] [id number] [place] [address] Apr, [facility] [place] [address] [id number] [place] [id number] 08 Apr, 2014 [facility] [place] [address] [id number] [place] [id number] Apr, [facility] [place] [facility] [address] [id number] [facility] [place] [address] Apr, [facility] [place] [facility] [address] [id number] [facility] [place] [address] Apr, [facility] [place] [address] [facility] [address] [id number] [place] [id number] Mar, [facility] [place] [facility] [address] [id number] [place] [address] Mar, [facility] [place] [address] [facility] [address] [id number] [place] [id number] Mar, [facility] [place] [facility] [address] [id number] [place] [address] Mar, [facility] [place] [address] [facility] [address] [id number] [place] [id number] Feb, [facility] [place] [facility] [address] [id number] [facility] [address] Feb, [facility] [place] [address] [facility] [address] [id number] [place] [id number] December, [facility] [place] [facility] [address] [id number] [facility] [place] [address] December, [facility] [place] [address] [facility] [address] [id number] [place] [id number] December, [facility] [place] [facility] [address] [id number] [facility] [place] [address] December, [facility] [place] [address] [facility] [address] [id number] [place] [id number] Nov, [facility] [place] [facility] [address] [id number] [place] [address] Nov, [facility] [place] [address] [facility] [address] [id number] [place] [id number] Nov, [facility] [place] [facility] [address] [facility] [id number] [place] [address] Nov, 2013 [facility] [place] [address] [id number] [place] [id number] Nov, [facility] [address] [id number] [place] [address] Nov, [facility] [place] [facility] [address] [id number] [place] [address] Oct, [facility] [place] [facility] [address] [id number] [place] [address] Oct, [facility] [place] [facility] [address] [id number] [place] [address] Aug, [facility] [place] [facility] [address] [id number] [place] [address] Aug, [facility] [place] [address] [id number] [place] [id number] Aug, [facility] [place] [facility] [address] [id number], [place] [address] Aug, [facility] [place] [facility] [address] [id number] [place] [address] Aug, [facility] [place] [facility] [address] [facility] [id number], [place] [address] Aug, [facility] [place] [address] [id number] [place] [id number] Jul, [facility] [place] [facility] [address] [id number], [place] [address] Jul, [facility] [place] [facility] [address] [id number], [place] [address] Jul, [facility] [place] [facility] [address] [id number] [place] [address] Jul, [facility] [place] [facility] [address] [facility] [id number], [place] [address] Jun, [facility] [place] [facility] [address] [facility] [id number], [place] [address] 12 Jun, 2013 [facility] [place] [facility] [address] [id number] [place] [address] 12 Jun, 2013 [facility] [place] [facility] [address] [id number] [place] [address] 08 Jun, 2013 [facility] [place] [facility] [address] [id number] [place] [address] 08 Jun, 2013 [facility] [place] [facility] [address] [id number] [place] [address] 07 Jun, 2013 [facility] [place] [facility] [address] [id number] [place] [address] 07 Jun, 2013 [facility] [place] [facility] [address] [id number] [place] [address] Jun, [facility] [place] [facility] [address] [id number] [place] [address] Jun, [facility] [place] [facility] [address] [id number] [place] [address] 18 May, 2013 [facility] [place] [facility] [address] [id number] [place] [address] 18 May, 2013 [facility] [place] [facility] [address] [id number] [place] [address] 16 May, 2013 [facility] [place] [facility] [address] [id number], [place] [address] 16 May, 2013 [facility] [place] [facility] [address] [id number], [place] [address] 14 May, 2013 [facility] [place] [facility] [address] [id number] [place] [address] 14 May, 2013 [facility] [place] [facility] [address] [id number], [place] [address] 04 May, 2013 [facility] [place] [facility] [address] [id number] [place] [address] 04 Apr, 2013 [facility] [place] [facility] [id number], [place] [address] Mar, [facility] [address] [facility] [id number], [place] [address] Mar, [facility] [address] [facility] [id number], [place] [address] Mar, [facility] [id number], [place] [address] Mar, [facility] [address] [facility] [id number], [place] [address] Feb, [facility] [id number], [place] [address] Feb, [facility] [id number], [place] [address] Feb, [facility] [id number], [place] [address] Feb, [facility] [id number], [place] [address] Feb, [facility] [id number], [place] [address] Feb, [facility] [id number], [place] [address] Jan, [facility] [address] [id number], [place] [address] Jan, [facility] [address] [id number], [place] [address] Jan, [facility] [address] [id number], [place] [address] Jan, IMMUNIZATIONS No Known Immunizations SOCIAL HISTORY Never Assessed REASON FOR VISIT Requests return call PLAN OF CARE VITAL SIGNS MEDICATIONS Unknown Medications RESULTS No Results PROCEDURES No Known procedures INSTRUCTIONS MEDICATIONS ADMINISTERED No Known Medications MEDICAL (GENERAL) HISTORY Type Description Date Medical History Atherosclerotic heart disease of [place] coronary artery without angina pectoris Medical History [...]
--- OUTSIDE RECORDS SUMMARY | 2019-02-01 09:25 | XMS REPORT ---
Author JEAN-PIERRE Smith Organization [employer] Address Unknown Phone Unavailable Care Team Providers Care Mending Carrier Name Role Phone JEAN-PIERRE PARRISH CP Unavailable [...] of unspecified type of vessel, [place] or graft 414.00 Active Problem Chest pain, [...] Instructions Start Date End Date Status Dosage Lipofen [facility] [id number] 150 MG May 11, 2014 take 1 capsule (150 mg) by oral route once daily with food Results No Known Results Summary Purpose [employer] Submission
--- OUTSIDE RECORDS SUMMARY | 2019-02-01 09:26 | XMS REPORT ---
Author Author SJ ALY [facility] Address [address] [place] [address] Care Team Providers Care Die Cutter Diamond Name Role Phone ALY, SJ Unavailable PROBLEMS Type Condition ICD9-CM Code UPT74-FN Code Onset Dates Condition Status SNOMED Code Problem Essential (primary) hypertension I10 Active 55146999 Problem Type 2 diabetes mellitus with hyperglycemia E11.65 Active 370460790349881 Problem Pure hyperglyceridemia E78.1 Active 919284830 Problem Chronic obstructive pulmonary disease, unspecified COPD type J44.9 Active 80117007 Problem Essential hypertension I10 Active 16607676 Problem Restless legs syndrome G25.81 Active 17670614 Problem Type 2 diabetes mellitus with diabetic neuropathy, unspecified E11.40 Active 3278157146221 Problem DM neuro manif type II E11.40 Active 188563943 Problem Fibromyalgia M79.7 Active 181574202 Problem Solitary pulmonary nodule 793.11 Active 422071181 Problem Unspecified hypertrophic and atrophic condition of skin 701.9 Active 633973678 Problem Hypomagnesemia 275.2 Active 324316006 Problem Diabetic neuropathy 250.60 Active 433389462 Problem Coronary atherosclerosis of unspecified type of vessel, sw[place] or graft 414.00 Active 220891682 Problem Type 2 diabetes mellitus without complication E11.9 Active 53558681 Problem Depressive disorder, not elsewhere classified 311 Active 01269844 Problem Cardiac murmur, unspecified R01.1 Active 439627337 ALLERGIES No Information ENCOUNTERS Encounter Location Date Diagnosis [facility] [address] [facility] [address] [id number] [place] [id number] Feb, [facility] [address] [place] [address] C [id number] [place] [id number] Nov, [facility] [address] [place] [address] C [id number] [place] [id number] Nov, Type 2 diabetes mellitus with hyperglycemia E11.65 [facility] [address] [facility] [id number] [place] [address] 16 Nov, 2017 Essential hypertension I10 [facility] [place] [address] [facility] [address] [id number] [place] [id number] Oct, Restless legs syndrome G25.81 [facility] [place] [address] [facility] [address] [id number] [place] [id number] 10 Aug, 2017 Type 2 diabetes mellitus with hyperglycemia E11.65 ; Restless legs syndrome G25.81 ; Fibromyalgia M79.7 ; Essential hypertension I10 and Urinary urgency R39.15 [facility] [place] [address] [facility] [address] [id number] [place] [id number] May, [facility] [place] [address] [place] [address] [address] [id number] [place] [id number] 16 May, 2017 Type 2 diabetes mellitus with hyperglycemia E11.65 [facility] [place] [address] [place] [address] C [id number] [place] [id number] May, [facility] [place] [address] [place] [address] [address] [id number] [place] [id number] 19 Apr, 2017 Type 2 diabetes mellitus with hyperglycemia E11.65 [facility] [place] [address] [place] [address] [address] [id number] [place] [id number] 15 Apr, 2017 [facility] [place] [address] [place] [address] C [id number] [place] [id number] 11 Apr, 2017 Hospital discharge follow-up Z09 ; Cardiac murmur, unspecified R01.1 ; Tobacco abuse Z72.0 and Chronic obstructive pulmonary disease, unspecified COPD type J44.9 [facility] [place] [address] [place] [address] [address] [id number] [place] [id number] Mar, Type 2 diabetes mellitus with hyperglycemia E11.65 [facility] [place] [address] [facility] [address] [id number] [place] 653004[address] Feb, Type 2 diabetes mellitus with hyperglycemia E11.65 and Essential hypertension I10 [facility] [place] [address] [facility] [address] [id number] [place] 528897231 Feb, Restless legs syndrome G25.81 ; Type 2 diabetes mellitus with hyperglycemia E11.65 ; Essential hypertension I10 and Right upper quadrant pain R10.11 [facility] [place] [address] [facility] [address] [id number] [place] [id number] Feb, [facility] [place] [address] [facility] [address] [id number] [place] [id number] Feb, [facility] [place] [address] [facility] [address] [id number] [place] 554460211 Jan, Type 2 diabetes mellitus with hyperglycemia E11.65 and Right sided abdominal pain R10.9 [facility] [place] [address] [facility] [address] [id number] [place] [id number] Jan, [facility] [place] [address] [facility] [address] [id number] [place] [id number] Jan, Nausea R11.0 ; Essential hypertension I10 and Dizziness R42 [facility] [place] [address] [facility] [address] [id number] [place] 985249774 Jan, [facility] [place] [address] [facility] [address] [id number] [place] [id number] Nov, [facility] [place] [address] [place] [address] [address] [id number] [place] [id number] Nov, [facility] [place] [address] [facility] [address] [id number] [place] [id number] Oct, [facility] [place] [address] [place] [address] [address] [id number] [place] [id number] Oct, [facility] [place] [address] [place] [address] [address] [id number] [place] [id number] Oct, [facility] [place] [address] [place] [address] [address] [id number] [place] 040[address]1727 Sep, [facility] [address] [facility] [id number] [place] [address] Sep, Ganglion of tendon M67.40 and DM neuro manif type II E11.40 [facility] [place] [address] [facility] [address] [id number] [place] 421536605 Aug, Pure hyperglyceridemia E78.1 [facility] [place] [address] [place] [address] [address] [id number] [place] 831423182 Aug, [facility] [place] [address] [id number] [place] [id number] Aug, [facility] [place] [address] [id number] [place] 047894228 Aug, [facility] [place] [address] [facility] [address] [id number] [place] [address] Aug, Fibromyalgia M79.7 [facility] [place] [address] [id number] [place] 72550[address] Aug, [facility] [place] [address] [facility] [address] [id number] [place] 649638975 Aug, Fibromyalgia M79.7 [facility] [place] [address] [id number] [place] [address]87 Aug, Fibromyalgia M79.7 ; Mass of right foot R22.41 and Type 2 diabetes mellitus with hyperglycemia E11.65 [facility] [place] [address] [facility] [address] [id number] [place] [id number] Jun, [facility] [place] [address] [facility] [address] [id number] [place] 517449351 Jun, Furuncle L02.92 and Methicillin resistant Staph aureus culture positive Z22.322 [facility] [place] [address] [facility] [address] [id number] [place] 2276[address]116 04 Jun, 2016 Furuncle L02.92 ; Cellulitis of other specified site L03.818 and Methicillin resistant Staph aureus culture positive Z22.322 [facility] [place] [address] [id number] [place] 768034677 Jun, [facility] [place] [address] [facility] [address] [id number] [place] 405[address]3585 Jun, Furuncle L02.92 and Cellulitis of other specified site L03.818 [facility] [place] [address] [id number] [place] 958933734 May, Pure hyperglyceridemia E78.1 ; Abscess L02.91 ; Restless legs syndrome G25.81 and Type 2 diabetes mellitus with hyperglycemia E11.65 [facility] [place] [address] [id number] [place] [id number] May, [facility] [place] [address] [facility] [address] [id number] [place] [id number] May, [facility] [place] [address] [facility] [address] [id number] [place] 36[address]2577 May, [facility] [place] [address] [facility] [address] [id number] [place] 985793938 Apr, [facility] [place] [address] [facility] [address] [id number] [place] 459[address] Mar, Well woman exam Z01.419 ; Encounter for screening mammogram for breast cancer Z12.31 and History of cervical cancer Z85.41 [facility] [place] [address] [facility] [address] [id number] [place] 913470694 Mar, Insect bite, multiple W57.XXXA ; Type 2 diabetes mellitus with diabetic neuropathy, unspecified E11.40 ; Essential (primary) hypertension I10 ; DM neuro manif type II E11.40 and Restless legs syndrome G25.81 [facility] [place] [address] [facility] [address] [id number] [place] 414383509 Feb, [facility] [place] [address] [facility] [address] [id number] [place] 128590262 Feb, [facility] [place] [address] [facility] [address] [id number] [place], [place] [id number] Feb, [facility] [place] [address] [facility] [address] [id number] [place] 287778647 Jan, [facility] [place] [address] [facility] [address] [id number] [place], [place] 332481306 Jan, [facility] [place] [address] [facility] [address] [id number] [place] 575957528 Jan, Abscess L02.91 [facility] [place] [address] [facility] [address] [id number] [place] 948568147 December, DM neuro manif type II E11.40 ; Pure hyperglyceridemia E78.1 ; Essential (primary) hypertension I10 and Type 2 diabetes mellitus without complication E11.9 [facility] [place] [address] [facility] [address] [id number] [place] [id number] Oct, [facility] [place] [address] [facility] [address] [id number] [place] 305553840 Sep, [facility] [place] [address] [facility] [address] [id number] [place] 770420978 Sep, [facility] [place] [address] [facility] [address] [id number] [place] 309349974 Sep, [facility] [place] [address] [facility] [address] [id number] [place] 075127505 Sep, Type 2 diabetes mellitus without complication E11.9 ; Pure hyperglyceridemia E78.1 ; Cardiac murmur, unspecified R01.1 and Essential (primary) hypertension I10 [facility] [place] [address] [facility] [address] [id number] [place] 858979492 Aug, [facility] [place] [address] [facility] [address] [id number] [place] [id number] Jul, [facility] [place] [address] [facility] [address] [id number] [place] 850701337 Jul, [facility] [place] [address] [facility] [address] [id number] [place], [place] [id number] Jun, [facility] [place] [address] [facility] [address] [id number] [place] 265652741 Jun, [facility] [place] [address] [facility] [address] [id number] [place] [id number] May, [facility] [place] [address] [facility] [address] [id number] [place] 280182894 May, [facility] [place] [address] [facility] [address] [id number] [place], [place] [id number] May, [facility] [place] [address] [facility] [address] [id number] [place] [id number] May, [facility] [place] [address] [facility] [address] [id number] [place] [id number] May, [facility] [place] [address] [facility] [address] [id number] [place] [id number] May, [facility] [place] [address] [facility] [address] [id number] [place] [id number] Apr, Onychomycosis 110.1 [facility] [place] [address] [place] [address] C [id number] [place] [id number] Apr, [facility] [place] [address] [place] [address] C [id number] [place] [id number] Apr, Nail dystrophy 703.8 [facility] [place] [address] [place] [address] C [id number] [place] [id number] 08 Apr, 2015 Ingrown nail 703.0 [facility] [place] [address] [place] [address] C [id number] [place] [id number] 04 Apr, 2015 Ingrown nail 703.0 [facility] [place] [address] [place] [address] C [id number] [place] [id number] Mar, [facility] [place] [address] [place] [address] C [id number] [place] [id number] Mar, Diabetic neuropathy 250.60 ; Fibromyalgia 729.1 and Lumbago 724.2 [facility] [place] [address] [place] [address] C [id number] [place] [id number] Mar, [facility] [place] [address] [place] [address] C [id number] [place], [place] [id number] Jan, Diabetes mellitus without mention of complication, type II or unspecified type, uncontrolled 250.02 and Hypomagnesemia 275.2 [facility] [place] [address] [place] [address] C [id number] [place] 927993653 Jan, [facility] [place] [address] [place] [address] C [id number] [place] 352273144 Jan, Coronary atherosclerosis of unspecified type of vessel, sw[place] or graft 414.00 ; Essential hypertension, benign 401.1 ; Other and unspecified hyperlipidemia 272.4 ; Diabetes mellitus without mention of complication, type II or unspecified type, uncontrolled 250.02 ; Depressive disorder, not elsewhere classified 311 and Restless legs syndrome [RLS] 333.94 [facility] [place] [address] [place] [address] C [id number] [place] [id number] Jan, [facility] [place] [address] [place] [address] C [id number] [place] 600667373 December, Sciatica 724.3 ; Muscle spasm 728.85 ; UTI (urinary tract infection) 599.0 and Dysuria 788.1 [facility] [place] [address] [id number] [place], [place] 437362493 December, [facility] [place] [address] [facility] [address] [id number] [place] 767183715 December, Scabies 133.0 and Leg pain 729.5 [facility] [address] [facility] [id number] [place] [address] Nov, [facility] [address] [facility] [id number] [place] [address] Nov, [facility] [place] [address] [facility] [address] [id number] [place] 593113420 Aug, [facility] [address] [facility] [id number] [place] [address] Aug, [facility] [place] [address] [facility] [address] [id number] [place] [id number] Jul, [facility] [address] [facility] [id number] [place] [address] Jul, [facility] [place] [address] [facility] [address] [id number] [place] [id number] Jul, [facility] [address] [facility] [id number] [place] [address] Jul, [facility] [place] [address] [facility] [address] [id number] [place] [id number] Jul, [facility] [address] [facility] [id number] [place] [address] Jul, [facility] [place] [address] [facility] [address] [id number] [place] 131644251 Jun, [facility] [address] [facility] [id number] [place] [address] Jun, [facility] [place] [address] [facility] [address] [id number] [place] 558609587 Jun, [facility] [place] [facility] [address] [id number] [place] [address] Jun, [facility] [place] [address] [id number] [place] 422458280 May, [facility] [place] [facility] [address] [facility] [id number] [place] [address] May, [facility] [place] [facility] [address] [id number] [place] [address] Apr, [facility] [place] [facility] [address] [id number] [place] [address] Apr, [facility] [place] [address] [facility] [address] [id number] [place], [place] 222558886 Apr, [facility] [place] [facility] [address] [facility] [id number] [place] [address] Apr, [facility] [place] [address] [facility] [address] [id number] [place] [id number] Apr, [facility] [place] [facility] [address] [id number] [place] [address] Apr, [facility] [place] [facility] [address] [id number] [place] [address] Apr, [facility] [place] [address] [facility] [address] [id number] [place] [id number] Apr, [facility] [place] [facility] [address] [id number] [place] [address] Apr, [facility] [place] [address] [facility] [address] [id number] [place] 818249110 Apr, [facility] [place] [facility] [address] [id number] [facility] [address] 12 Apr, 2014 [facility] [place] [facility] [address] [id number] [place] [address] Apr, [facility] [place] [address] [id number] [place], [place] [id number] 08 Apr, 2014 [facility] [place] [address] [id number] [place], [place] 519360103 Apr, [facility] [place] [facility] [address] [id number] [facility] [place] [address] Apr, [facility] [place] [facility] [address] [id number] [facility] [place] [address] Apr, [facility] [place] [address] [facility] [address] [id number] [place] [id number] Mar, [facility] [place] [facility] [address] [id number] [place] [address] Mar, [facility] [place] [address] [facility] [address] [id number] [place] 768564125 Mar, [facility] [place] [facility] [address] [id number] [place] [address] Mar, [facility] [place] [address] [facility] [address] [id number] [place] [id number] Feb, [facility] [place] [facility] [address] [id number] [facility] [place] [address] Feb, [facility] [place] [address] [facility] [address] [id number] [place] [id number] December, [facility] [place] [facility] [address] [id number] [facility] [place] [address] December, [facility] [place] [address] [facility] [address] [id number] [place], [place] 614424327 December, [facility] [place] [facility] [address] [id number] [facility] [place] [address] December, [facility] [place] [address] [facility] [address] [id number] [place] [id number] Nov, [facility] [place] [facility] [address] [id number] [place] [address] Nov, [facility] [place] [address] [facility] [address] [id number] [place] 301693278 Nov, [facility] [place] [facility] [address] [facility] [id number] [facility] [place] [address] Nov, 2013 [facility] [place] [address] [id number] [place] 530379037 Nov, [facility] [address] [id number] [place] [address] Nov, [facility] [place] [facility] [address] [id number] [place] [address] Oct, [facility] [place] [facility] [address] [id number] [place] [address] Oct, [facility] [place] [facility] [address] [id number] [place] [address] Aug, [facility] [place] [facility] [address] [id number] [place] [address] Aug, [facility] [place] [address] [id number] [place] [id number] Aug, [facility] [place] [facility] [address] [id number], [place] [address] Aug, [facility] [place] [facility] [address] [id number] [place] [address] Aug, [facility] [place] [facility] [address] [facility] [id number], [place] [address] Aug, [facility] [place] [address] [id number] [place] [id number] Jul, [facility] [place] [facility] [address] [id number], [place] [address] Jul, [facility] [place] [facility] [address] [id number], [place] [address] Jul, [facility] [place] [facility] [address] [id number] [place] [address] Jul, [facility] [place] [facility] [address] [facility] [id number], [place] [address] Jun, [facility] [place] [facility] [address] [facility] [id number], [place] [address] 12 Jun, 2013 [facility] [place] [facility] [address] [id number] [place] [address] 12 Jun, 2013 [facility] [place] [facility] [address] [id number] [place] [address] 08 Jun, 2013 [facility] [place] [facility] [address] [id number] [place] [address] 08 Jun, 2013 [facility] [place] [facility] [address] [id number] [place] [address] 07 Jun, 2013 [facility] [place] [facility] [address] [id number] [place] [address] 07 Jun, 2013 [facility] [place] [facility] [address] [id number] [place] [address] Jun, [facility] [place] [facility] [address] [id number] [place] [address] Jun, [facility] [place] [facility] [address] [id number] [place] [address] 18 May, 2013 [facility] [place] [facility] [address] [id number] [place] [address] 18 May, 2013 [facility] [place] [facility] [address] [id number] [place] [address] 16 May, 2013 [facility] [place] [facility] [address] [id number], [place] [address] 16 May, 2013 [facility] [place] [facility] [address] [id number], [place] [address] 14 May, 2013 [facility] [place] [facility] [address] [id number] [place] [address] 14 May, 2013 [facility] [place] [facility] [address] [id number], [place] [address] 04 May, 2013 [facility] [place] [facility] [address] [id number] [place] [address] 04 Apr, 2013 [facility] [place] [facility] [id number] [address] Mar, [facility] [id number] [address] Mar, [facility] [id number], [place] [address] Mar, [facility] [id number], [place] [address] Mar, [facility] [id number], [place] [address] Feb, [facility] [id number] [place] [address] Feb, [facility] [id number], [place] [address] Feb, [facility] [id number] [place] [address] Feb, [facility] [id number], [place] [address] Feb, [facility] [id number], [place] [address] Feb, [facility] [id number], [place] [address] Jan, [facility] [id number], [place] [address] Jan, [facility] [address] [id number] [address] Jan, [facility] [id number], [place] [address] Jan, IMMUNIZATIONS No Known Immunizations SOCIAL HISTORY Never Assessed REASON FOR VISIT repository med request PLAN OF CARE VITAL SIGNS MEDICATIONS Medication Instructions Dosage Frequency Start Date End Date Duration Status MetFORMIN HCl ER 500 mg Orally 2 times a day 1 tablet with evening meal 12h Jan, 30 day(s) Active Protonix 40 MG Orally Once a day 1 packet 24h 20 Apr, 2017 30 day(s) Active RESULTS No Results PROCEDURES No Known procedures INSTRUCTIONS MEDICATIONS ADMINISTERED No Known Medications MEDICAL (GENERAL) HISTORY Type Description Date Medical History Atherosclerotic heart disease of [place] coronary artery without angina pectoris Medical History [...]
--- OUTSIDE RECORDS SUMMARY | 2019-02-01 09:26 | XMS REPORT ---
Author JEAN-PIERRE Smith Organization [employer] Address Unknown Phone Unavailable Care Team Providers Care Engraver Jewelry Name Role Phone JEAN-PIERRE PARRISH CP Unavailable [...] unspecified type of vessel, [place] or graft 414.00 Active Problem Chest pain, [...]
--- OUTSIDE RECORDS SUMMARY | 2019-02-01 09:26 | XMS REPORT ---
Author [facility] Address [address] [place] [address] Care Team Providers Care Master Of Ceremonies Name Role Phone JEAN-PIERRE PARRISH Unavailable PROBLEMS Type Condition ICD9-CM Code DIQ08-RL Code Onset Dates Condition Status SNOMED Code Problem Solitary pulmonary nodule 793.11 Active 219753940 Problem Chest pain, unspecified 786.50 Active 85794508 Problem Personal history of tobacco use, presenting hazards to health V15.82 Active 3149205543400 Problem Other dyspnea and respiratory abnormalities 786.09 Active 029945048 Problem Shortness of breath 786.05 Active 805304094 Problem Undiagnosed cardiac murmurs 785.2 Active 919771508 Problem Pain in soft tissues of limb 729.5 Active 08725873 Problem Unspecified myalgia and myositis 729.1 Active 633397655 Problem Diabetic neuropathy 250.60 Active 268664082 Problem Pain in joint, forearm 719.43 Active 869063909 Problem Type 2 diabetes mellitus without complication E11.9 Active 36137790 Problem Hidradenitis 705.83 Active 94541412 Problem Cardiac murmur, unspecified R01.1 Active 277612836 Problem Pure hyperglyceridemia E78.1 Active 968744348 Problem Essential (primary) hypertension I10 Active 93995193 Problem Essential hypertension I10 Active 22349633 Problem DM neuro manif type II E11.40 Active 955944542 Problem Unspecified essential hypertension 401.9 Active 32628367 Problem Coronary atherosclerosis of unspecified type of vessel, [place] or graft 414.00 Active 541080859 Problem Unspecified hypertrophic and atrophic condition of skin 701.9 Active 838552850 Problem Type 2 diabetes mellitus with diabetic neuropathy, unspecified E11.40 Active 6679148472656 Problem Type 2 diabetes mellitus with hyperglycemia E11.65 Active 352989810356920 Problem Fibromyalgia M79.7 Active 796577826 Problem Restless legs syndrome G25.81 Active 43995654 Problem Nondependent tobacco use disorder 305.1 Active 103959973 Problem Other and unspecified hyperlipidemia 272.4 Active 31978105 Problem Essential hypertension, benign 401.1 Active 7444247 Problem Depressive disorder, not elsewhere classified 311 Active 68136422 Problem Restless legs syndrome [RLS] 333.94 Active 81915834 Problem Hypomagnesemia 275.2 Active 342219991 Problem Pure hyperglyceridemia 272.1 Active 152548868 Problem Diabetes mellitus without mention of complication, type II or unspecified type, uncontrolled 250.02 Active 096539057 ALLERGIES Unknown Allergies SOCIAL HISTORY No smoking Hx information available PLAN OF CARE VITAL SIGNS MEDICATIONS Unknown Medications RESULTS No Results PROCEDURES No Known procedures IMMUNIZATIONS No Known Immunizations
--- OUTSIDE RECORDS SUMMARY | 2019-02-01 09:26 | XMS REPORT ---
Author Author SJ ALY [facility] [employer] Address Unknown Phone Unavailable Care Team Providers Care Pill Maker Name Role Phone SJ ALY CP Unavailable Allergies, Adverse Reactions, Alerts Substance Reaction Event Type Hydrocodone-Acetaminophen itching Drug Allergy Acetaminophen-Codeine #3 itching Drug Allergy Problems Problem Type Condition Code Onset Dates Condition Status Assessment Methicillin resistant Staph aureus culture positive [...] Coronary atherosclerosis of unspecified type of vessel, [place] or graft 414.00 Active Problem Chest pain, [...] Instructions Start Date End Date Status Dosage Lisinopril [facility]NOTE 3] [address]-35 2.5 MG Orally Once a day 1 tablet Toprol XL [facility][NOTE 3] [address]-28 100 MG Orally Sep 05, 2014 take 1 tablet by Oral route 1 time per day Atorvastatin Calcium [facility]NOTE 3] [address]-22 40 mg Orally Once a day Jun 16, 2016 1 tablet Aspirin [facility]NOTE 3] [address]-09 81 mg January 27, 2013 1 tablet by Oral route 1 time per day Gabapentin [facility][NOTE 3] [address]-77 600 MG Orally Three times a day January 03, 2015 1 tablet Ventolin HFA [facility]NOTE 3] [address]-98 90 MCG/ACT Inhalation every 4 hrs 2 puffs as needed Cymbalta [facility][NOTE 3] [address]-12 60 mg November 28, 2013 1 Capsule by Oral route 1 time per day Advair Diskus [facility][NOTE 3] [address]-34 250-50 MCG/DOSE by inhalation route Twice a day 1 puff Metoprolol Tartrate [facility][NOTE 3] [address]-47 50 mg November 28, 2013 take 1 tablet by Oral route 2 times per day Bactrim DS [facility][NOTE 3] [address]-17 800-160 MG Orally Twice a day Jun 16, 2016 Jun 26, 2016 1 tablet metformin [facility][NOTE 3] [address]-23 1,000 mg Aug 04, 2014 take 1 tablet by Oral route 2 times per day PredniSONE [facility][NOTE 3] [address]-26 20 mg Orally Once a day Mar 17, 2016 2 tabs daily x 4 days then 1 tab daily x 4 days BusPIRone HCl [facility][NOTE 3] [address]-29 10 mg Orally Twice a day March 11, 2016 Take 1 tablet Ropinirole HCl [facility][NOTE 3] [address]-72 0.5 MG Orally @ HS Jun 19, 2016 3 tablets Procedures Procedure Coding System Code Date Office Visit, Est Pt., Level 3 CPT-4 00408 Jun 25, 2016 Vital Signs Date/Time: Jun 25, 2016 Cardiac Monitoring Heart Rate 80 bpm Weight 156.8 lbs Height 63 in BMI 27.77 Index Blood Pressure Diastolic 76 mmHg Blood Pressure Systolic 142 mmHg Results No Known Results Summary Purpose [employer] Submission
--- OUTSIDE RECORDS SUMMARY | 2019-02-01 09:26 | XMS REPORT ---
Author EMORY Nunez Organization [employer] Address Unknown Phone Unavailable Care Team Providers Care Rehab Services Aide Name Role Phone EMORY NEGRETE CP Unavailable Allergies No Known Allergies Problems [...] Coronary atherosclerosis of unspecified type of vessel, [place] or graft 414.00 Active Problem Chest pain, [...] Instructions Start Date End Date Status Dosage Fenofibrate [facility] [address]-79 150 MG May 25, 2015 1 capsule by mouth once daily with food Results No Known Results Summary Purpose [employer] Submission
--- OUTSIDE RECORDS SUMMARY | 2019-02-01 09:26 | XMS REPORT ---
Author Author SJ ALY Organization [employer] Address Unknown Phone Unavailable Care Team Providers Care Boilermaker Helper Name Role Phone SJ ALY CP Unavailable [...] Coronary atherosclerosis of unspecified type of vessel, [place] or graft 414.00 Active Problem Chest pain, [...] Start Date End Date Status Dosage Gabapentin [facility] [address]-79 300 MG Orally Three times a day January 03, 2015 2 capsule Results No Known Results Summary Purpose [employer] Submission
--- OUTSIDE RECORDS SUMMARY | 2019-02-01 09:27 | XMS REPORT ---
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 Name Role Phone ALYSJ Unavailable PROBLEMS Type Condition ICD9-CM Code GKC93-ZX Code Onset Dates Condition Status SNOMED Code Problem Personal history of tobacco use, presenting hazards to health V15.82 Active 4868207148408 Problem Solitary pulmonary nodule 793.11 Active 910177342 Problem Other dyspnea and respiratory abnormalities 786.09 Active 866003447 Problem Chest pain, unspecified 786.50 Active 87867108 Problem Shortness of breath 786.05 Active 618797880 Problem Undiagnosed cardiac murmurs 785.2 Active 556424317 Problem Pain in soft tissues of limb 729.5 Active 56904244 Problem Unspecified myalgia and myositis 729.1 Active 670013282 Problem Pain in joint, forearm 719.43 Active 048892746 Problem Type 2 diabetes mellitus without complication E11.9 Active 91464550 Problem Hidradenitis 705.83 Active 74833923 Problem Cardiac murmur, unspecified R01.1 Active 611366369 Problem Unspecified hypertrophic and atrophic condition of skin 701.9 Active 656213038 Problem Essential (primary) hypertension I10 Active 19689796 Problem Type 2 diabetes mellitus with hyperglycemia E11.65 Active 979519497142659 Problem Pure hyperglyceridemia E78.1 Active 274534205 Problem Chronic obstructive pulmonary disease, unspecified COPD type J44.9 Active 42058818 Problem Essential hypertension I10 Active 50647493 Problem Essential hypertension, benign 401.1 Active 9116975 Problem Unspecified essential hypertension 401.9 Active 72853532 Problem Coronary atherosclerosis of unspecified type of vessel, unalak[place]et or graft 414.00 Active 313205768 Problem Restless legs syndrome G25.81 Active 17700403 Problem Type 2 diabetes mellitus with diabetic neuropathy, unspecified E11.40 Active 1448619432028 Problem DM neuro manif type II E11.40 Active 973974972 Problem Fibromyalgia M79.7 Active 041009584 Problem Other and unspecified hyperlipidemia 272.4 Active 27032864 Problem Pure hyperglyceridemia 272.1 Active 088899063 Problem Depressive disorder, not elsewhere classified 311 Active 96168071 Problem Nondependent tobacco use disorder 305.1 Active 951465640 Problem Hypomagnesemia 275.2 Active 919401790 Problem Diabetic neuropathy 250.60 Active 195142013 Problem Diabetes mellitus without mention of complication, type II or unspecified type, uncontrolled 250.02 Active 287070535 Problem Restless legs syndrome [RLS] 333.94 Active 12229287 ALLERGIES Substance Reaction Event Type Date Status Hydrocodone-Acetaminophen itching Drug Allergy Jan, Active Acetaminophen-Codeine #3 itching Drug Allergy Jan, Active ENCOUNTERS Encounter Location Date Diagnosis [facility] [address] [place] [address] C [id number] [place] [id number] Nov, [facility] [address] [place] [address] [id number] [place] [id number] Oct, Restless legs syndrome G25.81 [facility] [place] [address] [place] [address] [id number] [place], [place] [id number] Aug, Type 2 diabetes mellitus with hyperglycemia E11.65 ; Restless legs syndrome G25.81 ; Fibromyalgia M79.7 ; Essential hypertension I10 and Urinary urgency R39.[address] [facility] [place] [address] [place] [address] C [id number] [place], [place] [id number] May, [facility] [place] [address] [place] [address] C [id number] [place] [id number] May, Type 2 diabetes mellitus with hyperglycemia E11.[address] [facility] [place] [address] [place] [address] C [id number] [place], [place] [id number] May, [facility] [place] [address] [place] [address] C [id number] [place] 635356778 Apr, Type 2 diabetes mellitus with hyperglycemia E11.65 [facility] [place] [address] [place] [address] C [id number] [place] [id number] Apr, [facility] [place] [address] [place] [address] C [id number] [place] [id number] 11 Apr, 2017 Hospital discharge follow-up Z09 ; Cardiac murmur, unspecified R01.1 ; Tobacco abuse Z72.0 and Chronic obstructive pulmonary disease, unspecified COPD type J44.9 [facility] [place] [address] [facility] [address] [id number] [place] [id number] Mar, Type 2 diabetes mellitus with hyperglycemia E11.65 [facility] [place] [address] [facility] [address] [id number] [place] 457495021 Feb, Type 2 diabetes mellitus with hyperglycemia E11.65 and Essential hypertension I10 [facility] [place] [address] [facility] [address] [id number] [place] 542898485 Feb, Restless legs syndrome G25.81 ; Type 2 diabetes mellitus with hyperglycemia E11.65 ; Essential hypertension I10 and Right upper quadrant pain R10.11 [facility] [place] [address] [facility] [address] [id number] [place] [id number] Feb, [facility] [place] [address] [facility] [address] [id number] [place] [id number] Feb, [facility] [place] [address] [facility] [address] [id number] [place] 030785563 Jan, Type 2 diabetes mellitus with hyperglycemia E11.65 and Right sided abdominal pain R10.9 [facility] [place] [address] [facility] [address] [id number] [place] 117152395 Jan, [facility] [place] [address] [facility] [address] [id number] [place] [id number] Jan, Nausea R11.0 ; Essential hypertension I10 and Dizziness R42 [facility] [place] [address] [facility] [address] [id number] [place] 020467455 Jan, [facility] [place] [address] [facility] [address] [id number] [place] [id number] Nov, [facility] [place] [address] [facility] [address] [id number] [place] 225944860 Nov, [facility] [place] [address] [facility] [address] [id number] [place] 806146926 Oct, [facility] [place] [address] [facility] [address] [id number] [place] 982141871 Oct, [facility] [place] [address] [id number] [place] [id number] Oct, [facility] [place] [address] [facility] [address] [id number] [place] 601727291 Sep, [facility] [address] [facility] [id number] [place] [address] 17 Sep, 2016 Ganglion of tendon M67.40 and DM neuro manif type II E11.40 [facility] [place] [address] [facility] [address] [id number] [place] 484323542 Aug, Pure hyperglyceridemia E78.1 [facility] [place] [address] [facility] [address] [id number] [place] 562197601 Aug, [facility] [place] [address] [facility] [address] [id number] [place] 755904548 Aug, [facility] [place] [address] [facility] [address] [id number] [place] 117726588 Aug, [facility] [place] [address] [facility] [address] [id number] [place] [id number] Aug, Fibromyalgia M79.7 [facility] [place] [address] [facility] [address] [id number] [place] 656309291 Aug, [facility] [place] [address] [facility] [address] [id number] [place] 917700130 Aug, Fibromyalgia M79.7 [facility] [place] [address] [facility] [address] [id number] [place] 822239691 Aug, Fibromyalgia M79.7 ; Mass of right foot R22.41 and Type 2 diabetes mellitus with hyperglycemia E11.65 [facility] [place] [address] [id number] [place] 657558174 Jun, [facility] [place] [address] [id number] [place] 166354950 Jun, Furuncle L02.92 and Methicillin resistant Staph aureus culture positive Z22.322 [facility] [place] [address] [id number] [place], [place] 903896927 Jun, Furuncle L02.92 ; Cellulitis of other specified site L03.818 and Methicillin resistant Staph aureus culture positive Z22.322 [facility] [place] [address] [facility] [address] [id number] [place] 533601564 Jun, [facility] [place] [address] [facility] [address] [id number] [place] 884012196 Jun, Furuncle L02.92 and Cellulitis of other specified site L03.818 [facility] [place] [address] [facility] [address] [id number] [place] 267908852 May, Pure hyperglyceridemia E78.1 ; Abscess L02.91 ; Restless legs syndrome G25.81 and Type 2 diabetes mellitus with hyperglycemia E11.65 [facility] [place] [address] [facility] [address] [id number] [place] 733838896 May, [facility] [place] [address] [facility] [address] [id number] [place] 331170084 May, [facility] [place] [address] [facility] [address] [id number] [place] 452672652 May, [facility] [place] [address] [facility] [address] [id number] [place] 151626026 Apr, [facility] [place] [address] [facility] [address] [id number] [place] 825646235 Mar, Well woman exam Z01.419 ; Encounter for screening mammogram for breast cancer Z12.31 and History of cervical cancer Z85.41 [facility] [place] [address] [facility] [address] [id number] [place] 711638719 Mar, Insect bite, multiple W57.XXXA ; Type 2 diabetes mellitus with diabetic neuropathy, unspecified E11.40 ; Essential (primary) hypertension I10 ; DM neuro manif type II E11.40 and Restless legs syndrome G25.81 [facility] [place] [address] [facility] [address] [id number] [place] 415890394 Feb, [facility] [place] [address] [facility] [address] [id number] [place] 052090129 Feb, [facility] [place] [address] [facility] [address] [id number] [place] 557477632 Feb, [facility] [place] [address] [facility] [address] [id number] [place] [id number] Jan, [facility] [place] [address] [facility] [address] [id number] [place] 841250236 Jan, [facility] [place] [address] [facility] [address] [id number] [place], [place] 686513885 Jan, Abscess L02.91 [facility] [place] [address] [facility] [address] [id number] [place] 831450506 December, DM neuro manif type II E11.40 ; Pure hyperglyceridemia E78.1 ; Essential (primary) hypertension I10 and Type 2 diabetes mellitus without complication E11.9 [facility] [place] [address] [facility] [address] [id number] [place] 736833498 Oct, [facility] [place] [address] [facility] [address] [id number] [place] 898494985 Sep, [facility] [place] [address] [facility] [address] [id number] [place] 986804782 Sep, [facility] [place] [address] [facility] [address] [id number] [place] [id number] Sep, [facility] [place] [address] [facility] [address] [id number] [place] 636009211 Sep, Type 2 diabetes mellitus without complication E11.9 ; Pure hyperglyceridemia E78.1 ; Cardiac murmur, unspecified R01.1 and Essential (primary) hypertension I10 [facility] [place] [address] [facility] [address] [id number] [place] 818106473 Aug, [facility] [place] [address] [facility] [address] [id number] [place] 820506717 Jul, [facility] [place] [address] [facility] [address] [id number] [place] 757812841 Jul, [facility] [place] [address] [facility] [address] [id number] [place] 582098713 Jun, [facility] [place] [address] [facility] [address] [id number] [place] 848227723 Jun, [facility] [place] [address] [facility] [address] [id number] [place] 821754281 May, [facility] [place] [address] [facility] [address] [id number] [place] [id number] May, [facility] [place] [address] [facility] [address] [id number] [place] 784872196 May, [facility] [place] [address] [facility] [address] [id number] [place], [place] 165097915 May, [facility] [place] [address] [place] [address] [address] [id number] [place] [id number] May, [facility] [place] [address] [place] [address] [address] [id number] [place], [place] 116086575 May, [facility] [place] [address] [place] [address] [address] [id number] [place] 584412527 Apr, Onychomycosis 110.1 [facility] [place] [address] [place] [address] [address] [id number] [place] [id number] 15 Apr, 2015 [facility] [place] [address] [place] [address] [address] [id number] [place] [id number] 14 Apr, 2015 Nail dystrophy 703.8 [facility] [place] [address] [place] [address] [address] [id number] [place] [id number] 08 Apr, 2015 Ingrown nail 703.0 [facility] [place] [address] [place] [address] [address] [id number] [place] [id number] 04 Apr, 2015 Ingrown nail 703.0 [facility] [place] [address] [place] [address] [address] [id number] [place] 975883394 Mar, [facility] [place] [address] [place] [address] [address] [id number] [place] 723833123 Mar, Diabetic neuropathy 250.60 ; Fibromyalgia 729.1 and Lumbago 724.2 [facility] [place] [address] [place] [address] [address] [id number] [place] 895983049 Mar, [facility] [place] [address] [place] [address] [address] [id number] [place] 798196809 Jan, Diabetes mellitus without mention of complication, type II or unspecified type, uncontrolled 250.02 and Hypomagnesemia 275.2 [facility] [place] [address] [place] [address] [address] [id number] [place] 342158580 Jan, [facility] [place] [address] [facility] [address] [id number] [place] [id number] Jan, Coronary atherosclerosis of unspecified type of vessel, unalakleet or graft 414.00 ; Essential hypertension, benign 401.1 ; Other and unspecified hyperlipidemia 272.4 ; Diabetes mellitus without mention of complication, type II or unspecified type, uncontrolled 250.02 ; Depressive disorder, not elsewhere classified 311 and Restless legs syndrome [RLS] 333.94 [facility] [place] [address] [place] [address] C [id number] [place] [id number] Jan, [facility] [place] [address] [place] [address] C [id number] [place] 779397925 December, Sciatica 724.3 ; Muscle spasm 728.85 ; UTI (urinary tract infection) 599.0 and Dysuria 788.[address] [facility] [place] [address] [place] [address] [id number] [place] 946751570 December, [facility] [place] [address] [place] [address] C [id number] [place] [id number] December, Scabies 133.0 and Leg pain 729.5 [facility] [place] [address] [address] Nov, [facility] [place] [address] [address] Nov, [facility] [address] [place] [address] [id number] [place] [id number] Aug, [facility] [place] [address] [address] Aug, [facility] [address] [place] [address] [id number] [place] [id number] Jul, [facility] [place] [address] [address] Jul, [facility] [address] [place] [address] [id number] [place] [id number] Jul, [facility] [place] [address] [place] [id number] [place] [address] Jul, [facility] [place] [address] [facility] [address] [id number] [place] [id number] Jul, [facility] [address] [facility] [id number] [place] [address] Jul, [facility] [place] [address] [facility] [address] [id number] [place] 885405323 Jun, [facility] [address] [facility] [id number] [place] [address] Jun, [facility] [place] [address] [facility] [address] [id number] [place] [id number] Jun, [facility] [address] [facility] [id number] [place] [address] Jun, [facility] [place] [address] [facility] [address] [id number] [place] 154478637 May, [facility] [address] [facility] [id number] [place] [address] May, [facility] [place] [facility] [address] [facility] [id number] [place] [address] Apr, [facility] [address] [facility] [id number] [place] [address] Apr, [facility] [place] [address] [facility] [address] [id number] [place] 642125651 Apr, [facility] [place] [facility] [address] [facility] [id number] [place] [address] Apr, [facility] [place] [address] [facility] [address] [id number] [place] [id number] Apr, [facility] [place] [facility] [address] [facility] [id number] [place] [address] Apr, [facility] [place] [facility] [address] [facility] [id number] [place] [address] Apr, [facility] [place] [address] [facility] [address] [id number] [place] 158660401 Apr, [facility] [place] [facility] [address] [id number] [place] [address] Apr, [facility] [place] [address] [facility] [address] [id number] [place] [id number] Apr, [facility] [place] [facility] [address] [id number] [facility] [address] Apr, [facility] [place] [facility] [address] [id number] [facility] [address] Apr, [facility] [place] [address] [id number] [place] [id number] Apr, [facility] [place] [address] [id number] [place] 735932096 Apr, [facility] [place] [facility] [address] [facility] [id number] [facility] [address] Apr, [facility] [place] [facility] [address] [id number] [facility] [address] Apr, [facility] [place] [address] [facility] [address] [id number] [place] 660712902 Mar, [facility] [place] [facility] [address] [id number] [place] [address] Mar, [facility] [place] [address] [facility] [address] [id number] [place] [id number] Mar, [facility] [place] [facility] [address] [id number] [place] [address] Mar, [facility] [place] [address] [id number] [place] [id number] Feb, [facility] [place] [facility] [address] [id number] [place] [address] Feb, [facility] [place] [address] [facility] [address] [id number] [place] [id number] December, [facility] [place] [facility] [address] [facility] [id number] [facility] [address] December, [facility] [place] [address] [id number] [place] 115052361 December, [facility] [place] [facility] [address] [id number] [facility] [address] December, [facility] [place] [address] [id number] [place] 720401025 Nov, [facility] [address] [id number] [place] [address] Nov, [facility] [place] [address] [id number] [place] 614906459 Nov, [facility] [address] [id number] [place] [address] Nov, [facility] [place] [address] [facility] [address] [id number] [place] [id number] Nov, [facility] [address] [id number] [place] [address] Nov, [facility] [place] [facility] [address] [id number] [place] [address] Oct, [facility] [place] [facility] [address] [id number] [place] [address] Oct, [facility] [place] [facility] [address] [facility] [id number] [place] [address] Aug, [facility] [place] [facility] [address] [id number] [place] [address] Aug, [facility] [place] [address] [facility] [address] [id number] [place] [id number] Aug, [facility] [place] [facility] [address] [id number] [place] [address] Aug, [facility] [place] [facility] [address] [id number] [place] [address] Aug, [facility] [place] [facility] [address] [id number] [place] [address] Aug, [facility] [place] [address] [id number] [place] [id number] 13 Jul, 2013 [facility] [address] [id number] [place] [address] Jul, [facility] [place] [facility] [address] [id number] [place] [address] Jul, [facility] [address] [id number] [place] [address] Jul, [facility] [place] [facility] [address] [id number] [place] [address] Jun, [facility] [address] [id number] [place] [address] Jun, [facility] [place] [facility] [address] [id number] [place] [address] Jun, [facility] [place] [facility] [address] [id number] [place] [address] Jun, [facility] [address] [id number] [place] [address] 08 Jun, 2013 [facility] [place] [facility] [address] [id number] [place] [address] Jun, [facility] [address] [id number] [place] [address] 07 Jun, 2013 [facility] [place] [facility] [address] [id number] [place] [address] Jun, [facility] [place] [facility] [address] [id number] [address] 06 Jun, 2013 [facility] [place] [facility] [address] [id number] [place] [address] 18 May, 2013 [facility] [place] [facility] [address] [id number] [place] [address] 18 May, 2013 [facility] [place] [facility] [address] [id number] [place] [address] 16 May, 2013 [facility] [place] [facility] [address] [id number] [place] [address] 16 May, 2013 [facility] [place] [facility] [address] [id number] [place] [address] May, [facility] [place] [facility] [address] [id number] [place] [address] 14 May, 2013 [facility] [place] [facility] [address] [id number] [place] [address] May, [facility] [place] [facility] [address] [id number] [place] [address] Apr, [facility] [place] [facility] [address] [id number] [place] [address] Mar, [facility] [place] [facility] [address] [id number] [place] [address] Mar, [facility] [place] [facility] [address] [id number] [place] [address] Mar, [facility] [place] [facility] [address] [id number] [place] [address] Mar, [facility] [place] [facility] [address] [id number] [place] [address] Feb, [facility] [place] [facility] [address] [id number] [place] [address] Feb, [facility] [place] [facility] [address] [id number] [place] [address] Feb, [facility] [place] [facility] [address] [id number] [place] [address] Feb, [facility] [place] [facility] [address] [id number] [place] [address] Feb, [facility] [place] [facility] [address] [id number] [place] [address] Feb, [facility] [place] [facility] [address] [id number] [place] [address] Jan, [facility] [place] [address] [facility] [id number] [place] [address] Jan, [facility] [place] [address] [facility] [id number] [place] [address] Jan, [facility] [place] [address] [facility] [id number] [place] [address] Jan, IMMUNIZATIONS No Known Immunizations SOCIAL HISTORY Never Assessed REASON FOR VISIT Discuss possible medication changes, Rt. side pain, [employer] PLAN OF CARE Activity Details Follow Up prn, 2 Months Reason: VITAL SIGNS Height 63 in 2017-02-11 Weight 174.2 lbs 2017-02-11 Temperature 97.9 degrees Fahrenheit 2017-02-11 Heart Rate 86 bpm 2017-02-11 Respiratory Rate 18 2017-02-11 BMI 30.85 kg/m2 2017-02-11 Blood pressure systolic 193 mmHg 2017-02-11 Blood pressure diastolic 94 mmHg 2017-02-11 MEDICATIONS Medication Instructions Dosage Frequency Start Date End Date Duration Status Advair Diskus 250-50 MCG/DOSE by inhalation route Twice a day 1 puff 12h Active Metoprolol Tartrate 100 mg Orally Twice a day 1/2 tablet 12h Aug, Active Ventolin HFA 90 MCG/ACT Inhalation every 4 hrs 2 puffs as needed 4h Active Lisinopril 2.5 MG Orally Once a day 1 tablet 24h 90 days Active Cymbalta 60 mg 1 Capsule by Oral route 1 time per day Nov, Active Atorvastatin Calcium 40 mg Orally Once a day 1 tablet 24h May, Active Ropinirole HCl 0.5 MG Orally HS 3 tablets Jun, Active MetFORMIN HCl ER 500 mg Orally 2 times a day 1 tablet with evening meal 12h Jan, 30 day(s) Active Magnesium 250 MG Orally Once a day 1 tablet with a meal 24h Active RESULTS Name Result Date Reference Range A1C (IN HOUSE) 2017-02-11 A1C IN HOUSE 7.3 4.3 - 5.6 % Previous A1c 7.2 Lot [id number] Exp date 10/2018 UA LONG DIP (IN HOUSE) 2017-02-11 Lot # [id number] Exp date 10/2017 Clarity cloudy Color [id number] Odor yes GLU neg JOHN PAUL neg KET neg SG 1.015 BLO neg pH 7.0 Protein neg URO 0.2 e.u./dl NIT neg TAMMY neg Lot # Exp date PROCEDURES Procedure Date Ordered Result Body Site GLYCATED HEMOGLOBIN TEST February 11, 2017 URINALYSIS, AUTO, W/O SCOPE February 11, 2017 INSTRUCTIONS MEDICATIONS ADMINISTERED No Known Medications [...]
--- OUTSIDE RECORDS SUMMARY | 2019-02-01 09:28 | XMS REPORT ---
Author Author SJ 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 Name Role Phone ALYSJ Unavailable PROBLEMS Type Condition ICD9-CM Code OKT50-MM Code Onset Dates Condition Status SNOMED Code Problem Personal history of tobacco use, presenting hazards to health V15.82 Active 7627979529439 Problem Solitary pulmonary nodule 793.11 Active 840104607 Problem Other dyspnea and respiratory abnormalities 786.09 Active 498613992 Problem Chest pain, unspecified 786.50 Active 29324753 Problem Shortness of breath 786.05 Active 162838326 Problem Undiagnosed cardiac murmurs 785.2 Active 120704598 Problem Pain in soft tissues of limb 729.5 Active 75790253 Problem Unspecified myalgia and myositis 729.1 Active 683373165 Problem Pain in joint, forearm 719.43 Active 389744763 Problem Type 2 diabetes mellitus without complication E11.9 Active 82075886 Problem Hidradenitis 705.83 Active 32308650 Problem Cardiac murmur, unspecified R01.1 Active 828751205 Problem Unspecified hypertrophic and atrophic condition of skin 701.9 Active 721142925 Problem Essential (primary) hypertension I10 Active 26238198 Problem Type 2 diabetes mellitus with hyperglycemia E11.65 Active 513539536658338 Problem Pure hyperglyceridemia E78.1 Active 579257966 Problem Chronic obstructive pulmonary disease, unspecified COPD type J44.9 Active 95154199 Problem Essential hypertension I10 Active 41814595 Problem Essential hypertension, benign 401.1 Active 6575751 Problem Unspecified essential hypertension 401.9 Active 54528605 Problem Coronary atherosclerosis of unspecified type of vessel, tunica-biloxi or graft 414.00 Active 051842142 Problem Restless legs syndrome G25.81 Active 04577557 Problem Type 2 diabetes mellitus with diabetic neuropathy, unspecified E11.40 Active 6376635113499 Problem DM neuro manif type II E11.40 Active 925351146 Problem Fibromyalgia M79.7 Active 726430844 Problem Other and unspecified hyperlipidemia 272.4 Active 82756172 Problem Pure hyperglyceridemia 272.1 Active 425992816 Problem Depressive disorder, not elsewhere classified 311 Active 33314931 Problem Nondependent tobacco use disorder 305.1 Active 081069814 Problem Hypomagnesemia 275.2 Active 645230664 Problem Diabetic neuropathy 250.60 Active 104381059 Problem Diabetes mellitus without mention of complication, type II or unspecified type, uncontrolled 250.02 Active 123504104 Problem Restless legs syndrome [RLS] 333.94 Active 10730401 ALLERGIES No Information ENCOUNTERS Encounter Location Date Diagnosis [facility] [place] [address] [place] [address] C [id number] [place] [id number] Nov, [facility] [place] [address] [place] [address] C [id number] [place] [id number] Oct, Restless legs syndrome G25.81 [facility] [place] [address] [place] [address] C [id number] [place] [id number] Aug, Type 2 diabetes mellitus with hyperglycemia E11.65 ; Restless legs syndrome G25.81 ; Fibromyalgia M79.7 ; Essential hypertension I10 and Urinary urgency R39.15 [facility] [place] [address] [facility] [address] [id number] [place] [id number] May, [facility] [place] [address] [place] [address] C [id number] [place] [id number] May, Type 2 diabetes mellitus with hyperglycemia E11.65 [facility] [place] [address] [place] [address] C [id number] [place] [id number] May, [facility] [place] [address] [place] [address] [address] [id number] [place] [id number] Apr, Type 2 diabetes mellitus with hyperglycemia E11.65 [facility] [place] [address] [place] [address] [address] [id number] [place] [id number] Apr, [facility] [place] [address] [place] [address] C [id number] [place] [id number] 11 Apr, 2017 Hospital discharge follow-up Z09 ; Cardiac murmur, unspecified R01.1 ; Tobacco abuse Z72.0 and Chronic obstructive pulmonary disease, unspecified COPD type J44.9 [facility] [place] [address] [place] [address] [address] [id number] [place], [place] [id number] Mar, Type 2 diabetes mellitus with hyperglycemia E11.65 [facility] [place] [address] [facility] [address] [id number] [place] [id number] Feb, Type 2 diabetes mellitus with hyperglycemia E11.65 and Essential hypertension I10 [facility] [place] [address] [facility] [address] [id number] [place] [id number] Feb, Restless legs syndrome G25.81 ; Type 2 diabetes mellitus with hyperglycemia E11.65 ; Essential hypertension I10 and Right upper quadrant pain R10.11 [facility] [place] [address] [facility] [address] [id number] [place] [id number] Feb, [facility] [place] [address] [facility] [address] [id number] [place] [id number] Feb, [facility] [place] [address] [facility] [address] [id number] [place] [id number] Jan, Type 2 diabetes mellitus with hyperglycemia E11.65 and Right sided abdominal pain R10.9 [facility] [place] [address] [facility] [address] [id number] [place] [id number] Jan, [facility] [place] [address] [facility] [address] [id number] [place] [id number] Jan, Nausea R11.0 ; Essential hypertension I10 and Dizziness R42 [facility] [place] [address] [facility] [address] [id number] [place] [id number] Jan, [facility] [place] [address] [facility] [address] [id number] [place] [id number] Nov, [facility] [place] [address] [facility] [address] [id number] [place] [id number] Nov, [facility] [place] [address] [facility] [address] [id number] [place] [id number] Oct, [facility] [place] [address] [facility] [address] [id number] [place] 065844151 Oct, [facility] [place] [address] [facility] [address] [id number] [place] 628013301 Oct, [facility] [place] [address] [facility] [address] [id number] [place] [id number] Sep, [facility] [address] [facility] [id number] [place] [address] 17 Sep, 2016 Ganglion of tendon M67.40 and DM neuro manif type II E11.40 [facility] [place] [address] [facility] [address] [id number] [place] 845157453 Aug, Pure hyperglyceridemia E78.1 [facility] [place] [address] [facility] [address] [id number] [place] [id number] Aug, [facility] [place] [address] [facility] [address] [id number] [place] [id number] Aug, [facility] [place] [address] [facility] [address] [id number] [place] 225425245 Aug, [facility] [place] [address] [facility] [address] [id number] [place] 839641376 Aug, Fibromyalgia M79.7 [facility] [place] [address] [facility] [address] [id number] [place] [id number] Aug, [facility] [place] [address] [facility] [address] [id number] [place] [id number] Aug, Fibromyalgia M79.7 [facility] [place] [address] [facility] [address] [id number] [place] 882257698 Aug, Fibromyalgia M79.7 ; Mass of right foot R22.41 and Type 2 diabetes mellitus with hyperglycemia E11.65 [facility] [place] [address] [facility] [address] [id number] [place] [id number] Jun, [facility] [place] [address] [facility] [address] [id number] [place] [id number] Jun, Furuncle L02.92 and Methicillin resistant Staph aureus culture positive Z22.322 [facility] [place] [address] [facility] [address] [id number] [place] [id number] Jun, Furuncle L02.92 ; Cellulitis of other specified site L03.818 and Methicillin resistant Staph aureus culture positive Z22.322 [facility] [place] [address] [facility] [address] [id number] [place] [id number] Jun, [facility] [place] [address] [facility] [address] [id number] [place] [id number] Jun, Furuncle L02.92 and Cellulitis of other specified site L03.818 [facility] [place] [address] [facility] [address] [id number] [place] 534283396 May, Pure hyperglyceridemia E78.1 ; Abscess L02.91 ; Restless legs syndrome G25.81 and Type 2 diabetes mellitus with hyperglycemia E11.65 [facility] [place] [address] [facility] [address] [id number] [place] [id number] May, [facility] [place] [address] [facility] [address] [id number] [place] [id number] May, [facility] [place] [address] [facility] [address] [id number] [place] [id number] May, [facility] [place] [address] [facility] [address] [id number] [place] [id number] Apr, [facility] [place] [address] [place] [address] [address] [id number] [place] [id number] Mar, Well woman exam Z01.419 ; Encounter for screening mammogram for breast cancer Z12.31 and History of cervical cancer Z85.41 [facility] [place] [address] [place] [address] [address] [id number] [place] [id number] Mar, Insect bite, multiple W57.XXXA ; Type 2 diabetes mellitus with diabetic neuropathy, unspecified E11.40 ; Essential (primary) hypertension I10 ; DM neuro manif type II E11.40 and Restless legs syndrome G25.81 [facility] [place] [address] [facility] [address] [id number] [place] [id number] Feb, [facility] [place] [address] [facility] [address] [id number] [place] 859846864 Feb, [facility] [place] [address] [facility] [address] [id number] [place] 055524516 Feb, [facility] [place] [address] [facility] [address] [id number] [place] [id number] Jan, [facility] [place] [address] [facility] [address] [id number] [place] [id number] Jan, [facility] [place] [address] [facility] [address] [id number] [place] 345495591 Jan, Abscess L02.91 [facility] [place] [address] [facility] [address] [id number] [place] 623116813 December, DM neuro manif type II E11.40 ; Pure hyperglyceridemia E78.1 ; Essential (primary) hypertension I10 and Type 2 diabetes mellitus without complication E11.9 [facility] [place] [address] [facility] [address] [id number] [place] [id number] Oct, [facility] [place] [address] [facility] [address] [id number] [place] [id number] Sep, [facility] [place] [address] [facility] [address] [id number] [place] [id number] Sep, [facility] [place] [address] [facility] [address] [id number] [place] [id number] Sep, [facility] [place] [address] [facility] [address] [id number] [place] [id number] Sep, Type 2 diabetes mellitus without complication E11.9 ; Pure hyperglyceridemia E78.1 ; Cardiac murmur, unspecified R01.1 and Essential (primary) hypertension I10 [facility] [place] [address] [facility] [address] [id number] [place] 709509560 Aug, [facility] [place] [address] [facility] [address] [id number] [place] 607461091 Jul, [facility] [place] [address] [facility] [address] [id number] [place] [id number] Jul, [facility] [place] [address] [facility] [address] [id number] [place], [place] [id number] Jun, [facility] [place] [address] [facility] [address] [id number] [place], [place] 049135949 Jun, [facility] [place] [address] [facility] [address] [id number] [place] 730644212 May, [facility] [place] [address] [facility] [address] [id number] [place] [id number] May, [facility] [place] [address] [facility] [address] [id number] [place] [id number] May, [facility] [place] [address] [facility] [address] [id number] [place] [id number] May, [facility] [place] [address] [facility] [address] [id number] [place] [id number] May, [facility] [place] [address] [place] [address] [address] [id number] [place] [id number] May, [facility] [place] [address] [place] [address] [address] [id number] [place] 034601121 Apr, Onychomycosis 110.1 [facility] [place] [address] [place] [address] [address] [id number] [place], [place] [id number] Apr, [facility] [place] [address] [place] [address] [address] [id number] [place] [id number] Apr, Nail dystrophy 703.8 [facility] [place] [address] [place] [address] [address] [id number] [place], [place] [id number] 08 Apr, 2015 Ingrown nail 703.0 [facility] [place] [address] [place] [address] [address] [id number] [place], [place] [id number] Apr, Ingrown nail 703.0 [facility] [place] [address] [place] [address] [address] [id number] [place], [place] [id number] Mar, [facility] [place] [address] [place] [address] [address] [id number] [place] [id number] Mar, Diabetic neuropathy 250.60 ; Fibromyalgia 729.1 and Lumbago 724.2 [facility] [place] [address] [place] [address] [address] [id number] [place] [id number] Mar, [facility] [place] [address] [place] [address] [address] [id number] [place], [place] [id number] Jan, Diabetes mellitus without mention of complication, type II or unspecified type, uncontrolled 250.02 and Hypomagnesemia 275.2 [facility] [place] [address] [place] [address] [address] [id number] [place] [id number] Jan, [facility] [place] [address] [place] [address] [address] [id number] [place], [place] [id number] Jan, Coronary atherosclerosis of unspecified type of vessel, tunica-biloxi or graft 414.00 ; Essential hypertension, benign 401.1 ; Other and unspecified hyperlipidemia 272.4 ; Diabetes mellitus without mention of complication, type II or unspecified type, uncontrolled 250.02 ; Depressive disorder, not elsewhere classified 311 and Restless legs syndrome [RLS] 333.94 [facility] [address] [place] [address] C [id number] [place] [id number] Jan, [facility] [place] [address] [place] [address] C [id number] [place] [id number] December, Sciatica 724.3 ; Muscle spasm 728.85 ; UTI (urinary tract infection) 599.0 and Dysuria 788.1 [facility] [address] [place] [address] [address] [id number] [place] [id number] December, [facility] [address] [place] [address] C [id number] [place] 425550342 December, Scabies 133.0 and Leg pain 729.5 [facility] [address] [id number] [address] Nov, [facility] [id number] [address] Nov, [facility] [address] [place] [address] C [id number] [place] [id number] Aug, [facility] [address] [id number] [address] Aug, [facility] [place] [address] [place] [address] C [id number] [place] [id number] Jul, [facility] [address] [id number] [address] Jul, [facility] [address] [place] [address] C [id number] [place] [id number] Jul, [facility] [address] [id number] [address] Jul, [facility] [place] [address] [place] [address] [address] [id number] [place] [id number] Jul, [facility] [place] [facility] [address] [id number] [place] [address] Jul, [facility] [place] [address] [id number] [place] [id number] Jun, [facility] [place] [facility] [address] [facility] [id number] [place] [address] Jun, [facility] [place] [address] [id number] [place] 868739992 Jun, [facility] [place] [facility] [address] [id number] [place] [address] Jun, [facility] [place] [address] [id number] [place] [id number] May, [facility] [place] [facility] [address] [facility] [id number] [place] [address] May, [facility] [place] [facility] [address] [id number] [place] [address] Apr, [facility] [place] [facility] [address] [id number] [place] [address] Apr, [facility] [place] [address] [facility] [address] [id number] [place] [id number] Apr, [facility] [place] [facility] [address] [facility] [id number] [place] [address] Apr, [facility] [place] [address] [facility] [address] [id number] [place] [id number] Apr, [facility] [place] [facility] [address] [id number] [place] [address] Apr, [facility] [place] [facility] [address] [id number] [place] [address] Apr, [facility] [place] [address] [id number] [place] 799277566 Apr, [facility] [place] [facility] [address] [facility] [id number] [place] [address] Apr, [facility] [place] [address] [id number] [place] [id number] Apr, [facility] [place] [facility] [address] [id number] [place] [address] Apr, [facility] [place] [facility] [address] [facility] [id number] [place] [address] Apr, [facility] [place] [address] [id number] [place] [id number] Apr, [facility] [place] [address] [id number] [place] 148323041 Apr, [facility] [place] [facility] [address] [id number] [place] [address] Apr, [facility] [place] [facility] [address] [facility] [id number] [place] [address] Apr, [facility] [place] [address] [facility] [address] [id number] [place] 074888260 Mar, [facility] [place] [facility] [address] [id number] [place] [address] Mar, [facility] [place] [address] [id number] [place] [id number] Mar, [facility] [place] [facility] [address] [facility] [id number] [place] [address] Mar, [facility] [place] [address] [id number] [place] 627718226 Feb, [facility] [place] [facility] [address] [id number] [place] [address] Feb, [facility] [place] [address] [id number] [place] [id number] December, [facility] [place] [facility] [address] [id number] [place] [address] December, [facility] [place] [address] [facility] [address] [id number] [place] 736296144 December, [facility] [place] [facility] [address] [id number] [place] [address] December, [facility] [place] [address] [id number] [place] [id number] Nov, [facility] [address] [id number] [place] [address] Nov, [facility] [place] [address] [id number] [place] [id number] Nov, [facility] [address] [id number] [place] [address] Nov, [facility] [place] [address] [id number] [place] [id number] Nov, [facility] [address] [id number] [place] [address] Nov, [facility] [address] [id number] [place] [address] Oct, [facility] [address] [id number] [place] [address] Oct, [facility] [place] [facility] [address] [id number] [place] [address] Aug, [facility] [address] [id number] [place] [address] Aug, [facility] [place] [address] [facility] [address] [id number] [place] [id number] Aug, [facility] [place] [facility] [address] [id number] [place] [address] Aug, [facility] [place] [facility] [address] [id number] [place] [address] Aug, [facility] [place] [facility] [address] [id number] [place] [address] Aug, [facility] [place] [address] [id number] [place] [id number] Jul, [facility] [place] [facility] [address] [id number] [place] [address] 13 Jul, 2013 [facility] [address] [id number] [place] [address] Jul, [facility] [place] [facility] [address] [id number] [place] [address] Jul, [facility] [address] [id number] [place] [address] Jun, [facility] [place] [facility] [address] [id number] [place] [address] Jun, [facility] [address] [id number] [place] [address] Jun, [facility] [address] [id number] [place] [address] Jun, [facility] [place] [facility] [address] [id number] [place] [address] Jun, [facility] [address] [id number] [place] [address] 07 Jun, 2013 [facility] [place] [facility] [address] [id number] [place] [address] Jun, [facility] [address] [facility] [id number] [place] [address] 06 Jun, 2013 [facility] [place] [facility] [address] [id number] [place] [address] 06 Jun, 2013 [facility] [place] [facility] [address] [id number] [address] 18 May, 2013 [facility] [place] [facility] [address] [id number] [place] [address] 18 May, 2013 [facility] [place] [facility] [address] [id number] [place] [address] 16 May, 2013 [facility] [place] [facility] [address] [id number] [place] [address] 16 May, 2013 [facility] [place] [facility] [address] [id number] [place] [address] 14 May, 2013 [facility] [place] [facility] [address] [id number] [place] [address] 14 May, 2013 [facility] [place] [facility] [address] [id number] [place] [address] 04 May, 2013 [facility] [place] [facility] [address] [id number] [place] [address] Apr, [facility] [place] [facility] [address] [id number] [place] [address] Mar, [facility] [place] [facility] [address] [id number] [place] [address] Mar, [facility] [place] [facility] [address] [id number] [place] [address] Mar, [facility] [place] [facility] [address] [id number] [place] [address] Mar, [facility] [place] [facility] [address] [id number] [place] [address] Feb, [facility] [place] [facility] [address] [id number], [place] [address] Feb, [facility] [place] [facility] [address] [id number], [place] [address] Feb, [facility] [place] [facility] [address] [id number], [place] [address] Feb, [facility] [place] [facility] [address] [id number] [place] [address] Feb, [facility] [place] [facility] [address] [id number], [place] [address] Feb, [facility] [place] [facility] [address] [id number], [place] [address] Jan, [facility] [place] [facility] [address] [id number], [place] [address] Jan, [facility] [address] [facility] [id number] [place] [address] Jan, [facility] [address] [facility] [id number] [place] [address] Jan, IMMUNIZATIONS No Known Immunizations SOCIAL HISTORY Never Assessed REASON FOR VISIT PALS program PLAN OF CARE VITAL SIGNS MEDICATIONS Unknown Medications RESULTS No Results PROCEDURES No Known procedures INSTRUCTIONS MEDICATIONS ADMINISTERED No Known Medications MEDICAL (GENERAL) HISTORY Type Description Date Medical History Atherosclerotic heart disease of [place] coronary artery without angina pectoris Medical History [...]
--- OUTSIDE RECORDS SUMMARY | 2019-02-01 09:28 | XMS REPORT ---
Author ANGELIQUE Ritter [facility] eClinicalWorks Address Unknown Phone Unavailable Care Team Providers Care Hot Car Charger Name Role Phone ANGELIQUE PHILLIPS CP Unavailable Allergies, Adverse Reactions, Alerts Substance Reaction Event Type N.K.D.A. Info Not Available Non Drug Allergy Problems Problem Type Condition ICD-9 Code Onset Dates Condition Status Problem Shortness of breath 786.05 Active Problem Solitary pulmonary nodule 793.11 Active Problem Pure hyperglyceridemia 272.1 Active Problem Hypomagnesemia 275.2 Active Problem Depressive disorder, not elsewhere classified 311 Active Problem Undiagnosed cardiac murmurs 785.2 Active Problem Restless legs syndrome [RLS] 333.94 Active Assessment Ingrown nail 703.0 Active Problem Diabetic neuropathy 250.60 Active Problem Hidradenitis 705.83 Active Problem Other dyspnea and respiratory abnormalities 786.09 Active Problem Coronary atherosclerosis of unspecified type of vessel, [place] or graft 414.00 Active Problem Personal history [...] Instructions Start Date End Date Status Dosage Tramadol HCl [facility] [address]-37 50 MG Orally every 8 hrs Apr 02, 2015 1 tablet as needed Baclofen [facility] [address]-12 10 MG Orally Three times a day as needed muscle spasm January 11, 2015 1 tablet with food or milk Lipofen [facility] [address]-32 150 mg May 11, 2014 take 1 capsule (150 mg) by oral route once daily with food Crestor [facility] [address]-74 40 mg May 11, 2014 1 tablet by Oral route 1 time per day Toprol XL [facility] [address]-42 100 MG Orally Sep 05, 2014 take 1 tablet by Oral route 1 time per day Aspirin [facility] [address]-57 81 mg January 27, 2013 1 tablet by Oral route 1 time per day Requip [facility] [address]-15 0.5 mg Sep 05, 2014 3 tablet by Oral route 1 time per day 1-3 hours before HS metformin [facility] [address]-46 1,000 mg Aug 04, 2014 take 1 tablet by Oral route 2 times per day Cymbalta [facility] [address]-99 60 mg November 28, 2013 1 Capsule by Oral route 1 time per day Gabapentin [facility] [address]-78 600 MG Orally Three times a day January 03, 2015 1 tablet Metformin HCl [facility] 47015650977 1000MG TAKE ONE TABLET BY MOUTH TWICE DAILY Procedures Procedure Coding System Code Date Office Visit, Est Pt., Level 2 CPT-4 01590 Apr 20, 2015 Vital Signs Date/Time: Apr 20, 2015 Temperature 98.1 F Weight 172.0 lbs Height 63 in BMI 30.47 Index Blood Pressure Diastolic 80 mmHg Blood Pressure Systolic 138 mmHg Cardiac Monitoring Heart Rate 72 bpm Results No Known Results Summary Purpose eClinicalWorks Submission
--- OUTSIDE RECORDS SUMMARY | 2019-02-01 09:28 | XMS REPORT ---
Author Author JEAN-PIERRE PARRISH [facility] Address [address] [place] [address] Care Team Providers Care Choir Singer Name Role Phone JEAN-PIERRE PARRISH Unavailable PROBLEMS Type Condition ICD9-CM Code [id number] Code Onset Dates Condition Status SNOMED Code Problem Personal history of tobacco use, presenting hazards to health V15.82 Active 6370398365413 Problem Solitary pulmonary nodule 793.11 Active 124825319 Problem Other dyspnea and respiratory abnormalities 786.09 Active 341504157 Problem Chest pain, unspecified 786.50 Active 30266462 Problem Shortness of breath 786.05 Active 103810049 Problem Undiagnosed cardiac murmurs 785.2 Active 128416156 Problem Pain in soft tissues of limb 729.5 Active 30125865 Problem Unspecified myalgia and myositis 729.1 Active 141702293 Problem Pain in joint, forearm 719.43 Active 645831923 Problem Type 2 diabetes mellitus without complication E11.9 Active 58768982 Problem Hidradenitis 705.83 Active 66262859 Problem Cardiac murmur, unspecified R01.1 Active 939272630 Problem Unspecified hypertrophic and atrophic condition of skin 701.9 Active 389348106 Problem Essential (primary) hypertension I10 Active 18854019 Problem Type 2 diabetes mellitus with hyperglycemia E11.65 Active 962264179468156 Problem Pure hyperglyceridemia E78.1 Active 302076339 Problem Chronic obstructive pulmonary disease, unspecified COPD type J44.9 Active 87781474 Problem Essential hypertension I10 Active 87216773 Problem Essential hypertension, benign 401.1 Active 7492902 Problem Unspecified essential hypertension 401.9 Active 77370176 Problem Coronary atherosclerosis of unspecified type of vessel, [place] or graft 414.00 Active 706466464 Problem Restless legs syndrome G25.81 Active 37307694 Problem Type 2 diabetes mellitus with diabetic neuropathy, unspecified E11.40 Active 4243500231150 Problem DM neuro manif type II E11.40 Active 469905075 Problem Fibromyalgia M79.7 Active 701410266 Problem Other and unspecified hyperlipidemia 272.4 Active 85402261 Problem Pure hyperglyceridemia 272.1 Active 368323020 Problem Depressive disorder, not elsewhere classified 311 Active 56290960 Problem Nondependent tobacco use disorder 305.1 Active 027164631 Problem Hypomagnesemia 275.2 Active 155013821 Problem Diabetic neuropathy 250.60 Active 929215363 Problem Diabetes mellitus without mention of complication, type II or unspecified type, uncontrolled 250.02 Active 328754435 Problem Restless legs syndrome [RLS] 333.94 Active 36060675 ALLERGIES No Information SOCIAL HISTORY Never Assessed PLAN OF CARE VITAL SIGNS MEDICATIONS Medication Instructions Dosage Frequency Start Date End Date Duration Status Lyrica 150 MG TAKE ONE CAPSULE BY MOUTH TWICE DAILY 30 Active RESULTS No Results PROCEDURES No Known procedures IMMUNIZATIONS No Known Immunizations MEDICAL (GENERAL) HISTORY Type Description Date Medical History Atherosclerotic heart disease of [place] coronary artery without angina pectoris Medical History [...]
--- OUTSIDE RECORDS SUMMARY | 2019-02-01 09:28 | XMS REPORT ---
Author Author SJ ALY [facility] Address [address] [place] [address] Care Team Providers Care Key Operator Name Role Phone ALYSJ Unavailable PROBLEMS Type Condition ICD9-CM Code [id number]-[id number] Code Onset Dates Condition Status SNOMED Code Problem Solitary pulmonary nodule 793.11 Active 026938627 Problem Chest pain, unspecified 786.50 Active 15801219 Problem Personal history of tobacco use, presenting hazards to health V15.82 Active 1223095951175 Problem Other dyspnea and respiratory abnormalities 786.09 Active 854791979 Problem Shortness of breath 786.05 Active 829566260 Problem Undiagnosed cardiac murmurs 785.2 Active 896835603 Problem Pain in soft tissues of limb 729.5 Active 52838097 Problem Unspecified myalgia and myositis 729.1 Active 058294275 Problem Diabetic neuropathy 250.60 Active 447596746 Problem Pain in joint, forearm 719.43 Active 214913541 Problem Type 2 diabetes mellitus without complication E11.9 Active 59497060 Problem Hidradenitis 705.83 Active 77958275 Problem Cardiac murmur, unspecified R01.1 Active 891871983 Problem Pure hyperglyceridemia E78.1 Active 853882368 Problem Essential (primary) hypertension I10 Active 07551218 Problem Essential hypertension I10 Active 93750485 Problem DM neuro manif type II E11.40 Active 935268300 Problem Unspecified essential hypertension 401.9 Active 31439849 Problem Coronary atherosclerosis of unspecified type of vessel, [place] or graft 414.00 Active 090933367 Problem Unspecified hypertrophic and atrophic condition of skin 701.9 Active 081704222 Problem Type 2 diabetes mellitus with diabetic neuropathy, unspecified E11.40 Active 6441684421788 Problem Type 2 diabetes mellitus with hyperglycemia E11.65 Active 878656319238637 Problem Fibromyalgia M79.7 Active 798721174 Problem Restless legs syndrome G25.81 Active 47472108 Problem Nondependent tobacco use disorder 305.1 Active 784253914 Problem Other and unspecified hyperlipidemia 272.4 Active 51293005 Problem Essential hypertension, benign 401.1 Active 5504692 Problem Depressive disorder, not elsewhere classified 311 Active 74868510 Problem Restless legs syndrome [RLS] 333.94 Active 22475558 Problem Hypomagnesemia 275.2 Active 156268973 Problem Pure hyperglyceridemia 272.1 Active 450445368 Problem Diabetes mellitus without mention of complication, type II or unspecified type, uncontrolled 250.02 Active 753595576 ALLERGIES Unknown Allergies SOCIAL HISTORY No smoking Hx information available PLAN OF CARE VITAL SIGNS MEDICATIONS Medication Instructions Dosage Frequency Start Date End Date Duration Status Atorvastatin Calcium 40 mg Orally Once a day 1 tablet 24h May, Active Ropinirole HCl 0.5 MG Orally HS 3 tablets Jun, Active RESULTS No Results PROCEDURES No Known procedures IMMUNIZATIONS No Known Immunizations
--- OUTSIDE RECORDS SUMMARY | 2019-02-01 09:28 | XMS REPORT ---
Author EDUARDO Myers eClinicalWorks Address Unknown Phone Unavailable Care Team Providers Care Master Cosmetologist Name Role Phone EDUARDO WEBB CP Unavailable Allergies, Adverse Reactions, Alerts Substance Reaction Event Type Hydrocodone-Acetaminophen itching Drug Allergy Acetaminophen-Codeine #3 itching Drug Allergy Problems Problem Type Condition Code Onset Dates Condition Status Assessment Cellulitis of other specified site L03.818 Active Assessment Furuncle L02.92 Active Problem Restless [...] Coronary atherosclerosis of unspecified type of vessel, [place] or graft 414.00 Active Problem Chest pain, [...] Date End Date Status Dosage Advair Diskus [facility] [address]-59 250-50 MCG/DOSE by inhalation route Twice a day 1 puff metformin [facility] [address]-58 1,000 mg Aug 04, 2014 take 1 tablet by Oral route 2 times per day Aspirin [facility] [address]-71 81 mg January 27, 2013 1 tablet by Oral route 1 time per day Requip [facility] [address]-34 0.5 MG Sep 05, 2014 3 tablet by Oral route 1 time per day 1-3 hours before HS Gabapentin [facility] [address]-59 600 MG Orally Three times a day January 03, 2015 1 tablet Cymbalta [facility] [address]-71 60 mg November 28, 2013 1 Capsule by Oral route 1 time per day BusPIRone HCl [facility] [address]-63 10 mg Orally Twice a day March 11, 2016 Take 1 tablet Toprol XL [facility] [address]-94 100 MG Orally Sep 05, 2014 take 1 tablet by Oral route 1 time per day Bactrim DS [facility] [address]-49 800-160 MG Orally Twice a day Jun 16, 2016 Jun 26, 2016 1 tablet Metoprolol Tartrate [facility] [address]-46 50 mg November 28, 2013 take 1 tablet by Oral route 2 times per day Ventolin HFA [facility] [address]-24 90 MCG/ACT Inhalation every 4 hrs 2 puffs as needed PredniSONE [facility] [address]-92 20 mg Orally Once a day Mar 17, 2016 2 tabs daily x 4 days then 1 tab daily x 4 days Lisinopril [facility] [address]-35 2.5 MG Orally Once a day 1 tablet Atorvastatin Calcium [facility] [address]-67 40 mg Orally Once a day Jun 16, 2016 1 tablet Procedures Procedure Coding System Code Date DRAINAGE OF SKIN ABSCESS CPT-4 48018 Jun 18, 2016 Office Visit, Est Pt., Level 3 CPT-4 17606 Jun 18, 2016 Vital Signs Date/Time: Jun 18, 2016 Cardiac Monitoring Heart Rate 64 bpm Weight 160.4 lbs Height 63 in BMI 28.41 Index Blood Pressure Diastolic 74 mmHg Blood Pressure Systolic 138 mmHg Results Name Result Date Reference Range Unit Abnormality Flag I/D SIMPLE ABSCESS Summary Purpose eClinicalWorks Submission
--- OUTSIDE RECORDS SUMMARY | 2019-02-01 09:28 | XMS REPORT ---
Author JEAN-PIERRE Smith Organization [employer] Address Unknown Phone Unavailable Care Team Providers Care [employer] Law Clerk Name Role Phone JEAN-PIERRE PARRISH CP Unavailable [...] of unspecified type of vessel, [place] or graft 414.00 Active Problem Chest pain, [...] Start Date End Date Status Dosage Gabapentin [facility] [address]-34 600 MG Orally Three times a day January 03, 2015 1 tablet Results No Known Results Summary Purpose eClinicalWorks Submission
--- OUTSIDE RECORDS SUMMARY | 2019-02-01 09:29 | XMS REPORT ---
Author Author SJ ALY [facility] [place] Address [address] [place] [address] Care Team Providers Care Charter Pilot Name Role Phone ALYSJ Unavailable PROBLEMS Type Condition ICD9-CM Code TTY38-WL Code Onset Dates Condition Status SNOMED Code Problem Personal history of tobacco use, presenting hazards to health V15.82 Active 7777700010701 Problem Solitary pulmonary nodule 793.11 Active 838044262 Problem Other dyspnea and respiratory abnormalities 786.09 Active 264529227 Problem Chest pain, unspecified 786.50 Active 74802191 Problem Shortness of breath 786.05 Active 408616718 Problem Undiagnosed cardiac murmurs 785.2 Active 826284728 Problem Pain in soft tissues of limb 729.5 Active 40809300 Problem Unspecified myalgia and myositis 729.1 Active 247390251 Problem Pain in joint, forearm 719.43 Active 450960316 Problem Type 2 diabetes mellitus without complication E11.9 Active 96933100 Problem Hidradenitis 705.83 Active 38205265 Problem Cardiac murmur, unspecified R01.1 Active 703799887 Problem Unspecified hypertrophic and atrophic condition of skin 701.9 Active 496029098 Problem Essential (primary) hypertension I10 Active 37607189 Problem Type 2 diabetes mellitus with hyperglycemia E11.65 Active 195571094773691 Problem Pure hyperglyceridemia E78.1 Active 272253907 Problem Chronic obstructive pulmonary disease, unspecified COPD type J44.9 Active 68160071 Problem Essential hypertension I10 Active 21479545 Problem Essential hypertension, benign 401.1 Active 8303231 Problem Unspecified essential hypertension 401.9 Active 04724426 Problem Coronary atherosclerosis of unspecified type of vessel, [place] or graft 414.00 Active 411566401 Problem Restless legs syndrome G25.81 Active 08995146 Problem Type 2 diabetes mellitus with diabetic neuropathy, unspecified E11.40 Active 6432895377757 Problem DM neuro manif type II E11.40 Active 656391864 Problem Fibromyalgia M79.7 Active 778747550 Problem Other and unspecified hyperlipidemia 272.4 Active 37435088 Problem Pure hyperglyceridemia 272.1 Active 057516946 Problem Depressive disorder, not elsewhere classified 311 Active 62734866 Problem Nondependent tobacco use disorder 305.1 Active 088371742 Problem Hypomagnesemia 275.2 Active 678659644 Problem Diabetic neuropathy 250.60 Active 003520129 Problem Diabetes mellitus without mention of complication, type II or unspecified type, uncontrolled 250.02 Active 690506061 Problem Restless legs syndrome [RLS] 333.94 Active 94730615 ALLERGIES Substance Reaction Event Type Date Status Hydrocodone-Acetaminophen itching Drug Allergy Jan, Active Acetaminophen-Codeine #3 itching Drug Allergy Jan, Active ENCOUNTERS Encounter Location Date Diagnosis [facility] [address] [place] [address] C [id number] [place] [id number] Nov, [facility] [address] [place] [address] C [id number] [place] 876184415 Oct, Restless legs syndrome G25.81 [facility] [place] [address] [place] [address] [id number] [place] [id number] Aug, Type 2 diabetes mellitus with hyperglycemia E11.65 ; Restless legs syndrome G25.81 ; Fibromyalgia M79.7 ; Essential hypertension I10 and Urinary urgency R39.15 [facility] [place] [address] [place] [address] C [id number] [place] [id number] May, [facility] [place] [address] [place] [address] C [id number] [place] 952254211 May, Type 2 diabetes mellitus with hyperglycemia E11.65 [facility] [place] [address] [place] [address] C [id number] [place] [id number] May, [facility] [place] [address] [place] [address] C [id number] [place] 176971989 Apr, Type 2 diabetes mellitus with hyperglycemia E11.65 [facility] [place] [address] [place] [address] C [id number] [place] 124438224 Apr, [facility] [place] [address] [place] [address] C [id number] [place] [id number] 11 Apr, 2017 Hospital discharge follow-up Z09 ; Cardiac murmur, unspecified R01.1 ; Tobacco abuse Z72.0 and Chronic obstructive pulmonary disease, unspecified COPD type J44.9 [facility] [place] [address] [facility] [address] [id number] [place] 729562133 Mar, Type 2 diabetes mellitus with hyperglycemia E11.65 [facility] [place] [address] [facility] [address] [id number] [place] 28[address]257[address] Feb, Type 2 diabetes mellitus with hyperglycemia E11.65 and Essential hypertension I10 [facility] [place] [address] [facility] [address] [id number] [place] 644592266 Feb, Restless legs syndrome G25.81 ; Type 2 diabetes mellitus with hyperglycemia E11.65 ; Essential hypertension I10 and Right upper quadrant pain R10.11 [facility] [place] [address] [facility] [address] [id number] [place] 579178474 Feb, [facility] [place] [address] [facility] [address] [id number] [place] 326872200 Feb, [facility] [place] [address] [facility] [address] [id number] [place] 024183228 Jan, Type 2 diabetes mellitus with hyperglycemia E11.65 and Right sided abdominal pain R10.9 [facility] [place] [address] [facility] [address] [id number] [place] 862912405 Jan, [facility] [place] [address] [facility] [address] [id number] [place] 316985376 Jan, Nausea R11.0 ; Essential hypertension I10 and Dizziness R42 [facility] [place] [address] [facility] [address] [id number] [place] 423615799 Jan, [facility] [place] [address] [facility] [address] [id number] [place] 534857291 Nov, [facility] [place] [address] [facility] [address] [id number] [place] [id number] Nov, [facility] [place] [address] [facility] [address] [id number] [place] 136000507 Oct, [facility] [place] [address] [facility] [address] [id number] [place] 344095587 Oct, [facility] [place] [address] [id number] [place] 685219318 Oct, [facility] [place] [address] [facility] [address] [id number] [place] 567415737 Sep, [facility] [address] [facility] [id number] [place] [address] 17 Sep, 2016 Ganglion of tendon M67.40 and DM neuro manif type II E11.40 [facility] [place] [address] [facility] [address] [id number] [place] 610246188 Aug, Pure hyperglyceridemia E78.1 [facility] [place] [address] [facility] [address] [id number] [place] 987890682 Aug, [facility] [place] [address] [facility] [address] [id number] [place] 801896314 Aug, [facility] [place] [address] [facility] [address] [id number] [place] 935392947 Aug, [facility] [place] [address] [facility] [address] [id number] [place] 000018606 Aug, Fibromyalgia M79.7 [facility] [place] [address] [facility] [address] [id number] [place] [id number] Aug, [facility] [place] [address] [facility] [address] [id number] [place] 341531723 Aug, Fibromyalgia M79.7 [facility] [place] [address] [facility] [address] [id number] [place] 367625461 Aug, Fibromyalgia M79.7 ; Mass of right foot R22.41 and Type 2 diabetes mellitus with hyperglycemia E11.65 [facility] [place] [address] [id number] [place] 392213476 Jun, [facility] [place] [address] [id number] [place] 068358039 Jun, Furuncle L02.92 and Methicillin resistant Staph aureus culture positive Z22.322 [facility] [place] [address] [id number] [place] 195873346 Jun, Furuncle L02.92 ; Cellulitis of other specified site L03.818 and Methicillin resistant Staph aureus culture positive Z22.322 [facility] [place] [address] [facility] [address] [id number] [place] 164771401 Jun, [facility] [place] [address] [facility] [address] [id number] [place] 220524489 Jun, Furuncle L02.92 and Cellulitis of other specified site L03.818 [facility] [place] [address] [facility] [address] [id number] [place] 197879239 May, Pure hyperglyceridemia E78.1 ; Abscess L02.91 ; Restless legs syndrome G25.81 and Type 2 diabetes mellitus with hyperglycemia E11.65 [facility] [place] [address] [facility] [address] [id number] [place] 005957731 May, [facility] [place] [address] [facility] [address] [id number] [place] 596174667 May, [facility] [place] [address] [facility] [address] [id number] [place] 319750117 May, [facility] [place] [address] [facility] [address] [id number] [place] 581730823 Apr, [facility] [place] [address] [facility] [address] [id number] [place] 790283454 Mar, Well woman exam Z01.419 ; Encounter for screening mammogram for breast cancer Z12.31 and History of cervical cancer Z85.41 [facility] [place] [address] [facility] [address] [id number] [place] 455781932 Mar, Insect bite, multiple W57.XXXA ; Type 2 diabetes mellitus with diabetic neuropathy, unspecified E11.40 ; Essential (primary) hypertension I10 ; DM neuro manif type II E11.40 and Restless legs syndrome G25.81 [facility] [place] [address] [facility] [address] [id number] [place] [id number] Feb, [facility] [place] [address] [facility] [address] [id number] [place] 598639678 Feb, [facility] [place] [address] [facility] [address] [id number] [place] 213666474 Feb, [facility] [place] [address] [facility] [address] [id number] [place] 350204147 Jan, [facility] [place] [address] [facility] [address] [id number] [place] 486521759 Jan, [facility] [place] [address] [facility] [address] [id number] [place] 209462577 Jan, Abscess L02.91 [facility] [place] [address] [facility] [address] [id number] [place] 001596654 December, DM neuro manif type II E11.40 ; Pure hyperglyceridemia E78.1 ; Essential (primary) hypertension I10 and Type 2 diabetes mellitus without complication E11.9 [facility] [place] [address] [facility] [address] [id number] [place] [id number] Oct, [facility] [place] [address] [facility] [address] [id number] [place] 138566339 Sep, [facility] [place] [address] [facility] [address] [id number] [place] 323040500 Sep, [facility] [place] [address] [facility] [address] [id number] [place] 857151541 Sep, [facility] [place] [address] [facility] [address] [id number] [place] 929353905 Sep, Type 2 diabetes mellitus without complication E11.9 ; Pure hyperglyceridemia E78.1 ; Cardiac murmur, unspecified R01.1 and Essential (primary) hypertension I10 [facility] [place] [address] [facility] [address] [id number] [place] 689809156 Aug, [facility] [place] [address] [facility] [address] [id number] [place] 199992893 Jul, [facility] [place] [address] [facility] [address] [id number] [place] [id number] Jul, [facility] [place] [address] [facility] [address] [id number] [place] 185033543 Jun, [facility] [place] [address] [facility] [address] [id number] [place] 413988726 Jun, [facility] [place] [address] [facility] [address] [id number] [place] 734825026 May, [facility] [place] [address] [facility] [address] [id number] [place] 475284501 May, [facility] [place] [address] [facility] [address] [id number] [place] [id number] May, [facility] [place] [address] [facility] [address] [id number] [place] 937874956 May, [facility] [place] [address] [place] [address] [address] [id number] [place] 996377705 May, [facility] [place] [address] [place] [address] [address] [id number] [place] 067620758 May, [facility] [place] [address] [place] [address] [address] [id number] [place] 027270202 Apr, Onychomycosis 110.1 [facility] [place] [address] [place] [address] [address] [id number] [place] [id number] 15 Apr, 2015 [facility] [place] [address] [place] [address] [address] [id number] [place] [id number] 14 Apr, 2015 Nail dystrophy 703.8 [facility] [place] [address] [place] [address] [address] [id number] [place] [id number] 08 Apr, 2015 Ingrown nail 703.0 [facility] [place] [address] [place] [address] [address] [id number] [place] [id number] 04 Apr, 2015 Ingrown nail 703.0 [facility] [place] [address] [place] [address] [address] [id number] [place] [id number] Mar, [facility] [place] [address] [place] [address] [address] [id number] [place] 320741096 Mar, Diabetic neuropathy 250.60 ; Fibromyalgia 729.1 and Lumbago 724.2 [facility] [place] [address] [place] [address] [address] [id number] [place] 147490871 Mar, [facility] [place] [address] [place] [address] [address] [id number] [place] [id number] Jan, Diabetes mellitus without mention of complication, type II or unspecified type, uncontrolled 250.02 and Hypomagnesemia 275.2 [facility] [place] [address] [place] [address] [address] [id number] [place] [id number] Jan, [facility] [place] [address] [facility] [address] [id number] [place] [id number] Jan, Coronary atherosclerosis of unspecified type of vessel, [place] or graft 414.00 ; Essential hypertension, benign 401.1 ; Other and unspecified hyperlipidemia 272.4 ; Diabetes mellitus without mention of complication, type II or unspecified type, uncontrolled 250.02 ; Depressive disorder, not elsewhere classified 311 and Restless legs syndrome [RLS] 333.94 [facility] [place] [address] [place] [address] C [id number] [place] 440836314 Jan, [facility] [place] [address] [place] [address] C [id number] [place] 451847580 December, Sciatica 724.3 ; Muscle spasm 728.85 ; UTI (urinary tract infection) 599.0 and Dysuria 788.1 [facility] [place] [address] [place] [address] [id number] [place] [id number] December, [facility] [place] [address] [place] [address] C [id number] [place] 884472505 December, Scabies 133.0 and Leg pain 729.5 [facility] [address], [place] [address] Nov, [facility] [address], [place] [address] Nov, [facility] [address] [place] [address] [id number] [place] 324429938 Aug, [facility] [address], [place] [address] Aug, [facility] [address] [place] [address] [id number] [place] 036585137 Jul, [facility] [address], [place] [address] Jul, [facility] [address] [place] [address] [id number] [place] [id number] Jul, [facility] [address] [place] [id number] [place] [address] Jul, [facility] [place] [address] [facility] [address] [id number] [place] 442140964 Jul, [facility] [address] [facility] [id number] [place] [address] Jul, [facility] [place] [address] [facility] [address] [id number] [place] 635552194 Jun, [facility] [address] [facility] [id number] [place] [address] Jun, [facility] [place] [address] [facility] [address] [id number] [place] 036424349 Jun, [facility] [address] [facility] [id number] [place] [address] Jun, [facility] [place] [address] [facility] [address] [id number] [place] 317187985 May, [facility] [address] [facility] [id number] [address] May, [facility] [place] [facility] [address] [facility] [id number], [place] [address] Apr, [facility] [address] [facility] [id number], [place] [address] Apr, [facility] [place] [address] [facility] [address] [id number] [place] 013263712 Apr, [facility] [place] [facility] [address] [facility] [id number], [place] [address] Apr, [facility] [place] [address] [facility] [address] [id number] [place] 387686203 Apr, [facility] [place] [facility] [address] [facility] [id number] [place] [address] Apr, [facility] [place] [facility] [address] [facility] [id number] [place] [address] Apr, [facility] [place] [address] [facility] [address] [id number] [place] 812598494 Apr, [facility] [place] [facility] [address] [id number] [place] [address] Apr, [facility] [place] [address] [facility] [address] [id number] [place] [id number] Apr, [facility] [place] [facility] [address] [id number] [place] [address] Apr, [facility] [place] [facility] [address] [id number] [place] [address] Apr, [facility] [place] [address] [id number] [place] 010424261 Apr, [facility] [place] [address] [id number] [place] 652306301 Apr, [facility] [place] [facility] [address] [facility] [id number] [place] [address] Apr, [facility] [place] [facility] [address] [id number] [place] [address] Apr, [facility] [place] [address] [facility] [address] [id number] [place] 438195245 Mar, [facility] [place] [facility] [address] [id number] [place] [address] Mar, [facility] [place] [address] [facility] [address] [id number] [place] 259180460 Mar, [facility] [place] [facility] [address] [id number] [place] [address] Mar, [facility] [place] [address] [id number] [place] 546569407 Feb, [facility] [place] [facility] [address] [id number] [place] [address] Feb, [facility] [place] [address] [facility] [address] [id number] [place] [id number] December, [facility] [place] [facility] [address] [facility] [id number] [place] [address] December, [facility] [place] [address] [id number] [place] [id number] December, [facility] [place] [facility] [address] [id number] [place] [address] December, [facility] [place] [address] [id number] [place] 199612305 Nov, [facility] [address] [id number] [place] [address] Nov, [facility] [place] [address] [id number] [place] 513111290 Nov, [facility] [address] [id number] [place] [address] Nov, [facility] [place] [address] [facility] [address] [id number] [place] 561336239 Nov, [facility] [address] [id number] [place] [address] Nov, [facility] [place] [facility] [address] [id number] [place] [address] Oct, [facility] [place] [facility] [address] [id number] [place] [address] Oct, [facility] [place] [facility] [address] [facility] [id number] [place] [address] Aug, [facility] [place] [facility] [address] [id number] [place] [address] Aug, [facility] [place] [address] [facility] [address] [id number] [place] [id number] Aug, [facility] [place] [facility] [address] [id number] [place] [address] Aug, [facility] [place] [facility] [address] [id number] [place] [address] Aug, [facility] [place] [facility] [address] [id number] [place] [address] Aug, [facility] [place] [address] [id number] [place] [id number] 13 Jul, 2013 [facility] [address] [id number] [place] [address] Jul, [facility] [place] [facility] [address] [id number] [place] [address] Jul, [facility] [address] [id number] [place] [address] Jul, [facility] [place] [facility] [address] [id number] [place] [address] Jun, [facility] [address] [id number] [place] [address] Jun, [facility] [place] [facility] [address] [id number] [place] [address] Jun, [facility] [place] [facility] [address] [id number] [place] [address] Jun, [facility] [address] [id number] [place] [address] 08 Jun, 2013 [facility] [place] [facility] [address] [id number] [place] [address] Jun, [facility] [address] [id number] [place] [address] 07 Jun, 2013 [facility] [place] [facility] [address] [id number] [place] [address] Jun, [facility] [place] [facility] [address] [id number][place] [address] 06 Jun, 2013 [facility] [place] [facility] [address] [id number] [place] [address] 18 May, 2013 [facility] [place] [facility] [address] [id number] [place] [address] 18 May, 2013 [facility] [place] [facility] [address] [id number], [place] [address] 16 May, 2013 [facility] [place] [facility] [address] [id number] [place] [address] 16 May, 2013 [facility] [place] [facility] [address] [id number] [place] [address] May, [facility] [place] [facility] [address] [id number] [place] [address] 14 May, 2013 [facility] [place] [facility] [address] [id number] [place] [address] May, [facility] [place] [facility] [address] [id number] [place] [address] Apr, [facility] [place] [facility] [address] [id number] [place] [address] Mar, [facility] [place] [facility] [address] [id number] [place] [address] Mar, [facility] [place] [facility] [address] [id number] [place] [address] Mar, [facility] [place] [facility] [address] [id number] [place] [address] Mar, [facility] [place] [facility] [address] [id number], [place] [address] Feb, [facility] [place] [facility] [address] [id number], [place] [address] Feb, [facility] [place] [facility] [address] [id number], [place] [address] Feb, [facility] [place] [facility] [address] [id number] [place] [address] Feb, [facility] [place] [facility] [address] [id number], [place] [address] Feb, [facility] [place] [facility] [address] [id number], [place] [address] Feb, [facility] [place] [facility] [address] [id number], [place] [address] Jan, [facility] [address] [facility] [id number] [place] [address] Jan, [facility] [address] [facility] [id number], [place] [address] Jan, [facility] [address] [facility] [id number] [place] [address] Jan, IMMUNIZATIONS No Known Immunizations SOCIAL HISTORY Never Assessed REASON FOR VISIT Blood Pressure - [facility] PLAN OF CARE Activity Details Follow Up prn Reason: VITAL SIGNS Height 63 in 2017-02-02 Weight 173.2 lbs 2017-02-02 Temperature 98.1 degrees Fahrenheit 2017-02-02 Heart Rate 70 bpm 2017-02-02 Respiratory Rate 18 2017-02-02 BMI 30.68 kg/m2 2017-02-02 Blood pressure systolic 174 mmHg 2017-02-02 Blood pressure diastolic 120 mmHg 2017-02-02 MEDICATIONS Medication Instructions Dosage Frequency Start Date [...] route 1 time per day Nov, Active Lyrica 150 MG TAKE ONE CAPSULE BY MOUTH TWICE DAILY 30 Active BusPIRone HCl 10 mg Orally Twice a day Take 1 tablet 12h Feb, Active Atorvastatin Calcium 40 mg Orally Once a day 1 tablet 24h May, Active Ropinirole HCl 0.5 MG Orally HS 3 tablets Jun, Active RESULTS No Results PROCEDURES Procedure Date Ordered Result Body Site EKG, TRACING (IN-HOUSE) 2017-02-02 N/A ELECTROCARDIOGRAM, TRACING February 02, 2017 INSTRUCTIONS MEDICATIONS ADMINISTERED No Known Medications MEDICAL (GENERAL) HISTORY Type Description Date Medical History Atherosclerotic heart disease of [place] coronary artery without angina pectoris Medical History [...]
--- OUTSIDE RECORDS SUMMARY | 2019-02-01 09:29 | XMS REPORT ---
Author JEAN-PIERRE Smith Organization [employer] Address Unknown Phone Unavailable Care Team Providers Care Medical Pathology Teacher Name Role Phone JEAN-PIERRE PARRISH CP Unavailable [...] Start Date End Date Status Dosage Fenofibrate [facility] [address]-92 150 MG May 25, 2015 1 capsule by mouth once daily with food Results No Known Results Summary Purpose [employer] Submission
--- OUTSIDE RECORDS SUMMARY | 2019-02-01 09:29 | XMS REPORT ---
Author JEAN-PIERRE Smith Organization [employer] Address Unknown Phone Unavailable Care Team Providers Care Textile Pin Worker Name Role Phone JEAN-PIERRE PARRISH CP [...] Coronary atherosclerosis of unspecified type of vessel, [place] or graft 414.00 Active Problem Chest pain, [...]
--- OUTSIDE RECORDS SUMMARY | 2019-02-01 09:30 | XMS REPORT ---
Author EMORY Nunez Organization [employer] Address Unknown Phone Unavailable Care Team Providers Care Mold Stamper And Repairer Name Role Phone EMORY NEGRETE CP Unavailable [...] Coronary atherosclerosis of unspecified type of vessel, [place] or graft 414.00 Active Problem Chest pain, [...] Instructions Start Date End Date Status Dosage Cyclobenzaprine HCl [facility] [address]-10 5 MG Orally Three times a day, PRN Apr 02, 2015 1 tablet Results No Known Results Summary Purpose [employer] Submission
--- OUTSIDE RECORDS SUMMARY | 2019-02-01 09:30 | XMS REPORT ---
Author Author [facility] [place] Address [address] [place] [address] Care Team Providers Care Advice Nurse Name Role Phone ALYSJ Unavailable PROBLEMS Type Condition ICD9-CM Code [id number] Code Onset Dates Condition Status SNOMED Code Problem Personal history of tobacco use, presenting hazards to health V15.82 Active 7023399015668 Problem Solitary pulmonary nodule 793.11 Active 567304744 Problem Other dyspnea and respiratory abnormalities 786.09 Active 624841523 Problem Chest pain, unspecified 786.50 Active 98582098 Problem Shortness of breath 786.05 Active 566738119 Problem Undiagnosed cardiac murmurs 785.2 Active 451984791 Problem Pain in soft tissues of limb 729.5 Active 37262586 Problem Unspecified myalgia and myositis 729.1 Active 074446692 Problem Pain in joint, forearm 719.43 Active 033004355 Problem Type 2 diabetes mellitus without complication E11.9 Active 69485368 Problem Hidradenitis 705.83 Active 78351058 Problem Cardiac murmur, unspecified R01.1 Active 271571206 Problem Unspecified hypertrophic and atrophic condition of skin 701.9 Active 303945604 Problem Essential (primary) hypertension I10 Active 99625229 Problem Type 2 diabetes mellitus with hyperglycemia E11.65 Active 432418104148720 Problem Pure hyperglyceridemia E78.1 Active 220640941 Problem Chronic obstructive pulmonary disease, unspecified COPD type J44.9 Active 23473081 Problem Essential hypertension I10 Active 69206239 Problem Essential hypertension, benign 401.1 Active 0331819 Problem Unspecified essential hypertension 401.9 Active 22274701 Problem Coronary atherosclerosis of unspecified type of vessel, round valley or graft 414.00 Active 814916745 Problem Restless legs syndrome G25.81 Active 20648565 Problem Type 2 diabetes mellitus with diabetic neuropathy, unspecified E11.40 Active 5000155478418 Problem DM neuro manif type II E11.40 Active 046869767 Problem Fibromyalgia M79.7 Active 510778506 Problem Other and unspecified hyperlipidemia 272.4 Active 77848542 Problem Pure hyperglyceridemia 272.1 Active 048987214 Problem Depressive disorder, not elsewhere classified 311 Active 74516197 Problem Nondependent tobacco use disorder 305.1 Active 291728352 Problem Hypomagnesemia 275.2 Active 505104325 Problem Diabetic neuropathy 250.60 Active 588614316 Problem Diabetes mellitus without mention of complication, type II or unspecified type, uncontrolled 250.02 Active 816629309 Problem Restless legs syndrome [RLS] 333.94 Active 53154985 ALLERGIES No Information ENCOUNTERS Encounter Location Date Diagnosis [facility] [place] [address] [place] [address] C [id number] [place] [id number] Nov, [facility] [place] [address] [place] [address] C [id number] [place] [id number] Oct, Restless legs syndrome G25.81 [facility] [place] [address] [place] [address] C [id number] [place] [id number] Aug, Type 2 diabetes mellitus with hyperglycemia E11.65 ; Restless legs syndrome G25.81 ; Fibromyalgia M79.7 ; Essential hypertension I10 and Urinary urgency R39.15 [facility] [place] [address] [facility] [address] [id number] [place] [id number] May, [facility] [place] [address] [place] [address] C [id number] [place] [id number] May, Type 2 diabetes mellitus with hyperglycemia E11.65 [facility] [place] [address] [place] [address] C [id number] [place], [place] [id number] May, [facility] [place] [address] [place] [address] [address] [id number] [place] [id number] Apr, Type 2 diabetes mellitus with hyperglycemia E11.65 [facility] [place] [address] [place] [address] [address] [id number] [place] [id number] Apr, [facility] [place] [address] [place] [address] C [id number] [place] [id number] 11 Apr, 2017 Hospital discharge follow-up Z09 ; Cardiac murmur, unspecified R01.1 ; Tobacco abuse Z72.0 and Chronic obstructive pulmonary disease, unspecified COPD type J44.9 [facility] [place] [address] [place] [address] [address] [id number] [place] [id number] Mar, Type 2 diabetes mellitus with hyperglycemia E11.65 [facility] [place] [address] [facility] [address] [id number] [place] 505271825 Feb, Type 2 diabetes mellitus with hyperglycemia E11.65 and Essential hypertension I10 [facility] [place] [address] [facility] [address] [id number] [place] 915446046 Feb, Restless legs syndrome G25.81 ; Type 2 diabetes mellitus with hyperglycemia E11.65 ; Essential hypertension I10 and Right upper quadrant pain R10.11 [facility] [place] [address] [facility] [address] [id number] [place] [id number] Feb, [facility] [place] [address] [facility] [address] [id number] [place] [id number] Feb, [facility] [place] [address] [facility] [address] [id number] [place] [id number] Jan, Type 2 diabetes mellitus with hyperglycemia E11.65 and Right sided abdominal pain R10.9 [facility] [place] [address] [facility] [address] [id number] [place] [id number] Jan, [facility] [place] [address] [facility] [address] [id number] [place] 833605271 Jan, Nausea R11.0 ; Essential hypertension I10 and Dizziness R42 [facility] [place] [address] [facility] [address] [id number] [place] 523472599 Jan, [facility] [place] [address] [facility] [address] [id number] [place] [id number] Nov, [facility] [place] [address] [facility] [address] [id number] [place] 528277771 Nov, [facility] [place] [address] [facility] [address] [id number] [place] [id number] Oct, [facility] [place] [address] [facility] [address] [id number] [place] 023741841 Oct, [facility] [place] [address] [facility] [address] [id number] [place] [id number] Oct, [facility] [place] [address] [facility] [address] [id number] [place] [id number] Sep, [facility] [address] [facility] [id number] [place] [address] 17 Sep, 2016 Ganglion of tendon M67.40 and DM neuro manif type II E11.40 [facility] [place] [address] [facility] [address] [id number] [place] 034841829 Aug, Pure hyperglyceridemia E78.1 [facility] [place] [address] [facility] [[email or web address] [address] [id number] [place] 260055047 Aug, [facility] [place] [address] [facility] [address] [id number] [place] [id number] Aug, [facility] [place] [address] [facility] [address] [id number] [place] 718121577 Aug, [facility] [place] [address] [facility] [address] [id number] [place] 753217438 Aug, Fibromyalgia M79.7 [facility] [place] [address] [facility] [address] [id number] [place] [id number] Aug, [facility] [place] [address] [facility] [address] [id number] [place] 458663959 Aug, Fibromyalgia M79.7 [facility] [place] [address] [facility] [address] [id number] [place] 334566046 Aug, Fibromyalgia M79.7 ; Mass of right foot R22.41 and Type 2 diabetes mellitus with hyperglycemia E11.65 [facility] [place] [address] [facility] [address] [id number] [place] 180915788 Jun, [facility] [place] [address] [facility] [address] [id number] [place] 587335508 Jun, Furuncle L02.92 and Methicillin resistant Staph aureus culture positive Z22.322 [facility] [place] [address] [facility] [[email or web address] ST [address] [id number] [place] 758349776 Jun, Furuncle L02.92 ; Cellulitis of other specified site L03.818 and Methicillin resistant Staph aureus culture positive Z22.322 [facility] [place] [address] [facility] [address] [id number] [place] 974179204 Jun, [facility] [place] [address] [facility] [address] [id number] [place] 276732400 Jun, Furuncle L02.92 and Cellulitis of other specified site L03.818 [facility] [place] [address] [facility] [address] [id number] [place] 015631208 May, Pure hyperglyceridemia E78.1 ; Abscess L02.91 ; Restless legs syndrome G25.81 and Type 2 diabetes mellitus with hyperglycemia E11.65 [facility] [place] [address] [facility] [address] [id number] [place] 801219686 May, [facility] [place] [address] [facility] [address] [id number] [place] 634008752 May, [facility] [place] [address] [facility] [address] [id number] [place] 219975355 May, [facility] [place] [address] [facility] [address] [id number] [place] 334778837 Apr, [facility] [place] [address] [place] [address] [address] [id number] [place] [id number] Mar, Well woman exam Z01.419 ; Encounter for screening mammogram for breast cancer Z12.31 and History of cervical cancer Z85.41 [facility] [place] [address] [place] [address] [address] [id number] [place] 115335124 Mar, Insect bite, multiple W57.XXXA ; Type 2 diabetes mellitus with diabetic neuropathy, unspecified E11.40 ; Essential (primary) hypertension I10 ; DM neuro manif type II E11.40 and Restless legs syndrome G25.81 [facility] [place] [address] [facility] [address] [id number] [place] [id number] Feb, [facility] [place] [address] [facility] [address] [id number] [place] [id number] Feb, [facility] [place] [address] [facility] [address] [id number] [place] 719988396 Feb, [facility] [place] [address] [facility] [address] [id number] [place] 153741500 Jan, [facility] [place] [address] [facility] [address] [id number] [place] 250175472 Jan, [facility] [place] [address] [facility] [address] [id number] [place] 307385695 Jan, Abscess L02.91 [facility] [place] [address] [facility] [address] [id number] [place], [place] 788523591 December, DM neuro manif type II E11.40 ; Pure hyperglyceridemia E78.1 ; Essential (primary) hypertension I10 and Type 2 diabetes mellitus without complication E11.9 [facility] [place] [address] [facility] [address] [id number] [place] 510228669 Oct, [facility] [place] [address] [facility] [address] [id number] [place] 216121649 Sep, [facility] [place] [address] [facility] [address] [id number] [place] 159027319 Sep, [facility] [place] [address] [facility] [address] [id number] [place] 505130999 Sep, [facility] [place] [address] [facility] [address] [id number] [place] 117846873 Sep, Type 2 diabetes mellitus without complication E11.9 ; Pure hyperglyceridemia E78.1 ; Cardiac murmur, unspecified R01.1 and Essential (primary) hypertension I10 [facility] [place] [address] [facility] [address] [id number] [place] [id number] Aug, [facility] [place] [address] [facility] [address] [id number] [place] 856369545 Jul, [facility] [place] [address] [facility] [address] [id number] [place], [place] 121503883 Jul, [facility] [place] [address] [facility] [address] [id number] [place] 627402639 Jun, [facility] [place] [address] [facility] [address] [id number] [place] 017995660 Jun, [facility] [place] [address] [facility] [address] [id number] [place] 715743629 May, [facility] [place] [address] [facility] [address] [id number] [place], [place] 442234416 May, [facility] [place] [address] [facility] [address] [id number] [place], [place] [id number] May, [facility] [place] [address] [facility] [address] [id number] [place] 723592846 May, [facility] [place] [address] [facility] [address] [id number] [place], [place] 834571445 May, [facility] [place] [address] [place] [address] [address] [id number] [place], [place] 637407188 May, [facility] [place] [address] [place] [address] [address] [id number] [place], [place] [id number] Apr, Onychomycosis 110.1 [facility] [place] [address] [place] [address] [address] [id number] [place], [place] [id number] Apr, [facility] [place] [address] [place] [address] [address] [id number] [place], [place] [id number] Apr, Nail dystrophy 703.8 [facility] [place] [address] [place] [address] [address] [id number] [place], [place] [id number] 08 Apr, 2015 Ingrown nail 703.0 [facility] [place] [address] [place] [address] [address] [id number] [place], [place] [id number] Apr, Ingrown nail 703.0 [facility] [place] [address] [place] [address] [address] [id number] [place] [id number] Mar, [facility] [place] [address] [place] [address] [address] [id number] [place] 938122822 Mar, Diabetic neuropathy 250.60 ; Fibromyalgia 729.1 and Lumbago 724.2 [facility] [place] [address] [place] [address] [address] [id number] [place], [place] [id number] Mar, [facility] [place] [address] [place] [address] [address] [id number] [place], [place] 705524770 Jan, Diabetes mellitus without mention of complication, type II or unspecified type, uncontrolled 250.02 and Hypomagnesemia 275.2 [facility] [place] [address] [place] [address] [address] [id number] [place], [place] 408572557 Jan, [facility] [place] [address] [place] [address] [address] [id number] [place], [place] [id number] Jan, Coronary atherosclerosis of unspecified type of vessel, round valley or graft 414.00 ; Essential hypertension, benign 401.1 ; Other and unspecified hyperlipidemia 272.4 ; Diabetes mellitus without mention of complication, type II or unspecified type, uncontrolled 250.02 ; Depressive disorder, not elsewhere classified 311 and Restless legs syndrome [RLS] 333.94 [facility] [address] [place] [address] C [id number] [place], [place] [id number] Jan, [facility] [place] [address] [place] [address] C [id number] [place], [place] 196084645 December, Sciatica 724.3 ; Muscle spasm 728.85 ; UTI (urinary tract infection) 599.0 and Dysuria 788.1 [facility] [address] [place] [address] [address] [id number] [place], [place] [id number] December, [facility] [address] [place] [address] C [id number] [place] [id number] December, Scabies 133.0 and Leg pain 729.5 [facility] [address] [id number] [address] Nov, [facility] [id number], [place] [address] Nov, [facility] [address] [place] [address] C [id number] [place] [id number] Aug, [facility] [address] [id number], [place] [address] Aug, [facility] [place] [address] [place] [address] C [id number] [place] 004670136 Jul, [facility] [address] [id number], [place] [address] Jul, [facility] [address] [place] [address] C [id number] [place] [id number] Jul, [facility] [address] [id number], [place] [address] Jul, [facility] [place] [address] [place] [address] [address] [id number] [place] [id number] Jul, [facility] [place] [facility] [address] [id number] [place] [address] Jul, [facility] [place] [address] [id number] [place] 716636746 Jun, [facility] [place] [facility] [address] [facility] [id number] [place] [address] Jun, [facility] [place] [address] [id number] [place] [id number] Jun, [facility] [place] [facility] [address] [id number] [place] [address] Jun, [facility] [place] [address] [id number] [place] 142976942 May, [facility] [place] [facility] [address] [facility] [id number] [place] [address] May, [facility] [place] [facility] [address] [id number] [place] [address] Apr, [facility] [place] [facility] [address] [id number] [place] [address] Apr, [facility] [place] [address] [facility] [[email or web address] ST [address] [id number] [place] [id number] Apr, [facility] [place] [facility] [address] [facility] [id number] [place] [address] Apr, [facility] [place] [address] [facility] [[email or web address] [address] [id number] [place] 670343747 Apr, [facility] [place] [facility] [address] [id number] [place] [address] Apr, [facility] [place] [facility] [address] [id number] [place] [address] Apr, [facility] [place] [address] [id number] [place] [id number] Apr, [facility] [place] [facility] [address] [facility] [id number] [place] [address] Apr, [facility] [place] [address] [id number] [place] [id number] Apr, [facility] [place] [facility] [address] [id number] [place] [address] Apr, [facility] [place] [facility] [address] [facility] [id number] [place] [address] Apr, [facility] [place] [address] [id number] [place] [id number] Apr, [facility] [place] [address] [id number] [place], [place] 954791615 Apr, [facility] [place] [facility] [address] [id number] [place] [address] Apr, [facility] [place] [facility] [address] [facility] [id number] [place] [address] Apr, [facility] [place] [address] [facility] [[email or web address] ST [address] [id number] [place] [id number] Mar, [facility] [place] [facility] [address] [id number] [place] [address] Mar, [facility] [place] [address] [id number] [place] 711581551 Mar, [facility] [address] [facility] [id number] [place] [address] Mar, [facility] [place] [address] [id number] [place], [place] [id number] Feb, [facility] [place] [facility] [address] [id number] [place] [address] Feb, [facility] [place] [address] [id number] [place] [id number] December, [facility] [place] [facility] [address] [id number] [place] [address] December, [facility] [place] [address] [facility] [[email or web address] ST [address] [id number] [place] 805869895 December, [facility] [place] [facility] [address] [id number] [place] [address] December, [facility] [place] [address] [id number] [place] [id number] Nov, [facility] [address] [id number] [place] [address] Nov, [facility] [place] [address] [id number] [place], [place] [id number] Nov, [facility] [address] [id number] [place] [address] Nov, [facility] [place] [address] [id number] [place], [place] [id number] Nov, [facility] [address] [id number] [place] [address] Nov, [facility] [address] [id number] [place] [address] Oct, [facility] [address] [id number] [place] [address] Oct, [facility] [place] [facility] [address] [id number] [place] [address] Aug, [facility] [address] [id number] [place] [address] Aug, [facility] [place] [address] [facility] [[email or web address] ST [address] [id number] [place] [id number] Aug, [facility] [place] [facility] [address] [id number] [place] [address] Aug, [facility] [place] [facility] [address] [id number] [place] [address] Aug, [facility] [place] [facility] [address] [id number] [place] [address] Aug, [facility] [place] [address] [id number] [place], [place] [id number] Jul, [facility] [place] [facility] [address] [id number] [place] [address] 13 Jul, 2013 [facility] [address] [id number] [place] [address] Jul, [facility] [place] [facility] [address] [id number] [place] [address] Jul, [facility] [address] [id number] [place] [address] Jun, [facility] [place] [facility] [address] [id number] [place] [address] Jun, [facility] [address] [id number] [place] [address] Jun, [facility] [address] [id number] [place] [address] Jun, [facility] [place] [facility] [address] [id number] [place] [address] Jun, [facility] [address] [id number] [place] [address] 07 Jun, 2013 [facility] [place] [facility] [address] [id number] [place] [address] Jun, [facility] [address] [facility] [id number] [place] [address] 06 Jun, 2013 [facility] [place] [facility] [address] [id number] [place] [address] 06 Jun, 2013 [facility] [place] [facility] [address] [id number], [place] [address] 18 May, 2013 [facility] [place] [facility] [address] [id number] [place] [address] 18 May, 2013 [facility] [place] [facility] [address] [id number] [place] [address] 16 May, 2013 [facility] [place] [facility] [address] [id number] [place] [address] 16 May, 2013 [facility] [place] [facility] [address] [id number] [place] [address] 14 May, 2013 [facility] [place] [facility] [address] [id number] [place] [address] 14 May, 2013 [facility] [place] [facility] [address] [id number] [place] [address] 04 May, 2013 [facility] [place] [facility] [address] [id number] [place] [address] Apr, [facility] [place] [facility] [address] [id number] [place] [address] Mar, [facility] [place] [facility] [address] [id number] [place] [address] Mar, [facility] [place] [facility] [address] [id number] [place] [address] Mar, [facility] [place] [facility] [address] [id number] [place] [address] Mar, [facility] [place] [facility] [address] [id number] [place] [address] Feb, [facility] [place] [facility] [address] [id number], [place] [address] Feb, [facility] [place] [facility] [address] [id number], [place] [address] Feb, [facility] [place] [facility] [address] [id number], [place] [address] Feb, [facility] [place] [facility] [address] [id number] [place] [address] Feb, [facility] [place] [facility] [address] [id number], [place] [address] Feb, [facility] [place] [facility] [address] [id number], [place] [address] Jan, [facility] [place] [facility] [address] [id number], [place] [address] Jan, [facility] [address] [facility] [id number] [address] Jan, [facility] [address] [facility] [id number], [place] [address] Jan, IMMUNIZATIONS No Known Immunizations SOCIAL HISTORY Never Assessed REASON FOR VISIT refill PLAN OF CARE VITAL SIGNS MEDICATIONS Medication Instructions Dosage Frequency Start Date End Date Duration Status Ropinirole HCl 0.5 MG Orally HS 3 tablets Jun, Active RESULTS No Results PROCEDURES No Known procedures INSTRUCTIONS MEDICATIONS ADMINISTERED No Known Medications MEDICAL (GENERAL) HISTORY Type Description Date Medical History Atherosclerotic heart disease of [place] coronary artery without angina pectoris Medical [...]
--- OUTSIDE RECORDS SUMMARY | 2019-02-01 09:30 | XMS REPORT ---
Author [facility] [place] eClinicalWorks Address Unknown Phone Unavailable Care Team Providers Care Belt Lacer Name Role Phone SJ ALY CP Unavailable Allergies, Adverse Reactions, Alerts Substance Reaction Event Type N.K.D.A. Info Not Available Non Drug Allergy Problems Problem Type Condition ICD-9 Code Onset Dates Condition Status Problem Pain in soft tissues of limb 729.5 Active Assessment Lumbago 724.2 Active Problem Pain in joint, forearm 719.43 Active Assessment Fibromyalgia 729.1 Active Problem Shortness of breath 786.05 Active Problem Solitary pulmonary nodule 793.11 Active Problem Pure hyperglyceridemia 272.1 Active Problem Hypomagnesemia 275.2 Active Problem Undiagnosed cardiac murmurs 785.2 Active Problem Depressive disorder, not elsewhere classified 311 Active Problem Restless legs syndrome [RLS] 333.94 Active Problem Diabetic neuropathy 250.60 Active Assessment Diabetic neuropathy 250.60 Active Problem Hidradenitis 705.83 Active Problem Other dyspnea and respiratory abnormalities 786.09 Active Problem Coronary atherosclerosis of unspecified type of vessel, eyak or graft 414.00 Active Problem Personal history [...] Active Problem Unspecified essential hypertension 401.9 Active Medications Medication Code System Code Instructions Start Date End Date Status Dosage Crestor [facility] [address]-58 40 mg May 11, 2014 1 tablet by Oral route 1 time per day Cymbalta [facility] [address]-01 60 mg November 28, 2013 1 Capsule by Oral route 1 time per day metformin [facility] [address]-75 1,000 mg Aug 04, 2014 take 1 tablet by Oral route 2 times per day Tramadol HCl [facility] [address]-34 50 MG Orally every 8 hrs Apr 02, 2015 1 tablet as needed Baclofen [facility] [address]-75 10 MG Orally Three times a day as needed muscle spasm January 11, 2015 1 tablet with food or milk Aspirin [facility] [address]-20 81 mg January 27, 2013 1 tablet by Oral route 1 time per day Lipofen [facility] [address]-11 150 mg May 11, 2014 take 1 capsule (150 mg) by oral route once daily with food Requip [facility] [address]-80 0.5 mg Sep 05, 2014 3 tablet by Oral route 1 time per day 1-3 hours before HS Gabapentin [facility] [address]-79 600 MG Orally Three times a day January 03, 2015 1 tablet Cyclobenzaprine HCl [facility] [address]-65 5 MG Orally Three times a day, PRN Apr 02, 2015 Apr 02, 2015 1 tablet Toprol XL [facility] [address]-09 100 MG Orally Sep 05, 2014 take 1 tablet by Oral route 1 time per day Metformin HCl [facility] 54536482583 1000MG TAKE ONE TABLET BY MOUTH TWICE DAILY Procedures Procedure Coding System Code Date Office Visit, Est Pt., Level 3 CPT-4 65511 Apr 02, 2015 Vital Signs Date/Time: Apr 02, 2015 Temperature 98.6 F Weight 172.6 lbs Height 63 in BMI 30.57 Index Blood Pressure Diastolic 86 mmHg Blood Pressure Systolic 138 mmHg Cardiac Monitoring Heart Rate 80 bpm Results No Known Results Summary Purpose eClinicalWorks Submission
--- OUTSIDE RECORDS SUMMARY | 2019-02-01 09:30 | XMS REPORT ---
Author Author [facility]J [facility] [place] Address [address] [place] [address] Care Team Providers Care Furnace Mechanic Name Role Phone ALYSJ Unavailable PROBLEMS Type Condition ICD9-CM Code LWR22-IV Code Onset Dates Condition Status SNOMED Code Problem Personal history of tobacco use, presenting hazards to health V15.82 Active 4678175689084 Problem Solitary pulmonary nodule 793.11 Active 195823848 Problem Other dyspnea and respiratory abnormalities 786.09 Active 477100100 Problem Chest pain, unspecified 786.50 Active 39033507 Problem Shortness of breath 786.05 Active 238126476 Problem Undiagnosed cardiac murmurs 785.2 Active 147672748 Problem Pain in soft tissues of limb 729.5 Active 94362989 Problem Unspecified myalgia and myositis 729.1 Active 869468525 Problem Pain in joint, forearm 719.43 Active 352948609 Problem Type 2 diabetes mellitus without complication E11.9 Active 38520914 Problem Hidradenitis 705.83 Active 53564378 Problem Cardiac murmur, unspecified R01.1 Active 546907748 Problem Unspecified hypertrophic and atrophic condition of skin 701.9 Active 295268065 Problem Essential (primary) hypertension I10 Active 23891919 Problem Type 2 diabetes mellitus with hyperglycemia E11.65 Active 110025648649115 Problem Pure hyperglyceridemia E78.1 Active 765567895 Problem Chronic obstructive pulmonary disease, unspecified COPD type J44.9 Active 40643234 Problem Essential hypertension I10 Active 85830007 Problem Essential hypertension, benign 401.1 Active 4655487 Problem Unspecified essential hypertension 401.9 Active 21434958 Problem Coronary atherosclerosis of unspecified type of vessel, samish or graft 414.00 Active 952616711 Problem Restless legs syndrome G25.81 Active 79590818 Problem Type 2 diabetes mellitus with diabetic neuropathy, unspecified E11.40 Active 8103537046902 Problem DM neuro manif type II E11.40 Active 323619597 Problem Fibromyalgia M79.7 Active 386680397 Problem Other and unspecified hyperlipidemia 272.4 Active 19720849 Problem Pure hyperglyceridemia 272.1 Active 764878424 Problem Depressive disorder, not elsewhere classified 311 Active 47205911 Problem Nondependent tobacco use disorder 305.1 Active 598083545 Problem Hypomagnesemia 275.2 Active 181318692 Problem Diabetic neuropathy 250.60 Active 079500431 Problem Diabetes mellitus without mention of complication, type II or unspecified type, uncontrolled 250.02 Active 433763762 Problem Restless legs syndrome [RLS] 333.94 Active 11174137 ALLERGIES No Information ENCOUNTERS Encounter Location Date Diagnosis [facility] [place] [address] [place] [address] C [id number] [place] [id number] Oct, [facility] [place] [address] [place] [address] C [id number] [place] [id number] Oct, Restless legs syndrome G25.81 [facility] [place] [address] [place] [address] C [id number] [place], [place] [id number] Aug, Type 2 diabetes mellitus with hyperglycemia E11.65 ; Restless legs syndrome G25.81 ; Fibromyalgia M79.7 ; Essential hypertension I10 and Urinary urgency R39.15 [facility] [place] [address] [facility] [address] [id number] [place] [id number] May, [facility] [place] [address] [place] [address] C [id number] [place] [id number] May, Type 2 diabetes mellitus with hyperglycemia E11.65 [facility] [place] [address] [place] [address] C [id number] [place] 436761410 May, [facility] [place] [address] [place] [address] [address] [id number] [place] [id number] Apr, Type 2 diabetes mellitus with hyperglycemia E11.65 [facility] [place] [address] [place] [address] [address] [id number] [place] [id number] Apr, [facility] [place] [address] [place] [address] C [id number] [place] [id number] 11 Apr, 2017 Hospital discharge follow-up Z09 ; Cardiac murmur, unspecified R01.1 ; Tobacco abuse Z72.0 and Chronic obstructive pulmonary disease, unspecified COPD type J44.9 [facility] [place] [address] [place] [address] [address] [id number] [place] [id number] Mar, Type 2 diabetes mellitus with hyperglycemia E11.65 [facility] [place] [address] [facility] [address] [id number] [place] 808140213 Feb, Type 2 diabetes mellitus with hyperglycemia E11.65 and Essential hypertension I10 [facility] [place] [address] [facility] [address] [id number] [place] 909505436 Feb, Restless legs syndrome G25.81 ; Type 2 diabetes mellitus with hyperglycemia E11.65 ; Essential hypertension I10 and Right upper quadrant pain R10.11 [facility] [place] [address] [facility] [address] [id number] [place] [id number] Feb, [facility] [place] [address] [facility] [address] [id number] [place] [id number] Feb, [facility] [place] [address] [facility] [address] [id number] [place] 300495394 Jan, Type 2 diabetes mellitus with hyperglycemia E11.65 and Right sided abdominal pain R10.9 [facility] [place] [address] [facility] [address] [id number] [place] [id number] Jan, [facility] [place] [address] [facility] [address] [id number] [place] 137144997 Jan, Nausea R11.0 ; Essential hypertension I10 and Dizziness R42 [facility] [place] [address] [facility] [address] [id number] [place] [id number] Jan, [facility] [place] [address] [facility] [address] [id number] [place] 114120081 Nov, [facility] [place] [address] [facility] [address] [id number] [place] [id number] Nov, [facility] [place] [address] [facility] [address] [id number] [place] 878224985 Oct, [facility] [place] [address] [facility] [address] [id number] [place] 533121254 Oct, [facility] [place] [address] [facility] [address] [id number] [place] [id number] Oct, [facility] [place] [address] [facility] [address] [id number] [place] 577315794 Sep, [facility] [address] [facility] [id number] [place] [address] 17 Sep, 2016 Ganglion of tendon M67.40 and DM neuro manif type II E11.40 [facility] [place] [address] [facility] [address] [id number] [place] [id number] Aug, Pure hyperglyceridemia E78.1 [facility] [place] [address] [facility] [address] [id number] [place] [id number] Aug, [facility] [place] [address] [facility] [address] [id number] [place] [id number] Aug, [facility] [place] [address] [facility] [address] [id number] [place] 782549289 Aug, [facility] [place] [address] [facility] [address] [id number] [place] 751319230 Aug, Fibromyalgia M79.7 [facility] [place] [address] [facility] [address] [id number] [place] [id number] Aug, [facility] [place] [address] [facility] [address] [id number] [place] 880530721 Aug, Fibromyalgia M79.7 [facility] [place] [address] [facility] [address] [id number] [place] 403490020 Aug, Fibromyalgia M79.7 ; Mass of right foot R22.41 and Type 2 diabetes mellitus with hyperglycemia E11.65 [facility] [place] [address] [facility] [address] [id number] [place] 112581611 Jun, [facility] [place] [address] [facility] [address] [id number] [place] 891818093 Jun, Furuncle L02.92 and Methicillin resistant Staph aureus culture positive Z22.322 [facility] [place] [address] [facility] [address] [id number] [place] 762866989 Jun, Furuncle L02.92 ; Cellulitis of other specified site L03.818 and Methicillin resistant Staph aureus culture positive Z22.322 [facility] [place] [address] [facility] [address] [id number] [place] 291688202 Jun, [facility] [place] [address] [facility] [address] [id number] [place] 166219704 Jun, Furuncle L02.92 and Cellulitis of other specified site L03.818 [facility] [place] [address] [facility] [address] [id number] [place] 355816752 May, Pure hyperglyceridemia E78.1 ; Abscess L02.91 ; Restless legs syndrome G25.81 and Type 2 diabetes mellitus with hyperglycemia E11.65 [facility] [place] [address] [facility] [address] [id number] [place] [id number] May, [facility] [place] [address] [facility] [address] [id number] [place] [id number] May, [facility] [place] [address] [facility] [address] [id number] [place] 764427954 May, [facility] [place] [address] [facility] [address] [id number] [place] 543039130 Apr, [facility] [place] [address] [place] [address] [address] [id number] [place] 996351441 Mar, Well woman exam Z01.419 ; Encounter for screening mammogram for breast cancer Z12.31 and History of cervical cancer Z85.41 [facility] [place] [address] [place] [address] [address] [id number] [place] [id number] Mar, Insect bite, multiple W57.XXXA ; Type 2 diabetes mellitus with diabetic neuropathy, unspecified E11.40 ; Essential (primary) hypertension I10 ; DM neuro manif type II E11.40 and Restless legs syndrome G25.81 [facility] [place] [address] [facility] [address] [id number] [place] 713580691 Feb, [facility] [place] [address] [facility] [address] [id number] [place] [id number] Feb, [facility] [place] [address] [facility] [address] [id number] [place], [place] 749839817 Feb, [facility] [place] [address] [facility] [address] [id number] [place], [place] 758364509 Jan, [facility] [place] [address] [facility] [address] [id number] [place], [place] 864542614 Jan, [facility] [place] [address] [facility] [address] [id number] [place] 001838992 Jan, Abscess L02.91 [facility] [place] [address] [facility] [address] [id number] [place] 306706804 December, DM neuro manif type II E11.40 ; Pure hyperglyceridemia E78.1 ; Essential (primary) hypertension I10 and Type 2 diabetes mellitus without complication E11.9 [facility] [place] [address] [facility] [address] [id number] [place] 418323424 Oct, [facility] [place] [address] [facility] [address] [id number] [place] 475197648 Sep, [facility] [place] [address] [facility] [address] [id number] [place] [id number] Sep, [facility] [place] [address] [facility] [address] [id number] [place] 050576310 Sep, [facility] [place] [address] [facility] [address] [id number] [place] 698355463 Sep, Type 2 diabetes mellitus without complication E11.9 ; Pure hyperglyceridemia E78.1 ; Cardiac murmur, unspecified R01.1 and Essential (primary) hypertension I10 [facility] [place] [address] [facility] [address] [id number] [place] [id number] Aug, [facility] [place] [address] [facility] [address] [id number] [place] 127772167 Jul, [facility] [place] [address] [facility] [address] [id number] [place] 445889364 Jul, [facility] [place] [address] [facility] [address] [id number] [place] 583992264 Jun, [facility] [place] [address] [facility] [address] [id number] [place] 221534261 Jun, [facility] [place] [address] [facility] [address] [id number] [place], [place] 853372655 May, [facility] [place] [address] [facility] [address] [id number] [place], [place] 533742602 May, [facility] [place] [address] [facility] [address] [id number] [place] 914365959 May, [facility] [place] [address] [facility] [address] [id number] [place] 810512776 May, [facility] [place] [address] [facility] [address] [id number] [place], [place] 903101150 May, [facility] [place] [address] [place] [address] [address] [id number] [place], [place] 329523476 May, [facility] [place] [address] [place] [address] [address] [id number] [place], [place] [id number] Apr, Onychomycosis 110.1 [facility] [place] [address] [place] [address] [address] [id number] [place], [place] 714710105 Apr, [facility] [place] [address] [place] [address] [address] [id number] [place] [id number] Apr, Nail dystrophy 703.8 [facility] [place] [address] [place] [address] [address] [id number] [place], [place] 730978373 08 Apr, 2015 Ingrown nail 703.0 [facility] [place] [address] [place] [address] [address] [id number] [place], [place] [id number] Apr, Ingrown nail 703.0 [facility] [place] [address] [place] [address] [address] [id number] [place] 557984951 Mar, [facility] [place] [address] [place] [address] [address] [id number] [place] 749395682 Mar, Diabetic neuropathy 250.60 ; Fibromyalgia 729.1 and Lumbago 724.2 [facility] [place] [address] [place] [address] [address] [id number] [place], [place] 805191208 Mar, [facility] [place] [address] [place] [address] [address] [id number] [place], [place] 376453500 Jan, Diabetes mellitus without mention of complication, type II or unspecified type, uncontrolled 250.02 and Hypomagnesemia 275.2 [facility] [place] [address] [place] [address] [address] [id number] [place], [place] 954509160 Jan, [facility] [place] [address] [place] [address] [address] [id number] [place] 873381196 Jan, Coronary atherosclerosis of unspecified type of vessel, samish or graft 414.00 ; Essential hypertension, benign 401.1 ; Other and unspecified hyperlipidemia 272.4 ; Diabetes mellitus without mention of complication, type II or unspecified type, uncontrolled 250.02 ; Depressive disorder, not elsewhere classified 311 and Restless legs syndrome [RLS] 333.94 [facility] [address] [place] [address] C [id number] [place] [id number] Jan, [facility] [place] [address] [place] [address] C [id number] [place] [id number] December, Sciatica 724.3 ; Muscle spasm 728.85 ; UTI (urinary tract infection) 599.0 and Dysuria 788.1 [facility] [address] [place] [address] [address] [id number] [place] 027972497 December, [facility] [address] [place] [address] C [id number] [place], [place] 521292810 December, Scabies 133.0 and Leg pain 729.5 [facility] [address] [id number] [address] Nov, [facility] [address], [place] [address] Nov, [facility] [address] [place] [address] C [id number] [place] [id number] Aug, [facility] [address] [id number], [place] [address] Aug, [facility] [place] [address] [place] [address] C [id number] [place] [id number] Jul, [facility] [address] [id number], [place] [address] Jul, [facility] [address] [place] [address] C [id number] [place] [id number] Jul, [facility] [address] [id number], [place] [address] Jul, [facility] [place] [address] [place] [address] [address] [id number] [place] [id number] Jul, [facility] [place] [facility] [address] [id number] [facility] [place] [address] Jul, [facility] [place] [address] [id number] [place] [id number] Jun, [facility] [place] [facility] [address] [facility] [id number] [facility] [place] [address] Jun, [facility] [place] [address] [id number] [place] [id number] Jun, [facility] [place] [facility] [address] [id number] [facility] [place] [address] Jun, [facility] [place] [address] [id number] [place] [id number] May, [facility] [place] [facility] [address] [facility] [id number] [place] [address] May, [facility] [place] [facility] [address] [id number] [place] [address] Apr, [facility] [place] [facility] [address] [id number] [place] [address] Apr, [facility] [place] [address] [facility] [address] [id number] [place] 085640499 Apr, [facility] [place] [facility] [address] [facility] [id number] [place] [address] Apr, [facility] [place] [address] [facility] [address] [id number] [place] [id number] Apr, [facility] [place] [facility] [address] [id number] [facility] [place] [address] Apr, [facility] [place] [facility] [address] [id number] [place] [address] Apr, [facility] [place] [address] [id number] [place], [place] [id number] Apr, [facility] [place] [facility] [address] [facility] [id number] [place] [address] Apr, [facility] [place] [address] [id number] [place] 115631823 Apr, [facility] [place] [facility] [address] [id number] [place] [address] Apr, [facility] [place] [facility] [address] [facility] [id number] [place] [address] Apr, [facility] [place] [address] [id number] [place] 702376122 Apr, [facility] [place] [address] [id number] [place] 412832793 Apr, [facility] [place] [facility] [address] [id number] [place] [address] Apr, [facility] [place] [facility] [address] [facility] [id number] [place] [address] Apr, [facility] [place] [address] [facility] [address] [id number] [place] 158867895 Mar, [facility] [place] [facility] [address] [id number] [place] [address] Mar, [facility] [place] [address] [id number] [place] 402990355 Mar, [facility] [address] [facility] [id number] [place] [address] Mar, [facility] [place] [address] [id number] [place] [id number] Feb, [facility] [place] [facility] [address] [id number] [place] [address] Feb, [facility] [place] [address] [id number] [place] [id number] December, [facility] [place] [facility] [address] [id number] [place] [address] December, [facility] [place] [address] [facility] [address] [id number] [place], [place] [id number] December, [facility] [place] [facility] [address] [id number] [place] [address] December, [facility] [place] [address] [id number] [place] 107857675 Nov, [facility] [address] [id number] [place] [address] Nov, [facility] [place] [address] [id number] [place] 755165631 Nov, [facility] [address] [id number] [place] [address] Nov, [facility] [place] [address] [id number] [place] 764329111 Nov, [facility] [address] [id number] [place] [address] Nov, [facility] [address] [id number] [place] [address] Oct, [facility] [address] [id number] [place] [address] Oct, [facility] [place] [facility] [address] [id number] [place] [address] Aug, [facility] [address] [id number] [place] [address] Aug, [facility] [place] [address] [facility] [address] [id number] [place], [place] [id number] Aug, [facility] [place] [facility] [address] [id number] [place] [address] Aug, [facility] [place] [facility] [address] [id number] [place] [address] Aug, [facility] [place] [facility] [address] [id number] [place] [address] Aug, [facility] [place] [address] [id number] [place] [id number] Jul, [facility] [place] [facility] [address] [id number] [place] [address] 13 Jul, 2013 [facility] [address] [id number] [place] [address] Jul, [facility] [place] [facility] [address] [id number] [place] [address] Jul, [facility] [address] [id number] [place] [address] Jun, [facility] [place] [facility] [address] [id number] [place] [address] Jun, [facility] [address] [id number] [place] [address] Jun, [facility] [address] [id number] [place] [address] Jun, [facility] [place] [facility] [address] [id number] [place] [address] Jun, [facility] [address] [id number] [place] [address] 07 Jun, 2013 [facility] [place] [facility] [address] [id number] [place] [address] Jun, [facility] [address] [facility] [id number] [place] [address] 06 Jun, 2013 [facility] [place] [facility] [address] [id number] [place] [address] 06 Jun, 2013 [facility] [place] [facility] [address] [id number], [place] [address] 18 May, 2013 [facility] [place] [facility] [address] [id number] [place] [address] 18 May, 2013 [facility] [place] [facility] [address] [id number] [place] [address] 16 May, 2013 [facility] [place] [facility] [address] [id number] [place] [address] 16 May, 2013 [facility] [place] [facility] [address] [id number] [place] [address] 14 May, 2013 [facility] [place] [facility] [address] [id number] [place] [address] 14 May, 2013 [facility] [place] [facility] [address] [id number] [place] [address] 04 May, 2013 [facility] [place] [facility] [address] [id number] [place] [address] Apr, [facility] [place] [facility] [address] [id number] [place] [address] Mar, [facility] [place] [facility] [address] [id number] [place] [address] Mar, [facility] [place] [facility] [address] [id number] [place] [address] Mar, [facility] [place] [facility] [address] [id number] [place] [address] Mar, [facility] [place] [facility] [address] [id number] [place] [address] Feb, [facility] [place] [facility] [address] [id number], [place] [address] Feb, [facility] [place] [facility] [address] [id number], [place] [address] Feb, [facility] [place] [facility] [address] [id number], [place] [address] Feb, [facility] [place] [facility] [address] [id number] [place] [address] Feb, [facility] [place] [facility] [address] [id number], [place] [address] Feb, [facility] [place] [facility] [address] [id number], [place] [address] Jan, [facility] [place] [facility] [address] [id number], [place] [address] Jan, [facility] [address] [facility] [id number] [place] [address] Jan, [facility] [address] [facility] [id number], [place] [address] Jan, IMMUNIZATIONS No Known Immunizations SOCIAL HISTORY Never Assessed REASON FOR VISIT med request - repository PLAN OF CARE VITAL SIGNS MEDICATIONS Medication Instructions Dosage Frequency Start Date End Date Duration Status Ropinirole HCl 0.5 MG Orally HS 3 tablets Jun, Active Atorvastatin Calcium 40 mg Orally Once a day 1 tablet 24h May, Active Lisinopril 2.5 MG Orally Once a day 1 tablet 24h 90 days Active RESULTS No Results PROCEDURES No Known procedures INSTRUCTIONS MEDICATIONS ADMINISTERED No Known Medications MEDICAL (GENERAL) HISTORY Type Description Date Medical History 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
[2019-02-01 09:31] VITALS: BP 191/85
--- OUTSIDE RECORDS SUMMARY | 2019-02-01 09:31 | XMS REPORT ---
Author EDUARDO Myers [facility] [employer] Address Unknown Phone Unavailable Care Team Providers Care Instructor Robotics Name Role Phone EDUARDO WEBB CP Unavailable [...] Coronary atherosclerosis of unspecified type of vessel, [place] or graft 414.00 Active Problem Pure hyperglyceridemia [...] Instructions Start Date End Date Status Dosage Jaime Newsome [facility] [address]-68 250-50 MCG/DOSE by inhalation route Twice a day 1 puff Results No Known Results Summary Purpose eClinical[employer] Submission
--- OUTSIDE RECORDS SUMMARY | 2019-02-01 09:31 | XMS REPORT ---
Author JEAN-PIERRE Smith Organization [employer] Address Unknown Phone Unavailable Care Team Providers Care Beef Trimmer Name Role Phone JEAN-PIERRE PARRISH CP Unavailable [...] of vessel, [place] or graft 414.00 Active Problem Personal history [...] Start Date End Date Status Dosage Gabapentin [facility] [address]-01 600 MG Orally Three times a day January 03, 2015 1 tablet Results No Known Results Summary Purpose eClinicalWorks Submission
--- OUTSIDE RECORDS SUMMARY | 2019-02-01 09:31 | XMS REPORT ---
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 Name Role Phone ALYSJ Unavailable PROBLEMS Type Condition ICD9-CM Code [id number] Code Onset Dates Condition Status SNOMED Code Problem Solitary pulmonary nodule 793.11 Active 264387233 Problem Chest pain, unspecified 786.50 Active 14083696 Problem Personal history of tobacco use, presenting hazards to health V15.82 Active 5235909346015 Problem Other dyspnea and respiratory abnormalities 786.09 Active 800385826 Problem Shortness of breath 786.05 Active 795625075 Problem Undiagnosed cardiac murmurs 785.2 Active 348946540 Problem Pain in soft tissues of limb 729.5 Active 19066365 Problem Unspecified myalgia and myositis 729.1 Active 788416425 Problem Diabetic neuropathy 250.60 Active 227502710 Problem Pain in joint, forearm 719.43 Active 390734473 Problem Type 2 diabetes mellitus without complication E11.9 Active 77241063 Problem Hidradenitis 705.83 Active 80839803 Problem Cardiac murmur, unspecified R01.1 Active 480697469 Problem Pure hyperglyceridemia E78.1 Active 816490283 Problem Essential (primary) hypertension I10 Active 69390166 Problem Essential hypertension I10 Active 85044724 Problem DM neuro manif type II E11.40 Active 840925845 Problem Unspecified essential hypertension 401.9 Active 31574766 Problem Coronary atherosclerosis of unspecified type of vessel, [place] or graft 414.00 Active 769747910 Problem Unspecified hypertrophic and atrophic condition of skin 701.9 Active 855180490 Problem Type 2 diabetes mellitus with diabetic neuropathy, unspecified E11.40 Active 9461302090685 Problem Type 2 diabetes mellitus with hyperglycemia E11.65 Active 674879227467372 Problem Fibromyalgia M79.7 Active 507642765 Problem Restless legs syndrome G25.81 Active 08957035 Problem Nondependent tobacco use disorder 305.1 Active 932382488 Problem Other and unspecified hyperlipidemia 272.4 Active 20817907 Problem Essential hypertension, benign 401.1 Active 9497450 Problem Depressive disorder, not elsewhere classified 311 Active 45097079 Problem Restless legs syndrome [RLS] 333.94 Active 99309810 Problem Hypomagnesemia 275.2 Active 696762871 Problem Pure hyperglyceridemia 272.1 Active 026219705 Problem Diabetes mellitus without mention of complication, type II or unspecified type, uncontrolled 250.02 Active 712365578 ALLERGIES Unknown Allergies SOCIAL HISTORY No smoking Hx information available PLAN OF CARE VITAL SIGNS MEDICATIONS Medication Instructions Dosage Frequency Start Date End Date Duration Status Lyrica 150 MG Orally Twice a day 1 capsule 12h Aug, 90 days Active RESULTS No Results PROCEDURES No Known procedures IMMUNIZATIONS No Known Immunizations
--- OUTSIDE RECORDS SUMMARY | 2019-02-01 09:31 | XMS REPORT ---
Author EDUARDO Myers [facility] eClinical[employer] Address Unknown Phone Unavailable Care Team Providers Care Supervisor [place] Name Role Phone EDUARDO WEBB CP Unavailable Allergies, Adverse Reactions, Alerts Substance Reaction Event Type Hydrocodone-Acetaminophen itching Drug Allergy Problems Problem Type Condition Code Onset Dates Condition Status Assessment Essential (primary) hypertension I10 Active Assessment Cardiac murmur, unspecified R01.1 Active Assessment Pure hyperglyceridemia E78.1 Active Assessment Type 2 diabetes mellitus without complication E11.9 Active Problem Restless legs syndrome [RLS] 333.94 [...] point hope ira or graft 414.00 Active Problem Pure hyperglyceridemia [...] Start Date End Date Status Dosage Crestor [facility] [address]-23 20 MG Orally May 11, 2014 2 tablet by Oral route 1 time per day metformin [facility] [address]-66 1,000 mg Aug 04, 2014 take 1 tablet by Oral route 2 times per day Aspirin [facility] [address]-58 81 mg January 27, 2013 1 tablet by Oral route 1 time per day Echinacea Root [facility] 0 not defined Magnesium [facility] [address]-51 250 MG Orally Once a day 1 tablet with a meal Lisinopril [facility] [address]-33 2.5 MG Orally Once a day 1 tablet Duloxetine HCl [facility] [address]-07 30 MG Orally Once a day along with 60mg capsule 1 capsule Requip [facility] [address]-98 0.5 mg Sep 05, 2014 3 tablet by Oral route 1 time per day 1-3 hours before HS Toprol XL [facility] [address]-78 100 MG Orally Sep 05, 2014 take 1 tablet by Oral route 1 time per day Melatonin [facility] [address]-33 3 MG Orally Once a day 1 tablet at bedtime as needed with food Flaxseed Oil [facility] [address]-29 1000 MG Orally not defined [place] 3 [facility] [address]8092-13730 1200 MG Orally 2 times a day 1 capsule Gabapentin [facility] [address]-07 600 MG Orally Three times a day January 03, 2015 1 tablet Cyclobenzaprine HCl [facility] [address]-08 5 MG Orally Once a day at HS Apr 02, 2015 1 tablet Multivitamins [facility] 12062-14821 Orally Once a day 1 tablet HydrOXYzine HCl [facility] [address]-90 10 MG Orally 2 times a day PRN not defined Super B Complex [facility] 54061-01596 Orally not defined Cymbalta [facility] [address]-67 60 mg November 28, 2013 1 Capsule by Oral route 1 time per day Garlic [facility] [address]-34 100 MG Orally not defined Procedures Procedure Coding System Code Date Office Visit, Est Pt., Level 3 CPT-4 65327 Sep 19, 2015 Vital Signs Date/Time: Sep 19, 2015 Temperature 98.3 F Weight 170 lbs Height 63 in BMI 30.11 Index Blood Pressure Diastolic 90, 134 mmHg Blood Pressure Systolic 162 mmHg Cardiac Monitoring Heart Rate 80 bpm Results No Known Results Summary Purpose eClinicalWorks Submission
--- OUTSIDE RECORDS SUMMARY | 2019-02-01 09:32 | XMS REPORT | Continuity of Care Document ---
Author Organization Unknown Address Unknown Allergies Active Description Code Type Severity Reaction Onset Reported/Identified Relationship to Patient Clinical Status Yes codeine ##NOMEN##,AL1,ceStruct,allergy,1237,63 Unknown N/A FACE RASH, VOMITING Yes codeine Drug N/A N/A Yes HYDROcodone Drug N/A N/A Yes oxyCODONE Drug N/A N/A Yes traMADol Drug N/A N/A Yes No Known Drug Allergies [id number] Drug Allergy Unknown N/A 04/21/2013 Medications There is no data. Problems Date Dx Coded Attending Type Code Diagnosis Diagnosed By 01/27/2013 250.02 DIABETES MELLITUS TYPE 2 - UNCOMPLICATED, UNCONTROLLED 01/27/2013 305.1 TOBACCO ABUSE 01/27/2013 729.1 FIBROMYALGIA 01/27/2013 786.50 chest pain or discomfort 01/27/2013 250.02 DIABETES MELLITUS TYPE 2 - UNCOMPLICATED, UNCONTROLLED 01/27/2013 305.1 TOBACCO ABUSE 01/27/2013 729.1 FIBROMYALGIA 01/27/2013 786.50 chest pain or discomfort 01/27/2013 250.02 DIABETES MELLITUS TYPE 2 - UNCOMPLICATED, UNCONTROLLED 01/27/2013 305.1 NICOTINE DEPENDENCE 01/27/2013 729.1 FIBROMYALGIA 01/27/2013 786.50 chest pain or discomfort 01/27/2013 STELLA CALDERÓN DO 250.02 DIABETES MELLITUS TYPE 2 - UNCOMPLICATED, UNCONTROLLED 01/27/2013 STELLA CALDERÓN DO 305.1 NICOTINE DEPENDENCE 01/27/2013 STELLA CALDERÓN DO 729.1 FIBROMYALGIA 01/27/2013 STELLA CALDERÓN DO 786.50 chest pain or discomfort 01/27/2013 KRISTA OH MD 250.02 DIABETES MELLITUS TYPE 2 - UNCOMPLICATED, UNCONTROLLED 01/27/2013 KRISTA OH MD 305.1 NICOTINE DEPENDENCE 01/27/2013 KRITSA OH MD 729.1 FIBROMYALGIA 01/27/2013 ADRIANO MD, KRISTA M 786.50 chest pain or discomfort 01/27/2013 EMORY CALDERÓN DOA K 250.02 DIABETES MELLITUS TYPE 2 - UNCOMPLICATED, UNCONTROLLED 01/27/2013 KAITLYNN CODY STELLA K 305.1 NICOTINE DEPENDENCE 01/27/2013 EMORY CALDERÓN DOA K 729.1 FIBROMYALGIA 01/27/2013 KAITLYNN DO, STELLA K 786.50 chest pain or discomfort 01/27/2013 KRISTA OH MD 250.02 DIABETES MELLITUS TYPE 2 - UNCOMPLICATED, UNCONTROLLED 01/27/2013 KRISTA OH MD 305.1 NICOTINE DEPENDENCE 01/27/2013 KRISTA OH MD 729.1 FIBROMYALGIA 01/27/2013 KRISTA OH MD 786.50 chest pain or discomfort 01/27/2013 KRISTA OH MD 250.02 DIABETES MELLITUS TYPE 2 - UNCOMPLICATED, UNCONTROLLED 01/27/2013 KRISTA OH MD 305.1 NICOTINE DEPENDENCE 01/27/2013 KRISTA OH MD 729.1 FIBROMYALGIA 01/27/2013 KRISTA OH MD 786.50 chest pain or discomfort 01/27/2013 EMORY NEGRETE MD 250.02 DIABETES MELLITUS TYPE 2 - UNCOMPLICATED, UNCONTROLLED 01/27/2013 EMORY NEGRETE MD 305.1 NICOTINE DEPENDENCE 01/27/2013 EMORY NEGRETE MD 729.1 FIBROMYALGIA 01/27/2013 EMORY NEGRETE MD 786.50 chest pain or discomfort 01/27/2013 EMORY NEGRETE MD 250.02 DIABETES MELLITUS TYPE 2 - UNCOMPLICATED, UNCONTROLLED 01/27/2013 EMORY NEGRETE MD 305.1 NICOTINE DEPENDENCE 01/27/2013 EMORY NEGRETE MD 729.1 FIBROMYALGIA 01/27/2013 EMORY NEGRETE MD 786.50 chest pain or discomfort 01/27/2013 EMORY NEGRETE MD 250.02 DIABETES MELLITUS TYPE 2 - UNCOMPLICATED, UNCONTROLLED 01/27/2013 EMORY NEGRETE MD 305.1 NICOTINE DEPENDENCE 01/27/2013 EMORY NEGRETE MD 729.1 FIBROMYALGIA 01/27/2013 EMORY NEGRETE MD 786.50 chest pain or discomfort 01/27/2013 JEAN-PIERRE PARRISH MD 250.02 DIABETES MELLITUS TYPE 2 - UNCOMPLICATED, UNCONTROLLED 01/27/2013 JEAN-PIERRE PARRISH MD 305.1 NICOTINE DEPENDENCE 01/27/2013 JEAN-PIERRE PARRISH MD 729.1 FIBROMYALGIA 01/27/2013 JEAN-PIERRE PARRISH MD 786.50 chest pain or discomfort 01/27/2013 EMORY NEGRETE MD 250.02 DIABETES MELLITUS TYPE 2 - UNCOMPLICATED, UNCONTROLLED 01/27/2013 EMORY NEGRETE MD 305.1 NICOTINE DEPENDENCE 01/27/2013 EMORY NEGRETE MD 729.1 FIBROMYALGIA 01/27/2013 EMORY NEGRETE MD 786.50 chest pain or discomfort 01/27/2013 JEAN-PIERRE PARRISH MD 250.02 DIABETES MELLITUS TYPE 2 - UNCOMPLICATED, UNCONTROLLED 01/27/2013 JEAN-PIERRE PARRISH MD 305.1 NICOTINE DEPENDENCE 01/27/2013 JEAN-PIERRE PARRISH MD 729.1 FIBROMYALGIA 01/27/2013 JEAN-PIERRE PARRISH MD 786.50 chest pain or discomfort 01/27/2013 JEAN-PIERRE PARRISH MD 250.02 DIABETES MELLITUS TYPE 2 - UNCOMPLICATED, UNCONTROLLED 01/27/2013 JEAN-PIERRE PARRISH MD 305.1 NICOTINE DEPENDENCE 01/27/2013 JEAN-PIERRE PARRISH MD 729.1 FIBROMYALGIA 01/27/2013 JEAN-PIERRE PARRISH MD 786.50 chest pain or discomfort 01/27/2013 EMORY NEGRETE MD 250.02 DIABETES MELLITUS TYPE 2 - UNCOMPLICATED, UNCONTROLLED 01/27/2013 EMORY NEGRETE MD 305.1 NICOTINE DEPENDENCE 01/27/2013 EMORY NEGRETE MD 729.1 FIBROMYALGIA 01/27/2013 EMORY NEGRETE MD 786.50 chest pain or discomfort 01/27/2013 JEAN-PIERRE PARRISH MD 250.02 DIABETES MELLITUS TYPE 2 - UNCOMPLICATED, UNCONTROLLED 01/27/2013 JEAN-PIERRE PARRISH MD 305.1 NICOTINE DEPENDENCE 01/27/2013 JEAN-PIERRE PARRISH MD 729.1 FIBROMYALGIA 01/27/2013 JEAN-PIERRE PARRISH MD 786.50 chest pain or discomfort 01/27/2013 EMORY NEGRETE MD 250.02 DIABETES MELLITUS TYPE 2 - UNCOMPLICATED, UNCONTROLLED 01/27/2013 EMORY NEGRETE MD 305.1 NICOTINE DEPENDENCE 01/27/2013 EMORY NEGRETE MD 729.1 FIBROMYALGIA 01/27/2013 EMORY NEGRETE MD 786.50 chest pain or discomfort 02/18/2013 V15.82 Nicotine abuse 02/18/2013 V15.82 Nicotine abuse 02/18/2013 CALDERÓN DO, STELLA K V15.82 Nicotine abuse 02/18/2013 KRISTA OH MD V15.82 Nicotine abuse 02/18/2013 CALDERÓN DO, STELLA K V15.82 Nicotine abuse 02/18/2013 KRISTA OH MD V15.82 Nicotine abuse 02/18/2013 KRISTA OH MD V15.82 Nicotine abuse 02/18/2013 CADEN SALAS, EMORY Olivera V15.82 Nicotine abuse 02/18/2013 CADEN SALAS, EMORY Olivera V15.82 Nicotine abuse 02/18/2013 CADEN SALAS, EMORY Olivera V15.82 Nicotine abuse 02/18/2013 SINGER SALAS, JEAN-PIERRE Olivera V15.82 Nicotine abuse 02/18/2013 EMORY NEGRETE MD V15.82 Nicotine abuse 02/18/2013 JEAN-PIERRE PARRISH MD V15.82 Nicotine abuse 02/18/2013 JEAN-PIERRE PARRISH MD V15.82 Nicotine abuse 02/18/2013 EMORY NEGRETE MD V15.82 Nicotine abuse 02/18/2013 JEAN-PIERRE PARRISH MD V15.82 Nicotine abuse 02/18/2013 EMORY NEGRETE MD V15.82 Nicotine abuse 02/25/2013 272.4 HYPERLIPIDEMIA 02/25/2013 401.1 ESSENTIAL HYPERTENSION BENIGN 02/25/2013 CALDERÓN DO, STELLA K 272.4 HYPERLIPIDEMIA 02/25/2013 CALDERÓN DO, STELLA K 401.1 ESSENTIAL HYPERTENSION BENIGN 02/25/2013 KRISTA OH MD 272.4 HYPERLIPIDEMIA 02/25/2013 KRISTA OH MD 401.1 ESSENTIAL HYPERTENSION BENIGN 02/25/2013 CALDERÓN DO, STELLA K 272.4 HYPERLIPIDEMIA 02/25/2013 CALDERÓN DO, STELLA K 401.1 ESSENTIAL HYPERTENSION BENIGN 02/25/2013 KRISTA OH MD 272.4 HYPERLIPIDEMIA 02/25/2013 KRISTA OH MD 401.1 ESSENTIAL HYPERTENSION BENIGN 02/25/2013 KRISTA OH MD 272.4 HYPERLIPIDEMIA 02/25/2013 KRISTA OH MD 401.1 ESSENTIAL HYPERTENSION BENIGN 02/25/2013 EMORY NEGRETE MD 272.4 HYPERLIPIDEMIA 02/25/2013 CADEN SALAS, EMROY Olivera 401.1 ESSENTIAL HYPERTENSION BENIGN 02/25/2013 CADEN SALAS, EMORY D 272.4 HYPERLIPIDEMIA 02/25/2013 CADEN SALAS, EMORY Olivera 401.1 ESSENTIAL HYPERTENSION BENIGN 02/25/2013 CADEN SALAS, EMORY D 272.4 HYPERLIPIDEMIA 02/25/2013 CADEN SALAS, EMORY D 401.1 ESSENTIAL HYPERTENSION BENIGN 02/25/2013 JEAN-PIERRE PARRISH MD 272.4 HYPERLIPIDEMIA 02/25/2013 JEAN-PIERRE PARRISH MD 401.1 ESSENTIAL HYPERTENSION BENIGN 02/25/2013 EMORY NEGRETE MD D 272.4 HYPERLIPIDEMIA 02/25/2013 EMORY NEGRETE MD 401.1 ESSENTIAL HYPERTENSION BENIGN 02/25/2013 JEAN-PIERRE PARRISH MD 272.4 HYPERLIPIDEMIA 02/25/2013 JEAN-PIERRE PARRISH MD 401.1 ESSENTIAL HYPERTENSION BENIGN 02/25/2013 JEAN-PIERRE PARRISH MD D 272.4 HYPERLIPIDEMIA 02/25/2013 JEAN-PIERRE PARRISH MD D 401.1 ESSENTIAL HYPERTENSION BENIGN 02/25/2013 EMORY NEGRETE MD 272.4 HYPERLIPIDEMIA 02/25/2013 EMORY NEGRETE MD 401.1 ESSENTIAL HYPERTENSION BENIGN 02/25/2013 JEAN-PIERRE PARRISH MD 272.4 HYPERLIPIDEMIA 02/25/2013 JEAN-PIERRE PARRISH MD 401.1 ESSENTIAL HYPERTENSION BENIGN 02/25/2013 EMORY NEGRETE MD 272.4 HYPERLIPIDEMIA 02/25/2013 CADEN SALAS, EMORY Olivera 401.1 ESSENTIAL HYPERTENSION BENIGN 04/20/2013 414.00 CAD 04/20/2013 785.2 UNDIAGNOSED CARDIAC MURMURS 04/20/2013 STELLA CALDERÓN DO K 414.00 CAD 04/20/2013 EMORY CALDERÓN DOA K 785.2 UNDIAGNOSED CARDIAC MURMURS 04/20/2013 KRISTA OH MD 414.00 CAD 04/20/2013 KRISTA OH MD 785.2 UNDIAGNOSED CARDIAC MURMURS 04/20/2013 EMORY CALDERÓN DOA K 414.00 CAD 04/20/2013 EMORY CALDERÓN DOA K 785.2 UNDIAGNOSED CARDIAC MURMURS 04/20/2013 KRISTA OH MD 414.00 CAD 04/20/2013 KRISTA OH MD 785.2 UNDIAGNOSED CARDIAC MURMURS 04/20/2013 KRISTA OH MD 414.00 CAD 04/20/2013 KRISTA OH MD 785.2 UNDIAGNOSED CARDIAC MURMURS 04/20/2013 CADEN SALAS, EMORY Olivera 414.00 CAD 04/20/2013 CADEN SALAS, EMORY Olivera 785.2 UNDIAGNOSED CARDIAC MURMURS 04/20/2013 CADEN SALAS, EMORY D 414.00 CAD 04/20/2013 CADEN SALAS, EMORY Olivera 785.2 UNDIAGNOSED CARDIAC MURMURS 04/20/2013 CADEN SALAS, EMORY D 414.00 CAD 04/20/2013 CADEN SALAS, EMORY Olivera 785.2 UNDIAGNOSED CARDIAC MURMURS 04/20/2013 SINGER SALAS, JEAN-PIERRE Olivera 414.00 CAD 04/20/2013 JEAN-PIERRE PARRISH MD 785.2 UNDIAGNOSED CARDIAC MURMURS 04/20/2013 CADEN SALAS, EMORY D 414.00 CAD 04/20/2013 CADEN SALAS, EMORY Olivera 785.2 UNDIAGNOSED CARDIAC MURMURS 04/20/2013 SINGER SALAS, JEAN-PIERRE D 414.00 CAD 04/20/2013 SINGER SALAS, JEAN-PIERRE Olivera 785.2 UNDIAGNOSED CARDIAC MURMURS 04/20/2013 SINGER SALAS, JEAN-PIERRE D 414.00 CAD 04/20/2013 JEAN-PIERRE PARRISH MD 785.2 UNDIAGNOSED CARDIAC MURMURS 04/20/2013 CADEN SALAS, EMORY D 414.00 CAD 04/20/2013 CADEN SALAS, EMORY Olivera 785.2 UNDIAGNOSED CARDIAC MURMURS 04/20/2013 SINGER SALAS, JEAN-PIERRE D 414.00 CAD 04/20/2013 JEAN-PIERRE PARRISH MD 785.2 UNDIAGNOSED CARDIAC MURMURS 04/20/2013 CADEN SALAS, EMORY D 414.00 CAD 04/20/2013 CADEN SALAS, EMORY Olivera 785.2 UNDIAGNOSED CARDIAC MURMURS 06/03/2013 KRISTA OH MD 311 depression 06/03/2013 STELLA CALDERÓN DO 311 depression 06/03/2013 KRISTA OH MD 311 depression 06/03/2013 KRISTA OH MD 311 depression 06/03/2013 EMORY NEGRETE MD 311 depression 06/03/2013 EMORY NEGRETE MD 311 depression 06/03/2013 EMORY NEGRETE MD 311 depression 06/03/2013 SINGER SALAS, JEAN-PIERRE Olivera 311 depression 06/03/2013 CADEN SALAS, EMORY D 311 depression 06/03/2013 SINGER SALAS, JEAN-PIERRE Olivera 311 depression 06/03/2013 SINGER SALAS, JEAN-PIERRE Olivera 311 depression 06/03/2013 CADEN SALAS, EMORY D 311 depression 06/03/2013 SINGER SALAS, JEAN-PIERRE Olivera 311 depression 06/03/2013 CADEN SALAS, EMORY Olivera 311 depression 06/22/2013 CALDERÓN DO, STELLA K 786.09 DYSPNEA 06/22/2013 KRISTA OH MD 786.09 DYSPNEA 06/22/2013 ADRIANO SALAS, KRISTA Monteiro 786.09 DYSPNEA 06/22/2013 CADEN SALAS, EMORY Olivera 786.09 DYSPNEA 06/22/2013 CADEN SALAS, EMORY Olivera 786.09 DYSPNEA 06/22/2013 EMORY NEGRETE MD 786.09 DYSPNEA 06/22/2013 JEAN-PIERRE PARRISH MD 786.09 DYSPNEA 06/22/2013 CADEN SALAS, EMORY Olivera 786.09 DYSPNEA 06/22/2013 JEAN-PIERRE PARRISH MD 786.09 DYSPNEA 06/22/2013 JEAN-PIERRE PARRISH MD 786.09 DYSPNEA 06/22/2013 CADEN SALAS, EMORY Olivera 786.09 DYSPNEA 06/22/2013 JEA-NPIERRE PARRISH MD 786.09 DYSPNEA 06/22/2013 CADEN SALAS, EMORY Olivera 786.09 DYSPNEA 06/23/2013 KRISTA OH MD 702.19 SEBORRHEIC KERATOSIS 06/23/2013 KRISTA OH MD 702.19 SEBORRHEIC KERATOSIS 06/23/2013 EMORY NEGRETE MD 702.19 SEBORRHEIC KERATOSIS 06/23/2013 EMORY NEGRETE MD 702.19 SEBORRHEIC KERATOSIS 06/23/2013 EMORY NEGRETE MD 702.19 SEBORRHEIC KERATOSIS 06/23/2013 JEAN-PIERRE PARRISH MD 702.19 SEBORRHEIC KERATOSIS 06/23/2013 EMORY NEGRETE MD 702.19 SEBORRHEIC KERATOSIS 06/23/2013 JEAN-PIERRE PARRISH MD 702.19 SEBORRHEIC KERATOSIS 06/23/2013 JEAN-PIERRE PARRISH MD 702.19 SEBORRHEIC KERATOSIS 06/23/2013 CADEN SALAS, EMORY Olivera 702.19 SEBORRHEIC KERATOSIS 06/23/2013 JEAN-PIERRE PARRISH MD 702.19 SEBORRHEIC KERATOSIS 06/23/2013 CADEN SALAS, EMORY Olivera 702.19 SEBORRHEIC KERATOSIS 07/29/2013 EMORY NEGRETE MD 401.9 HYPERTENSION, UNSPECIFIED ESSENTIAL 07/29/2013 CADEN SALAS, EMORY Olivera 701.9 SKIN TAG 07/29/2013 CADEN SALAS, EMORY Olivera 401.9 HYPERTENSION, UNSPECIFIED ESSENTIAL 07/29/2013 CADEN SALAS, EMORY Olivera 701.9 SKIN TAG 07/29/2013 EMORY NEGRETE MD 401.9 HYPERTENSION, UNSPECIFIED ESSENTIAL 07/29/2013 CADEN SALAS, EMORY Olivera 701.9 SKIN TAG 07/29/2013 JEAN-PIERRE PARRISH MD 401.9 HYPERTENSION, UNSPECIFIED ESSENTIAL 07/29/2013 JEAN-PIERRE PARRISH MD 701.9 SKIN TAG 07/29/2013 EMORY NEGRETE MD 401.9 HYPERTENSION, UNSPECIFIED ESSENTIAL 07/29/2013 EMORY NEGRETE MD 701.9 SKIN TAG 07/29/2013 JEAN-PIERRE PARRISH MD 401.9 HYPERTENSION, UNSPECIFIED ESSENTIAL 07/29/2013 JEAN-PIERRE PARRISH MD 701.9 SKIN TAG 07/29/2013 JEAN-PIERRE PARRISH MD 401.9 HYPERTENSION, UNSPECIFIED ESSENTIAL 07/29/2013 JEAN-PIERRE PARRISH MD 701.9 SKIN TAG 07/29/2013 EMORY NEGRETE MD 401.9 HYPERTENSION, UNSPECIFIED ESSENTIAL 07/29/2013 EMORY NEGRETE MD 701.9 SKIN TAG 07/29/2013 EJAN-PIERRE PARRISH MD 401.9 HYPERTENSION, UNSPECIFIED ESSENTIAL 07/29/2013 JEAN-PIERRE PARRISH MD 701.9 SKIN TAG 07/29/2013 EMORY NEGRETE MD 401.9 HYPERTENSION, UNSPECIFIED ESSENTIAL 07/29/2013 EMORY NEGRETE MD 701.9 SKIN TAG 10/25/2013 RADHA SALAS FACC, ALI FACP CCDS Ot 250.00 DIAB EMELY WO COMPL, TYPE II OR UNSPEC TY 10/25/2013 RADHA SALAS FACC, ALI FACP CCDS Ot 272.4 HYPERLIPIDEMIA NEC/NOS 10/25/2013 RADHA SALAS [facility], ALI FACP CCDS Ot 278.00 OBESITY, NOS 10/25/2013 RADHA HUGHES, ALI FACP CCDS Ot 305.1 TOBACCO USE DISORDER 10/25/2013 RADHA SALAS FACC, ALI FACP CCDS Ot 401.9 HYPERTENSION NOS 10/25/2013 RADHA SALAS FAC, ALI FACP CCDS Ot 414.01 CORONARY ATHEROSCLEROSIS OF [place] CORON 10/25/2013 RADHA SALAS FACC, ALI FACP CCDS Ot 786.59 CHEST PAIN NEC 10/25/2013 RADHA SALAS FACC, RAUL FACP CCDS Ot V45.82 PERCUTANEOUS TRANSLUM CORON ANGIOPLASTY 10/25/2013 RADHA SALAS FACC, RAUL FACP CCDS Ot V58.69 OTH MED,LT,CURRENT USE 10/25/2013 RADHA SALAS FACC, ALI FACP CCDS Ot V85.31 BODY MASS INDEX 31.0-31.9, ADULT 11/24/2013 JEAN-PIERRE PARRISH MD 272.1 HYPERTRIGLYCERIDEMIA 11/24/2013 JEAN-PIERRE PARRISH MD 786.05 SHORTNESS OF BREATH 11/24/2013 EMORY NEGRETE MD 272.1 HYPERTRIGLYCERIDEMIA 11/24/2013 EMORY NEGRETE MD 786.05 SHORTNESS OF BREATH 11/24/2013 JEAN-PIERRE PARRISH MD 272.1 HYPERTRIGLYCERIDEMIA 11/24/2013 JEAN-PIERRE PARRISH MD 786.05 SHORTNESS OF BREATH 11/24/2013 JEAN-PIERRE PARRISH MD 272.1 HYPERTRIGLYCERIDEMIA 11/24/2013 JEAN-PIERRE PARRISH MD 786.05 SHORTNESS OF BREATH 11/24/2013 EMORY NEGRETE MD 272.1 HYPERTRIGLYCERIDEMIA 11/24/2013 EMORY NEGRETE MD 786.05 SHORTNESS OF BREATH 11/24/2013 JEAN-PIERRE PARRISH MD 272.1 HYPERTRIGLYCERIDEMIA 11/24/2013 JEAN-PIERRE PARRISH MD 786.05 SHORTNESS OF BREATH 11/24/2013 EMORY NEGRETE MD 272.1 HYPERTRIGLYCERIDEMIA 11/24/2013 EMORY NEGRETE MD 786.05 SHORTNESS OF BREATH 02/24/2014 EMORY NEGRETE MD 719.43 PAIN IN JOINT INVOLVING FOREARM 02/24/2014 EMORY NEGRETE MD 729.5 PAIN IN LIMB 02/24/2014 JEAN-PIERRE PARRISH MD 719.43 PAIN IN JOINT INVOLVING FOREARM 02/24/2014 JEAN-PIERRE PARRISH MD 729.5 PAIN IN LIMB 02/24/2014 JEAN-PIERRE PARRISH MD 719.43 PAIN IN JOINT INVOLVING FOREARM 02/24/2014 JEAN-PIERRE PARRISH MD 729.5 PAIN IN LIMB 02/24/2014 EMORY NEGRETE MD 719.43 PAIN IN JOINT INVOLVING FOREARM 02/24/2014 EMORY NEGRETE MD 729.5 PAIN IN LIMB 02/24/2014 JEAN-PIERRE PARRISH MD 719.43 PAIN IN JOINT INVOLVING FOREARM 02/24/2014 JEAN-PIERRE PARRISH MD 729.5 PAIN IN LIMB 02/24/2014 EMORY NEGRETE MD 719.43 PAIN IN JOINT INVOLVING FOREARM 02/24/2014 EMORY NEGRETE MD 729.5 PAIN IN LIMB 04/05/2014 JEAN-PIERRE PARRISH MD 786.2 COUGH 04/05/2014 JEAN-PIERRE PARRISH MD 786.2 COUGH 04/05/2014 EMORY NEGRETE MD 786.2 COUGH 04/05/2014 JEAN-PIERRE PARRISH MD 786.2 COUGH 04/05/2014 EMORY NEGRETE MD 786.2 COUGH 04/24/2014 JEAN-PIERRE PARRISH MD 793.11 SOLITARY PULMONARY NODULE 04/24/2014 JEAN-PIERRE PARRISH MD 793.11 SOLITARY PULMONARY NODULE 04/24/2014 EMORY NEGRETE MD 793.11 SOLITARY PULMONARY NODULE 04/24/2014 JEAN-PIERRE PARRISH MD 793.11 SOLITARY PULMONARY NODULE 04/24/2014 EMORY NEGRETE MD 793.11 SOLITARY PULMONARY NODULE 06/21/2014 JEAN-PIERRE PARRISH MD 682.2 CELLULITIS AND ABSCESS OF TRUNK 06/21/2014 JEAN-PIERRE PARRISH MD 705.83 HIDRADENITIS 06/21/2014 JEAN-PIERRE PARRISH MD V65.42 TOBACCO COUNSELING 06/21/2014 EMORY NEGRETE MD 682.2 CELLULITIS AND ABSCESS OF TRUNK 06/21/2014 EMORY NEGRETE MD 705.83 HIDRADENITIS 06/21/2014 EMORY NEGRETE MD V65.42 TOBACCO COUNSELING 08/04/2014 CADEN SALAS, EMORY Olivera 333.94 RESTLESS LEGS SYNDROME (RLS) 10/10/2015 Ot V68.01 10/10/2015 Ot V82.89 10/10/2015 RADHA SALAS FACC, ALI FACP CCDS Ot 401.9 10/10/2015 RADHA SALAS FACC, ALI FACP CCDS Ot 786.50 10/10/2015 RADHA SALAS FACC, ALI FACP CCDS Ot 272.4 10/10/2015 RADHA SALAS FACC, ALI FACP CCDS Ot 401.9 10/10/2015 RADHA SALAS FACC, ALI FACP CCDS Ot 786.50 10/10/2015 RADHA SALAS FACC, ALI FACP CCDS Ot V58.69 10/16/2015 Ot V68.01 10/16/2015 Ot V82.89 10/16/2015 RADHA SALAS FACC, ALI FACP CCDS Ot 401.9 10/16/2015 RADHA SALAS FACC, ALI FACP CCDS Ot 786.50 10/16/2015 RADHA SALAS FACC, ALI FACP CCDS Ot 272.4 10/16/2015 RADHA SALAS FACC, ALI FACP CCDS Ot 401.9 10/16/2015 RADHA SALAS FACC, ALI FACP CCDS Ot 786.50 10/16/2015 RADHA SALAS FACC, ALI FACP CCDS Ot V58.69 10/29/2015 ASHER SOSA DO Ot R06.02 10/29/2015 ASHER SOSA DO Ot R91.8 11/02/2015 RADHA HUGHESC, ALI FACP CCDS Ot E78.4 11/02/2015 RADHA HUGHESC, ALI FACP CCDS Ot I10 11/02/2015 RADHA HUGHESC, ALI FACP CCDS Ot I25.10 11/02/2015 RADHA HUGHESC, ALI FACP CCDS Ot I73.9 11/02/2015 RADHA HUGHESC, ALI FACP CCDS Ot R06.02 11/02/2015 RADHA SALAS FACC, ALI FACP CCDS Ot R07.89 11/13/2015 RADHA SALAS FACC, ALI FACP CCDS Ot E78.4 11/13/2015 RADHA HUGHESC, ALI FACP CCDS Ot I10 11/13/2015 RADHA SALAS FAC, ALI FACP CCDS Ot I25.10 11/13/2015 RADHA SALAS FAC, ALI FACP CCDS Ot I73.9 11/13/2015 RADHA SALAS FAC, ALI FACP CCDS Ot R06.02 11/13/2015 RADHA MD FAC, ALI FACP CCDS Ot R07.89 11/28/2015 Ot V68.01 11/28/2015 Ot V82.89 11/28/2015 RADHA MD FAC, ALI FACP CCDS Ot 401.9 11/28/2015 RADHA MD FAC, ALI FACP CCDS Ot 786.50 11/28/2015 RADHA MD FAC, ALI FACP CCDS Ot 272.4 11/28/2015 RADHA MD FAC, ALI FACP CCDS Ot 401.9 11/28/2015 RADHA MD FAC, ALI FACP CCDS Ot 786.50 11/28/2015 RADHA SALAS FAC, ALI FACP CCDS Ot V58.69 11/28/2015 RADHA SALAS [facility], ALI FACP CCDS Ot E78.4 11/28/2015 RADHA SALAS [facility], ALI FACP CCDS Ot I10 11/28/2015 RADHA SALAS [facility], ALI FACP CCDS Ot I25.10 11/28/2015 RADHA SALAS [facility], ALI FACP CCDS Ot I73.9 11/28/2015 RADHA SALAS [facility], ALI FACP CCDS Ot R06.02 11/28/2015 RADHA SALAS [facility], ALI FACP CCDS Ot R07.89 11/28/2015 RADHA SALAS [facility], ALI FACP CCDS Ot E78.4 11/28/2015 RADHA SALAS FAC, ALI FACP CCDS Ot I10 11/28/2015 RADHA SALAS FAC, ALI FACP CCDS Ot I25.10 11/28/2015 RADHA SALAS FAC, ALI FACP CCDS Ot I73.9 11/28/2015 RADHA SALAS FACC, ALI FACP CCDS Ot R06.02 11/28/2015 RADHA SALAS FACC, ALI FACP CCDS Ot R07.89 11/28/2015 ASHER SOSA DO Ot R06.02 11/28/2015 ASHER SOSA DO Ot R91.8 11/29/2015 ASHER SOSA DO Ot R06.02 12/14/2015 ASHER SOSA DO Ot R06.02 SHORTNESS OF BREATH 01/17/2016 ASHER SOSA DO Ot G47.33 OBSTRUCTIVE SLEEP APNEA (ADULT) (PEDIATR 04/02/2016 Ot V68.01 DISABILITY EXAMINATION 04/02/2016 Ot V82.89 SCREEN FOR OTH SPECIF CONDITIONS 04/02/2016 RADHA HUGHESC, ALI FACP CCDS Ot 401.9 HYPERTENSION NOS 04/02/2016 RADHA SALAS FACC, ALI FACP CCDS Ot 786.50 CHEST PAIN NOS 04/02/2016 RADHA SALAS FACC, ALI FACP CCDS Ot 272.4 HYPERLIPIDEMIA NEC/NOS 04/02/2016 RADHA SALAS FACDustin, ALI FACP CCDS Ot 401.9 HYPERTENSION NOS 04/02/2016 RADHA SALAS FACC, ALI FACP CCDS Ot 786.50 CHEST PAIN NOS 04/02/2016 RADHA SALAS FACC, ALI FACP CCDS Ot V58.69 OTH MED,LT,CURRENT USE 04/02/2016 RADHA SALAS FACC, ALI FACP CCDS Ot E78.4 OTHER HYPERLIPIDEMIA 04/02/2016 RADHA SALAS FACC, ALI FACP CCDS Ot I10 ESSENTIAL (PRIMARY) HYPERTENSION 04/02/2016 RADHA SALAS FACC, ALI FACP CCDS Ot I25.10 ATHSCL HEART DISEASE OF [place] CORONARY 04/02/2016 RADHA SALAS FACC, ALI FACP CCDS Ot I73.9 PERIPHERAL VASCULAR DISEASE, UNSPECIFIED 04/02/2016 RADHA SALAS FACC, ALI FACP CCDS Ot R06.02 SHORTNESS OF BREATH 04/02/2016 RADHA SALAS FACC, ALI FACP CCDS Ot R07.89 OTHER CHEST PAIN 04/02/2016 RADHA SALAS FACC, ALI FACP CCDS Ot E78.4 OTHER HYPERLIPIDEMIA 04/02/2016 RADHA SALAS FACC, ALI FACP CCDS Ot I10 ESSENTIAL (PRIMARY) HYPERTENSION 04/02/2016 RADHA SALAS FACC, ALI FACP CCDS Ot I25.10 ATHSCL HEART DISEASE OF [place] CORONARY 04/02/2016 RADHA SALAS FACC, ALI FACP CCDS Ot I73.9 PERIPHERAL VASCULAR DISEASE, UNSPECIFIED 04/02/2016 RADHA SALAS FACC, ALI FACP CCDS Ot R06.02 SHORTNESS OF BREATH 04/02/2016 RADHA SALAS FACC, ALI FACP CCDS Ot R07.89 OTHER CHEST PAIN 04/02/2016 ASHER SOSA DO Ot R06.02 SHORTNESS OF BREATH 04/02/2016 ASHER SOSA DO Ot R91.8 OTHER NONSPECIFIC ABNORMAL FINDING OF [place] 04/02/2016 ASHER SOSA DO Ot R06.02 SHORTNESS OF BREATH 06/04/2016 Ot V68.01 DISABILITY EXAMINATION 06/04/2016 Ot V82.89 SCREEN FOR OTH SPECIF CONDITIONS 06/04/2016 RADHA SALAS FACC, ALI FACP CCDS Ot 401.9 HYPERTENSION NOS 06/04/2016 RADHA SALAS FACC, ALI FACP CCDS Ot 786.50 CHEST PAIN NOS 06/04/2016 RADHA SALAS FACC, ALI FACP CCDS Ot 272.4 HYPERLIPIDEMIA NEC/NOS 06/04/2016 RADHA SALAS FACC, ALI FACP CCDS Ot 401.9 HYPERTENSION NOS 06/04/2016 RADHA SALAS FACC, ALI FACP CCDS Ot 786.50 CHEST PAIN NOS 06/04/2016 RADHA SALAS FACC, ALI FACP CCDS Ot V58.69 OTH MED,LT,CURRENT USE 06/04/2016 RADHA SALAS FACC, ALI FACP CCDS Ot E78.4 OTHER HYPERLIPIDEMIA 06/04/2016 RADHA SALAS FACC, ALI FACP CCDS Ot I10 ESSENTIAL (PRIMARY) HYPERTENSION 06/04/2016 RADHA SALAS FACC, ALI FACP CCDS Ot I25.10 ATHSCL HEART DISEASE OF [place] CORONARY 06/04/2016 RADHA SALAS FACC, ALI FACP CCDS Ot I73.9 PERIPHERAL VASCULAR DISEASE, UNSPECIFIED 06/04/2016 RADHA SALAS FACC, ALI FACP CCDS Ot R06.02 SHORTNESS OF BREATH 06/04/2016 RADHA SALAS FACC, ALI FACP CCDS Ot R07.89 OTHER CHEST PAIN 06/04/2016 RADHA SALAS FACC, ALI FACP CCDS Ot E78.4 OTHER HYPERLIPIDEMIA 06/04/2016 RADHA SALAS FACC, ALI FACP CCDS Ot I10 ESSENTIAL (PRIMARY) HYPERTENSION 06/04/2016 RADHA SALAS FACC, ALI FACP CCDS Ot I25.10 ATHSCL HEART DISEASE OF [place] CORONARY 06/04/2016 RADHA SALAS FACC, ALI FACP CCDS Ot I73.9 PERIPHERAL VASCULAR DISEASE, UNSPECIFIED 06/04/2016 RADHA SALAS FACC, ALI FACP CCDS Ot R06.02 SHORTNESS OF BREATH 06/04/2016 RADHA SALAS FACC, ALI FACP CCDS Ot R07.89 OTHER CHEST PAIN 06/04/2016 IAN CODY ASHER M Ot R06.02 SHORTNESS OF BREATH 06/04/2016 IAN CODY ASHER M Ot R91.8 OTHER NONSPECIFIC ABNORMAL FINDING OF [place] 06/04/2016 IAN DO ASHER M Ot R06.02 SHORTNESS OF BREATH 06/04/2016 RADHA SALAS FACC, ALI FACP CCDS Ot 272.4 HYPERLIPIDEMIA NEC/NOS 06/04/2016 RADHA SALAS FACC, ALI FACP CCDS Ot 401.9 HYPERTENSION NOS 06/04/2016 RADHA SALAS FACC, ALI FACP CCDS Ot 786.50 CHEST PAIN NOS 06/04/2016 RADHA SALAS FACC, ALI FACP CCDS Ot V58.69 OTH MED,LT,CURRENT USE 06/04/2016 RADHA SALAS FACC, ALI FACP CCDS Ot 401.9 HYPERTENSION NOS 06/04/2016 RADHA HUGHESC, ALI FACP CCDS Ot 786.50 CHEST PAIN NOS 11/21/2016 Ot V68.01 DISABILITY EXAMINATION 11/21/2016 Ot V82.89 SCREEN FOR OTH SPECIF CONDITIONS 11/21/2016 RADHA HUGHESC, ALI FACP CCDS Ot 401.9 HYPERTENSION NOS 11/21/2016 RADHA HUGHESC, ALI FACP CCDS Ot 786.50 CHEST PAIN NOS 11/21/2016 RADHA SALAS FACC, ALI FACP CCDS Ot 272.4 HYPERLIPIDEMIA NEC/NOS 11/21/2016 RADHA SALAS FACC, ALI FACP CCDS Ot 401.9 HYPERTENSION NOS 11/21/2016 RADHA HUGHESC, ALI FACP CCDS Ot 786.50 CHEST PAIN NOS 11/21/2016 RADHA HUGHESC, ALI FACP CCDS Ot V58.69 OTH MED,LT,CURRENT USE 11/21/2016 RADHA SALAS FACC, ALI FACP CCDS Ot E78.4 OTHER HYPERLIPIDEMIA 11/21/2016 RADHA MD FACC, ALI FACP CCDS Ot I10 ESSENTIAL (PRIMARY) HYPERTENSION 11/21/2016 RADHA SALAS FAC, ALI FACP CCDS Ot I25.10 ATHSCL HEART DISEASE OF [place] CORONARY 11/21/2016 RADHA SALAS [facility], ALI FACP CCDS Ot I73.9 PERIPHERAL VASCULAR DISEASE, UNSPECIFIED 11/21/2016 RADHA SALAS FAC, ALI FACP CCDS Ot R06.02 SHORTNESS OF BREATH 11/21/2016 RADHA SALAS [facility], ALI FACP CCDS Ot R07.89 OTHER CHEST PAIN 11/21/2016 RADHA SALAS [facility], ALI FACP CCDS Ot E78.4 OTHER HYPERLIPIDEMIA 11/21/2016 RADHA SALAS [facility], ALI FACP CCDS Ot I10 ESSENTIAL (PRIMARY) HYPERTENSION 11/21/2016 RADHA SALAS [facility], ALI FACP CCDS Ot I25.10 ATHSCL HEART DISEASE OF [place] CORONARY 11/21/2016 RADHA SALAS [facility], ALI FACP CCDS Ot I73.9 PERIPHERAL VASCULAR DISEASE, UNSPECIFIED 11/21/2016 RADHA SALAS [facility], ALI FACP CCDS Ot R06.02 SHORTNESS OF BREATH 11/21/2016 RADHA SALAS [facility], ALI FACP CCDS Ot R07.89 OTHER CHEST PAIN 11/21/2016 ASHER SOSA DO Ot R06.02 SHORTNESS OF BREATH 11/21/2016 ASHER SOSA DO Ot R91.8 OTHER NONSPECIFIC ABNORMAL FINDING OF [place] 11/21/2016 ASHER SOSA DO Ot R06.02 SHORTNESS OF BREATH 11/24/2016 URSZULA RODRIGUES RN PRODUCTION Ot 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 11/24/2016 URSZULA RODRIGUES RN PRODUCTION Ot R06.02 SHORTNESS OF BREATH 11/24/2016 URSZULA RODRIGUES RN PRODUCTION Ot R93.8 ABNORMAL FINDINGS ON DIAGNOSTIC IMAGING 03/27/2017 URSZULA RODRIGUES RN PRODUCTION Ot 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 03/27/2017 URSZULA RODRIGUES APRN Ot R06.02 SHORTNESS OF BREATH 03/27/2017 URSZULA RODRIGUES RN PRODUCTION Ot R93.8 ABNORMAL FINDINGS ON DIAGNOSTIC IMAGING 04/16/2017 Ot V68.01 DISABILITY EXAMINATION 04/16/2017 Ot V82.89 SCREEN FOR OTH SPECIF CONDITIONS 04/16/2017 RADHA SALAS FACC, ALI FACP CCDS Ot 401.9 HYPERTENSION NOS 04/16/2017 RADHA SALAS FACC, ALI FACP CCDS Ot 786.50 CHEST PAIN NOS 04/16/2017 RADHA SALAS FACC, ALI FACP CCDS Ot 272.4 HYPERLIPIDEMIA NEC/NOS 04/16/2017 RADHA MD FACC, ALI FACP CCDS Ot 401.9 HYPERTENSION NOS 04/16/2017 RADHA SALAS FACC, ALI FACP CCDS Ot 786.50 CHEST PAIN NOS 04/16/2017 RADHA SALAS [facility], ALI FACP CCDS Ot V58.69 OT MED,LT,CURRENT USE 04/16/2017 RADHA SALAS FACC, ALI FACP CCDS Ot E78.4 OTHER HYPERLIPIDEMIA 04/16/2017 RADHA SALAS FACC, ALI FACP CCDS Ot I10 ESSENTIAL (PRIMARY) HYPERTENSION 04/16/2017 RADHA SALAS FACC, ALI FACP CCDS Ot I25.10 ATHSCL HEART DISEASE OF [place] CORONARY 04/16/2017 RADHA SALAS FACC, ALI FACP CCDS Ot I73.9 PERIPHERAL VASCULAR DISEASE, UNSPECIFIED 04/16/2017 RADHA SALAS [facility], ALI FACP CCDS Ot R06.02 SHORTNESS OF BREATH 04/16/2017 RADHA SALAS [facility], ALI FACP CCDS Ot R07.89 OTHER CHEST PAIN 04/16/2017 RADHA SALAS [facility], ALI FACP CCDS Ot E78.4 OTHER HYPERLIPIDEMIA 04/16/2017 RADHA SALAS FAC, ALI FACP CCDS Ot I10 ESSENTIAL (PRIMARY) HYPERTENSION 04/16/2017 RADHA SALAS [facility], ALI FACP CCDS Ot I25.10 ATHSCL HEART DISEASE OF [place] CORONARY 04/16/2017 RADHA SALAS FAC, ALI FACP CCDS Ot I73.9 PERIPHERAL VASCULAR DISEASE, UNSPECIFIED 04/16/2017 RADHA SALAS FAC, ALI FACP CCDS Ot R06.02 SHORTNESS OF BREATH 04/16/2017 RADHA SALAS FAC, ALI FACP CCDS Ot R07.89 OTHER CHEST PAIN 04/16/2017 ASHER SOSA DO Ot R06.02 SHORTNESS OF BREATH 04/16/2017 ASHER SOSA DO Ot R91.8 OTHER NONSPECIFIC ABNORMAL FINDING OF [place] 04/16/2017 ASHER SOSA DO Ot R06.02 SHORTNESS OF BREATH 04/16/2017 RAVIURSZULA PEMBERTON RN PRODUCTION Ot 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 04/16/2017 RAVIURSZULA PEMBERTON RN PRODUCTION Ot R06.02 SHORTNESS OF BREATH 04/16/2017 RAVIURSZULA PEMBERTON RN PRODUCTION Ot R93.8 ABNORMAL FINDINGS ON DIAGNOSTIC IMAGING 04/17/2017 RAVIURSZULA PEMBERTON RN PRODUCTION Ot 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 04/17/2017 RAVIURSZULA PEMBERTON RN PRODUCTION Ot R06.02 SHORTNESS OF BREATH 04/17/2017 RAVIURSZULA PEMBERTON RN PRODUCTION Ot R93.8 ABNORMAL FINDINGS ON DIAGNOSTIC IMAGING 04/30/2017 RAVIURSZULA PEMBERTON RN PRODUCTION Ot 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 04/30/2017 RAVIURSZULA PEMBERTON RN PRODUCTION Ot R06.02 SHORTNESS OF BREATH 04/30/2017 URSZULA RODRIGUES RN PRODUCTION Ot R93.8 ABNORMAL FINDINGS ON DIAGNOSTIC IMAGING 05/07/2017 Ot V68.01 DISABILITY EXAMINATION 05/07/2017 Ot V82.89 SCREEN FOR OTH SPECIF CONDITIONS 05/07/2017 RADHA SALAS FACC, RAUL FACP CCDS Ot 401.9 HYPERTENSION NOS 05/07/2017 RADHA SALAS FACC, ALI FACP CCDS Ot 786.50 CHEST PAIN NOS 05/07/2017 RADHA SALAS FACC, ALI FACP CCDS Ot 272.4 HYPERLIPIDEMIA NEC/NOS 05/07/2017 RADHA SALAS FACC, ALI FACP CCDS Ot 401.9 HYPERTENSION NOS 05/07/2017 RADHA SALAS FACC, ALI FACP CCDS Ot 786.50 CHEST PAIN NOS 05/07/2017 RADHA SALAS FACC, RAUL FACP CCDS Ot V58.69 OTH MED,LT,CURRENT USE 05/07/2017 RADHA SALAS FACC, ALI FACP CCDS Ot E78.4 OTHER HYPERLIPIDEMIA 05/07/2017 RADHA SALAS FACC, ALI FACP CCDS Ot I10 ESSENTIAL (PRIMARY) HYPERTENSION 05/07/2017 RADHA SALAS FACC, ALI FACP CCDS Ot I25.10 ATHSCL HEART DISEASE OF [place] CORONARY 05/07/2017 RADHA SALAS FACC, ALI FACP CCDS Ot I73.9 PERIPHERAL VASCULAR DISEASE, UNSPECIFIED 05/07/2017 RADHA SALAS FACC, ALI FACP CCDS Ot R06.02 SHORTNESS OF BREATH 05/07/2017 RADHA SALAS FACC, ALI FACP CCDS Ot R07.89 OTHER CHEST PAIN 05/07/2017 RADHA SALAS FACC, ALI FACP CCDS Ot E78.4 OTHER HYPERLIPIDEMIA 05/07/2017 RADHA SALAS FACC, ALI FACP CCDS Ot I10 ESSENTIAL (PRIMARY) HYPERTENSION 05/07/2017 RADHA SALAS FACC, ALI FACP CCDS Ot I25.10 ATHSCL HEART DISEASE OF [place] CORONARY 05/07/2017 RADHA SALAS FACC, ALI FACP CCDS Ot I73.9 PERIPHERAL VASCULAR DISEASE, UNSPECIFIED 05/07/2017 RADHA SALAS FACC, ALI FACP CCDS Ot R06.02 SHORTNESS OF BREATH 05/07/2017 RADHA SALAS FACC, RAUL FACP CCDS Ot R07.89 OTHER CHEST PAIN 05/07/2017 ASHER SOSA DO Ot R06.02 SHORTNESS OF BREATH 05/07/2017 ASHER SOSA DO Ot R91.8 OTHER NONSPECIFIC ABNORMAL FINDING OF [place] 05/07/2017 ASHER SOSA DO Ot R06.02 SHORTNESS OF BREATH 05/07/2017 URSZULA RODRIGUES APRN Ot 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 05/07/2017 URSZULA RODRIGUES APRN Ot R06.02 SHORTNESS OF BREATH 05/07/2017 URSZULA RODRIGUES APRN Ot R93.8 ABNORMAL FINDINGS ON DIAGNOSTIC IMAGING 06/23/2017 Ot V68.01 DISABILITY EXAMINATION 06/23/2017 Ot V82.89 SCREEN FOR OTH SPECIF CONDITIONS 06/23/2017 RADHA SALAS FACC, RAUL FACP CCDS Ot 401.9 HYPERTENSION NOS 06/23/2017 RADHA SALAS FACC, ALI FACP CCDS Ot 786.50 CHEST PAIN NOS 06/23/2017 RADHA SALAS FACC, ALI FACP CCDS Ot 272.4 HYPERLIPIDEMIA NEC/NOS 06/23/2017 RADHA SALAS FACC, ALI FACP CCDS Ot 401.9 HYPERTENSION NOS 06/23/2017 RADHA SALAS FACC, ALI FACP CCDS Ot 786.50 CHEST PAIN NOS 06/23/2017 RADHA SALAS FACC, ALI FACP CCDS Ot V58.69 OTH MED,LT,CURRENT USE 06/23/2017 RADHA SALAS FACC, ALI FACP CCDS Ot E78.4 OTHER HYPERLIPIDEMIA 06/23/2017 RADHA SALAS [facility], ALI FACP CCDS Ot I10 ESSENTIAL (PRIMARY) HYPERTENSION 06/23/2017 RADHA SALAS [facility], ALI FACP CCDS Ot I25.10 ATHSCL HEART DISEASE OF [place] CORONARY 06/23/2017 RADHA SALAS [facility], ALI FACP CCDS Ot I73.9 PERIPHERAL VASCULAR DISEASE, UNSPECIFIED 06/23/2017 RADHA SALAS [facility], ALI FACP CCDS Ot R06.02 SHORTNESS OF BREATH 06/23/2017 RADHA SALAS [facility], ALI FACP CCDS Ot R07.89 OTHER CHEST PAIN 06/23/2017 RADHA SALAS [facility], ALI FACP CCDS Ot E78.4 OTHER HYPERLIPIDEMIA 06/23/2017 RADHA SALAS [facility], ALI FACP CCDS Ot I10 ESSENTIAL (PRIMARY) HYPERTENSION 06/23/2017 RADHA SALAS [facility], ALI FACP CCDS Ot I25.10 ATHSCL HEART DISEASE OF [place] CORONARY 06/23/2017 RADHA SALAS [facility], ALI FACP CCDS Ot I73.9 PERIPHERAL VASCULAR DISEASE, UNSPECIFIED 06/23/2017 RADHA SALAS [facility], ALI FACP CCDS Ot R06.02 SHORTNESS OF BREATH 06/23/2017 RADHA SALAS [facility], ALI FACP CCDS Ot R07.89 OTHER CHEST PAIN 06/23/2017 ASHER SOSA DO Ot R06.02 SHORTNESS OF BREATH 06/23/2017 ASHER SOSA DO Ot R91.8 OTHER NONSPECIFIC ABNORMAL FINDING OF [place] 06/23/2017 ASHER SOSA DO Ot R06.02 SHORTNESS OF BREATH 06/23/2017 URSZULA RODRIGUES RN PRODUCTION Ot 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 06/23/2017 URSZULA RODRIGUES RN PRODUCTION Ot R06.02 SHORTNESS OF BREATH 06/23/2017 URSZULA RODRIGUES RN PRODUCTION Ot R93.8 ABNORMAL FINDINGS ON DIAGNOSTIC IMAGING 07/23/2017 ISAAC HARMON [employer] Ot E78.4 OTHER HYPERLIPIDEMIA 07/23/2017 ISAAC HARMON [employer] Ot I11.0 HYPERTENSIVE HEART DISEASE WITH HEART FA 07/23/2017 ISAAC HARMON [employer] Ot I25.10 ATHSCL HEART DISEASE OF [place] CORONARY 07/23/2017 ISAAC HARMON [employer] Ot I51.7 CARDIOMEGALY 07/23/2017 BAIMAISAAC L [employer] Ot R06.02 SHORTNESS OF BREATH 07/24/2017 BAIISAAC MATUTE L [employer] Ot E78.4 OTHER HYPERLIPIDEMIA 07/24/2017 BAIISAAC MATUTE L [employer] Ot I11.0 HYPERTENSIVE HEART DISEASE WITH HEART FA 07/24/2017 BAIMAISAAC L [employer] Ot I25.10 ATHSCL HEART DISEASE OF [place] CORONARY 07/24/2017 BAIISAAC MATUTE L [employer] Ot I51.7 CARDIOMEGALY 07/24/2017 BAIISAAC MATUTE [employer] Ot R06.02 SHORTNESS OF BREATH 09/25/2017 Ot V68.01 DISABILITY EXAMINATION 09/25/2017 Ot V82.89 SCREEN FOR OTH SPECIF CONDITIONS 09/25/2017 RADHA SALAS FACC, RAUL FACP CCDS Ot 401.9 HYPERTENSION NOS 09/25/2017 RADHA SALAS FACC, ALI FACP CCDS Ot 786.50 CHEST PAIN NOS 09/25/2017 RADHA SALAS FACC, ALI FACP CCDS Ot 272.4 HYPERLIPIDEMIA NEC/NOS 09/25/2017 RADHA SALAS FACC, ALI FACP CCDS Ot 401.9 HYPERTENSION NOS 09/25/2017 RADHA SALAS FACC, ALI FACP CCDS Ot 786.50 CHEST PAIN NOS 09/25/2017 RADHA SALAS FACC, ALI FACP CCDS Ot V58.69 OTH MED,LT,CURRENT USE 09/25/2017 RADHA SALAS FACC, ALI FACP CCDS Ot E78.4 OTHER HYPERLIPIDEMIA 09/25/2017 RADHA SALAS FACC, ALI FACP CCDS Ot I10 ESSENTIAL (PRIMARY) HYPERTENSION 09/25/2017 RADHA SALAS FACC, ALI FACP CCDS Ot I25.10 ATHSCL HEART DISEASE OF [place] CORONARY 09/25/2017 RADHA SALAS FACC, RAUL FACP CCDS Ot I73.9 PERIPHERAL VASCULAR DISEASE, UNSPECIFIED 09/25/2017 RADHA SALAS FACC, ALI FACP CCDS Ot R06.02 SHORTNESS OF BREATH 09/25/2017 RADHA SALAS FACC, ALI FACP CCDS Ot R07.89 OTHER CHEST PAIN 09/25/2017 RADHA SALAS FACC, ALI FACP CCDS Ot E78.4 OTHER HYPERLIPIDEMIA 09/25/2017 RADHA SALAS FACC, RAUL FACP CCDS Ot I10 ESSENTIAL (PRIMARY) HYPERTENSION 09/25/2017 RADHA SALAS FACC, RAUL FACP CCDS Ot I25.10 ATHSCL HEART DISEASE OF [place] CORONARY 09/25/2017 RADHA SALAS FACC, ALI FACP CCDS Ot I73.9 PERIPHERAL VASCULAR DISEASE, UNSPECIFIED 09/25/2017 RADHA SALAS FACC, RAUL FACP CCDS Ot R06.02 SHORTNESS OF BREATH 09/25/2017 RADHA SALAS FACC, RAUL FACP CCDS Ot R07.89 OTHER CHEST PAIN 09/25/2017 ASHER SOSA DO M Ot R06.02 SHORTNESS OF BREATH 09/25/2017 ASHER SOSA DO M Ot R91.8 OTHER NONSPECIFIC ABNORMAL FINDING OF [place] 09/25/2017 ASHER SOSA DO M Ot R06.02 SHORTNESS OF BREATH 09/25/2017 URSZULA RODRIGUES APRN Ot 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 09/25/2017 URSZULA RODRIGUES APRN Ot R06.02 SHORTNESS OF BREATH 09/25/2017 URSZULA RODRIGUES APRN Ot R93.8 ABNORMAL FINDINGS ON DIAGNOSTIC IMAGING 09/25/2017 ISAAC HARMON [employer] Ot E78.4 OTHER HYPERLIPIDEMIA 09/25/2017 ISAAC HARMON [employer] Ot I11.0 HYPERTENSIVE HEART DISEASE WITH HEART FA 09/25/2017 ISAAC HARMON L [employer] Ot I25.10 ATHSCL HEART DISEASE OF [place] CORONARY 09/25/2017 ISAAC HARMON [employer] Ot I51.7 CARDIOMEGALY 09/25/2017 ISAAC HARMON [employer] Ot R06.02 SHORTNESS OF BREATH 09/25/2017 Ot V68.01 DISABILITY EXAMINATION 09/25/2017 Ot V82.89 SCREEN FOR OTH SPECIF CONDITIONS 09/25/2017 RADHA SALAS FACC, RAUL FACP CCDS Ot 401.9 HYPERTENSION NOS 09/25/2017 RADHA SALAS FACC, RAUL FACP CCDS Ot 786.50 CHEST PAIN NOS 09/25/2017 RADHA SALAS FACC, RAUL FACP CCDS Ot 272.4 HYPERLIPIDEMIA NEC/NOS 09/25/2017 RADHA SALAS FACC, RAUL FACP CCDS Ot 401.9 HYPERTENSION NOS 09/25/2017 RADHA SALAS FACC, ALI FACP CCDS Ot 786.50 CHEST PAIN NOS 09/25/2017 RADHA SALAS FACC, ALI FACP CCDS Ot V58.69 OTH MED,LT,CURRENT USE 09/25/2017 RADHA SALAS [facility], ALI FACP CCDS Ot E78.4 OTHER HYPERLIPIDEMIA 09/25/2017 RADHA SALAS FACC, ALI FACP CCDS Ot I10 ESSENTIAL (PRIMARY) HYPERTENSION 09/25/2017 RADHA SALAS [facility], ALI FACP CCDS Ot I25.10 ATHSCL HEART DISEASE OF [place] CORONARY 09/25/2017 RADHA SALAS [facility], ALI FACP CCDS Ot I73.9 PERIPHERAL VASCULAR DISEASE, UNSPECIFIED 09/25/2017 RADHA SALAS [facility], ALI FACP CCDS Ot R06.02 SHORTNESS OF BREATH 09/25/2017 RADHA SALAS [facility], ALI FACP CCDS Ot R07.89 OTHER CHEST PAIN 09/25/2017 RADHA SALAS [facility], ALI FACP CCDS Ot E78.4 OTHER HYPERLIPIDEMIA 09/25/2017 RADHA SALAS [facility], ALI FACP CCDS Ot I10 ESSENTIAL (PRIMARY) HYPERTENSION 09/25/2017 RADHA SALAS [facility], ALI FACP CCDS Ot I25.10 ATHSCL HEART DISEASE OF [place] CORONARY 09/25/2017 RADHA SALAS [facility], ALI FACP CCDS Ot I73.9 PERIPHERAL VASCULAR DISEASE, UNSPECIFIED 09/25/2017 RADHA SALAS [facility], ALI FACP CCDS Ot R06.02 SHORTNESS OF BREATH 09/25/2017 RADHA SALAS [facility], ALI FACP CCDS Ot R07.89 OTHER CHEST PAIN 09/25/2017 ASHER SOSA DO Ot R06.02 SHORTNESS OF BREATH 09/25/2017 ASHER SOSA DO Ot R91.8 OTHER NONSPECIFIC ABNORMAL FINDING OF [place] 09/25/2017 ASHER SOSA DO Ot R06.02 SHORTNESS OF BREATH 09/25/2017 URSZULA RODRIGUES APRN Ot 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 09/25/2017 URSZULA RODRIGUES APRN Ot R06.02 SHORTNESS OF BREATH 09/25/2017 URSZULA RDORIGUES APRN Ot R93.8 ABNORMAL FINDINGS ON DIAGNOSTIC IMAGING 09/25/2017 ISAAC HARMON Ot E78.4 OTHER HYPERLIPIDEMIA 09/25/2017 ISAAC HARMON [employer] Ot I11.0 HYPERTENSIVE HEART DISEASE WITH HEART FA 09/25/2017 ISAAC HARMON [employer] Ot I25.10 ATHSCL HEART DISEASE OF [place] CORONARY 09/25/2017 ISAAC HARMON [employer] Ot I51.7 CARDIOMEGALY 09/25/2017 ISAAC HARMON [employer] Ot R06.02 SHORTNESS OF BREATH 01/26/2018 Ot V68.01 DISABILITY EXAMINATION 01/26/2018 Ot V82.89 SCREEN FOR OTH SPECIF CONDITIONS 01/26/2018 RADHA SALAS FACC, ALI FACP CCDS Ot 401.9 HYPERTENSION NOS 01/26/2018 RADHA SALAS FACC, ALI FACP CCDS Ot 786.50 CHEST PAIN NOS 01/26/2018 RADHA SALAS FACC, ALI FACP CCDS Ot 272.4 HYPERLIPIDEMIA NEC/NOS 01/26/2018 RADHA SALAS FACC, ALI FACP CCDS Ot 401.9 HYPERTENSION NOS 01/26/2018 RADHA SALAS FACC, ALI FACP CCDS Ot 786.50 CHEST PAIN NOS 01/26/2018 RADHA SALAS FACC, ALI FACP CCDS Ot V58.69 OTH MED,LT,CURRENT USE 01/26/2018 RADHA SALAS FACC, ALI FACP CCDS Ot E78.4 OTHER HYPERLIPIDEMIA 01/26/2018 RADHA SALAS FACC, ALI FACP CCDS Ot I10 ESSENTIAL (PRIMARY) HYPERTENSION 01/26/2018 RADHA SALAS FACC, ALI FACP CCDS Ot I25.10 ATHSCL HEART DISEASE OF [place] CORONARY 01/26/2018 RADHA SALAS FACC, ALI FACP CCDS Ot I73.9 PERIPHERAL VASCULAR DISEASE, UNSPECIFIED 01/26/2018 RADHA SALAS FACC, ALI FACP CCDS Ot R06.02 SHORTNESS OF BREATH 01/26/2018 RADHA SALAS FACC, ALI FACP CCDS Ot R07.89 OTHER CHEST PAIN 01/26/2018 RADHA SALAS FACC, ALI FACP CCDS Ot E78.4 OTHER HYPERLIPIDEMIA 01/26/2018 RADHA SALAS FACC, ALI FACP CCDS Ot I10 ESSENTIAL (PRIMARY) HYPERTENSION 01/26/2018 RADHA SALAS FACC, ALI FACP CCDS Ot I25.10 ATHSCL HEART DISEASE OF [place] CORONARY 01/26/2018 RADHA SALAS FACC, ALI FACP CCDS Ot I73.9 PERIPHERAL VASCULAR DISEASE, UNSPECIFIED 01/26/2018 RADHA SALAS FACC, ALI FACP CCDS Ot R06.02 SHORTNESS OF BREATH 01/26/2018 RADHA SALAS FACC, RAUL FACP CCDS Ot R07.89 OTHER CHEST PAIN 01/26/2018 IAN CODY ASHER M Ot R06.02 SHORTNESS OF BREATH 01/26/2018 IAN DO ASHER M Ot R91.8 OTHER NONSPECIFIC ABNORMAL FINDING OF [place] 01/26/2018 IANMIRANDA CODY ASHER M Ot R06.02 SHORTNESS OF BREATH 01/26/2018 URSZULA RODRIGUES RN PRODUCTION Ot 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 01/26/2018 URSZULA RODRIGUES RN PRODUCTION Ot R06.02 SHORTNESS OF BREATH 01/26/2018 URSZULA RODRIGUES RN PRODUCTION Ot R93.8 ABNORMAL FINDINGS ON DIAGNOSTIC IMAGING 01/26/2018 ISAAC HARMON [employer] Ot E78.4 OTHER HYPERLIPIDEMIA 01/26/2018 ISAAC HARMON L [employer] Ot I11.0 HYPERTENSIVE HEART DISEASE WITH HEART FA 01/26/2018 CAMILO HARMONHER L [employer] Ot I25.10 ATHSCL HEART DISEASE OF [place] CORONARY 01/26/2018 ISAAC HARMON [employer] Ot I51.7 CARDIOMEGALY 01/26/2018 ISAAC HARMON L [employer] Ot R06.02 SHORTNESS OF BREATH 01/26/2018 Ot V68.01 DISABILITY EXAMINATION 01/26/2018 Ot V82.89 SCREEN FOR OTH SPECIF CONDITIONS 01/26/2018 RADHA SALAS FACC, RAUL FACP CCDS Ot 401.9 HYPERTENSION NOS 01/26/2018 RADHA SALAS FACC, ALI FACP CCDS Ot 786.50 CHEST PAIN NOS 01/26/2018 RADHA SALAS FACC, ALI FACP CCDS Ot 272.4 HYPERLIPIDEMIA NEC/NOS 01/26/2018 RADHA SALAS FACC, ALI FACP CCDS Ot 401.9 HYPERTENSION NOS 01/26/2018 RADHA SALAS FACC, ALI FACP CCDS Ot 786.50 CHEST PAIN NOS 01/26/2018 RADHA SALAS FACC, ALI FACP CCDS Ot V58.69 OTH MED,LT,CURRENT USE 01/26/2018 RADHA SALAS FACC, ALI FACP CCDS Ot E78.4 OTHER HYPERLIPIDEMIA 01/26/2018 RADHA SALAS [facility], ALI FACP CCDS Ot I10 ESSENTIAL (PRIMARY) HYPERTENSION 01/26/2018 RADHA MD [facility], ALI FACP CCDS Ot I25.10 ATHSCL HEART DISEASE OF [place] CORONARY 01/26/2018 RADHA MD FAC, ALI FACP CCDS Ot I73.9 PERIPHERAL VASCULAR DISEASE, UNSPECIFIED 01/26/2018 RADHA MD FAC, ALI FACP CCDS Ot R06.02 SHORTNESS OF BREATH 01/26/2018 RADHA MD [facility], ALI FACP CCDS Ot R07.89 OTHER CHEST PAIN 01/26/2018 RADHA MD [facility], ALI FACP CCDS Ot E78.4 OTHER HYPERLIPIDEMIA 01/26/2018 RADHA SALAS [facility], ALI FACP CCDS Ot I10 ESSENTIAL (PRIMARY) HYPERTENSION 01/26/2018 RADHA SALAS [facility], ALI FACP CCDS Ot I25.10 ATHSCL HEART DISEASE OF [place] CORONARY 01/26/2018 RADHA SALAS [facility], ALI FACP CCDS Ot I73.9 PERIPHERAL VASCULAR DISEASE, UNSPECIFIED 01/26/2018 RADHA SALAS [facility], ALI FACP CCDS Ot R06.02 SHORTNESS OF BREATH 01/26/2018 RADHA SALAS [facility], ALI FACP CCDS Ot R07.89 OTHER CHEST PAIN 01/26/2018 ASHER SOSA DO Ot R06.02 SHORTNESS OF BREATH 01/26/2018 ASHER SOSA DO Ot R91.8 OTHER NONSPECIFIC ABNORMAL FINDING OF [place] 01/26/2018 ASHER SOSA DO Ot R06.02 SHORTNESS OF BREATH 01/26/2018 URSZULA RODRIGUES RN PRODUCTION Ot 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 01/26/2018 URSZULA RODRIGUES RN PRODUCTION Ot R06.02 SHORTNESS OF BREATH 01/26/2018 URSZULA RODRIGUES RN PRODUCTION Ot R93.8 ABNORMAL FINDINGS ON DIAGNOSTIC IMAGING 01/26/2018 ISAAC HARMON [employer] Ot E78.4 OTHER HYPERLIPIDEMIA 01/26/2018 ISAAC HARMON [employer] Ot I11.0 HYPERTENSIVE HEART DISEASE WITH HEART FA 01/26/2018 ISAAC HARMON L [employer] Ot I25.10 ATHSCL HEART DISEASE OF [place] CORONARY 01/26/2018 BAIMA, ISAAC L [employer] Ot I51.7 CARDIOMEGALY 01/26/2018 BAIMA, ISAAC L [employer] Ot R06.02 SHORTNESS OF BREATH 01/27/2018 BAIMA, ISAAC L [employer] Ot E78.5 HYPERLIPIDEMIA, UNSPECIFIED 01/27/2018 BAIMA, ISAAC L [employer] Ot G47.33 OBSTRUCTIVE SLEEP APNEA (ADULT) (PEDIATR 01/27/2018 BAIMA, ISAAC L [employer] Ot I10 ESSENTIAL (PRIMARY) HYPERTENSION 01/27/2018 BAIMA, ISAAC L [employer] Ot I25.10 ATHSCL HEART DISEASE OF [place] CORONARY 01/27/2018 BAIMA, ISAAC L [employer] Ot I35.1 NONRHEUMATIC AORTIC (VALVE) INSUFFICIENC 01/27/2018 BAIMA, ISAAC L [employer] Ot 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 01/27/2018 BAIMA, ISAAC L [employer] Ot R06.02 SHORTNESS OF BREATH 01/27/2018 BAIMA, ISAAC L [employer] Ot R07.89 OTHER CHEST PAIN 03/04/2018 BAIMA, ISAAC L [employer] Ot E78.5 HYPERLIPIDEMIA, UNSPECIFIED 03/04/2018 BAIMA, ISAAC L [employer] Ot G47.33 OBSTRUCTIVE SLEEP APNEA (ADULT) (PEDIATR 03/04/2018 BAIMA, ISAAC L [employer] Ot I10 ESSENTIAL (PRIMARY) HYPERTENSION 03/04/2018 BAIMA, ISAAC L [employer] Ot I25.10 ATHSCL HEART DISEASE OF [place] CORONARY 03/04/2018 BAIMA, ISAAC L [employer] Ot I35.1 NONRHEUMATIC AORTIC (VALVE) INSUFFICIENC 03/04/2018 BAIMA, ISAAC L [employer] Ot 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 03/04/2018 BAIMA, ISAAC L [employer] Ot R06.02 SHORTNESS OF BREATH 03/04/2018 BAIMA, ISAAC L [employer] Ot R07.89 OTHER CHEST PAIN 01/31/2019 RADHA SALAS FACC, RAUL HUGHESP CCDS Ot E78.4 OTHER HYPERLIPIDEMIA 01/31/2019 RADHA SALAS FACC, RAUL FACP CCDS Ot I10 ESSENTIAL (PRIMARY) HYPERTENSION 01/31/2019 RADHA SALAS FACC, RAUL FACP CCDS Ot I25.10 ATHSCL HEART DISEASE OF [place] CORONARY 01/31/2019 RADHA SALAS FACC, ALI FACP CCDS Ot I73.9 PERIPHERAL VASCULAR DISEASE, UNSPECIFIED 01/31/2019 ARDHA SALAS [facility], ALI FACP CCDS Ot R06.02 SHORTNESS OF BREATH 01/31/2019 RADHA SALAS [facility], ALI FACP CCDS Ot R07.89 OTHER CHEST PAIN 01/31/2019 RADHA SALAS [facility], ALI FACP CCDS Ot E78.4 OTHER HYPERLIPIDEMIA 01/31/2019 RADHA SALAS [facility], ALI FACP CCDS Ot I10 ESSENTIAL (PRIMARY) HYPERTENSION 01/31/2019 RADHA SALAS [facility], ALI FACP CCDS Ot I25.10 ATHSCL HEART DISEASE OF [place] CORONARY 01/31/2019 RADHA SALAS [facility], ALI FACP CCDS Ot I73.9 PERIPHERAL VASCULAR DISEASE, UNSPECIFIED 01/31/2019 RADHA SALAS [facility], ALI FACP CCDS Ot R06.02 SHORTNESS OF BREATH 01/31/2019 RADHA SALAS [facility], ALI FACP CCDS Ot R07.89 OTHER CHEST PAIN 01/31/2019 ASHER SOSA DO Ot R06.02 SHORTNESS OF BREATH 01/31/2019 ASHER SOSA DO Ot R91.8 OTHER NONSPECIFIC ABNORMAL FINDING OF [place] 01/31/2019 IANASHER JEAN DO Ot R06.02 SHORTNESS OF BREATH 01/31/2019 URSZULA RODRIGUES APRN Ot 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 01/31/2019 URSZULA RODRIGUES APRN Ot R06.02 SHORTNESS OF BREATH 01/31/2019 URSZULA RODRIGUES APRN Ot R93.8 ABNORMAL FINDINGS ON DIAGNOSTIC IMAGING 01/31/2019 ISAAC HARMON L [facility] Ot E78.4 OTHER HYPERLIPIDEMIA 01/31/2019 MJMAISAAC L [employer] Ot I11.0 HYPERTENSIVE HEART DISEASE WITH HEART FA 01/31/2019 MJMA ISAAC L [employer] Ot I25.10 ATHSCL HEART DISEASE OF [place] CORONARY 01/31/2019 ISAAC HARMON L [employer] Ot I51.7 CARDIOMEGALY 01/31/2019 ISAAC HARMON L [employer] Ot R06.02 SHORTNESS OF BREATH 01/31/2019 ISAAC HARMON L [employer] Ot E78.5 HYPERLIPIDEMIA, UNSPECIFIED 01/31/2019 MJMA, ISAAC L [employer] Ot G47.33 OBSTRUCTIVE SLEEP APNEA (ADULT) (PEDIATR 01/31/2019 ISAAC HARMON [employer] Ot I10 ESSENTIAL (PRIMARY) HYPERTENSION 01/31/2019 ISAAC HARMON [employer] Ot I25.10 ATHSCL HEART DISEASE OF [place] CORONARY 01/31/2019 ISAAC HARMON [employer] Ot I35.1 NONRHEUMATIC AORTIC (VALVE) INSUFFICIENC 01/31/2019 ISAAC HARMON [employer] Ot 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 01/31/2019 ISAAC HARMON [employer] Ot R06.02 SHORTNESS OF BREATH 01/31/2019 ISAAC HARMON [employer] Ot R07.89 OTHER CHEST PAIN Procedures Code Description [place] [address] A1C (IN-HOUSE) 01/27/2013 55539 MICRO ALBUMIN-IN HOUSE 01/27/2013 16698 MICROALBUMIN 01/27/2013 32539 PULMONARY FUNCTION TEST (IN-HOUSE) 02/01/2013 CARDIOLOG RAUL GARCIA 02/01/2013 61407 PULMONARY FUNCTION TEST (IN-HOUSE) 02/18/2013 34352 BRONCHODILATION PRE/POST 02/18/2013 12870 RESPIRATORY FLOW VOLUME LOOP 02/18/2013 78158 PULMONARY EDUCATION 02/18/2013 55896 ROUTINE VENIPUNCTURE 04/20/2013 17297 CMP 04/20/2013 [id number] GFR CALC (RESULT ONLY) 04/20/2013 63339 LIPID PANEL 04/20/2013 13026 TSH 04/20/2013 48499 T4 FREE 04/20/2013 58446 EKG, TRACING (IN-HOUSE) 04/24/2013 90926 ECHO 2D 04/24/2013 48466 NUCLEAR STRESS TESTING 04/24/2013 92046 OXIMETRY 04/24/2013 92660 A1C (IN-HOUSE) 06/03/2013 98575 ROUTINE VENIPUNCTURE 06/22/2013 13229 CMP 06/22/2013 33439 LIPID PANEL 06/22/2013 23198 SKIN TAG REM 1-15 09/05/2013 03531 SHAVE SKIN LESION 0.6-1.0 cm 09/05/2013 79823 XRAY CHEST 2 VIEW 11/24/2013 49042 XRAY CHEST 2 VIEW 04/05/[address] CHEST W/DYE 04/07/2014 56823 ROUTINE VENIPUNCTURE 05/04/2014 65425 CMP 05/04/2014 82139 LIPID PANEL 05/04/2014 31994 A1C (RML) 05/04/2014 17502 CBC 05/04/2014 CARDIOLOG RAUL GARCIA 05/12/2014 28639 I/D SIMPLE ABSCESS 06/21/2014 68565 CAPILLARY BLOOD DRAW 08/04/2014 76882 A1C (IN-HOUSE) 08/04/2014 92075 CMP 08/04/2014 95567 LIPID PANEL 08/04/2014 [id number] GFR CALC (RESULT ONLY) 08/04/2014 Results There is no data. Encounters ACCT No. Visit Date/Time Discharge Status Pt. Type Provider Facility Loc./Unit Complaint [id number] 08/04/2014 10:33:00 08/04/2014 23:59:59 CLS Outpatient EMORY NEGRETE MD [id number] 06/21/2014 09:52:00 06/21/2014 23:59:59 CLS Outpatient JEAN-PIERRE PARRISH MD [id number] 05/11/2014 09:48:00 05/11/2014 23:59:59 CLS Outpatient EMORY NEGRETE MD [id number] 05/04/2014 09:34:00 05/04/2014 23:59:59 CLS Outpatient JEAN-PIERRE PARRISH MD [id number] 04/05/2014 14:42:00 04/05/2014 23:59:59 CLS Outpatient JEAN-PIERRE PARRISH MD [id number] 02/24/2014 13:49:00 02/24/2014 23:59:59 CLS Outpatient EMORY NEGRETE MD [id number] 12/15/2013 14:18:00 12/15/2013 23:59:59 CLS Outpatient JEAN-PIERRE PARRISH MD [id number] 11/24/2013 10:57:00 11/24/2013 23:59:59 CLS Outpatient EMORY NEGRETE MD [id number] 08/22/2013 09:59:00 08/22/2013 23:59:59 CLS Outpatient EMORY NEGRETE MD [id number] 07/29/2013 13:40:00 07/29/2013 23:59:59 CLS Outpatient EMORY NEGRETE MD [id number] 06/23/2013 15:52:00 06/23/2013 23:59:59 CLS Outpatient KRISTA OH MD [id number] 06/22/2013 09:33:00 06/22/2013 23:59:59 CLS Outpatient STELLA CALDERÓN DO [id number] 06/15/2013 00:00:00 06/15/2013 23:59:59 CLS Outpatient KRISTA OH MD [id number] 06/03/2013 15:56:00 06/03/2013 23:59:59 CLS Outpatient K[place]STA OH MD [id number] 04/01/2013 00:00:00 04/01/2013 23:59:59 CLS Outpatient STELLA CALDERÓN DO [id number] 04/20/2013 08:21:00 Document Registration [id number] 02/18/2013 08:36:00 Document Registration [id number] 01/27/2013 13:03:00 Document Registration [id number] 11/25/2018 16:19:01 ACT Unknown [id number] 01/26/2018 08:25:00 01/26/2018 23:59:59 CLS Outpatient ISAAC HARMON [employer] [facility] CARD OTHER CHEST PAIN,CAD,CAROTID ARTERIAL DISEASE [id number] 12/15/2017 14:45:00 12/15/2017 23:59:59 CLS Preadmit URSZULA RODRIGUES APRN [facility] RAD R93.[address] [id number] 06/23/2017 11:09:00 06/23/2017 23:59:59 CLS Outpatient ISAAC HARMON [employer] [facility] CARD CAD,DYSPENA [id number] 11/21/2016 14:15:00 11/21/2016 23:59:59 CLS Outpatient URSZULA RODRIGUES APRN [facility] RAD DYSPNEA [id number] 01/16/2016 19:35:00 01/17/2016 06:37:00 DIS Outpatient ASHER SOSA DO [facility] SLEEP SNORING,CHOKING,GREGORY [id number] 11/28/2015 17:53:00 11/28/2015 23:59:59 CLS Outpatient ASHER SOSA DO [facility] RT SOA [id number] 10/25/2015 17:02:00 10/25/2015 23:59:59 CLS Outpatient IAN ASHER CODY [facility] RAD SOA [id number] 10/23/2015 07:37:00 10/23/2015 23:59:59 CLS Outpatient RADHA SALAS FACC, ALI FACP CCDS [facility] CARD SOB,CHEST DISCOMFORT,LEFT LEG CLAUDICATION [id number] 10/16/2015 07:41:00 10/16/2015 23:59:59 CLS Outpatient RADHA SALAS FACC, ALI FACP CCDS [facility] CARD SOB,CHEST DISCOMFORT [id number] 10/25/2013 10:09:00 10/25/2013 17:45:00 DIS Outpatient RADHA SALAS FACC, ALI FACP CCDS [facility] CATH CP,DYSPENA,CAD, [id number] 04/25/2013 11:29:00 04/25/2013 23:59:59 CLS Outpatient RADHA SALAS FACC, ALI FACP CCDS [facility] RAD CHEST PAIN,HTN,HYPERLIPIDEMIA,HX OF STENTS [id number] 04/20/2013 10:30:00 04/20/2013 23:59:59 CLS Outpatient RADHA SALAS FACC, ALI FACP CCDS [facility] CARD CHEST PAIN,HTN,HYPERLIPIDEMIA,HX OF STENTS [id number] 02/01/2019 10:30:00 PEN Preadmit RADHA SALAS FACC, ALI FACP CCDS [facility] CATH SYNCOPE [id number] 11/24/2012 11:25:00 Document Registration [id number] 03/08/2018 08:00:00 03/08/2018 23:59:59 CLS Outpatient Brigido [employer] [id number] 12/06/2018 13:18:10 Document Registration [id number] 10/12/2018 09:40:00 10/12/2018 10:36:00 DIS Emergency AZRA FUCHS [facility] ED ed visit [id number] 09/30/2018 12:56:34 10/02/2018 12:55:00 DIS Inpatient XAVIER PITTS [facility] MS nausea, vomiting, renal insufficiency [id number] 09/30/2018 08:03:00 09/30/2018 12:54:00 DIS Emergency SJ LUCAS [facility] ED ed visit [id number] 08/25/2018 14:21:35 08/25/2018 23:59:59 DIS Outpatient ANGELIQUE PHILLIPS [facility] RAD Screening Mammogram [id number] 08/11/2018 23:08:00 08/12/2018 02:30:00 DIS Emergency MECHELLEREGINEROSS L [facility] ED ER [id number] 06/30/2018 10:26:14 06/30/2018 23:59:59 CLS Preadmit ANGELIQUE PHILLIPS [facility] RAD Screening Mammogram [id number] 11/25/2018 19:25:06 ACT Document Registration
[2019-02-01] MEDS ORDERED: LIDOCAINE 1% INJ 20 ML 20 ML VIAL INJ ONE (09:45)
[2019-02-01 10:45] VITALS: BP 190/79
--- NOTE | 2019-02-01 10:49 | Cardiac Procedure Note-CS/ASA ---
Pre-Procedure Note Pre-Op Procedure Note H&P Reviewed The H&P was reviewed, patient examined and no changes noted. Date H&P Reviewed: Feb 01, 2019 Time H&P Reviewed: 10:00 Conscious Sedation Pre-Proced Time 10:00 ASA Score 3 For ASA 3 and 4: Consider anesthesia and medical clearance. Also, for patients with a history of failed moderate sedation consider anesthesia. Airway Lungs Heart ASA score ASA 1: a normal healthy patient ASA 2: a patient with a mild systemic disease (mid diabetes, controlled hypertension, obesity ASA 3: a patient with a severe systemic disease that limits activity (angina, COPD, prior Myocardial infarction) ASA 4: a patient with an incapacitating disease that is a constant threat to life (CHF, renal failure) ASA 5: a moribund patient not expected to survive 24 hrs. (ruptured aneurysm) ASA 6: a declared brain- patient whose organs are being harvested. For emergent operations, add the letter E after the classification Mallampati Classification Grade 2 Sedation Plan Analgesia, Amnesia, Plan communicated to team members, Discussed options with patient/fam, Discussed risks with patient/fam The patient is an appropriate candidate to undergo the planned procedure, sedation, and anesthesia. The patient immediately re-assessed prior to indication. RAUL GARCIA MD FACP FAC CCDS Feb 01, 2019 10:49
--- NOTE | 2019-02-01 15:13 | OPERATIVE REPORT ---
DATE OF SERVICE: 02/01/2019 PREOPERATIVE DIAGNOSIS: Syncope. POSTOPERATIVE DIAGNOSIS: Syncope. PROCEDURE: Implantable loop recorder implantation. The patient is a 53-year-old lady who has episodes of syncope which are infrequent. Implantable loop recorder implantation was carried out after having obtained an informed consent. [facility] The left prepectoral area was prepared and draped in the usual sterile fashion. Lidocaine 1% was used for local anesthesia. Tools provided with the Medtronic Reveal LINQ device were used to make a subcutaneous pocket anterior to the left fourth intercostal space into which the device was placed. The device is Medtronic Reveal LINQ with serial #[id number]. The edges were closed using Dermabond and Steri-Strips. She tolerated the procedure well. Job ID: [id number] DocumentID: [id number] Dictated Date: 02/01/2019 10:41:37 [address] Magistrate Date: 02/01/2019 15:12:55 Dictated By: RAUL GARCIA MD, MA, FACP, FACC,
== END 2019-02-01 10:47 | disposition home or self-care (01) ==
LOC: CATH 08:55
PROVIDERS: ATTEND Internal Medicine Cardiovascular Disease
DX: R55 Syncope and collapse (principal); I25.10 Atherosclerotic heart disease of native coronary artery without angina pectoris; I10 Essential (primary) hypertension; E11.9 Type 2 diabetes mellitus without complications; E78.5 Hyperlipidemia, unspecified; G47.33 Obstructive sleep apnea (adult) (pediatric); I73.9 Peripheral vascular disease, unspecified; Z79.82 Long term (current) use of aspirin; Z79.84 Long term (current) use of oral hypoglycemic drugs; Z79.899 Other long term (current) drug therapy; Z87.891 Personal history of nicotine dependence
CPT/HCPCS: 33285

== ENCOUNTER → 2019-04-04 | Outpatient (CLI) | payer OTHER ==
[~2019-04-04] MED LIST changes: +HOLD METFORMIN - RECEIVED CONTRAST 20 ML VIAL IV SCH; +IOHEXOL 350 MG/ML 100 ML (OMNIPAQUE 350) VIAL IV ONE; +NS 100 ML (IVPB) BAG IV ONE; +RT-ALBUTEROL SULF 2.5 MG/3 ML PRE-MIX VIAL INH ONE
[2019-04-04 10:12] LABS: BUN/CREATININE RATIO 28; CREATININE SERUM 0.79 MG/DL (0.60-1.30); GFR ESTIMATED > 60
--- NOTE | 2019-04-04 11:30 | Diagnostic Imaging Report ---
PROCEDURE: CT chest with contrast only. TECHNIQUE: Multiple contiguous axial images were obtained through the chest after administration of intravenous contrast. Auto Exposure Controls were utilized during the CT exam to meet ALARA standards for radiation dose reduction. INDICATION: Shortness of air, hypoxia and COPD. Correlation is made with prior CT chest from 11/21/2016. No axillary lymphadenopathy is detected. Shotty lymph nodes in the mediastinum are again noted. No pathologically enlarged mediastinal lymph nodes are detected. There is no hilar lymphadenopathy. No pericardial or pleural fluid is detected. Previously noted interstitial and groundglass opacities bilateral lungs appear very similar to examination from 2017. Tiny air cysts are seen bilaterally as well. This process appears to be chronic. No new parenchymal mass or new opacities are seen. Upper abdomen is unremarkable. IMPRESSION: Stable chronic changes when compared with examination from 11/21/2016. No new abnormality is detected. Dictated by: Dictated on workstation # [id number]
== END ==
LOC: RT 09:27
PROVIDERS: ATTEND Nurse Practitioner Family
DX: J44.9 Chronic obstructive pulmonary disease, unspecified (principal); J98.4 Other disorders of lung; G47.33 Obstructive sleep apnea (adult) (pediatric)
CPT/HCPCS: 36415; 71260; 82565; 84520; 94060; 94726; 94729

== ENCOUNTER → 2020-09-07 | Outpatient (CLI) | payer MEDICAID ==
[~2020-09-07] MED LIST changes: -HOLD METFORMIN - RECEIVED CONTRAST 20 ML VIAL IV SCH; -IOHEXOL 350 MG/ML 100 ML (OMNIPAQUE 350) VIAL IV ONE; -NS 100 ML (IVPB) BAG IV ONE; -RT-ALBUTEROL SULF 2.5 MG/3 ML PRE-MIX VIAL INH ONE
== END ==
LOC: CARD 14:13
PROVIDERS: ATTEND Nurse Practitioner Family
DX: I08.0 Rheumatic disorders of both mitral and aortic valves (principal)
CPT/HCPCS: 93306